=== PATIENT | male | born 1950 | race Caucasian/White ===

== ENCOUNTER 2024-08-05 05:50 | Emergency (ER) | payer MEDICARE, OTHER, SELFPAY ==
[2024-08-05 05:52] VITALS: BP 126/64
[2024-08-05 07:32] LABS: % Basophils 0.8 % (0-2); % Eosinophils 1.5 % (0-6); % Immature Granulocytes 0.2 % (0-0.5); % Lymphocytes 30.1 % (20.5-51.1); % Neutrophils 60.4 % (42.2-75.2); Absolute Basophils 0.1 10^3/uL (0-0.2); Absolute Eosinophils 0.2 10^3/uL (0-0.7); Absolute Lymphocytes 3.1 10^3/uL (1.2-3.4); Absolute Monocytes 0.7 10^3/uL (0.1-0.6); Absolute Neutrophils 6.1 10^3/uL (1.4-6.5); Hematocrit 44.3 % (39.0-52.0); Hemoglobin 14.6 g/dL (13.0-18.0); Mean Corpuscular Hgb 28.7 pg (27.0-31.0); Mean Corpuscular Volume 87.2 fL (80.0-94.0); Mean Platelet Volume 11.2 fL (7.4-10.4); Nucleated Red Blood Cells % 0 % (-); Platelet Count 166 10^3/uL (130-400); Red Blood Cell Count 5.08 10^6/uL (4.70-6.10); Red Cell Dist. Width 13.2 % (11.5-14.5); White Blood Cell Count 10.2 10^3/uL (4.8-10.8)
[2024-08-05 07:44] VITALS: BP 145/76
[2024-08-05 07:46] VITALS: BP 145/76
[2024-08-05 07:47] LABS: ALT (SGPT) 29 U/L (0-50); AST (SGOT) 21 U/L (17-59); Albumin 4.4 g/dl (3.5-5.0); Alkaline Phosphatase 86 U/L (38-126); Blood Urea Nitrogen 29 mg/dl (9-20); Calcium 9.2 mg/dl (8.4-10.2); Carbon Dioxide 29 mmol/L (22-30); Chloride 103 mmol/L (98-107); Glucose 158 mg/dl (70-99); Potassium 4.2 mmol/L (3.5-5.1); Sodium 141 mmol/L (135-145); Total Bilirubin 0.4 mg/dl (0.2-1.3); Total Protein 6.6 g/dl (6.3-8.2); eGFR 49.16
[2024-08-05 07:52] LABS: NT-proBNP 353 pg/ml
--- NOTE | 2024-08-05 08:22 | ED.GENMED ---
History of Present Illness
General
Chief Complaint: Swelling
Source: patient and spouse
Time Seen by Provider: 08/05/24 07:17
History of Present Illness
History of Present Illness:
74-year-old male with past medical history of hypertension, hyperlipidemia, insulin-dependent diabetes, chronic kidney disease status post renal transplant presenting to the emergency department for a multitude of symptoms including bilateral lower
extremity edema that waxes and wanes, blisters to the right foot, worsening neuropathy, difficulty ambulating due to the pain, difficult to control blood sugars, diarrhea few days ago and also notes last night had some left-sided chest/axillary
discomfort. Patient without any fevers, chills, rigors, nausea, vomiting, abdominal pain. notes that he has had some drainage from the blisters to the right foot which she has never had before and patient is unsure as to how the blisters
ultimately developed. Patient states that the neuropathy presently is not any worse now than his normal. No changes to medications. Of note, patient did recently have CTA of the head and neck due to monitoring of a cerebral aneurysm and due to
previous history of stroke about a year and a half ago.
Past History
Past History
ED Past Medical History: CVA, HTN, Hypercholesterolemia, IDDM, Renal failure (Dialysis and saturday, Right arm fistula), Psychiatric ( anxiety, depression) and Other (Diabetic neuropathy, meningitis,UTI, macular degeneration, diabetic
nephropathy, Narcolepsy, )
ED Past Surgical History: Appendectomy and Other (Right AV fistula. Renal transplant October 2022)
Social History
Tobacco: Former smoker
Alcohol: None
Drug: None
Personal:
Living: with family
Employment: Employed
Family History
Family History: Diabetes
Review of Systems
Review of Systems
All Other Systems: ROS reviewed and negative except as documented in HPI and ROS
Phy Exam
Physical Exam
Physical Exam:
GENERAL: Alert , in no apparent distress
HEAD: NCAT
EYE: clear conjunctiva
NECK: Supple
ENT: o/p clr, mmm.
CARDIAC: Regular rate and rhythm .
LUNGS: Clear breath sounds bilaterally, no acute respiratory distress, no wheezes/rales/rhonchi
NEUROLOGICAL: Alert and oriented x 3
SKIN: Warm and dry, right lower extremity: Large blister spanning the first metatarsal through the midfoot and down towards the calcaneus with some skin sloughing and clear fluid draining. There is also clear fluid-filled blister at the distal 2nd
through 3rd metatarsal going towards the digits. There is no skin breakdown interdigitally. No surrounding erythema
MUSCULOSKELETAL: Trace nonpitting ankle edema left slightly greater than right. Patient has palpable pedal and tibial pulses bilaterally which were confirmed via Doppler. Sensation blunted bilaterally to light touch however patient reports that
this is baseline. Patient still has good range of motion of the digits, foot and ankle.
PSYCH: Normal and appropriate interaction.
Scores
Heart Failure Risk
Heart Failure Risk Score: Not Applicable
Heart Score for Chest Pain Patients
STEMI patient?: Not applicable
Withdrawal Assessment of Alcohol
Withdrawal Assessment Completed?: Not applicable
Course
Orders/Labs/Results
Orders:
Orders
08/05/24 06:08
ECG [Electrocardiogram (*1)] Urgent
Reason for Study: Shortness of Breath
EKG- Treatment ONCE
08/05/24 07:05
BNP [NT-proBNP] Urgent
Complete Blood Count/With Diff Urgent
Comprehensive Metabolic Panel Urgent
Troponin I Urgent
Comment: ADD ON
08/05/24 07:31
US Periph Venous LOWER Ext Jamel Urgent
Comment:
Reason For Exam: edema
08/05/24 07:37
Add On- LAB Urgent
Tests Added?: troponin
Abnormal Lab Results
08/05/24
07:05
MPV 11.2 H fL
(7.4-10.4)
Absolute Monos (auto) 0.7 H 10^3/uL
(0.1-0.6)
BUN 29 H mg/dl
(9-20)
Creatinine 1.5 H mg/dL
(0.7-1.3)
Glucose 158 H mg/dl
(70-99)
08/05/24 07:05
08/05/24 07:05
Vital Signs
Initial and Last Documented VS:
Initial Vital Signs
Temp Pulse Resp BP Pulse Ox
97.9 F 54 20 126/64 97
08/05/24 05:52 08/05/24 05:52 08/05/24 05:52 08/05/24 05:52 08/05/24 05:52
Last Documented Vital Signs
Temp Pulse Resp BP Pulse Ox
97.9 F 55 14 145/76 96
08/05/24 05:52 08/05/24 09:00 08/05/24 09:00 08/05/24 07:46 08/05/24 09:47
MDM/Problems Addressed
Differential Diagnosis Includes:
Worsening of diabetic neuropathy, cellulitis, peripheral vascular/peripheral arterial disease, worsening renal dysfunction, less concern for acute CHF
MDM/Problems Addressed:
74-year-old male presenting to the emergency department for evaluation of a multitude of concerns stemming around worsening neuropathy and blister formation to the right lower extremity. Secondary concerns of blood sugars that have been both high
and low, couple of days ago had some diarrhea and last night had some chest discomfort. My suspicion for any emergent pathologies is quite low due to the amount of concerns patient presented to the ER with today however given his I do feel patient
will likely need further evaluation as an outpatient. While here in the ER we will check labs to ensure stable renal function as well as an ultrasound to rule out DVT. Patient's EKG done in triage is with evidence for ischemia and will also check
a troponin given the reported chest pain last night. Due to his history of diabetes with a blister formation we will likely start patient on an antibiotic for section prevention. He will likely need to follow-up with podiatry as well as wound care
center for further evaluation and he notes he has been seen at [facility] wound care center in the past
Chronic conditions affecting care: DM and Kidney disease
*Radiology
Radiology exam reviewed: radiology read reviewed
*Pulse Oximetry
Patient hypoxic: no
*EKG
Heart Rate: 51
Rate: bradycardiac
Rhythm: sinus arrhythmia
Novinger: normal axis
Ischemia: no ischemia
*Critical Care Note
Total Time (30-74mins, 75-104mins- exclusive of procedures): Not Applicable
Data Reviewed
Review of Other/Old Records Reveals: Labs and Records
Patient Management
Escalation/DeEscalation of care consider admission/obs:
Patient's workup unremarkable for any acute pathology. Prescription for Bactrim was sent to pharmacy to cover for any potential infection. Information for podiatry was provided. Patient already known to wound care center and encouraged to
follow-up with them as well. He will follow-up with primary care provider. Aware of return precautions to the ER
ED Attending Note
-
Portions of this chart may have been created with voice recognition software.� Occasional wrong word or��sound alike� substitutions may have occurred due to the inherent limitations of voice recognition software.
Discharge Plan
Departure
Patient Disposition: Home (Routine Discharge)
Date of Disposition: 08/05/24
Time of Disposition: 09:09
Patient with high blood pressure during this ER visit?: Yes
Discharge Problem:
Blister of foot, right, Blister of foot, left, CKD (chronic kidney disease)
Instructions: Diabetes and infections
Prescriptions:
New
sulfamethoxazole-trimethoprim [Bactrim DS] 800-160 mg tablet
1 tab PO BID 10 Days Qty: 20 0RF
No Action
aspirin 81 MG tablet,chewable
81 mg PO DAILY 0RF
fenofibrate nanocrystallized 145 MG tablet
145 mg PO DAILY
pravastatin 20 MG tablet
20 mg PO DAILY
gabapentin 300 MG capsule
300 mg PO HS
insulin lispro [Humalog KwikPen Insulin] 100 UNIT/ML insulin pen
10 units SC AC
Medical Marijuana
2 - 3 puff inhalation HSPRN PRN (Reason: sleep)
clonazepam 1 MG tablet
1 mg PO BID
Patient Comments:
09/26/2021: last filled 09/07/21, 90 tabs for 30 days from [facility]
valganciclovir 450 mg Tablet
450 mg PO DAILY
carvedilol 6.25 mg Tablet
6.25 mg PO BID
sulfamethoxazole-trimethoprim [Bactrim] 400-80 mg Tablet
1 tab PO DAILY
tolterodine 1 mg Tablet
1 mg PO DAILY
prednisone 5 mg Tablet
5 mg PO DAILY
pantoprazole [Protonix] 40 mg Tablet,Delayed Release (Dr/Ec)
40 mg PO DAILY
ropinirole 0.5 mg Tablet
0.5 mg PO HS
furosemide 20 mg Tablet
20 mg PO DAILY
albuterol 90 mcg/actuation Aerosol
90 mcg INHALATION PRN PRN (Reason: wheezing)
Rx Instructions:
2 puffs into the lungs every 4 hours as needed for wheezing
tacrolimus [Prograf] 1 mg Capsule
2 mg PO Q12H
mycophenolate sodium 180 mg Tablet,Delayed Release (Dr/Ec)
180 mg PO Q12
Rx Instructions:
4 tablets every 12 hours
insulin glargine [Lantus Solostar U-100 Insulin] 100 unit/mL (3 mL) Insulin Pen
25 unit SC HS
vibegron 75 mg Tablet
75 mg PO DAILY
Vitamin D3
50,000 units PO DAILY
hydralazine 25 mg Tablet
25 mg PO TID Qty: 30 0RF
midodrine 5 mg tablet
5 mg PO TID PRN (Reason: for SBP < 100 or dizziness) Qty: 60 0RF
Referrals:
Mary Kwon DPM [Active] - (Podiatry)
UNKNOWN - PT DOES,NOT KNOW [Family Provider] -
Interventions
Interventions:
*Risk Screen - Suicide Last Done: 08/05/24 05:52
*General Assessment Last Done: 08/05/24 07:45
*Neglect/Abuse Screening Last Done: 08/05/24 05:52
*ED COVID-19 Vaccine History Last Done: 08/05/24 07:45
*Nursing Disposition Last Done: 08/05/24 09:51
ED- Cardiac Assessment Last Done: 08/05/24 09:46
ED- Pulmonary Assessment Last Done: 08/05/24 09:47
ED-Skin Assessment Last Done: 08/05/24 09:47
Discharge Date and Time
Discharge Date/Time: 08/05/24 09:52
Print Language: MALIAN
[2024-08-05 08:30] LABS: Troponin I < 0.012 ng/ml
== END 2024-08-05 09:52 | disposition home or self-care (01) ==
LOC: EMR 05:50
PROVIDERS: EMERGENCY PHYSICIAN Emergency Medicine
DX: S90.821A Blister (nonthermal), right foot, initial encounter (principal); S90.822A Blister (nonthermal), left foot, initial encounter; I12.0 Hypertensive chronic kidney disease with stage 5 chronic kidney disease or end stage renal disease; E11.22 Type 2 diabetes mellitus with diabetic chronic kidney disease; X58.XXXA Exposure to other specified factors, initial encounter; N18.6 End stage renal disease; E78.00 Pure hypercholesterolemia, unspecified; F41.9 Anxiety disorder, unspecified; G47.419 Narcolepsy without cataplexy; E11.40 Type 2 diabetes mellitus with diabetic neuropathy, unspecified; Z83.3 Family history of diabetes mellitus; Z86.73 Personal history of transient ischemic attack (TIA), and cerebral infarction without residual deficits; Z87.440 Personal history of urinary (tract) infections; Z87.891 Personal history of nicotine dependence; Z90.49 Acquired absence of other specified parts of digestive tract; Z94.0 Kidney transplant status; Z99.2 Dependence on renal dialysis
CPT/HCPCS: 99284; 80053; 83880; 84484; 85025; 93005; 93970

== ENCOUNTER → 2024-08-07 08:18 | Outpatient (REF) | payer MEDICARE, OTHER, SELFPAY | LOC: WOUND 08:18 | PROVIDERS: ATTENDING PHYSICIAN Surgery; FAMILY PHYSICIAN Internal Medicine | DX: L97.521 Non-pressure chronic ulcer of other part of left foot limited to breakdown of skin (principal); Z94.0 Kidney transplant status; Z79.620 Long term (current) use of immunosuppressive biologic | CPT/HCPCS: 99213 ==

== ENCOUNTER 2024-08-14 13:52 | Inpatient (IN) | payer MEDICARE, OTHER, SELFPAY ==
[2024-08-14] VITALS (8 sets, daily range): BP systolic 129–160; BP diastolic 59–75; BMI 31.7; BMI 30.8
[2024-08-14 11:01] LABS: % Basophils 0.4 % (0-2); % Eosinophils 1.5 % (0-6); % Immature Granulocytes 0.4 % (0-0.5); % Monocytes 9.5 % (1.7-9.3); % Neutrophils 69.2 % (42.2-75.2); Absolute Eosinophils 0.2 10^3/uL (0-0.7); Absolute Lymphocytes 2.1 10^3/uL (1.2-3.4); Absolute Neutrophils 7.6 10^3/uL (1.4-6.5); Hematocrit 40.6 % (39.0-52.0); Hemoglobin 13.6 g/dL (13.0-18.0); Mean Corp Hgb Conc. 33.5 g/dL (33.0-37.0); Mean Corpuscular Hgb 29.1 pg (27.0-31.0); Mean Corpuscular Volume 86.8 fL (80.0-94.0); Mean Platelet Volume 10.5 fL (7.4-10.4); Nucleated Red Blood Cells % 0 % (-); Platelet Count 166 10^3/uL (130-400); Red Blood Cell Count 4.68 10^6/uL (4.70-6.10); Red Cell Dist. Width 13.2 % (11.5-14.5)
[2024-08-14 11:14] LABS: ALT (SGPT) 26 U/L (0-50); AST (SGOT) 21 U/L (17-59); Albumin 4.6 g/dl (3.5-5.0); Alkaline Phosphatase 107 U/L (38-126); Blood Urea Nitrogen 37 mg/dl (9-20); Calcium 9.3 mg/dl (8.4-10.2); Carbon Dioxide 27 mmol/L (22-30); Chloride 103 mmol/L (98-107); Estimated Creatinine Clearance 52 ml/min; Glucose 104 mg/dl (70-99); Potassium 4.9 mmol/L (3.5-5.1); Sodium 139 mmol/L (135-145); Total Bilirubin 0.2 mg/dl (0.2-1.3)
--- NOTE | 2024-08-14 11:25 | ED.GENMED ---
History of Present Illness
General
Chief Complaint: Skin Problem
Source: patient
Exam Limitations: none
Time Seen by Provider: 08/14/24 10:24
Nursing documentation reviewed up to this point in time: agreed with
History of Present Illness
History of Present Illness:
74-year-old male history of renal transplant, hypertension, hyperlipidemia, insulin-dependent diabetes presents from wound care center for concerns for diabetic foot infection. Patient was seen here in 1�15 with waxing and waning swelling to the
right leg which was associated with some blisters on his right talus. he was sent home with bactrim and followed up with wound care
they noticed the blisters are now popped and he has worsening appaernace of the wound and some weeping, pain, redness, and mild redness up the leg concerning for progressing infection
pt has some neuropathy
no fever/chills, injuries, weakness
Past History
Past History
ED Past Medical History: CVA, HTN, Hypercholesterolemia, IDDM, Renal failure (Dialysis and saturday, Right arm fistula), Psychiatric ( anxiety, depression) and Other (Diabetic neuropathy, meningitis,UTI, macular degeneration, diabetic
nephropathy, Narcolepsy, )
ED Past Surgical History: Appendectomy and Other (Right AV fistula. Renal transplant October 2022)
Social History
Tobacco: Former smoker
Alcohol: None
Drug: None
Personal:
Living: with family
Employment: Employed
Family History
Family History: Diabetes
Review of Systems
Review of Systems
Allergies reviewed?: Yes
All Other Systems: Not applicable
Phy Exam
Physical Exam
Physical Exam:
GENERAL: Alert , in no apparent distress
EYE: pupils equal and reactive
NECK: Supple
ENT: o/p clr, mmm.
CARDIAC: Regular rate and rhythm . palpable DP pulse; warm foot
LUNGS: Clear breath sounds bilaterally, no acute respiratory distress, no wheezes/rales/rhonchi
ABDOMEN: Soft, without focal tenderness, no r/g, no cvat, normal bowel sounds
NEUROLOGICAL: Alert and oriented, no focal neuro deficits,
sensation slightly diminished feet b/l
strength intact
SKIN: Warm
R side toes have unroofed blisters, erythematous skin with some streaking erythema and
MUSCULOSKELETAL: No edema, well perfused. neg sid's sign
PSYCH: Normal and appropriate interaction.
Course
Orders/Labs/Results
Orders:
Orders
08/14/24 Breakfast
2000 calorie (17 carb) Diabetic
At Your Request: Full Participation
Does patient need a safe tray?: No
08/14/24 10:49
C-Reactive Protein Urgent
Comment: ADD ON
CMP [Comprehensive Metabolic Panel] Urgent
Complete Blood Count/With Diff Urgent
Erythrocyte Sed Rate Urgent
Comment: ADD ON
08/14/24 11:18
Add On- LAB Urgent
Tests Added?: crp, esr
08/14/24 11:19
CR Foot - Right Min 3 Views Urgent
Comment:
Reason For Exam: foot infection diabetic
08/14/24 11:49
Lactic Acid Urgent
Blood Culture Urgent
OWEN Source: Blood/Venous
Specimen Description:
08/14/24 11:54
Piperacillin/Tazo 3.375 Gram [Zosyn] 3.375 gram in 50 ml IV NOW
08/14/24 12:31
HYDROmorphone [Dilaudid] 0.5 mg IV NOW STA
08/14/24 12:41
Vancomycin [Vancocin] 1,500 mg 0.9% Sodium Chloride 500 ml [Nss] 500 ml IV NOW
08/14/24 13:23
Admit/Transfer Patient As Directed
Co-Sign Provider:
Level of Care: Inpatient admission
Assign to:: Medical/Surgical
Physician / Group: veldanda
Diagnosis: DM foot infection
Reason for Hospitalization: DM foot infectin
Expected length of stay greater than two midnights?: Yes
ELOS- Estimated Length of Stay in days: 3
I certify the patient meets the requirements for IP care: Yes
PRN Pain Medication Management As Directed
May give lesser potent ordered pain med per pt: Yes
preference::
Protocol:: Medication orders for pain may be administered in a
manner that supports deferring to patient preference
when the pt is:
- Requesting an ordered lesser potent pain medication.
Least to most potent pain medications are defined
as: acetaminophen < NSAID < tramadol < opioids
(morphine, oxycodone, hydromorphone).
- Requesting a lesser dose of the same medication IF
ORDERED.
- Requesting a less intrusive route of administration
if both routes are prescribed by the provider (PO <
IV).
08/14/24 13:24
Code Status As Directed
Resuscitation Status: Full Code
08/14/24 13:32
PODIATRY CONSULT Routine
Consulting Provider: Jermaine Samano
Was physician already notified: Yes
08/14/24 17:49
WOUND/OSTOMY CONSULT Routine
Reason for Consult: right foot wounds
Acetaminophen [Tylenol/Feverall] 650 mg RECTAL Q4HPRN PRN
Acetaminophen [Tylenol] 650 mg PO Q4HPRN PRN
Clonazepam [Klonopin] 1 mg PO BIDPRN PRN
Dextrose 50%-Water [Dextrose 50% Syringe] 12.5 grams IV [id number] PRN
Glucagon [GlucaGen] 1 mg IM PRN PRN
Insulin Aspart Corrective Low [Novolog Flexpen-Low Resistance] See Protocol SC AC
Tacrolimus [Prograf] 2 mg PO Q12H
insulin lispro [Humalog KwikPen Insulin] 5 units SC AC
Activity As Directed
Activity Level: Out of Bed-Early Mobility
Bedside Glucose Monitoring As Directed
Frequency: AC&HS
Additional Instructions:: Change to q6h if pt on TPN, tube feeding or not eating
Intake/ Output As Directed
Frequency: Per unit guidelines
Vital Signs As Directed
Frequency: Per unit guidelines
DX Deep Vein Thrombosis Video Routine
08/14/24 20:00
Carvedilol [Coreg] 6.25 mg PO BID
Heparin 5,000 units SC Q12
Mycophenolic Acid Dr [Myfortic Delayed Rel.] 720 mg PO BID
omega-3 acid ethyl esters [Lovaza] 2 cap PO BID
08/14/24 22:00
insulin glargine [Lantus Solostar U-100 Insulin] 10 unit SC HS
08/15/24 06:00
Basic Metabolic Panel IN AM
Complete Blood Count/No Diff IN AM
Glycohemoglobin (HgbA1c) IN AM
08/15/24 08:00
Aspirin Low Dose EC [Aspir Low (Enteric Coated)] 81 mg PO DAILY
Atorvastatin [Lipitor] 40 mg PO DAILY
Prednisone [Deltasone] 5 mg PO DAILY
magnesium oxide 400 mg PO DAILY
vibegron 75 mg PO DAILY
08/16/24 06:00
Basic Metabolic Panel IN AM
Complete Blood Count/No Diff IN AM
08/17/24 06:00
Basic Metabolic Panel IN AM
Complete Blood Count/No Diff IN AM
08/18/24 06:00
Complete Blood Count/No Diff IN AM
Abnormal Lab Results
08/14/24
10:49
WBC 11.0 H 10^3/uL
(4.8-10.8)
RBC 4.68 L 10^6/uL
(4.70-6.10)
MPV 10.5 H fL
(7.4-10.4)
Absolute Neuts (auto) 7.6 H 10^3/uL
(1.4-6.5)
Absolute Monos (auto) 1.0 H 10^3/uL
(0.1-0.6)
Lymphocytes % 19.0 L %
(20.5-51.1)
Monocytes % 9.5 H %
(1.7-9.3)
BUN 37 H mg/dl
(9-20)
Creatinine 1.6 H mg/dL
(0.7-1.3)
Glucose 104 H mg/dl
(70-99)
C-Reactive Protein 17.80 H mg/L
(0.0-10.00)
08/14/24 10:49
08/14/24 10:49
Vital Signs
Initial and Last Documented VS:
Initial Vital Signs
Temp Pulse Resp BP Pulse Ox
37.0 C 60 20 146/65 97
08/14/24 09:30 08/14/24 09:30 08/14/24 09:30 08/14/24 09:30 08/14/24 09:30
Last Documented Vital Signs
Temp Pulse Resp BP Pulse Ox
37.0 C 60 20 159/75 94
08/14/24 09:30 08/14/24 09:30 08/14/24 09:30 08/14/24 14:00 08/14/24 13:28
MDM/Problems Addressed
Differential Diagnosis Includes:
diabetic food ulcer, cellulitis, osteomyeltiiss
MDM/Problems Addressed:
74 y/o M with h/o renal TXP 2022
IDDM, diabetic neuropathy
came here 08/05 for foot blisters and some leg swelling; had neg dvt US and was started on bactrim
went to dr. lopez who saw him last week adn then again today and sent him in for worsening diabetic foot infection: blisters popped, underlying erythema, some weeping;
no fever
cr is 1.6 which is relatively unchanged; good pulse; xray shows no obvious osteo. vanc/zosyn
*Critical Care Note
Total Time (30-74mins, 75-104mins- exclusive of procedures): Not Applicable
ED Attending Note
-
Portions of this chart may have been created with voice recognition software.� Occasional wrong word or��sound alike� substitutions may have occurred due to the inherent limitations of voice recognition software.
Discharge Plan
Departure
Patient Disposition: Admit
Date of Disposition: 08/14/24
Time of Disposition: 12:28
Admit to: Med/Surg
Presentation/result/management discussed w/ accepting MD/DO: Hospitalist
Patient with high blood pressure during this ER visit?: No
Condition: Fair
Covid-19: Not Applicable
Discharge Problem:
Diabetic foot infection
Interventions
Interventions:
*Risk Screen - Suicide Last Done: 08/14/24 09:30
*General Assessment Last Done: 08/14/24 09:30
*Neglect/Abuse Screening Last Done: 08/14/24 09:30
ED- Fall Risk Assessment Last Done: 08/14/24 10:40
*ED COVID-19 Vaccine History Last Done: 08/14/24 10:36
*Nursing Disposition Last Done: 08/14/24 17:40
ED-Skin Assessment Last Done: 08/14/24 10:36
Discharge Date and Time
Discharge Date/Time: 08/14/24 17:41
[2024-08-14] MEDS: ZOSYN 50 IV (12:09)
[2024-08-14 12:11] LABS: Lactic Acid 1.2 mmol/L (0.7-2.0)
[2024-08-14 12:20] LABS: Erythrocyte Sed Rate 15 mm/hour (0-20)
[2024-08-14] MEDS: DILAUDID 0.5 MG IV ×2 (12:33→22:51)
[2024-08-14] MEDS: VANCOCIN 530 MG IV (12:49)
--- NOTE | 2024-08-14 13:03 | HPS.HSE ---
Family Physician
-
Family Physician: Ben Suarez
Chief Complaint
-
Left foot diabetic infection
History of Present Illness
74-year-old male history of renal transplant, hypertension, hyperlipidemia, insulin-dependent diabetes presents from wound care center for concerns for diabetic foot infection. Patient stated, he was started a week and a half ago with a small
blister on his left great toe. patient was seen here in 08/05 wit swelling to the right leg which was associated with some blisters on his right talus. Patient was sent home on Bactrim. He was evaluated by wound care a week ago. He was doing his
wound care as instructed by wound care physician. Today he was evaluated at the wound care again and asked him to come to the ER. the blisters spreaded to the rest of his toes and the blisters popped. noticed worsening swelling, bleeding. Patient
denied any fever, chills, chest pain, short of breath. Patient denied any headache, dizzy, syncope. Patient denied any abdominal pain, nausea, vomiting or diarrhea. Patient denied dysuria hematuria.
Patient received Vanco, Zosyn, Dilaudid in ER. Admitting for further management. Blood culture sent from
Medical History
Past Medical History
Past Medical History: Reports Other
Additional Past Medical History:
Peripheral artery disease
End-stage renal disease
Type 2 diabetes
Urinary retention
Hypertension
Obstructive sleep apnea
ADHD
Rectal dysfunction
Anxiety
Diabetic neuropathy
Retinopathy
Orthostatic hypotension
UTI
Past Surgical History: Reports Other
Additional Past Surgical History:
Appendectomy
Laser treatment of both eyes
Right upper extremity speech slow reaction
Right upper extremity fistulogram
Right upper extremity fistula revision
Social History
Tobacco: Non-smoker
Alcohol: None
Drug: None
Personal:
Living: With Family
Family History
Family History: Not pertinent
Allergies / Home Medications
Allergies reflects when Allergies were last updated in [employer].
Home Medications with original date entered in [employer]
Allergy/Medication List:
Allergies
Allergy/AdvReac Type Severity Reaction Status Date / Time
No Known Allergies Allergy Verified 08/14/24 09:32
Home Medications
gabapentin 300 mg capsule 300 mg PO BID Pain 12/14/21
insulin lispro 100 unit/mL subcutaneous pen (Humalog KwikPen (U-100) Insulin) 10 units SC AC Diabetes 12/14/21
clonazepam 1 mg tablet 1 mg PO BIDPRN PRN anxiety 09/25/22
carvedilol 6.25 mg tablet 6.25 mg PO BID Heart Disease/Condition 07/23/23
furosemide 20 mg tablet 20 mg PO DAILY Fluid Retention/Swelling 07/23/23
insulin glargine 100 unit/mL (3 mL) subcutaneous pen (Lantus Solostar U-100 Insulin) 45 unit SC HS diabetes 07/23/23
pantoprazole 40 mg tablet,delayed release (Protonix) 40 mg PO DAILY Gastrointestinal Issue 07/23/23
prednisone 5 mg tablet 5 mg PO DAILY Anti-Inflammatory 07/23/23
tacrolimus 1 mg capsule, immediate-release (Prograf) 2 mg PO Q12H renal transplant 07/23/23
valganciclovir 450 mg tablet 450 mg PO DAILY infection prophylaxis 07/23/23
vibegron 75 mg tablet 75 mg PO DAILY Urinary Issue 07/23/23
sulfamethoxazole 800 mg-trimethoprim 160 mg tablet (Bactrim DS) 1 tab PO BID 10 days #20 tabs 08/05/24
aspirin 81 mg tablet,delayed release 81 mg PO DAILY 08/14/24
atorvastatin 40 mg tablet (Lipitor) 40 mg PO DAILY 08/14/24
fenofibrate nanocrystallized 145 mg tablet 145 mg PO DAILY 08/14/24
hydralazine 25 mg tablet 25 mg PO TID 08/14/24
midodrine 5 mg tablet 5 mg PO TIDPRN PRN lower bp 08/14/24
mycophenolate sodium 180 mg tablet,delayed release 180 mg PO BID 08/14/24
omega-3 acid ethyl esters 1 gram capsule (Lovaza) 2 cap PO BID 08/14/24
tolterodine 1 mg tablet 1 mg PO DAILY 08/14/24
Review of Systems
-
Constitutional: Reports No Symptoms
EENT: Reports No Symptoms
Respiratory: Reports No Symptoms
Cardiac: Reports No Symptoms
Abdomen/GI: Reports No Symptoms
: Reports No Symptoms
Musculoskeletal: Reports No Symptoms
Skin: Reports Other (Right foot/toes wounds )
Neurological: Reports No Symptoms
Endocrine: Reports No Symptoms
Hematologic/Lymphatic: Reports No Symptoms
Psych: Reports No Symptoms
Physical Exam
Vital Signs
Vital Signs
Temp Pulse Resp BP Pulse Ox
98.6 F 60 20 129/72 96
08/14/24 09:30 08/14/24 09:30 08/14/24 09:30 08/14/24 12:09 08/14/24 12:30
Physical Exam
General: Well Developed, Well Nourished and No Apparent Distress
HEENT: NormoCephalic, Moist mucous membranes and Atraumatic
Respiratory: Clear
Cardiac: S1/S2 and Regular Rhythm; No Murmur or Rub
GI: Soft, Non Tender, Non Distended and Normal Bowel Sounds; No Organomegaly
Rectal: Deferred by Provider
Musculoskeletal: No Clubbing, No Cyanosis and Other (Right toes wounds, bleeding, swelling. )
Skin: No Rash
Neuro: AO x 3 and Nonfocal/grossly intact
Psych: Calm
Laboratory Results
-
08/14/24 10:49
08/14/24 10:49
Laboratory Results
Lactic Acid 1.2 mmol/L (0.7-2.0) 08/14/24 11:49
Total Bilirubin 0.2 mg/dl (0.2-1.3) 08/14/24 10:49
AST 21 U/L (17-59) 08/14/24 10:49
ALT 26 U/L (0-50) 08/14/24 10:49
Alkaline Phosphatase 107 U/L (38-126) 08/14/24 10:49
Data Reviewed
-
Diagnostic Radiology: Report Reviewed by me
Lab Data: Labs Reviewed by me
Impression/Plan
-
# Diabetic right foot infections
-X-ray negative for osteo
-Vanco and Zosyn continue
-Blood culture sent from
-Wound care consulted
-WBC of 11.0, CRP 17.80
# CKD stage IIIb
#Renal Transplant Status
�- s/p renal transplant in 10/2022.
-Creatinine 1.6
-Continue to monitor
-Mycophenolate, prednisone, Prograf continued
#Orthostatic Hypotension
-Patient using compression stockings
-Oral midodrine 5 mg 3 times daily as needed for symptomatic care.
#Hypertension, uncontrolled
-Blood pressure stable
-Coreg continued with hold parameters
# Hyperlipidemia
-Atorvastatin continued
#DM-II
�-Lantus 10 units at bedtime
-Lispro 5 with meals
-Sliding scale
-CHO diet
#Anxiety / Insomnia
�-Clonazepam continued
#DVT Prophylaxis:� SCDs
#Code Status:� Full
--- NOTE | 2024-08-14 13:05 | PHANOTE ---
Addendum entered by Arabella Squires 08/14/24 14:40:
patient gave me debby celphone number [phone] and son norm [phone]
Addendum entered by Arabella Squires 08/14/24 13:14:
patient does not ecw records, last message in [facility] was patient transferred to [facility]. called [phone] to have [facility] fax of med list
Original Note:
med rec note- unable to confirm meds with patient he keeps saying i think so to most of the medication he note filled in the past 1 or more. the number on file for family is not correct and does not work. patient also claims he has medical marijuana
card but he daughter buys the items for herself
--- NOTE | 2024-08-14 13:34 | W.PN.UPDATE ---
Update Note
Progress Note Update
This is an addendum to the H&P written by Faina Gomez on 08/14/2024. Patient seen and examined independently with [facility].
74-year-old male past medical history of CAD, hypertension, hyperlipidemia, diabetes, diabetic neuropathy, CKD s/p renal transplant, CVA, anxiety/depression, presenting for bleeding blisters of the right foot toes.
He came to the emergency room on 08/05 was prescribed Bactrim and followed up with wound care who referred him to the emergency room given worsening blisters.
He has bleeding blisters of the right toes as well as right heel.
Labs unremarkable. Renal function at baseline.
X-ray of the foot shows prominent soft tissue edema without evidence of osteomyelitis.
Vancomycin and Zosyn. Wound care consulted. Podiatry consulted for potential debridement.
--- NOTE | 2024-08-14 15:06 | CON.ID ---
Consultation
-
Date/Time Consultation Requested: August 14, 2024 1445
Date/Time Consultation Performed: August 14, 2024 1510
Requesting Provider: Faina MENDEZ
Performing Provider: Dr. Sandy Fraire
Reason for Consultation: Foot wound
Chief Complaint / Past History
Chief Complaint
Worsening foot wound
History of Present Illness
73-year-old man with history of diabetes and diabetic nephropathy ultimately resulting in end-stage renal disease s/p renal transplant in October 2022, who [facility] today due to worsening foot wounds. Patient presented to ED on
08/05 with about 1 to weeks of BLE edema with blisters right great toe, lateral foot and arch, left foot plantar blister. DVT ruled out. He was discharged on Bactrim DS 1 tab bid and referred to [facility]. Seen at [facility] 08/07 blisters noted R>L
feet. PCP deemed peripheral edema and blisters thought to be due to IV belatacept (started 07/05/2023) which was discontinued about a month ago. He had follow-up today at [facility], noted to have skin sloughing and sent to ED. He has neuropathy but
feels burning sensation over wounds. He reports the skin started peeling off after he took a shower. Pt denies fevers or chills. Denies new medicine.
Past History
Additional Past Medical History:
Diabetes with neuropathy and nephropathy
ESRD; previously on HD
Living related donor renal transplant 10/31/2022 at [place]
CKD3
HTN
Dyslipidemia
CAD
CVA
YASH on CPAP
Anxiety/depression
Macular degeneration
Narcolepsy
ADHD
Appendectomy
Right AV fistula
TURP
Knee arthroscopic surgery
Allergy History:
No Known Allergies Allergy (Verified 08/14/24 09:32)
Medications Reviewed: Yes
Current Antibiotics:
Vancomycin
Zosyn
Social History
Tobacco: Former Smoker
Alcohol: None
Drug: None
Personal:
Living: With Family
Employment: Retired ([employer])
Family History
Family History: Not Pertinent
Review of Systems
Review of Systems
General: Negative Fever, Chills or Change in Appetite
HEENT: Negative Sinus Problems, Headache or Pharyngitis
Cardiovascular: Edema; Negative Chest Pain or Dyspnea
Respiratory: Negative Dyspnea or Cough
Gasteroenterology: Negative Nausea, Vomiting or Diarrhea
Genital / Urological: Negative Dysuria or Flank Pain
Endocrine: Negative Weakness
Neurological: Negative Dizziness
All systems: All other systems were reviewed and were negative
Vital Signs
Temp Pulse Resp BP Pulse Ox
98.6 F 60 20 159/75 94
08/14/24 09:30 08/14/24 09:30 08/14/24 09:30 08/14/24 14:00 08/14/24 13:28
Physical Exam
Physical Exam
Constitutional: No Acute Distress, Comfortable and Obese
Eyes: No Conjunctival Hemorrhage and Sclera Anicteric
Cardiovascular: Regular Rate and S1/S2
Pulmonary: Clear
Gastrointestinal: Soft, Non Tender, Non Distended and Normal Bowel Sounds
Genito-Urinary: Other (RLQ transplant kidney non-tender)
Extremities: Edema (BLE 2 to 3+) and Pulses (palpable pedal pulses B/L)
Wound: Other (Right foot: sloughing skin first, 2nd, 3rd, 4th toes with underlying bright red tissue, some necrosis 2nd toe, along entire lateral foot is blister open at both ends, large blister on plantar foot, mild erythema dorsum of foot; Left
foot plantar large flat blister)
Neurological: AO x 3
Lab / Diagnostic Study Results
08/14/24 10:49
08/14/24 10:49
Abs Immat Gran (auto) 0.0 10^3/uL (0-0.05) 08/14/24 10:49
Absolute Neuts (auto) 7.6 10^3/uL (1.4-6.5) H 08/14/24 10:49
Absolute Lymphs (auto) 2.1 10^3/uL (1.2-3.4) 08/14/24 10:49
Absolute Monos (auto) 1.0 10^3/uL (0.1-0.6) H 08/14/24 10:49
Absolute Basos (auto) 0.0 10^3/uL (0-0.2) 08/14/24 10:49
Immature Gran % 0.4 % (0-0.5) 08/14/24 10:49
Neutrophils % 69.2 % (42.2-75.2) 08/14/24 10:49
Lymphocytes % 19.0 % (20.5-51.1) L 08/14/24 10:49
Monocytes % 9.5 % (1.7-9.3) H 08/14/24 10:49
Eosinophils % 1.5 % (0-6) 08/14/24 10:49
Basophils % 0.4 % (0-2) 08/14/24 10:49
ESR 15 mm/hour (0-20) 08/14/24 10:49
Lactic Acid 1.2 mmol/L (0.7-2.0) 08/14/24 11:49
C-Reactive Protein 17.80 mg/L (0.0-10.00) H 08/14/24 10:49
Microbiology Results
Micro:
08/14/24 11:49 Blood Culture - Pending
Blood/Venous
08/14/24 R Foot XRAY: Prominent soft tissue edema within the foot and great toe. No erosions or evidence for osteomyelitis, noting that radiographs are relatively insensitive for detection of this pathology.
Assessment / Plan
# Significant ruptured blisters right foot with large area of exposed wound tissue
- Chemoprophylaxis with IV cefazolin 2gIV q8 to prevent bacterial infection of wounds
- DC Vanco and Zosyn
- Will likely need debridement of sloughing skin
- Wound care.
# Renal transplant on tacrolimus, mycophenolate, prednisone
- IV belatacept started 06/2023 and discontinued last month due to possible source of peripheral edema/blisters.
# Conditions prior to admission
Diabetes with neuropathy and nephropathy
ESRD; previously on HD
Living related donor renal transplant 10/31/2022 at [place]
CKD3
HTN
Dyslipidemia
CAD
CVA
YASH on CPAP
Anxiety/depression
Macular degeneration
Narcolepsy
ADHD
Appendectomy
Right AV fistula
TURP
Knee arthroscopic surgery
[2024-08-14 17:44] LABS: Glucose - Point of Care 159 mg/dl (70-99)
--- NOTE | 2024-08-14 17:57 | W.PN.UPDATE ---
Update Note
Progress Note Update
Patient seen at bedside, no concern for abscess
-ID Consult, continue ABx
-Weight bearing left side for transfers right side non weight bearing
-recommend bilateral MRIs, will sign off if negative for abscess
-Wound care consult
[2024-08-14] MEDS: NOVOLOG FLEXPEN 5 UNITS SC (18:13)
[2024-08-14] MEDS: NOVOLOG FLEXPEN-LOW RESISTANCE 1 UNITS SC (18:13)
[2024-08-14] MEDS: MYFORTIC DELAYED REL. 720 MG PO (19:55)
[2024-08-14] MEDS: HEPARIN 5000 UNITS SC (19:55)
[2024-08-14] MEDS: PROGRAF 2 MG PO (19:55)
[2024-08-14] MEDS: COREG 6.25 MG PO (20:08)
[2024-08-14] MEDS: ANCEF 10 IV (21:08)
[2024-08-14] MEDS: KLONOPIN 1 MG PO (21:10)
[2024-08-14] MEDS: LANTUS 0.1 UNITS SC (21:10)
[2024-08-14 21:19] LABS: Glucose - Point of Care 213 mg/dl (70-99)
[2024-08-15] MEDS: ANCEF 10 IV ×3 (05:19→21:45)
[2024-08-15 07:00] VITALS: BP 142/67
--- NOTE | 2024-08-15 08:02 | W.PN.HOSP.TC ---
Today's Communication/Plan
-
see bold
Assessment / Plan
Assessment / Plan
Gen: NAD, AAOx3.
Eyes: EOMI, PERRLA, no scleral icterus.
Neck: supple.
CV: RRR, +S1/S2, no m/r/g.
Resp: CTAB, no rales, wheezes, or rhonchi.
Abd: +BS, soft, NT, ND
Skin: C/D/I dressing RLE, No rashes.
Neuro: CN 2-12 intact, non-focal.
Psych: Normal mood and affect.
MRI R foot w/wo: Moderate diffuse edema throughout the dorsal midfoot suggesting cellulitis. No loculated fluid collections. No MR evidence for osteomyelitis. Scattered mild degenerative changes.
RLE U/S: No evidence of DVT of the right lower extremity. Mild right calf edema.
Diabetic right foot infection/cellulitis:
-Immunosuppressed
-MRI without OM
-cont Ancef as per ID
-follow BCx
-Wound care c/s
Other problems:
CKD3b: s/p renal transplant in 10/2022, cont Mycophenolate, prednisone, Prograf
Orthostatic Hypotension: compression stockings, Midodrine PRN
Essential Hypertension: cont Coreg
Hyperlipidemia: cont statin
DM2: cont Lantus/premeal Novolog, SSI/accuchecks, check a1c
Anxiety, Insomnia: cont clonazepam
Obesity due to excess calories
FULL/SCDs
Anticipated Discharge: 24 - 48 hours
Subjective/Interval History
-
Date of Service: August 15, 2024
No new complaints.
Objective Data
-
Labs:
Laboratory Results
08/15/24
07:45
WBC Pending
Hgb Pending
Hct Pending
Plt Count Pending
Sodium Pending
Potassium Pending
Chloride Pending
Carbon Dioxide Pending
BUN Pending
Creatinine Pending
Glucose Pending
Calcium Pending
Vital Signs:
Vital Signs
Temp Pulse Resp BP Pulse Ox
97.3 F 68 18 160/74 95
08/14/24 23:52 08/14/24 23:52 08/14/24 23:52 08/14/24 23:52 08/14/24 23:52
I&O
08/14/24 08/15/24 08/16/24
06:59 06:59 06:59
Intake Total 960 / 960
Output Total 300 / 300
Balance 660 / 660
[2024-08-15 08:12] LABS: Hemoglobin 13.3 g/dL (13.0-18.0); Mean Corp Hgb Conc. 32.4 g/dL (33.0-37.0); Mean Corpuscular Hgb 28.5 pg (27.0-31.0); Mean Corpuscular Volume 87.8 fL (80.0-94.0); Mean Platelet Volume 10.9 fL (7.4-10.4); Platelet Count 170 10^3/uL (130-400); Red Blood Cell Count 4.67 10^6/uL (4.70-6.10); Red Cell Dist. Width 13.2 % (11.5-14.5); White Blood Cell Count 9.6 10^3/uL (4.8-10.8)
[2024-08-15 08:47] LABS: Blood Urea Nitrogen 25 mg/dl (9-20); Calcium 8.7 mg/dl (8.4-10.2); Carbon Dioxide 24 mmol/L (22-30); Chloride 104 mmol/L (98-107); Estimated Creatinine Clearance 59 ml/min; Glucose 223 mg/dl (70-99); Potassium 5.1 mmol/L (3.5-5.1); Sodium 138 mmol/L (135-145)
[2024-08-15 08:48] LABS: Glucose - Point of Care 217 mg/dl (70-99)
[2024-08-15] MEDS: MYFORTIC DELAYED REL. 720 MG PO ×2 (09:02→20:35)
[2024-08-15] MEDS: ASPIR LOW (ENTERIC COATED) 81 MG PO (09:03)
[2024-08-15] MEDS: MAG-TAB SR 84 MG PO (09:03)
[2024-08-15] MEDS: DELTASONE 5 MG PO (09:03)
[2024-08-15] MEDS: LIPITOR 40 MG PO (09:03)
[2024-08-15] MEDS: COREG 6.25 MG PO ×2 (09:03→20:43)
[2024-08-15] MEDS: NOVOLOG FLEXPEN-LOW RESISTANCE 2 UNITS SC ×3 (09:11→18:45)
[2024-08-15] MEDS: NOVOLOG FLEXPEN 5 UNITS SC ×2 (09:11→13:38)
[2024-08-15] MEDS: PROGRAF 2 MG PO ×2 (09:25→20:35)
[2024-08-15] MEDS: TYLENOL 650 MG PO ×2 (09:25→17:25)
[2024-08-15] MEDS: DILAUDID 0.5 MG IV ×3 (09:26→21:45)
[2024-08-15] MEDS: HEPARIN 5000 UNITS SC ×2 (11:32→20:35)
--- NOTE | 2024-08-15 11:54 | CM ---
Addendum entered by Sharda Mattson RN 08/15/24 12:00:
CM reviewed podiatry's note. Podiatry is recommending nonweightbearing on
right lower extremity and left foot weightbearing for transfers only.
Cm requested PT evaluation to assist with discharge planning efforts .
Original Note:
CM reviewed medical records. Patient lives independently with . Patient does not have a history of SNF. Patient had VN in the past but unclear the agency. Patient is active with his transplant care team and PCP> Patient has medication coverage.
PLAN: home vs. Home with VN.
[2024-08-15 12:58] LABS: Glucose - Point of Care 238 mg/dl (70-99)
[2024-08-15 13:22] LABS: Glycohemoglobin (HgbA1c) 7.4 % (4.0-5.6)
--- NOTE | 2024-08-15 14:02 | W.PN.ID1 ---
Date of Service
Date of Service: August 15, 2024
Today's Communication
Continue cefazolin.
Assessment / Plan
# Significant ruptured blisters right foot with large area of exposed wound tissue
- MRI of right foot: no osteo, no abscess
-Arterial duplex/CAM pending
- Continue IV cefazolin 2gIV q8h for now
- Continue Wound care.
# Renal transplant on tacrolimus, mycophenolate, prednisone
- IV belatacept started 06/2023 and discontinued last month due to possible source of peripheral edema/blisters.
# Conditions prior to admission
Diabetes with neuropathy and nephropathy
ESRD; previously on HD
Living related donor renal transplant 10/31/2022 at [place]
CKD3
HTN
Dyslipidemia
CAD
CVA
YASH on CPAP
Anxiety/depression
Macular degeneration
Narcolepsy
ADHD
Appendectomy
Right AV fistula
TURP
Knee arthroscopic surgery
Chief Complaint
-: Other (wounds)
Subjective / Review of Systems
complain of wound pain
Vital Signs / Physical Exam
Vital Signs
Vital Signs
Temp Pulse Resp BP Pulse Ox
97.7 F 70 18 142/67 95
08/15/24 07:00 08/15/24 07:00 08/15/24 07:00 08/15/24 07:00 08/15/24 07:00
Physical Exam
Constitutional: No Acute Distress
Cardiovascular: Regular Rate and S1/S2
Pulmonary: Clear
Gastrointestinal: Soft, Non Tender and Non Distended
Extremities: Edema (Decreased BLE )
Wound: Other
Neurological: AO x 3
Objective Data
Lab Data
Lab Results
08/15/24 07:45
08/15/24 07:45
ESR 15 mm/hour (0-20) 08/14/24 10:49
Estimated Creat Clear 59 ml/min 08/15/24 07:45
Lactic Acid 1.2 mmol/L (0.7-2.0) 08/14/24 11:49
Total Bilirubin 0.2 mg/dl (0.2-1.3) 08/14/24 10:49
AST 21 U/L (17-59) 08/14/24 10:49
ALT 26 U/L (0-50) 08/14/24 10:49
Alkaline Phosphatase 107 U/L (38-126) 08/14/24 10:49
C-Reactive Protein 17.80 mg/L (0.0-10.00) H 08/14/24 10:49
Most recent labs reviewed.
Micro Results:
08/14/24 11:49 Blood Culture - Preliminary
Blood/Venous No Growth in 24 hours- Final report to follow
08/14/24 R Foot XRAY: Prominent soft tissue edema within the foot and great toe. No erosions or evidence for osteomyelitis, noting that radiographs are relatively insensitive for detection of this pathology.
[2024-08-15 15:00] VITALS: BP 134/63
[2024-08-15 17:31] LABS: Glucose - Point of Care 247 mg/dl (70-99)
--- NOTE | 2024-08-15 17:33 | PTCARENOTE ---
Patient bilateral feet dressings remain c/d/i. WOCN consult ordered placed for Saturday. Pt pain being controlled with PRN IV Dilaudid and Tylenol per order. RN educated patient on weight bearing status, insulin and diabetic diet, medications and plan
of care.
[2024-08-15] MEDS: NOVOLOG FLEXPEN SC (18:43)
[2024-08-15 18:56] LABS: Glucose - Point of Care 231 mg/dl (70-99)
[2024-08-15 21:34] LABS: Glucose - Point of Care 280 mg/dl (70-99)
[2024-08-15] MEDS: LANTUS 0.1 UNITS SC (21:44)
[2024-08-15 23:36] VITALS: BP 157/80
[2024-08-16] MEDS: ANCEF 10 IV ×3 (05:45→21:29)
[2024-08-16 07:00] VITALS: BP 173/71
--- NOTE | 2024-08-16 07:02 | W.PN.HOSP.TC ---
Today's Communication/Plan
-
see bold
Assessment / Plan
Assessment / Plan
Gen: NAD, AAOx3.
Eyes: EOMI, PERRLA, no scleral icterus.
Neck: supple.
CV: remains RRR, +S1/S2, no m/r/g.
Resp: remains CTAB, no rales, wheezes, or rhonchi.
Abd: +BS, soft, NT, ND
Skin: C/D/I dressing RLE, No rashes.
Neuro: CN 2-12 intact, non-focal.
Psych: Normal mood and affect.
MRI R foot w/wo: Moderate diffuse edema throughout the dorsal midfoot suggesting cellulitis. No loculated fluid collections. No MR evidence for osteomyelitis. Scattered mild degenerative changes.
RLE U/S: No evidence of DVT of the right lower extremity. Mild right calf edema.
Diabetic right foot infection/cellulitis:
-Immunosuppressed as below
-MRI without OM
-cont Ancef as per ID
-BCx NGTD
-RLE arterial U/S, CAM pending
-Wound care c/s
Other problems:
CKD3b: s/p renal transplant in 10/2022, cont Mycophenolate, prednisone, Prograf
Orthostatic Hypotension: compression stockings, Midodrine PRN
Essential Hypertension: cont Coreg
Hyperlipidemia: cont statin
DM2: a1c 7.4%, cont Lantus/premeal Novolog, SSI/accuchecks
Anxiety, Insomnia: cont clonazepam
Obesity due to excess calories
FULL/Heparin
Anticipated Discharge: 24 - 48 hours
Subjective/Interval History
-
Date of Service: August 16, 2024
No new complaints.
Objective Data
-
Labs:
Laboratory Results
08/16/24
06:00
WBC Pending
Hgb Pending
Hct Pending
Plt Count Pending
Sodium Pending
Potassium Pending
Chloride Pending
Carbon Dioxide Pending
BUN Pending
Creatinine Pending
Glucose Pending
Calcium Pending
Vital Signs:
Vital Signs
Temp Pulse Resp BP Pulse Ox
97.6 F 64 16 157/80 99
08/15/24 23:36 08/15/24 23:36 08/15/24 23:36 08/15/24 23:36 08/15/24 23:36
I&O
08/15/24 08/16/24 08/17/24
06:59 06:59 06:59
Intake Total 960 / 960 880 / 880
Output Total 300 / 300
Balance 660 / 660 880 / 880
[2024-08-16 07:18] LABS: Hematocrit 41.1 % (39.0-52.0); Hemoglobin 13.7 g/dL (13.0-18.0); Mean Corp Hgb Conc. 33.3 g/dL (33.0-37.0); Mean Corpuscular Hgb 29.1 pg (27.0-31.0); Mean Corpuscular Volume 87.3 fL (80.0-94.0); Mean Platelet Volume 10.7 fL (7.4-10.4); Platelet Count 156 10^3/uL (130-400); Red Blood Cell Count 4.71 10^6/uL (4.70-6.10); Red Cell Dist. Width 12.9 % (11.5-14.5); White Blood Cell Count 7.9 10^3/uL (4.8-10.8)
[2024-08-16 07:54] LABS: Blood Urea Nitrogen 23 mg/dl (9-20); Calcium 9.1 mg/dl (8.4-10.2); Carbon Dioxide 26 mmol/L (22-30); Chloride 102 mmol/L (98-107); Estimated Creatinine Clearance 64 ml/min; Glucose 218 mg/dl (70-99); Potassium 5.1 mmol/L (3.5-5.1); Sodium 138 mmol/L (135-145); eGFR 58.37
[2024-08-16 08:14] LABS: Glucose - Point of Care 196 mg/dl (70-99)
[2024-08-16] MEDS: DELTASONE 5 MG PO (08:48)
[2024-08-16] MEDS: COREG 6.25 MG PO ×2 (08:48→20:38)
[2024-08-16] MEDS: ASPIR LOW (ENTERIC COATED) 81 MG PO (08:48)
[2024-08-16] MEDS: PROGRAF 2 MG PO ×2 (08:48→20:40)
[2024-08-16] MEDS: LIPITOR 40 MG PO (08:48)
[2024-08-16] MEDS: MYFORTIC DELAYED REL. 720 MG PO ×2 (08:48→20:39)
[2024-08-16] MEDS: MAG-TAB SR 84 MG PO (08:48)
[2024-08-16] MEDS: HEPARIN 5000 UNITS SC ×2 (08:49→20:39)
[2024-08-16] MEDS: NOVOLOG FLEXPEN-LOW RESISTANCE 1 UNITS SC (08:50)
[2024-08-16] MEDS: NOVOLOG FLEXPEN 5 UNITS SC ×3 (08:50→18:16)
[2024-08-16] MEDS: TYLENOL 650 MG PO ×2 (08:58→14:49)
[2024-08-16] MEDS: DILAUDID 0.5 MG IV ×3 (08:58→20:41)
--- NOTE | 2024-08-16 09:53 | PTOTSP ---
Reviewed chart and s/w RN who reports pt is noncompliant with being NWB RLE. Observed pt ambulating around his room without an assistive device. S/w Dr. Arriaga and informed him of same. No skilled PT needs as pt is noncompliant with NWB and is able to
ambulate unassisted. Will sign off.
[2024-08-16 11:40] LABS: Glucose - Point of Care 258 mg/dl (70-99)
[2024-08-16] MEDS: NOVOLOG FLEXPEN-LOW RESISTANCE 3 UNITS SC ×2 (12:48→18:16)
--- NOTE | 2024-08-16 13:08 | W.PN.ID1 ---
Date of Service
Date of Service: August 16, 2024
Today's Communication
Continue cefazolin.
Assessment / Plan
# Significant ruptured blisters right foot with large areas of exposed wound tissue
- MRI of right foot: no osteo, no abscess
-Arterial duplex/CAM pending
- Continue IV cefazolin 2gIV q8h for now
- Wound care cosnulted.
# Renal transplant on tacrolimus, mycophenolate, prednisone
- IV belatacept started 06/2023 and discontinued last month due to possible source of peripheral edema/blisters.
# Conditions prior to admission
Diabetes with neuropathy and nephropathy
ESRD; previously on HD
Living related donor renal transplant 10/31/2022 at [place]
CKD3
HTN
Dyslipidemia
CAD
CVA
YASH on CPAP
Anxiety/depression
Macular degeneration
Narcolepsy
ADHD
Appendectomy
Right AV fistula
TURP
Knee arthroscopic surgery
Chief Complaint
-: Other (wounds)
Subjective / Review of Systems
No acute issues.
Vital Signs / Physical Exam
Vital Signs
Vital Signs
Temp Pulse Resp BP Pulse Ox
97.5 F 60 18 173/71 99
08/16/24 07:00 08/16/24 07:00 08/16/24 07:00 08/16/24 07:00 08/16/24 07:00
Physical Exam
Constitutional: No Acute Distress and Comfortable
Cardiovascular: Regular Rate and S1/S2
Pulmonary: Clear
Gastrointestinal: Soft, Non Tender and Non Distended
Extremities: Edema (Decreased BLE )
Wound: Other (foot dressing dry)
Neurological: AO x 3
Objective Data
Lab Data
Lab Results
08/16/24 07:05
08/16/24 07:05
ESR 15 mm/hour (0-20) 08/14/24 10:49
Estimated Creat Clear 64 ml/min 08/16/24 07:05
Lactic Acid 1.2 mmol/L (0.7-2.0) 08/14/24 11:49
Total Bilirubin 0.2 mg/dl (0.2-1.3) 08/14/24 10:49
AST 21 U/L (17-59) 08/14/24 10:49
ALT 26 U/L (0-50) 08/14/24 10:49
Alkaline Phosphatase 107 U/L (38-126) 08/14/24 10:49
C-Reactive Protein 17.80 mg/L (0.0-10.00) H 08/14/24 10:49
Most recent labs reviewed.
Micro Results:
08/14/24 11:49 Blood Culture - Preliminary
Blood/Venous No Growth in 48 hours- Final report to follow
08/14/24 R Foot XRAY: Prominent soft tissue edema within the foot and great toe. No erosions or evidence for osteomyelitis, noting that radiographs are relatively insensitive for detection of this pathology.
[2024-08-16 15:00] VITALS: BP 167/83
[2024-08-16 18:05] LABS: Glucose - Point of Care 272 mg/dl (70-99)
[2024-08-16 20:38] VITALS: BP 178/82
[2024-08-16 21:28] LABS: Glucose - Point of Care 236 mg/dl (70-99)
[2024-08-16] MEDS: LANTUS 0.1 UNITS SC (21:29)
[2024-08-16 23:45] VITALS: BP 208/81
[2024-08-17] VITALS (7 sets, daily range): BP systolic 140–215; BP diastolic 67–90; PULSE 61–69
[2024-08-17] MEDS: DILAUDID 0.5 MG IV ×3 (02:00→20:13)
--- NOTE | 2024-08-17 02:30 | PTCARENOTE ---
pt has elevated BP - DIRECTOR STARS Karli Brantley aware. given 1x dose of iv hydrazine w/ some effect. will continue to monitor.
[2024-08-17] MEDS: APRESOLINE 10 MG IV (02:43)
[2024-08-17] MEDS: ANCEF 10 IV ×3 (05:26→22:54)
[2024-08-17] MEDS: PROGRAF 2 MG PO ×2 (07:49→20:01)
[2024-08-17] MEDS: MAG-TAB SR 84 MG PO (07:50)
[2024-08-17] MEDS: MYFORTIC DELAYED REL. 720 MG PO ×2 (07:50→20:01)
[2024-08-17] MEDS: ASPIR LOW (ENTERIC COATED) 81 MG PO (07:51)
[2024-08-17] MEDS: LIPITOR 40 MG PO (07:51)
[2024-08-17] MEDS: DELTASONE 5 MG PO (07:51)
[2024-08-17] MEDS: HEPARIN 5000 UNITS SC ×2 (07:51→20:01)
[2024-08-17] MEDS: COREG 6.25 MG PO ×2 (07:51→20:01)
[2024-08-17 08:16] LABS: Hematocrit 42.2 % (39.0-52.0); Hemoglobin 14.1 g/dL (13.0-18.0); Mean Corp Hgb Conc. 33.4 g/dL (33.0-37.0); Mean Corpuscular Volume 86.7 fL (80.0-94.0); Mean Platelet Volume 10.9 fL (7.4-10.4); Platelet Count 175 10^3/uL (130-400); Red Blood Cell Count 4.87 10^6/uL (4.70-6.10); White Blood Cell Count 9.7 10^3/uL (4.8-10.8)
[2024-08-17 08:52] LABS: Blood Urea Nitrogen 25 mg/dl (9-20); Calcium 9.3 mg/dl (8.4-10.2); Carbon Dioxide 24 mmol/L (22-30); Chloride 99 mmol/L (98-107); Estimated Creatinine Clearance 75 ml/min; Glucose 229 mg/dl (70-99); Potassium 4.5 mmol/L (3.5-5.1); Sodium 134 mmol/L (135-145); eGFR > 60.00
[2024-08-17 09:08] LABS: Glucose - Point of Care 228 mg/dl (70-99)
[2024-08-17] MEDS: NOVOLOG FLEXPEN-LOW RESISTANCE 2 UNITS SC ×3 (09:09→17:50)
[2024-08-17] MEDS: NOVOLOG FLEXPEN 5 UNITS SC ×2 (09:10→12:52)
--- NOTE | 2024-08-17 11:04 | W.PN.ID1 ---
Date of Service
Date of Service: August 17, 2024
Today's Communication
- At time of discharge, transition to cephalexin 500mg po q6H through 08/28/24.
Assessment / Plan
# Significant ruptured blisters right foot with large areas of exposed wound tissue
- MRI of right foot: no osteo, no abscess
-Arterial duplex/CAM result pending
- Wound Consult to evaluate today.
- Continue IV cefazolin 2gIV q8h (d3)
- At time of discharge, transition to cephalexin 500mg po q6H through 08/28/24.
# Renal transplant on tacrolimus, mycophenolate, prednisone
- IV belatacept started 06/2023 and discontinued last month due to possible source of peripheral edema/blisters.
# Conditions prior to admission
Diabetes with neuropathy and nephropathy
ESRD; previously on HD
Living related donor renal transplant 10/31/2022 at [place]
CKD3
HTN
Dyslipidemia
CAD
CVA
YASH on CPAP
Anxiety/depression
Macular degeneration
Narcolepsy
ADHD
Appendectomy
Right AV fistula
TURP
Knee arthroscopic surgery
Chief Complaint
-: Other (wounds)
Subjective / Review of Systems
No new complaints.
Vital Signs / Physical Exam
Vital Signs
Vital Signs
Temp Pulse Resp BP Pulse Ox
97.7 F 62 18 171/67 95
08/17/24 07:45 08/17/24 07:45 08/17/24 07:45 08/17/24 07:45 08/17/24 07:45
Physical Exam
Constitutional: No Acute Distress
Cardiovascular: Regular Rate and S1/S2
Pulmonary: Clear
Gastrointestinal: Soft, Non Tender and Non Distended
Extremities: Negative Edema
Wound: Other (Right foot edema resolved, dorsal erythema resolved, toe wounds sock drier, less red, lateral foot wound stable, plantar blister stable)
Objective Data
Lab Data
Lab Results
08/17/24 07:55
08/17/24 07:55
ESR 15 mm/hour (0-20) 08/14/24 10:49
Estimated Creat Clear 75 ml/min 08/17/24 07:55
Lactic Acid 1.2 mmol/L (0.7-2.0) 08/14/24 11:49
Total Bilirubin 0.2 mg/dl (0.2-1.3) 08/14/24 10:49
AST 21 U/L (17-59) 08/14/24 10:49
ALT 26 U/L (0-50) 08/14/24 10:49
Alkaline Phosphatase 107 U/L (38-126) 08/14/24 10:49
C-Reactive Protein 17.80 mg/L (0.0-10.00) H 08/14/24 10:49
Most recent labs reviewed.
Micro Results:
08/14/24 11:49 Blood Culture - Preliminary
Blood/Venous No Growth in 48 hours- Final report to follow
08/14/24 R Foot XRAY: Prominent soft tissue edema within the foot and great toe. No erosions or evidence for osteomyelitis, noting that radiographs are relatively insensitive for detection of this pathology.
Care Review
Plan reviewed with: Nurse (Harsha)
[2024-08-17 12:32] LABS: Glucose - Point of Care 212 mg/dl (70-99)
--- NOTE | 2024-08-17 14:36 | WOUNDNOTE ---
R MEDIAL FOOT/HEEL
--- NOTE | 2024-08-17 14:37 | WOUNDNOTE ---
WON RN note: Patient admitted with diabetic foot infections.
See H&P for complete history. Lives at home with .
PMH:CVA,HTN,IDDM,RF artfviky-C-[id number]-Sat, Renal transplant 2022, neuropathy, narcolepsy, anxiety, macular degeneration. Foot blisters, went to [facility]- sent to ER.
Wound Location and type/assessment: Patient admitted with: Edema redness and large blistering of both feet R>L, toes on R foot blisters sloughing off. Serosanguineous filled blisters with few open areas on sides and toes, extends all around foot. L
plantar medial foot extending to heel with same type of blistering but now flat and dry. Per reports, less redness and edema compared to admission. Reviewed Dr. Samano's note, NWB on R foot, no abscess or Osteomyelitis on MRI. Spoke to Dr. Fraire,
discussed benefit of topical antibiotic ointment for R foot open areas followed by non adherent dry dressing. + palpable pedal pulses both feet, skin warm and dry. Patient had CAM this morning, results pending. Patient reports he got new sneakers
recently. Suspect he had edema in feet while wearing new sneakers, causing blistering. (possible reaction to drug belatacept per Dr. Fraire, now discontinued), Minimal pain reported while doing wound care. Sacrum intact, turns self.
Appetite: Good.
Pressure redistribution devices in place: On [employer] bed, Pillows under calves, leg elevation.
Plan: L foot applied silicone foam. R foot will order mupirocin to start tomorrow. Today applied Xeroform to all open areas, alginate, Abd pad Shamir and secured loosely with eder wrap only to keep dressing on. Patient states he is maintaining non
weight bearing to R foot. Slipper sock provided for L foot. Encouraged patient to elevate legs when sitting in recliner chair. While in bed legs elevated with pillows.
Will confirm orders with hospitalist and updated nurse Mili. Updated care plan and will follow as needed.
Note to case management of equipment requested for discharge: VN for wound care.
Recommend follow up at wound care center upon discharge.
--- NOTE | 2024-08-17 15:35 | CM ---
CM reviewed chart
Pt with WOC recs on dc and plan for PO abx for ID note
PT/OT has signed off as pt not maintaining NWB throughout room
Bedside meeting with pt- he is requesting WOC be set up through [facility]
Referral made [facility]
PCP Ben Suarez- last visit a few weeks mervin
Discharge Disposition- home with VN (VN pending)
--- NOTE | 2024-08-17 16:15 | W.PN.HOSP.TC ---
Today's Communication/Plan
-
Echo, tele
compression therapy
add URSULA for supine high BP, may need midodrine
Vascular eval
continue IV Abx
Assessment / Plan
Assessment / Plan
MRI R foot w/wo: Moderate diffuse edema throughout the dorsal midfoot suggesting cellulitis. No loculated fluid collections. No MR evidence for osteomyelitis. Scattered mild degenerative changes.
RLE U/S: No evidence of DVT of the right lower extremity. Mild right calf edema.
Assessment:
Diabetic right foot infection/cellulitis associated with ruptured blisters right foot with large areas of exposed wound tissue
- Immunosuppressed as below
- MRI without OM
- cont Ancef as per ID; at dc, transition to cephalexin 500mg po q6H through 08/28/24
- BCx NGTD
- CAM/TBI: CAM moderately decreased measuring 0.65. TBI 0.65. No evidence for inflow disease. 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 Monophasic continuous pedal waveforms.
- Vascular consult
- Wound care following
CKD3b: s/p renal transplant in 10/2022, cont Mycophenolate, prednisone, Prograf
Orthostatic Hypotension: compression stockings, Midodrine PRN if still low
Essential Hypertension: cont Coreg, add lose dose lisinopril for sedentary high BP
Hyperlipidemia: cont statin
DM2: a1c 7.4%, cont Lantus/premeal NovoLog, SSI/accu-checks
Anxiety, Insomnia: cont clonazepam
Obesity due to excess calories
FULL/Heparin
Anticipated Discharge: > 48 hours
Subjective/Interval History
-
Date of Service: August 17, 2024
RN reports + orthostatics with dizziness
patient denies any complaints in bed
Objective Data
-
Labs:
Laboratory Results
08/17/24
07:55
WBC 9.7
Hgb 14.1
Hct 42.2
Plt Count 175
Sodium 134 L
Potassium 4.5
Chloride 99
Carbon Dioxide 24
BUN 25 H
Creatinine 1.1
Glucose 229 H
Calcium 9.3
Vital Signs:
Vital Signs
Temp Pulse Resp BP Pulse Ox
97.7 F 62 18 171/67 95
08/17/24 07:45 08/17/24 07:45 08/17/24 07:45 08/17/24 07:45 08/17/24 07:45
I&O
08/16/24 08/17/24 08/18/24
06:59 06:59 06:59
Intake Total 880 / 880 960 / 960
Output Total 275 / 275
Balance 880 / 880 685 / 685
Physical Exam
-
General: No Apparent Distress
HEENT: Normocephalic and Atraumatic
Respiratory: Negative Wheezes
Cardiac: Regular Rhythm and S1/S2
GI: Soft and Nontender
Skin: Other (improving R foot/toes cellulitis)
Neuro: AO x 3
Hematologic / Lymphatic: No Lymphadenopathy
Psych: Calm
Data Reviewed
-
Total Time Spent with Patient (in minutes): 45
Labs: Labs Reviewed by me
[2024-08-17] MEDS: ZESTRIL 5 MG PO (17:13)
[2024-08-17 17:28] LABS: Glucose - Point of Care 208 mg/dl (70-99)
[2024-08-17] MEDS: NOVOLOG FLEXPEN 10 UNITS SC (17:52)
[2024-08-17] MEDS: LANTUS 0.15 UNITS SC (22:54)
[2024-08-17] MEDS: NSS 1000 IV (22:55)
[2024-08-17 23:02] LABS: Glucose - Point of Care 190 mg/dl (70-99)
[2024-08-18] VITALS (12 sets, daily range): BP systolic 113–201; BP diastolic 58–88; PULSE 63–66
[2024-08-18] MEDS: ANCEF 10 IV ×3 (05:40→21:32)
[2024-08-18 05:55] LABS: Glucose - Point of Care 205 mg/dl (70-99)
[2024-08-18] MEDS: NOVOLOG FLEXPEN SC ×2 (07:56→11:05)
[2024-08-18] MEDS: MAG-TAB SR 84 MG PO (07:56)
[2024-08-18] MEDS: DELTASONE 5 MG PO (07:57)
[2024-08-18] MEDS: PROGRAF 2 MG PO ×2 (07:57→19:20)
[2024-08-18] MEDS: COREG 6.25 MG PO ×2 (07:57→19:19)
[2024-08-18] MEDS: ZESTRIL 5 MG PO (07:57)
[2024-08-18] MEDS: HEPARIN 5000 UNITS SC ×2 (07:58→19:19)
[2024-08-18] MEDS: ASPIR LOW (ENTERIC COATED) 81 MG PO (07:58)
[2024-08-18] MEDS: LIPITOR 40 MG PO (07:58)
[2024-08-18] MEDS: BACTROBAN 2% OINTMENT 1 APPLIC TOPICAL (07:58)
[2024-08-18] MEDS: MYFORTIC DELAYED REL. 720 MG PO ×2 (07:59→21:31)
[2024-08-18] MEDS: NOVOLOG FLEXPEN-LOW RESISTANCE 2 UNITS SC (08:07)
[2024-08-18] MEDS: NOVOLOG FLEXPEN-LOW RESISTANCE SC ×2 (08:08→15:47)
--- NOTE | 2024-08-18 08:09 | CON.VAS ---
Addendum entered and electronically signed by Gagandeep Davenport III, MD 08/18/24 10:38:
This patient was seen and examined with ANDREA Donnelly. I agree with the history and physical exam as well as the assessment and plan. I have the following additions:
74-year-old male
Kidney transplant
Diabetes
Severe blistering right foot wound and associated infection as seen in the images below.
Nonpalpable pedal pulses in the right foot
Abnormal noninvasive lower extremity arterial studies that I personally reviewed
Recommending right lower extremity arteriogram with possible endovascular intervention. The technical aspects of this procedure were discussed with him in detail. The benefits and rationale for this approach were discussed with him in detail.
Operative risks were discussed with him in detail including but not limited to bleeding, arterial access site injury, infection, contrast nephropathy/transplant kidney failure, distal embolization and the inability to successfully complete
endovascular intervention which may require additional procedures. He expressed a clear understanding of our conversation and agrees to proceed with surgery as detailed above.
Signed:
Gagandeep Davenport III, MD
[facility]
[phone] (uovh)
Original Note:
Consultation
Consultation Request
Performing Provider: Isasc
Reason for Consultation: PAD evaluation
Medical History
-
Chief Complaint: Nonhealing right foot wound
History of Present Illness:
74-year-old male with past medical history end-stage renal disease previously on HD now status post single kidney transplant 2 years ago, DM type II, hypertension, sleep apnea, urinary retention and ADHD admitted on 08/14/2024 with nonhealing right
foot wound. Patient was sent over to the ER from the wound care center. Patient had presented on 08/05/2023 with right lower extremity swelling and associated blisters to the right foot and was sent home on Bactrim. The wound care center felt his
foot had worsened on follow-up which led to his ER visit and admission. Patient started on IV antibiotics in the ER. Patient is being followed by infectious disease and podiatry.
DVT study negative.
Arterial ultrasound studies:
Right leg: CAM moderately decreased measuring 0.65. TBI 0.65. No evidence for inflow disease. 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 Monophasic continuous pedal waveforms.
Left leg: CAM within normal limits measuring 1.10. TBI 1.08. Multiphasic flow throughout the leg with no focal or flow-limiting stenosis appreciated.
Vascular consult for PAD evaluation/nonhealing right foot wounds.
Patient seen at bedside this a.m. with Dr. Davenport. Patient states he feels his foot is looking a little bit better. Images attached below. Patient denies injury or trauma. Patient states the wound began as a blister on his great toe about a week
or so ago. Patient has no pain to the sites.
Right foot
Past Medical History
Past Medical History: Renal Failure (Kidney transplant 2 years ago off HD at this time) and Other (Peripheral artery disease, Type 2 diabetes, Urinary retention, Hypertension, Obstructive sleep apnea, ADHD, Erectile dysfunction, Anxiety, Diabetic
neuropathy, Retinopathy, orthostatic hypotension, UTI)
Past Surgical History: Appendectomy and Other (Single kidney transplant 2 years ago, right upper extremity forearm AV fistula)
Social History
Tobacco: Non-Smoker
Alcohol: None
Personal:
Living: With Family
Family History
Family History: Reviewed & Not Pertinent
Allergies / Home Medications
Allergy/AdvReac Type Severity Reaction Status Date / Time
No Known Allergies Allergy Verified 08/14/24 09:32
�Medication �Instructions �Recorded �Confirmed �Type
insulin lispro 100 unit/mL 10 units SC AC Diabetes 12/14/21 08/14/24 History
subcutaneous pen (Humalog KwikPen
(U-100) Insulin)
clonazepam 1 mg tablet 1 mg PO BIDPRN PRN anxiety 09/25/22 08/14/24 History
carvedilol 6.25 mg tablet 6.25 mg PO BID Heart 07/23/23 08/14/24 History
Disease/Condition
insulin glargine 100 unit/mL (3 25 unit SC HS diabetes 07/23/23 08/14/24 History
mL) subcutaneous pen (Lantus
Solostar U-100 Insulin)
prednisone 5 mg tablet 5 mg PO DAILY Anti-Inflammatory 07/23/23 08/14/24 History
tacrolimus 1 mg capsule, 2 mg PO Q12H renal transplant 07/23/23 08/14/24 History
immediate-release (Prograf)
vibegron 75 mg tablet 75 mg PO DAILY Urinary Issue 07/23/23 08/14/24 History
aspirin 81 mg tablet,delayed 81 mg PO DAILY Blood Clot 08/14/24 08/14/24 History
release Prevention/Tx
atorvastatin 40 mg tablet (Lipitor) 40 mg PO DAILY High Cholesterol 08/14/24 08/14/24 History
magnesium oxide 400 mg PO DAILY Supplement 08/14/24 08/14/24 History
mycophenolate sodium 180 mg 720 mg PO BID IMMUNOSUPPRESSANT 08/14/24 08/14/24 History
tablet,delayed release
omega-3 acid ethyl esters 1 gram 2 cap PO BID Supplement 08/14/24 08/14/24 History
capsule (Lovaza)
sulfamethoxazole 800 1 tab PO BID for 10 days/INFECTION 08/14/24 08/14/24 History
mg-trimethoprim 160 mg tablet
(Bactrim DS)
Review of Systems
-
History Source: Patient
All other systems: Negative unless noted
Constitutional: Reports No Symptoms
EENT: Reports No Symptoms
Respiratory: Reports No Symptoms
Cardiac: Reports No Symptoms
Vascular: Denies Leg Pain / Claudication
Abdomen/GI: Reports No Symptoms
: Reports No Symptoms
Musculoskeletal: Reports Edema
Skin: Reports Other (Right foot wounds)
Neurological: Reports No Symptoms
Physical Exam
Vital Signs
Temp Pulse Resp BP Pulse Ox
97.8 F 96 16 134/88 97
08/18/24 07:55 08/18/24 07:55 08/18/24 07:55 08/18/24 07:55 08/18/24 07:55
Physical Exam
General: No Apparent Distress
HEENT: Normocephalic and Atraumatic
Respiratory: Non Labored Respirations
Cardiac: Negative JVD
GI: Soft and Non Tender
Musculoskeletal: No Clubbing and Edema (+2 bilateral lower extremities)
Skin: Other (See images above)
Neuro: Awake, Alert and Oriented
Psych: Calm
Assessment / Plan
-
74-year-old male with nonhealing right foot wounds
Diminished right CAM and TBI
Plan for
-Right lower extremity arteriogram today, n.p.o.
-Hydration, patient has history of kidney transplant
-Nephrology to see
-Continue local wound care
Data Reviewed
-
Ultrasound: Discussed with Patient
Labs: Labs Reviewed by me
[2024-08-18 08:23] LABS: Hematocrit 42.6 % (39.0-52.0); Hemoglobin 14.2 g/dL (13.0-18.0); Mean Corp Hgb Conc. 33.3 g/dL (33.0-37.0); Mean Corpuscular Hgb 28.5 pg (27.0-31.0); Mean Corpuscular Volume 85.4 fL (80.0-94.0); Platelet Count 179 10^3/uL (130-400); Red Blood Cell Count 4.99 10^6/uL (4.70-6.10); Red Cell Dist. Width 13.1 % (11.5-14.5); White Blood Cell Count 9.7 10^3/uL (4.8-10.8)
[2024-08-18 08:45] LABS: Blood Urea Nitrogen 23 mg/dl (9-20); Calcium 8.8 mg/dl (8.4-10.2); Carbon Dioxide 23 mmol/L (22-30); Chloride 103 mmol/L (98-107); Estimated Creatinine Clearance 83 ml/min; Glucose 194 mg/dl (70-99); Potassium 4.9 mmol/L (3.5-5.1); Sodium 137 mmol/L (135-145); eGFR > 60.00
--- NOTE | 2024-08-18 09:10 | VNURNOTE ---
Home Health Liaison met with patient at bedside to discuss [facility] nurse/therapy, visits, schedule and homebound status. Patient is agreeable and understands that visits at home will be 2-3 x per week to assess and teach medical management and wound
care. Patient is willing to learn wound care. [facility] brochure provided with contact information. Patient is aware that [facility] will contact them for start of care in 1-2 days after discharge from . [facility] referral completed in [facility].
--- NOTE | 2024-08-18 09:14 | PN.CDI ---
CDI
- -
CDI:
Physician Documentation Request
Admit Date: 08/14/24 13:52
Dear Doctor Yosef,
Please review the following and provide your response in the progress notes.
Clinical Indicators:
- Patient admit for diabetic right foot cellulitis
- 08/17 PN 'CKD3b: s/p renal transplant in 10/2022'
Laboratory Tests
08/14/24 08/15/24 08/16/24
10:49 07:45 07:05
Creatinine 1.6 H 1.4 H 1.3
eGFR 45.50 53.40 58.37
08/17/24 08/18/24
07:55 07:40
Creatinine 1.1 1.0
eGFR > 60.00 > 60.00
Please clarify which of the following accurately represents the patient's renal status:
SHERRY
SHERRY on CKD 2
Other (please specify)
Criteria for SHERRY*
1 Increase in serum creatinine by > or = to 0.3 mg/dL (> or = to 26.5 micromol/L) within 48 hours, OR
2 Increase in serum creatinine to > or = to 1.5 times baseline, which is known or presumed to have occurred within 7 days, OR
3 Urine volume < 0.5 nL/kg/hour for six hours
Stages of Chronic Kidney Disease*
Level Description GFR
G1 Normal or High >90
G2 Mildly decreased 60-89
G3a Mildly to moderately decreased 45-59
G3b Moderately to severely decreased 30-44
G4 Severely decreased 15-29
G5 Kidney failure <15
Use of terms such as suspected, likely, concern for, or probable (associated with a specific diagnosis that is being evaluated, monitored, or treated as if it exists) are acceptable and can be coded in the inpatient setting, when documented at the
time of discharge.
Thank you,
Kaleigh Oneill RN
CDI Specialist
Please use your independent medical judgment in providing your response.
*Source: Kidney Disease: Improving Global Outcomes (KDIGO) 2012
--- NOTE | 2024-08-18 09:36 | W.PN.HOSP.TC ---
Today's Communication/Plan
-
continue IV Abx
continue IVF for contrast prophylaxis; Nephrology consulted
monitor BPs
Vascular consulted for Angiogram
Assessment / Plan
Assessment / Plan
MRI R foot w/wo: Moderate diffuse edema throughout the dorsal midfoot suggesting cellulitis. No loculated fluid collections. No MR evidence for osteomyelitis. Scattered mild degenerative changes.
RLE U/S: No evidence of DVT of the right lower extremity. Mild right calf edema.
Assessment:
Diabetic right foot infection/cellulitis associated with ruptured blisters right foot with large areas of exposed wound tissue
- Immunosuppressed as below
- MRI without OM
- cont Ancef as per ID; at dc, transition to cephalexin 500mg po q6H through 08/28/24
- BCx NGTD
- CAM/TBI: CAM moderately decreased measuring 0.65. TBI 0.65. No evidence for inflow disease. 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 Monophasic continuous pedal waveforms.
- Vascular consulted; for Angiogram today
- Wound care following
SHERRY on CKD 2: s/p renal transplant in 10/2022, cont Mycophenolate, prednisone, Prograf. IVF for contrast prophylaxis. Nephrology consulted
Orthostatic Hypotension: compression stockings, Midodrine PRN if still low
Essential Hypertension: cont Coreg, add lose dose lisinopril for sedentary high BP
Hyperlipidemia: cont statin
DM2: a1c 7.4%, cont Lantus/premeal NovoLog, SSI/accu-checks
Anxiety, Insomnia: cont clonazepam
Obesity due to excess calories
FULL/Heparin
Anticipated Discharge: > 48 hours
Subjective/Interval History
-
Date of Service: August 18, 2024
no new complaints
agreeable to A-Gram today
Objective Data
-
Labs:
Laboratory Results
08/18/24
07:40
WBC 9.7
Hgb 14.2
Hct 42.6
Plt Count 179
Sodium 137
Potassium 4.9
Chloride 103
Carbon Dioxide 23
BUN 23 H
Creatinine 1.0
Glucose 194 H
Calcium 8.8
Vital Signs:
Vital Signs
Temp Pulse Resp BP Pulse Ox
97.8 F 96 16 134/88 97
08/18/24 07:55 08/18/24 07:55 08/18/24 07:55 08/18/24 07:55 08/18/24 07:55
I&O
08/17/24 08/18/24 08/19/24
06:59 06:59 06:59
Intake Total 960 / 960 1840 / 1840
Output Total 275 / 275
Balance 685 / 685 1840 / 1840
Physical Exam
-
General: No Apparent Distress
HEENT: Normocephalic and Atraumatic
Respiratory: Negative Wheezes
Cardiac: Regular Rhythm and S1/S2
GI: Soft
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
Neuro: AO x 3
Psych: Calm
Data Reviewed
-
Total Time Spent with Patient (in minutes): 44
Ultrasound: Report Reviewed by me
Labs: Labs Reviewed by me
--- NOTE | 2024-08-18 10:38 | W.SUR.PREOP ---
Pre-Operative Surgical Note
-
I have examined this patient prior to the performance of the scheduled procedure.
The patient's condition is unchanged from the time of the current History and
Physical and the patient is able to undergo the scheduled procedure.
[2024-08-18] MEDS: NSS 1000 IV (11:03)
--- NOTE | 2024-08-18 11:15 | W.CON.NEPH ---
Consultation
-
Date/Time Consultation Requested: 08/18/24 0755
Date/Time Consultation Performed: 08/18/24 0915
Requesting Provider: Yosef Milligan
Performing Provider: Leola Salgado
Reason for Consultation: HTN, h/o K Txp
Medical History
-
Chief Complaint: Foot wounds
History of Present Illness:
74-year-old male history of ESRD from diabetic nephropathy s/p renal transplant (donor daughter) in 10/2022 at [place] on [place], MMF, prednisone and monthly Belatacept for ACR in biopsy in 04/2023 last dose in Dec, labile BPs with significant
orthostatic hypotension with autonomic dysfucntion related to diabetes, hyperlipidemia, insulin-dependent diabetes presents from wound care center for concerns for diabetic foot infection on 08/14. 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
saw in ER On 08/05 and was given Bactrim, no DVT noted with edema. SInce no improvement seen he was asked to come to ER by wound care. He reports no fever or chills. Has mild pain in legs. Patient denied chest pain, short of breath or dizzy,
syncope. Patient denied any abdominal pain, nausea, vomiting or diarrhea. Patient denied dysuria hematuria.
His cr baseline was at 1.3-1.5, since admit cr improved to 1 from 1.6. He also has significantly elevated BPs hence nephrology consulted, Lisinopril was started by primary. He is plan to have angiogram for LEs wounds today. He started on IVF since
08/17.
Past Medical History
1. ESRD due to diabetes. s/p LRTxp 10/2022 at [facility]
2. Diabetes mellitus, type 2 with complications
3. Orthostasis.
4. Right AV fistula.
5. Autonomic insufficiency
6. ADHD.
7. Sleep apnea.
8. Hyperlipidemia.
9. BPH.
10. Elevated PSA.
11. Secondary hyperparathyroidism.
Past Surgical History: Other (Appendectomy Laser treatment of both eyes Right upper extremity speech slow reaction Right upper extremity fistulogram Right upper extremity fistula revision, kidney transplant, TURP)
Social History
Tobacco: Non-Smoker
Alcohol: None
Living: With Family
Family History
Family History: Not Pertinent
Allergies / Home Medications
Allergy/AdvReac Type Severity Reaction Status Date / Time
No Known Allergies Allergy Verified 08/14/24 09:32
�Medication �Instructions �Recorded �Confirmed �Type
insulin lispro 100 unit/mL 10 units SC AC Diabetes 12/14/21 08/14/24 History
subcutaneous pen (Humalog KwikPen
(U-100) Insulin)
clonazepam 1 mg tablet 1 mg PO BIDPRN PRN anxiety 09/25/22 08/14/24 History
carvedilol 6.25 mg tablet 6.25 mg PO BID Heart 07/23/23 08/14/24 History
Disease/Condition
insulin glargine 100 unit/mL (3 25 unit SC HS diabetes 07/23/23 08/14/24 History
mL) subcutaneous pen (Lantus
Solostar U-100 Insulin)
prednisone 5 mg tablet 5 mg PO DAILY Anti-Inflammatory 07/23/23 08/14/24 History
tacrolimus 1 mg capsule, 2 mg PO Q12H renal transplant 07/23/23 08/14/24 History
immediate-release (Prograf)
vibegron 75 mg tablet 75 mg PO DAILY Urinary Issue 07/23/23 08/14/24 History
aspirin 81 mg tablet,delayed 81 mg PO DAILY Blood Clot 08/14/24 08/14/24 History
release Prevention/Tx
atorvastatin 40 mg tablet (Lipitor) 40 mg PO DAILY High Cholesterol 08/14/24 08/14/24 History
magnesium oxide 400 mg PO DAILY Supplement 08/14/24 08/14/24 History
mycophenolate sodium 180 mg 720 mg PO BID IMMUNOSUPPRESSANT 08/14/24 08/14/24 History
tablet,delayed release
omega-3 acid ethyl esters 1 gram 2 cap PO BID Supplement 08/14/24 08/14/24 History
capsule (Lovaza)
sulfamethoxazole 800 1 tab PO BID for 10 days/INFECTION 08/14/24 08/14/24 History
mg-trimethoprim 160 mg tablet
(Bactrim DS)
Review of Systems
-
all complete 12 point ROS have been inquired and found negative other than stated in HPI
Physical Exam
Vital Signs
Vital Signs
Temp Pulse Resp BP Pulse Ox
97.8 F 96 16 134/88 97
08/18/24 07:55 08/18/24 07:55 08/18/24 07:55 08/18/24 07:55 08/18/24 07:55
Lab Results
WBC 9.7 10^3/uL (4.8-10.8) 08/18/24 07:40
RBC 4.99 10^6/uL (4.70-6.10) 08/18/24 07:40
Hgb 14.2 g/dL (13.0-18.0) 08/18/24 07:40
Hct 42.6 % (39.0-52.0) 08/18/24 07:40
Plt Count 179 10^3/uL (130-400) 08/18/24 07:40
Sodium 137 mmol/L (135-145) 08/18/24 07:40
Potassium 4.9 mmol/L (3.5-5.1) 08/18/24 07:40
Chloride 103 mmol/L (98-107) 08/18/24 07:40
Carbon Dioxide 23 mmol/L (22-30) 08/18/24 07:40
BUN 23 mg/dl (9-20) H 08/18/24 07:40
Creatinine 1.0 mg/dL (0.7-1.3) 08/18/24 07:40
eGFR > 60.00 08/18/24 07:40
Glucose 194 mg/dl (70-99) H 08/18/24 07:40
Calcium 8.8 mg/dl (8.4-10.2) 08/18/24 07:40
Albumin 4.6 g/dl (3.5-5.0) 08/14/24 10:49
Physical Exam
General: Awake, Alert, Oriented, AOx3, No Distress and Nontoxic
HEENT: EOMI, Anicteric and Facial Symmetry
Respiratory: Clear, Normal Excursion and Nonlabored Respirations
Cardiac: S1/S2 and Regular Rate/Rhythm
Breast: Deferred by me
Abdomen: Soft, Nontender and Nondistended
Musculoskeletal: No Cyanosis, No Edema and Other (right ankle and foot in dressing)
Skin: No Rash
Neuro: Nonfocal/Grossly Intact
Psych: Mood/afflect pleasant, Insight/judgement good and Appropriate
Data Reviewed
-
Radiology: Report Reviewed by me and Discussed with Patient
Labs: Labs Reviewed by me, Discussed with Physician and Discussed with Patient
Assessment/Plan
-
Assessment:L
Diabetic right foot infection/cellulitis
ESRD-D nephropathy s/p LR KTP(daughter) 10/2022 at [facility]
CKD3 baseline 1.3-1.5
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
h/o syncope from severe orthostatic hypotension
-HTN
-CAD
-DM2-with microvascular complications
Anxiety, Insomnia
BPH
Plan:
stable renal function since admit infact cr is better than baseline now
known labile BPs with significant orthostatic hypotension
cotn IS-Tac, MMF, prednisone-check tac level
permissive HTN upto 160s is likely ok
reviewed [facility] records on his phone, was on NIfedipine 60mg daily -likely resume
cotn BB coreg , stop ACEI
cont TEDS
may need to use midodrine if needed
cont hydration pre and post contrast-for angiogram today
d/w pt and nursing
d/w primary
--- NOTE | 2024-08-18 11:28 | CM ---
Patient seen bedside.
IMM completed.
Plan: home with [facility] when stable.
--- NOTE | 2024-08-18 11:33 | W.PN.ID1 ---
Date of Service
Date of Service: August 18, 2024
Today's Communication
Continue cefazolin
Assessment / Plan
# Significant ruptured blisters right foot with large areas of exposed wound tissue
# PAD
- MRI of right foot: no osteo, no abscess
-Arterial duplex/CAM: Right SFA stenosis
- For CT angiogram today per Vascular
- Continue IV cefazolin 2gIV q8h (d4)
- Appreciate Wound Care recs.
# Renal transplant on tacrolimus, mycophenolate, prednisone
- IV belatacept started 06/2023 and discontinued last month due to possible source of peripheral edema/blisters.
# Conditions prior to admission
Diabetes with neuropathy and nephropathy
ESRD; previously on HD
Living related donor renal transplant 10/31/2022 at [facility]
CKD3
HTN
Dyslipidemia
CAD
CVA
YASH on CPAP
Anxiety/depression
Macular degeneration
Narcolepsy
ADHD
Appendectomy
Right AV fistula
TURP
Knee arthroscopic surgery
Chief Complaint
-: Other (wounds)
Subjective / Review of Systems
No new complaints.
Vital Signs / Physical Exam
Vital Signs
Vital Signs
Temp Pulse Resp BP Pulse Ox
97.5 F 61 16 201/79 95
08/18/24 11:29 08/18/24 11:29 08/18/24 11:29 08/18/24 11:29 08/18/24 11:29
Physical Exam
Constitutional: No Acute Distress and Comfortable
Pulmonary: Clear
Extremities: Edema (B foot resolved)
Wound: Other (Right lateral foot wound with medina slough, medial foot distal wound unhealthy light brown slough, toes with wounds/dusky)
Objective Data
Lab Data
Lab Results
08/18/24 07:40
08/18/24 07:40
ESR 15 mm/hour (0-20) 08/14/24 10:49
Estimated Creat Clear 83 ml/min 08/18/24 07:40
Lactic Acid 1.2 mmol/L (0.7-2.0) 08/14/24 11:49
Total Bilirubin 0.2 mg/dl (0.2-1.3) 08/14/24 10:49
AST 21 U/L (17-59) 08/14/24 10:49
ALT 26 U/L (0-50) 08/14/24 10:49
Alkaline Phosphatase 107 U/L (38-126) 08/14/24 10:49
C-Reactive Protein 17.80 mg/L (0.0-10.00) H 08/14/24 10:49
Most recent labs reviewed.
Micro Results:
08/14/24 11:49 Blood Culture - Preliminary
Blood/Venous No Growth in 72 hours- Final report to follow
08/14/24 R Foot XRAY: Prominent soft tissue edema within the foot and great toe. No erosions or evidence for osteomyelitis, noting that radiographs are relatively insensitive for detection of this pathology.
Care Review
Plan reviewed with: Physician (Dr. Villasenor)
--- NOTE | 2024-08-18 12:48 | PTCARENOTE ---
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 Patient arrived around 1215. A set of vital signs were obtained. His BP was 190/71, pulse-63, sp02- 96, RR 16 and blood sugar 234. Groins were prepped and
shaved for procedure. Patient was consented by DR Davenport and interviewed by Dr. Butler. Patient was then transferred to vascular lab for procedure at 1249.
[2024-08-18 12:57] LABS: Glucose - Point of Care 232 mg/dl (70-99)
--- NOTE | 2024-08-18 13:50 | W.IMMPOSTOP ---
Surgical Immed Post Op Note
-
Primary Surgeon: Issac
Assisting Surgeon: Shandra
Pre-op Diagnosis: Chronic limb threatening ischemia
Post-op Diagnosis: Chronic limb threatening ischemia
Procedure Performed: RLE angiogram
Anesthesia Type: Sedation/local
Specimen / Cultures: None
Estimated Blood Loss: 5 cc
Complications: None
Operative Findings: RLE angiogram with balloon angioplastyof R SFA
[2024-08-18 14:25] LABS: Glucose - Point of Care 251 mg/dl (70-99)
[2024-08-18] MEDS: NOVOLOG vial 4 UNITS SC (14:40)
[2024-08-18] MEDS: TYLENOL 650 MG PO (14:45)
[2024-08-18] MEDS: PLAVIX 300 MG PO (14:48)
[2024-08-18 17:09] LABS: Glucose - Point of Care 178 mg/dl (70-99)
--- NOTE | 2024-08-18 17:13 | OR.RPT ---
Operative Report
Operative Report
Date of Operation: 08/18/2024
Pre Op Diagnosis:
1. Limb threatening ischemia manifested by diffuse right blistering foot infection and toe wounds
2. Diabetes with arterial occlusive disease
3. Kidney transplant
Post Op Diagnosis:
1. Limb threatening ischemia manifested by diffuse right blistering foot infection and toe wounds
2. Diabetes with arterial occlusive disease
3. Kidney transplant
Procedure:
1.) Drug-coated balloon angioplasty to right above-knee popliteal artery (6 mm x 40 mm Lutonix DCB)
2.) Diagnostic aortobiiliac arteriogram
3.) Diagnostic right lower extremity arteriogram
4.) Ultrasound-guided percutaneous access to the left common femoral artery
Surgeon: Gagandeep Davenport III, MD
Internal Combustion Engine Assembler: Colin Devi MD PGY1
Anesthesia: Sedation with local
Fluoroscopy:
15.5 min
164 mGy
53.25 Gy.cm2
Complications: None
Estimated Blood Loss: Less than 10 cc
History and Indications for Procedure: 74-year-old male with diabetes and prior kidney transplant who presents with severe right foot infection and toe wounds. Preoperative lower extremity arterial studies were abnormal. He was taken to the
operating room for arteriogram and possible endovascular intervention.
Procedure in Detail: Evan Mendez was correctly identified and placed supine on the operating table. After adequate induction of anesthesia the bilateral groins were prepped and draped in the usual sterile fashion. A timeout was performed with the
nursing and anesthesia staff confirming the patient's identity as well as the nature and laterality of the procedure.
The left common femoral artery was identified under ultrasound guidance. The artery was patent. The superior and inferior aspects of the femoral head were identified with radiographic guidance and marked at the skin level. The proposed puncture site
was infiltrated with local anesthesia. Under ultrasound guidance we accessed the left common femoral artery with a micropuncture needle and upsized to a 5 Fr sheath over a Night Node Softwareson wire. The wire and a ShepherSaiguo hook flush catheter were advanced into
the distal abdominal aorta and a diagnostic aorto-biiliac arteriogram was performed with 1/4 strength contrast:
AORTO-ILIAC ARTERIOGRAM:
Aorta: Patent with no stenosis identified
Right common iliac artery: Patent with no stenosis identified
Right external iliac artery: Patent with no stenosis identified. Kidney transplant identified in the right iliac fossa. Patent right transplant renal artery.
Left common iliac artery: Patent with no stenosis identified
Left external iliac artery: Patent with no stenosis identified
Under roadmap guidance using a Glidewire and the DepoMed hook catheter we selected the right common iliac artery and then the external iliac artery. A catheter was tracked up and over the aortic bifurcation and placed in the distal external iliac
artery. A diagnostic right lower extremity arteriogram was then performed with 1/4 strength contrast which demonstrated the following:
RIGHT LOWER EXTREMITY:
Common femoral artery: Patent with no stenosis identified
Profunda femoral artery: Patent with no stenosis identified
Superficial femoral artery: Patent. Areas of mild scattered stenosis. No high-grade flow-limiting stenoses identified.
Popliteal artery: Focal high-grade stenosis and occlusion involving the above-knee popliteal artery. Distal reconstitution behind the knee. Patent below the knee with no stenosis identified
Anterior tibial artery: Patent with no significant stenosis identified
Tibioperoneal trunk: Patent with no significant stenosis identified
Peroneal artery: Patent with no significant stenosis identified
Posterior tibial artery: Patent with no significant stenosis identified
ENDOVASCULAR INTERVENTION: Systemic heparin was administered. Exchanged out for a 6 Fr 45 cm sheath over a Storq wire. Selected the superficial femoral artery under roadmap guidance with Quickcross catheter and glidewire. The above-knee popliteal
artery stenosis/occlusion was crossed with this approach. The wire and catheter were advanced into the more distal popliteal artery and subtraction angio confirmed proper position in the true lumen. Exchanged out for a Storq wire. A 6 mm x 40 mm
drug-coated angioplasty balloon was placed across the stenosis under roadmap guidance. The balloon was inflated to nominal pressure, held in place for 3 minutes and then deflated and removed over the wire. Subsequent arteriogram demonstrated an
excellent technical result. There was brisk flow through the superficial femoral artery and popliteal artery with no significant residual stenosis identified. No dissection was identified. Brisk three-vessel tibial artery runoff was identified
distally. The anterior tibial artery continued across the ankle to form the dorsalis pedis artery. The posterior tibial artery continued across the ankle informed plantar branches.
Satisfied with this result we concluded the procedure. The sheath tip was pulled back into the left external iliac artery. Protamine was administered. The sheath was pulled and direct manual pressure was held over the puncture site. Hemostasis
was achieved. A sterile dressing was applied.
The patient tolerated the procedure well and was taken to the recovery area in stable condition. At the conclusion of the case the patient had palpable DP and PT pulses in the right foot.
Attestation: I was present and responsible for the entire procedure.
Signed:
Gagandeep Davenport III, MD
[facility]
[phone] (gcvl)
[2024-08-18] MEDS: PROCARDIA XL (EXTENDED RELEASE) 60 MG PO (17:19)
[2024-08-18] MEDS: NOVOLOG FLEXPEN-LOW RESISTANCE 1 UNITS SC (18:10)
[2024-08-18] MEDS: NOVOLOG FLEXPEN 10 UNITS SC (18:10)
[2024-08-18] MEDS: DILAUDID 0.5 MG IV (18:14)
[2024-08-18] MEDS: LANTUS 0.15 UNITS SC (21:32)
[2024-08-18 21:38] LABS: Glucose - Point of Care 154 mg/dl (70-99)
[2024-08-19] MEDS: DILAUDID 0.5 MG IV ×2 (02:19→08:48)
[2024-08-19 03:00] VITALS: BP 124/55
[2024-08-19] MEDS: ANCEF 10 IV (05:10)
[2024-08-19] MEDS: NSS 1000 IV (05:10)
[2024-08-19] MEDS: PROCARDIA XL (EXTENDED RELEASE) 60 MG PO (07:45)
[2024-08-19] MEDS: PROGRAF 2 MG PO ×2 (07:45→21:42)
[2024-08-19] MEDS: ASPIR LOW (ENTERIC COATED) 81 MG PO (07:45)
[2024-08-19] MEDS: COREG 6.25 MG PO ×2 (07:45→21:43)
[2024-08-19] MEDS: MAG-TAB SR 84 MG PO (07:45)
[2024-08-19] MEDS: LIPITOR 40 MG PO (07:45)
[2024-08-19] MEDS: PLAVIX 75 MG PO (07:45)
[2024-08-19] MEDS: DELTASONE 5 MG PO (07:45)
[2024-08-19 08:19] VITALS: BP 125/59
[2024-08-19 08:33] LABS: Hematocrit 40.9 % (39.0-52.0); Hemoglobin 13.8 g/dL (13.0-18.0); Mean Corp Hgb Conc. 33.7 g/dL (33.0-37.0); Mean Corpuscular Hgb 29.2 pg (27.0-31.0); Mean Corpuscular Volume 86.5 fL (80.0-94.0); Platelet Count 175 10^3/uL (130-400); Red Blood Cell Count 4.73 10^6/uL (4.70-6.10); Red Cell Dist. Width 12.9 % (11.5-14.5); White Blood Cell Count 12.4 10^3/uL (4.8-10.8)
[2024-08-19] MEDS: MYFORTIC DELAYED REL. 720 MG PO ×2 (08:49→21:42)
[2024-08-19] MEDS: NOVOLOG FLEXPEN 10 UNITS SC ×3 (08:50→18:01)
[2024-08-19] MEDS: NOVOLOG FLEXPEN-LOW RESISTANCE 1 UNITS SC (08:50)
[2024-08-19] MEDS: HEPARIN 5000 UNITS SC ×2 (08:51→21:41)
[2024-08-19] MEDS: BACTROBAN 2% OINTMENT 1 APPLIC TOPICAL (08:51)
[2024-08-19 08:54] LABS: Glucose - Point of Care 189 mg/dl (70-99)
[2024-08-19 09:10] LABS: Blood Urea Nitrogen 24 mg/dl (9-20); Calcium 9.1 mg/dl (8.4-10.2); Carbon Dioxide 23 mmol/L (22-30); Chloride 103 mmol/L (98-107); Estimated Creatinine Clearance 64 ml/min; Glucose 196 mg/dl (70-99); Potassium 4.6 mmol/L (3.5-5.1); Sodium 137 mmol/L (135-145); eGFR 58.37
--- NOTE | 2024-08-19 10:01 | W.PN.VS ---
Today's Communication / Plan
-
Discussed with Dr. Strong
Assessment/Plan
-
POD 1 Drug-coated balloon angioplasty to right above-knee popliteal artery (6 mm x 40 mm Lutonix DCB)
Plan:
-Okay for discharge from vascular standpoint, we will add follow-up to chart
Subjective Data
-
Date of Service: August 19, 2024
Patient seen at bedside this a.m. Patient offers no complaints at this time. No events overnight.
Objective Data
-
Vital Signs
Temp Pulse Resp BP Pulse Ox
98.1 F 70 18 125/59 96
08/19/24 08:19 08/19/24 08:19 08/19/24 08:19 08/19/24 08:19 08/19/24 08:19
Intake and Output
08/18/24 08/19/24 08/20/24
06:59 06:59 06:59
Intake Total 1840 / 1840 1920 / 1920
Output Total 1350 / 1350
Balance 1840 / 1840 570 / 570
Intake:
Oral fluids 1200 / 1200 960 / 960
IV fluids (Total) 640 / 640 960 / 960
Output:
Urine, Voided 1350 / 1350
Lab Results
08/19/24 08:08
08/19/24 08:08
Calcium 9.1 mg/dl (8.4-10.2) 08/19/24 08:08
Total Bilirubin 0.2 mg/dl (0.2-1.3) 08/14/24 10:49
AST 21 U/L (17-59) 08/14/24 10:49
ALT 26 U/L (0-50) 08/14/24 10:49
Alkaline Phosphatase 107 U/L (38-126) 08/14/24 10:49
Total Protein 7.0 g/dl (6.3-8.2) 08/14/24 10:49
Albumin 4.6 g/dl (3.5-5.0) 08/14/24 10:49
Physical Exam
-
AAOx3
No tachypnea on room air
no tachycardia
Abdomen soft, nontender
Left groin site clean, dry, intact, soft, flat
Bilateral feet warm
--- NOTE | 2024-08-19 10:08 | W.PN.NEPH.PH ---
Today's Communication / Plan
-
follow BMP
Assessment/Plan
-
Assessment:L
Diabetic right foot infection/cellulitis
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
CKD3 baseline 1.3-1.5
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
h/o syncope from severe orthostatic hypotension
-HTN
-CAD
-DM2-with microvascular complications
Anxiety, Insomnia
BPH
Plan:
await tac level
follow BMP
permissive HTN given orthostatic hypotension
-
-
Date of Service: August 19, 2024
CC / HPI / ROS
-
Chief Complaint:
renal transplant
History of Present Illness:
CKD/Cr stable 1.3
BP good this am
s/p PTCA right popliteal artery
Review of Systems:
no CP/SOB
Labs
-
Labs:
WBC 12.4 10^3/uL (4.8-10.8) H 08/19/24 08:08
RBC 4.73 10^6/uL (4.70-6.10) 08/19/24 08:08
Hgb 13.8 g/dL (13.0-18.0) 08/19/24 08:08
Hct 40.9 % (39.0-52.0) 08/19/24 08:08
Plt Count 175 10^3/uL (130-400) 08/19/24 08:08
Sodium 137 mmol/L (135-145) 08/19/24 08:08
Potassium 4.6 mmol/L (3.5-5.1) 08/19/24 08:08
Chloride 103 mmol/L (98-107) 08/19/24 08:08
Carbon Dioxide 23 mmol/L (22-30) 08/19/24 08:08
BUN 24 mg/dl (9-20) H 08/19/24 08:08
Creatinine 1.3 mg/dL (0.7-1.3) 08/19/24 08:08
eGFR 58.37 08/19/24 08:08
Glucose 196 mg/dl (70-99) H 08/19/24 08:08
Calcium 9.1 mg/dl (8.4-10.2) 08/19/24 08:08
Albumin 4.6 g/dl (3.5-5.0) 08/14/24 10:49
Physical Exam
-
Vital Signs:
Vital Signs
Temp Pulse Resp BP Pulse Ox
98.1 F 70 18 125/59 96
08/19/24 08:19 08/19/24 08:19 08/19/24 08:19 08/19/24 08:19 08/19/24 08:19
Cardiovascular:: Regular rate and rhythm
Respiratory:: Bilateral: CTA
Lung Excursion:: Normal
Abdomen:: Nontender and Soft
Bowel Sounds:: Normal
Extremity Edema:: +1: Bilateral:
--- NOTE | 2024-08-19 11:43 | CM ---
S/p angioplasty yesterday.
Plan: home with [facility] when medically stable.
[2024-08-19 12:48] LABS: Glucose - Point of Care 286 mg/dl (70-99)
[2024-08-19] MEDS: NOVOLOG FLEXPEN-LOW RESISTANCE 3 UNITS SC (12:51)
--- NOTE | 2024-08-19 13:28 | W.PN.ID1 ---
Date of Service
Date of Service: August 19, 2024
Today's Communication
Transition IV cefazolin 2gIV q8h (d5) to Augmentin 875mg po bid through 08/28/24.
Assessment / Plan
# Significant ruptured blisters right foot with large areas of exposed wound tissue
# PAD
- MRI of right foot: no osteo, no abscess
-Arterial duplex/CAM: Right SFA stenosis
- 08/18 s/p RLE endovascular intervention
- Transition IV cefazolin 2gIV q8h (d5) to Augmentin 875mg po bid through 08/28/24.
- [facility]
# Renal transplant on tacrolimus, mycophenolate, prednisone
- IV belatacept started 06/2023 and discontinued last month due to possible source of peripheral edema/blisters.
# Conditions prior to admission
Diabetes with neuropathy and nephropathy
ESRD; previously on HD
Living related donor renal transplant 10/31/2022 at [place]
CKD3
HTN
Dyslipidemia
CAD
CVA
YASH on CPAP
Anxiety/depression
Macular degeneration
Narcolepsy
ADHD
Appendectomy
Right AV fistula
TURP
Knee arthroscopic surgery
Chief Complaint
-: Other (wounds)
Subjective / Review of Systems
no new complaints.
Vital Signs / Physical Exam
Vital Signs
Vital Signs
Temp Pulse Resp BP Pulse Ox
98.1 F 70 18 125/59 96
08/19/24 08:19 08/19/24 08:19 08/19/24 08:19 08/19/24 08:19 08/19/24 08:19
Physical Exam
Constitutional: No Acute Distress and Comfortable
Cardiovascular: Regular Rate and S1/S2
Pulmonary: Clear
Gastrointestinal: Soft, Non Tender and Non Distended
Extremities: Negative Edema
Wound: Other (Right foot wounds stable)
Objective Data
Lab Data
Lab Results
08/19/24 08:08
08/19/24 08:08
ESR 15 mm/hour (0-20) 08/14/24 10:49
Estimated Creat Clear 64 ml/min 08/19/24 08:08
Lactic Acid 1.2 mmol/L (0.7-2.0) 08/14/24 11:49
Total Bilirubin 0.2 mg/dl (0.2-1.3) 08/14/24 10:49
AST 21 U/L (17-59) 08/14/24 10:49
ALT 26 U/L (0-50) 08/14/24 10:49
Alkaline Phosphatase 107 U/L (38-126) 08/14/24 10:49
C-Reactive Protein 17.80 mg/L (0.0-10.00) H 08/14/24 10:49
Most recent labs reviewed.
Micro Results:
08/14/24 11:49 Blood Culture - Final
Blood/Venous No Growth - Final Report
08/14/24 R Foot XRAY: Prominent soft tissue edema within the foot and great toe. No erosions or evidence for osteomyelitis, noting that radiographs are relatively insensitive for detection of this pathology.
[2024-08-19] MEDS: AUGMENTIN 875 MG/125 MG 1 TABLET PO ×2 (14:24→21:42)
--- NOTE | 2024-08-19 14:49 | W.PN.HOSP.TC ---
Today's Communication/Plan
-
cut back Nifedipine to 30mg daily
Abx per ID
wound care
DC planning
Assessment / Plan
Assessment / Plan
MRI R foot w/wo: Moderate diffuse edema throughout the dorsal midfoot suggesting cellulitis. No loculated fluid collections. No MR evidence for osteomyelitis. Scattered mild degenerative changes.
RLE U/S: No evidence of DVT of the right lower extremity. Mild right calf edema.
Assessment:
Diabetic right foot infection/cellulitis associated with ruptured blisters right foot with large areas of exposed wound tissue
- Immunosuppressed as below
- MRI without OM
- cont Ancef as per ID; at dc, transition to Augmentin 875mg po bid through 08/28/24
- BCx NGTD
- CAM/TBI: CAM moderately decreased measuring 0.65. TBI 0.65. No evidence for inflow disease. 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 Monophasic continuous pedal waveforms.
- Vascular following; s/p Drug-coated balloon angioplasty to right above-knee popliteal artery (6 mm x 40 mm Lutonix DCB) 08/18
- continue ASA/Plavix
- Wound care following
SHERRY on CKD 2: s/p renal transplant in 10/2022, cont Mycophenolate, prednisone, Prograf. follow [place] level. Nephrology following
Orthostatic Hypotension: compression stockings, Midodrine PRN if still low
Essential Hypertension: cont Coreg, low dose Nifedipine
Hyperlipidemia: cont statin
DM2: a1c 7.4%, cont Lantus/premeal NovoLog, SSI/accu-checks
Anxiety, Insomnia: cont clonazepam
Obesity due to excess calories
FULL/Heparin
Anticipated Discharge: Within 24 hours
Subjective/Interval History
-
Date of Service: August 19, 2024
no complaints
Objective Data
-
Labs:
Laboratory Results
08/19/24
08:08
WBC 12.4 H
Hgb 13.8
Hct 40.9
Plt Count 175
Sodium 137
Potassium 4.6
Chloride 103
Carbon Dioxide 23
BUN 24 H
Creatinine 1.3
Glucose 196 H
Calcium 9.1
Vital Signs:
Vital Signs
Temp Pulse Resp BP Pulse Ox
98.1 F 70 18 125/59 96
08/19/24 08:19 08/19/24 08:19 08/19/24 08:19 08/19/24 08:19 08/19/24 08:19
I&O
08/18/24 08/19/24 08/20/24
06:59 06:59 06:59
Intake Total 1840 / 1840 1920 / 1920
Output Total 1350 / 1350
Balance 18390 570 / 570
Physical Exam
-
General: No Apparent Distress
HEENT: Normocephalic and Atraumatic
Respiratory: Clear to Auscultation; Negative Wheezes
Cardiac: Regular Rhythm and S1/S2
GI: Soft and Nontender
Genito-urinary: No Costovertebral Tender
Neuro: AO x 3
Psych: Calm
Data Reviewed
-
Total Time Spent with Patient (in minutes): 41
Labs: Labs Reviewed by me
[2024-08-19 15:00] VITALS: BP 160/113; BP 163/81; BP 171/73; PULSE 68; PULSE 69; PULSE 72
[2024-08-19 17:21] LABS: Glucose - Point of Care 207 mg/dl (70-99)
[2024-08-19] MEDS: NOVOLOG FLEXPEN-LOW RESISTANCE 2 UNITS SC (18:01)
[2024-08-19 19:35] VITALS: BP 171/72
[2024-08-19 21:46] LABS: Glucose - Point of Care 134 mg/dl (70-99)
[2024-08-19] MEDS: ROXICODONE 5 MG PO (22:01)
[2024-08-19] MEDS: LANTUS 0.15 UNITS SC (22:01)
[2024-08-19 23:05] VITALS: BP 175/74
--- NOTE | 2024-08-20 00:11 | PTCARENOTE ---
Pt assessed as per flow sheet. Pedal pulses weak but palpable. Dsgs CDI. C/O pain /10 and medicated as ordered with (+) results. No s/s of distress assessed. Will continue to monitor.
[2024-08-20 03:10] VITALS: BP 171/73
[2024-08-20 07:30] VITALS: BP 173/78
[2024-08-20 07:52] LABS: Hematocrit 42.3 % (39.0-52.0); Hemoglobin 14.3 g/dL (13.0-18.0); Mean Corp Hgb Conc. 33.8 g/dL (33.0-37.0); Mean Corpuscular Hgb 29.2 pg (27.0-31.0); Mean Corpuscular Volume 86.5 fL (80.0-94.0); Mean Platelet Volume 10.7 fL (7.4-10.4); Platelet Count 183 10^3/uL (130-400); Red Blood Cell Count 4.89 10^6/uL (4.70-6.10); White Blood Cell Count 10.5 10^3/uL (4.8-10.8)
--- NOTE | 2024-08-20 07:57 | PN.DE.MGMTRT ---
Insulin Management
- -
08/20/2024 Diabetes Management Consult
Patient admitted 08/14 c/o R leg weeping wounds, pain and redness. To OR for drug coated balloon angioplasty to R above knee popliteal artery. PMH renal transplant, CVA, HTN, HCL, diabetes, renal failure - dialysis t, TH, Sat, anxiety, depression,
UTI, meningitis, macular degeneration. Prior to admission was taking lantus 25 units @ HS with Humalog 10 units AC. A1C on admission 7.4%. Cr 1.3, eGFR 58.37 08/19.
Patient is awake alert and oriented resting in bed, able to discuss diabetes care. States he has been trying to get an appointment with Dr. Soria for diabetes care.
08/19 glucose range 134 to 286. Will continue AC novolog 10 units with corrective insulin and increase HS lantus to 17 units.
Will follow for further needed adjustments.
Diabetes History
- -
Type of Diabetes: 2 requiring insulin
Pre-Admission Diabetes Regimen
08/19/24
08:08
Creatinine 1.3
Lab Results
Hemoglobin A1c 7.4 % (4.0-5.6) H 08/15/24 07:45
Insulin Pump Settings
IP Diabetes Regimen
08/19/24 08/19/24 08/19/24
08:08 08:43 12:35
Glucose 196 H
POC Glucose 189 H 286 H
08/19/24 08/19/24
17:09 21:35
Glucose
POC Glucose 207 H 134 H
Meal type: Lunch
Amount consumed: 100%
Patient Education
[2024-08-20] MEDS: COREG 6.25 MG PO ×2 (08:17→21:28)
[2024-08-20] MEDS: PROCARDIA XL (EXTENDED RELEASE) 30 MG PO (08:18)
[2024-08-20] MEDS: MYFORTIC DELAYED REL. 720 MG PO ×2 (08:18→21:28)
[2024-08-20] MEDS: PLAVIX 75 MG PO (08:18)
[2024-08-20] MEDS: AUGMENTIN 875 MG/125 MG 1 TABLET PO (08:18)
[2024-08-20] MEDS: LIPITOR 40 MG PO (08:18)
[2024-08-20] MEDS: ASPIR LOW (ENTERIC COATED) 81 MG PO (08:18)
[2024-08-20] MEDS: DELTASONE 5 MG PO (08:18)
[2024-08-20] MEDS: MAG-TAB SR 84 MG PO (08:18)
[2024-08-20] MEDS: HEPARIN SC ×3 (08:19→21:25)
[2024-08-20] MEDS: PROGRAF 2 MG PO ×2 (08:19→21:28)
[2024-08-20] MEDS: BACTROBAN 2% OINTMENT 1 APPLIC TOPICAL (08:19)
[2024-08-20 08:20] LABS: Blood Urea Nitrogen 23 mg/dl (9-20); Calcium 9.2 mg/dl (8.4-10.2); Carbon Dioxide 25 mmol/L (22-30); Chloride 103 mmol/L (98-107); Estimated Creatinine Clearance 69 ml/min; Glucose 178 mg/dl (70-99); Potassium 4.7 mmol/L (3.5-5.1); Sodium 140 mmol/L (135-145); eGFR > 60.00
[2024-08-20 08:42] LABS: Glucose - Point of Care 182 mg/dl (70-99)
[2024-08-20] MEDS: NOVOLOG FLEXPEN-LOW RESISTANCE 1 UNITS SC ×3 (09:28→18:05)
[2024-08-20] MEDS: NOVOLOG FLEXPEN 10 UNITS SC ×3 (09:29→18:05)
[2024-08-20 11:43] VITALS: BP 146/59
--- NOTE | 2024-08-20 12:28 | W.PN.ID1 ---
Date of Service
Date of Service: August 20, 2024
Today's Communication
See below
Assessment / Plan
# Multiple ruptured blisters right foot with large areas of exposed wound tissue
# PAD
- MRI of right foot: no osteo, no abscess
-Arterial duplex/CAM: Right SFA stenosis
- 08/18 s/p RLE endovascular intervention
- s/p IV cefazolin 2gIV q8h (5d)
- Currently on Augmentin 875mg po bid.
- Wound tissues deteriorated, unhealthy looking especially 2nd toe, 1st met head and 5th metatarsal wounds
- Reached out to Podiatry regarding opinion on I+D.
- Replace Augmentin with Zosyn for now pending podiatry eval.
# Renal transplant on tacrolimus, mycophenolate, prednisone
- IV belatacept started 06/2023 and discontinued last month due to possible source of peripheral edema/blisters.
# Conditions prior to admission
Diabetes with neuropathy and nephropathy
ESRD; previously on HD
Living related donor renal transplant 10/31/2022 at [place]
CKD3
HTN
Dyslipidemia
CAD
CVA
YASH on CPAP
Anxiety/depression
Macular degeneration
Narcolepsy
ADHD
Appendectomy
Right AV fistula
TURP
Knee arthroscopic surgery
Chief Complaint
-: Other (wounds)
Subjective / Review of Systems
Less wound pain.
Vital Signs / Physical Exam
Vital Signs
Vital Signs
Temp Pulse Resp BP Pulse Ox
98.0 F 67 16 146/59 96
08/20/24 11:43 08/20/24 11:43 08/20/24 11:43 08/20/24 11:43 08/20/24 11:43
Physical Exam
Constitutional: No Acute Distress and Comfortable
Cardiovascular: Regular Rate and S1/S2
Pulmonary: Clear
Gastrointestinal: Soft, Non Tender and Non Distended
Wound: Other (See photos below)
Neurological: AO x 3
Physical Exam:
Objective Data
Lab Data
Lab Results
08/20/24 07:33
08/20/24 07:33
ESR 15 mm/hour (0-20) 08/14/24 10:49
Estimated Creat Clear 69 ml/min 08/20/24 07:33
Lactic Acid 1.2 mmol/L (0.7-2.0) 08/14/24 11:49
Total Bilirubin 0.2 mg/dl (0.2-1.3) 08/14/24 10:49
AST 21 U/L (17-59) 08/14/24 10:49
ALT 26 U/L (0-50) 08/14/24 10:49
Alkaline Phosphatase 107 U/L (38-126) 08/14/24 10:49
C-Reactive Protein 17.80 mg/L (0.0-10.00) H 08/14/24 10:49
Most recent labs reviewed.
Micro Results:
08/14/24 11:49 Blood Culture - Final
Blood/Venous No Growth - Final Report
08/14/24 R Foot XRAY: Prominent soft tissue edema within the foot and great toe. No erosions or evidence for osteomyelitis, noting that radiographs are relatively insensitive for detection of this pathology.
Care Review
Plan reviewed with: Physician (Dr. Ghada Navas)
[2024-08-20 12:56] LABS: Glucose - Point of Care 161 mg/dl (70-99)
--- NOTE | 2024-08-20 13:09 | CM ---
Patient seen bedside.
Per patient ellis is for home with [facility].
IMM completed.
Plan: home with [facility].
[2024-08-20] MEDS: ZOSYN 50 IV ×2 (13:47→21:28)
--- NOTE | 2024-08-20 14:03 | W.PN.NEPH.PH ---
Today's Communication / Plan
-
follow BMP
Assessment/Plan
-
Assessment:L
Diabetic right foot infection/cellulitis
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
CKD3 baseline 1.3-1.5
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
h/o syncope from severe orthostatic hypotension
-HTN
-CAD
-DM2-with microvascular complications
Anxiety, Insomnia
BPH
Plan:
tac level 5.8
follow BMP
permissive HTN given orthostatic hypotension
back on low dose nifedipine
-
-
Date of Service: August 20, 2024
CC / HPI / ROS
-
Chief Complaint:
renal transplant
History of Present Illness:
CKD/Cr stable 1.2
BP stable
s/p PTCA right popliteal artery
Review of Systems:
no CP/SOB
Labs
-
Labs:
WBC 10.5 10^3/uL (4.8-10.8) 08/20/24 07:33
RBC 4.89 10^6/uL (4.70-6.10) 08/20/24 07:33
Hgb 14.3 g/dL (13.0-18.0) 08/20/24 07:33
Hct 42.3 % (39.0-52.0) 08/20/24 07:33
Plt Count 183 10^3/uL (130-400) 08/20/24 07:33
Sodium 140 mmol/L (135-145) 08/20/24 07:33
Potassium 4.7 mmol/L (3.5-5.1) 08/20/24 07:33
Chloride 103 mmol/L (98-107) 08/20/24 07:33
Carbon Dioxide 25 mmol/L (22-30) 08/20/24 07:33
BUN 23 mg/dl (9-20) H 08/20/24 07:33
Creatinine 1.2 mg/dL (0.7-1.3) 08/20/24 07:33
eGFR > 60.00 08/20/24 07:33
Glucose 178 mg/dl (70-99) H 08/20/24 07:33
Calcium 9.2 mg/dl (8.4-10.2) 08/20/24 07:33
Albumin 4.6 g/dl (3.5-5.0) 08/14/24 10:49
Physical Exam
-
Vital Signs:
Vital Signs
Temp Pulse Resp BP Pulse Ox
98.0 F 67 16 146/59 96
08/20/24 11:43 08/20/24 11:43 08/20/24 11:43 08/20/24 11:43 08/20/24 11:43
Cardiovascular:: Regular rate and rhythm
Respiratory:: Bilateral: Coarse
Lung Excursion:: Normal
Abdomen:: Nontender and Soft
Bowel Sounds:: Normal
Extremity Edema:: None: Bilateral:
--- NOTE | 2024-08-20 14:30 | W.PN.HOSP.TC ---
Today's Communication/Plan
-
Zosyn pending Podiatry eval for consideration of I&D
Assessment / Plan
Assessment / Plan
MRI R foot w/wo: Moderate diffuse edema throughout the dorsal midfoot suggesting cellulitis. No loculated fluid collections. No MR evidence for osteomyelitis. Scattered mild degenerative changes.
RLE U/S: No evidence of DVT of the right lower extremity. Mild right calf edema.
Assessment:
Diabetic right foot infection/cellulitis associated with ruptured blisters right foot with large areas of exposed wound tissue
- Immunosuppressed as below
- MRI without OM
- BCx NGTD
- CAM/TBI: CAM moderately decreased measuring 0.65. TBI 0.65. No evidence for inflow disease. 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 Monophasic continuous pedal waveforms.
- Vascular following; s/p Drug-coated balloon angioplasty to right above-knee popliteal artery (6 mm x 40 mm Lutonix DCB) 08/18
- continue ASA/Plavix
- continue Zosyn
- Wound care following
- Podiatry re-evaluation for I & D
SHERRY on CKD 2: s/p renal transplant in 10/2022, cont Mycophenolate, prednisone, Prograf. follow [place] level is 5.8. Nephrology following
Orthostatic Hypotension: compression stockings, Midodrine PRN if still low
Essential Hypertension: cont Coreg, low dose Nifedipine
Hyperlipidemia: cont statin
DM2: a1c 7.4%, cont Lantus/premeal NovoLog, SSI/accu-checks. DIRECTOR OF ARCHITECTURE following.
Anxiety, Insomnia: cont clonazepam
Obesity due to excess calories
FULL/Heparin
Anticipated Discharge: > 48 hours
Subjective/Interval History
-
Date of Service: August 20, 2024
reports improving wound pain
no other complaints
Objective Data
-
Labs:
Laboratory Results
08/20/24
07:33
WBC 10.5
Hgb 14.3
Hct 42.3
Plt Count 183
Sodium 140
Potassium 4.7
Chloride 103
Carbon Dioxide 25
BUN 23 H
Creatinine 1.2
Glucose 178 H
Calcium 9.2
Vital Signs:
Vital Signs
Temp Pulse Resp BP Pulse Ox
98.0 F 67 16 146/59 96
08/20/24 11:43 08/20/24 11:43 08/20/24 11:43 08/20/24 11:43 08/20/24 11:43
I&O
08/19/24 08/20/24 08/21/24
06:59 06:59 06:59
Intake Total 1920 / 1920
Output Total 1350 / 1350
Balance 570 / 570
Physical Exam
-
General: No Apparent Distress
HEENT: Normocephalic and Atraumatic
Respiratory: Negative Wheezes
Cardiac: Regular Rhythm
GI: Soft
Genito-urinary: No Costovertebral Tender
Skin: Other (RLE wounds)
Neuro: AO x 3
Psych: Calm
Data Reviewed
-
Total Time Spent with Patient (in minutes): 41
Labs: Labs Reviewed by me
[2024-08-20 15:59] VITALS: BP 141/62
[2024-08-20] MEDS: DILAUDID 0.5 MG IV (17:29)
[2024-08-20 17:36] LABS: Glucose - Point of Care 171 mg/dl (70-99)
[2024-08-20 20:54] VITALS: BP 127/63; BP 152/77; BP 165/78; PULSE 57; PULSE 60; PULSE 62
[2024-08-20] MEDS: LANTUS 0.15 UNITS SC (22:34)
[2024-08-20 22:41] LABS: Glucose - Point of Care 165 mg/dl (70-99)
--- NOTE | 2024-08-20 23:03 | W.PN.SURGUPD ---
Surgical Update
Surgical Update
74 yo M with significant and rapid worsening of right forefoot early gangrene, necrosis, and SSTI. Now s/p RLE angio with vascular surgery
-Patient seen and evaluated at bedside
-Recommend betadine DSD to forefoot and blistered area
-Right forefoot with accelerated skin breakdown and skin sloughing
-Tentatively plan for right foot debridement vs TMA tomorrow 08/21. Will re-evaluate
[2024-08-20 23:13] VITALS: BP 189/80
[2024-08-21] VITALS (11 sets, daily range): BP systolic 95–177; BP diastolic 54–76; PULSE 64–72
[2024-08-21] MEDS: DILAUDID 0.5 MG IV (00:59)
[2024-08-21] MEDS: ZOSYN 50 IV ×4 (03:05→19:35)
--- NOTE | 2024-08-21 07:20 | PN.DE.MGMTRT ---
Insulin Management
- -
08/21/2024 Diabetes Management follow up
Patient admitted 08/14 c/o R leg weeping wounds, pain and redness. To OR for drug coated balloon angioplasty to R above knee popliteal artery. PMH renal transplant, CVA, HTN, HCL, diabetes, renal failure - dialysis t, TH, Sat, anxiety, depression,
UTI, meningitis, macular degeneration.
Prior to admission was taking Lantus 25 units @ HS with Humalog 10 units AC. States he has been trying to get an appointment with Dr. Soria for diabetes care. A1C on admission 7.4%. Cr 1.3, eGFR 58.37 08/19.
Patient is awake alert and oriented, sitting up in bed, offers no complaints, able to discuss diabetes care.
He is currently NPO for OR later today. Received reduced dose of Lantus 15 units @ HS
08/20 glucose stable without elevations, premeal range of 161 to 182, FBG 176(v).
Will continue HS Lantus to 17 units and AC NovoLog 10 units with corrective insulin.
Will follow for further needed adjustments.
Diabetes History
- -
Type of Diabetes: 2 requiring insulin
Pre-Admission Diabetes Regimen
08/20/24
07:33
Creatinine 1.2
Lab Results
Hemoglobin A1c 7.4 % (4.0-5.6) H 08/15/24 07:45
Insulin Pump Settings
IP Diabetes Regimen
08/20/24 08/20/24 08/20/24
07:33 08:31 12:45
Glucose 178 H
POC Glucose 182 H 161 H
08/20/24 08/20/24
17:24 22:29
Glucose
POC Glucose 171 H 165 H
Meal type: Breakfast
Amount consumed: 100%
Patient Education
[2024-08-21] MEDS: MYFORTIC DELAYED REL. 720 MG PO ×2 (08:21→19:35)
[2024-08-21] MEDS: PROGRAF 2 MG PO ×2 (08:21→19:34)
[2024-08-21] MEDS: PROCARDIA XL (EXTENDED RELEASE) 30 MG PO (08:22)
[2024-08-21] MEDS: PLAVIX 75 MG PO (08:22)
[2024-08-21] MEDS: ASPIR LOW (ENTERIC COATED) 81 MG PO (08:23)
[2024-08-21] MEDS: LIPITOR 40 MG PO (08:23)
[2024-08-21] MEDS: COREG 6.25 MG PO (08:24)
[2024-08-21] MEDS: DELTASONE 5 MG PO (08:24)
[2024-08-21] MEDS: MAG-TAB SR 84 MG PO (08:24)
[2024-08-21] MEDS: HEPARIN 5000 UNITS SC ×2 (08:24→22:24)
[2024-08-21] MEDS: NOVOLOG FLEXPEN SC ×2 (08:25→12:59)
[2024-08-21] MEDS: BACTROBAN 2% OINTMENT 1 APPLIC TOPICAL (08:25)
[2024-08-21 08:38] LABS: Hematocrit 41.3 % (39.0-52.0); Hemoglobin 13.9 g/dL (13.0-18.0); Mean Corp Hgb Conc. 33.7 g/dL (33.0-37.0); Mean Corpuscular Hgb 29.2 pg (27.0-31.0); Mean Corpuscular Volume 86.8 fL (80.0-94.0); Mean Platelet Volume 10.8 fL (7.4-10.4); Platelet Count 166 10^3/uL (130-400); Red Blood Cell Count 4.76 10^6/uL (4.70-6.10); Red Cell Dist. Width 13.2 % (11.5-14.5); White Blood Cell Count 10.3 10^3/uL (4.8-10.8)
[2024-08-21] MEDS: KLONOPIN 1 MG PO (08:50)
[2024-08-21 09:04] LABS: Blood Urea Nitrogen 22 mg/dl (9-20); Calcium 9.3 mg/dl (8.4-10.2); Carbon Dioxide 27 mmol/L (22-30); Chloride 98 mmol/L (98-107); Estimated Creatinine Clearance 64 ml/min; Glucose 176 mg/dl (70-99); Potassium 4.7 mmol/L (3.5-5.1); Sodium 136 mmol/L (135-145); eGFR 58.37
[2024-08-21] MEDS: NOVOLOG FLEXPEN-LOW RESISTANCE 1 UNITS SC ×2 (09:11→13:00)
--- NOTE | 2024-08-21 10:02 | W.PN.HOSP.TC ---
Today's Communication/Plan
-
Podiatry following for OR for possible I&D vs TMA today
continue Zosyn day 2
Assessment / Plan
Assessment / Plan
MRI R foot w/wo: Moderate diffuse edema throughout the dorsal midfoot suggesting cellulitis. No loculated fluid collections. No MR evidence for osteomyelitis. Scattered mild degenerative changes.
RLE U/S: No evidence of DVT of the right lower extremity. Mild right calf edema.
Assessment:
Diabetic right foot infection/cellulitis associated with ruptured blisters right foot with large areas of exposed wound tissue
- Immunosuppressed as below
- MRI without OM
- BCx NGTD
- CAM/TBI: CAM moderately decreased measuring 0.65. TBI 0.65. No evidence for inflow disease. 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 Monophasic continuous pedal waveforms.
- Vascular following; s/p Drug-coated balloon angioplasty to right above-knee popliteal artery (6 mm x 40 mm Lutonix DCB) 08/18
- continue ASA/Plavix
- continue Zosyn, day 2
- Wound care following
- Podiatry following for OR for possible I&D vs TMA today
SHERRY on CKD 2: s/p renal transplant in 10/2022, cont Mycophenolate, prednisone, Prograf. follow Tac level is 5.8. Nephrology following
Orthostatic Hypotension: compression stockings, Midodrine PRN if still low
Essential Hypertension: cont Coreg, low dose Nifedipine
Hyperlipidemia: cont statin
DM2: a1c 7.4%, cont Lantus/premeal NovoLog, SSI/accu-checks. 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
Anxiety, Insomnia: cont clonazepam
Obesity due to excess calories
FULL/Heparin
Anticipated Discharge: > 48 hours
Subjective/Interval History
-
Date of Service: August 21, 2024
denies any new complaints at present
for OR today
Objective Data
-
Labs:
Laboratory Results
08/21/24
08:14
WBC 10.3
Hgb 13.9
Hct 41.3
Plt Count 166
Sodium 136
Potassium 4.7
Chloride 98
Carbon Dioxide 27
BUN 22 H
Creatinine 1.3
Glucose 176 H
Calcium 9.3
Vital Signs:
Vital Signs
Temp Pulse Resp BP Pulse Ox
98.1 F 55 18 177/76 97
08/21/24 07:34 08/21/24 08:22 08/21/24 07:34 08/21/24 08:24 08/21/24 07:34
I&O
08/20/24 08/21/24 08/22/24
06:59 06:59 06:59
Intake Total 100 / 100
Balance 100 / 100
Physical Exam
-
General: No Apparent Distress
HEENT: Normocephalic and Atraumatic
Respiratory: Negative Wheezes
Cardiac: Regular Rhythm and S1/S2
GI: Soft and Nontender
Genito-urinary: No Costovertebral Tender
Skin: Other (RLE wounds)
Neuro: AO x 3
Psych: Calm
Data Reviewed
-
Total Time Spent with Patient (in minutes): 42
Labs: Labs Reviewed by me
--- NOTE | 2024-08-21 10:54 | W.PN.ID1 ---
Date of Service
Date of Service: August 21, 2024
Today's Communication
Continue Zosyn.
Assessment / Plan
# Right foot wound infection
# Multiple ruptured blisters right foot with large areas of exposed wound tissue
# PAD
- MRI of right foot: no osteo, no abscess
-Arterial duplex/CAM: Right SFA stenosis
- 08/18 s/p RLE endovascular intervention
- Wound tissues deteriorated, unhealthy looking especially 2nd toe, 1st met head and 5th metatarsal wounds
- Appreciate Podiatry. To OR for I+D. Please obtain deep tissue cx.
- Continue Zosyn
# Renal transplant on tacrolimus, mycophenolate, prednisone
- IV belatacept started 06/2023 and discontinued last month due to possible source of peripheral edema/blisters.
# Conditions prior to admission
Diabetes with neuropathy and nephropathy
ESRD; previously on HD
Living related donor renal transplant 10/31/2022 at [place]
CKD3
HTN
Dyslipidemia
CAD
CVA
YASH on CPAP
Anxiety/depression
Macular degeneration
Narcolepsy
ADHD
Appendectomy
Right AV fistula
TURP
Knee arthroscopic surgery
Chief Complaint
-: Other (wounds)
Subjective / Review of Systems
Surgery today
Vital Signs / Physical Exam
Vital Signs
Vital Signs
Temp Pulse Resp BP Pulse Ox
98.1 F 55 18 177/76 97
08/21/24 07:34 08/21/24 08:22 08/21/24 07:34 08/21/24 08:24 08/21/24 07:34
Physical Exam
Constitutional: No Acute Distress
Eyes: No Conjunctival Hemorrhage
Cardiovascular: Regular Rate and S1/S2
Gastrointestinal: Soft, Non Tender and Non Distended
Extremities: Negative Edema
Wound: Other (right foot dressing dry. See yesterday's photos in progress note. )
Neurological: AO x 3
Objective Data
Lab Data
Lab Results
08/21/24 08:14
08/21/24 08:14
ESR 15 mm/hour (0-20) 08/14/24 10:49
Estimated Creat Clear 64 ml/min 08/21/24 08:14
Lactic Acid 1.2 mmol/L (0.7-2.0) 08/14/24 11:49
Total Bilirubin 0.2 mg/dl (0.2-1.3) 08/14/24 10:49
AST 21 U/L (17-59) 08/14/24 10:49
ALT 26 U/L (0-50) 08/14/24 10:49
Alkaline Phosphatase 107 U/L (38-126) 08/14/24 10:49
C-Reactive Protein 17.80 mg/L (0.0-10.00) H 08/14/24 10:49
Most recent labs reviewed.
Micro Results:
08/14/24 11:49 Blood Culture - Final
Blood/Venous No Growth - Final Report
08/14/24 R Foot XRAY: Prominent soft tissue edema within the foot and great toe. No erosions or evidence for osteomyelitis, noting that radiographs are relatively insensitive for detection of this pathology.
--- NOTE | 2024-08-21 10:58 | CM ---
Patient for OR today.
Continue IV anbx.
Plan: home with [facility] when stable.
[2024-08-21 12:26] LABS: Glucose - Point of Care 178 mg/dl (70-99)
--- NOTE | 2024-08-21 15:24 | PTCARENOTE ---
Report given and pt sent to OR.
--- NOTE | 2024-08-21 15:32 | W.PN.NEPH.PH ---
Today's Communication / Plan
-
follow labs
Assessment/Plan
-
Assessment:L
Diabetic right foot infection/cellulitis
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
CKD3 baseline 1.3-1.5
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
h/o syncope from severe orthostatic hypotension
-HTN
-CAD
-DM2-with microvascular complications
Anxiety, Insomnia
BPH
Plan:
tac level 5.8
stable renal function
permissive HTN given orthostatic hypotension
back on low dose nifedipine and coreg
for I&D vs TMA today
will s/o, call with ?s
f/u Dr Villasenor in Aug
-
-
Date of Service: August 21, 2024
CC / HPI / ROS
-
Chief Complaint:
renal transplant
History of Present Illness:
CKD/Cr stable 1.3
BP stable
s/p PTCA right popliteal artery
Review of Systems:
no CP/SOB
Labs
-
Labs:
WBC 10.3 10^3/uL (4.8-10.8) 08/21/24 08:14
RBC 4.76 10^6/uL (4.70-6.10) 08/21/24 08:14
Hgb 13.9 g/dL (13.0-18.0) 08/21/24 08:14
Hct 41.3 % (39.0-52.0) 08/21/24 08:14
Plt Count 166 10^3/uL (130-400) 08/21/24 08:14
Sodium 136 mmol/L (135-145) 08/21/24 08:14
Potassium 4.7 mmol/L (3.5-5.1) 08/21/24 08:14
Chloride 98 mmol/L (98-107) 08/21/24 08:14
Carbon Dioxide 27 mmol/L (22-30) 08/21/24 08:14
BUN 22 mg/dl (9-20) H 08/21/24 08:14
Creatinine 1.3 mg/dL (0.7-1.3) 08/21/24 08:14
eGFR 58.37 08/21/24 08:14
Glucose 176 mg/dl (70-99) H 08/21/24 08:14
Calcium 9.3 mg/dl (8.4-10.2) 08/21/24 08:14
Albumin 4.6 g/dl (3.5-5.0) 08/14/24 10:49
Physical Exam
-
Vital Signs:
Vital Signs
Temp Pulse Resp BP Pulse Ox
98.1 F 55 18 177/76 97
08/21/24 07:34 08/21/24 08:22 08/21/24 07:34 08/21/24 08:24 08/21/24 07:34
Cardiovascular:: Regular rate and rhythm
Respiratory:: Bilateral: CTA
Lung Excursion:: Normal
Abdomen:: Nontender and Soft
Extremity Edema:: None: Bilateral:
[place] Catheter: No
[2024-08-21 15:58] LABS: Glucose - Point of Care 171 mg/dl (70-99)
[2024-08-21 17:32] LABS: Glucose - Point of Care 213 mg/dl (70-99)
--- NOTE | 2024-08-21 17:40 | W.PN.UPDATE ---
Update Note
Progress Note Update
s/p right TMA left debridment
-NWB RLE, LLE transfers only
-Dressings changed in 1 week
-ABx x 2 weeks per ID recs
-resume diet
-Follow up 2 weeks
[2024-08-21] MEDS: NOVOLOG FLEXPEN 10 UNITS SC (18:31)
[2024-08-21] MEDS: NOVOLOG FLEXPEN-LOW RESISTANCE 2 UNITS SC (18:31)
--- NOTE | 2024-08-21 18:36 | PTCARENOTE ---
Received pt from PACU in bed. VSS. AOx3. Denies pain. Received dinner at this time. Will continue to monitor.
[2024-08-21] MEDS: HEPARIN SC (19:35)
[2024-08-21 21:29] LABS: Glucose - Point of Care 231 mg/dl (70-99)
[2024-08-21] MEDS: COREG PO (21:30)
[2024-08-21] MEDS: LANTUS 0.17 UNITS SC (22:24)
[2024-08-22] MEDS: ZOSYN 50 IV ×4 (02:56→21:28)
[2024-08-22 03:06] VITALS: BP 138/61
[2024-08-22] MEDS: ROXICODONE 5 MG PO (03:09)
[2024-08-22 04:30] LABS: Hematocrit 36.3 % (39.0-52.0); Hemoglobin 12.3 g/dL (13.0-18.0); Mean Corp Hgb Conc. 33.9 g/dL (33.0-37.0); Mean Corpuscular Hgb 29.4 pg (27.0-31.0); Mean Corpuscular Volume 86.6 fL (80.0-94.0); Mean Platelet Volume 10.8 fL (7.4-10.4); Platelet Count 187 10^3/uL (130-400); Red Blood Cell Count 4.19 10^6/uL (4.70-6.10); Red Cell Dist. Width 13.2 % (11.5-14.5); White Blood Cell Count 15.4 10^3/uL (4.8-10.8)
[2024-08-22 04:56] LABS: Blood Urea Nitrogen 29 mg/dl (9-20); Calcium 8.8 mg/dl (8.4-10.2); Carbon Dioxide 23 mmol/L (22-30); Chloride 104 mmol/L (98-107); Estimated Creatinine Clearance 59 ml/min; Glucose 166 mg/dl (70-99); Potassium 4.6 mmol/L (3.5-5.1); Sodium 138 mmol/L (135-145)
[2024-08-22] MEDS: DILAUDID 0.5 MG IV ×3 (05:21→21:30)
--- NOTE | 2024-08-22 05:55 | PTCARENOTE ---
Pt assisted to sitting on side of bed. became lightheaded and dizzy. BP obtained and pt position back into bed.
[2024-08-22 07:44] VITALS: BP 131/64
--- NOTE | 2024-08-22 08:21 | W.PN.ORTHO ---
Today's Communication / Plan
-
Ice with elevation bilateral feet
Deep cultures from surgery pending
Antibiotics per ID (Zosyn)
Nonweightbearing right leg, left leg weightbearing for transfers only
Aspirin/Plavix for DVT prophylaxis
Pain control throughout the weekend
Follow up 2 weeks in office
Assessment
.
Distal Motor Intact: Yes
Dressing:
Clean, dry and intact.
Plan
.
Surgery / Date: R foot TMA and L foot debridement 08/21 [facility]
DVT Prophylaxis: Aspirin
Activity:
Out of bed.
PT/OT
Discharge Plan: Home w/ VN
Subjective
.
.:
Patient resting comfortably.
Vital Signs and Labs
.
Vital Signs and Labs:
Lab Results
08/22/24 04:19
08/22/24 04:19
Temp Pulse Resp BP Pulse Ox
98.1 F 66 18 131/64 98
08/22/24 07:44 08/22/24 07:44 08/22/24 07:44 08/22/24 07:44 08/22/24 07:44
[2024-08-22 08:55] LABS: Glucose - Point of Care 172 mg/dl (70-99)
[2024-08-22] MEDS: NOVOLOG FLEXPEN-LOW RESISTANCE 1 UNITS SC ×2 (09:46→13:04)
[2024-08-22] MEDS: NOVOLOG FLEXPEN 10 UNITS SC ×3 (09:46→17:57)
[2024-08-22] MEDS: ASPIR LOW (ENTERIC COATED) 81 MG PO (09:48)
[2024-08-22] MEDS: MYFORTIC DELAYED REL. 720 MG PO ×2 (09:48→21:28)
[2024-08-22] MEDS: COREG 6.25 MG PO ×2 (09:48→21:30)
[2024-08-22] MEDS: PROCARDIA XL (EXTENDED RELEASE) 30 MG PO (09:49)
[2024-08-22] MEDS: PROGRAF 2 MG PO ×2 (09:49→21:28)
[2024-08-22] MEDS: PLAVIX 75 MG PO (09:49)
[2024-08-22] MEDS: DELTASONE 5 MG PO (09:49)
[2024-08-22] MEDS: LIPITOR 40 MG PO (09:49)
[2024-08-22] MEDS: MAG-TAB SR 84 MG PO (09:49)
[2024-08-22] MEDS: HEPARIN 5000 UNITS SC ×2 (09:50→21:30)
[2024-08-22 11:40] VITALS: BP 124/60
[2024-08-22] MEDS: BACTROBAN 2% OINTMENT TOPICAL (12:26)
[2024-08-22 12:54] LABS: Glucose - Point of Care 180 mg/dl (70-99)
--- NOTE | 2024-08-22 13:36 | W.PN.HOSP.TC ---
Today's Communication/Plan
-
pain control
PT/OT
IV Abx per ID
Assessment / Plan
Assessment / Plan
MRI R foot w/wo: Moderate diffuse edema throughout the dorsal midfoot suggesting cellulitis. No loculated fluid collections. No MR evidence for osteomyelitis. Scattered mild degenerative changes.
RLE U/S: No evidence of DVT of the right lower extremity. Mild right calf edema.
Assessment:
Diabetic right foot infection/cellulitis associated with ruptured blisters right foot with large areas of exposed wound tissue
- Immunosuppressed as below
- MRI without OM
- BCx NGTD
- CAM/TBI: CAM moderately decreased measuring 0.65. TBI 0.65. No evidence for inflow disease. 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 Monophasic continuous pedal waveforms.
- Vascular following; s/p Drug-coated balloon angioplasty to right above-knee popliteal artery (6 mm x 40 mm Lutonix DCB) 08/18
- continue ASA/Plavix
- continue Zosyn, day 3
- s/p R foot TMA 08/21/24. Per podiatry reported, tissue was , non infected. Therefore no deep cultures obtained.
- PT/OT: Nonweightbearing right leg, left leg weightbearing for transfers only
- Wound care following
SHERRY on CKD 2: s/p renal transplant in 10/2022, cont Mycophenolate, prednisone, Prograf. follow Tac level is 5.8. Nephrology following. Cr 1.4 today, encouraged patient to keep up with oral hydration.
Orthostatic Hypotension: compression stockings, Midodrine PRN if still low
Essential Hypertension: cont Coreg, low dose Nifedipine
Hyperlipidemia: cont statin
DM2: a1c 7.4%, cont Lantus/premeal NovoLog, SSI/accu-checks. 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
Anxiety, Insomnia: cont clonazepam
Obesity due to excess calories
FULL/Heparin
Anticipated Discharge: > 48 hours
Subjective/Interval History
-
Date of Service: August 22, 2024
s/p TMA yesterday
pain decently controlled
Objective Data
-
Labs:
Laboratory Results
08/22/24
04:19
WBC 15.4 H
Hgb 12.3 L
Hct 36.3 L
Plt Count 187
Sodium 138
Potassium 4.6
Chloride 104
Carbon Dioxide 23
BUN 29 H
Creatinine 1.4 H
Glucose 166 H
Calcium 8.8
Vital Signs:
Vital Signs
Temp Pulse Resp BP Pulse Ox
98.6 F 64 14 124/60 95
08/22/24 11:40 08/22/24 11:40 08/22/24 11:40 08/22/24 11:40 08/22/24 11:40
I&O
08/21/24 08/22/24 08/23/24
06:59 06:59 06:59
Intake Total 100 / 100 710 / 710
Balance 100 / 100 710 / 710
Physical Exam
-
General: No Apparent Distress
HEENT: Normocephalic and Atraumatic
Respiratory: Negative Wheezes
Cardiac: Regular Rhythm and S1/S2
GI: Soft and Nontender
Genito-urinary: No Costovertebral Tender
Musculoskeletal: No Edema and Other (s/p R TMA with surgical dressings in place)
Neuro: AO x 3
Hematologic / Lymphatic: No Lymphadenopathy
Psych: Calm
Data Reviewed
-
Total Time Spent with Patient (in minutes): 44
Labs: Labs Reviewed by me
[2024-08-22 14:30] VITALS: BP 101/46; BP 102/47
[2024-08-22 15:34] VITALS: BP 149/64
[2024-08-22 17:51] LABS: Glucose - Point of Care 217 mg/dl (70-99)
[2024-08-22] MEDS: NOVOLOG FLEXPEN-LOW RESISTANCE 2 UNITS SC (17:57)
[2024-08-22 21:18] LABS: Glucose - Point of Care 231 mg/dl (70-99)
[2024-08-22] MEDS: LANTUS 0.17 UNITS SC (21:40)
[2024-08-22] MEDS: MIRALAX 17 GRAMS PO (22:31)
[2024-08-22] MEDS: COLACE 100 MG PO (22:32)
[2024-08-22 23:00] VITALS: BP 172/72
[2024-08-23] MEDS: ZOSYN 50 IV ×4 (02:56→19:19)
[2024-08-23 07:15] LABS: Hematocrit 35.8 % (39.0-52.0); Hemoglobin 11.9 g/dL (13.0-18.0); Mean Corp Hgb Conc. 33.2 g/dL (33.0-37.0); Mean Corpuscular Volume 87.3 fL (80.0-94.0); Mean Platelet Volume 10.8 fL (7.4-10.4); Platelet Count 184 10^3/uL (130-400); Red Cell Dist. Width 13.2 % (11.5-14.5); White Blood Cell Count 14.5 10^3/uL (4.8-10.8)
[2024-08-23 07:35] LABS: Blood Urea Nitrogen 28 mg/dl (9-20); Calcium 8.9 mg/dl (8.4-10.2); Carbon Dioxide 24 mmol/L (22-30); Chloride 100 mmol/L (98-107); Estimated Creatinine Clearance 55 ml/min; Glucose 217 mg/dl (70-99); Potassium 4.4 mmol/L (3.5-5.1); Sodium 135 mmol/L (135-145); eGFR 49.16
[2024-08-23 07:44] VITALS: BP 177/71
[2024-08-23 08:48] LABS: Glucose - Point of Care 242 mg/dl (70-99)
[2024-08-23] MEDS: DELTASONE 5 MG PO (09:38)
[2024-08-23] MEDS: MAG-TAB SR 84 MG PO (09:38)
[2024-08-23] MEDS: LIPITOR 40 MG PO (09:38)
[2024-08-23] MEDS: PROCARDIA XL (EXTENDED RELEASE) 30 MG PO (09:38)
[2024-08-23] MEDS: PROGRAF 2 MG PO ×2 (09:38→19:21)
[2024-08-23] MEDS: PLAVIX 75 MG PO (09:38)
[2024-08-23] MEDS: MYFORTIC DELAYED REL. 720 MG PO ×2 (09:38→19:18)
[2024-08-23] MEDS: COREG 6.25 MG PO ×2 (09:38→19:18)
[2024-08-23] MEDS: ASPIR LOW (ENTERIC COATED) 81 MG PO (09:38)
[2024-08-23] MEDS: HEPARIN 5000 UNITS SC ×2 (09:39→19:18)
[2024-08-23] MEDS: NSS 1000 IV (09:41)
[2024-08-23] MEDS: NOVOLOG FLEXPEN 10 UNITS SC ×3 (09:42→17:28)
[2024-08-23] MEDS: NOVOLOG FLEXPEN-LOW RESISTANCE 2 UNITS SC ×2 (09:43→17:29)
[2024-08-23] MEDS: KLONOPIN 1 MG PO (10:56)
[2024-08-23 11:12] VITALS: BP 141/65; PULSE 72; O2SAT 98
[2024-08-23 12:47] LABS: Glucose - Point of Care 271 mg/dl (70-99)
[2024-08-23] MEDS: NOVOLOG FLEXPEN-LOW RESISTANCE 3 UNITS SC (12:52)
--- NOTE | 2024-08-23 14:21 | W.PN.HOSP.TC ---
Today's Communication/Plan
-
IVF
continue Zosyn follow ID recs
PMR consult
Assessment / Plan
Assessment / Plan
MRI R foot w/wo: Moderate diffuse edema throughout the dorsal midfoot suggesting cellulitis. No loculated fluid collections. No MR evidence for osteomyelitis. Scattered mild degenerative changes.
RLE U/S: No evidence of DVT of the right lower extremity. Mild right calf edema.
Assessment:
Diabetic right foot infection/cellulitis associated with ruptured blisters right foot with large areas of exposed wound tissue
- Immunosuppressed as below
- MRI without OM
- BCx NGTD
- CAM/TBI: CAM moderately decreased measuring 0.65. TBI 0.65. No evidence for inflow disease. 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 Monophasic continuous pedal waveforms.
- Vascular following; s/p Drug-coated balloon angioplasty to right above-knee popliteal artery (6 mm x 40 mm Lutonix DCB) 08/18
- continue ASA/Plavix
- continue Zosyn, day 4
- s/p R foot TMA 08/21/24. Per podiatry reported, tissue was , non infected. Therefore no deep cultures obtained.
- PT/OT: Nonweightbearing right leg, left leg weightbearing for transfers only. acute vs SNF. Physiatry consulted.
- Wound care following
SHERRY on CKD 2: s/p renal transplant in 10/2022, cont Mycophenolate, prednisone, Prograf. follow Tac level is 5.8. Nephrology following. Cr 1.5 today, IVF started.
Orthostatic Hypotension: compression stockings, Midodrine PRN if still low
Essential Hypertension: cont Coreg, low dose Nifedipine
Hyperlipidemia: cont statin
DM2: a1c 7.4%, cont Lantus/premeal NovoLog, SSI/accu-checks. 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
Anxiety, Insomnia: cont clonazepam
Obesity due to excess calories
FULL/Heparin
Anticipated Discharge: > 48 hours
Subjective/Interval History
-
Date of Service: August 23, 2024
no new complaints
Objective Data
-
Labs:
Laboratory Results
08/23/24
06:53
WBC 14.5 H
Hgb 11.9 L
Hct 35.8 L
Plt Count 184
Sodium 135
Potassium 4.4
Chloride 100
Carbon Dioxide 24
BUN 28 H
Creatinine 1.5 H
Glucose 217 H
Calcium 8.9
Vital Signs:
Vital Signs
Temp Pulse Resp BP Pulse Ox
98.5 F 62 16 177/71 96
08/23/24 07:44 08/23/24 07:44 08/23/24 07:44 08/23/24 07:44 08/23/24 07:44
I&O
08/22/24 08/23/24 08/24/24
06:59 06:59 06:59
Intake Total 710 / 710 330 / 330
Output Total 600 / 600
Balance 710 / 710 -270 / -270
Physical Exam
-
General: No Apparent Distress
HEENT: Normocephalic and Atraumatic
Respiratory: Negative Wheezes
Cardiac: Regular Rhythm and S1/S2
GI: Soft
Genito-urinary: No Costovertebral Tender
Musculoskeletal: Other (s/p R TMA with surgical dressings in place)
Neuro: AO x 3
Hematologic / Lymphatic: No Lymphadenopathy
Psych: Calm
Data Reviewed
-
Total Time Spent with Patient (in minutes): 41
Labs: Labs Reviewed by me
[2024-08-23 15:56] VITALS: BP 119/89
[2024-08-23 17:35] LABS: Glucose - Point of Care 238 mg/dl (70-99)
[2024-08-23 21:45] LABS: Glucose - Point of Care 245 mg/dl (70-99)
[2024-08-23] MEDS: LANTUS 0.17 UNITS SC (21:46)
[2024-08-23 22:55] VITALS: BP 162/62
[2024-08-24] MEDS: DILAUDID 0.5 MG IV ×2 (01:33→19:32)
[2024-08-24] MEDS: NSS 1000 IV (01:33)
[2024-08-24] MEDS: ZOSYN 50 IV ×2 (01:33→09:02)
[2024-08-24 07:45] LABS: Glucose - Point of Care 184 mg/dl (70-99)
[2024-08-24 07:54] VITALS: BP 157/69
--- NOTE | 2024-08-24 08:38 | PN.DE.MGMTRT ---
Insulin Management
- -
08/24/2024: Diabetes Management follow up
Patient admitted 08/14 c/o R leg weeping wounds, pain and redness. To OR for drug coated balloon angioplasty to R above knee popliteal artery. PMH renal transplant, CVA, HTN, HCL, diabetes, renal failure - dialysis t, TH, Sat, anxiety, depression,
UTI, meningitis, macular degeneration.
Prior to admission was taking Lantus 25 units @ HS with Humalog 10 units AC. States he has been trying to get an appointment with Dr. Soria for diabetes care. A1C on admission 7.4%. Cr 1.3, eGFR 58.37 08/19.
Patient is awake alert and oriented, sitting up in bed, offers no complaints, able to discuss diabetes care.
POD#3 s/p R foot TMA and L foot debridement.
2/2 Premeal glucose elevated, range of 238 to 271 requiring 2-3 additional corrective insulin with meals. FBG 187 this AM
Will increase HS Lantus to 20 units and AC NovoLog to 13 units. Cont low corrective insulin.
Will follow for further needed adjustments.
Diabetes History
- -
Type of Diabetes: 2 requiring insulin
Pre-Admission Diabetes Regimen
Lab Results
Hemoglobin A1c 7.4 % (4.0-5.6) H 08/15/24 07:45
Insulin Pump Settings
IP Diabetes Regimen
08/23/24 08/23/24 08/23/24
08:38 12:36 17:24
POC Glucose 242 H 271 H 238 H
08/23/24 08/24/24
21:33 07:34
POC Glucose 245 H 184 H
Meal type: Lunch
Meal type: Breakfast
Amount consumed: 100%
Amount consumed: 95%
Patient Education
[2024-08-24] MEDS: NOVOLOG FLEXPEN-LOW RESISTANCE 1 UNITS SC (08:58)
[2024-08-24] MEDS: NOVOLOG FLEXPEN 10 UNITS SC (08:58)
[2024-08-24] MEDS: HEPARIN 5000 UNITS SC ×2 (09:02→19:31)
[2024-08-24] MEDS: COREG 6.25 MG PO ×2 (09:02→19:30)
[2024-08-24] MEDS: PROCARDIA XL (EXTENDED RELEASE) 30 MG PO (09:02)
[2024-08-24] MEDS: LIPITOR 40 MG PO (09:02)
[2024-08-24] MEDS: MYFORTIC DELAYED REL. 720 MG PO ×2 (09:03→19:31)
[2024-08-24] MEDS: MAG-TAB SR 84 MG PO (09:03)
[2024-08-24] MEDS: PLAVIX 75 MG PO (09:03)
[2024-08-24] MEDS: DELTASONE 5 MG PO (09:03)
[2024-08-24] MEDS: PROGRAF 2 MG PO ×2 (09:03→19:31)
[2024-08-24] MEDS: ASPIR LOW (ENTERIC COATED) 81 MG PO (09:03)
[2024-08-24] MEDS: ROXICODONE 5 MG PO ×2 (09:04→13:00)
--- NOTE | 2024-08-24 09:06 | W.PN.ID1 ---
Date of Service
Date of Service: August 24, 2024
Today's Communication
Transition Zosyn to cephalexin 500mg po qid through 09/04/24
Assessment / Plan
# Right foot dry gangrene
# Multiple ruptured blisters right foot with large areas of exposed wound tissue
# PAD
- MRI of right foot: no osteo, no abscess
-Arterial duplex/CAM: Right SFA stenosis
- 08/18 s/p RLE endovascular intervention
- 08/21 s/p R TMA, I+D plantar wound to muscle belly.
Per Podiatry, clean margin.
- Transition Zosyn to cephalexin 500mg po qid through 09/04/24
# Renal transplant on tacrolimus, mycophenolate, prednisone
- IV belatacept started 06/2023 and discontinued last month due to possible source of peripheral edema/blisters.
# Conditions prior to admission
Diabetes with neuropathy and nephropathy
ESRD; previously on HD
Living related donor renal transplant 10/31/2022 at [place]
CKD3
HTN
Dyslipidemia
CAD
CVA
YASH on CPAP
Anxiety/depression
Macular degeneration
Narcolepsy
ADHD
Appendectomy
Right AV fistula
TURP
Knee arthroscopic surgery
Chief Complaint
-: Other (wounds)
Subjective / Review of Systems
No complaints
Vital Signs / Physical Exam
Vital Signs
Vital Signs
Temp Pulse Resp BP Pulse Ox
97.6 F 61 18 157/69 96
08/24/24 07:54 08/24/24 07:54 08/24/24 07:54 08/24/24 07:54 08/24/24 07:54
Physical Exam
Constitutional: No Acute Distress and Comfortable
Cardiovascular: Regular Rate and S1/S2
Pulmonary: Clear
Gastrointestinal: Soft, Non Tender and Non Distended
Wound: Other (Right foot dressing dry)
Neurological: AO x 3
Objective Data
Lab Data
ESR 15 mm/hour (0-20) 08/14/24 10:49
Estimated Creat Clear 55 ml/min 08/23/24 06:53
Lactic Acid 1.2 mmol/L (0.7-2.0) 08/14/24 11:49
Total Bilirubin 0.2 mg/dl (0.2-1.3) 08/14/24 10:49
AST 21 U/L (17-59) 08/14/24 10:49
ALT 26 U/L (0-50) 08/14/24 10:49
Alkaline Phosphatase 107 U/L (38-126) 08/14/24 10:49
C-Reactive Protein 17.80 mg/L (0.0-10.00) H 08/14/24 10:49
Most recent labs reviewed.
Micro Results:
08/14/24 11:49 Blood Culture - Final
Blood/Venous No Growth - Final Report
08/14/24 R Foot XRAY: Prominent soft tissue edema within the foot and great toe. No erosions or evidence for osteomyelitis, noting that radiographs are relatively insensitive for detection of this pathology.
[2024-08-24 09:16] LABS: Hematocrit 29.4 % (39.0-52.0); Hemoglobin 9.8 g/dL (13.0-18.0); Mean Corp Hgb Conc. 33.3 g/dL (33.0-37.0); Mean Corpuscular Hgb 29.2 pg (27.0-31.0); Mean Corpuscular Volume 87.5 fL (80.0-94.0); Mean Platelet Volume 11.7 fL (7.4-10.4); Platelet Count 169 10^3/uL (130-400); Red Blood Cell Count 3.36 10^6/uL (4.70-6.10); Red Cell Dist. Width 13.2 % (11.5-14.5); White Blood Cell Count 10.8 10^3/uL (4.8-10.8)
[2024-08-24 10:19] LABS: Blood Urea Nitrogen 19 mg/dl (9-20); Calcium 8.6 mg/dl (8.4-10.2); Carbon Dioxide 22 mmol/L (22-30); Chloride 103 mmol/L (98-107); Estimated Creatinine Clearance 64 ml/min; Glucose 197 mg/dl (70-99); Sodium 135 mmol/L (135-145); eGFR 58.37
[2024-08-24 11:17] LABS: Glucose - Point of Care 239 mg/dl (70-99)
--- NOTE | 2024-08-24 12:36 | W.PN.HOSP.TC ---
Today's Communication/Plan
-
cap IVF
PO Keflex from Zosyn
DC planning to SNF vs AR
Assessment / Plan
Assessment / Plan
MRI R foot w/wo: Moderate diffuse edema throughout the dorsal midfoot suggesting cellulitis. No loculated fluid collections. No MR evidence for osteomyelitis. Scattered mild degenerative changes.
RLE U/S: No evidence of DVT of the right lower extremity. Mild right calf edema.
Assessment:
Diabetic right foot infection/cellulitis associated with ruptured blisters right foot with large areas of exposed wound tissue
- Immunosuppressed as below
- MRI without OM
- BCx NGTD
- CAM/TBI: CAM moderately decreased measuring 0.65. TBI 0.65. No evidence for inflow disease. 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 Monophasic continuous pedal waveforms.
- Vascular following; s/p Drug-coated balloon angioplasty to right above-knee popliteal artery (6 mm x 40 mm Lutonix DCB) 08/18
- continue ASA/Plavix
- Abx: cephalexin 500mg po qid through 09/04/24
- s/p R foot TMA 08/21/24. Per podiatry reported, tissue was , non infected. Therefore no deep cultures obtained.
- PT/OT: Nonweightbearing right leg, left leg weightbearing for transfers only. acute vs SNF. Physiatry consulted.
- Wound care following
SHERRY on CKD 2: s/p renal transplant in 10/2022, cont Mycophenolate, prednisone, Prograf. follow Tac level is 5.8. Nephrology following. Cr 1.3 today. cap IVF.
Orthostatic Hypotension: compression stockings, Midodrine PRN if still low
Essential Hypertension: cont Coreg, low dose Nifedipine
Hyperlipidemia: cont statin
DM2: a1c 7.4%, cont Lantus/premeal NovoLog, SSI/accu-checks. 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
Anxiety, Insomnia: cont clonazepam
Obesity due to excess calories
FULL/Heparin
Anticipated Discharge: 24 - 48 hours
Subjective/Interval History
-
Date of Service: August 24, 2024
no new complaints
Objective Data
-
Labs:
Laboratory Results
08/24/24
08:29
WBC 10.8
Hgb 9.8 L
Hct 29.4 L
Plt Count 169
Sodium 135
Potassium 4.0
Chloride 103
Carbon Dioxide 22
BUN 19
Creatinine 1.3
Glucose 197 H
Calcium 8.6
Vital Signs:
Vital Signs
Temp Pulse Resp BP Pulse Ox
97.6 F 61 18 157/69 96
08/24/24 07:54 08/24/24 07:54 08/24/24 07:54 08/24/24 07:54 08/24/24 07:54
I&O
08/23/24 08/24/24 08/25/24
06:59 06:59 06:59
Intake Total 330 / 330 1280 / 1280 420 / 420
Output Total 600 / 600 350 / 350 400 / 400
Balance -270 / -270 930 / 930 20 / 20
Physical Exam
-
General: No Apparent Distress
HEENT: Normocephalic and Atraumatic
Respiratory: Negative Wheezes
Cardiac: Regular Rhythm and S1/S2
GI: Soft
Genito-urinary: No Costovertebral Tender
Musculoskeletal: Other (s/p R TMA with surgical dressings in place)
Neuro: AO x 3
Hematologic / Lymphatic: No Lymphadenopathy
Psych: Calm
Data Reviewed
-
Total Time Spent with Patient (in minutes): 42
Labs: Labs Reviewed by me
[2024-08-24] MEDS: NOVOLOG FLEXPEN-LOW RESISTANCE 2 UNITS SC (12:49)
[2024-08-24] MEDS: NOVOLOG FLEXPEN 13 UNITS SC ×2 (12:50→17:57)
[2024-08-24] MEDS: KEFLEX 500 MG PO ×3 (12:51→21:44)
[2024-08-24] MEDS: KEFLEX PO (13:03)
--- NOTE | 2024-08-24 14:17 | CM ---
Patient seen bedside.
Discussed d/c plan.
PT to see again today.
Patient interested in acute rehab and skilled if thats not possible.
PMR (P).
referrals placed for acute and skilled.
Plan:acute vs skilled rehab once bed available.
[2024-08-24 15:27] VITALS: BP 132/54
[2024-08-24 16:40] VITALS: BP 132/54; PULSE 66
[2024-08-24 16:52] LABS: Glucose - Point of Care 111 mg/dl (70-99)
[2024-08-24] MEDS: NOVOLOG FLEXPEN-LOW RESISTANCE SC (17:57)
[2024-08-24 21:39] LABS: Glucose - Point of Care 157 mg/dl (70-99)
[2024-08-24] MEDS: LANTUS 0.2 UNITS SC (21:44)
[2024-08-24 23:00] VITALS: BP 169/80
[2024-08-25] MEDS: ROXICODONE 5 MG PO ×5 (03:21→19:42)
[2024-08-25] MEDS: TYLENOL 650 MG PO (03:21)
[2024-08-25 06:37] LABS: Hematocrit 31.2 % (39.0-52.0); Hemoglobin 10.3 g/dL (13.0-18.0); Mean Corpuscular Hgb 28.8 pg (27.0-31.0); Mean Corpuscular Volume 87.2 fL (80.0-94.0); Mean Platelet Volume 11.1 fL (7.4-10.4); Platelet Count 159 10^3/uL (130-400); Red Blood Cell Count 3.58 10^6/uL (4.70-6.10); Red Cell Dist. Width 13.2 % (11.5-14.5); White Blood Cell Count 10.5 10^3/uL (4.8-10.8)
[2024-08-25 06:57] LABS: Blood Urea Nitrogen 17 mg/dl (9-20); Calcium 8.6 mg/dl (8.4-10.2); Carbon Dioxide 23 mmol/L (22-30); Chloride 105 mmol/L (98-107); Estimated Creatinine Clearance 75 ml/min; Glucose 155 mg/dl (70-99); Potassium 4.3 mmol/L (3.5-5.1); Sodium 139 mmol/L (135-145); eGFR > 60.00
--- NOTE | 2024-08-25 07:28 | PN.DE.MGMTRT ---
Insulin Management
- -
08/25/2024: Diabetes Management follow up
Patient admitted 08/14 c/o R leg weeping wounds, pain and redness. To OR for drug coated balloon angioplasty to R above knee popliteal artery. PMH renal transplant, CVA, HTN, HCL, diabetes, renal failure - dialysis t, TH, Sat, anxiety, depression,
UTI, meningitis, macular degeneration.
Prior to admission was taking Lantus 25 units @ HS with Humalog 10 units AC. States he has been trying to get an appointment with Dr. Soria for diabetes care. A1C on admission 7.4%. Cr 1.3, eGFR 58.37 08/19.
Patient is awake alert and oriented, sitting up in bed, offers no complaints, able to discuss diabetes care.
POD#4 s/p R foot TMA and L foot debridement.
2/ AC novolog increased to 13 units novolog AC and hs lantus to 20 units. Premeal glucose elevated, range of 111 to 239 requiring 2 additional corrective insulin with lunch. FBG 155 this AM
Will continue HS Lantus 20 units and AC NovoLog to 13 units with low corrective insulin.
Will follow for further needed adjustments.
Diabetes History
- -
Type of Diabetes: 2 requiring insulin
Pre-Admission Diabetes Regimen
08/24/24 08/25/24
08:29 06:17
Creatinine 1.3 1.1
Lab Results
Hemoglobin A1c 7.4 % (4.0-5.6) H 08/15/24 07:45
Insulin Pump Settings
IP Diabetes Regimen
08/24/24 08/24/24 08/24/24
07:34 08:29 11:05
Glucose 197 H
POC Glucose 184 H 239 H
08/24/24 08/24/24 08/25/24
16:41 21:27 06:17
Glucose 155 H
POC Glucose 111 H 157 H
Meal type: Breakfast
Amount consumed: 100%
Patient Education
[2024-08-25] MEDS: MYFORTIC DELAYED REL. 720 MG PO ×2 (07:49→19:05)
[2024-08-25] MEDS: PROCARDIA XL (EXTENDED RELEASE) 30 MG PO (07:49)
[2024-08-25] MEDS: LIPITOR 40 MG PO (07:49)
[2024-08-25] MEDS: COREG 6.25 MG PO ×2 (07:49→19:04)
[2024-08-25] MEDS: DELTASONE 5 MG PO (07:49)
[2024-08-25 07:50] VITALS: BP 158/88
[2024-08-25] MEDS: ASPIR LOW (ENTERIC COATED) 81 MG PO (07:50)
[2024-08-25] MEDS: MAG-TAB SR 84 MG PO (07:50)
[2024-08-25] MEDS: PROGRAF 2 MG PO ×2 (07:50→19:04)
[2024-08-25] MEDS: KEFLEX 500 MG PO ×3 (07:50→17:05)
[2024-08-25] MEDS: PLAVIX 75 MG PO (07:50)
[2024-08-25 08:09] LABS: Glucose - Point of Care 175 mg/dl (70-99)
--- NOTE | 2024-08-25 08:45 | CON.MD ---
Documented by User: Taylor Laboy PA-C 08/25/24 21:13
Consultation - Medical
-
Referring Provider:�
Chief Complaint:�Ambulatory Dysfunction, s/p TMA
�
History of Present Illness:�Patient is a 74-year-old male with PMH of (CVA, CAD, YASH on CPAP, Narcolepsy, ADHD, anxiety, depression, renal transplant, hypertension, hyperlipidemia, insulin-dependent diabetes with neuropathy and nephropathy ) who
presented from wound care center for concerns for diabetic foot infection. Patient was seen here in 08/05 with waxing and waning swelling to the right leg which was associated with some blisters on his right talus. He was sent home with Bactrim and
followed up with wound care. He presented to the hospital with right foot dry gangrene associated with multiple ruptured blisters of the right foot with large areas of exposed with tissue. MRI of the right foot no osteomyelitis, no abscess.
Arterial duplex/CAM�right SFA stenosis. 08/18 status post right lower extremity endovascular intervention. 08/21�status post right foot transmetatarsal amputation I&D plantar wound to muscle belly. Currently on no weightbearing to the right lower
extremity and heel weightbearing on the left for transfers only. Currently on Zosyn to be transitioned to cephalexin 500mg po qid through 09/04/24 per ID
Past Medical History:�CVA, hypertension, hyper lipidemia, insulin-dependent diabetes, renal failure (dialysis and Saturday, right arm fistula) anxiety, depression, diabetic neuropathy, UTI, macular degeneration, diabetic nephropathy, narcolepsy
Procedure History:�Appendectomy, right AV fistula, renal transplant October 2022, TURP, Knee arthroscopic surgery
Family History:�cancer
�
Social History:��
Functional Level Premorbidly:�Independent with all activities�
Functional Level Currently:�ambulates 70 feet x 2 with min assist, [id number] assist, bed mobility�supervision, eating�independent, grooming�set up, lower extremity self-care�supervision,
�
Tobacco:�Denies�
Alcohol:�drinks a glass of wine 3 times a week�
Drug use:�Denies�
�
Lives with: With family
24-hour assistance available:�
Number of floors:�One-story home
# steps to enter:�2
# steps to second floor: None
Potential First floor set up:�Yes
Driving:�No
Occupation:�Retired
Allergies:�
Allergy/AdvReac Type Severity Reaction Status Date / Time
No Known Allergies Allergy Verified 08/14/24 09:32
�
Review of Systems:�
Constitutional: (x) Normal _
Eye: (x) Normal _
Ear/Nose/Throat: (x) Normal _
Respiratory: (x) Normal _
Cardiovascular: (x) abNormal _orthostatic
Gastrointestinal: (x) Normal _
Genitourinary: (x) abNormal _ sherry on ckd
Musculoskeletal: (x) Normal _right surgery
Integumentary: (x) Normal _
Neurologic: (x) Normal _
Psychiatric: (x) Normal _
Endocrine: (x) abNormal _DM
Hematologic/Lymphatic: (x) Normal _
Allergic/Immunologic: (x) Normal _
�
Medications:�
Active Current Visit Medication List
Category Date Time Status
Acetaminophen Tylenol Med 08/14/24 17:49 Active
650 mg PO Q4HPRN PRN
Aspirin Low Dose EC [Aspir Low (Enteric Coated)] Med 08/15/24 08:00 Active
81 mg PO DAILY
Atorvastatin [Lipitor] Med 08/15/24 08:00 Active
40 mg PO DAILY
Carvedilol [Coreg] Med 08/14/24 20:00 Active
6.25 mg PO BID
Cephalexin Monohydrate [Keflex] Med 08/24/24 12:00 Active
500 mg PO QID
Clonazepam [Klonopin] Med 08/14/24 17:49 Active
1 mg PO BIDPRN PRN
Clopidogrel Bisulfate [Plavix] Med 08/19/24 08:00 Active
75 mg PO DAILY
Dextrose 50%-Water [Dextrose 50% Syringe] Med 08/14/24 17:49 Active
12.5 grams IV [id number] PRN
Docusate Sodium [Colace] Med 08/22/24 21:55 Active
100 mg PO BIDPRN PRN
Flush (0.9% Sodium Chloride) [Flush (Nss)] Med 08/14/24 17:00 Active
See Dose Instructions IV PER PROTOCOL
Glucagon [GlucaGen] Med 08/14/24 17:49 Active
1 mg IM PRN PRN
HYDROmorphone [Dilaudid] Med 08/14/24 17:49 Active
0.5 mg IV Q4HPRN PRN
Heparin Med 08/14/24 20:00 Active
5,000 units SC Q12
Insulin Aspart Corrective Low [Novolog Flexpen-Low Med 08/19/24 07:30 Active
Resistance]
See Protocol SC AC
Insulin Aspart Pen [Novolog Flexpen] Med 08/24/24 08:51 Active
13 units SC AC
Insulin Glargine Lantus [Lantus] 20 units Med 08/24/24 08:51 Active
Subcutaneous Insulin Syringe [Syringe-Insulin] 0 unit
SC HS
Magnesium l-Lactate [Mag-Tab Sr] Med 08/15/24 08:00 Active
84 mg PO DAILY
Mycophenolic Acid Dr [Myfortic Delayed Rel.] Med 08/14/24 20:00 Active
720 mg PO BID
NIFEdipine EXTENDED RELEASE [Procardia Xl (Extended Med 08/20/24 08:00 Active
Release)]
30 mg PO DAILY
Oxycodone [Roxicodone] Med 08/18/24 14:23 Active
5 mg PO Q4HPRN PRN
Polyethylene Glycol Powder [Miralax] Med 08/22/24 21:59 Active
17 grams PO DAILYPRN PRN
Prednisone [Deltasone] Med 08/15/24 08:00 Active
5 mg PO DAILY
Tacrolimus [Prograf] Med 08/14/24 20:00 Active
2 mg PO Q12
vibegron Med 08/15/24 08:00 Pending
See Dose Instructions PO DAILY
Vitals:�
Temp Pulse Resp BP Pulse Ox
98.1 F 66 17 132/54 96
08/24/24 15:27 08/24/24 15:27 08/24/24 15:27 08/24/24 15:27 08/24/24 07:54
Height 6 ft
Actual Weight 102.965 kg
Body Mass Index (BMI) 30.8
�
Physical Exam:�
General Appearance/Observation: Well-developed, well-nourished individual in no apparent distress.�
Pain/Comfort Assessment: right foot
Mood/Affect: Appropriate�
�
Integumentary/Operative Site:�Right foot and left foot wrapped in ursula
�� Pressure Ulcer Evaluation:
��
�� Other Type of Wound: absent�
��
�
Eyes: Conjunctiva/Lids: normal���� Pupils: pupils equal round and reactive to light and Accommodation�
Ears/Nose/Throat: oral mucosa moist,� throat clear.������������ Lips/Teeth/Gums: normal�
Neck: No muscle spasm or tenderness�
Cardiovascular: Heart: regular, no murmur�
Pulses: dorsalis pedis unable to assess through ursula wrap
Respiratory: Respiratory Effort/Chest Expansion: normal������� Auscultation: Clear to auscultation bilaterally�
Gastrointestinal: abdomen not tender, no distension, normal abdominal bowel sounds
Genitourinary: No [place]�
Extremities:�Edema: feet�Cyanosis: None�Trophic�changes: n/a
�
Neurology Exam:
Orientation: Alert, Oriented to self, Time, Place�
Memory: Intact for immediate medical concerns
Comprehension: Intact
Two step command: Intact
Naming: Intact
Cranial Nerves:
�� CNII:�Pupillary light reflex: Intact����Visual Field: Intact
�� CN III, IV, : Extraocular muscles: Intact�
�� CN V:�Facial Sensation�at�Forehead: Intact,�Maxilla: Intact,�Mandible: Intact
�� CN VII:�Facial movement: Symmetric
�� CN VIII:�Hearing: Normal
�� CN IX/X:�Speech & swallow: Normal,�Position of Uvula: Midline
Sensory:
�� Light touch: Intact in bilateral upper and lower extremities
��
�
Reflexes:
�� Biceps: 2+ bilaterally
�� Brachioradialis: 2+ bilaterally
�� Triceps: 2+ bilaterally
�� Patellar: 2+ bilaterally
�� Achilles: NT
�� Babinski: NT
�� Clonus: NT
�� Carir: Negative bilaterally�
Cerebellar: Dysmetria/Ataxia: None�
Musculoskeletal:
Motor: (Manual muscle scale 0-5)�
Muscle SA EF WE EE FF FA HF KE DF EHL PF
Right� 5 5 5 5 5 5 4 4 4 - 3
Left 5 5 5 5 5 5 4 4 4 3 4
�
Tone: Normal in all extremities�
Range of Motion: Passively within normal limits in all extremities�
�
Lab Results
Labs
WBC 10.5 10^3/uL (4.8-10.8) 08/25/24 06:17
RBC 3.58 10^6/uL (4.70-6.10) L 08/25/24 06:17
Hgb 10.3 g/dL (13.0-18.0) L 08/25/24 06:17
Hct 31.2 % (39.0-52.0) L 08/25/24 06:17
MCV 87.2 fL (80.0-94.0) 08/25/24 06:17
MCH 28.8 pg (27.0-31.0) 08/25/24 06:17
MCHC 33.0 g/dL (33.0-37.0) 08/25/24 06:17
RDW 13.2 % (11.5-14.5) 08/25/24 06:17
Plt Count 159 10^3/uL (130-400) 08/25/24 06:17
MPV 11.1 fL (7.4-10.4) H 08/25/24 06:17
Abs Immat Gran (auto) 0.0 10^3/uL (0-0.05) 08/14/24 10:49
Absolute Neuts (auto) 7.6 10^3/uL (1.4-6.5) H 08/14/24 10:49
Absolute Lymphs (auto) 2.1 10^3/uL (1.2-3.4) 08/14/24 10:49
Absolute Monos (auto) 1.0 10^3/uL (0.1-0.6) H 08/14/24 10:49
Absolute Eos (auto) 0.2 10^3/uL (0-0.7) 08/14/24 10:49
Absolute Basos (auto) 0.0 10^3/uL (0-0.2) 08/14/24 10:49
Immature Gran % 0.4 % (0-0.5) 08/14/24 10:49
Neutrophils % 69.2 % (42.2-75.2) 08/14/24 10:49
Lymphocytes % 19.0 % (20.5-51.1) L 08/14/24 10:49
Monocytes % 9.5 % (1.7-9.3) H 08/14/24 10:49
Eosinophils % 1.5 % (0-6) 08/14/24 10:49
Basophils % 0.4 % (0-2) 08/14/24 10:49
Nucleated RBC % 0 % (-) 08/14/24 10:49
ESR 15 mm/hour (0-20) 08/14/24 10:49
Sodium 139 mmol/L (135-145) 08/25/24 06:17
Potassium 4.3 mmol/L (3.5-5.1) 08/25/24 06:17
Chloride 105 mmol/L (98-107) 08/25/24 06:17
Carbon Dioxide 23 mmol/L (22-30) 08/25/24 06:17
BUN 17 mg/dl (9-20) 08/25/24 06:17
Creatinine 1.1 mg/dL (0.7-1.3) 08/25/24 06:17
Estimated Creat Clear 75 ml/min 08/25/24 06:17
eGFR > 60.00 08/25/24 06:17
Glucose 155 mg/dl (70-99) H 08/25/24 06:17
Hemoglobin A1c 7.4 % (4.0-5.6) H 08/15/24 07:45
Lactic Acid 1.2 mmol/L (0.7-2.0) 08/14/24 11:49
Calcium 8.6 mg/dl (8.4-10.2) 08/25/24 06:17
Total Bilirubin 0.2 mg/dl (0.2-1.3) 08/14/24 10:49
AST 21 U/L (17-59) 08/14/24 10:49
ALT 26 U/L (0-50) 08/14/24 10:49
Alkaline Phosphatase 107 U/L (38-126) 08/14/24 10:49
C-Reactive Protein 17.80 mg/L (0.0-10.00) H 08/14/24 10:49
Total Protein 7.0 g/dl (6.3-8.2) 08/14/24 10:49
Albumin 4.6 g/dl (3.5-5.0) 08/14/24 10:49
Tacrolimus Cancelled 08/19/24 08:08
Tacrolimus (LC/MS/MS) 08/19/24 08:08
POC Glucose 175 mg/dl (70-99) H 08/25/24 07:57
�
�
Diagnostic Results: as per HPI
MRI R foot w/wo: Moderate diffuse edema throughout the dorsal midfoot suggesting cellulitis. No loculated fluid collections. No MR evidence for osteomyelitis. Scattered mild degenerative changes.
RLE U/S: No evidence of DVT of the right lower extremity. Mild right calf edema.
08/14/24 R Foot XRAY: Prominent soft tissue edema within the foot and great toe. No erosions or evidence for osteomyelitis, noting that radiographs are relatively insensitive for detection of this pathology.
Assessment
Plan
PT/OT to increase independence with ADLs, improve balance, coordination, endurance, strength, mobility, community reintegration, decreased burden of care on others and family education.
Right foot transmetatarsal amputation, left I&D plantar wound to muscle belly: Zosyn to be transition to Keflex p.o.
Right foot dry gangrene:
HTN: Coreg, low dose Nifedipine
Orthostatic hypotension: compression stockings, Midodrine PRN if still low
HLD: Statin
Coronary artery disease : Aspirin, statin, beta-norman
DM II: Accu-Cheks, insulin sliding scale, metformin, aspart, lantus.
Hypothyroidism: levothyroxine
SHERRY on CKD 2:s/p renal transplant in 10/2022. IV belatacept started 06/2023 and discontinued last month due to possible source of peripheral edema/blisters.Cont Mycophenolate, prednisone, Prograf. follow Tac level is 5.8. Nephrology following.
YASH:on CPAP
Anemia: Likely multifactorial. Continue to monitor.
Psych: Anxiety, insomnia. Clonazepam
Skin: monitor for pressure sores/rashes/lesions.
Pain: acetaminophen or oxycodone as needed.
Bowel: Colace and Senna, PRN bisacodyl.
Bladder: Time void, PVRs, PRN straight cath.
GI Prophylaxis: recommend Pantoprazole
DVT Prophylaxis: Mechanical and Lovenox
Pulmonary: Incentive spirometry
Obesity: Continue to job counselor patient about diet adjustments to control obesity. Body habitus and increased force to move body and extremities causes further difficulty with functional tasks.
Safety: Continue to reinforce assistance with all transfers.
Code Status: Full code
Dispo (date/plan/equipment needs): Home with family care. Social history reviewed.
Functional and Medical Goals: Modified Independent with ADL�s, ambulation, transfers
Discharge Destination: SNF
Summary of recommendations:
Safety: Continue to reinforce assistance with all transfers.
Thank you for allowing me to care for your patient. Please contact me with any questions or concerns.
�

Documented by User: Daniel Peck MD 08/25/24 23:37
Consultation - Medical
-
Referring Provider:�Dr. Cas Navas
Chief Complaint:�Ambulatory Dysfunction, s/p TMA
�
History of Present Illness:�Patient is a 74-year-old male with PMH of (CVA, CAD, YASH on CPAP, Narcolepsy, ADHD, anxiety, depression, renal transplant, hypertension, hyperlipidemia, insulin-dependent diabetes with neuropathy and nephropathy ) who
presented from wound care center for concerns for diabetic foot infection. Patient was seen here in 08/05 with waxing and waning swelling to the right leg which was associated with some blisters on his right talus. He was sent home with Bactrim and
followed up with wound care. He presented to the hospital with right foot dry gangrene associated with multiple ruptured blisters of the right foot with large areas of exposed with tissue. MRI of the right foot no osteomyelitis, no abscess.
Arterial duplex/CAM�right SFA stenosis. 08/18 status post right lower extremity endovascular intervention. 08/21�status post right foot transmetatarsal amputation I&D plantar wound to muscle belly. Currently on no weightbearing to the right lower
extremity and heel weightbearing on the left for transfers only. Currently on Zosyn to be transitioned to cephalexin 500mg po qid through 09/04/24 per ID
Past Medical History:�CVA, hypertension, hyper lipidemia, insulin-dependent diabetes, renal failure (dialysis and Saturday, right arm fistula) anxiety, depression, diabetic neuropathy, UTI, macular degeneration, diabetic nephropathy, narcolepsy
Procedure History:�Appendectomy, right AV fistula, renal transplant October 2022, TURP, Knee arthroscopic surgery
Family History:�cancer
�
Social History:��
Functional Level Premorbidly:�Independent with all activities�
Functional Level Currently:�ambulates 70 feet x 2 with min assist, [id number] assist, bed mobility�supervision, eating�independent, grooming�set up, lower extremity self-care�supervision,
�
Tobacco:�Denies�
Alcohol:�drinks a glass of wine 3 times a week�
Drug use:�Denies�
�
Lives with: With family
24-hour assistance available:�
Number of floors:�One-story home
# steps to enter:�2
# steps to second floor: None
Potential First floor set up:�Yes
Driving:�No
Occupation:�Retired
Allergies:�
Allergy/AdvReac Type Severity Reaction Status Date / Time
No Known Allergies Allergy Verified 08/14/24 09:32
�
Review of Systems:�
Constitutional: (x) abNormal _fatigue
Eye: (x) Normal _
Ear/Nose/Throat: (x) Normal _
Respiratory: (x) Normal _
Cardiovascular: (x) abNormal _orthostatic
Gastrointestinal: (x) Normal _
Genitourinary: (x) abNormal _ sherry on ckd
Musculoskeletal: (x) Normal _right surgery
Integumentary: (x) Normal _
Neurologic: (x) Normal _
Psychiatric: (x) Normal _
Endocrine: (x) abNormal _DM
Hematologic/Lymphatic: (x) Normal _
Allergic/Immunologic: (x) Normal _
�
Medications:�
Active Current Visit Medication List
Category Date Time Status
Acetaminophen Tylenol Med 08/14/24 17:49 Active
650 mg PO Q4HPRN PRN
Aspirin Low Dose EC [Aspir Low (Enteric Coated)] Med 08/15/24 08:00 Active
81 mg PO DAILY
Atorvastatin [Lipitor] Med 08/15/24 08:00 Active
40 mg PO DAILY
Carvedilol [Coreg] Med 08/14/24 20:00 Active
6.25 mg PO BID
Cephalexin Monohydrate [Keflex] Med 08/24/24 12:00 Active
500 mg PO QID
Clonazepam [Klonopin] Med 08/14/24 17:49 Active
1 mg PO BIDPRN PRN
Clopidogrel Bisulfate [Plavix] Med 08/19/24 08:00 Active
75 mg PO DAILY
Dextrose 50%-Water [Dextrose 50% Syringe] Med 08/14/24 17:49 Active
12.5 grams IV [id number] PRN
Docusate Sodium [Colace] Med 08/22/24 21:55 Active
100 mg PO BIDPRN PRN
Flush (0.9% Sodium Chloride) [Flush (Nss)] Med 08/14/24 17:00 Active
See Dose Instructions IV PER PROTOCOL
Glucagon [GlucaGen] Med 08/14/24 17:49 Active
1 mg IM PRN PRN
HYDROmorphone [Dilaudid] Med 08/14/24 17:49 Active
0.5 mg IV Q4HPRN PRN
Heparin Med 08/14/24 20:00 Active
5,000 units SC Q12
Insulin Aspart Corrective Low [Novolog Flexpen-Low Med 08/19/24 07:30 Active
Resistance]
See Protocol SC AC
Insulin Aspart Pen [Novolog Flexpen] Med 08/24/24 08:51 Active
13 units SC AC
Insulin Glargine Lantus [Lantus] 20 units Med 08/24/24 08:51 Active
Subcutaneous Insulin Syringe [Syringe-Insulin] 0 unit
SC HS
Magnesium l-Lactate [Mag-Tab Sr] Med 08/15/24 08:00 Active
84 mg PO DAILY
Mycophenolic Acid Dr [Myfortic Delayed Rel.] Med 08/14/24 20:00 Active
720 mg PO BID
NIFEdipine EXTENDED RELEASE [Procardia Xl (Extended Med 08/20/24 08:00 Active
Release)]
30 mg PO DAILY
Oxycodone [Roxicodone] Med 08/18/24 14:23 Active
5 mg PO Q4HPRN PRN
Polyethylene Glycol Powder [Miralax] Med 08/22/24 21:59 Active
17 grams PO DAILYPRN PRN
Prednisone [Deltasone] Med 08/15/24 08:00 Active
5 mg PO DAILY
Tacrolimus [Prograf] Med 08/14/24 20:00 Active
2 mg PO Q12
vibegron Med 08/15/24 08:00 Pending
See Dose Instructions PO DAILY
Vitals:�
Temp Pulse Resp BP Pulse Ox
98.1 F 66 17 132/54 96
08/24/24 15:27 08/24/24 15:27 08/24/24 15:27 08/24/24 15:27 08/24/24 07:54
Height 6 ft
Actual Weight 102.965 kg
Body Mass Index (BMI) 30.8
�
Physical Exam:�
General Appearance/Observation: Well-developed, well-nourished male in no apparent distress.�
Pain/Comfort Assessment: right foot
Mood/Affect: Appropriate�
�
Integumentary/Operative Site:�Right transmetatarsal surgical incision with URSULA wrap��
�
Eyes: Conjunctiva/Lids: normal���� Pupils: pupils equal round and reactive to light and Accommodation�
Ears/Nose/Throat: oral mucosa moist,� throat clear.������������ Lips/Teeth/Gums: normal�
Cardiovascular: Heart: regular, no murmur�
Pulses: dorsalis pedis unable to assess through ursula wrap
Respiratory: Respiratory Effort/Chest Expansion: normal������� Auscultation: Clear to auscultation bilaterally�
Gastrointestinal: abdomen not tender, no distension, normal abdominal bowel sounds
Genitourinary: No [place]�
Extremities:�Edema: feet�Cyanosis: None�Trophic�changes: n/a
�
Neurology Exam:
Orientation: Alert, Oriented to self, Time, Place�
Memory: Intact for immediate medical concerns
Comprehension: Intact
Two step command: Intact
Cranial Nerves:
�� CNII:�Pupillary light reflex: Intact����Visual Field: Intact
�� CN III, IV, : Extraocular muscles: Intact�
�� CN V:�Facial Sensation�at�Forehead: Intact,�Maxilla: Intact,�Mandible: Intact
�� CN VII:�Facial movement: Symmetric
�� CN VIII:�Hearing: Normal
�� CN IX/X:�Speech & swallow: Normal,�Position of Uvula: Midline
Sensory:
�� Light touch: decreased in stocking/glove distribution bilaterally.
��
�
Reflexes:
�� Biceps: 2+ bilaterally
�� Brachioradialis: 2+ bilaterally
�� Triceps: 2+ bilaterally
�� Patellar: 2+ bilaterally
�� Achilles: 0
�� Babinski: NT on left
�� Clonus: NT
�� Carri: Negative bilaterally�
Cerebellar: Dysmetria/Ataxia: None�
Musculoskeletal: Motor: (Manual muscle scale 0-5)�
Muscle SA EF WE EE FF FA HF KE DF EHL PF
Right� 5 5 5 4 5 3 4 4 4 - 3
Left 5 5 5 4 5 3 4 4 4 3 4
�- Has significant muscle atrophy in bilateral hands consistent with severe neuropathy.
Tone: Normal in all extremities�
Range of Motion: Passively within normal limits in all extremities�
�
Lab Results
Labs
WBC 10.5 10^3/uL (4.8-10.8) 08/25/24 06:17
RBC 3.58 10^6/uL (4.70-6.10) L 08/25/24 06:17
Hgb 10.3 g/dL (13.0-18.0) L 08/25/24 06:17
Hct 31.2 % (39.0-52.0) L 08/25/24 06:17
MCV 87.2 fL (80.0-94.0) 08/25/24 06:17
MCH 28.8 pg (27.0-31.0) 08/25/24 06:17
MCHC 33.0 g/dL (33.0-37.0) 08/25/24 06:17
RDW 13.2 % (11.5-14.5) 08/25/24 06:17
Plt Count 159 10^3/uL (130-400) 08/25/24 06:17
MPV 11.1 fL (7.4-10.4) H 08/25/24 06:17
Abs Immat Gran (auto) 0.0 10^3/uL (0-0.05) 08/14/24 10:49
Absolute Neuts (auto) 7.6 10^3/uL (1.4-6.5) H 08/14/24 10:49
Absolute Lymphs (auto) 2.1 10^3/uL (1.2-3.4) 08/14/24 10:49
Absolute Monos (auto) 1.0 10^3/uL (0.1-0.6) H 08/14/24 10:49
Absolute Eos (auto) 0.2 10^3/uL (0-0.7) 08/14/24 10:49
Absolute Basos (auto) 0.0 10^3/uL (0-0.2) 08/14/24 10:49
Immature Gran % 0.4 % (0-0.5) 08/14/24 10:49
Neutrophils % 69.2 % (42.2-75.2) 08/14/24 10:49
Lymphocytes % 19.0 % (20.5-51.1) L 08/14/24 10:49
Monocytes % 9.5 % (1.7-9.3) H 08/14/24 10:49
Eosinophils % 1.5 % (0-6) 08/14/24 10:49
Basophils % 0.4 % (0-2) 08/14/24 10:49
Nucleated RBC % 0 % (-) 08/14/24 10:49
ESR 15 mm/hour (0-20) 08/14/24 10:49
Sodium 139 mmol/L (135-145) 08/25/24 06:17
Potassium 4.3 mmol/L (3.5-5.1) 08/25/24 06:17
Chloride 105 mmol/L (98-107) 08/25/24 06:17
Carbon Dioxide 23 mmol/L (22-30) 08/25/24 06:17
BUN 17 mg/dl (9-20) 08/25/24 06:17
Creatinine 1.1 mg/dL (0.7-1.3) 08/25/24 06:17
Estimated Creat Clear 75 ml/min 08/25/24 06:17
eGFR > 60.00 08/25/24 06:17
Glucose 155 mg/dl (70-99) H 08/25/24 06:17
Hemoglobin A1c 7.4 % (4.0-5.6) H 08/15/24 07:45
Lactic Acid 1.2 mmol/L (0.7-2.0) 08/14/24 11:49
Calcium 8.6 mg/dl (8.4-10.2) 08/25/24 06:17
Total Bilirubin 0.2 mg/dl (0.2-1.3) 08/14/24 10:49
AST 21 U/L (17-59) 08/14/24 10:49
ALT 26 U/L (0-50) 08/14/24 10:49
Alkaline Phosphatase 107 U/L (38-126) 08/14/24 10:49
C-Reactive Protein 17.80 mg/L (0.0-10.00) H 08/14/24 10:49
Total Protein 7.0 g/dl (6.3-8.2) 08/14/24 10:49
Albumin 4.6 g/dl (3.5-5.0) 08/14/24 10:49
Tacrolimus Cancelled 08/19/24 08:08
Tacrolimus (LC/MS/MS) 08/19/24 08:08
POC Glucose 175 mg/dl (70-99) H 08/25/24 07:57
�
�
Diagnostic Results: as per HPI
MRI R foot w/wo: Moderate diffuse edema throughout the dorsal midfoot suggesting cellulitis. No loculated fluid collections. No MR evidence for osteomyelitis. Scattered mild degenerative changes.
RLE U/S: No evidence of DVT of the right lower extremity. Mild right calf edema.
08/14/24 R Foot XRAY: Prominent soft tissue edema within the foot and great toe. No erosions or evidence for osteomyelitis, noting that radiographs are relatively insensitive for detection of this pathology.
Assessment
74-year-old M with PMH of (CVA, hypertension, hyper lipidemia, insulin-dependent diabetes, renal failure (dialysis and Saturday, right arm fistula) anxiety, depression, diabetic neuropathy, UTI, macular degeneration, diabetic nephropathy,
narcolepsy) with 08/21/24 Right transmetatarsal amputation as a result of a diabetic foot infection with no weightbearing to the right lower extremity and heel weightbearing on the left for transfers only resulting
in ADL and ambulatory dysfunction.
Plan
PT/OT to increase independence with ADLs, improve balance, coordination, endurance, strength, mobility, community reintegration, decreased burden of care on others and family education.
Right foot transmetatarsal amputation, left I&D plantar wound to muscle belly: Zosyn to be transition to Keflex p.o. Non weight bearing.
- Provided extensive education about amputtion, neuropathy, skin care, high risk of further amputations. All questions answered. Can see [facility] amputation specialist as outpatient for toe-filler.
Left foot: weight bearing through heel only for transfers.
HTN: Coreg, low dose Nifedipine
Orthostatic hypotension: compression stockings if sized appropriately, Midodrine PRN if still low. monitor for supine HTN.
HLD: Statin
Coronary artery disease: Aspirin, statin, beta-norman
DM II: Accu-Cheks, insulin sliding scale, metformin, aspart, lantus.
Hypothyroidism: levothyroxine
SHERRY on CKD 2:s/p renal transplant in 10/2022. IV belatacept started 06/2023 and discontinued last month due to possible source of peripheral edema/blisters.Cont Mycophenolate, prednisone, Prograf. follow Tac level is 5.8. Nephrology following.
YASH:CPAP
Anemia: Likely multifactorial. Continue to monitor.
Psych: Anxiety, insomnia. Clonazepam
Skin: monitor for pressure sores/rashes/lesions.
Pain: acetaminophen or oxycodone as needed.
Bowel: Colace and Senna, PRN bisacodyl.
Bladder: Time void, PVRs, PRN straight cath.
GI Prophylaxis: recommend Pantoprazole
DVT Prophylaxis: Mechanical and Lovenox
Pulmonary: Incentive spirometry
Obesity: Continue to job counselor patient about diet adjustments to control obesity. Body habitus and increased force to move body and extremities causes further difficulty with functional tasks.
Safety: Continue to reinforce assistance with all transfers.
Code Status: Full code
Dispo (date/plan/equipment needs): Home with family care. Social history reviewed.
Functional and Medical Goals: Modified Independent with ADL�s, ambulation, transfers
Discharge Destination: SNF
Attending Statement:
I saw and examined the patient today.� Reviewed care plan with patient, therapy, nursing, and physician undertaker assistant.� I agree with the above subjective and physical exam, and plan as documented by JIM Laboy with adjustments made as necessary. A
total of 60 minutes were spent with the patient preparing for the evaluation, obtaining history, performing examination and evaluation, counseling, data review, case management, care coordination, service order dispatcher chief, and EMR documentation.
Summary of recommendations:
Right foot transmetatarsal amputation, left I&D plantar wound to muscle belly: Zosyn to be transition to Keflex p.o. Non weight bearing.
- Provided extensive education about amputtion, neuropathy, skin care, high risk of further amputations. All questions answered. Can see [facility] amputation specialist as outpatient for toe-filler.
Left foot: weight bearing through heel only for transfers.
Orthostatic hypotension: compression stockings if sized appropriately, Midodrine PRN if still low. monitor for supine HTN.
Thank you for allowing me to care for your patient. Please contact me with any questions or concerns.
�
[2024-08-25] MEDS: HEPARIN 5000 UNITS SC ×2 (10:06→19:05)
[2024-08-25] MEDS: NOVOLOG FLEXPEN 13 UNITS SC ×3 (10:07→18:05)
[2024-08-25] MEDS: NOVOLOG FLEXPEN-LOW RESISTANCE 1 UNITS SC ×2 (10:07→18:05)
--- NOTE | 2024-08-25 10:55 | CM ---
Addendum entered by Sarah Hayes 08/25/24 11:45:
PT recommending skilled rehab, referral sent.
Original Note:
Spoke with patient bedside.
Agreeable to additional referrals for skilled rehab and may want to go home.
PT working with patient now.
Possible home with [facility], will need equipment on d/c and possible WC van.
Per PT will need WC with removable side arm and removable leg rests, and a drop arm commode.
[facility] liaison updated.
Plan: skilled vs home with [facility]
[2024-08-25 11:14] LABS: Glucose - Point of Care 181 mg/dl (70-99)
[2024-08-25 12:30] VITALS: BP 135/60
[2024-08-25] MEDS: NOVOLOG FLEXPEN-LOW RESISTANCE SC (12:58)
--- NOTE | 2024-08-25 13:06 | W.PN.HOSP.TC ---
Today's Communication/Plan
-
dc today if SNF bed available
Assessment / Plan
Assessment / Plan
MRI R foot w/wo: Moderate diffuse edema throughout the dorsal midfoot suggesting cellulitis. No loculated fluid collections. No MR evidence for osteomyelitis. Scattered mild degenerative changes.
RLE U/S: No evidence of DVT of the right lower extremity. Mild right calf edema.
Assessment:
Diabetic right foot infection/cellulitis associated with ruptured blisters right foot with large areas of exposed wound tissue
- Immunosuppressed as below
- MRI without OM
- BCx NGTD
- CAM/TBI: CAM moderately decreased measuring 0.65. TBI 0.65. No evidence for inflow disease. 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 Monophasic continuous pedal waveforms.
- Vascular following; s/p Drug-coated balloon angioplasty to right above-knee popliteal artery (6 mm x 40 mm Lutonix DCB) 08/18
- continue ASA/Plavix
- Abx: cephalexin 500mg po qid through 09/04/24
- s/p R foot TMA 08/21/24. Per podiatry reported, tissue was , non infected. Therefore no deep cultures obtained.
- PT/OT: Nonweightbearing right leg, left leg weightbearing for transfers only. acute vs SNF. Physiatry consulted.
- Wound care following
SHERRY on CKD 2: s/p renal transplant in 10/2022, cont Mycophenolate, prednisone, Prograf. follow Tac level is 5.8. Nephrology following. Cr 1.3 today. cap IVF.
Orthostatic Hypotension: compression stockings, Midodrine PRN if still low
Essential Hypertension: cont Coreg, low dose Nifedipine
Hyperlipidemia: cont statin
DM2: a1c 7.4%, cont Lantus/premeal NovoLog, SSI/accu-checks. 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
Anxiety, Insomnia: cont clonazepam
Obesity due to excess calories
FULL/Heparin
More than 30 minutes spent in discharge including
Final examination of the patient
Summarizing hospital stay
Instructions for continuing care to all relevant caregivers
Preparation of discharge records, prescriptions, and referral forms
Total time spent (in minutes): 41
Anticipated Discharge: Today
Subjective/Interval History
-
Date of Service: August 25, 2024
no new complaints
awaiting SNF (denied from [facility])
Objective Data
-
Labs:
Laboratory Results
08/25/24
06:17
WBC 10.5
Hgb 10.3 L
Hct 31.2 L
Plt Count 159
Sodium 139
Potassium 4.3
Chloride 105
Carbon Dioxide 23
BUN 17
Creatinine 1.1
Glucose 155 H
Calcium 8.6
Vital Signs:
Vital Signs
Temp Pulse Resp BP Pulse Ox
98.4 F 56 18 158/88 96
08/25/24 07:50 08/25/24 07:50 08/25/24 07:50 08/25/24 07:50 08/25/24 07:50
I&O
08/24/24 08/25/24 08/26/24
06:59 06:59 06:59
Intake Total 1280 / 1280 820 / 820
Output Total 350 / 350 850 / 850
Balance 930 / 930 -30 / -30
Physical Exam
-
General: No Apparent Distress
HEENT: Normocephalic and Atraumatic
Respiratory: Negative Wheezes
Cardiac: Regular Rhythm and S1/S2
GI: Soft
Genito-urinary: No Costovertebral Tender
Musculoskeletal: Other (s/p R TMA with surgical dressings in place)
Neuro: AO x 3
Hematologic / Lymphatic: No Lymphadenopathy
Psych: Calm
Data Reviewed
-
Total Time Spent with Patient (in minutes): 41
Labs: Labs Reviewed by me
[2024-08-25 13:10] LABS: Glucose - Point of Care 110 mg/dl (70-99)
--- NOTE | 2024-08-25 14:29 | CM ---
Addendum entered by Janeth Luna 08/25/24 14:42:
1800 transport
Original Note:
CM reviewed pt with Dr Navas- ready for dc
PMR completed and pt denied at [facility]
Add'l SNF referrals sent as also no beds at [facility] and [facility]
Bedside meeting with pt- [facility]
Pt selected [facility]
IMM verbally completed with pt
Medical necessity completed and BLS arranged
CM offered call to family- he declined as he already alerted them
Discharge Disposition- [facility] via BLS
Phone- [phone] Fax- [phone]
--- NOTE | 2024-08-25 14:42 | W.DS.TRANS ---
DC Summary - [employer]
-
Discharge Instructions:
Discharge Diagnosis/Procedures R foot wounds s/p TMA 08/21, s/p Drug-coated
balloon angioplasty to right above-knee
popliteal artery on 08/18. hypertension requiring
med titrations
Diet As tolerated,Diabetic, Carb Controlled
Activity No strenuous activity
Bathing Restrictions OK to Shower
Others Tests Ultrasound appointment: 09/18 @ 11am
Instructions:
Stand-Alone Forms: DC Instr - Vascular OR
Changes to Home Medications: No
Discharge Medications:
DC Medications w/original date entered in [employer]
carvedilol 6.25 mg tablet 6.25 mg PO BID Heart Disease/Condition 07/23/23
prednisone 5 mg tablet 5 mg PO DAILY Anti-Inflammatory 07/23/23
tacrolimus 1 mg capsule, immediate-release (Prograf) 2 mg PO Q12H renal transplant 07/23/23
vibegron 75 mg tablet 75 mg PO DAILY Urinary Issue 07/23/23
aspirin 81 mg tablet,delayed release 81 mg PO DAILY Blood Clot Prevention/Tx 08/14/24
atorvastatin 40 mg tablet (Lipitor) 40 mg PO DAILY High Cholesterol 08/14/24
magnesium oxide 400 mg PO DAILY Supplement 08/14/24
mycophenolate sodium 180 mg tablet,delayed release 720 mg PO BID IMMUNOSUPPRESSANT 08/14/24
omega-3 acid ethyl esters 1 gram capsule (Lovaza) 2 cap PO BID Supplement 08/14/24
clopidogrel 75 mg tablet 75 mg PO DAILY #90 tabs 08/18/24
acetaminophen 325 mg tablet 650 mg (2 x 325 mg) PO Q4HPRN PRN mild pain or temp > 100.4 F #100 tabs 08/25/24
cephalexin 500 mg capsule 500 mg PO QID #40 caps 08/25/24
clonazepam 1 mg tablet 1 mg PO BIDPRN PRN anxiety #4 tabs 08/25/24
insulin glargine 100 unit/mL (3 mL) subcutaneous pen (Lantus Solostar U-100 Insulin) 20 unit (0.2 mL) SC HS diabetes #0 mL 08/25/24
insulin lispro 100 unit/mL subcutaneous pen (Humalog KwikPen (U-100) Insulin) 13 unit (0.13 mL) SC AC Diabetes #0 mL 08/25/24
nifedipine 30 mg tablet,extended release 30 mg PO DAILY #30 tabs 08/25/24
oxycodone 5 mg tablet 5 mg PO Q4HPRN PRN moderate pain #10 tabs 08/25/24
Home Medication Changes
Pending Results: No
Total time spent discharging patient (in min): 41
[2024-08-25 15:30] VITALS: BP 151/65
[2024-08-25] MEDS: FLUAD (65 yr+) 2024-2025 FORMULA 0.5 ML IM (16:51)
[2024-08-25 17:40] LABS: Glucose - Point of Care 182 mg/dl (70-99)
[2024-08-25 19:04] VITALS: BP 132/56
--- NOTE | 2024-08-25 20:01 | PTCARENOTE ---
pt d/c to rehab. belongs sent along. 2000meds administered. report given to facility by karissa gary
== END 2024-08-25 20:01 | DRG 240 ==
LOC: 1 ACUTE 13:52
PROVIDERS: Physician Assistant; Registered Nurse; Specialist; ADMITTING PHYSICIAN Hospitalist; ATTENDING PHYSICIAN Internal Medicine; CONSULT PHYSICIAN Internal Medicine; CONSULT PHYSICIAN Internal Medicine Infectious Disease; CONSULT PHYSICIAN Physical Medicine & Rehabilitation; CONSULT PHYSICIAN Student in an Organized Health Care Education/Training Program; CONSULT PHYSICIAN Surgery Vascular Surgery; EMERGENCY PHYSICIAN Emergency Medicine; FAMILY PHYSICIAN Internal Medicine
PROC: B4101ZZ Fluoroscopy of Abdominal Aorta using Low Osmolar Contrast (ICD-10-PCS; 2024-08-18)
PROC: 047M3Z1 Dilation of Right Popliteal Artery using Drug-Coated Balloon, Percutaneous Approach (ICD-10-PCS; 2024-08-18)
PROC: B41C1ZZ Fluoroscopy of Pelvic Arteries using Low Osmolar Contrast (ICD-10-PCS; 2024-08-18)
PROC: B41F1ZZ Fluoroscopy of Right Lower Extremity Arteries using Low Osmolar Contrast (ICD-10-PCS; 2024-08-18)
PROC: 0KBV0ZZ Excision of Right Foot Muscle, Open Approach (ICD-10-PCS; 2024-08-21)
PROC: 0Y6M0ZC Detachment at Right Foot, Partial 3rd Ray, Open Approach (ICD-10-PCS; 2024-08-21)
PROC: 0Y6M0ZD Detachment at Right Foot, Partial 4th Ray, Open Approach (ICD-10-PCS; 2024-08-21)
PROC: 0Y6M0ZF Detachment at Right Foot, Partial 5th Ray, Open Approach (ICD-10-PCS; 2024-08-21)
PROC: 0KBW0ZZ Excision of Left Foot Muscle, Open Approach (ICD-10-PCS; 2024-08-21)
PROC: 0Y6M0Z9 Detachment at Right Foot, Partial 1st Ray, Open Approach (ICD-10-PCS; 2024-08-21)
PROC: 0Y6M0ZB Detachment at Right Foot, Partial 2nd Ray, Open Approach (ICD-10-PCS; 2024-08-21)
PROC: 3E02340 Introduction of Influenza Vaccine into Muscle, Percutaneous Approach (ICD-10-PCS; 2024-08-25)
DX: E11.52 Type 2 diabetes mellitus with diabetic peripheral angiopathy with gangrene (principal); D84.821 Immunodeficiency due to drugs; L03.115 Cellulitis of right lower limb; N25.81 Secondary hyperparathyroidism of renal origin; I70.261 Atherosclerosis of native arteries of extremities with gangrene, right leg; L97.425 Non-pressure chronic ulcer of left heel and midfoot with muscle involvement without evidence of necrosis; T86.12 Kidney transplant failure; L97.513 Non-pressure chronic ulcer of other part of right foot with necrosis of muscle; E11.621 Type 2 diabetes mellitus with foot ulcer; I70.244 Atherosclerosis of native arteries of left leg with ulceration of heel and midfoot; Y83.0 Surgical operation with transplant of whole organ as the cause of abnormal reaction of the patient, or of later complication, without mention of misadventure at the time of the procedure; Y92.239 Unspecified place in hospital as the place of occurrence of the external cause; E78.00 Pure hypercholesterolemia, unspecified; E11.22 Type 2 diabetes mellitus with diabetic chronic kidney disease; E11.40 Type 2 diabetes mellitus with diabetic neuropathy, unspecified; F32.A Depression, unspecified; F41.9 Anxiety disorder, unspecified; G47.419 Narcolepsy without cataplexy; H35.30 Unspecified macular degeneration; I12.9 Hypertensive chronic kidney disease with stage 1 through stage 4 chronic kidney disease, or unspecified chronic kidney disease; N18.2 Chronic kidney disease, stage 2 (mild); G47.33 Obstructive sleep apnea (adult) (pediatric); G47.00 Insomnia, unspecified; I95.1 Orthostatic hypotension; I25.10 Atherosclerotic heart disease of native coronary artery without angina pectoris; F90.9 Attention-deficit hyperactivity disorder, unspecified type; E66.09 Other obesity due to excess calories; E11.319 Type 2 diabetes mellitus with unspecified diabetic retinopathy without macular edema; N52.9 Male erectile dysfunction, unspecified; N40.1 Benign prostatic hyperplasia with lower urinary tract symptoms; R33.9 Retention of urine, unspecified; E03.9 Hypothyroidism, unspecified; D64.9 Anemia, unspecified; R26.2 Difficulty in walking, not elsewhere classified; Z23 Encounter for immunization; Z79.52 Long term (current) use of systemic steroids; Z79.82 Long term (current) use of aspirin; Z87.440 Personal history of urinary (tract) infections; Z87.891 Personal history of nicotine dependence; Z79.4 Long term (current) use of insulin; Z86.73 Personal history of transient ischemic attack (TIA), and cerebral infarction without residual deficits; Z68.30 Body mass index [BMI] 30.0-30.9, adult; Z90.79 Acquired absence of other genital organ(s); Z90.49 Acquired absence of other specified parts of digestive tract; Z79.624 Long term (current) use of inhibitors of nucleotide synthesis; Z79.890 Hormone replacement therapy
CPT/HCPCS: 88305; 37224; 73630; 73720; 75625; 75716; 80048; 80053; 80197; 82962; 83036; 83605; 85025; 85027; 85652; 86140; 87040; 90662; 93306; 93922; 93925; 93971; 96365; 96366; 96367; 96375; 97162; 97166; 97530; 97542; 99213; 99285; A9575; C1769; C1894; C2623; G0008; Q9967

== ENCOUNTER 2024-09-26 03:30 | Inpatient (IN) | payer MEDICARE, OTHER, SELFPAY ==
[2024-09-25 21:19] VITALS: BP 140/57
[2024-09-25] MEDS: TYLENOL 1000 MG PO (21:23)
[2024-09-25 21:36] LABS: % Basophils 0.4 % (0-2); % Eosinophils 1.1 % (0-6); % Immature Granulocytes 0.7 % (0-0.5); % Lymphocytes 6.1 % (20.5-51.1); % Monocytes 6.9 % (1.7-9.3); % Neutrophils 84.8 % (42.2-75.2); Absolute Basophils 0.1 10^3/uL (0-0.2); Absolute Eosinophils 0.2 10^3/uL (0-0.7); Absolute Immature Granulocytes 0.1 10^3/uL (0-0.05); Absolute Lymphocytes 1.1 10^3/uL (1.2-3.4); Absolute Monocytes 1.2 10^3/uL (0.1-0.6); Absolute Neutrophils 14.7 10^3/uL (1.4-6.5); Hematocrit 23.4 % (39.0-52.0); Hemoglobin 7.4 g/dL (13.0-18.0); Mean Corp Hgb Conc. 31.6 g/dL (33.0-37.0); Mean Corpuscular Hgb 29.6 pg (27.0-31.0); Mean Corpuscular Volume 93.6 fL (80.0-94.0); Mean Platelet Volume 10.9 fL (7.4-10.4); Nucleated Red Blood Cells % 0.4 % (-); Platelet Count 260 10^3/uL (130-400); White Blood Cell Count 17.3 10^3/uL (4.8-10.8)
[2024-09-25 21:48] LABS: Lactic Acid 1.5 mmol/L (0.7-2.0)
--- NOTE | 2024-09-25 21:52 | ED.GENMED ---
History of Present Illness
<Fausto Sahni PA-C - Last Filed: 09/26/24 01:35>
General
Chief Complaint: Weakness
Source: patient
Exam Limitations: none
Time Seen by Provider: 09/25/24 21:27
History of Present Illness
History of Present Illness:
74-year-old male insulin-dependent diabetic presents from home via EMS with confusion and weakness. Over 1 month ago he had a transmetatarsal amputation of his right foot. Postoperatively he developed a diabetic foot infection was admitted to the [facility]. He is not currently on an antibiotic. He was just seen by the photographic spotter today and had his dressing changed. He notes he is short of breath. His son who is in the room states that he has been confused today. No chest pain. No
vomiting. No other complaints
Past History
<Fausto Sahni PA-C - Last Filed: 09/26/24 01:35>
Past History
ED Past Medical History: CVA, HTN, Hypercholesterolemia, IDDM, Renal failure (Dialysis and saturday, Right arm fistula), Psychiatric ( anxiety, depression) and Other (Diabetic neuropathy, meningitis,UTI, macular degeneration, diabetic
nephropathy, Narcolepsy, )
ED Past Surgical History: Appendectomy and Other (Right AV fistula. Renal transplant October 2022)
Social History
Tobacco: Former smoker
Alcohol: None
Drug: None
Personal:
Living: with family
Employment: Employed
Family History
Family History: Diabetes
Phy Exam
<Fausto Sahni PA-C - Last Filed: 09/26/24 01:35>
Physical Exam
Physical Exam:
General: Well-developed male no acute respiratory distress
HEENT: Normocephalic atraumatic
Heart: Regular rate and rhythm
Lungs: Clear no wheeze
Abdomen is soft nontender nondistended
Extremities: No cyanosis
Skin: Right foot examined. There is a well-appearing surgical incision without surrounding erythema or fluctuance
Course
<Fausto Sahni PA-C - Last Filed: 09/26/24 01:35>
Orders/Labs/Results
Orders:
Orders
09/25/24 21:16
Electrocardiogram (*1) Urgent
Reason for Study: Tachycardia
EKG- Treatment ONCE
09/25/24 21:18
Acetaminophen [Tylenol] 1,000 mg PO NOW STA
09/25/24 21:24
COVID-19 Antigen Urgent
Source: Nasal Swab
Complete Blood Count/With Diff Urgent
Comprehensive Metabolic Panel Urgent
Lactic Acid Urgent
Influenza A+B Rapid Molecular Urgent
OWEN Source: Nasal Swab
Specimen Description:
09/25/24 21:43
CR Chest - 2 Views Urgent
Comment:
Reason For Exam: fever, hypoxia
09/25/24 21:44
Urinalysis Reflex To Culture Urgent
Date Specimen was Collected: 09/26/24
Time Specimen was Collected: 01:02
09/25/24 21:55
Blood Culture Q30M
OWEN Source: Blood/Venous
Specimen Description:
Blood Culture Q30M
OWEN Source: Blood/Venous
Specimen Description:
09/26/24 01:03
Urine Microscopic Reflex Cult Urgent
Urine Culture Urgent
OWEN Source: U
Specimen Description:
Date Specimen was Collected: 09/26/24
Time Specimen was Collected: 01:02
09/26/24 01:19
Piperacillin/Tazo 3.375 Gram [Zosyn] 3.375 gram in 50 ml IV NOW
09/26/24 01:20
Famotidine [Pepcid] 20 mg IV NOW STA
09/26/24 01:26
Pantoprazole [Protonix IV] 80 mg IV NOW STA
09/26/24 02:09
Vancomycin [Vancocin] 2,000 mg 0.9% Sodium Chloride 500 ml [Nss] 500 ml IV NOW
Abnormal Lab Results
09/25/24 09/26/24
21:24 01:03
WBC 17.3 H 10^3/uL
(4.8-10.8)
RBC 2.50 L 10^6/uL
(4.70-6.10)
Hgb 7.4 L g/dL
(13.0-18.0)
Hct 23.4 L %
(39.0-52.0)
MCHC 31.6 L g/dL
(33.0-37.0)
RDW 17.0 H %
(11.5-14.5)
MPV 10.9 H fL
(7.4-10.4)
Abs Immat Gran (auto) 0.1 H 10^3/uL
(0-0.05)
Absolute Neuts (auto) 14.7 H 10^3/uL
(1.4-6.5)
Absolute Lymphs (auto) 1.1 L 10^3/uL
(1.2-3.4)
Absolute Monos (auto) 1.2 H 10^3/uL
(0.1-0.6)
Immature Gran % 0.7 H %
(0-0.5)
Neutrophils % 84.8 H %
(42.2-75.2)
Lymphocytes % 6.1 L %
(20.5-51.1)
BUN 24 H mg/dl
(9-20)
Creatinine 1.4 H mg/dL
(0.7-1.3)
Glucose 100 H mg/dl
(70-99)
AST 16 L U/L
(17-59)
Total Protein 6.0 L g/dl
(6.3-8.2)
Ur Occult Blood Reflex 2+ A
(Negative)
Leukocyte Esterase Rfl 3+ A
(Negative)
Urine RBC 3-6 A /HPF
(0-2)
Urine WBC (Reflex) 60-70 A /HPF
(0-5)
Urine Bacteria (Reflex) Many A
(Negative)
Urine Glucose 1+ A
(Negative)
Urine Albumin (Reflex) 2+ A
(Neg - Trace)
09/25/24 21:24
09/25/24 21:24
Vital Signs
Initial and Last Documented VS:
Initial Vital Signs
Temp Pulse Resp Pulse Ox
39.2 C H 82 12 95
09/25/24 21:17 09/25/24 21:17 09/25/24 21:17 09/25/24 21:17
Last Documented Vital Signs
Temp Pulse Resp BP Pulse Ox
39.2 C H 82 25 102/85 99
09/25/24 21:17 09/26/24 02:15 09/26/24 02:15 09/26/24 02:00 09/26/24 02:15
<Trent Arellano MD - Last Filed: 09/26/24 02:35>
Orders/Labs/Results
Orders:
Orders
09/25/24 21:16
Electrocardiogram (*1) Urgent
Reason for Study: Tachycardia
EKG- Treatment ONCE
09/25/24 21:18
Acetaminophen [Tylenol] 1,000 mg PO NOW STA
09/25/24 21:24
COVID-19 Antigen Urgent
Source: Nasal Swab
Complete Blood Count/With Diff Urgent
Comprehensive Metabolic Panel Urgent
Lactic Acid Urgent
Influenza A+B Rapid Molecular Urgent
OWEN Source: Nasal Swab
Specimen Description:
09/25/24 21:43
CR Chest - 2 Views Urgent
Comment:
Reason For Exam: fever, hypoxia
09/25/24 21:44
Urinalysis Reflex To Culture Urgent
Date Specimen was Collected: 09/26/24
Time Specimen was Collected: 01:02
09/25/24 21:55
Blood Culture Q30M
OWEN Source: Blood/Venous
Specimen Description:
Blood Culture Q30M
OWEN Source: Blood/Venous
Specimen Description:
09/26/24 01:03
Urine Microscopic Reflex Cult Urgent
Urine Culture Urgent
OWEN Source: U
Specimen Description:
Date Specimen was Collected: 09/26/24
Time Specimen was Collected: 01:02
09/26/24 01:19
Piperacillin/Tazo 3.375 Gram [Zosyn] 3.375 gram in 50 ml IV NOW
09/26/24 01:20
Famotidine [Pepcid] 20 mg IV NOW STA
09/26/24 01:26
Pantoprazole [Protonix IV] 80 mg IV NOW STA
09/26/24 02:09
Vancomycin [Vancocin] 2,000 mg 0.9% Sodium Chloride 500 ml [Nss] 500 ml IV NOW
Abnormal Lab Results
09/25/24 09/26/24
21:24 01:03
WBC 17.3 H 10^3/uL
(4.8-10.8)
RBC 2.50 L 10^6/uL
(4.70-6.10)
Hgb 7.4 L g/dL
(13.0-18.0)
Hct 23.4 L %
(39.0-52.0)
MCHC 31.6 L g/dL
(33.0-37.0)
RDW 17.0 H %
(11.5-14.5)
MPV 10.9 H fL
(7.4-10.4)
Abs Immat Gran (auto) 0.1 H 10^3/uL
(0-0.05)
Absolute Neuts (auto) 14.7 H 10^3/uL
(1.4-6.5)
Absolute Lymphs (auto) 1.1 L 10^3/uL
(1.2-3.4)
Absolute Monos (auto) 1.2 H 10^3/uL
(0.1-0.6)
Immature Gran % 0.7 H %
(0-0.5)
Neutrophils % 84.8 H %
(42.2-75.2)
Lymphocytes % 6.1 L %
(20.5-51.1)
BUN 24 H mg/dl
(9-20)
Creatinine 1.4 H mg/dL
(0.7-1.3)
Glucose 100 H mg/dl
(70-99)
AST 16 L U/L
(17-59)
Total Protein 6.0 L g/dl
(6.3-8.2)
Ur Occult Blood Reflex 2+ A
(Negative)
Leukocyte Esterase Rfl 3+ A
(Negative)
Urine RBC 3-6 A /HPF
(0-2)
Urine WBC (Reflex) 60-70 A /HPF
(0-5)
Urine Bacteria (Reflex) Many A
(Negative)
Urine Glucose 1+ A
(Negative)
Urine Albumin (Reflex) 2+ A
(Neg - Trace)
09/25/24 21:24
09/25/24 21:24
Vital Signs
Initial and Last Documented VS:
Initial Vital Signs
Temp Pulse Resp Pulse Ox
39.2 C H 82 12 95
09/25/24 21:17 09/25/24 21:17 09/25/24 21:17 09/25/24 21:17
Last Documented Vital Signs
Temp Pulse Resp BP Pulse Ox
39.2 C H 82 25 102/85 99
09/25/24 21:17 09/26/24 02:15 09/26/24 02:15 09/26/24 02:00 09/26/24 02:15
<Fausto Sahni PA-C - Last Filed: 09/26/24 01:35>
MDM/Problems Addressed
Differential Diagnosis Includes:
Patient here with weakness and confusion. Temperature at triage 102.6. Concern for underlying infectious source. Recent right foot diabetic infection however clinically no obvious sign of infection in the foot. Chest x-ray COVID flu blood
cultures lactic acid ordered. Fluids and Tylenol ordered.
<Fausto Sahni PA-C - Last Filed: 09/26/24 01:35>
*Critical Care Note
Total Time (30-74mins, 75-104mins- exclusive of procedures): Not Applicable
<Fausto Sahni PA-C - Last Filed: 09/26/24 01:35>
Update Note
Update Note:
COVID and flu negative. Chest x-ray without acute finding. White blood cell count is 17.3. Hemoglobin is 7.4. Rectal exam was performed. Stool is black in color heme positive. Protonix ordered. Concern for bacteremia. Urinalysis suggestive
of UTI. Vancomycin Zosyn ordered. Fluids ordered. Consent signed for blood transfusion if needed. Poke with emergency room attending admitted to hospitalist
ED Attending Note
<Fausto Sahni PA-C - Last Filed: 09/26/24 01:35>
-
Portions of this chart may have been created with voice recognition software.� Occasional wrong word or��sound alike� substitutions may have occurred due to the inherent limitations of voice recognition software.
<Trent Arellano MD - Last Filed: 09/26/24 02:35>
ED Attending Note
Patient seen and examined by attending physician: Yes
ED Attending Note:
I have seen and evaluated the patient with a [id number] encounter. I have spoken to the advance practicer provider and involved in the medical history, the physical exam, medical decision making.
Evaluation and management service: agree unless noted differently below.
Results interpretation: agree unless noted differently below.
Focused HPI: 74-year-old male with history as noted significant for renal transplant, recent right foot amputation with subsequent infection; presents today for evaluation of fatigue and fevers/chills, lethargy. He says he has also had some dark
loose stools for about a week. No vomiting. Denies any cough or shortness of breath, chest pain. Denies abdominal pain. He has had some increased urinary frequency.
Physical exam: Awake alert. Afebrile but otherwise normal vitals. No cardiac rubs gallops or murmurs appreciated. Lungs sound clear. Abdomen soft nontender. Right midfoot amputation with clean appearing incision no erythema, warmth, drainage or
other signs of infection.
Medical Decision Makin-year-old male presents with fever, chills, lethargy also reporting dark loose stools for the past week. Regarding fever: His lab work showed leukocytosis and urinalysis was positive for infection. Chest x-ray shows no
pneumonia, viral swabs negative. Covered with antibiotics. Regarding dark stools�heme positive on PA exam. He has acute on chronic anemia with a hemoglobin of 7.4. Treat with IV PPI. Admit for trending of hemoglobin, monitoring of bleeding,
continued antibiotics.
Discharge Plan
Departure
Patient Disposition: Admit
Date of Disposition: 09/26/24
Time of Disposition: 01:35
Presentation/result/management discussed w/ accepting MD/DO: Hospitalist
Discharge Problem:
Sepsis, Acute UTI, Acute GI bleeding
Prescriptions:
No Action
carvedilol 6.25 mg Tablet
6.25 mg PO BID
prednisone 5 mg Tablet
5 mg PO DAILY
tacrolimus [Prograf] 1 mg Capsule
2 mg PO Q12H
vibegron 75 mg Tablet
75 mg PO DAILY
mycophenolate sodium 180 mg tablet,delayed release (DR/EC)
720 mg PO BID
atorvastatin [Lipitor] 40 mg Tablet
40 mg PO DAILY
aspirin 81 mg Tablet,Delayed Release (Dr/Ec)
81 mg PO DAILY
omega-3 acid ethyl esters [Lovaza] 1 gram Capsule
2 cap PO BID
magnesium oxide 400 mg magnesium Tablet
400 mg PO DAILY
clopidogrel 75 mg Tablet
75 mg PO DAILY Qty: 90 0RF
acetaminophen 325 mg Tablet
650 mg PO Q4HPRN PRN (Reason: mild pain or temp > 100.4 F) Qty: 100 0RF
nifedipine 30 mg Tablet Extended Release
30 mg PO DAILY Qty: 30 0RF
cephalexin 500 mg Capsule
500 mg PO QID Qty: 40 0RF
clonazepam 1 MG tablet
1 mg PO BIDPRN PRN (Reason: anxiety) Qty: 4 0RF
insulin lispro [Humalog KwikPen Insulin] 100 UNIT/ML insulin pen
13 unit SC AC Qty: 0 0RF
insulin glargine [Lantus Solostar U-100 Insulin] 100 unit/mL (3 mL) Insulin Pen
20 unit SC HS Qty: 0 0RF
Referrals:
Ben Suarez DO [Family Provider] -
Interventions
Interventions:
*Risk Screen - Suicide Last Done: 09/25/24 21:17
*General Assessment Last Done: 09/25/24 21:17
*Neglect/Abuse Screening Last Done: 09/25/24 21:17
ED- Cardiac Assessment Last Done: 09/25/24 22:09
ED- Neurological Assessment Last Done: 09/25/24 22:09
ED- Pulmonary Assessment Last Done: 09/25/24 22:09
Discharge Date and Time
Print Language: KOREAN
[2024-09-25 21:55] LABS: ALT (SGPT) 16 U/L (0-50); AST (SGOT) 16 U/L (17-59); Albumin 4.1 g/dl (3.5-5.0); Alkaline Phosphatase 80 U/L (38-126); Blood Urea Nitrogen 24 mg/dl (9-20); Calcium 8.9 mg/dl (8.4-10.2); Carbon Dioxide 25 mmol/L (22-30); Chloride 101 mmol/L (98-107); Glucose 100 mg/dl (70-99); Potassium 4.7 mmol/L (3.5-5.1); Sodium 135 mmol/L (135-145); Total Bilirubin 0.6 mg/dl (0.2-1.3)
[2024-09-25 21:59] LABS: COVID-19 Antigen Negative (Negative)
[2024-09-25 22:13] VITALS: BP 130/55
[2024-09-25 23:00] VITALS: BP 102/48
[2024-09-26] VITALS (34 sets, daily range): BP systolic 90–158; BP diastolic 42–85; BMI 30.3; BMI 31.0
[2024-09-26 01:15] LABS: Urine Albumin 2+ (Neg - Trace); Urine Bilirubin Negative (Negative); Urine Character Clear (Clear); Urine Color Yellow; Urine Glucose 1+ (Negative); Urine Ketone Negative (Negative); Urine Leukocyte 3+ (Negative); Urine Nitrite Negative (Negative); Urine Occult Blood 2+ (Negative); Urine Specific Gravity 1.015 (<1.030); Urine Urobilinogen Negative (Neg - 1+)
[2024-09-26 01:24] LABS: Urine Squamous Cell None seen /LPF (Few); Urine White Cell 60-70 /HPF (0-5)
[2024-09-26 01:25] LABS: Urine Bacteria Many (Negative)
[2024-09-26] MEDS: PROTONIX IV 80 MG IV (01:37)
[2024-09-26] MEDS: ZOSYN 50 IV ×4 (01:43→22:56)
[2024-09-26] MEDS: VANCOCIN 540 MG IV (02:34)
--- NOTE | 2024-09-26 03:23 | HPS.HSE ---
Family Physician
-
Family Physician: Ben Suarez
Chief Complaint
-
Confusion / Weakness
History of Present Illness
Patient is a 74y M with PMH significant for hypertension, DM-II, renal transplant and recent R transmet amputation who presents to ED complaining of confusion, weakness and fatigue. History obtained primarily form review of prior records and
discussion with ED staff. Patient presented c/o several days of generalized weakness and fatigue. He denies any pain. He denies any urinary complaints or GI complaints. Patient had a long and complicated hospitalization from 08/14/24 - 08/25/24
during which he underwent revascularization to the RLE, R transmetatarsal amputation and b/l foot wound debridements. He was discharged on oral abx to continue through 09/04 which he has since completed. He has been followed by Podiatry and was
seen there this AM. His wounds have been healing well.
Family noted that the patient seemed to be confused / disoriented today.
At the time of my examination in the ED, patient is having rigors / chills. He answers questions with one word - occasionally nonsensical - answers.
Medical History
Past Medical History
Past Medical History: Reports Other
Additional Past Medical History:
ESRD s/p Renal Transplant
DM-II with Neuropathy and Nephropathy
ASCVD (CAD, PAD)
Hypertension
Orthostatic Hypotension
Autonomic Insufficiency
Narcolepsy
Depression
YASH
Past Surgical History: Reports Other
Additional Past Surgical History:
R Popliteal Artery Angioplasty (08/18/24)
Right Transmetatarsal Amputation (08/21/24)
Bilateral Foot Wound Debridement (08/21/24)
Renal Transplant
RUE AVF
Appendectomy
Social History
Tobacco: Former Smoker (Quit smoking 15 years ago. Approx 40 pack years total use.)
Alcohol: None
Drug: None
Family History
Family History: Other (Father: Brain Tumor Mother: PUD Sister: Cancer (unknown type))
Allergies / Home Medications
Allergies reflects when Allergies were last updated in [facility].
Home Medications with original date entered in [facility]
Allergy/Medication List:
Allergies
Allergy/AdvReac Type Severity Reaction Status Date / Time
No Known Allergies Allergy Verified 09/25/24 21:15
Home Medications
carvedilol 6.25 mg tablet 6.25 mg PO BID Heart Disease/Condition 07/23/23
prednisone 5 mg tablet 5 mg PO DAILY Anti-Inflammatory 07/23/23
tacrolimus 1 mg capsule, immediate-release (Prograf) 2 mg PO Q12H renal transplant 07/23/23
vibegron 75 mg tablet 75 mg PO DAILY Urinary Issue 07/23/23
aspirin 81 mg tablet,delayed release 81 mg PO DAILY Blood Clot Prevention/Tx 08/14/24
atorvastatin 40 mg tablet (Lipitor) 40 mg PO DAILY High Cholesterol 08/14/24
magnesium oxide 400 mg PO DAILY Supplement 08/14/24
mycophenolate sodium 180 mg tablet,delayed release 720 mg PO BID IMMUNOSUPPRESSANT 08/14/24
omega-3 acid ethyl esters 1 gram capsule (Lovaza) 2 cap PO BID Supplement 08/14/24
clopidogrel 75 mg tablet 75 mg PO DAILY #90 tabs 08/18/24
acetaminophen 325 mg tablet 650 mg (2 x 325 mg) PO Q4HPRN PRN mild pain or temp > 100.4 F #100 tabs 08/25/24
cephalexin 500 mg capsule 500 mg PO QID #40 caps 08/25/24
clonazepam 1 mg tablet 1 mg PO BIDPRN PRN anxiety #4 tabs 08/25/24
insulin glargine 100 unit/mL (3 mL) subcutaneous pen (Lantus Solostar U-100 Insulin) 20 unit (0.2 mL) SC HS diabetes #0 mL 08/25/24
insulin lispro 100 unit/mL subcutaneous pen (Humalog KwikPen (U-100) Insulin) 13 unit (0.13 mL) SC AC Diabetes #0 mL 08/25/24
nifedipine 30 mg tablet,extended release 30 mg PO DAILY #30 tabs 08/25/24
Review of Systems
-
Unable to obtain full review of systems at this time due to: Acuity
History Source: Patient (limited ROS )
Constitutional: Reports Fever, Fatigue and Chills
Respiratory: Reports Trouble Breathing; Denies Cough
Cardiac: Denies Chest Pain
Abdomen/GI: Reports Abdominal Pain
: Denies Dysuria or Flank Pain
Physical Exam
Vital Signs
Vital Signs
Temp Pulse Resp BP Pulse Ox
102.6 F H 92 22 139/71 95
09/25/24 21:17 09/26/24 03:01 09/26/24 02:45 09/26/24 03:01 09/26/24 02:30
Physical Exam
General: Other (Acutely ill-appearing 74y M with active rigors / chills.)
HEENT: Other (Dry MM. Thick neck.)
Respiratory: Clear; No Wheezes, Rales or Rhonchi
Cardiac: S1/S2, Tachycardia and Murmur (II/ TEREZA)
GI: Other (Obese, diffusely tender without rebound / guarding. Pos BS.)
Musculoskeletal: No Clubbing, No Cyanosis, No Edema and Other (R transmet incision well-appearing. L foot debridement bed healing well.)
Neuro: Other (Lethargic / confused.)
Laboratory Results
-
09/25/24 21:24
09/25/24 21:24
Laboratory Results
Lactic Acid 1.5 mmol/L (0.7-2.0) 09/25/24 21:24
Total Bilirubin 0.6 mg/dl (0.2-1.3) 09/25/24 21:24
AST 16 U/L (17-59) L 09/25/24 21:24
ALT 16 U/L (0-50) 09/25/24 21:24
Alkaline Phosphatase 80 U/L (38-126) 09/25/24 21:24
Impression/Plan
-
A/P: Patient is a 74y M with PMH significant for hypertension, DM-II and renal transplant who presents to ED complaining of weakness, fatigue and noted confusion per family.
UTI
Sepsis secondary to the above
- Admit for further evaluation and treatment.
- Patient presents with fever, tachycardia, tachypnea and leukocytosis. UA consistent with infection and further evaluation in progress.
- Continue IV abx with Zosyn pending additional data / culture results.
- Check CT A/P now to rule out obstruction, pyelo, etc - especially with solitary / transplanted kidney.
- Follow up blood cultures, follow fever curve and monitor for any new / focal complaints or symptoms.
- Bolus IVF now and continue support. +/- pressors if needed to maintain perfusion.
SHERRY on CKD II
s/p Renal Transplant
- SCr = 1.4 compared to recent baseline of 1.1.
- IVF support as noted above.
- Follow for return to baseline renal function.
- Continue current transplant regimen for now (Tacro, prednisone, Cellcept).
- Tacrolimus level 08/19 was 5.8.
- Nephrology evaluation for additional recommendations.
Heme Positive Stools
Acute Blood Loss Anemia
- Hgb today is 7.4 which is decreased compared to prior / baseline.
- Heme positive, black stool appreciated in the ED.
- IV PPI BID.
- Follow H&H and transfuse if needed.
- GI evaluation for additional recommendations/ possible endoscopic evaluation.
- Check iron studies, etc and replace as needed.
b/l LE Wounds
ASCVD / PAD
- Stable. Recent admission with amputation / wound debridement.
- Wounds / surgical sites are well appearing without evidence of active infection, erythema, discharge, etc.
- Wound Care eval for continued local care.
- Continue current CV med regimen s/p recent RLE balloon angioplasty.
Benign Hypertension
- BP borderline due to sepsis / acute illness.
- Hold nifedipine for now. Holding parameters for Coreg.
DM-II
- Stable. Decrease basal insulin dose for now.
- Follow glucose and cover with SSI as needed.
Anxiety
- Stable. Continue clonazepam PRN.
DVT Prophylaxis: SCDs
Code Status: Full
[2024-09-26] MEDS: NSS 1000 IV ×3 (04:39→20:27)
[2024-09-26] MEDS: OFIRMEV 100 IV ×2 (04:40→21:59)
[2024-09-26 06:12] LABS: Hematocrit 21.1 % (39.0-52.0); Hemoglobin 6.5 g/dL (13.0-18.0); Mean Corp Hgb Conc. 30.8 g/dL (33.0-37.0); Mean Corpuscular Hgb 29.1 pg (27.0-31.0); Mean Corpuscular Volume 94.6 fL (80.0-94.0); Mean Platelet Volume 11.2 fL (7.4-10.4); Platelet Count 226 10^3/uL (130-400); Red Blood Cell Count 2.23 10^6/uL (4.70-6.10); Red Cell Dist. Width 16.9 % (11.5-14.5); White Blood Cell Count 17.7 10^3/uL (4.8-10.8)
--- NOTE | 2024-09-26 06:25 | W.PN.UPDATE ---
Update Note
Progress Note Update
Hgb 6.5. Consent in chart, Type and screen will transfuse 1 u PRBC's.
99.1, 101/42, 71, 21, 98% Patient stable without new complaints.
Heme test Positive in ER, Consult GI in place, PPI
[2024-09-26 06:32] LABS: Blood Urea Nitrogen 26 mg/dl (9-20); Calcium 8.2 mg/dl (8.4-10.2); Carbon Dioxide 21 mmol/L (22-30); Chloride 105 mmol/L (98-107); Estimated Creatinine Clearance 48 ml/min; Glucose 187 mg/dl (70-99); Magnesium 1.5 mg/dl (1.6-2.3); Phosphorus 3.5 mg/dl (2.5-4.5); Potassium 4.8 mmol/L (3.5-5.1); Sodium 135 mmol/L (135-145)
[2024-09-26 06:49] LABS: Total Iron Binding Capacity 288 ug/dl (261-462)
--- NOTE | 2024-09-26 06:49 | CON.GI ---
Addendum entered and electronically signed by Silvano Foss MD 09/26/24 10:02:
I saw and examined the patient.
The HEARTH FEEDER or PA's note was reviewed and I agree with the note.
Comment:
Pt is a 74 y/o man admitted with urosepsis also had a drop in hgb and dark stool as outpatient/ER. Pt is confused. No current bleeding
abd: soft, nontender
not oriented
impression
urosepsis
GIB likely upper ?chronic
plan:
treat urosepsis
transfuse and follow hgb
IV PPI bid
likely egd on saturday
Vijaya FERNANDEZ did speak with family who are agreeable
Original Note:
Consultation
-
Date/Time Consultation Requested: 09/26/24339
Date/Time Consultation Performed: 09/26/24614
Requesting Provider: Dr Boone
Performing Provider: Dr Foss / Vijaya Davis PA-C
Reason for Consultation: anemia, heme positive stools
Medical History
Chief Complaint / HPI
Chief Complaint: weakness, confusion
History of Present Illness:
This is a 74 year old male with a past medical history of IDDM, HTN, ESRD (s/p kidney transplant 10/2022), CAD, PAD, anxiety, depression, colon polyps, recently admitted at 08/14 to 08/26/24 and underwent right foot amputation, presented to the ER
with complaints of confusion, weakness and shortness of breath. Family noted the change in mental status with confusion. It is also reported that he had dark stools for the past week or so. No BRBPR. Patient did not have any abdominal pain,
diarrhea, nausea or vomiting. He is a former smoker and denies alcohol use. He takes aspirin 81mg but no other anticoagulation or NSAID use. Plavix is listed in his medication list, but I confirmed with family members (son, ) that he is not
currently taking Plavix. Upon arrival in the ER patient had fever of 102.9, with labs showing anemia with Hgb of 7.4, which dropped to 6.5. Transfusion with 1 unit of PRBCs ordered. Serum iron low (<20 ug/dL). Normal TIBC and ferritin. WBC count
elevated at 17.3. Urinalysis suggestive of UTI, with likely urosepsis. IV antibiotics were started. Blood and urine cultures pending. Patient had colonoscopy in [address] Newman, which showed 2 small adenomatous polyps. Family does not think he
has ever had an endoscopy.
Past Medical History
Past Medical History: Other (DDM, HTN, ESRD (s/p kidney transplant 10/2022), CAD, PAD, anxiety, depression, colon polyps)
Past Surgical History: Other (R Popliteal Artery Angioplasty (08/18/24) Right Transmetatarsal Amputation (08/21/24) Bilateral Foot Wound Debridement (08/21/24) Renal Transplant RUE AVF Appendectomy)
Social History
Tobacco: Former Smoker
Alcohol: None
Drug: None
Personal:
Living: With Family
Family History
Family History: Other (no family history of any GI malignancies)
Allergies / Home Medications
Allergy/AdvReac Type Severity Reaction Status Date / Time
No Known Allergies Allergy Verified 09/25/24 21:15
�Medication �Instructions �Recorded
carvedilol 6.25 mg tablet 6.25 mg PO BID Heart 07/23/23
Disease/Condition
prednisone 5 mg tablet 5 mg PO DAILY Anti-Inflammatory 07/23/23
tacrolimus 1 mg capsule, 2 mg PO Q12H renal transplant 07/23/23
immediate-release (Prograf)
vibegron 75 mg tablet 75 mg PO DAILY Urinary Issue 07/23/23
aspirin 81 mg tablet,delayed 81 mg PO DAILY Blood Clot 08/14/24
release Prevention/Tx
atorvastatin 40 mg tablet (Lipitor) 40 mg PO DAILY High Cholesterol 08/14/24
magnesium oxide 400 mg PO DAILY Supplement 08/14/24
mycophenolate sodium 180 mg 720 mg PO BID IMMUNOSUPPRESSANT 08/14/24
tablet,delayed release
omega-3 acid ethyl esters 1 gram 2 cap PO BID Supplement 08/14/24
capsule (Lovaza)
clopidogrel 75 mg tablet 75 mg PO DAILY #90 tabs 08/18/24
acetaminophen 325 mg tablet 650 mg (2 x 325 mg) PO Q4HPRN PRN 08/25/24
mild pain or temp > 100.4 F #100
tabs
cephalexin 500 mg capsule 500 mg PO QID #40 caps 08/25/24
clonazepam 1 mg tablet 1 mg PO BIDPRN PRN anxiety #4 tabs 08/25/24
insulin glargine 100 unit/mL (3 20 unit (0.2 mL) SC HS diabetes 08/25/24
mL) subcutaneous pen (Lantus #0 mL
Solostar U-100 Insulin)
insulin lispro 100 unit/mL 13 unit (0.13 mL) SC AC Diabetes 08/25/24
subcutaneous pen (Humalog KwikPen #0 mL
(U-100) Insulin)
nifedipine 30 mg tablet,extended 30 mg PO DAILY #30 tabs 08/25/24
release
Review of Systems
-
Unable to obtain full review of systems at this time due to: Acuity
History Source: Patient and Family
Vital Signs
Temp Pulse Resp BP Pulse Ox
99.1 F 71 21 101/42 98
09/26/24 06:29 09/26/24 06:03 09/26/24 06:03 09/26/24 06:03 09/26/24 06:03
Physical Exam
Exam
General: Well Developed, Well Nourished and No Apparent Distress
Respiratory: Clear
Cardiac: Regular Rhythm
GI: Soft, Non Tender, Normal Bowel Sounds and Other (obese)
Rectal: Other (black, heme positive stool per ER)
Skin: Warm and Dry
Neuro: Other (sleepy)
Psych: Confused
Results
WBC 17.7 10^3/uL (4.8-10.8) H 09/26/24 05:36
Hgb 6.5 g/dL (13.0-18.0) L* 03 05:36
Hct 21.1 % (39.0-52.0) L 09/26/24 05:36
MCV 94.6 fL (80.0-94.0) H 09/26/24 05:36
Plt Count 226 10^3/uL (130-400) 09/26/24 05:36
Absolute Neuts (auto) 14.7 10^3/uL (1.4-6.5) H 09/25/24 21:24
Sodium 135 mmol/L (135-145) 09/26/24 05:35
Potassium 4.8 mmol/L (3.5-5.1) 09/26/24 05:35
Chloride 105 mmol/L (98-107) 09/26/24 05:35
Carbon Dioxide 21 mmol/L (22-30) L 09/26/24 05:35
BUN 26 mg/dl (9-20) H 09/26/24 05:35
Creatinine 1.7 mg/dL (0.7-1.3) H 09/26/24 05:35
Calcium 8.2 mg/dl (8.4-10.2) L 09/26/24 05:35
Total Bilirubin 0.6 mg/dl (0.2-1.3) 09/25/24 21:24
AST 16 U/L (17-59) L 09/25/24 21:24
ALT 16 U/L (0-50) 09/25/24 21:24
Alkaline Phosphatase 80 U/L (38-126) 09/25/24 21:24
Diagnostic Image Results:
CT Abdomen/Pelvis 09/26/24: report pending
Prior GI Procedures:
EGD: ? pt's family is uncertain if he ever had EGD
Colonoscopy:
2021, Dr. Newman:
3 mm polyp in the proximal transverse colon, 2 mm polyp in the distal transverse colon,
(tubular adenomas), repeat 5 years
2018, Dr. Newman:
9 mm polyp in the mid ascending colon, removed with a hot snare. Injected. Clips were placed. Otherwise normal.
(tubulovillous adenoma)
Assessment / Plan
-
74 year old male with history of IDDM, HTN, ESRD (s/p kidney transplant 10/2022), CAD, PAD, anxiety, depression, colon polyps, recently admitted at 08/14 to 08/26/24 and underwent right foot amputation, admitted with urosepsis and change in mental
status, with iron deficiency anemia with hemoglobin dropping to 6.5 with 1 unit PRBCs ordered to transfuse. He did not dark stools for the week prior to presenting to the ER. On aspirin 81mg, no other NSAID use or anticoagulation.
IMPRESSION / PLAN:
Acute blood loss anemia, with melena and heme positive stools
- Hgb 6.5, will be transfused 1 unit PRBCs
- trend Hgb, transfuse if falls below 7
- to tentatively plan for endoscopy on Saturday, pending course - to determine timing further with Dr. Foss
Urosepsis
- blood and urine cx pending
- continue IV antibiotics; ensure patient stable for endoscopic procedure
Colon Polyps (tubulovillous and tubular adenomas)
- up to date with colonoscopy; due 2026 for surveillance
Other medical issues managed as per hospitalist.
-
-
Thank you for consultation and allowing me to participate in the patient's care. Please call the stationary boiler fireman GI physician during the after hours with any questions or concerns.
[2024-09-26 06:52] LABS: Iron < 20 ug/dl (49-181)
[2024-09-26 09:09] LABS: Glucose - Point of Care 203 mg/dl (70-99)
[2024-09-26] MEDS: ASPIR LOW (ENTERIC COATED) 81 MG PO (09:16)
[2024-09-26] MEDS: DELTASONE 5 MG PO (09:16)
[2024-09-26] MEDS: LIPITOR 40 MG PO (09:16)
[2024-09-26] MEDS: COREG 6.25 MG PO ×2 (09:17→20:26)
[2024-09-26] MEDS: PROGRAF 2 MG PO ×2 (09:18→20:26)
[2024-09-26] MEDS: NOVOLOG FLEXPEN-LOW RESISTANCE 2 UNITS SC (09:22)
[2024-09-26 09:56] LABS: Glycohemoglobin (HgbA1c) 6.6 % (4.0-5.6)
[2024-09-26] MEDS: PROTONIX IV 40 MG IV ×2 (10:02→20:26)
[2024-09-26] MEDS: NSS (PRESERVATIVE FREE) 10 ML IV ×2 (10:02→20:27)
--- NOTE | 2024-09-26 10:05 | W.CON.NEPH ---
Consultation
-
Date/Time Consultation Requested: 09/26/24 034
Date/Time Consultation Performed: 09/26/24 0915
Requesting Provider: Bayron Tinoco
Performing Provider: Leola Salgado
Reason for Consultation: SHERRY, h/o KTP
Medical History
-
Chief Complaint: confusion, weakness
History of Present Illness:
74-year-old male history of ESRD from diabetic nephropathy s/p renal transplant (donor daughter) in 10/2022 at [place] on Tac, MMF, prednisone and monthly Belatacept for ACR in biopsy in 04/2023 last dose in Dec, labile BPs with significant
orthostatic hypotension with autonomic dysfucntion related to diabetes, hyperlipidemia, insulin-dependent diabetes, recent R transmet amputation presents to ED on 09/25 complaining of confusion, weakness and fatigue. History is limited as pt is
poor historian. He noted to have high fevers and chills. Noted to have UTI and sepsis. started on empiric abx. His cr on admit was at 1.4 but now upto 1.7. Hb low at 6.5 recieving PRBC during visit with heme +ve stool. He started on IVF too,. He
notes several days of generalized weakness and fatigue. He denies any pain. Recent complicated hospitalization from 08/14/24 - 08/25/24 during which he underwent revascularization to the RLE, R transmetatarsal amputation and b/l foot wound
debridements.
Family noted that the patient seemed to be confused / disoriented hence brought him to ER.
Patient denied chest pain, short of breath or dizzy. Patient denied any abdominal pain, nausea, vomiting or diarrhea. No dysuria.
His cr baseline was at 1.3-1.5. Due for f/u with Dr Villasenor.
Past Medical History
1. ESRD due to diabetes. s/p LRTxp 10/2022 at [place]
2. Diabetes mellitus, type 2 with complications
3. Orthostasis.
4. Right AV fistula.
5. Autonomic insufficiency
6. ADHD.
7. Sleep apnea.
8. Hyperlipidemia.
9. BPH.
10. Elevated PSA.
11. Secondary hyperparathyroidism.
Past Surgical History: Other (Appendectomy Laser treatment of both eyes Right upper extremity speech slow reaction Right upper extremity fistulogram Right upper extremity fistula revision, kidney transplant, TURP)
Social History
Tobacco: Non-Smoker
Alcohol: None
Personal:
Living: With Family
Family History
Family History: Not Pertinent
Allergies / Home Medications
Allergy/AdvReac Type Severity Reaction Status Date / Time
No Known Allergies Allergy Verified 09/25/24 21:15
�Medication �Instructions �Recorded �Confirmed �Type
carvedilol 6.25 mg tablet 6.25 mg PO BID Heart 07/23/23 09/26/24 History
Disease/Condition
prednisone 5 mg tablet 5 mg PO DAILY Anti-Inflammatory 07/23/23 08/14/24 History
tacrolimus 1 mg capsule, 2 mg PO Q12H renal transplant 07/23/23 09/26/24 History
immediate-release (Prograf)
vibegron 75 mg tablet 75 mg PO DAILY Urinary Issue 07/23/23 08/14/24 History
aspirin 81 mg tablet,delayed 81 mg PO DAILY Blood Clot 08/14/24 09/26/24 History
release Prevention/Tx
atorvastatin 40 mg tablet (Lipitor) 40 mg PO DAILY High Cholesterol 08/14/24 09/26/24 History
magnesium oxide 400 mg PO DAILY Supplement 08/14/24 09/26/24 History
mycophenolate sodium 180 mg 720 mg PO BID IMMUNOSUPPRESSANT 08/14/24 08/14/24 History
tablet,delayed release
omega-3 acid ethyl esters 1 gram 2 cap PO BID Supplement 08/14/24 08/14/24 History
capsule (Lovaza)
clopidogrel 75 mg tablet 75 mg PO DAILY #90 tabs 08/18/24 Rx
acetaminophen 325 mg tablet 650 mg (2 x 325 mg) PO Q4HPRN PRN 08/25/24 Rx
mild pain or temp > 100.4 F #100
tabs
cephalexin 500 mg capsule 500 mg PO QID #40 caps 08/25/24 Rx
clonazepam 1 mg tablet 1 mg PO BIDPRN PRN anxiety #4 tabs 08/25/24 08/14/24 Rx
insulin glargine 100 unit/mL (3 20 unit (0.2 mL) SC HS diabetes 08/25/24 09/26/24 Rx
mL) subcutaneous pen (Lantus #0 mL
Solostar U-100 Insulin)
insulin lispro 100 unit/mL 13 unit (0.13 mL) SC AC Diabetes 08/25/24 09/26/24 Rx
subcutaneous pen (Humalog KwikPen #0 mL
(U-100) Insulin)
nifedipine 30 mg tablet,extended 30 mg PO DAILY #30 tabs 08/25/24 09/26/24 Rx
release
Review of Systems
-
difficult to obtain, pt poor historian
Physical Exam
Vital Signs
Vital Signs
Temp Pulse Resp BP Pulse Ox
98.4 F 83 26 90/76 94
09/26/24 09:10 09/26/24 09:51 09/26/24 09:51 09/26/24 09:51 09/26/24 09:51
Lab Results
WBC 17.7 10^3/uL (4.8-10.8) H 09/26/24 05:36
RBC 2.23 10^6/uL (4.70-6.10) L 09/26/24 05:36
Hgb 6.5 g/dL (13.0-18.0) L* 09/26/24 05:36
Hct 21.1 % (39.0-52.0) L 09/26/24 05:36
Plt Count 226 10^3/uL (130-400) 09/26/24 05:36
Sodium 135 mmol/L (135-145) 09/26/24 05:35
Potassium 4.8 mmol/L (3.5-5.1) 09/26/24 05:35
Chloride 105 mmol/L (98-107) 09/26/24 05:35
Carbon Dioxide 21 mmol/L (22-30) L 09/26/24 05:35
BUN 26 mg/dl (9-20) H 09/26/24 05:35
Creatinine 1.7 mg/dL (0.7-1.3) H 09/26/24 05:35
eGFR 42.30 09/26/24 05:35
Glucose 187 mg/dl (70-99) H 09/26/24 05:35
Calcium 8.2 mg/dl (8.4-10.2) L 09/26/24 05:35
Phosphorus 3.5 mg/dl (2.5-4.5) 09/26/24 05:35
Albumin 4.1 g/dl (3.5-5.0) 09/25/24 21:[address] abd:
IMPRESSION:
Atrophic [place] kidneys with right lower quadrant transplant kidney. There is no evidence of renal calculus.
There is mild circumferential urinary bladder wall thickening which can be seen with seen with cystitis. Recommend correlation with urinalysis.
Mild colonic stool burden without evidence of bowel obstruction.
Physical Exam
General: Awake, Alert and No Distress
HEENT: EOMI, Anicteric, Facial Symmetry and No JVD
Respiratory: Clear, Normal Excursion and Nonlabored Respirations
Cardiac: S1/S2 and Regular Rate/Rhythm
Breast: Deferred by me
Abdomen: Soft, Nontender, Nondistended and Other (no graft tenderness)
Musculoskeletal: No Cyanosis, No Edema and Other (right TMA healing)
Skin: No Rash
Neuro: Nonfocal/Grossly Intact
Psych: Appropriate
Data Reviewed
-
Radiology: Report Reviewed by me and Discussed with Patient
Labs: Labs Reviewed by me and Discussed with Patient
Assessment/Plan
-
Assessment:
UTI
Sepsis secondary to the above
SHERRY on CKD III-baseline cr 1.3-1.5
ESRD-D nephropathy s/p LR KTP(daughter) 10/2022 at [place]
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
Heme Positive Stools
Acute Blood Loss Anemia
b/l LE Wounds
ASCVD / PAD
Benign Hypertension
Anxiety
h/o syncope from severe orthostatic hypotension
-DM2-with microvascular complications
Anxiety, Insomnia
BPH
Plan:
A/w possible urosepsis
SHERRY-suspect from above, follow cx
check bladder scan and low threshold for frausto, no hydro on CT , no graft tenderness
check tac level
cont aggressive IVF
transfusion for anemia-GI consulted
hold anti HTN meds
cont IS-tac, pred-consider stress dose
if sepsis worsens could hold MMF
follow labs and UOP
avoid nephrotoxins
d/w pt and nursing
[2024-09-26] MEDS: MYFORTIC DELAYED REL. 720 MG PO ×2 (10:48→20:27)
[2024-09-26 11:05] LABS: Glucose - Point of Care 252 mg/dl (70-99)
[2024-09-26] MEDS: TYLENOL 650 MG PO ×2 (11:23→16:05)
--- NOTE | 2024-09-26 13:21 | EDRN ---
Dr. Rodriguez notified for pts fever rising despite tylenol. Pt pulled out PIV, removed telemetry wires and is now disoriented. No new orders at this time. Ice applied to pt.
[2024-09-26 14:08] LABS: Glucose - Point of Care 301 mg/dl (70-99)
[2024-09-26] MEDS: NOVOLOG FLEXPEN-LOW RESISTANCE 4 UNITS SC ×2 (14:37→18:34)
--- NOTE | 2024-09-26 15:01 | PHANOTE ---
med rec tech: patient is not alert and spouse does not know what he takes. she says she will bring a list tomorrow.
[2024-09-26 15:52] LABS: Hematocrit 22.2 % (39.0-52.0); Hemoglobin 6.9 g/dL (13.0-18.0)
[2024-09-26] MEDS: ZOSYN IV (16:05)
[2024-09-26 18:27] LABS: Glucose - Point of Care 304 mg/dl (70-99)
--- NOTE | 2024-09-26 19:00 | EDRN ---
Report received, introduced myself to patient who is sleeping and receiving blood at this time, will continue to monitor
--- NOTE | 2024-09-26 20:37 | EDRN ---
In giving patient his 2000 meds, he had an episode of vomiting, bright green in color, after taking his Myfortic, tiger texted hospitalist covering IMU to inform them of the episode to see if we can give patient something for nausea, they are
checking chart to order medications appropriately for this, other oleary, patient resting comfortably.
[2024-09-26] MEDS: ZOFRAN 4 MG IV (20:56)
--- NOTE | 2024-09-26 22:00 | PTCARENOTE ---
Received patient from ED. Pt. drowsy but arousable and oriented. Denies pain/discomfort at this time. Heart rhythm sinus. Blood pressure normotensive. Currently on 2L nasal cannula. Lungs sound diminished. PO diet is active, poor appetite. [place]
catheter in place, draining without issue. Skin as documented. Vital signs stable at this time.
[2024-09-26 23:14] LABS: Glucose - Point of Care 274 mg/dl (70-99)
[2024-09-26] MEDS: LANTUS 0.12 UNITS SC (23:23)
[2024-09-27] VITALS (28 sets, daily range): BP systolic 108–171; BP diastolic 54–69; PULSE 62; O2SAT 93; BMI 31.0
--- NOTE | 2024-09-27 00:10 | PTCARENOTE ---
Patient febrile. Offirmev ordered and administered. Fever improving. Son at bedside. Vital signs stable at this time.
[2024-09-27] MEDS: ZOSYN 50 IV (03:09)
--- NOTE | 2024-09-27 03:15 | PTCARENOTE ---
Pt. assessment remains unchanged. AM labs drawn. Vital signs stable at this time.
[2024-09-27 03:30] LABS: Hematocrit 21.6 % (39.0-52.0); Mean Corp Hgb Conc. 32.4 g/dL (33.0-37.0); Mean Corpuscular Hgb 29.5 pg (27.0-31.0); Mean Corpuscular Volume 91.1 fL (80.0-94.0); Mean Platelet Volume 11.2 fL (7.4-10.4); Platelet Count 202 10^3/uL (130-400); Red Blood Cell Count 2.37 10^6/uL (4.70-6.10); Red Cell Dist. Width 16.7 % (11.5-14.5); White Blood Cell Count 21.9 10^3/uL (4.8-10.8)
[2024-09-27 03:40] LABS: Blood Urea Nitrogen 34 mg/dl (9-20); Calcium 7.2 mg/dl (8.4-10.2); Carbon Dioxide 16 mmol/L (22-30); Chloride 104 mmol/L (98-107); Estimated Creatinine Clearance 45 ml/min; Glucose 259 mg/dl (70-99); Potassium 4.8 mmol/L (3.5-5.1); Sodium 133 mmol/L (135-145)
--- NOTE | 2024-09-27 04:59 | W.PN.GI.CBS2 ---
Today's Communication / Plan
-
EGD tomorrow
Assessment / Plan
-
74 year old male with history of IDDM, HTN, ESRD (s/p kidney transplant 10/2022), CAD, PAD, anxiety, depression, colon polyps, recently admitted at 08/14 to 08/26/24 and underwent right foot amputation, admitted with urosepsis and change in mental
status, with iron deficiency anemia with hemoglobin dropping to 6.5 with 1 unit PRBCs ordered to transfuse. He did not dark stools for the week prior to presenting to the ER. On aspirin 81mg, no other NSAID use or anticoagulation.
IMPRESSION / PLAN:
Urosepsis
UGIB
plan;
nephrology following
continue to monitor hgb
IV PPI bid
ok for clears today. NPO after midnight
EGD tentatively tomorrow
Subjective
Subjective
Date of Service: September 27, 2024
Pt much more alert this am. Conversing. Remembers dark stool but no abdominal pain or vomiting
Objective
Data Reviewed
Laboratory Data:
Laboratory Results
09/27/24 03:00
09/27/24 03:00
Laboratory Results
Phosphorus 3.5 mg/dl (2.5-4.5) 09/26/24 05:35
Magnesium 1.5 mg/dl (1.6-2.3) L 09/26/24 05:35
Total Bilirubin 0.6 mg/dl (0.2-1.3) 09/25/24 21:24
AST 16 U/L (17-59) L 09/25/24 21:24
ALT 16 U/L (0-50) 09/25/24 21:24
Alkaline Phosphatase 80 U/L (38-126) 09/25/24 21:24
Vital Signs and I&O:
Vital Signs
Temp Pulse Resp BP Pulse Ox
99.8 F 57 17 135/59 100
09/27/24 03:37 09/27/24 04:30 09/27/24 04:30 09/27/24 04:00 09/27/24 04:30
I&O
09/25/24 09/26/24 09/27/24
06:59 06:59 07:59
Intake Total 1590 / 1590
Output Total 350 / 350 1135 / 1135
Balance -350 / -350 455 / 455
Physical Exam
Physical Exam
HEENT: Anicteric
GI: Soft, Non Distended and Non Tender
[2024-09-27] MEDS: NSS 1000 IV (05:44)
[2024-09-27] MEDS: ASPIR LOW (ENTERIC COATED) PO (08:02)
[2024-09-27 08:16] LABS: Glucose - Point of Care 298 mg/dl (70-99)
[2024-09-27] MEDS: NOVOLOG FLEXPEN-LOW RESISTANCE 3 UNITS SC ×3 (08:16→18:10)
[2024-09-27] MEDS: TYLENOL 650 MG PO (08:59)
[2024-09-27] MEDS: DELTASONE 5 MG PO (08:59)
[2024-09-27] MEDS: LIPITOR 40 MG PO (08:59)
[2024-09-27] MEDS: PROTONIX IV 40 MG IV ×2 (09:00→20:05)
[2024-09-27] MEDS: PROGRAF 2 MG PO ×2 (09:00→20:04)
[2024-09-27] MEDS: NSS (PRESERVATIVE FREE) 10 ML IV ×2 (09:00→20:05)
[2024-09-27] MEDS: COREG 6.25 MG PO ×2 (09:01→20:04)
[2024-09-27] MEDS: MYFORTIC DELAYED REL. 720 MG PO ×2 (09:01→20:04)
[2024-09-27] MEDS: STERILE WATER FOR INJECTION 20 ML IV ×2 (10:01→21:59)
[2024-09-27] MEDS: ROCEPHIN 2000 MG IV ×2 (10:02→21:59)
--- NOTE | 2024-09-27 11:00 | PTCARENOTE ---
Rec'd care of patient at 0700. Patient alert and oriented. NSR on tele. +1 edema in b/l LE. Palpable pulses. Right av fistula +thrill/bruit. Lung sounds diminished throughout. Weaned to RA. +BS. Placed on bedpan for large, formed brown BM. Issac in
place for acute retention. IVFs infusing through left wrist INT. VSS. Tylenol administered at 0900 for core temp 101.1.
--- NOTE | 2024-09-27 11:12 | PTCARENOTE ---
PT/OT at bedside. Patient recently wheelchair dependent d/t right toe amputations. Non-weightbearing to RLE and heel only on LLE (wound on bottom of foot).
--- NOTE | 2024-09-27 11:34 | PTCARENOTE ---
Patient oob in chair at 1130. VSS.
--- NOTE | 2024-09-27 11:42 | W.PN.NEPH.PH ---
Today's Communication / Plan
-
change iVF to bicarb
replace mg prn
Assessment/Plan
-
Assessment:
Sepsis
enterococcal bacteremia and UTI
SHERRY on CKD III-baseline cr 1.3-1.5
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
Heme Positive Stools
Acute Blood Loss Anemia
b/l LE Wounds
ASCVD / PAD
Benign Hypertension
Anxiety
h/o syncope from severe orthostatic hypotension
-DM2-with microvascular complications
Anxiety, Insomnia
BPH
Plan:
A/w enterococcal urosepsis
SHERRY-suspect from above, cr slightly up but non oliguric
maintain frausto for retention 500cc, no hydro on CT , no graft tenderness
pending tac level
worsening met acidosis-IVF changed to bicarb
prn transfusion for anemia-GI plan EGD tomorrow
BP improved, if persistently high may resume anti HTN meds in am
cont IS-tac, pred and MMF
reaplce mg
dose meds renally
follow labs
avoid nephrotoxins
d/w pt and nursing
-
-
Date of Service: September 27, 2024
CC / HPI / ROS
-
Chief Complaint:
SHERRY with CKD h/o KTP
History of Present Illness:
cr up at 1.8, BP stable
bicarb down at 16
non oliguric with frausto
ongoing fever, chills improving
hb low at 7, WBC up at 21.9
Review of Systems:
mild chills
no n/v
having BM no diarrhea
mild abd discomfort may be
no cp or sob
Labs
-
Labs:
WBC 21.9 10^3/uL (4.8-10.8) H 09/27/24 03:00
RBC 2.37 10^6/uL (4.70-6.10) L 09/27/24 03:00
Hgb 7.0 g/dL (13.0-18.0) L 09/27/24 03:00
Hct 21.6 % (39.0-52.0) L 09/27/24 03:00
Plt Count 202 10^3/uL (130-400) 09/27/24 03:00
Sodium 133 mmol/L (135-145) L 09/27/24 03:00
Potassium 4.8 mmol/L (3.5-5.1) 09/27/24 03:00
Chloride 104 mmol/L (98-107) 09/27/24 03:00
Carbon Dioxide 16 mmol/L (22-30) L 09/27/24 03:00
BUN 34 mg/dl (9-20) H 09/27/24 03:00
Creatinine 1.8 mg/dL (0.7-1.3) H 09/27/24 03:00
eGFR 39.50 09/27/24 03:00
Glucose 259 mg/dl (70-99) H 09/27/24 03:00
Calcium 7.2 mg/dl (8.4-10.2) L 09/27/24 03:00
Phosphorus 3.5 mg/dl (2.5-4.5) 09/26/24 05:35
Albumin 4.1 g/dl (3.5-5.0) 09/25/24 21:24
Physical Exam
-
Vital Signs:
Vital Signs
Temp Pulse Resp BP Pulse Ox
100.7 F H 63 26 145/59 93
09/27/24 11:10 09/27/24 11:06 09/27/24 11:06 09/27/24 11:06 09/27/24 11:06
Cardiovascular:: Regular rate and rhythm
Respiratory:: Bilateral: CTA (anteriorly)
Lung Excursion:: Normal
Abdomen:: Nontender and Soft
Extremity Edema:: None: Bilateral:
Frausto Catheter: Yes
--- NOTE | 2024-09-27 11:50 | PTCARENOTE ---
Patient downgraded to medsur. 1 unit PRBCs ordered. Spoke with Hospitalist. Bicarb gtt to be initiated post transfusion. Repeat labs @ 1800.
--- NOTE | 2024-09-27 11:50 | CON.ID ---
Consultation
-
Date/Time Consultation Requested: September 27, 2024 1783
Date/Time Consultation Performed: September 27, 2024 1150
Requesting Provider: Dr. Sang Rodriguez
Performing Provider: Dr. Sandy Fraire
Reason for Consultation: Bacteremia of unclear source
Chief Complaint / Past History
History of Present Illness
74-year-old man with history of diabetes and diabetic nephropathy ultimately resulting in end-stage renal disease s/p renal transplant in October 2022, recent hospitalization August 14 to August 25 with extensive bilateral foot blistering wounds
right greater than left, right foot dry gangrene status post balloon angioplasty to right above-knee popliteal artery August 18 followed by right foot TMA August 21, who presented to the ER September 25 due to change in mental status and weakness. Per
family at bedside, he was having black stools at home. He then got progressively weak over several days followed by confusion. In ED temperature was 102.6, white count 17.3. Hemoglobin dropped to 6.5. Patient noted to be rigoring. UA positive
leukocyte esterase and pyuria. He was started on ceftriaxone. Admission blood cultures are now positive for Enterococcus. Patient is scheduled for EGD/colonoscopy tomorrow. Patient denies dysuria. No pain over transplant kidney. Mental status
has improved today. No nausea vomiting or diarrhea. No cough. The foot wounds are now healed.
Past History
Additional Past Medical History:
Diabetes with neuropathy and nephropathy
ESRD; previously on HD
Living related donor renal transplant 10/31/2022 at [place]
CKD3
HTN
Dyslipidemia
CAD
CVA
PAD s/p RLE endovascular intervention (08/18/24)
YASH on CPAP
Anxiety/depression
Macular degeneration
Narcolepsy
ADHD
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
Appendectomy
Right AV fistula
TURP
Knee arthroscopic surgery
Allergy History:
No Known Allergies Allergy (Verified 09/25/24 21:15)
Medications Reviewed: Yes
Current Antibiotics:
Ceftriaxone
Social History
Tobacco: Former Smoker
Alcohol: None
Drug: None
Personal:
Living: With Family
Employment: Retired ([place])
Family History
Family History: Not Pertinent
Review of Systems
Review of Systems
General: Fever, Chills and Change in Appetite
HEENT: Negative Sinus Problems, Headache or Pharyngitis
Cardiovascular: Negative Chest Pain, Dyspnea or Edema
Respiratory: Negative Dyspnea or Cough
Gasteroenterology: Negative Nausea, Vomiting or Diarrhea
Genital / Urological: Negative Dysuria or Flank Pain
Endocrine: Weakness
Musculoskeletal: Negative Joint Pain
Neurological: Negative Dizziness
All systems: All other systems were reviewed and were negative
Vital Signs
Temp Pulse Resp BP Pulse Ox
100.7 F H 63 26 145/59 93
09/27/24 11:10 09/27/24 11:06 09/27/24 11:06 09/27/24 11:06 09/27/24 11:06
Selected Entries
09/26/24
13:15
Temp max 104.8 F H
Physical Exam
Physical Exam
Constitutional: No Acute Distress and Comfortable
Head: Other (No frontal or max or sinus tenderness)
Eyes: No Conjunctival Hemorrhage and Sclera Anicteric
Cardiovascular: Regular Rate and S1/S2
Pulmonary: Clear
Gastrointestinal: Soft, Non Tender, Non Distended and Normal Bowel Sounds
Genito-Urinary: Other (non tender over transplant kidney); Negative Suprapubic Tenderness
Extremities: Negative Edema
Skin: Rash (Very dry flaking skin bilateral foot)
Wound: Other (Right TMA site closed, no erythema)
Neurological: AO x 3
Lab / Diagnostic Study Results
09/27/24 03:00
Abs Immat Gran (auto) 0.1 10^3/uL (0-0.05) H 09/25/24 21:24
Absolute Neuts (auto) 14.7 10^3/uL (1.4-6.5) H 09/25/24 21:24
Absolute Lymphs (auto) 1.1 10^3/uL (1.2-3.4) L 09/25/24 21:24
Absolute Monos (auto) 1.2 10^3/uL (0.1-0.6) H 09/25/24 21:24
Absolute Basos (auto) 0.1 10^3/uL (0-0.2) 09/25/24 21:24
Immature Gran % 0.7 % (0-0.5) H 09/25/24 21:24
Neutrophils % 84.8 % (42.2-75.2) H 09/25/24 21:24
Lymphocytes % 6.1 % (20.5-51.1) L 09/25/24 21:24
Monocytes % 6.9 % (1.7-9.3) 09/25/24 21:24
Eosinophils % 1.1 % (0-6) 09/25/24 21:24
Basophils % 0.4 % (0-2) 09/25/24 21:24
Lactic Acid 1.5 mmol/L (0.7-2.0) 09/25/24 21:24
Ur Squamous Epith Cells None seen /LPF (Few) 09/26/24 01:03
Microbiology Results
Micro:
09/25/24 21:55 Blood Culture - Preliminary
Blood/Venous Positive culture in progress
Gram Stain - Preliminary
09/26/24 01:03 Urine Culture - Preliminary
Urine Enterococcus species
09/25/24 21:55 Blood Culture - Preliminary
Blood/Venous Enterococcus species
Gram Stain - Preliminary
09/25/24 21:24 Influenza Types A & B (MELVIN) - Final
Nasal Swab Negative for Influenza A & B, NAAT
Negative results must be combined with clinical observations
and patient history.
Nucleic Acid Amplification test (NAAT)performed on the
[employer] ID NOW platform.
09/26/24 CT a/p: Atrophic [place] kidneys with right lower quadrant transplant kidney. There is no evidence of renal calculus. There is mild circumferential urinary bladder wall thickening which can be seen with seen with cystitis. Recommend
correlation with urinalysis. Mild colonic stool burden without evidence of bowel obstruction.
09/25/24 CXR: No acute cardiopulmonary process.
Assessment / Plan
# Enterococcus bacteremia
Suspect GIB source vs urine source
# Severe sepsis.
Fever up to 104.8, leucocytosis trending up
# GIB with blood loss anemia
# Immunocompromised host: renal transplant on mycophenolate, tacrolimus
# Toxic metabolic encephalopathy resolved
- For EGD/colonoscopy tomorrow
- Repeat blood cx's in am
- Start Ampicillin 6g IV q6h + ceftriaxone 2gIV q12.
- Vancomycin IV pending final identification of Enterococcus.
- Trend temps/wbc.
# Conditions ROVING HAULER
Diabetes with neuropathy and nephropathy
ESRD; previously on HD
Living related donor renal transplant 10/31/2022 at [place] [facility]
CKD3
HTN
Dyslipidemia
CAD
CVA
PAD s/p RLE endovascular intervention (08/18/24)
YASH on CPAP
Anxiety/depression
Macular degeneration
Narcolepsy
ADHD
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
Appendectomy
Right AV fistula
TURP
Knee arthroscopic surgery
Care Review
Plan reviewed with: Physician (Dr. Sang Rodriguez)
[2024-09-27] MEDS: AMPICILLIN 108 MG IV ×2 (12:30→18:10)
--- NOTE | 2024-09-27 12:32 | PHA.VAN.IN ---
Assessment
- Assessment
Renal Function: Appears elevated from baseline (SCr 1.8)
Concomitant Antimicrobials: Ampicillin, Ceftriaxone
AUC Dosing Plan
- Dosing Variables
Dosing Weight (kg): 100.9
Dosing CrCl (ml/min): 45
Vd coefficient (L/kg): 0.6
- Empiric Dosing
Initial / Loading Dose: Vanco 2000mg Loading - pending administration 09/27/24
Maintenance Regimen: Vanco 1250mg Q24H Starting 09/28/24 0600
Estimated AUC (mcg*h/mL): 510
Estimated Peak (mcg*h/mL): 32.6
Estimated Trough (mcg/ml): 12.8
Estimated Half Life (H): 16.6
- Monitoring
No levels ordered at this time: Consider in the next few days
Pharmacokinetics Vancomycin I
- -
Patient Age: 74
Patient Sex: Male
Vancomycin Day #: 1
Indication: Bacteremia
Requesting Provider: Juno
Pertinent Antimicrobial Allergies:
No Known Drug Allergies
Height / Weight:
Height 5 ft 11 in
Actual Weight 100.9 kg
Pertinent Past Medical History: Kidney Transplant, CKD Stage II, T2DM
- Vital Signs / Lab Results
Temp Pulse Resp BP Pulse Ox
100.7 F H 62 19 125/69 96
09/27/24 11:10 09/27/24 12:00 09/27/24 12:00 09/27/24 12:00 09/27/24 12:00
Lab Results - Hematology
09/25/24 09/26/24 09/27/24
21:24 05:36 03:00
WBC 17.3 H 17.7 H 21.9 H
Lab Results - Chemistry
09/25/24 09/26/24 09/27/24
21:24 05:35 03:00
BUN 24 H 26 H 34 H
Creatinine 1.4 H 1.7 H 1.8 H
Estimated Creat Clear 48 45
Albumin 4.1
09/25/24
21:24
Lactic Acid 1.5
Lab Results - Urine
09/26/24
01:03
Urine Nitrite (Reflex) Negative
Leukocyte Esterase Rfl 3+ A
Urine WBC (Reflex) 60-70 A
Ur Squamous Epith Cells None seen
Urine Bacteria (Reflex) Many A
Microbiology Results
09/25/24 21:55 Blood Culture - Preliminary
Blood/Venous Positive culture in progress
Gram Stain - Preliminary
09/26/24 01:03 Urine Culture - Preliminary
Urine Enterococcus species
09/25/24 21:55 Blood Culture - Preliminary
Blood/Venous Enterococcus species
Gram Stain - Preliminary
09/25/24 21:24 Influenza Types A & B (MELVIN) - Final
Nasal Swab Negative for Influenza A & B, NAAT
Negative results must be combined with clinical observations
and patient history.
Nucleic Acid Amplification test (NAAT)performed on the
[employer] NOW platform.
[2024-09-27 12:35] LABS: Magnesium 1.7 mg/dl (1.6-2.3)
[2024-09-27 12:50] LABS: Glucose - Point of Care 276 mg/dl (70-99)
--- NOTE | 2024-09-27 13:03 | PTCARENOTE ---
1 unit PRBCs transfusing.
[2024-09-27] MEDS: LAC HYDRIN, AM LACTIN LOTION 1 APPLIC TOPICAL ×2 (13:38→20:05)
[2024-09-27] MEDS: VANCOCIN 540 MG IV (13:39)
--- NOTE | 2024-09-27 13:39 | W.PN.HOSP.TC ---
Today's Communication/Plan
-
see note
Assessment / Plan
Assessment / Plan
Sepsis secondary to the above
Enterococcal UTI and bacteremia
Immunocompromised state
-Blood culture 2 sets growing gram-positive cocci in pairs further identification pending
-Urine culture also growing enterococci
-CT abdomen pelvis did not show any obstruction/pyelonephritis/abscess
-Zosyn changed to Rocephin and ampicillin this point further susceptibility pending and may require vancomycin
-ID consulted and input noted.
Acute blood loss anemia
R/o GI bleed
-s/p 2 u prbc yesterday
-maintain on PPI
-on CL diet
-hbg 7 today, 1 more PRBC ordered
-GI planning for EGD tomorrow
SHERRY on CKD II
s/p Renal Transplant
Metabolic acidosis
-baseline cr of 1.1. increased to 1.8 today
-Tacrolimus level 08/19 was 5.8, repeat is pending.
-Maintained on tacrolimus/prednisone/mycophenolate
-Nephrology following.
B/l LE Wounds
ASCVD / PAD
-Stable. Recent admission with amputation / wound debridement.
-Wounds / surgical sites are well appearing without evidence of active infection, erythema, discharge, etc.
-Wound Care eval for continued local care.
-Continue current CV med regimen s/p recent RLE balloon angioplasty.
Benign Hypertension
-BP improved
-Hold nifedipine for now. Holding parameters for Coreg.
DM-II - Uncontrolled
- Stable. Decrease basal insulin dose for now.
- Follow glucose and cover with SSI as needed.
Anxiety
- Stable. Continue clonazepam PRN.
Hyponatremia
-monitor
DVT Prophylaxis: SCDs
Code Status: Full
Total time spent : 53 mins
Anticipated Discharge: > 48 hours
Subjective/Interval History
-
Date of Service: September 27, 2024
Continues to be febrile
blood pressure stable
no melena/blood in the stool
Objective Data
-
Labs:
Laboratory Results
09/26/24 09/27/24 09/27/24
22:15 03:00 18:00
WBC 21.9 H Pending
Hgb Cancelled 7.0 L Pending
Hct Cancelled 21.6 L Pending
Plt Count 202 Pending
Sodium 133 L
Potassium 4.8
Chloride 104
Carbon Dioxide 16 L
BUN 34 H
Creatinine 1.8 H
Glucose 259 H
Calcium 7.2 L
Vital Signs:
Vital Signs
Temp Pulse Resp BP Pulse Ox
99.7 F 58 17 141/60 97
09/27/24 13:15 09/27/24 13:15 09/27/24 13:15 09/27/24 13:15 09/27/24 13:15
I&O
09/26/24 09/27/24 09/28/24
05:59 06:59 06:59
Intake Total 1818 / 1818
Output Total 415 / 415
Balance 1403 / 1403
Review of Systems
-
Respiratory: Reports No Symptoms
Cardiac: Reports No Symptoms
Abdomen/GI: Reports No Symptoms
Physical Exam
-
General: Negative Cachectic
HEENT: Oxygen
Respiratory: Clear to Auscultation
Cardiac: Regular Rhythm and S1/S2; Negative Murmur
GI: Soft, Nontender and Nondistended
Neuro: Awake, Alert, AO x 3 and No Motor Deficits
Psych: Calm
[2024-09-27] MEDS: SODIUM BICARBONATE 1075 MEQ IV (15:22)
--- NOTE | 2024-09-27 15:45 | TRANSFER ---
Patient transported to with belongings.
[2024-09-27 17:14] LABS: Glucose - Point of Care 252 mg/dl (70-99)
[2024-09-27 19:04] LABS: Hematocrit 27.9 % (39.0-52.0); Hemoglobin 9.3 g/dL (13.0-18.0); Mean Corp Hgb Conc. 33.3 g/dL (33.0-37.0); Mean Corpuscular Hgb 29.6 pg (27.0-31.0); Mean Corpuscular Volume 88.9 fL (80.0-94.0); Platelet Count 185 10^3/uL (130-400); Red Blood Cell Count 3.14 10^6/uL (4.70-6.10); Red Cell Dist. Width 16.6 % (11.5-14.5); White Blood Cell Count 20.4 10^3/uL (4.8-10.8)
[2024-09-27 21:44] LABS: Glucose - Point of Care 264 mg/dl (70-99)
[2024-09-27] MEDS: LANTUS 0.12 UNITS SC (21:58)
[2024-09-27] MEDS: KLONOPIN 1 MG PO (22:11)
[2024-09-28] MEDS: AMPICILLIN 108 MG IV ×5 (00:01→23:30)
[2024-09-28] MEDS: SODIUM BICARBONATE 1075 MEQ IV ×2 (01:18→14:37)
[2024-09-28] MEDS: DILAUDID 0.25 MG IV (01:46)
[2024-09-28 05:09] VITALS: BMI 32.8
[2024-09-28] MEDS: VANCOCIN 275 MG IV (06:08)
[2024-09-28 07:25] VITALS: BP 168/59
[2024-09-28 07:43] LABS: Glucose - Point of Care 195 mg/dl (70-99)
[2024-09-28] MEDS: NOVOLOG FLEXPEN-LOW RESISTANCE SC (07:56)
[2024-09-28] MEDS: DELTASONE 5 MG PO (07:57)
[2024-09-28] MEDS: PROGRAF 2 MG PO ×2 (07:57→20:26)
[2024-09-28] MEDS: COREG 6.25 MG PO ×2 (07:57→20:23)
[2024-09-28] MEDS: MYFORTIC DELAYED REL. 720 MG PO ×2 (07:57→20:26)
[2024-09-28] MEDS: LIPITOR 40 MG PO (07:57)
[2024-09-28] MEDS: NSS (PRESERVATIVE FREE) 10 ML IV (07:58)
[2024-09-28] MEDS: PROTONIX IV 40 MG IV (08:01)
--- NOTE | 2024-09-28 08:04 | W.PN.HOSP.TC ---
Today's Communication/Plan
-
Possible bowel obstruction on AXR -- CT ordered (with oral contrast only) and consulted general surgery -- patient did report nausea earlier in the day
Concern for fluid overload in the setting of SHERRY on chronic kidney disease -- proBNP significantly elevated -- IV Lasix ordered given CXR findings in the setting of hypoxia and SOB
Continue antibiotics
Assessment / Plan
Assessment / Plan
Physical Exam
General: Negative Cachectic
HEENT: Oxygen
Respiratory: Faint wheezes bilaterally
Cardiac: Regular Rhythm and S1/S2
GI: Soft, Nontender and Nondistended. Positive bowel sounds.
Neuro: Awake, Alert, AO x 3 and No Motor Deficits
Psych: Calm
Assessment/Plan
Sepsis secondary to the above
Enterococcal UTI and bacteremia
Immunocompromised state with history of renal transplant
-Blood culture 2 sets growing Enterococcus faecalis
-Urine culture also growing enterococci
-Initial CT abdomen pelvis did not show any obstruction/pyelonephritis/abscess
-Zosyn changed to Rocephin and ampicillin this point further susceptibility pending and may require vancomycin
-ID consulted and input noted.
Shortness of Breath 09/27/24 to 09/28/24
Acute Hypoxic Respiratory Insufficiency
Mild Pulmonary Edema
New Small Right Pleural Effusion
-CXR from 09/28/24 showed cardiomegaly with mild pulmonary edema and a new small right pleural effusion, but echo done from same day
and results showed normal LVEF, normal right ventricle, normal pericardium (but CXR was done after echo)
-proBNP 8240 -- could be from kidney disease vs. CHF
-Lasix IV 20 mg for now given renal function
-Okay to stop IVF as per nephrology as per my communication with nephrology via [facility], on 09/28/24
-Given elevated proBNP and new cardiomegaly on CXR, will consider cardiology consult
Possible Bowel Obstruction on Abdominal X-Ray on 09/28/24
-Patient reported nausea earlier in the day on 09/28/24
-CT imaging of the abdomen/pelvis ordered
-Keep NPO for now
-Consulted general surgery
Acute blood loss anemia
R/o GI bleed
-s/p total of 3 u prbc's this hospitalization
-maintain on PPI
-Now NPO given concern for bowel obstruction
-GI EGD on 09/28/24, communication via [facility]: clean based gastric ulcer. needs ppi po bid for 8 weeks. GI office will call him for f/u as he needs a
repeat in 8 weeks -- PPI changed to PO BID
SHERRY on CKD II
s/p Renal Transplant
Metabolic acidosis
-baseline cr of 1.1. then increased to 1.8
-Tacrolimus level 08/19 was 5.8, repeat is pending.
-Maintained on tacrolimus/prednisone/mycophenolate
-Nephrology following.
B/l LE Wounds
ASCVD / PAD
-Stable. Recent admission with amputation / wound debridement.
-Wounds / surgical sites are well appearing without evidence of active infection, erythema, discharge, etc.
-Wound Care eval for continued local care.
-Continue current CV med regimen s/p recent RLE balloon angioplasty.
Benign Hypertension
-BP improved
-Hold nifedipine for now. Holding parameters for Coreg.
DM-II - Uncontrolled
- Stable. Decrease basal insulin dose for now.
- Follow glucose and cover with SSI as needed.
Anxiety
- Stable. Continue clonazepam PRN.
Hyponatremia
-monitor
DVT Prophylaxis: SCDs only.
Code Status: Full Code
Anticipated Discharge: > 48 hours
Subjective/Interval History
-
Date of Service: September 28, 2024
Patient was seen and examined. He reported some shortness of breath overnight, and needed 2 L of NC oxygen overnight due to being 88% on room air.
Objective Data
-
Labs:
Laboratory Results
09/28/24
06:58
Sodium Pending
Potassium Pending
Chloride Pending
Carbon Dioxide Pending
BUN Pending
Creatinine Pending
Glucose Pending
Calcium Pending
Vital Signs:
Vital Signs
Temp Pulse Resp BP Pulse Ox
98.2 F 64 16 168/59 95
09/27/24 23:18 09/28/24 07:57 09/27/24 23:18 09/28/24 07:57 09/28/24 00:30
I&O
09/27/24 09/28/24 09/29/24
06:59 06:59 06:59
Intake Total 3418 / 3418
Output Total 1000 / 1000
Balance 2418 / 2418
[2024-09-28] MEDS: LAC HYDRIN, AM LACTIN LOTION 1 APPLIC TOPICAL ×2 (08:07→23:02)
--- NOTE | 2024-09-28 08:42 | VNURNOTE ---
Chart reviewed. Patient is current with [facility] nursing, PT. Will continue to follow hospital course and DC plans.
[2024-09-28 08:57] LABS: Blood Urea Nitrogen 35 mg/dl (9-20); Calcium 7.6 mg/dl (8.4-10.2); Carbon Dioxide 20 mmol/L (22-30); Chloride 104 mmol/L (98-107); Estimated Creatinine Clearance 46 ml/min; Glucose 188 mg/dl (70-99); Potassium 4.4 mmol/L (3.5-5.1); Sodium 134 mmol/L (135-145)
[2024-09-28 09:39] VITALS: BP 116/57
[2024-09-28 09:45] VITALS: BP 135/58
--- NOTE | 2024-09-28 09:49 | W.PN.UPDATE ---
Update Note
Progress Note Update
smooth clean based gastric ulcer
PPI bid
avoid nsaids
repeat egd in 8 weeks
we will arrange as an outpatient
will sign off call with questions
--- NOTE | 2024-09-28 09:54 | PHA.VAN.FU ---
Vancomycin Assessment / Plan
- Assessment
Renal Function: Stable
WBC's are: Stable
Concomitant Antimicrobials: ampicillin, ceftriaxone
- Dosing Plan
Adjust Regimen to: dosing by level due to SHERRY on CKD
- Monitoring Plan
Random Level: 09/29 0600
- Follow Up
Pharmacy will continue to follow.
Vancomycin Follow UP
- -
Patient Age: 74
Patient Sex: Male
Vancomycin Day #: 2
Indication: Bacteremia
Requesting Provider: Juno
Pertinent Antimicrobial Allergies:
NKDA
Height / Weight:
Height 5 ft 11 in
Actual Weight 106.503 kg
Pertinent Past Medical History: Kidney Transplant, CKD Stage II, T2DM, BMI ~33
- Vital Signs / Lab Results
Temp Pulse Resp BP Pulse Ox
99.4 F 65 24 135/58 93
09/28/24 09:39 09/28/24 09:45 09/28/24 09:45 09/28/24 09:45 09/28/24 09:51
Lab Results - Hematology
09/25/24 09/26/24 09/27/24
21:24 05:36 03:00
WBC 17.3 H 17.7 H 21.9 H
09/27/24
18:31
WBC 20.4 H
Lab Results - Chemistry
09/25/24 09/26/24 09/27/24
21:24 05:35 03:00
BUN 24 H 26 H 34 H
Creatinine 1.4 H 1.7 H 1.8 H
Estimated Creat Clear 48 45
Albumin 4.1
09/28/24
06:58
BUN 35 H
Creatinine 1.8 H
Estimated Creat Clear 46
Albumin
09/25/24
21:24
Lactic Acid 1.5
Lab Results - Urine
09/26/24
01:03
Urine Nitrite (Reflex) Negative
Leukocyte Esterase Rfl 3+ A
Ur Squamous Epith Cells None seen
Microbiology Results
09/25/24 21:55 Blood Culture - Preliminary
Blood/Venous Positive culture in progress
Gram Stain - Preliminary
09/26/24 01:03 Urine Culture - Preliminary
Urine Enterococcus species
09/25/24 21:55 Blood Culture - Preliminary
Blood/Venous Enterococcus species
Gram Stain - Preliminary
[2024-09-28] MEDS: STERILE WATER FOR INJECTION 20 ML IV ×2 (10:26→23:01)
[2024-09-28] MEDS: ROCEPHIN 2000 MG IV ×2 (10:26→23:01)
--- NOTE | 2024-09-28 11:05 | W.PN.NEPH.PH ---
Today's Communication / Plan
-
follow BMP
Assessment/Plan
-
Assessment:
Sepsis
enterococcal bacteremia and UTI
SHERRY on CKD III-baseline cr 1.3-1.5
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
Heme Positive Stools
Acute Blood Loss Anemia
b/l LE Wounds
ASCVD / PAD
Benign Hypertension
Anxiety
h/o syncope from severe orthostatic hypotension
-DM2-with microvascular complications
Anxiety, Insomnia
BPH
Plan:
await enterococcus speciation
PPI per GI
follow BMP
continue IVF today
maintain frausto today for retention
flomax
await FK level
-
-
Date of Service: September 28, 2024
CC / HPI / ROS
-
Chief Complaint:
SHERRY with CKD h/o KTP
History of Present Illness:
SHERRY/Cr stable at 1.8
BP stable
on liquid diet
non oliguric with frausto
WBC slightly better
abx for enterococcus sepsis
Review of Systems:
no n/v
no cp or sob
Labs
-
Labs:
WBC 20.4 10^3/uL (4.8-10.8) H 09/27/24 18:31
RBC 3.14 10^6/uL (4.70-6.10) L 09/27/24 18:31
Hgb 9.3 g/dL (13.0-18.0) L D 09/27/24 18:31
Hct 27.9 % (39.0-52.0) L 09/27/24 18:31
Plt Count 185 10^3/uL (130-400) 09/27/24 18:31
Sodium 134 mmol/L (135-145) L 09/28/24 06:58
Potassium 4.4 mmol/L (3.5-5.1) 09/28/24 06:58
Chloride 104 mmol/L (98-107) 09/28/24 06:58
Carbon Dioxide 20 mmol/L (22-30) L 09/28/24 06:58
BUN 35 mg/dl (9-20) H 09/28/24 06:58
Creatinine 1.8 mg/dL (0.7-1.3) H 09/28/24 06:58
eGFR 39.50 09/28/24 06:58
Glucose 188 mg/dl (70-99) H 09/28/24 06:58
Calcium 7.6 mg/dl (8.4-10.2) L 09/28/24 06:58
Phosphorus 3.5 mg/dl (2.5-4.5) 09/26/24 05:35
Albumin 4.1 g/dl (3.5-5.0) 09/25/24 21:24
Physical Exam
-
Vital Signs:
Vital Signs
Temp Pulse Resp BP Pulse Ox
99.4 F 65 24 135/58 93
09/28/24 09:39 09/28/24 09:45 09/28/24 09:45 09/28/24 09:45 09/28/24 09:51
Cardiovascular:: Regular rate and rhythm
Respiratory:: Bilateral: Coarse
Lung Excursion:: Normal
Abdomen:: Nontender and Soft
Bowel Sounds:: Normal
Extremity Edema:: None: Bilateral:
[2024-09-28 11:35] LABS: Glucose - Point of Care 215 mg/dl (70-99)
--- NOTE | 2024-09-28 12:09 | CM ---
Reviewed the chart notes and spoke with the patient at the bedside. The patient reports living with spouse in a one story home with two steps to enter. The patient has a rolling walker, wheelchair, bsc, and a cane. The patient has been using the
wheelchair due to nwb lle. The patient is currently with [facility]. The patient has been to [facility] in the past. Per PT notes, family wants patient to discharge to home with resumption of [facility] services. CM continues to be available to
patient/family and is monitoring medical plan for needs at discharge.
Plan: Discharge to home when medically stable with resumption of [facility] services.
[2024-09-28] MEDS: FLOMAX 0.4 MG PO (12:54)
[2024-09-28] MEDS: NOVOLOG FLEXPEN-LOW RESISTANCE 2 UNITS SC ×2 (12:54→17:09)
[2024-09-28] MEDS: ZOFRAN 4 MG IV (14:26)
--- NOTE | 2024-09-28 14:37 | W.PN.ID1 ---
Addendum entered and electronically signed by Sandy Fraire MD 09/28/24 15:12:
Ordered TTE for E. faecalis bacteremia.
Original Note:
Date of Service
Date of Service: September 28, 2024
Today's Communication
DC Vancomycin.
Continue Amp/ceftriaxone.
Assessment / Plan
# Enterococcus faecalis bacteremia
# Enterococcus complicated UTI
# Severe sepsis.
Fever trending down.
Leukocytosis
# Upper GIB with blood loss anemia
09/28 EGD: gastric nonbleeding ulcer
# Immunocompromised host: renal transplant on mycophenolate, tacrolimus
# Toxic metabolic encephalopathy resolved
- Follow Repeat blood cx's
- Continue Ampicillin 6g IV q6h + ceftriaxone 2gIV q12; d2
-DC Vancomycin
- Trend temps/wbc.
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
Diabetes with neuropathy and nephropathy
ESRD; previously on HD
Living related donor renal transplant 10/31/2022 at [place]
CKD3
HTN
Dyslipidemia
CAD
CVA
PAD s/p RLE endovascular intervention (08/18/24)
YASH on CPAP
Anxiety/depression
Macular degeneration
Narcolepsy
ADHD
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
Appendectomy
Right AV fistula
TURP
Knee arthroscopic surgery
Chief Complaint
-: UTI and Bacteremia
Subjective / Review of Systems
Feeling better.
Vital Signs / Physical Exam
Vital Signs
Vital Signs
Temp Pulse Resp BP Pulse Ox
99.4 F 65 24 135/58 93
09/28/24 09:39 09/28/24 09:45 09/28/24 09:45 09/28/24 09:45 09/28/24 09:51
Physical Exam
Constitutional: No Acute Distress and Comfortable
Cardiovascular: Regular Rate and S1/S2
Pulmonary: Clear
Gastrointestinal: Soft, Non Tender and Non Distended
Genito-Urinary: Other (transplant kidney nontender); Negative Suprapubic Tenderness
Extremities: Negative Edema
Neurological: AO x 3
Objective Data
Lab Data
Lab Results
09/27/24 18:31
09/28/24 06:58
Estimated Creat Clear 46 ml/min 09/28/24 06:58
Lactic Acid 1.5 mmol/L (0.7-2.0) 09/25/24 21:24
Total Bilirubin 0.6 mg/dl (0.2-1.3) 09/25/24 21:24
AST 16 U/L (17-59) L 09/25/24 21:24
ALT 16 U/L (0-50) 09/25/24 21:24
Alkaline Phosphatase 80 U/L (38-126) 09/25/24 21:24
Most recent labs reviewed.
Micro Results:
09/28/24 12:37 Blood Culture - Pending
Blood/Venous
09/25/24 21:55 Blood Culture - Preliminary
Blood/Venous Enterococcus faecalis
Gram Stain - Preliminary
09/25/24 21:55 Blood Culture - Preliminary
Blood/Venous Enterococcus faecalis
Gram Stain - Preliminary
09/26/24 01:03 Urine Culture - Preliminary
Urine Enterococcus species
09/28/24 06:58 Blood Culture - Pending
Blood/Venous
09/25/24 21:24 Influenza Types A & B (MELVIN) - Final
Nasal Swab Negative for Influenza A & B, NAAT
Negative results must be combined with clinical observations
and patient history.
Nucleic Acid Amplification test (NAAT)performed on the
[employer] platform.
09/26/24 CT a/p: Atrophic [place] kidneys with right lower quadrant transplant kidney. There is no evidence of renal calculus. There is mild circumferential urinary bladder wall thickening which can be seen with seen with cystitis. Recommend
correlation with urinalysis. Mild colonic stool burden without evidence of bowel obstruction.
09/25/24 CXR: No acute cardiopulmonary process.
Care Review
Plan reviewed with: Physician (Dr. Main)
--- NOTE | 2024-09-28 14:54 | WOUNDNOTE ---
LEFT PLANTAR FOOT
--- NOTE | 2024-09-28 14:55 | WOUNDNOTE ---
RIGHT FOOT MET AMP SITE
--- NOTE | 2024-09-28 14:55 | WOUNDNOTE ---
RIGHT MEDIAL FOOT
[2024-09-28 15:00] VITALS: BP 171/66
--- NOTE | 2024-09-28 15:00 | PTCARENOTE ---
Patient c/o of nausea and has mild abd distention. Patient with 2 large loose BMs. Patient c/o of SOB with audible wheeze, requiring 3 L o2, pulse ox 91%. Bp 170/68. Pt also more drowsy but awake to verbal stimuli. MD made aware. IV Zofran, labs,
CXR and ABD Xray ordered.
--- NOTE | 2024-09-28 15:09 | WOUNDNOTE ---
[facility] RN note: Patient admitted with confusion and weakness
See H&P for complete history.
PMH: HTN, DM 2, renal transplant recent R transmet amputation. Follows with Dr. Robins and current with [facility]
Wound Location and type/assessment: Patient admitted with healing right transmet site. Scar is clean, approximated, not drainage. Left plantar foot with scabbed wound that patient states he likes to keep covered. Patient demonstrated good ability
to turn in bed. Sacrum and heel intact.
Appetite: Reports fair
Pressure redistribution devices in place: [employer] Max Air, heels off-loaded with pillows or air cushion under calves.
Plan: Betadine applied to right transmet site and covered with ABD and jaxon. Left plantar wound covered with silicone border foam. Patient states he plans to continue following with podiatry after discharge. RN, Jason given updated.
Will confirm orders with hospitalist and update nurse.
Note to case management of equipment requested for discharge:
Recommend follow up at wound care center upon discharge.
[2024-09-28 16:38] LABS: NT-proBNP 8240 pg/ml
[2024-09-28 17:02] LABS: Glucose - Point of Care 232 mg/dl (70-99)
[2024-09-28] MEDS: LASIX 20 MG IV ×2 (17:52→18:54)
[2024-09-28] MEDS: OMNIPAQUE 50 ML PO (17:56)
[2024-09-28] MEDS: DUONEB 3 ML INH (19:09)
[2024-09-28] MEDS: PROTONIX 40 MG PO (20:26)
[2024-09-28 22:09] LABS: Troponin I 0.028 ng/ml
[2024-09-28 22:33] LABS: Glucose - Point of Care 247 mg/dl (70-99)
[2024-09-28] MEDS: LANTUS 0.12 UNITS SC (23:00)
[2024-09-28 23:26] VITALS: BP 166/69
[2024-09-28] MEDS: FLUSH (NSS) 3 FLUSH IV (23:30)
[2024-09-28 23:34] LABS: Hematocrit 25.3 % (39.0-52.0); Hemoglobin 8.5 g/dL (13.0-18.0)
[2024-09-29] VITALS (8 sets, daily range): BP systolic 154–186; BP diastolic 54–70; PULSE 58; O2SAT 94; BMI 32.0
[2024-09-29 05:32] LABS: % Basophils 0.2 % (0-2); % Eosinophils 0.1 % (0-6); % Immature Granulocytes 0.8 % (0-0.5); % Lymphocytes 5.8 % (20.5-51.1); % Monocytes 8.3 % (1.7-9.3); % Neutrophils 84.8 % (42.2-75.2); Absolute Immature Granulocytes 0.1 10^3/uL (0-0.05); Absolute Lymphocytes 0.8 10^3/uL (1.2-3.4); Absolute Monocytes 1.1 10^3/uL (0.1-0.6); Absolute Neutrophils 11.6 10^3/uL (1.4-6.5); Hematocrit 25.9 % (39.0-52.0); Hemoglobin 8.4 g/dL (13.0-18.0); Mean Corp Hgb Conc. 32.4 g/dL (33.0-37.0); Mean Corpuscular Hgb 28.5 pg (27.0-31.0); Mean Corpuscular Volume 87.8 fL (80.0-94.0); Mean Platelet Volume 11.7 fL (7.4-10.4); Nucleated Red Blood Cells % 0.1 % (-); Platelet Count 190 10^3/uL (130-400); Red Blood Cell Count 2.95 10^6/uL (4.70-6.10); Red Cell Dist. Width 15.9 % (11.5-14.5); White Blood Cell Count 13.7 10^3/uL (4.8-10.8)
[2024-09-29] MEDS: AMPICILLIN 108 MG IV ×4 (05:48→23:51)
[2024-09-29] MEDS: FLUSH (NSS) 2 FLUSH IV ×2 (05:48→22:10)
[2024-09-29 05:56] LABS: Blood Urea Nitrogen 36 mg/dl (9-20); Calcium 7.9 mg/dl (8.4-10.2); Carbon Dioxide 20 mmol/L (22-30); Chloride 103 mmol/L (98-107); Estimated Creatinine Clearance 52 ml/min; Glucose 199 mg/dl (70-99); Potassium 3.9 mmol/L (3.5-5.1); Sodium 135 mmol/L (135-145)
[2024-09-29 06:10] LABS: Troponin I 0.036 ng/ml
[2024-09-29 08:09] LABS: Glucose - Point of Care 214 mg/dl (70-99)
--- NOTE | 2024-09-29 08:16 | W.PN.HOSP.TC ---
Today's Communication/Plan
-
Continue IV Lasix, antibiotics
Amlodipine added today (only for today), resume Nifedipine from tomorrow
PRN Hydralazine is in place for high blood pressure
Assessment / Plan
Assessment / Plan
Physical Exam
General: Negative Cachectic
HEENT: Oxygen
Respiratory: Faint wheezes bilaterally
Cardiac: Regular Rhythm and S1/S2
GI: Soft, Nontender and Nondistended. Positive bowel sounds.
Neuro: Awake, Alert, AO x 3 and No Motor Deficits
Psych: Calm
Assessment/Plan
Sepsis secondary to the above
Enterococcal UTI and bacteremia
Immunocompromised state with history of renal transplant
-Blood culture 2 sets growing Enterococcus faecalis
-Urine culture also growing enterococci
-Initial CT abdomen pelvis did not show any obstruction/pyelonephritis/abscess
-Zosyn changed to Rocephin and ampicillin this point further susceptibility pending and may require vancomycin
-TTE shows no clear vegetation
-ID consulted and input noted.
Shortness of Breath 09/27/24 to 09/28/24
Acute Hypoxic Respiratory Insufficiency
SEVERE ACUTE INTERSTITIAL and ALVEOLAR CARDIOGENIC PULMONARY EDEMA on CT Chest
Small bilateral pleural effusions with adjacent compressive bibasilar subsegmental atelectasis.
-CXR from 09/28/24 showed cardiomegaly with mild pulmonary edema and a new small right pleural effusion, but echo done from same day
and results showed normal LVEF, normal right ventricle, normal pericardium (but CXR was done after echo)
-proBNP 8240 -- could be from kidney disease vs. CHF
-Lasix IV 20 mg - 2 doses given on 09/28/24 with improvement in symptoms
-Continue Lasix IV 20 mg BID for now
-Resume antihypertensives (Nifedipine) as high blood pressure can possibly contribute to the pulmonary edema
-Okay to stop IVF as per nephrology as per my communication with nephrology via [employer], on 09/28/24
-Given elevated proBNP and new cardiomegaly on CXR, and suspected new-onset HFpEF, cardiology consulted
Possible Bowel Obstruction on Abdominal X-Ray on 09/28/24 -- RULED OUT
-Patient reported nausea earlier in the day on 09/28/24
-CT imaging of the abdomen/pelvis ordered showing no bowel obstruction
-Okay to resume diet
-No need for general surgery consultation at this time
Mild gaseous distention of the stomach with 2 mildly gas-distended loops of small bowel in the left hemiabdomen
-Discussed with surgery, patient's large gastric bubble -- may have some delayed gastric emptying due to his ulcer
-Can consider UGI if patient has symptoms of indigestion/nausea/vomiting
Acute blood loss anemia
R/o GI bleed
-s/p total of 3 u prbc's this hospitalization
-maintain on PPI
-Now NPO given concern for bowel obstruction
-GI EGD on 09/28/24, communication via [employer]: clean based gastric ulcer. needs ppi po bid for 8 weeks. GI office will call him for f/u as he needs a
repeat in 8 weeks -- PPI changed to PO BID
SHERRY on CKD II
s/p Renal Transplant
Metabolic acidosis
-baseline cr of 1.1. then increased to 1.8 -- improved with IV diuresis as above
-Tacrolimus level 08/19 was 5.8, repeat is pending.
-Maintained on tacrolimus/prednisone/mycophenolate
-Nephrology following.
B/l LE Wounds
ASCVD / PAD
-Stable. Recent admission with amputation / wound debridement.
-Wounds / surgical sites are well appearing without evidence of active infection, erythema, discharge, etc.
-Wound Care eval for continued local care.
-Continue current CV med regimen s/p recent RLE balloon angioplasty.
Small volume of abdominal and pelvic ascites
Benign Hypertension
-Amlodipine 1x dose added on 09/29/24 -- resume home Nifedipine 30 mg daily (with parameters)
-Holding parameters for Coreg.
-prn Hydralazine
Mild hepatomegaly on CT Imaging
Mild duodenal wall thickening (possibly peptic ulcer disease) on CT Imaging
Mild wall thickening in the ascending and transverse colon suggesting a mild colitis on CT Imaging
DM-II - Uncontrolled
- Stable. Decrease basal insulin dose for now.
- Follow glucose and cover with SSI as needed.
Anxiety
- Stable. Continue clonazepam PRN.
Hyponatremia
-monitor
DVT Prophylaxis: SCDs only.
Code Status: Full Code
Anticipated Discharge: > 48 hours
Subjective/Interval History
-
Date of Service: September 29, 2024
Patient was seen and examined. His shortness of breath has improved, patient's nurse said he is looking better today.
Objective Data
-
Labs:
Laboratory Results
09/28/24 09/29/24 09/29/24
23:20 05:04 05:05
WBC 13.7 H
Hgb 8.5 L 8.4 L
Hct 25.3 L 25.9 L
Plt Count 190
Sodium 135
Potassium 3.9
Chloride 103
Carbon Dioxide 20 L
BUN 36 H
Creatinine 1.6 H
Glucose 199 H
Calcium 7.9 L
Vital Signs:
Vital Signs
Temp Pulse Resp BP Pulse Ox
98.7 F 68 19 154/66 98
09/29/24 03:31 09/29/24 03:31 09/29/24 03:31 09/29/24 03:31 09/29/24 03:31
I&O
09/28/24 09/29/24 09/30/24
06:59 06:59 06:59
Intake Total 3418 / 3418 308 / 308
Output Total 1000 / 1000 2120 / 2120
Balance 2418 / 2418 -1812 / -1812
[2024-09-29] MEDS: NOVOLOG FLEXPEN-LOW RESISTANCE 2 UNITS SC ×3 (08:52→17:31)
[2024-09-29] MEDS: PROTONIX 40 MG PO ×2 (08:52→20:33)
[2024-09-29] MEDS: LIPITOR 40 MG PO (08:52)
[2024-09-29] MEDS: FLOMAX 0.4 MG PO (08:53)
[2024-09-29] MEDS: DELTASONE 5 MG PO (08:53)
[2024-09-29] MEDS: STERILE WATER FOR INJECTION 20 ML IV ×2 (08:53→22:09)
[2024-09-29] MEDS: LAC HYDRIN, AM LACTIN LOTION 1 APPLIC TOPICAL ×2 (08:53→20:34)
[2024-09-29] MEDS: MYFORTIC DELAYED REL. 720 MG PO ×2 (08:53→20:31)
[2024-09-29] MEDS: PROGRAF 2 MG PO ×2 (08:53→20:32)
[2024-09-29] MEDS: COREG 6.25 MG PO ×2 (08:53→20:32)
[2024-09-29] MEDS: ROCEPHIN 2000 MG IV ×2 (08:53→22:09)
[2024-09-29] MEDS: LASIX 20 MG IV ×2 (10:10→15:40)
[2024-09-29] MEDS: NORVASC 2.5 MG PO (10:10)
[2024-09-29 10:27] LABS: Troponin I 0.031 ng/ml
--- NOTE | 2024-09-29 12:11 | CM ---
Reviewed the chart notes and spoke with the patient at the bedside. PT recommending SNF. Discussed are SNFs. Patient interested in [facility] in [place]. Explained that acute rehab may not be appropriate, but CM did send
referrals via [employer] [facility]. CM continues to be available to patient/family and is monitoring medical plan for needs at discharge.
Plan: Discharge to Acute vs SNF when medically stable. No precert required.
--- NOTE | 2024-09-29 12:17 | W.PN.NEPH.PH ---
Today's Communication / Plan
-
lasix
Assessment/Plan
-
Assessment:
Sepsis
enterococcal bacteremia and UTI
SHERRY on CKD III-baseline cr 1.3-1.5
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
Heme Positive Stools
Acute Blood Loss Anemia
b/l LE Wounds
ASCVD / PAD
Benign Hypertension
Anxiety
h/o syncope from severe orthostatic hypotension
-DM2-with microvascular complications
Anxiety, Insomnia
BPH
Plan:
lasix 20mg IV
PPI per GI
follow BMP
maintain frausto today for retention
flomax
-
-
Date of Service: September 29, 2024
CC / HPI / ROS
-
Chief Complaint:
SHERRY with CKD h/o KTP
History of Present Illness:
SHERRY/Cr stable at 1.6
BP stable
non oliguric with frausto
abx for enterococcus sepsis
FK 5.2
Review of Systems:
no n/v
no CP
mild SOB
Labs
-
Labs:
WBC 13.7 10^3/uL (4.8-10.8) H 09/29/24 05:04
RBC 2.95 10^6/uL (4.70-6.10) L 09/29/24 05:04
Hgb 8.4 g/dL (13.0-18.0) L 09/29/24 05:04
Hct 25.9 % (39.0-52.0) L 09/29/24 05:04
Plt Count 190 10^3/uL (130-400) 09/29/24 05:04
Sodium 135 mmol/L (135-145) 09/29/24 05:05
Potassium 3.9 mmol/L (3.5-5.1) 09/29/24 05:05
Chloride 103 mmol/L (98-107) 09/29/24 05:05
Carbon Dioxide 20 mmol/L (22-30) L 09/29/24 05:05
BUN 36 mg/dl (9-20) H 09/29/24 05:05
Creatinine 1.6 mg/dL (0.7-1.3) H 09/29/24 05:05
eGFR 45.50 09/29/24 05:05
Glucose 199 mg/dl (70-99) H 09/29/24 05:05
Calcium 7.9 mg/dl (8.4-10.2) L 09/29/24 05:05
Phosphorus 3.5 mg/dl (2.5-4.5) 09/26/24 05:35
Ulr-[id number] Pept 8240 pg/ml 09/28/24 15:50
Albumin 4.1 g/dl (3.5-5.0) 09/25/24 21:24
Physical Exam
-
Vital Signs:
Vital Signs
Temp Pulse Resp BP Pulse Ox
99.2 F 58 16 176/64 94
09/29/24 07:18 09/29/24 11:30 09/29/24 11:30 09/29/24 11:30 09/29/24 11:30
Cardiovascular:: Regular rate and rhythm
Respiratory:: Bilateral: Coarse
Lung Excursion:: Normal
Abdomen:: Nontender and Soft
Bowel Sounds:: Normal
Extremity Edema:: +1: Bilateral:
[2024-09-29] MEDS: APRESOLINE 5 MG IV (12:28)
[2024-09-29 12:34] LABS: Glucose - Point of Care 215 mg/dl (70-99)
--- NOTE | 2024-09-29 14:02 | W.PN.ID1 ---
Date of Service
Date of Service: September 29, 2024
Today's Communication
Continue amp/ceftriaxone.
Assessment / Plan
# Enterococcus faecalis bacteremia
# Enterococcus complicated UTI
# Severe sepsis.
Fever resolved.
Leukocytosis trending down
# Upper GIB with blood loss anemia
09/28 EGD: gastric nonbleeding ulcer
# Immunocompromised host: renal transplant on mycophenolate, tacrolimus
# Toxic metabolic encephalopathy resolved
- Repeat blood cx's neg to date
-TTE no gross vege
- Continue Ampicillin 6g IV q6h + ceftriaxone 2gIV q12; d3 for now
When stable for dc, will transition to po abx.
- Trend wbc.
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
Diabetes with neuropathy and nephropathy
ESRD; previously on HD
Living related donor renal transplant 10/31/2022 at [place]
CKD3
HTN
Dyslipidemia
CAD
CVA
PAD s/p RLE endovascular intervention (08/18/24)
YASH on CPAP
Anxiety/depression
Macular degeneration
Narcolepsy
ADHD
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
Appendectomy
Right AV fistula
TURP
Knee arthroscopic surgery
Chief Complaint
-: UTI and Bacteremia
Subjective / Review of Systems
Doing OK
Vital Signs / Physical Exam
Vital Signs
Vital Signs
Temp Pulse Resp BP Pulse Ox
99.2 F 59 16 183/68 94
09/29/24 07:18 09/29/24 12:28 09/29/24 11:30 09/29/24 12:28 09/29/24 11:30
Physical Exam
Constitutional: No Acute Distress and Comfortable
Cardiovascular: Regular Rate and S1/S2
Pulmonary: Rales (bases)
Gastrointestinal: Soft, Non Tender, Non Distended and Normal Bowel Sounds
Neurological: AO x 3
Objective Data
Lab Data
Lab Results
09/29/24 05:04
09/29/24 05:05
Estimated Creat Clear 52 ml/min 09/29/24 05:05
Lactic Acid 1.5 mmol/L (0.7-2.0) 09/25/24 21:24
Total Bilirubin 0.6 mg/dl (0.2-1.3) 09/25/24 21:24
AST 16 U/L (17-59) L 09/25/24 21:24
ALT 16 U/L (0-50) 09/25/24 21:24
Alkaline Phosphatase 80 U/L (38-126) 09/25/24 21:24
Most recent labs reviewed.
Micro Results:
09/26/24 01:03 Urine Culture - Final
Urine Enterococcus faecalis
09/28/24 12:37 Blood Culture - Preliminary
Blood/Venous No Growth in 24 hours- Final report to follow
09/28/24 06:58 Blood Culture - Preliminary
Blood/Venous No Growth in 24 hours- Final report to follow
09/25/24 21:55 Blood Culture - Preliminary
Blood/Venous Enterococcus faecalis
Gram Stain - Preliminary
09/25/24 21:55 Blood Culture - Preliminary
Blood/Venous Enterococcus faecalis
Gram Stain - Preliminary
09/25/24 21:24 Influenza Types A & B (MELVIN) - Final
Nasal Swab Negative for Influenza A & B, NAAT
Negative results must be combined with clinical observations
and patient history.
Nucleic Acid Amplification test (NAAT)performed on the
[employer] platform.
09/26/24 CT a/p: Atrophic habematolel kidneys with right lower quadrant transplant kidney. There is no evidence of renal calculus. There is mild circumferential urinary bladder wall thickening which can be seen with seen with cystitis. Recommend
correlation with urinalysis. Mild colonic stool burden without evidence of bowel obstruction.
09/25/24 CXR: No acute cardiopulmonary process.
--- NOTE | 2024-09-29 14:56 | PN.CDI ---
CDI
- -
CDI:
Physician Documentation Request
Admit Date: 09/26/24 03:30
Dear Doctor Jose David,
Patient admitted for sepsis.
09/28 Nephrology PN: 'SHERRY on CKD III-baseline cr 1.3-1.5'
09/29 Hospitalist PN: 'SHERRY on CKD II s/p Renal Transplant'
Laboratory Tests
08/24/24 08/25/24 09/25/24
08:29 06:17 21:24
Creatinine 1.3 1.1 1.4 H
eGFR 58.37 > 60.00 53.40
Clarify which of the following accurately represents the patient's renal status:
SHERRY on CKD 3
SHERRY on CKD 2
Other
Stages of Chronic Kidney Disease*
Level Description GFR
G1 Normal or High >90
G2 Mildly decreased 60-89
G3a Mildly to moderately decreased 45-59
G3b Moderately to severely decreased 30-44
G4 Severely decreased 15-29
G5 Kidney failure <15
Use of terms such as suspected, likely, concern for, or probable (associated with a specific diagnosis that is being evaluated, monitored, or treated as if it exists) are acceptable and can be coded in the inpatient setting, when documented at the
time of discharge.
Thank you,
Vi Lyles RN, BSN
CDI Specialist
Available via [employer]
Please use your independent medical judgment in providing your response.
*Source: Kidney Disease: Improving Global Outcomes (KDIGO) 2012
--- NOTE | 2024-09-29 15:03 | CON.CAR ---
Addendum entered and electronically signed by Daniel Flores MD 09/29/24 16:05:
Complex 74-year-old man, longstanding diabetes with nephropathy and other diabetic complications resulting in end-stage renal disease followed by renal transplantation in October 2022. Admitted September 26 with weakness and toxic metabolic encephalopathy
associated with melena, hemoglobin 6.5 and enterococcal bacteremia. He still feels confused, major complaint is dyspnea. Troponin is 0.031, proBNP yesterday is 8240, has evidence of heart failure on CT scan of the abdomen pelvis with small
bilateral effusions. He has received IV furosemide x 2. Is received 3 units of packed cells. He had been evaluated in our office in 2022 prior to renal transplantation. Complex background history of longstanding diabetes, PAD with right SFA CLINICAL BIOSTATISTICIAN
August 18 and right foot transmetatarsal amputation.
PMH: Longstanding diabetes, end-stage renal disease, peripheral arterial disease with dry gangrene of the right foot, CKD 3, hypertension, hyperlipidemia, sleep apnea, anxiety/depression, macular degeneration, nonobstructive CAD by catheterization
in February 2022
PSH: Renal transplant, right transmetatarsal amputation, percutaneous right lower extremity revascularization, AV fistula, TURP, arthroscopic knee surgery
Current meds: Atorvastatin 40 mg, carvedilol 6.25 mg twice daily, mycophenolate, prednisone 5 mg a day, Lantus, tacrolimus 2 g every 12 hours, ceftriaxone, ampicillin, pantoprazole, Flomax, furosemide 20 IV twice daily, nifedipine ER 30 mg a day
183/68, pulse 59, resp rate 16, afebrile, sats 94%, intake and output -1.8 L, weight is 104.1 kg, down 2.4 kg, somewhat tachypneic, few crackles in bases, neck veins not markedly elevated, no obvious murmurs, trace to 1+ edema
White count is 13.7, hemoglobin is 8.4, had been 6.5 on admission, creatinine is 1.6 BUN is 36 potassium is 3.9
Echo: Sinus rhythm, EF 65-70%, mild LVH, mild MR, mild TR, pulmonary artery pressure 50-55 mmHg, no vegetation seen
ECG: Sinus rhythm, pulse 62, septal TN, LVHImpression:
Impression:
Enterococcal bacteremia
Toxic metabolic encephalopathy, improving
Acute heart failure with preserved EF, proBNP 8240
Living related renal transplant 2022
Longstanding diabetes type II
PAD, SFA CLINICAL BIOSTATISTICIAN July 2024 with transmetatarsal amputation right foot
Blood loss anemia, status post 3 units packed red cells
SHERRY, peak creatinine 1.8
Gastric ulcer
Plan:
He presents with acute HFpEF in the setting of bacteremia and blood loss anemia presumably related to gastric ulcer and requiring 3 units of packed cells.
He is still dyspneic with volume overload, but reportedly more comfortable than on admission.
Continue to treat with IV furosemide.
Not anxious to start SGLT2 antagonist at this time related to drug interactions. Defer to renal as to whether or not SGLT2 inhibitor is warranted this should be considered. Also would hold URSULA/ARB/ARNI/spironolactone.
Troponin was detectable, we can consider an outpatient sestamibi study or PET/CT, but suspect current troponin is nonischemic myocardial injury related to sepsis.
Discussed with ID, transesophageal echo for bacteremia not required at present.
He presents with acute HFpEF likely related to blood transfusion, sepsis, fluid resuscitation.
Currently he is under treatment for enterococcal bacteremia.
GI blood loss presumably related to gastric ulcer, plus DAPT following recent CLINICAL BIOSTATISTICIAN of right SFA.
We will continue to follow.
Original Note:
Consultation
Consultation Request
Date/Time Consultation Requested: 09/28/24 at 1900
Date/Time Consultation Performed: 09/29/24 at 1423
Requesting Provider: Dr. Main
Performing Provider: Dr. RIGOBERTO Flores
Reason for Consultation: Acute HF, bacteremia
Medical History
-
History of Present Illness:
Patient came to ER on 09/25/2024 with confusion and weakness following recent admission for right TMA and was admitted with heme positive anemia and concern for sepsis, cardiology is now consulted for possible acute HF. Patient had just been
admitted from 08/14/2024 until 08/25/2024 with diabetic foot wounds and had a right TMA. He was discharged to home and family brought him back in with increasing confusion. He was found to have Enterococcus bacteremia and ID is following. TTE
without obvious vegetation. Patient has chronically immunocompromised state due to previous renal transplant and chronic tacrolimus and mycophenolate therapy. He was additionally found to be anemic with Hgb 7.4. Patient was seen by GI and had
upper endoscopy that showed gastric ulcer on 09/28/2024. Patient was then noted to have increasing SOB and on CT abd/pelvis to look for possible SBO had evidence of pulmonary edema and cardiology is now consulted. Echo as noted above. There is no
known history of CHF and patient was not taking a diuretic prior to admission.
PMH:
Chronically immunocompromised following renal transplant and chronic tacrolimus and mycophenolate therapy
CKD 3B
Status post living relative (daughter) renal transplant at [place] 10/2022
DM 2
Past Medical History
Past Medical History: Other (in HPI)
Past Surgical History: Appendectomy and Other (fistula formation/revision)
Social History
Tobacco: Former Smoker
Alcohol: None
Drug: Other (medical marijuana)
Personal:
Living: With Family
Family History
Family History: Cancer
Allergies / Home Medications
Allergy/AdvReac Type Severity Reaction Status Date / Time
No Known Allergies Allergy Verified 09/25/24 21:15
�Medication �Instructions �Recorded �Confirmed �Type
carvedilol 6.25 mg tablet 6.25 mg PO BID Heart 07/23/23 09/26/24 History
Disease/Condition
prednisone 5 mg tablet 5 mg PO DAILY Anti-Inflammatory 07/23/23 08/14/24 History
tacrolimus 1 mg capsule, 2 mg PO Q12H renal transplant 07/23/23 09/26/24 History
immediate-release (Prograf)
vibegron 75 mg tablet 75 mg PO DAILY Urinary Issue 07/23/23 08/14/24 History
aspirin 81 mg tablet,delayed 81 mg PO DAILY Blood Clot 08/14/24 09/26/24 History
release Prevention/Tx
atorvastatin 40 mg tablet (Lipitor) 40 mg PO DAILY High Cholesterol 08/14/24 09/26/24 History
magnesium oxide 400 mg PO DAILY Supplement 08/14/24 09/26/24 History
mycophenolate sodium 180 mg 720 mg PO BID IMMUNOSUPPRESSANT 08/14/24 08/14/24 History
tablet,delayed release
omega-3 acid ethyl esters 1 gram 2 cap PO BID Supplement 08/14/24 08/14/24 History
capsule (Lovaza)
clopidogrel 75 mg tablet 75 mg PO DAILY #90 tabs 08/18/24 Rx
acetaminophen 325 mg tablet 650 mg (2 x 325 mg) PO Q4HPRN PRN 08/25/24 Rx
mild pain or temp > 100.4 F #100
tabs
cephalexin 500 mg capsule 500 mg PO QID #40 caps 08/25/24 Rx
clonazepam 1 mg tablet 1 mg PO BIDPRN PRN anxiety #4 tabs 08/25/24 08/14/24 Rx
insulin glargine 100 unit/mL (3 20 unit (0.2 mL) SC HS diabetes 08/25/24 09/26/24 Rx
mL) subcutaneous pen (Lantus #0 mL
Solostar U-100 Insulin)
insulin lispro 100 unit/mL 13 unit (0.13 mL) SC AC Diabetes 08/25/24 09/26/24 Rx
subcutaneous pen (Humalog KwikPen #0 mL
(U-100) Insulin)
nifedipine 30 mg tablet,extended 30 mg PO DAILY #30 tabs 08/25/24 09/26/24 Rx
release
Review of Systems
-
History Source: Patient and Family (Dr. Flores talked to son, Daniel, by phone)
All other systems: Negative unless noted
Physical Exam
Vital Signs
Temp Pulse Resp BP Pulse Ox
99.2 F 58 16 160/63 94
09/29/24 07:18 09/29/24 14:19 09/29/24 11:30 09/29/24 14:19 09/29/24 11:30
GEN: NAD. AAO to person, place and situation
HEENT: EOMI, MMM
LUNGS: 3 L NC. B/L rales and with slight expiratory wheeze
CV: SR. Reg, S1/S2, no murmur
ABD: soft, BS+, NT, ND
EXT: s/p right TMA with healing wound and no edema or drainage. LLE with quarter-sized plantar wound. No edema B/L
NEURO: Gross non-focal
SKIN: No rash
Lab Results
09/29/24 05:04
09/29/24 05:05
Troponin I 0.031 ng/ml 09/29/24 09:47
Vdl-X-Upgjceiywzs Pept 8240 pg/ml 09/28/24 15:50
Impression / Plan
-
PCP: Dr. Suarez
Card: Dr. Ambriz
Impression:
Admitted with confusion and weakness 09/25/2024
Recent admission for diabetic foot wound and right transmetatarsal amputation 08/14/2024 until 08/25/24
Sepsis
Enterococcal UTI and bacteremia
Chronically immunocompromised following renal transplant and chronic tacrolimus and mycophenolate therapy
Acute HFpEF
Acute blood loss/heme positive anemia
SHERRY on CKD 3B
Status post living relative (daughter) renal transplant at [place] 10/2022
DM 2
Echo 09/28/2024: EF 65 to 70%, mild concentric LVH, mild MR, mild TR with PAP 50 to 55 mmHg, no clear evidence of vegetation identified and consider JC if clinically indicated
Plan:
-Patient came to ER on 09/25/2024 with confusion and weakness following recent admission for right TMA and was admitted with heme positive anemia and concern for sepsis, cardiology is now consulted for possible acute HF. Patient had just been
admitted from 08/14/2024 until 08/25/2024 with diabetic foot wounds and had a right TMA. He was discharged to home and family brought him back in with increasing confusion. He was found to have Enterococcus bacteremia and ID is following. TTE
without obvious vegetation. Patient has chronically immunocompromised state due to previous renal transplant and chronic tacrolimus and mycophenolate therapy. He was additionally found to be anemic with Hgb 7.4. Patient was seen by GI and had
upper endoscopy that showed gastric ulcer on 09/28/2024. Patient was then noted to have increasing SOB and on CT abd/pelvis to look for possible SBO had evidence of pulmonary edema and cardiology is now consulted. Echo as noted above. There is no
known history of CHF and patient was not taking a diuretic prior to admission.
-ECG reviewed by me is SR without acute ST changes
-Patient with newly diagnosed acute HFpEF following 7 L IVF's this admission. IVF now on hold. Nephrology is following for SHERRY on CKD 3B in a patient with a history of previous renal transplant.
-Weight is down 5 pounds overnight with Lasix 20 mg IV BID. Patient was not taking a diuretic prior to admission
-Echo as noted above shows preserved EF without significant valve disease
-Outpatient dose of Coreg 6.25 mg BID has been continued
-Patient is not chronically on URSULA/ARB/ARNI/aldosterone antagonist due to SHERRY on CKD 3B with previous renal transplant
-Initial hypotension has improved and could consider initiation of a regimen of nitrates and hydralazine
-Will hold off on adding SGLT2 due to interaction between Farxiga and tacrolimus
-Troponin as high as 0.036 yesterday, but no CP or ECG changes. No WMA on echo. Will manage as nonischemic myocardial injury troponin elevation
-Patient with Enterococcus bacteremia. TTE without evidence of vegetation. Patient could be considered for JC and this was discussed with his family by phone, but no indication from ED at this point that he will need that procedure so we will
hold off
[2024-09-29 17:31] LABS: Glucose - Point of Care 239 mg/dl (70-99)
[2024-09-29 22:01] LABS: Glucose - Point of Care 262 mg/dl (70-99)
[2024-09-29] MEDS: LANTUS 0.12 UNITS SC (22:08)
[2024-09-29] MEDS: KLONOPIN 1 MG PO (22:34)
[2024-09-30] MEDS: APRESOLINE 5 MG IV (02:23)
[2024-09-30] MEDS: FLUSH (NSS) 2 FLUSH IV (02:25)
[2024-09-30 03:05] VITALS: BP 170/65
[2024-09-30 05:02] VITALS: BMI 31.8
[2024-09-30] MEDS: AMPICILLIN 108 MG IV ×3 (05:42→17:01)
[2024-09-30 06:09] LABS: % Basophils 0.2 % (0-2); % Eosinophils 1.8 % (0-6); % Immature Granulocytes 1.1 % (0-0.5); % Lymphocytes 9.2 % (20.5-51.1); % Monocytes 10.1 % (1.7-9.3); % Neutrophils 77.6 % (42.2-75.2); Absolute Eosinophils 0.2 10^3/uL (0-0.7); Absolute Immature Granulocytes 0.1 10^3/uL (0-0.05); Absolute Lymphocytes 0.9 10^3/uL (1.2-3.4); Absolute Neutrophils 7.6 10^3/uL (1.4-6.5); Hematocrit 27.1 % (39.0-52.0); Hemoglobin 8.7 g/dL (13.0-18.0); Mean Corp Hgb Conc. 32.1 g/dL (33.0-37.0); Mean Corpuscular Volume 87.1 fL (80.0-94.0); Nucleated Red Blood Cells % 0.2 % (-); Platelet Count 206 10^3/uL (130-400); Red Blood Cell Count 3.11 10^6/uL (4.70-6.10); Red Cell Dist. Width 15.7 % (11.5-14.5); White Blood Cell Count 9.7 10^3/uL (4.8-10.8)
[2024-09-30 06:29] LABS: Blood Urea Nitrogen 36 mg/dl (9-20); Calcium 8.4 mg/dl (8.4-10.2); Carbon Dioxide 24 mmol/L (22-30); Chloride 102 mmol/L (98-107); Estimated Creatinine Clearance 58 ml/min; Glucose 227 mg/dl (70-99); Potassium 3.7 mmol/L (3.5-5.1); Sodium 136 mmol/L (135-145)
[2024-09-30 08:17] VITALS: BP 166/64
[2024-09-30 08:30] LABS: Glucose - Point of Care 233 mg/dl (70-99)
[2024-09-30] MEDS: PROTONIX 40 MG PO ×2 (08:33→20:46)
[2024-09-30] MEDS: PROCARDIA XL (EXTENDED RELEASE) 30 MG PO (08:34)
[2024-09-30] MEDS: COREG 6.25 MG PO ×2 (08:34→20:46)
[2024-09-30] MEDS: FLOMAX 0.4 MG PO (08:34)
[2024-09-30] MEDS: MYFORTIC DELAYED REL. 720 MG PO ×2 (08:34→20:47)
[2024-09-30] MEDS: DELTASONE 5 MG PO (08:34)
[2024-09-30] MEDS: LASIX 20 MG IV (08:34)
[2024-09-30] MEDS: LIPITOR 40 MG PO (08:34)
[2024-09-30] MEDS: PROGRAF 2 MG PO ×2 (08:34→20:47)
[2024-09-30] MEDS: NOVOLOG FLEXPEN-LOW RESISTANCE 2 UNITS SC (08:35)
[2024-09-30] MEDS: LAC HYDRIN, AM LACTIN LOTION 1 APPLIC TOPICAL ×2 (08:35→20:48)
[2024-09-30] MEDS: TYLENOL 650 MG PO (09:01)
[2024-09-30] MEDS: ROCEPHIN 2000 MG IV ×2 (09:01→21:33)
[2024-09-30] MEDS: STERILE WATER FOR INJECTION 20 ML IV ×2 (09:02→21:32)
--- NOTE | 2024-09-30 11:06 | W.PN.HOSP.TC ---
Addendum entered and electronically signed by Virgilio Main MD 09/30/24 11:53:
Chest X-Ray from today showed as per radiologist: cardiomegaly with mild pulmonary edema and small bilateral pleural effusions, similar to prior.
Original Note:
Today's Communication/Plan
-
Continue IV Diuresis, antibiotics, prn Duonebs, CXR in the morning
Increase Insulin regimen as below
Assessment / Plan
Assessment / Plan
Physical Exam
General: Negative Cachectic
HEENT: Oxygen
Respiratory: Faint wheezes bilaterally
Cardiac: Regular Rhythm and S1/S2
GI: Soft, Nontender and Nondistended. Positive bowel sounds.
Neuro: Awake, Alert, AO x 3 and No Motor Deficits
Psych: Calm
Assessment/Plan
Sepsis secondary to the above
Enterococcal UTI and bacteremia
Immunocompromised state with history of renal transplant
-Blood culture 2 sets growing Enterococcus faecalis
-Urine culture also growing enterococci faecalis
-Initial CT abdomen pelvis did not show any obstruction/pyelonephritis/abscess
-Zosyn changed to Rocephin and Ampicillin this point further susceptibility pending and may require vancomycin
-TTE showed no clear vegetation
-ID consulted and input noted.
Shortness of Breath 09/27/24 to 09/28/24
Acute Hypoxic Respiratory Insufficiency
SEVERE ACUTE INTERSTITIAL and ALVEOLAR CARDIOGENIC PULMONARY EDEMA on CT Chest
Small bilateral pleural effusions with adjacent compressive bibasilar subsegmental atelectasis.
-CXR from 09/28/24 showed cardiomegaly with mild pulmonary edema and a new small right pleural effusion, but echo done from same day
and results showed normal LVEF, normal right ventricle, normal pericardium (but CXR was done after echo)
-proBNP 8240 -- could be from kidney disease vs. CHF
-Lasix IV 20 mg - 2 doses given on 09/28/24 with improvement in symptoms
-Continue Lasix IV 20 mg daily for now
-Resume antihypertensives (Nifedipine) as high blood pressure can possibly contribute to the pulmonary edema
-Okay to stop IVF as per nephrology as per my communication with nephrology via [place] [facility], on 09/28/24
-Given elevated proBNP and new cardiomegaly on CXR, and suspected new-onset HFpEF, cardiology consulted
-Speech consultation
-Recheck CXR in the morning
Possible Bowel Obstruction on Abdominal X-Ray on 09/28/24 -- RULED OUT
-Patient reported nausea earlier in the day on 09/28/24
-CT imaging of the abdomen/pelvis ordered showed no bowel obstruction
-Continue diet
-No need for general surgery consultation at this time
Mild gaseous distention of the stomach with 2 mildly gas-distended loops of small bowel in the left hemiabdomen
-Discussed with surgery, patient's large gastric bubble -- may have some delayed gastric emptying due to his ulcer
-Can consider UGI if patient has symptoms of indigestion/nausea/vomiting
Acute blood loss anemia
R/o GI bleed
-s/p total of 3 u prbc's this hospitalization
-maintain on PPI
-GI EGD on 09/28/24, communication via [place] [facility]: clean based gastric ulcer. needs ppi po bid for 8 weeks. GI office will call him for f/u as he needs a
repeat in 8 weeks -- PPI changed to PO BID
SHERRY on CKD III
s/p Renal Transplant
Metabolic acidosis
-baseline cr of 1.1. then increased to 1.8 -- improved with IV diuresis as above
-Tacrolimus level 08/19 was 5.8, repeat is pending.
-Maintained on tacrolimus/prednisone/mycophenolate
-Nephrology following.
B/l LE Wounds
ASCVD / PAD
-Stable. Recent admission with amputation / wound debridement.
-Wounds / surgical sites are well appearing without evidence of active infection, erythema, discharge, etc.
-Wound Care eval for continued local care.
-Continue current CV med regimen s/p recent RLE balloon angioplasty.
Small volume of abdominal and pelvic ascites
Benign Hypertension
-Amlodipine 1x dose added on 09/29/24 -- resume home Nifedipine 30 mg daily (with parameters)
-Holding parameters for Coreg.
-prn Hydralazine
Mild hepatomegaly on CT Imaging
Mild duodenal wall thickening (possibly peptic ulcer disease) on CT Imaging
Mild wall thickening in the ascending and transverse colon suggesting a mild colitis on CT Imaging
DM-II - Uncontrolled
- Stable. Continue basal Insulin but increase for better coverage and also add premeal Insulin.
- Follow glucose and cover with SSI as needed.
Anxiety
- Stable. Continue clonazepam PRN.
Hyponatremia
-monitor
DVT Prophylaxis: SCDs only. GI mentioned ideally not a good idea to resume chemical DVT prophylaxis given that patient had bleeding suspected due to ulcer. Continue compression and ambulation if possible.
Code Status: Full Code
Anticipated Discharge: > 48 hours
Subjective/Interval History
-
Date of Service: September 30, 2024
Still SOB -- speech consult??
Objective Data
-
Labs:
Laboratory Results
09/30/24
05:21
WBC 9.7
Hgb 8.7 L
Hct 27.1 L
Plt Count 206
Sodium 136
Potassium 3.7
Chloride 102
Carbon Dioxide 24
BUN 36 H
Creatinine 1.4 H
Glucose 227 H
Calcium 8.4
Vital Signs:
Vital Signs
Temp Pulse Resp BP Pulse Ox
97.6 F 58 20 166/64 95
09/30/24 08:17 09/30/24 08:17 09/30/24 08:17 09/30/24 08:17 09/30/24 08:17
I&O
09/29/24 09/30/24 10/01/24
06:59 06:59 06:59
Intake Total 308 / 308 520 / 520
Output Total 2119 / 2119 2675 / 2674
Balance -1811 / -1811 -2154 /
[2024-09-30 11:30] VITALS: BP 155/63
--- NOTE | 2024-09-30 11:54 | CM ---
PT rec SNF
Per CM note yesterday-interested in acute Rehab, which was explained that acute rehab may not be appropriate.
Referrals were sent to [facility]
physiatry consult ordered
PLAN: Discharge to Acute vs SNF when medically stable. No precert required.
[2024-09-30] MEDS: DUONEB 3 ML INH (11:56)
[2024-09-30 12:00] LABS: Glucose - Point of Care 263 mg/dl (70-99)
[2024-09-30] MEDS: NOVOLOG FLEXPEN 2 UNITS SC ×2 (12:14→17:02)
[2024-09-30] MEDS: NOVOLOG FLEXPEN-LOW RESISTANCE 3 UNITS SC (12:14)
--- NOTE | 2024-09-30 12:44 | W.PN.NEPH.PH ---
Today's Communication / Plan
-
cont lasix , FR
Assessment/Plan
-
Assessment:
Sepsis
enterococcal bacteremia and UTI
SHERRY on CKD III-baseline cr 1.3-1.5
ESRD-D nephropathy s/p LR KTP(daughter) 10/2022 at [facility]
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
Heme Positive Stools
Acute Blood Loss Anemia
b/l LE Wounds
ASCVD / PAD
Benign Hypertension
Anxiety
h/o syncope from severe orthostatic hypotension
-DM2-with microvascular complications
Anxiety, Insomnia
BPH
Plan:
SHERRY-cr improving to 1.4
wt decreasing, cotn lasix 20mg IV
non oliguric with frausto, CXR similar
cont IS Tac, MMF and Pred, Tac level 5.2 on admit
PPI per GI
maintain frausto today for retention
flomax
-
-
Date of Service: September 30, 2024
CC / HPI / ROS
-
Chief Complaint:
SHERRY with CKD h/o KTP
History of Present Illness:
SHERRY/Cr stable at 1.4
BP stable
non oliguric with frausto
abx for enterococcus sepsis
FK 5.2
Review of Systems:
no n/v
no CP
mild SOB, wt decreasing
Labs
-
Labs:
WBC 9.7 10^3/uL (4.8-10.8) 09/30/24 05:21
RBC 3.11 10^6/uL (4.70-6.10) L 09/30/24 05:21
Hgb 8.7 g/dL (13.0-18.0) L 09/30/24 05:21
Hct 27.1 % (39.0-52.0) L 09/30/24 05:21
Plt Count 206 10^3/uL (130-400) 09/30/24 05:21
Sodium 136 mmol/L (135-145) 09/30/24 05:21
Potassium 3.7 mmol/L (3.5-5.1) 09/30/24 05:21
Chloride 102 mmol/L (98-107) 09/30/24 05:21
Carbon Dioxide 24 mmol/L (22-30) 09/30/24 05:21
BUN 36 mg/dl (9-20) H 09/30/24 05:21
Creatinine 1.4 mg/dL (0.7-1.3) H 09/30/24 05:21
eGFR 53.40 09/30/24 05:21
Glucose 227 mg/dl (70-99) H 09/30/24 05:21
Calcium 8.4 mg/dl (8.4-10.2) 09/30/24 05:21
Phosphorus 3.5 mg/dl (2.5-4.5) 09/26/24 05:35
Dnm-T-Lsotypiekjk Pept 8240 pg/ml 09/28/24 15:50
Albumin 4.1 g/dl (3.5-5.0) 09/25/24 21:24
Physical Exam
-
Vital Signs:
Vital Signs
Temp Pulse Resp BP Pulse Ox
97.5 F 81 20 155/63 96
09/30/24 11:30 09/30/24 12:00 09/30/24 12:00 09/30/24 11:30 09/30/24 12:00
Cardiovascular:: Regular rate and rhythm
Respiratory:: Bilateral: Rales
Lung Excursion:: Normal
Abdomen:: Nontender and Soft
Bowel Sounds:: Normal
Extremity Edema:: +1: Bilateral:
Frausto Catheter: Yes
--- NOTE | 2024-09-30 13:24 | W.PN.CARDCBS ---
Addendum entered and electronically signed by Jarad Ambriz MD 09/30/24 16:52:
I saw and examined the patient.
The Fingerprint Classifier's note was reviewed and I agree with the note.
Comment: Briefly, 74-year-old man past medical history of end-stage renal disease and prior renal transplant on chronic immunosuppression who presents with altered mental status and weakness found to have sepsis secondary to enterococcal bacteremia
with suspected urinary source.
Following fluid resuscitation he developed iatrogenic volume overload and is now receiving IV diuretics.
Echo here with preserved LV function and no high-grade valve disease.
Weight is still up significantly from baseline and suspect he will need further IV diuresis but will defer to nephrology given his transplant kidney.
Not much to add from a cardiology standpoint, we will sign off, please recall as needed
Original Note:
Today's Communication / Plan
-
Ongoing diuresis, dry weight at last d/c 07/2024 was 198 lbs and now weighs 228 lbs
Lasix 20 mg IV daily ordered by Nephrology
Impression / Plan
-
PCP: Dr. Suarez
Card: Dr. Ambriz
Impression:
Admitted with confusion and weakness 09/25/2024
Recent admission for diabetic foot wound and right transmetatarsal amputation 08/14/2024 until 08/25/24
Sepsis
Enterococcal UTI and bacteremia
Chronically immunocompromised following renal transplant and chronic tacrolimus and mycophenolate therapy
Acute HFpEF
Acute blood loss/heme positive anemia
SHERRY on CKD 3B
Status post living relative (daughter) renal transplant at [place] 10/2022
DM 2
Echo 09/28/2024: EF 65 to 70%, mild concentric LVH, mild MR, mild TR with PAP 50 to 55 mmHg, no clear evidence of vegetation identified and consider CJ if clinically indicated
Plan:
-Weight is down 1 lb overnight if bed scale weight is correct. Dry weight at last discharge 07/28/2024 was 198 lbs so still up 30 lbs if current weight is correct
-Nephrology has ordered Lasix 20 mg IV daily. Patient was not taking a diuretic prior to admission
-IVFs have been stopped, but received 7 L this admission plus 3 units PRBCs.
-Echo as noted above shows preserved EF without significant valve disease
-Outpatient dose of Coreg 6.25 mg BID has been continued
-Patient is not chronically on URSULA/ARB/ARNI/aldosterone antagonist due to SHERRY on CKD 3B with previous renal transplant
-Initial hypotension has improved and could consider initiation of a regimen of nitrates and hydralazine
-Will hold off on adding SGLT2 due to interaction between Farxiga and tacrolimus
-Troponin peaked at 0.036, but no CP or ECG changes. No WMA on echo. Will manage as nonischemic myocardial injury troponin elevation
-Patient with Enterococcus bacteremia. TTE without evidence of vegetation. Patient could be considered for JC and this was discussed with his family by phone, but no indication from ID at this point that he will need that procedure so we will
hold off
HPI: Patient came to ER on 09/25/2024 with confusion and weakness following recent admission for right TMA and was admitted with heme positive anemia and concern for sepsis, cardiology is now consulted for possible acute HF. Patient had just been
admitted from 08/14/2024 until 08/25/2024 with diabetic foot wounds and had a right TMA. He was discharged to home and family brought him back in with increasing confusion. He was found to have Enterococcus bacteremia and ID is following. TTE
without obvious vegetation. Patient has chronically immunocompromised state due to previous renal transplant and chronic tacrolimus and mycophenolate therapy. He was additionally found to be anemic with Hgb 7.4. Patient was seen by GI and had
upper endoscopy that showed gastric ulcer on 09/28/2024. Patient was then noted to have increasing SOB and on CT abd/pelvis to look for possible SBO had evidence of pulmonary edema and cardiology is now consulted. Echo as noted above. There is no
known history of CHF and patient was not taking a diuretic prior to admission.
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
Subjective
Date of Service: September 30, 2024
Less PASTOR, but not back to baseline
Objective
Labs:
09/30/24 05:21
09/30/24 05:21
Labs
Hgb 8.7 g/dL (13.0-18.0) L 09/30/24 05:21
Hct 27.1 % (39.0-52.0) L 09/30/24 05:21
Plt Count 206 10^3/uL (130-400) 09/30/24 05:21
Sodium 136 mmol/L (135-145) 09/30/24 05:21
Potassium 3.7 mmol/L (3.5-5.1) 09/30/24 05:21
BUN 36 mg/dl (9-20) H 09/30/24 05:21
Creatinine 1.4 mg/dL (0.7-1.3) H 09/30/24 05:21
Glucose 227 mg/dl (70-99) H 09/30/24 05:21
Troponins
09/28/24 09/28/24 09/29/24
15:50 21:40 05:05
Troponin I 0.030 0.028 0.036 H* D
09/29/24
09:47
Troponin I 0.031
Vital Signs and I&O:
Vital Signs
Temp Pulse Resp BP Pulse Ox
97.5 F 81 20 155/63 96
09/30/24 11:30 09/30/24 12:00 09/30/24 12:00 09/30/24 11:30 09/30/24 12:00
Vital Signs
Temp Pulse Resp BP Pulse Ox
97.5 F 81 20 155/63 96
09/30/24 11:30 09/30/24 12:00 09/30/24 12:00 09/30/24 11:30 09/30/24 12:00
Intake & Output
09/28/24 09/29/24 09/30/2425
06:59 06:59 06:59 06:59
Intake Total 3418 / 3418 308 / 308 520 / 520
Output Total 1000 / 1000 2119 / 21195 / 5
Balance 2418 / 2418 -1812 / -1812 -2154 / -2154
Physical Exam
Physical Exam
GEN: NAD. AAO to person, place and situation
HEENT: EOMI, MMM
LUNGS: 3 L NC. No audible wheeze
CV: SR on tele
ABD: ND
EXT: s/p right TMA without edema or drainage.
NEURO: Gross non-focal
SKIN: No rash
--- NOTE | 2024-09-30 14:01 | W.PN.ID1 ---
Date of Service
Date of Service: September 30, 2024
Today's Communication
Continue Ampicillin 6g IV q6h + ceftriaxone 2gIV q12; (d4)
When stable for dc, will transition to po amoxicillin 1000mg po q8h through 10/10/24
Assessment / Plan
# Uncomplicated Enterococcus faecalis bacteremia
# Enterococcus complicated UTI
# Severe sepsis.
Fever resolved.
Leukocytosis resolved
# Upper GIB with blood loss anemia
09/28 EGD: gastric nonbleeding ulcer
# Immunocompromised host: renal transplant on mycophenolate, tacrolimus
# Toxic metabolic encephalopathy resolved
- Repeat blood cx's neg to date
-TTE no gross vege
- Continue Ampicillin 6g IV q6h + ceftriaxone 2gIV q12; (d4)
When stable for dc, will transition to po amoxicillin 1000mg po q8h through 10/10/24
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
Diabetes with neuropathy and nephropathy
ESRD; previously on HD
Living related donor renal transplant 10/31/2022 at [facility]
CKD3
HTN
Dyslipidemia
CAD
CVA
PAD s/p RLE endovascular intervention (08/18/24)
YASH on CPAP
Anxiety/depression
Macular degeneration
Narcolepsy
ADHD
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
Appendectomy
Right AV fistula
TURP
Knee arthroscopic surgery
Chief Complaint
-: UTI and Bacteremia
Subjective / Review of Systems
No new complaints.
Vital Signs / Physical Exam
Vital Signs
Vital Signs
Temp Pulse Resp BP Pulse Ox
97.5 F 81 20 155/63 96
09/30/24 11:30 09/30/24 12:00 09/30/24 12:00 09/30/24 11:30 09/30/24 12:00
Physical Exam
Constitutional: No Acute Distress and Comfortable
Cardiovascular: Regular Rate and S1/S2
Gastrointestinal: Soft, Non Tender, Non Distended and Normal Bowel Sounds
Genito-Urinary: [place] and Clear Urine
Objective Data
Lab Data
Lab Results
09/30/24 05:21
09/30/24 05:21
Estimated Creat Clear 58 ml/min 09/30/24 05:21
Lactic Acid 1.5 mmol/L (0.7-2.0) 09/25/24 21:24
Total Bilirubin 0.6 mg/dl (0.2-1.3) 09/25/24 21:24
AST 16 U/L (17-59) L 09/25/24 21:24
ALT 16 U/L (0-50) 09/25/24 21:24
Alkaline Phosphatase 80 U/L (38-126) 09/25/24 21:24
Most recent labs reviewed.
Micro Results:
09/29/24 16:07 Salmonella/Shigella Culture - Preliminary
Feces/Stool Culture in Progress
Campylobacter Culture - Preliminary
Culture in Progress
Shiga Toxin Test - Pending
Stool Leukocytes - Final
09/28/24 12:37 Blood Culture - Preliminary
Blood/Venous No Growth in 48 hours- Final report to follow
09/28/24 06:58 Blood Culture - Preliminary
Blood/Venous No Growth in 48 hours- Final report to follow
09/29/24 16:07 C. difficile GDH Antigen & Toxins - Final
Feces/Stool Negative for toxigenic C.difficile
09/26/24 01:03 Urine Culture - Final
Urine Enterococcus faecalis
09/25/24 21:55 Blood Culture - Preliminary
Blood/Venous Enterococcus faecalis
Gram Stain - Preliminary
09/25/24 21:55 Blood Culture - Preliminary
Blood/Venous Enterococcus faecalis
Gram Stain - Preliminary
03/07/25 21:24 Influenza Types A & B (MELVIN) - Final
Nasal Swab Negative for Influenza A & B, NAAT
Negative results must be combined with clinical observations
and patient history.
Nucleic Acid Amplification test (NAAT)performed on the
[employer] platform.
09/26/24 CT a/p: Atrophic [place] kidneys with right lower quadrant transplant kidney. There is no evidence of renal calculus. There is mild circumferential urinary bladder wall thickening which can be seen with seen with cystitis. Recommend
correlation with urinalysis. Mild colonic stool burden without evidence of bowel obstruction.
09/25/24 CXR: No acute cardiopulmonary process.
[2024-09-30 14:34] VITALS: BP 144/62
--- NOTE | 2024-09-30 14:48 | PTOTSP ---
Speech Pathology
Clinical Swallow Evaluation
74M with admission for sepsis 2/2 UTI p/w a WNL oropharyngeal swallow. No overt s/s of aspiration observed this date. Aspiration risk is slightly increased at this time due to current need for supplemental O2 w/ c/o SOB. Pt denies dysphagia symptoms.
Recommend:
1. Regular textures (IDDSI 7), thin liquids
2. Meds as best tolerated; encourage 1 at a time
3. Small bites, slow rate, single sips
4. Aspiration precautions
5. Speech pathology to s/o, please reconsult if overt s/s of aspiration arise.
[2024-09-30 16:55] LABS: Glucose - Point of Care 318 mg/dl (70-99)
[2024-09-30] MEDS: NOVOLOG FLEXPEN-LOW RESISTANCE 4 UNITS SC (17:02)
[2024-09-30 19:25] VITALS: BP 134/54
[2024-09-30 21:20] LABS: Glucose - Point of Care 300 mg/dl (70-99)
[2024-09-30] MEDS: LANTUS 0.14 UNITS SC (21:32)
[2024-09-30] MEDS: NOVOLOG FLEXPEN 3 UNITS SC (21:40)
[2024-09-30] MEDS: ROXICODONE 5 MG PO (22:00)
[2024-09-30 22:48] VITALS: BP 155/64
[2024-10-01] VITALS (9 sets, daily range): BP systolic 124–202; BP diastolic 51–75; PULSE 62; O2SAT 96; BMI 32.3
[2024-10-01] MEDS: AMPICILLIN 108 MG IV ×4 (00:06→17:52)
[2024-10-01] MEDS: TYLENOL 650 MG PO ×4 (00:11→22:59)
[2024-10-01] MEDS: DILAUDID 2 MG PO (05:47)
[2024-10-01 06:38] LABS: % Basophils 0.6 % (0-2); % Eosinophils 2.8 % (0-6); % Immature Granulocytes 1.1 % (0-0.5); % Lymphocytes 15.1 % (20.5-51.1); % Neutrophils 69.4 % (42.2-75.2); Absolute Eosinophils 0.2 10^3/uL (0-0.7); Absolute Immature Granulocytes 0.1 10^3/uL (0-0.05); Absolute Lymphocytes 1.1 10^3/uL (1.2-3.4); Absolute Monocytes 0.8 10^3/uL (0.1-0.6); Absolute Neutrophils 4.9 10^3/uL (1.4-6.5); Hematocrit 23.4 % (39.0-52.0); Hemoglobin 7.7 g/dL (13.0-18.0); Mean Corp Hgb Conc. 32.9 g/dL (33.0-37.0); Mean Corpuscular Hgb 28.5 pg (27.0-31.0); Mean Corpuscular Volume 86.7 fL (80.0-94.0); Mean Platelet Volume 11.7 fL (7.4-10.4); Nucleated Red Blood Cells % 0.3 % (-); Platelet Count 208 10^3/uL (130-400); Red Cell Dist. Width 15.5 % (11.5-14.5); White Blood Cell Count 7.1 10^3/uL (4.8-10.8)
[2024-10-01 06:51] LABS: Blood Urea Nitrogen 27 mg/dl (9-20); Calcium 7.4 mg/dl (8.4-10.2); Carbon Dioxide 22 mmol/L (22-30); Chloride 106 mmol/L (98-107); Estimated Creatinine Clearance 69 ml/min; Glucose 204 mg/dl (70-99); Magnesium 1.4 mg/dl (1.6-2.3); Potassium 3.2 mmol/L (3.5-5.1); Sodium 141 mmol/L (135-145); eGFR > 60.00
[2024-10-01 07:44] LABS: Glucose - Point of Care 231 mg/dl (70-99)
[2024-10-01 08:03] LABS: Albumin 2.7 g/dl (3.5-5.0)
[2024-10-01] MEDS: NOVOLOG FLEXPEN-LOW RESISTANCE 2 UNITS SC ×3 (09:38→17:06)
[2024-10-01] MEDS: NOVOLOG FLEXPEN 2 UNITS SC ×3 (09:38→17:07)
[2024-10-01] MEDS: FLOMAX 0.4 MG PO (09:39)
[2024-10-01] MEDS: PROTONIX 40 MG PO ×2 (09:39→20:40)
[2024-10-01] MEDS: PROCARDIA XL (EXTENDED RELEASE) 30 MG PO (09:39)
[2024-10-01] MEDS: COREG 6.25 MG PO ×2 (09:39→20:42)
[2024-10-01] MEDS: KCL 40 MEQ PO (09:39)
[2024-10-01] MEDS: LIPITOR 40 MG PO (09:39)
[2024-10-01] MEDS: LASIX 20 MG IV (09:40)
[2024-10-01] MEDS: DELTASONE 5 MG PO (09:40)
[2024-10-01] MEDS: PROGRAF 2 MG PO ×2 (09:40→20:40)
[2024-10-01] MEDS: ROCEPHIN 2000 MG IV ×2 (09:40→23:00)
[2024-10-01] MEDS: MYFORTIC DELAYED REL. 720 MG PO ×2 (09:40→20:40)
[2024-10-01] MEDS: LAC HYDRIN, AM LACTIN LOTION 1 APPLIC TOPICAL ×2 (09:41→20:41)
[2024-10-01] MEDS: MAGNESIUM SULFATE 50 IV (09:41)
[2024-10-01] MEDS: STERILE WATER FOR INJECTION 20 ML IV ×2 (09:41→23:00)
[2024-10-01] MEDS: KLONOPIN 0.5 MG PO (09:58)
--- NOTE | 2024-10-01 11:14 | PTCARENOTE ---
frausto removed nephro and hosp approved.
--- NOTE | 2024-10-01 11:20 | W.PN.HOSP.TC ---
Today's Communication/Plan
-
Continue IV Lasix
Assessment / Plan
Assessment / Plan
Physical Exam
General: Negative Cachectic
HEENT: Oxygen
Respiratory: Faint wheezes bilaterally
Cardiac: Regular Rhythm and S1/S2
GI: Soft, Nontender and Nondistended. Positive bowel sounds.
Neuro: Awake, Alert, AO x 3 and No Motor Deficits
Psych: Calm
Assessment/Plan
Sepsis secondary to the above
Enterococcal UTI and bacteremia
Immunocompromised state with history of renal transplant
-Blood culture 2 sets growing Enterococcus faecalis
-Urine culture also growing enterococci faecalis
-Initial CT abdomen pelvis did not show any obstruction/pyelonephritis/abscess
-Zosyn changed to Rocephin and Ampicillin this point further susceptibility pending and may require vancomycin
-TTE showed no clear vegetation
-ID consulted and input noted.
-When stable for discharge, transition to po amoxicillin 1000mg po q8h through 10/10/24
Shortness of Breath 09/27/24 to 09/28/24
Acute Hypoxic Respiratory Insufficiency
SEVERE ACUTE INTERSTITIAL and ALVEOLAR CARDIOGENIC PULMONARY EDEMA on CT Chest
Small bilateral pleural effusions with adjacent compressive bibasilar subsegmental atelectasis.
-CXR from 09/28/24 showed cardiomegaly with mild pulmonary edema and a new small right pleural effusion, but echo done from same day
and results showed normal LVEF, normal right ventricle, normal pericardium (but CXR was done after echo)
-proBNP 8240 -- could be from kidney disease vs. CHF
-Lasix IV 20 mg - 2 doses given on 09/28/24 with improvement in symptoms
-Continue Lasix IV 20 mg daily for now
-Resume antihypertensives (Nifedipine) as high blood pressure can possibly contribute to the pulmonary edema
-Okay to stop IVF as per nephrology as per my communication with nephrology via [facility], on 09/28/24
-Given elevated proBNP and new cardiomegaly on CXR, and suspected new-onset HFpEF, cardiology consulted
-Speech consultation
Possible Bowel Obstruction on Abdominal X-Ray on 09/28/24 -- RULED OUT
-Patient reported nausea earlier in the day on 09/28/24
-CT imaging of the abdomen/pelvis ordered showed no bowel obstruction
-Continue diet
-No need for general surgery consultation at this time
Mild gaseous distention of the stomach with 2 mildly gas-distended loops of small bowel in the left hemiabdomen
-Discussed with surgery, patient's large gastric bubble -- may have some delayed gastric emptying due to his ulcer
-Can consider UGI if patient has symptoms of indigestion/nausea/vomiting
Acute blood loss anemia
R/o GI bleed
-s/p total of 3 u prbc's this hospitalization
-maintain on PPI
-GI EGD on 09/28/24, communication via [facility]: clean based gastric ulcer. needs ppi po bid for 8 weeks. GI office will call him for f/u as he needs a
repeat in 8 weeks -- PPI changed to PO BID
SHERRY on CKD III
s/p Renal Transplant
Metabolic acidosis
-baseline cr of 1.1. then increased to 1.8 -- improved with IV diuresis as above
-Tacrolimus level 08/19 was 5.8, repeat is pending.
-Maintained on tacrolimus/prednisone/mycophenolate
-Nephrology following.
B/l LE Wounds
ASCVD / PAD
-Stable. Recent admission with amputation / wound debridement.
-Wounds / surgical sites are well appearing without evidence of active infection, erythema, discharge, etc.
-Wound Care eval for continued local care.
-Continue current CV med regimen s/p recent RLE balloon angioplasty.
Small volume of abdominal and pelvic ascites
Benign Hypertension
-Amlodipine 1x dose added on 09/29/24 -- resume home Nifedipine 30 mg daily (with parameters)
-Holding parameters for Coreg.
-prn Hydralazine
Mild hepatomegaly on CT Imaging
Mild duodenal wall thickening (possibly peptic ulcer disease) on CT Imaging
Mild wall thickening in the ascending and transverse colon suggesting a mild colitis on CT Imaging
DM-II - Uncontrolled
- Stable. Continue basal Insulin but increase for better coverage and also add premeal Insulin.
- Follow glucose and cover with SSI as needed.
Anxiety
- Stable. Continue clonazepam PRN.
Hyponatremia
-monitor
DVT Prophylaxis: SCDs only. GI mentioned ideally not a good idea to resume chemical DVT prophylaxis given that patient had bleeding suspected due to ulcer. Continue compression and ambulation if possible.
Code Status: Full Code
Anticipated Discharge: 24 - 48 hours
Subjective/Interval History
-
Date of Service: October 01, 2024
Patient was seen and examined. He said that his shortness of breath has improved today, denied any chest pain.
Objective Data
-
Labs:
Laboratory Results
10/01/24 10/01/24
05:42 11:18
WBC 7.1
Hgb 7.7 L Pending
Hct 23.4 L Pending
Plt Count 208
Sodium 141
Potassium 3.2 L
Chloride 106
Carbon Dioxide 22
BUN 27 H
Creatinine 1.2
Glucose 204 H
Calcium 7.4 L
Vital Signs:
Vital Signs
Temp Pulse Resp BP Pulse Ox
97.9 F 60 18 164/67 94
10/01/24 07:30 10/01/24 09:39 10/01/24 07:30 10/01/24 09:40 10/01/24 07:30
I&O
09/30/24 10/01/24 10/02/24
06:59 06:59 06:59
Intake Total 520 / 520 660 / 660
Output Total 2675 / 2675 2625 / 2625
Balance -2154 / -2154 -1964 /
--- NOTE | 2024-10-01 11:20 | W.PN.ID1 ---
Addendum entered and electronically signed by Sandy Fraire MD 10/01/24 18:15:
Correction:
Continue Ampicillin 2g IV q6h + ceftriaxone 2gIV q12 (d5) while inpatient.
When stable for dc, transition to po amoxicillin 1000mg po q8h through 10/10/24
Original Note:
Date of Service
Date of Service: October 01, 2024
Today's Communication
Continue Ampicillin 6g IV q6h + ceftriaxone 2gIV q12 while inpatient.
When stable for dc, transition to po amoxicillin 1000mg po q8h through 10/10/24
Assessment / Plan
# Immunocompromised host: renal transplant on mycophenolate, tacrolimus
# Uncomplicated Enterococcus faecalis bacteremia
# Enterococcus complicated UTI
# s/p Severe sepsis.
Fever resolved.
Leukocytosis resolved
# Upper GIB with blood loss anemia
09/28 EGD: gastric nonbleeding ulcer
# Acute pulm edema
# Toxic metabolic encephalopathy resolved
- Repeat blood cx's neg to date
-TTE no gross vege
- Continue Ampicillin 6g IV q6h + ceftriaxone 2gIV q12 (d5) while inpatient.
When stable for dc, transition to po amoxicillin 1000mg po q8h through 10/10/24
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
Diabetes with neuropathy and nephropathy
ESRD; previously on HD
Living related donor renal transplant 10/31/2022 at [facility]
CKD3
HTN
Dyslipidemia
CAD
CVA
PAD s/p RLE endovascular intervention (08/18/24)
YASH on CPAP
Anxiety/depression
Macular degeneration
Narcolepsy
ADHD
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
Appendectomy
Right AV fistula
TURP
Knee arthroscopic surgery
Chief Complaint
-: UTI and Bacteremia
Subjective / Review of Systems
Feels well.
Vital Signs / Physical Exam
Vital Signs
Vital Signs
Temp Pulse Resp BP Pulse Ox
97.9 F 60 18 164/67 94
10/01/24 07:30 10/01/24 09:39 10/01/24 07:30 10/01/24 09:40 10/01/24 07:30
Physical Exam
Constitutional: No Acute Distress and Comfortable
Eyes: No Conjunctival Hemorrhage and Sclera Anicteric
Cardiovascular: Regular Rate and S1/S2
Pulmonary: Other (decreased BS at bases)
Gastrointestinal: Soft, Non Tender and Non Distended
Genito-Urinary: Clear Urine and Other (Transplant kidney without pain)
Extremities: Edema (BLE)
Wound: Other (Right foot TMA site dry with scabs.)
Neurological: AO x 3
Psychological: Calm
Objective Data
Lab Data
Lab Results
10/01/24 05:42
Estimated Creat Clear 69 ml/min 10/01/24 05:42
Lactic Acid 1.5 mmol/L (0.7-2.0) 09/25/24 21:24
Total Bilirubin 0.6 mg/dl (0.2-1.3) 09/25/24 21:24
AST 16 U/L (17-59) L 09/25/24 21:24
ALT 16 U/L (0-50) 09/25/24 21:24
Alkaline Phosphatase 80 U/L (38-126) 09/25/24 21:24
Most recent labs reviewed.
Micro Results:
09/29/24 16:07 Salmonella/Shigella Culture - Final
Feces/Stool No Salmonella, Shigella, Aeromonas or Plesiomonas species
isolated.
Campylobacter Culture - Final
No Campylobacter species isolated.
Shiga Toxin Test - Final
No E. coli Shiga Toxin 1 or 2 detected.
Stool Leukocytes - Final
09/28/24 06:58 Blood Culture - Preliminary
Blood/Venous No Growth in 72 hours- Final report to follow
09/28/24 12:37 Blood Culture - Preliminary
Blood/Venous No Growth in 48 hours- Final report to follow
09/29/24 16:07 C. difficile GDH Antigen & Toxins - Final
Feces/Stool Negative for toxigenic C.difficile
09/26/24 01:03 Urine Culture - Final
Urine Enterococcus faecalis
09/25/24 21:55 Blood Culture - Preliminary
Blood/Venous Enterococcus faecalis
Gram Stain - Preliminary
09/25/24 21:55 Blood Culture - Preliminary
Blood/Venous Enterococcus faecalis
Gram Stain - Preliminary
09/25/24 21:24 Influenza Types A & B (MELVIN) - Final
Nasal Swab Negative for Influenza A & B, NAAT
Negative results must be combined with clinical observations
and patient history.
Nucleic Acid Amplification test (NAAT)performed on the
[employer] platform.
09/26/24 CT a/p: Atrophic [place] kidneys with right lower quadrant transplant kidney. There is no evidence of renal calculus. There is mild circumferential urinary bladder wall thickening which can be seen with seen with cystitis. Recommend
correlation with urinalysis. Mild colonic stool burden without evidence of bowel obstruction.
09/25/24 CXR: No acute cardiopulmonary process.
09/28/24 CT a/p: SEVERE ACUTE INTERSTITIAL and ALVEOLAR CARDIOGENIC PULMONARY EDEMA. Right lower quadrant renal transplant in place. Mild duodenal wall thickening (possibly peptic ulcer disease). Mild wall thickening in the ascending and transverse
colon suggesting a mild colitis.
Care Review
Plan reviewed with: Physician (Dr. Main)
[2024-10-01 11:44] LABS: Glucose - Point of Care 220 mg/dl (70-99)
[2024-10-01 12:38] LABS: Hematocrit 29.1 % (39.0-52.0); Hemoglobin 9.3 g/dL (13.0-18.0)
--- NOTE | 2024-10-01 13:41 | CM ---
Reviewed the chart notes. PMR consult pending. CM continues to be available to patient/family and is monitoring medical plan for needs at discharge.
Plan: Discharge to acute vs SNF when medically stable. No precert required.
[2024-10-01 17:07] LABS: Glucose - Point of Care 242 mg/dl (70-99)
--- NOTE | 2024-10-01 17:26 | W.PN.NEPH.PH ---
Today's Communication / Plan
-
cont IV lasix
Assessment/Plan
-
Assessment:
Sepsis
enterococcal bacteremia and UTI
SHERRY on CKD III-baseline cr 1.3-1.5
ESRD-D nephropathy s/p LR KTP(daughter) 10/2022 at [facility]
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
Heme Positive Stools
Acute Blood Loss Anemia
b/l LE Wounds
ASCVD / PAD
Benign Hypertension
Anxiety
h/o syncope from severe orthostatic hypotension
-DM2-with microvascular complications
Anxiety, Insomnia
BPH
Plan:
SHERRY-cr improving to 1.2
replace k
net neg balance but w tis up
cont lasix fo rnow, ok for VT and monitro bladder scan
maintain FR
cont IS Tac, MMF and Pred, Tac level 5.2 on admit
PPI per GI
flomax
d/w pt and nursing
-
-
Date of Service: October 01, 2024
CC / HPI / ROS
-
Chief Complaint:
SHERRY with CKD h/o KTP
History of Present Illness:
SHERRY/Cr better at 1.2, k low 3.2
BP stable
non oliguric with frausto
abx for enterococcus sepsis
FK 5.2
Review of Systems:
no n/v
no CP
no sob on RA
Labs
-
Labs:
WBC 7.1 10^3/uL (4.8-10.8) 10/01/24 05:42
RBC 2.70 10^6/uL (4.70-6.10) L 10/01/24 05:42
Hgb 9.3 g/dL (13.0-18.0) L D 10/01/24 11:18
Hct 29.1 % (39.0-52.0) L 10/01/24 11:18
Plt Count 208 10^3/uL (130-400) 10/01/24 05:42
Sodium 141 mmol/L (135-145) 10/01/24 05:42
Potassium 3.2 mmol/L (3.5-5.1) L 10/01/24 05:42
Chloride 106 mmol/L (98-107) 10/01/24 05:42
Carbon Dioxide 22 mmol/L (22-30) 10/01/24 05:42
BUN 27 mg/dl (9-20) H 10/01/24 05:42
Creatinine 1.2 mg/dL (0.7-1.3) 10/01/24 05:42
eGFR > 60.00 10/01/24 05:42
Glucose 204 mg/dl (70-99) H 10/01/24 05:42
Calcium 7.4 mg/dl (8.4-10.2) L 10/01/24 05:42
Phosphorus 3.5 mg/dl (2.5-4.5) 09/26/24 05:35
Rvx-N-Ovqqzuzsupk Pept 8240 pg/ml 09/28/24 15:50
Albumin 2.7 g/dl (3.5-5.0) L 10/01/24 05:42
Physical Exam
-
Vital Signs:
Vital Signs
Temp Pulse Resp BP Pulse Ox
98.2 F 62 18 133/56 96
10/01/24 15:20 10/01/24 15:20 10/01/24 15:20 10/01/24 15:20 10/01/24 15:20
Cardiovascular:: Regular rate and rhythm
Respiratory:: Bilateral: Rales (improving)
Lung Excursion:: Normal
Abdomen:: Nontender and Soft
Bowel Sounds:: Normal
Extremity Edema:: +1: Left: and +3: Right:
Frausto Catheter: No
--- NOTE | 2024-10-01 17:56 | W.PN.UPDATE ---
Update Note
Progress Note Update
Patient's right lower extremity appears to be more swollen/larger than the left lower extremity -- ordered urgent lower extremity ultrasound to check for any possible DVT.
--- NOTE | 2024-10-01 21:37 | PTCARENOTE ---
Patient transferred up to [address] [facility]. Report given to Nurse Moran. Patient bladder scanned before being transferred for 437. Patient output decreased but is able to urinate. Patient currently on voiding trail and will attempt to urinate. Nurse Moran updated
with plan at nursing station at .
[2024-10-01] MEDS: APRESOLINE 5 MG IV (22:58)
[2024-10-01] MEDS: LANTUS 0.14 UNITS SC (22:59)
[2024-10-01 23:01] LABS: Glucose - Point of Care 236 mg/dl (70-99)
[2024-10-02] VITALS (8 sets, daily range): BP systolic 143–198; BP diastolic 52–77; PULSE 68; BMI 31.3
[2024-10-02] MEDS: AMPICILLIN 108 MG IV ×5 (00:06→23:20)
[2024-10-02] MEDS: DILAUDID 0.25 MG IV (02:25)
[2024-10-02 08:05] LABS: Glucose - Point of Care 214 mg/dl (70-99)
[2024-10-02] MEDS: DELTASONE 5 MG PO (08:54)
[2024-10-02] MEDS: FLOMAX 0.4 MG PO (08:55)
[2024-10-02] MEDS: LIPITOR 40 MG PO (08:55)
[2024-10-02] MEDS: PROCARDIA XL (EXTENDED RELEASE) 30 MG PO (08:55)
[2024-10-02] MEDS: PROTONIX 40 MG PO ×2 (08:56→21:20)
[2024-10-02] MEDS: PROGRAF 2 MG PO ×2 (08:56→21:19)
[2024-10-02] MEDS: COREG 6.25 MG PO ×2 (08:56→21:12)
[2024-10-02] MEDS: MYFORTIC DELAYED REL. 720 MG PO ×2 (08:57→21:17)
[2024-10-02] MEDS: NOVOLOG FLEXPEN 2 UNITS SC (08:59)
[2024-10-02] MEDS: NOVOLOG FLEXPEN-LOW RESISTANCE 2 UNITS SC ×2 (08:59→14:14)
--- NOTE | 2024-10-02 09:02 | PN.CDI ---
CDI
- -
CDI:
Physician Documentation Request
Admit Date: 09/26/24 03:30
Dear Doctor Jose David,
10/01 Potassium level 3.2
10/01 Potassium chloride 40 meq PO administered
Based on the above, could you clarify in the progress notes, the appropriate diagnosis, if significant, that supports the above abnormalities and additional evaluation, monitoring and/or treatment rendered:
Hypokalemia
Abnormal lab value insignificant
Other
Use of terms such as suspected, likely, concern for, or probable (associated with a specific diagnosis that is being evaluated, monitored, or treated as if it exists) are acceptable and can be coded in the inpatient setting, when documented at the
time of discharge.
Thank you,
Vi Lyles RN, BSN
CDI Specialist
Available via [employer] ext
Please use your independent medical judgment in providing your response.
[2024-10-02] MEDS: KLONOPIN 0.5 MG PO ×2 (09:09→21:44)
[2024-10-02 09:22] LABS: Blood Urea Nitrogen 22 mg/dl (9-20); Calcium 8.8 mg/dl (8.4-10.2); Carbon Dioxide 27 mmol/L (22-30); Chloride 103 mmol/L (98-107); Estimated Creatinine Clearance 74 ml/min; Glucose 189 mg/dl (70-99); Magnesium 1.6 mg/dl (1.6-2.3); Sodium 139 mmol/L (135-145); eGFR > 60.00
[2024-10-02] MEDS: LASIX 20 MG IV (10:31)
[2024-10-02 10:39] LABS: % Basophils 0.6 % (0-2); % Lymphocytes 15.6 % (20.5-51.1); % Monocytes 9.4 % (1.7-9.3); % Neutrophils 69.4 % (42.2-75.2); Absolute Basophils 0.1 10^3/uL (0-0.2); Absolute Eosinophils 0.3 10^3/uL (0-0.7); Absolute Immature Granulocytes 0.2 10^3/uL (0-0.05); Absolute Lymphocytes 1.4 10^3/uL (1.2-3.4); Absolute Monocytes 0.8 10^3/uL (0.1-0.6); Absolute Neutrophils 6.2 10^3/uL (1.4-6.5); Hematocrit 28.8 % (39.0-52.0); Hemoglobin 9.3 g/dL (13.0-18.0); Mean Corp Hgb Conc. 32.3 g/dL (33.0-37.0); Mean Corpuscular Hgb 27.9 pg (27.0-31.0); Mean Corpuscular Volume 86.5 fL (80.0-94.0); Mean Platelet Volume 10.6 fL (7.4-10.4); Nucleated Red Blood Cells % 0 % (-); Platelet Count 301 10^3/uL (130-400); Red Blood Cell Count 3.33 10^6/uL (4.70-6.10); Red Cell Dist. Width 15.6 % (11.5-14.5)
[2024-10-02] MEDS: LAC HYDRIN, AM LACTIN LOTION 1 APPLIC TOPICAL ×2 (10:39→21:16)
[2024-10-02] MEDS: STERILE WATER FOR INJECTION 20 ML IV ×2 (10:52→21:21)
[2024-10-02] MEDS: ROCEPHIN 2000 MG IV ×2 (10:52→21:20)
--- NOTE | 2024-10-02 11:21 | CON.MR ---
Documented by User: Olya Mccann MD, Resident 10/02/24 16:47
Medical History
-
History of Present Illness:
History of Present Illness: Patient is a 74y M with PMH significant for hypertension, DM-II, ESRD from diabetic nephropathy s/p renal transplant (donor daughter) in 10/2022 at [place], MMF, prednisone and monthly Belatacept, hyperlipidemia and
recent R transmet amputation who was brought to ED by family due to concern for confusion, weakness and fatigue for several days. Patient had a long and complicated hospitalization from 08/14/24 - 08/25/24 during which he underwent
revascularization to the RLE, R transmetatarsal amputation and b/l foot wound debridements. Patient was admitted with urosepsis also had a drop in hgb and dark stool s/p 3 units PRBC. Underwent EGD, smooth clean based gastric ulcer, on PPI bid x8
weeks. He was found to have Enterococcus bacteremia, ID consulted, on ceftriaxone and ampicillin. Plan for transition to po amoxicillin 1000mg po q8h through 10/10/24 on discharge. Repeat blood cultures negative. Concern for fluid overload in the
setting of SHERRY on chronic kidney disease, proBNP significantly elevated, hypoxic -- diuresis with IV Lasix was started, now transitioned to p.o. Lasix. Echo 09/28/2024: EF 65 to 70%, mild concentric LVH, mild MR, mild TR with PAP 50 to 55 mmHg, no
clear evidence of vegetation. Cardiology consulted for acute HFpEF, suggested holding BONIFACIO /ARB /ARNI /spironolactone. Mild gaseous distention of the stomach with 2 mildly gas-distended loops of small bowel in the left hemiabdomen was found on
imaging, obstruction ruled out, no need for surgery.
DVT Prophylaxis: SCDs only.
Past Medical History: hypertension, DM-II, ESRD from diabetic nephropathy s/p renal transplant (donor daughter) in 10/2022 at [place], MMF, prednisone and monthly Belatacept, hyperlipidemia
Procedure History: R transmetatarsal amputation and bilateral subcutaneous debridement down to the level of muscle with excision of nonviable tissue (nonweightbearing on the right and heel weightbearing on the left for transfers)
Family History: Not pertinent
Social History:
Functional Level Premorbidly: Independent with all activities prior to TMA. Used wheelchair prior to admission.
Functional Level Currently: Moderate assistance with transfer, dependent with lower extremity self-care, supervision with mobility
Tobacco: Denies
Alcohol: Drinks a glass of wine 3 times a week�
Drug use: Denies
Lives with: Spouse
24-hour assistance available:
Number of floors: 1
# steps to enter: 2
Driving: No
Occupation: Retired
Allergies / Home Medications
Allergy/AdvReac Type Severity Reaction Status Date / Time
No Known Allergies Allergy Verified 09/25/24 21:15
�Medication �Instructions �Recorded �Confirmed �Last Taken �Type
carvedilol 6.25 mg tablet 6.25 mg PO BID Heart 07/23/23 09/26/24 Unknown History
Disease/Condition
prednisone 5 mg tablet 5 mg PO DAILY Anti-Inflammatory 07/23/23 08/14/24 Unknown History
tacrolimus 1 mg capsule, 2 mg PO Q12H renal transplant 07/23/23 09/26/24 Unknown History
immediate-release (Prograf)
vibegron 75 mg tablet 75 mg PO DAILY Urinary Issue 07/23/23 08/14/24 Unknown History
aspirin 81 mg tablet,delayed 81 mg PO DAILY Blood Clot 08/14/24 09/26/24 Unknown History
release Prevention/Tx
atorvastatin 40 mg tablet (Lipitor) 40 mg PO DAILY High Cholesterol 08/14/24 09/26/24 Unknown History
magnesium oxide 400 mg PO DAILY Supplement 08/14/24 09/26/24 Unknown History
mycophenolate sodium 180 mg 720 mg PO BID IMMUNOSUPPRESSANT 08/14/24 08/14/24 Unknown History
tablet,delayed release
omega-3 acid ethyl esters 1 gram 2 cap PO BID Supplement 08/14/24 08/14/24 Unknown History
capsule (Lovaza)
clopidogrel 75 mg tablet 75 mg PO DAILY #90 tabs 08/18/24 Unknown Rx
acetaminophen 325 mg tablet 650 mg (2 x 325 mg) PO Q4HPRN PRN 08/25/24 Unknown Rx
mild pain or temp > 100.4 F #100
tabs
cephalexin 500 mg capsule 500 mg PO QID #40 caps 08/25/24 Unknown Rx
clonazepam 1 mg tablet 1 mg PO BIDPRN PRN anxiety #4 tabs 08/25/24 08/14/24 Unknown Rx
insulin glargine 100 unit/mL (3 20 unit (0.2 mL) SC HS diabetes 08/25/24 09/26/24 Unknown Rx
mL) subcutaneous pen (Lantus #0 mL
Solostar U-100 Insulin)
insulin lispro 100 unit/mL 13 unit (0.13 mL) SC AC Diabetes 08/25/24 09/26/24 02/18/22 18:00 Rx
subcutaneous pen (Humalog KwikPen #0 mL
(U-100) Insulin)
nifedipine 30 mg tablet,extended 30 mg PO DAILY #30 tabs 08/25/24 09/26/24 Unknown Rx
release
Physical Exam
Active Medications
Generic Name Dose Route Start Last Admin
Trade Name Freq PRN Reason Stop Dose Admin
Acetaminophen 650 mg 09/26/24 03:40 10/01/24 22:59
Acetaminophen 325 Mg Tablet PO 10/24/24 03:39 650 mg
Q4HPRN PRN Administration
Mild Pain / Temp > 101
Albuterol/Ipratropium 3 ml 09/28/24 18:50 09/30/24 11:56
Ipratropium 0.5/Albuterol 3 Mg (3 Ml Ampul) INH 3 ml
R Q4HPRN PRN Administration
Shortness of breath/wheezing
Protocol
Ammonium Lactate 0 applic 09/27/24 13:00 10/02/24 10:39
Ammonium Lactate 12% (Lotion) 240 Ml Bottle TOPICAL 10/25/24 12:59 1 applic
BID MARY Administration
Atorvastatin Calcium 40 mg 09/26/24 08:00 10/02/24 08:55
Atorvastatin (Lipitor) 40 Mg Tablet PO 10/24/24 07:59 40 mg
DAILY MARY Administration
Carvedilol 6.25 mg 09/26/24 08:00 10/02/24 08:56
Carvedilol 6.25 Mg Tablet PO 10/24/24 07:59 6.25 mg
BID MARY Administration
Ceftriaxone Sodium 2,000 mg 09/27/24 22:00 10/02/24 10:52
Ceftriaxone 2,000 Mg/20 Ml Vial IV 2,000 mg
Q12H MARY Administration
Clonazepam 0.5 mg 09/30/24 11:48 10/02/24 09:09
Clonazepam 0.5 Mg Tablet PO 10/28/24 11:47 0.5 mg
BIDPRN PRN Administration
anxiety
Dextrose 12.5 grams 09/26/24 03:40
Dextrose 50% (0.5 Grams/Ml) 50 Ml Syringe IV 10/24/24 03:39
[id number] PRN
hypoglycemia
Protocol
Furosemide 20 mg 09/30/24 08:00 10/02/24 10:31
Furosemide 20 Mg (10 Mg/Ml) 2 Ml Vial IV 10/28/24 07:59 20 mg
DAILY MARY Administration
Glucagon 1 mg 09/26/24 03:40
Glucagon 1 Mg Vial IM 10/24/24 03:39
PRN PRN
hypoglycemia
Protocol
Hydralazine HCl 5 mg 09/27/24 23:54 10/01/24 22:58
Hydralazine 20 Mg/Ml Vial IV 10/25/24 23:53 5 mg
Q4HPRN PRN Administration
sbp >170
Ampicillin Sodium 2,000 mg/ 108 mls @ 108 mls/hr 09/27/24 18:00 10/02/24 06:12
Sodium Chloride IV 108 mls
Q6H MARY Administration
Insulin Glargine 14 units/ 0.14 mls @ 0 mls/hr 09/30/24 22:00 10/01/24 22:59
Device SC 10/24/24 21:59 0.14 mls
HS MARY Administration
As Directed
Insulin Aspart 0 units 09/26/24 07:30 10/02/24 08:59
Insulin Aspart Low Resistance 300 Units/3 Ml Pen.Injctr SC 10/24/24 07:29 2 units
AC MARY Administration
Protocol
Insulin Aspart 2 units 09/30/24 11:50 10/02/24 08:59
Insulin Aspart (100 Units/Ml) 3 Ml Flexpen SC 10/28/24 11:49 2 units
AC MARY Administration
Mycophenolate Sodium 720 mg 09/26/24 08:00 10/02/24 08:57
Mycophenolic Acid [address] Tablet (Non Form) PO 720 mg
BID MARY Administration
Nifedipine 30 mg 09/30/24 08:00 10/02/24 08:55
Nifedipine 30 Mg Extended Release Tablet PO 10/28/24 07:59 30 mg
DAILY MARY Administration
Pantoprazole Sodium 40 mg 09/28/24 20:00 10/02/24 08:56
Pantoprazole 40 Mg Delayed Release Tablet PO 10/26/24 19:59 40 mg
BID MARY Administration
Prednisone 5 mg 09/26/24 08:00 10/02/24 08:54
Prednisone 5 Mg Tablet PO 10/24/24 07:59 5 mg
DAILY MARY Administration
Sodium Chloride 0 flush 09/26/24 04:00 09/30/24 02:25
Sodium Chloride 0.9% (Flush) Syringe IV 10/24/24 03:59 2 flush
PER PROTOCOL MARY Administration
Sterile Water 20 ml 09/27/24 22:00 10/02/24 10:52
Sterile Water For Injection 20 Ml Vial IV 10/25/24 21:59 20 ml
Q12H MARY Administration
Tacrolimus 2 mg 09/26/24 08:00 10/02/24 08:56
Tacrolimus 1 Mg Capsule PO 10/24/24 07:59 2 mg
Q12H MARY Administration
Tamsulosin HCl 0.4 mg 09/28/24 12:00 10/02/24 08:55
Tamsulosin 0.4 Mg Capsule PO 10/26/24 11:59 0.4 mg
DAILY MARY Administration
Vital Signs
Temp Pulse Resp BP Pulse Ox
97.5 F 63 18 143/52 90
10/02/24 11:12 10/02/24 11:12 10/02/24 11:12 10/02/24 11:12 10/02/24 11:12
Height 5 ft 11 in
Actual Weight 101.69 kg
Body Mass Index (BMI) 31.3
Physical Exam
Physical Exam:
General Appearance/Observation: Well-developed, well-nourished individual in no apparent distress.
Pain/Comfort Assessment: Pain in bilateral lower extremities
Mood/Affect: Appropriate, frustrated
Integumentary/Operative Site:
Pressure Ulcer: absent
Other Type of Wound: Right TMA site intact
Eyes: Conjunctiva/Lids: normal Pupils: pupils equal round and reactive to light and Accommodation
Ears/Nose/Throat: oral mucosa moist, throat clear. Lips/Teeth/Gums: normal
Neck: No muscle spasm or tenderness
Cardiovascular: Heart: regular, no murmur
Pulses: dorsalis pedis 2+ bilaterally
Respiratory: Respiratory Effort/Chest Expansion: normal Auscultation: Clear to auscultation bilaterally
Gastrointestinal: abdomen not tender, distended w/o tenderness/guarding/rebound, normal abdominal bowel sounds
Genitourinary: No [place]
Rectal Exam: Deferred
Extremities: Edema: None Cyanosis: None Trophic changes: None
Neurology Exam:
Orientation: Alert, Oriented to self, Time, Place
Memory: Intact immediately and at 3 minutes
Higher cortical function
Speech: Intact
Repetition: Intact
Comprehension: Intact
Two step command: Intact
Naming: Intact
Cranial Nerves:
CNII: Pupillary light reflex: Intact Visual Field: Intact
CN III, IV, : Extraocular muscles: Intact
CN V: Facial Sensation at Forehead: Intact , Maxilla: Intact, Mandible: Intact
CN VII: Facial movement: Symmetric
CN VIII: Hearing: Normal
CN IX/X: Speech & swallow: Normal, Position of Uvula: Midline
CN XI: Shoulder shrug: Symmetric
CN XII: Tongue protrusion: Midline
Sensory:
Light touch: Tingling and numbness in bilateral lower extremities and hands
Reflexes:
Biceps: 2+ bilaterally
Brachioradialis: 2+ bilaterally
Triceps: 2+ bilaterally
Patellar: 2+ bilaterally
Achilles: 2+ bilaterally
Babinski: Downgoing left
Clonus: None
Carri: Negative bilaterally
Cerebellar: Dysmetria/Ataxia: None
Musculoskeletal:
Motor: (Manual muscle scale 0-5)
Muscle SA EF WE EE FF FA HF KE DF EHL PF
Right 5 5 5 5 5 5 4+ 5
Left 5 5 5 5 5 5 4+ 5 5 5 4+
Tone: Normal in all extremities
Range of Motion: Passively within normal limits in all extremities
Atrophy of dorsal interossei muscles in bilateral hands.
Lab Results
10/02/24 08:12
10/02/24 08:12
WBC 9.0 10^3/uL (4.8-10.8) 10/02/24 08:12
Hgb 9.3 g/dL (13.0-18.0) L 10/02/24 08:12
Hct 28.8 % (39.0-52.0) L 10/02/24 08:12
MCV 86.5 fL (80.0-94.0) 10/02/24 08:12
Plt Count 301 10^3/uL (130-400) D 10/02/24 08:12
Sodium 139 mmol/L (135-145) 10/02/24 08:12
Potassium 4.0 mmol/L (3.5-5.1) 10/02/24 08:12
Chloride 103 mmol/L (98-107) 10/02/24 08:12
Carbon Dioxide 27 mmol/L (22-30) 10/02/24 08:12
BUN 22 mg/dl (9-20) H 10/02/24 08:12
Creatinine 1.1 mg/dL (0.7-1.3) 10/02/24 08:12
eGFR > 60.00 10/02/24 08:12
Glucose 189 mg/dl (70-99) H 10/02/24 08:12
Hemoglobin A1c 6.6 % (4.0-5.6) H 09/26/24 05:36
Calcium 8.8 mg/dl (8.4-10.2) 10/02/24 08:12
Phosphorus 3.5 mg/dl (2.5-4.5) 09/26/24 05:35
Magnesium 1.6 mg/dl (1.6-2.3) 10/02/24 08:12
Total Bilirubin 0.6 mg/dl (0.2-1.3) 09/25/24 21:24
AST 16 U/L (17-59) L 09/25/24 21:24
ALT 16 U/L (0-50) 09/25/24 21:24
Alkaline Phosphatase 80 U/L (38-126) 09/25/24 21:24
Total Protein 6.0 g/dl (6.3-8.2) L 09/25/24 21:24
Albumin 2.7 g/dl (3.5-5.0) L 10/01/24 05:42
Diagnostic Results
As per HPI.
Assessment / Plan
Plan
PM&R PT/OT to increase independence with ADLs, improve balance, coordination, endurance, strength, mobility, community reintegration, decreased burden of care on others and family education.
Peripheral polyneuropathy: Patient with diabetic neuropathy. It is reasonable to consider gabapentin.
Renal Transplant: Continue immunosuppressive and prophylactic therapies. Monitor CBC, BMP, LFTs, magnesium, phosphorus, tacrolimus.
Status post right TMA: Monitor incision, edema control with BONIFACIO wrap, pain control, incision care per podiatry, desensitization, [place] limb pain education, maintain full ROM at hip and knee.
HTN: continue medications, monitor closely
HLD: Statin
HFpEF: continue aspirin, statin, coreg, plavix. EF 65-70%, continue lasix, monitor fluid status
DM II: Accu-Cheks, adjust insulin lantus and aspart as needed.
Urosepsis and bacteremia: Complete course of antibiotics, plan for transition to p.o. amoxicillin 1 g every 8 hours through 10/10/2024.
Bilateral lower extremity edema: Consider TEDS as able. Increased fluid will cause more force requirement to move lower extremities which requires more strength and increases fatigue.
Pressure ulcers: Vitamin C, zinc, multivitamin. Weight shifts in wheelchair and bed. Roho cushion. Pressure-relief boots. Lotrimin to fungal rash over buttocks and inguinal region.
Anemia: Now resolved. Continue to monitor hemoglobin.
Psych: Appropriate mood.
Skin: monitor for pressure sores/rashes/lesions.
Pain: acetaminophen, gabapentin or oxycodone as needed.
Bowel: Colace and Senna, PRN bisacodyl.
Bladder: Time void, PVRs, PRN straight cath.
Gastric ulcer: Pantoprazole twice daily x8 weeks. Repeat EGD scheduled in 8 weeks.
DVT Prophylaxis: SCDs given GI bleeding
Pulmonary: Incentive spirometry
Safety: Continue to reinforce assistance with all transfers.
Code Status: Full code
Dispo (date/plan/equipment needs): half-way facility. Social history reviewed.
Functional and Medical Goals: Modified Independent with ADL�s, ambulation, transfers
Summary
-
Summary of recommendations:
- Discharge Destination: half-way facility
Thank you for allowing me to care for your patient. Please contact me with any questions or concerns.
Comments
-
This note was dictated using a voice recognition system. 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 If you believe there are any discrepancies, please notify our office.

Documented by User: Daniel Peck MD 10/02/24 22:06
Consultation
Consultation Request
Requesting Provider: Dr. Laura Main
Performing Provider: Dr. Peck
Reason for Consultation: rehabilitation evaluation
Medical History
-
History of Present Illness:
History of Present Illness: Patient is a 74-year-old male with PMH significant for hypertension, DM-II, ESRD from diabetic nephropathy s/p renal transplant (donor daughter) in 10/2022 at [place], MMF, prednisone and monthly Belatacept,
hyperlipidemia and recent R transmet amputation who was brought to ED by family due to concern for confusion, weakness and fatigue for several days. Patient had a long and complicated hospitalization from 08/14/24 - 08/25/24 during which he
underwent revascularization to the RLE, R transmetatarsal amputation and b/l foot wound debridements. Patient was admitted with urosepsis also had a drop in hgb and dark stool s/p 3 units PRBC. Underwent EGD, smooth clean based gastric ulcer, on PPI
bid x8 weeks. He was found to have Enterococcus bacteremia, ID consulted, on ceftriaxone and ampicillin. Plan for transition to po amoxicillin 1000mg po q8h through 10/10/24 on discharge. Repeat blood cultures negative. Concern for fluid overload in
the setting of SHERRY on chronic kidney disease, proBNP significantly elevated, hypoxic -- diuresis with IV Lasix was started, now transitioned to p.o. Lasix. Echo 09/28/2024: EF 65 to 70%, mild concentric LVH, mild MR, mild TR with PAP 50 to 55 mmHg,
no clear evidence of vegetation. Cardiology consulted for acute HFpEF, suggested holding BONIFACIO /ARB /ARNI /spironolactone. Mild gaseous distention of the stomach with 2 mildly gas-distended loops of small bowel in the left hemiabdomen was found on
imaging, obstruction ruled out, no need for surgery.
DVT Prophylaxis: SCDs only.
Past Medical History: hypertension, DM-II, ESRD from diabetic nephropathy s/p renal transplant (donor daughter) in 10/2022 at [place], MMF, prednisone and monthly Belatacept, hyperlipidemia
Procedure History: R transmetatarsal amputation and bilateral subcutaneous debridement down to the level of muscle with excision of nonviable tissue (nonweightbearing on the right and heel weightbearing on the left for transfers)
Family History: Not pertinent
Social History:
Functional Level Premorbidly: Independent with all activities prior to TMA. Used wheelchair prior to admission.
Functional Level Currently: Moderate assistance with transfer, dependent with lower extremity self-care, supervision with mobility
Tobacco: Denies
Alcohol: Drinks a glass of wine 3 times a week�
Drug use: Denies
Lives with: Spouse
Number of floors: 1
# steps to enter: 2
Driving: No
Occupation: Retired
Allergies:
Allergy/AdvReac Type Severity Reaction Status Date / Time
No Known Allergies Allergy Verified 09/25/24 21:15
Allergies / Home Medications
Allergy/AdvReac Type Severity Reaction Status Date / Time
No Known Allergies Allergy Verified 09/25/24 21:15
�Medication �Instructions �Recorded �Confirmed �Last Taken �Type
carvedilol 6.25 mg tablet 6.25 mg PO BID Heart 07/23/23 09/26/24 Unknown History
Disease/Condition
prednisone 5 mg tablet 5 mg PO DAILY Anti-Inflammatory 07/23/23 08/14/24 Unknown History
tacrolimus 1 mg capsule, 2 mg PO Q12H renal transplant 07/23/23 09/26/24 Unknown History
immediate-release (Prograf)
vibegron 75 mg tablet 75 mg PO DAILY Urinary Issue 07/23/23 08/14/24 Unknown History
aspirin 81 mg tablet,delayed 81 mg PO DAILY Blood Clot 08/14/24 09/26/24 Unknown History
release Prevention/Tx
atorvastatin 40 mg tablet (Lipitor) 40 mg PO DAILY High Cholesterol 08/14/24 09/26/24 Unknown History
magnesium oxide 400 mg PO DAILY Supplement 08/14/24 09/26/24 Unknown History
mycophenolate sodium 180 mg 720 mg PO BID IMMUNOSUPPRESSANT 08/14/24 08/14/24 Unknown History
tablet,delayed release
omega-3 acid ethyl esters 1 gram 2 cap PO BID Supplement 08/14/24 08/14/24 Unknown History
capsule (Lovaza)
clopidogrel 75 mg tablet 75 mg PO DAILY #90 tabs 08/18/24 Unknown Rx
acetaminophen 325 mg tablet 650 mg (2 x 325 mg) PO Q4HPRN PRN 08/25/24 Unknown Rx
mild pain or temp > 100.4 F #100
tabs
cephalexin 500 mg capsule 500 mg PO QID #40 caps 08/25/24 Unknown Rx
clonazepam 1 mg tablet 1 mg PO BIDPRN PRN anxiety #4 tabs 08/25/24 08/14/24 Unknown Rx
insulin glargine 100 unit/mL (3 20 unit (0.2 mL) SC HS diabetes 08/25/24 09/26/24 Unknown Rx
mL) subcutaneous pen (Lantus #0 mL
Solostar U-100 Insulin)
insulin lispro 100 unit/mL 13 unit (0.13 mL) SC AC Diabetes 08/25/24 09/26/24 02/18/22 18:00 Rx
subcutaneous pen (Humalog KwikPen #0 mL
(U-100) Insulin)
nifedipine 30 mg tablet,extended 30 mg PO DAILY #30 tabs 08/25/24 09/26/24 Unknown Rx
release
Review of Systems:
Constitutional: (x) abNormal _fatigue
Eye: (x) Normal _
Ear/Nose/Throat: (x) Normal _
Respiratory: (x) Normal _
Cardiovascular: (x) Normal _
Gastrointestinal: (x) Normal _
Genitourinary: (x) Normal _
Musculoskeletal: (x) abNormal _Limited weightbearing left heel, nonweightbearing right heel
Integumentary: (x) abNormal _recent surgery left foot and right heel
Neurologic: (x) abNormal _
Psychiatric: (x) Normal _
Endocrine: (x) Normal _
Hematologic/Lymphatic: (x) Normal _
Allergic/Immunologic: (x) Normal _
Review Of Systems
-
All other systems: Unreviewed
Assessment / Plan
Plan
PM&R PT/OT to increase independence with ADLs, improve balance, coordination, endurance, strength, mobility, community reintegration, decreased burden of care on others and family education.
Peripheral polyneuropathy: Patient with diabetic neuropathy. It is reasonable to consider gabapentin.
Renal Transplant: Continue immunosuppressive and prophylactic therapies. Monitor CBC, BMP, LFTs, magnesium, phosphorus, tacrolimus.
Status post right TMA: monitor incision, edema control with BONIFACIO wrap, pain control, incision care per podiatry, desensitization, [place] limb pain education, maintain full ROM at hip and knee.
HTN: continue medications, monitor closely
HLD: Statin
HFpEF: continue aspirin, statin, coreg, plavix. EF 65-70%, continue lasix, monitor fluid status
DM II: Accu-Cheks, adjust insulin lantus and aspart as needed.
Urosepsis and bacteremia: Complete course of antibiotics, plan for transition to p.o. amoxicillin 1 g every 8 hours through 10/10/2024.
Anemia: Hemoglobin 9 from 7 and 8 range. Continue to monitor, no active bleeding noted.
Psych: Appropriate mood.
Skin: monitor for pressure sores/rashes/lesions.
Pain: acetaminophen, gabapentin or oxycodone as needed.
Bowel: Colace and Senna, PRN bisacodyl.
Bladder: Time void, PVRs, PRN straight cath.
Gastric ulcer: Pantoprazole twice daily x8 weeks. Repeat EGD scheduled in 8 weeks.
DVT Prophylaxis: SCDs given GI bleeding
Pulmonary: Incentive spirometry
Safety: Continue to reinforce assistance with all transfers.
Code Status: Full code
Dispo (date/plan/equipment needs): half-way facility. Social history reviewed.
Functional and Medical Goals: Modified Independent with ADL�s, ambulation, transfers
Attending addendum: Patient seen and examined with resident. Agree with above history with changes as noted below.
74-year-old male with recent right transmetatarsal amputation and left foot soft tissue surgical intervention with weakness, confusion and fatigue from urosepsis. Also with anemia with dark stools requiring multiple units of PRBCs. EGD noting a
clean base gastric ulcer with plan for PPI twice a day for 8 weeks. Noted with Enterococcus bacteremia and started on ceftriaxone and ampicillin. Repeat blood cultures negative. Also with fluid overload requiring diuresis. Hospital stay also
significant for acute heart failure with preserved ejection fraction.
Physical Exam:
General Appearance/Observation: Well-developed, well-nourished male in no apparent distress with atrophy in bilateral hands.
Pain/Comfort Assessment: Pain in bilateral lower extremities
Mood/Affect: Appropriate, frustrated
Integumentary/Operative Site: Right TMA site with incision healing, has Bonifacio wrap and Darco shoe. Left foot not visualized.
Eyes: Conjunctiva/Lids: normal Pupils: pupils equal round and reactive to light
Ears/Nose/Throat: oral mucosa moist, throat clear. Lips/Teeth/Gums: normal
Cardiovascular: Heart: regular, no murmur
Pulses: dorsalis pedis 2+ bilaterally
Respiratory: Respiratory Effort/Chest Expansion: normal Auscultation: Clear to auscultation bilaterally
Gastrointestinal: abdomen not tender, distended w/o tenderness/guarding/rebound, normal abdominal bowel sounds
Genitourinary: No [place]
Rectal Exam: Deferred
Extremities: Edema: Mild right lower extremity more than left, no calf tenderness.
Neurology Exam:
Orientation: Alert, Oriented to self, Time, Place
Memory: Intact for recent medical concerns
Comprehension: Intact
Two step command: Intact
Cranial Nerves:
CNII: Pupillary light reflex: Intact
CN VII: Facial movement: Symmetric
CN VIII: Hearing: Normal
CN IX/X: Speech & swallow: Normal, Position of Uvula: Midline
CN XI: Shoulder shrug: Symmetric
CN XII: Tongue protrusion: Midline
Sensory:
Light touch: Decreased in stocking and glove distribution bilaterally
Reflexes:
Biceps: 2+ bilaterally
Brachioradialis: 2+ bilaterally
Triceps: 2+ bilaterally
Patellar: 2+ bilaterally
Achilles: 0 bilaterally
Babinski: Downgoing left
Clonus: None
Carri: Negative bilaterally
Cerebellar: Dysmetria/Ataxia: None
Musculoskeletal: Motor: (Manual muscle scale 0-5)
Muscle SA EF WE EE FF FA HF KE DF EHL PF
Right 5 5 5 5 5 3+ 4+ 5 4 - 4
Left 5 5 5 5 5 3+ 4+ 5 5 5 4+
Tone: Normal in all extremities
Range of Motion: Passively within functional limits in all extremities
Atrophy of dorsal interossei muscles in bilateral hands.
Assessment
74 y/o M PMH (hypertension, DM-II, ESRD from diabetic nephropathy s/p renal transplant (donor daughter) in 10/2022 at [facility] [place], MMF, prednisone and monthly Belatacept, hyperlipidemia) with recent right transmetatarsal amputation and left foot
soft tissue surgical intervention with anemia with dark stools requiring multiple units of PRBCs, clean base gastric ulcer, Enterococcus bacteremia and acute heart failure with preserved ejection fraction with ADL and ambulatory dysfunction.
Plan
PM&R PT/OT to increase independence with ADLs, improve balance, coordination, endurance, strength, mobility, community reintegration, decreased burden of care on others and family education.
Diabetic peripheral polyneuropathy: Patient with diabetic neuropathy. It is reasonable to consider gabapentin. Can start off with gabapentin 100 mg at night and titrate up to 3 times daily. Can continue to titrate up to higher doses as necessary.
Renal Transplant: Continue immunosuppressive and prophylactic therapies. Monitor CBC, BMP, LFTs, magnesium, phosphorus, tacrolimus.
Status post right TMA: Nonweightbearing. Follow-up weightbearing ability with Dr. Samano monitor incision, edema control with BONIFACIO wrap, pain control, incision care per podiatry, desensitization, [place] limb pain education, maintain full ROM at hip
and knee.
Left foot surgical intervention: Left weightbearing through heel only, follow-up with Dr. Samano regarding progression of weightbearing.
HTN: continue medications, monitor closely
HLD: Statin
HFpEF: continue aspirin, statin, coreg, plavix. EF 65-70%, continue lasix, monitor fluid status
Uncontrolled DM II: Accu-Cheks, adjust insulin lantus and aspart as needed.
Urosepsis and bacteremia: Complete course of antibiotics, plan for transition to p.o. amoxicillin 1 g every 8 hours through 10/10/2024.
Anemia: Hemoglobin 9 from 7 and 8 range. Continue to monitor, no active bleeding noted.
Psych: Appropriate mood.
Skin: monitor for pressure sores/rashes/lesions.
Pain: acetaminophen, gabapentin or oxycodone as needed.
Bowel: Colace and Senna, PRN bisacodyl.
Bladder: Time void, PVRs, PRN straight cath.
Gastric ulcer: Pantoprazole twice daily x8 weeks. Repeat EGD scheduled in 8 weeks.
DVT Prophylaxis: SCDs given GI bleeding consider chemoprophylaxis if okay with GI.
Pulmonary: Incentive spirometry
Safety: Continue to reinforce assistance with all transfers.
Code Status: Full code
Dispo (date/plan/equipment needs): half-way facility. Social history reviewed.
Functional and Medical Goals: Modified Independent with ADL�s, ambulation, transfers
Discharge destination: half-way facility. Discussed with case management
A total of 60 minutes were spent with the patient preparing for the evaluation, obtaining history, performing examination and evaluation, counseling, data review, case management, care coordination, service order dispatcher, and EMR documentation.
Summary
-
Summary of recommendations:
- Discharge Destination: half-way facility
Diabetic peripheral polyneuropathy: Patient with diabetic neuropathy. It is reasonable to consider gabapentin. Can start off with gabapentin 100 mg at night and titrate up to 3 times daily. Can continue to titrate up to higher doses as necessary.
Status post right TMA: Nonweightbearing. Follow-up weightbearing ability with Dr. Samano monitor incision, edema control with BONIFACIO wrap, pain control, incision care per podiatry, desensitization, [place] limb pain education, maintain full ROM at hip
and knee.
Left foot surgical intervention: Left weightbearing through heel only, follow-up with Dr. Samano regarding progression of weightbearing.
Urosepsis and bacteremia: plan for transition to p.o. amoxicillin 1 g every 8 hours through 10/10/2024.
Bowel: Colace and Senna, PRN bisacodyl.
Bladder: Time void, PVRs, PRN straight cath.
DVT Prophylaxis: consider chemoprophylaxis if okay with GI.
Thank you for allowing me to care for your patient. Please contact me with any questions or concerns.
--- NOTE | 2024-10-02 11:39 | W.PN.HOSP.TC ---
Today's Communication/Plan
-
Spoke to case management, for discharge awaiting on PM&R needs acute rehab per physical therapy
Assessment / Plan
Assessment / Plan
Physical Exam
General: Negative Cachectic
HEENT: Oxygen
Respiratory: Faint wheezes bilaterally
Cardiac: Regular Rhythm and S1/S2
GI: Soft, Nontender and Nondistended. Positive bowel sounds.
Neuro: Awake, Alert, AO x 3 and No Motor Deficits
Psych: Calm
Assessment/Plan
Sepsis secondary to the above
Enterococcal UTI and bacteremia
Immunocompromised state with history of renal transplant
-Blood culture 2 sets grew Enterococcus faecalis
-Urine culture also growing enterococci faecalis
-Initial CT abdomen pelvis did not show any obstruction/pyelonephritis/abscess
-Zosyn changed to Rocephin and Ampicillin this point further susceptibility pending and may require vancomycin
-TTE showed no clear vegetation
-ID consulted and input noted.
-When stable for discharge, transition to po amoxicillin 1000mg po q8h through 10/10/24
Shortness of Breath 09/27/24 to 09/28/24
Acute Hypoxic Respiratory Insufficiency
SEVERE ACUTE INTERSTITIAL and ALVEOLAR CARDIOGENIC PULMONARY EDEMA on CT Chest
Small bilateral pleural effusions with adjacent compressive bibasilar subsegmental atelectasis.
-CXR from 09/28/24 showed cardiomegaly with mild pulmonary edema and a new small right pleural effusion, but echo done from same day
and results showed normal LVEF, normal right ventricle, normal pericardium (but CXR was done after echo)
-proBNP 8240 -- could be from kidney disease vs. CHF
-Lasix IV 20 mg - 2 doses given on 09/28/24 with improvement in symptoms
-Continue Lasix IV 20 mg daily --> possible transition to PO Lasix per nephrology today
-Resume antihypertensives (Nifedipine) as high blood pressure can possibly contribute to the pulmonary edema
-Okay to stop IVF as per nephrology as per my communication with nephrology via [facility], on 09/28/24
-Given elevated proBNP and new cardiomegaly on CXR, and suspected new-onset HFpEF, cardiology consulted --> patient has been getting IV diuresis
-Speech consultation: regular textures and thin liquids and aspiration precautions
Possible Bowel Obstruction on Abdominal X-Ray on 09/28/24 -- RULED OUT
-Patient reported nausea earlier in the day on 09/28/24
-CT imaging of the abdomen/pelvis ordered showed no bowel obstruction
-Continue diet
-No need for general surgery consultation at this time
Mild gaseous distention of the stomach with 2 mildly gas-distended loops of small bowel in the left hemiabdomen
-Discussed with surgery, patient's large gastric bubble -- may have some delayed gastric emptying due to his ulcer
-Can consider UGI if patient has symptoms of indigestion/nausea/vomiting
Acute blood loss anemia
R/o GI bleed
-s/p total of 3 u prbc's this hospitalization
-maintain on PPI
-GI EGD on 09/28/24, communication via [facility]: clean based gastric ulcer. needs ppi po bid for 8 weeks. GI office will call him for f/u as he needs a
repeat in 8 weeks -- PPI changed to PO BID
SHERRY on CKD III
s/p Renal Transplant
Metabolic acidosis
-baseline cr of 1.1. then increased to 1.8 -- improved with IV diuresis as above -- now back down to 1.1
-Tacrolimus level 08/19 was 5.8, repeat is 5.2 (from 09/27/24)
-Maintained on tacrolimus/prednisone/mycophenolate
-Nephrology following.
Hypokalemia
-Replaced
-Continue to monitor BMP
B/l LE Wounds
ASCVD / PAD
-Stable. Recent admission with amputation / wound debridement.
-Wounds / surgical sites are well appearing without evidence of active infection, erythema, discharge, etc.
-Wound Care eval for continued local care.
-Continue current CV med regimen s/p recent RLE balloon angioplasty.
Moderate diffuse subcutaneous edema in both lower legs.
Small volume of abdominal and pelvic ascites
Benign Hypertension
-Amlodipine 1x dose added on 09/29/24 -- resume home Nifedipine 30 mg daily (with parameters)
-Holding parameters for Coreg.
-prn Hydralazine
Mild hepatomegaly on CT Imaging
Mild duodenal wall thickening (possibly peptic ulcer disease) on CT Imaging
Mild wall thickening in the ascending and transverse colon suggesting a mild colitis on CT Imaging
DM-II - Uncontrolled
- Stable. Increased Insulin basal and premeal doses slightly (slightly increased in order to avoid hypoglycemia)
- Follow glucose and cover with SSI as needed.
Anxiety
- Stable. Continue clonazepam PRN.
Hyponatremia
-monitor
DVT Prophylaxis: SCDs only. GI mentioned ideally not a good idea to resume chemical DVT prophylaxis given that patient had bleeding suspected due to ulcer. Continue compression and ambulation if possible.
Code Status: Full Code
Anticipated Discharge: Today
Subjective/Interval History
-
Date of Service: October 02, 2024
Patient was seen and examined. He was still short of breath, still urinating a lot per him.
Objective Data
-
Labs:
Laboratory Results
10/02/24
08:12
WBC 9.0
Hgb 9.3 L
Hct 28.8 L
Plt Count 301 D
Sodium 139
Potassium 4.0
Chloride 103
Carbon Dioxide 27
BUN 22 H
Creatinine 1.1
Glucose 189 H
Calcium 8.8
Vital Signs:
Vital Signs
Temp Pulse Resp BP Pulse Ox
97.5 F 63 18 143/52 90
10/02/24 11:12 10/02/24 11:12 10/02/24 11:12 10/02/24 11:12 10/02/24 11:12
I&O
10/01/24 10/02/24 10/03/24
06:59 06:59 06:59
Intake Total 660 / 660 480 / 480
Output Total 5 / 5 1974
Balance -1964 / -1965 -1495 / -1495
--- NOTE | 2024-10-02 11:48 | W.PN.NEPH.PH ---
Today's Communication / Plan
-
po lasix
Assessment/Plan
-
Assessment:
Sepsis
enterococcal bacteremia and UTI
SHERRY on CKD III-baseline cr 1.3-1.5
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
Heme Positive Stools
Acute Blood Loss Anemia
b/l LE Wounds
ASCVD / PAD
Benign Hypertension
Anxiety
h/o syncope from severe orthostatic hypotension
-DM2-with microvascular complications
Anxiety, Insomnia
BPH
Plan:
follow BMP
lasix 20mg po daily
follow PVR, may need frausto back
maintain FR
cont IS Tac, MMF and Pred, Tac level 5.2 on admit
PPI per GI
flomax daily
-
-
Date of Service: October 02, 2024
CC / HPI / ROS
-
Chief Complaint:
SHERRY with CKD h/o KTP
History of Present Illness:
SHERRY/Cr better at 1.1
BP stable
Frausto out, but high PVR still
abx for enterococcus sepsis
Review of Systems:
no n/v
no CP
no sob on RA
Labs
-
Labs:
WBC 9.0 10^3/uL (4.8-10.8) 10/02/24 08:12
RBC 3.33 10^6/uL (4.70-6.10) L 10/02/24 08:12
Hgb 9.3 g/dL (13.0-18.0) L 10/02/24 08:12
Hct 28.8 % (39.0-52.0) L 10/02/24 08:12
Plt Count 301 10^3/uL (130-400) D 10/02/24 08:12
Sodium 139 mmol/L (135-145) 10/02/24 08:12
Potassium 4.0 mmol/L (3.5-5.1) 10/02/24 08:12
Chloride 103 mmol/L (98-107) 10/02/24 08:12
Carbon Dioxide 27 mmol/L (22-30) 10/02/24 08:12
BUN 22 mg/dl (9-20) H 10/02/24 08:12
Creatinine 1.1 mg/dL (0.7-1.3) 10/02/24 08:12
eGFR > 60.00 10/02/24 08:12
Glucose 189 mg/dl (70-99) H 10/02/24 08:12
Calcium 8.8 mg/dl (8.4-10.2) 10/02/24 08:12
Phosphorus 3.5 mg/dl (2.5-4.5) 09/26/24 05:35
Rkq-L-Glkcwphpzai Pept 8240 pg/ml 09/28/24 15:50
Albumin 2.7 g/dl (3.5-5.0) L 10/01/24 05:42
Physical Exam
-
Vital Signs:
Vital Signs
Temp Pulse Resp BP Pulse Ox
97.5 F 63 18 143/52 90
10/02/24 11:12 10/02/24 11:12 10/02/24 11:12 10/02/24 11:12 10/02/24 11:12
Cardiovascular:: Regular rate and rhythm
Respiratory:: Bilateral: CTA
Lung Excursion:: Normal
Abdomen:: Nontender and Soft
Bowel Sounds:: Normal
Extremity Edema:: None: Bilateral:
[2024-10-02 11:53] LABS: Glucose - Point of Care 203 mg/dl (70-99)
[2024-10-02] MEDS: PLAVIX 75 MG PO (14:13)
[2024-10-02] MEDS: LOW STRENGTH ASPIRIN 81 MG PO (14:13)
[2024-10-02] MEDS: NOVOLOG FLEXPEN 4 UNITS SC ×2 (14:14→18:12)
[2024-10-02] MEDS: NOVOLOG FLEXPEN SC (14:24)
[2024-10-02] MEDS: NEURONTIN 100 MG PO (14:38)
--- NOTE | 2024-10-02 16:29 | CM ---
operating manager continues to follow with patient progress, patient is NON WB on right and heel WB on left, referral sent to [facility] acute [facility] and PM&R pending, case resolution specialist also discussed [facility] and [facility], referrals sent.
Plan; Rehab placement.
[2024-10-02 17:50] LABS: Glucose - Point of Care 176 mg/dl (70-99)
[2024-10-02] MEDS: NOVOLOG FLEXPEN-LOW RESISTANCE 1 UNITS SC (18:13)
[2024-10-02] MEDS: APRESOLINE 5 MG IV ×2 (21:27→23:14)
[2024-10-02] MEDS: LANTUS 0.16 UNITS SC (21:31)
[2024-10-03] VITALS (9 sets, daily range): BP systolic 108–193; BP diastolic 52–72; BMI 29.6
[2024-10-03 01:27] LABS: Glucose - Point of Care 147 mg/dl (70-99)
[2024-10-03] MEDS: APRESOLINE 5 MG IV ×3 (01:30→21:04)
[2024-10-03] MEDS: AMPICILLIN 108 MG IV ×4 (05:45→23:46)
[2024-10-03 06:08] LABS: % Basophils 0.8 % (0-2); % Eosinophils 2.3 % (0-6); % Immature Granulocytes 3.5 % (0-0.5); % Lymphocytes 15.8 % (20.5-51.1); % Monocytes 9.5 % (1.7-9.3); % Neutrophils 68.1 % (42.2-75.2); Absolute Basophils 0.1 10^3/uL (0-0.2); Absolute Eosinophils 0.2 10^3/uL (0-0.7); Absolute Immature Granulocytes 0.3 10^3/uL (0-0.05); Absolute Lymphocytes 1.5 10^3/uL (1.2-3.4); Absolute Monocytes 0.9 10^3/uL (0.1-0.6); Absolute Neutrophils 6.6 10^3/uL (1.4-6.5); Hematocrit 28.5 % (39.0-52.0); Hemoglobin 9.3 g/dL (13.0-18.0); Mean Corp Hgb Conc. 32.6 g/dL (33.0-37.0); Mean Corpuscular Hgb 28.3 pg (27.0-31.0); Mean Corpuscular Volume 86.6 fL (80.0-94.0); Mean Platelet Volume 10.8 fL (7.4-10.4); Nucleated Red Blood Cells % 0.2 % (-); Platelet Count 326 10^3/uL (130-400); Red Blood Cell Count 3.29 10^6/uL (4.70-6.10); Red Cell Dist. Width 15.5 % (11.5-14.5); White Blood Cell Count 9.6 10^3/uL (4.8-10.8)
[2024-10-03 06:33] LABS: Blood Urea Nitrogen 17 mg/dl (9-20); Calcium 8.7 mg/dl (8.4-10.2); Carbon Dioxide 27 mmol/L (22-30); Chloride 103 mmol/L (98-107); Estimated Creatinine Clearance 74 ml/min; Glucose 127 mg/dl (70-99); Magnesium 1.5 mg/dl (1.6-2.3); Potassium 3.9 mmol/L (3.5-5.1); Sodium 138 mmol/L (135-145); eGFR > 60.00
[2024-10-03 07:27] LABS: Glucose - Point of Care 141 mg/dl (70-99)
[2024-10-03] MEDS: NOVOLOG FLEXPEN-LOW RESISTANCE SC ×2 (07:47→12:13)
[2024-10-03] MEDS: PROCARDIA XL (EXTENDED RELEASE) 30 MG PO (08:27)
[2024-10-03] MEDS: MYFORTIC DELAYED REL. 720 MG PO ×2 (08:27→20:58)
[2024-10-03] MEDS: PROGRAF 2 MG PO ×2 (08:27→20:57)
[2024-10-03] MEDS: DELTASONE 5 MG PO (08:28)
[2024-10-03] MEDS: FLOMAX 0.4 MG PO ×2 (08:28→10:56)
[2024-10-03] MEDS: LOW STRENGTH ASPIRIN 81 MG PO (08:28)
[2024-10-03] MEDS: LIPITOR 40 MG PO (08:28)
[2024-10-03] MEDS: PROTONIX 40 MG PO ×2 (08:28→20:57)
[2024-10-03] MEDS: LASIX 20 MG PO (08:28)
[2024-10-03] MEDS: PLAVIX 75 MG PO (08:28)
[2024-10-03] MEDS: COREG 6.25 MG PO ×2 (08:28→20:49)
[2024-10-03] MEDS: LAC HYDRIN, AM LACTIN LOTION 1 APPLIC TOPICAL ×2 (08:29→20:49)
[2024-10-03] MEDS: NOVOLOG FLEXPEN 4 UNITS SC ×3 (08:30→16:13)
--- NOTE | 2024-10-03 09:50 | W.PN.HOSP.TC ---
Today's Communication/Plan
-
see A/P
Assessment / Plan
Assessment / Plan
Assessment/Plan
# Sepsis POA 2/ Enterococcal bacteremia and UTI
# Immunocompromised state with history of renal transplant
Blood culture 2 sets grew Enterococcus faecalis, negative since 09/28
Urine culture also grew enterococci faecalis
Initial CT abdomen pelvis did not show any obstruction/pyelonephritis/abscess
Zosyn was changed to Rocephin and Ampicillin, with plan to transition to po amoxicillin 1000mg po q8h through 10/10/24 per ID
TTE showed no clear vegetation
# Shortness of Breath with Acute Hypoxic Respiratory Insufficiency, likely new-onset HFpEF
# SEVERE ACUTE INTERSTITIAL and ALVEOLAR CARDIOGENIC PULMONARY EDEMA on CT Chest
# Small bilateral pleural effusions with adjacent compressive bibasilar subsegmental atelectasis.
Echo showed normal LVEF, normal right ventricle, normal pericardium
proBNP 8240
s/p Lasix IV 20 mg x2 doses with improvement in symptoms
IV Lasix 20 mg daily to PO 20 mg daily
# Acute blood loss anemia
R/o GI bleed
s/p total of 3 u prbc's this hospitalization
maintain on PPI
GI EGD on 09/28/24: clean based gastric ulcer. Needs ppi po bid for 8 weeks. GI office will call him for f/u as he needs a repeat in 8 weeks
# SHERRY on CKD III
# Metabolic acidosis, resoled
# h/o Renal Transplant
SCr peaked at 1.8, back to baseline at 1.1 today
Maintained on tacrolimus/prednisone/mycophenolate. Tacrolimus level 08/19 was 5.8, repeat is 5.2 (from 09/27/24)
Nephrology following.
# Hypokalemia, replaced and resolved
# ASCVD / PAD, Stable.
# Moderate diffuse subcutaneous edema in both lower legs.
# Recent admission for Right foot transmetatarsal amputation for Right foot dried forefoot gangrene and bilateral subcutaneous debridement
Wounds / surgical sites are well appearing without evidence of active infection, erythema, discharge, etc.
Wound Care eval for continued local care.
# Benign Hypertension
Cont home Coreg and Nifedipine (with parameters)
prn Hydralazine
# IDDM, Stable.
Aspart 4 units AC, Lantus 16 units HS
Follow glucose and cover with SSI as needed.
# Anxiety, Stable.
Continue clonazepam PRN.
# Hyponatremia
monitor
DVT Prophylaxis: SCDs only.
Code Status: Full Code
Dispo: SNF per PMR eval
Anticipated Discharge: > 48 hours
Subjective/Interval History
-
Date of Service: October 03, 2024
Objective Data
-
Labs:
Laboratory Results
10/03/24
05:19
WBC 9.6
Hgb 9.3 L
Hct 28.5 L
Plt Count 326
Sodium 138
Potassium 3.9
Chloride 103
Carbon Dioxide 27
BUN 17
Creatinine 1.1
Glucose 127 H
Calcium 8.7
Vital Signs:
Vital Signs
Temp Pulse Resp BP Pulse Ox
36.7 C 62 16 108/62 96
10/03/24 07:00 10/03/24 07:00 10/03/24 07:00 10/03/24 07:00 10/03/24 07:00
I&O
10/02/24 10/03/24 10/04/24
06:59 06:59 06:59
Intake Total 480 / 480 960 / 960
Output Total 1974 2800 / 2800
Balance -1495 / -1495 -1840 / -1840
Review of Systems
-
History Source: Patient
All other systems: Reviewed and negative
Physical Exam
-
General: Well Developed, Well Nourished, No Apparent Distress, Comfortable and Conversant
HEENT: Normocephalic and Atraumatic
Respiratory: Clear to Auscultation and Non Labored Respirations; Negative Accessory Resp Muscle Use
Cardiac: Regular Rhythm and S1/S2
GI: Soft, Nontender and Nondistended
Skin: Other (R foot in wound dressing )
Neuro: Awake, Alert and Oriented
Psych: Calm and Intact Judgement/Insight
Data Reviewed
-
Labs: Labs Reviewed by me
--- NOTE | 2024-10-03 10:32 | W.PN.NEPH.PH ---
Today's Communication / Plan
-
continue lasix
Assessment/Plan
-
Assessment:
Sepsis
enterococcal bacteremia and UTI
SHERRY on CKD III-baseline cr 1.3-1.5
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
Heme Positive Stools
Acute Blood Loss Anemia
b/l LE Wounds
ASCVD / PAD
Benign Hypertension
Anxiety
h/o syncope from severe orthostatic hypotension
-DM2-with microvascular complications
Anxiety, Insomnia
BPH
Plan:
follow BMP
lasix 20mg po daily
follow PVR, may need frausto back
maintain FR
cont IS Tac, MMF and Pred, Tac level 5.2 on admit
PPI per GI
flomax daily, increase to 0.8
-
-
Date of Service: October 03, 2024
CC / HPI / ROS
-
Chief Complaint:
SHERRY with CKD h/o KTP
History of Present Illness:
SHERRY/Cr stable at 1.1
BP stable
Frausto out, but high PVR still
abx for enterococcus sepsis
Review of Systems:
no n/v
no CP
no sob on RA
nonoliguric with lasix
Labs
-
Labs:
WBC 9.6 10^3/uL (4.8-10.8) 10/03/24 05:19
RBC 3.29 10^6/uL (4.70-6.10) L 10/03/24 05:19
Hgb 9.3 g/dL (13.0-18.0) L 10/03/24 05:19
Hct 28.5 % (39.0-52.0) L 10/03/24 05:19
Plt Count 326 10^3/uL (130-400) 10/03/24 05:19
Sodium 138 mmol/L (135-145) 10/03/24 05:19
Potassium 3.9 mmol/L (3.5-5.1) 10/03/24 05:19
Chloride 103 mmol/L (98-107) 10/03/24 05:19
Carbon Dioxide 27 mmol/L (22-30) 10/03/24 05:19
BUN 17 mg/dl (9-20) 10/03/24 05:19
Creatinine 1.1 mg/dL (0.7-1.3) 10/03/24 05:19
eGFR > 60.00 10/03/24 05:19
Glucose 127 mg/dl (70-99) H 10/03/24 05:19
Calcium 8.7 mg/dl (8.4-10.2) 10/03/24 05:19
Phosphorus 3.5 mg/dl (2.5-4.5) 09/26/24 05:35
Xza-P-Ryucmupcnuq Pept 8240 pg/ml 09/28/24 15:50
Albumin 2.7 g/dl (3.5-5.0) L 10/01/24 05:42
Physical Exam
-
Vital Signs:
Vital Signs
Temp Pulse Resp BP Pulse Ox
98.1 F 62 16 108/62 96
10/03/24 07:00 10/03/24 07:00 10/03/24 07:00 10/03/24 07:00 10/03/24 07:00
Cardiovascular:: Regular rate and rhythm
Respiratory:: Bilateral: CTA
Lung Excursion:: Normal
Abdomen:: Nontender and Soft
Bowel Sounds:: Normal
Extremity Edema:: None: Bilateral:
[2024-10-03] MEDS: MAGNESIUM SULFATE 100 IV (10:55)
[2024-10-03] MEDS: STERILE WATER FOR INJECTION 20 ML IV ×2 (10:57→21:00)
[2024-10-03] MEDS: ROCEPHIN 2000 MG IV ×2 (10:57→21:00)
[2024-10-03 12:06] LABS: Glucose - Point of Care 149 mg/dl (70-99)
[2024-10-03 15:58] LABS: Glucose - Point of Care 170 mg/dl (70-99)
[2024-10-03] MEDS: NOVOLOG FLEXPEN-LOW RESISTANCE 1 UNITS SC (16:14)
[2024-10-03] MEDS: KLONOPIN 0.5 MG PO (21:04)
[2024-10-03 21:15] LABS: Glucose - Point of Care 265 mg/dl (70-99)
[2024-10-03] MEDS: LANTUS 0.16 UNITS SC (21:25)
[2024-10-04] VITALS (7 sets, daily range): BP systolic 125–198; BP diastolic 54–71; BMI 29.5
[2024-10-04] MEDS: APRESOLINE 5 MG IV (02:53)
[2024-10-04] MEDS: AMPICILLIN 108 MG IV ×4 (05:15→23:12)
[2024-10-04 07:12] LABS: Hematocrit 30.5 % (39.0-52.0); Hemoglobin 9.8 g/dL (13.0-18.0); Mean Corp Hgb Conc. 32.1 g/dL (33.0-37.0); Mean Corpuscular Hgb 27.9 pg (27.0-31.0); Mean Corpuscular Volume 86.9 fL (80.0-94.0); Mean Platelet Volume 10.7 fL (7.4-10.4); Platelet Count 325 10^3/uL (130-400); Red Blood Cell Count 3.51 10^6/uL (4.70-6.10); Red Cell Dist. Width 15.9 % (11.5-14.5); White Blood Cell Count 10.7 10^3/uL (4.8-10.8)
[2024-10-04 07:31] LABS: Glucose - Point of Care 264 mg/dl (70-99)
[2024-10-04 07:48] LABS: Blood Urea Nitrogen 16 mg/dl (9-20); Calcium 8.6 mg/dl (8.4-10.2); Carbon Dioxide 27 mmol/L (22-30); Chloride 101 mmol/L (98-107); Estimated Creatinine Clearance 65 ml/min; Glucose 219 mg/dl (70-99); Sodium 137 mmol/L (135-145); eGFR > 60.00
[2024-10-04] MEDS: NOVOLOG FLEXPEN-LOW RESISTANCE 3 UNITS SC (07:52)
[2024-10-04] MEDS: NOVOLOG FLEXPEN 4 UNITS SC ×3 (07:53→16:02)
[2024-10-04] MEDS: LASIX 20 MG PO (07:56)
[2024-10-04] MEDS: COREG 6.25 MG PO ×2 (07:57→21:40)
[2024-10-04] MEDS: DELTASONE 5 MG PO (07:57)
[2024-10-04] MEDS: PLAVIX 75 MG PO (07:57)
[2024-10-04] MEDS: PROTONIX 40 MG PO ×2 (07:57→21:43)
[2024-10-04] MEDS: LOW STRENGTH ASPIRIN 81 MG PO (07:57)
[2024-10-04] MEDS: PROGRAF 2 MG PO ×2 (07:58→21:43)
[2024-10-04] MEDS: LIPITOR 40 MG PO (07:58)
[2024-10-04] MEDS: LAC HYDRIN, AM LACTIN LOTION 1 APPLIC TOPICAL ×2 (07:59→21:41)
[2024-10-04] MEDS: MYFORTIC DELAYED REL. 720 MG PO ×2 (08:00→21:41)
[2024-10-04] MEDS: PROCARDIA XL (EXTENDED RELEASE) 30 MG PO ×2 (08:01→09:32)
--- NOTE | 2024-10-04 09:01 | W.PN.HOSP.TC ---
Today's Communication/Plan
-
see A/P
Assessment / Plan
Assessment / Plan
Assessment/Plan
# Sepsis POA 2/ Enterococcal bacteremia and UTI
# Immunocompromised state with history of renal transplant
Blood culture 2 sets grew Enterococcus faecalis, negative since 09/28
Urine culture also grew enterococci faecalis
Initial CT abdomen pelvis did not show any obstruction/pyelonephritis/abscess
Zosyn was changed to Rocephin and Ampicillin, with plan to transition to po amoxicillin 1000mg po q8h through 10/10/24 per ID
TTE showed no clear vegetation
# Acute urinary retention
Cont Flomax
Cont straight cath for now, may possibly need [place] if retention continues
# Shortness of Breath with Acute Hypoxic Respiratory Insufficiency, likely new-onset HFpEF
# SEVERE ACUTE INTERSTITIAL and ALVEOLAR CARDIOGENIC PULMONARY EDEMA on CT Chest
# Small bilateral pleural effusions with adjacent compressive bibasilar subsegmental atelectasis.
Echo showed normal LVEF, normal right ventricle, normal pericardium
proBNP 8240
s/p Lasix IV 20 mg x2 doses with improvement in symptoms
IV Lasix 20 mg daily to PO 20 mg daily
# Acute blood loss anemia
R/o GI bleed
s/p total of 3 u prbc's this hospitalization
maintain on PPI
GI EGD on 09/28/24: clean based gastric ulcer. Needs ppi po bid for 8 weeks. GI office will call him for f/u as he needs a repeat in 8 weeks
# SHERRY on CKD III
# Metabolic acidosis, resoled
# h/o Renal Transplant
SCr peaked at 1.8, back to baseline, at 1.1 today
Maintained on tacrolimus/prednisone/mycophenolate. Tacrolimus level 08/19 was 5.8, repeat is 5.2 (from 09/27/24)
Nephrology following.
# Hypokalemia, replaced and resolved
# ASCVD / PAD, Stable.
# Moderate diffuse subcutaneous edema in both lower legs.
# Recent admission for Right foot transmetatarsal amputation for Right foot dried forefoot gangrene and bilateral subcutaneous debridement
Wounds / surgical sites are well appearing without evidence of active infection, erythema, discharge, etc.
Wound Care eval for continued local care.
# Neuropathic (shooting) pain RLE from recent surgery
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
Cont Tylenol, add tramadol 25 mg PRN
# Benign Hypertension
Cont home Coreg and Nifedipine (with parameters)
prn Hydralazine
# IDDM, Stable.
Cont Aspart 4 units AC,
Adjust Lantus back to 20 units HS
Follow glucose and cover with SSI as needed.
# Anxiety, Stable.
Continue clonazepam PRN.
# Hyponatremia
monitor
DVT Prophylaxis: SCDs only.
Code Status: Full Code
Dispo: SNF per PMR eval
DW RN
total time 51 min
Anticipated Discharge: 24 - 48 hours
Subjective/Interval History
-
Date of Service: October 04, 2024
Objective Data
-
Labs:
Laboratory Results
10/04/24
06:29
WBC 10.7
Hgb 9.8 L
Hct 30.5 L
Plt Count 325
Sodium 137
Potassium 4.0
Chloride 101
Carbon Dioxide 27
BUN 16
Creatinine 1.1
Glucose 219 H
Calcium 8.6
Vital Signs:
Vital Signs
Temp Pulse Resp BP Pulse Ox
36.7 C 64 18 181/64 99
10/04/24 07:00 10/04/24 07:56 10/04/24 07:00 10/04/24 07:56 10/04/24 07:00
I&O
03/10/04/24 10/05/24
06:59 06:59 06:59
Intake Total 960 / 960 480 / 480
Output Total 2800 / 2800 1999 / 1999
Balance -1840 / -1840 -1520 / -1520
Review of Systems
-
History Source: Patient
All other systems: Reviewed and negative
Neuro: Reports Other (shooting pain down R leg )
Physical Exam
-
General: Well Developed, Well Nourished, No Apparent Distress, Comfortable and Conversant
HEENT: Normocephalic and Atraumatic
Respiratory: Clear to Auscultation and Non Labored Respirations; Negative Accessory Resp Muscle Use
Cardiac: Regular Rhythm and S1/S2
GI: Soft, Nontender and Nondistended
Skin: Other (R foot in wound dressing )
Neuro: Awake, Alert and Oriented
Psych: Calm and Intact Judgement/Insight
Data Reviewed
-
Labs: Labs Reviewed by me
[2024-10-04] MEDS: NEURONTIN 100 MG PO (09:32)
--- NOTE | 2024-10-04 09:33 | W.PN.NEPH.PH ---
Today's Communication / Plan
-
follow BMP
Assessment/Plan
-
Assessment:
Sepsis
enterococcal bacteremia and UTI
SHERRY on CKD III-baseline cr 1.3-1.5
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
Heme Positive Stools
Acute Blood Loss Anemia
b/l LE Wounds
ASCVD / PAD
Benign Hypertension
Anxiety
h/o syncope from severe orthostatic hypotension
-DM2-with microvascular complications
Anxiety, Insomnia
BPH
Plan:
follow BMP
lasix 20mg po daily
follow PVR, will need to [facility]. Pt requesting urology eval (had TURP previously)
maintain FR
cont IS Tac, MMF and Pred, Tac level 5.2 on admit
PPI per GI
flomax
-
-
Date of Service: October 04, 2024
CC / HPI / ROS
-
Chief Complaint:
SHERRY with CKD h/o KTP
History of Present Illness:
SHERRY/Cr stable at 1.1
BP stable high
[place] out, but high PVR still
abx for enterococcus sepsis
Review of Systems:
no n/v
no CP
no sob on RA
nonoliguric with lasix
Labs
-
Labs:
WBC 10.7 10^3/uL (4.8-10.8) 10/04/24 06:29
RBC 3.51 10^6/uL (4.70-6.10) L 10/04/24 06:29
Hgb 9.8 g/dL (13.0-18.0) L 10/04/24 06:29
Hct 30.5 % (39.0-52.0) L 10/04/24 06:29
Plt Count 325 10^3/uL (130-400) 10/04/24 06:29
Sodium 137 mmol/L (135-145) 10/04/24 06:29
Potassium 4.0 mmol/L (3.5-5.1) 10/04/24 06:29
Chloride 101 mmol/L (98-107) 10/04/24 06:29
Carbon Dioxide 27 mmol/L (22-30) 10/04/24 06:29
BUN 16 mg/dl (9-20) 10/04/24 06:29
Creatinine 1.1 mg/dL (0.7-1.3) 10/04/24 06:29
eGFR > 60.00 10/04/24 06:29
Glucose 219 mg/dl (70-99) H 10/04/24 06:29
Calcium 8.6 mg/dl (8.4-10.2) 10/04/24 06:29
Phosphorus 3.5 mg/dl (2.5-4.5) 09/26/24 05:35
Xoj-W-Dpvflittypr Pept 8240 pg/ml 09/28/24 15:50
Albumin 2.7 g/dl (3.5-5.0) L 10/01/24 05:42
Physical Exam
-
Vital Signs:
Vital Signs
Temp Pulse Resp BP Pulse Ox
98.1 F 64 18 181/64 99
10/04/24 07:00 10/04/24 07:56 10/04/24 07:00 10/04/24 07:56 10/04/24 07:00
Cardiovascular:: Regular rate and rhythm
Respiratory:: Bilateral: Coarse
Lung Excursion:: Normal
Abdomen:: Nontender and Soft
Bowel Sounds:: Normal
Extremity Edema:: +1: Bilateral:
[2024-10-04] MEDS: ULTRAM 25 MG PO ×4 (09:34→22:01)
[2024-10-04] MEDS: ROCEPHIN 2000 MG IV ×2 (09:35→21:45)
[2024-10-04] MEDS: STERILE WATER FOR INJECTION 20 ML IV ×2 (09:35→21:45)
[2024-10-04 11:35] LABS: Glucose - Point of Care 198 mg/dl (70-99)
[2024-10-04] MEDS: NOVOLOG FLEXPEN-LOW RESISTANCE 1 UNITS SC (11:48)
[2024-10-04] MEDS: TYLENOL 650 MG PO ×3 (12:54→22:00)
[2024-10-04] MEDS: FLOMAX 0.8 MG PO (12:55)
[2024-10-04 15:51] LABS: Glucose - Point of Care 314 mg/dl (70-99)
[2024-10-04] MEDS: NOVOLOG FLEXPEN-LOW RESISTANCE 4 UNITS SC (16:03)
[2024-10-04] MEDS: NEURONTIN 200 MG PO ×2 (16:04→21:43)
[2024-10-04 21:38] LABS: Glucose - Point of Care 282 mg/dl (70-99)
[2024-10-04] MEDS: LANTUS 0.2 UNITS SC (21:46)
[2024-10-05] MEDS: AMPICILLIN 108 MG IV ×4 (05:12→23:56)
[2024-10-05 06:00] VITALS: BMI 29.2
[2024-10-05 07:00] VITALS: BP 197/76
[2024-10-05 08:27] LABS: Glucose - Point of Care 264 mg/dl (70-99)
[2024-10-05] MEDS: NOVOLOG FLEXPEN-LOW RESISTANCE 3 UNITS SC (08:53)
[2024-10-05] MEDS: NOVOLOG FLEXPEN 4 UNITS SC ×3 (08:53→17:17)
[2024-10-05] MEDS: PROGRAF 2 MG PO ×2 (08:54→21:30)
[2024-10-05] MEDS: LASIX 20 MG PO (08:55)
[2024-10-05] MEDS: PROTONIX 40 MG PO ×2 (08:55→21:26)
[2024-10-05] MEDS: PROCARDIA XL (EXTENDED RELEASE) 60 MG PO (08:55)
[2024-10-05] MEDS: MYFORTIC DELAYED REL. 720 MG PO ×2 (08:56→21:29)
[2024-10-05] MEDS: NEURONTIN 200 MG PO ×3 (08:56→21:28)
[2024-10-05] MEDS: LIPITOR 40 MG PO (08:56)
[2024-10-05] MEDS: PLAVIX 75 MG PO (08:56)
[2024-10-05] MEDS: LOW STRENGTH ASPIRIN 81 MG PO (08:56)
[2024-10-05] MEDS: FLOMAX 0.8 MG PO (08:57)
[2024-10-05] MEDS: COREG 6.25 MG PO ×2 (08:57→21:31)
[2024-10-05] MEDS: DELTASONE 5 MG PO (08:57)
[2024-10-05] MEDS: LAC HYDRIN, AM LACTIN LOTION 1 APPLIC TOPICAL ×2 (08:57→21:31)
[2024-10-05] MEDS: ROCEPHIN 2000 MG IV ×2 (08:58→21:32)
[2024-10-05] MEDS: STERILE WATER FOR INJECTION 20 ML IV ×2 (08:58→21:32)
--- NOTE | 2024-10-05 10:15 | W.PN.HOSP.TC ---
Today's Communication/Plan
-
see A/P
Assessment / Plan
Assessment / Plan
Assessment/Plan
# Sepsis POA 2/ Enterococcal bacteremia and UTI
# Immunocompromised state with history of renal transplant
Blood culture 2 sets grew Enterococcus faecalis, negative since 09/28
Urine culture also grew enterococci faecalis
Initial CT abdomen pelvis did not show any obstruction/pyelonephritis/abscess
Zosyn was changed to Rocephin and Ampicillin, with plan to transition to po amoxicillin 1000 mg po q8h through 10/10/24 per ID
TTE showed no clear vegetation
# Acute urinary retention
Cont Flomax
Cont straight cath PRN for now
Uro CS per pt request
# Shortness of Breath with Acute Hypoxic Respiratory Insufficiency, likely new-onset HFpEF
# SEVERE ACUTE INTERSTITIAL and ALVEOLAR CARDIOGENIC PULMONARY EDEMA on CT Chest
# Small bilateral pleural effusions with adjacent compressive bibasilar subsegmental atelectasis.
Echo showed normal LVEF, normal right ventricle, normal pericardium
proBNP 8240
s/p Lasix IV 20 mg x2 doses with improvement in symptoms
IV Lasix 20 mg daily to PO 20 mg daily
# Acute blood loss anemia
R/o GI bleed
s/p total of 3 u prbc's this hospitalization
maintain on PPI
GI EGD on 09/28/24: clean based gastric ulcer. Needs ppi po bid for 8 weeks. GI office will call him for f/u as he needs a repeat in 8 weeks
# SHERRY on CKD III
# Metabolic acidosis, resoled
# h/o Renal Transplant
SCr peaked at 1.8, back to baseline at 1.1
Maintained on tacrolimus/prednisone/mycophenolate. Tacrolimus level 08/19 was 5.8, repeat is 5.2 (from 09/27/24)
Nephrology following.
# Hypokalemia, replaced and resolved
# ASCVD / PAD, Stable.
# Moderate diffuse subcutaneous edema in both lower legs.
# Recent admission for Right foot transmetatarsal amputation for Right foot dried forefoot gangrene and bilateral subcutaneous debridement
Wounds / surgical sites are well appearing without evidence of active infection, erythema, discharge, etc.
Wound Care eval for continued local care.
# Neuropathic (shooting) pain RLE from recent surgery
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
Cont Tylenol, added tramadol 25 mg PRN
# Benign Hypertension
# HTN urgency
Cont home Coreg 6.25 BID
Nifedipine increased to 60 mg daily
prn Hydralazine
# IDDM, Stable.
Cont Aspart 4 units AC,
Adjusted Lantus back to 20 units HS
Follow glucose and cover with SSI as needed.
# Anxiety, Stable.
Continue clonazepam PRN.
# Hyponatremia
monitor
DVT Prophylaxis: SCDs only.
Code Status: Full Code
Dispo: SNF per PMR eval
DW RN
Anticipated Discharge: 24 - 48 hours
Subjective/Interval History
-
Date of Service: October 05, 2024
Objective Data
-
Labs:
Laboratory Results
10/05/24
09:40
WBC Pending
Hgb Pending
Hct Pending
Plt Count Pending
Sodium Pending
Potassium Pending
Chloride Pending
Carbon Dioxide Pending
BUN Pending
Creatinine Pending
Glucose Pending
Calcium Pending
Vital Signs:
Vital Signs
Temp Pulse Resp BP Pulse Ox
37.0 C 60 18 197/76 94
10/05/24 07:00 10/05/24 07:00 10/05/24 07:00 10/05/24 07:00 10/05/24 07:00
I&O
10/04/24 10/05/24 10/06/24
06:59 06:59 06:59
Intake Total 480 / 480 480 / 480
Output Total 1999 700 / 700
Balance -1520 / -1520 -220 / -220
Review of Systems
-
History Source: Patient
All other systems: Reviewed and negative
Physical Exam
-
General: Well Developed, Well Nourished, No Apparent Distress, Comfortable and Conversant
HEENT: Normocephalic and Atraumatic
Respiratory: Clear to Auscultation and Non Labored Respirations; Negative Accessory Resp Muscle Use
Cardiac: Regular Rhythm and S1/S2
GI: Soft, Nontender and Nondistended
Skin: Other (R foot in wound dressing )
Neuro: Awake, Alert and Oriented
Psych: Calm and Intact Judgement/Insight
Data Reviewed
-
Labs: Labs Reviewed by me
[2024-10-05 10:23] LABS: Hematocrit 30.7 % (39.0-52.0); Hemoglobin 9.7 g/dL (13.0-18.0); Mean Corp Hgb Conc. 31.6 g/dL (33.0-37.0); Mean Corpuscular Hgb 27.9 pg (27.0-31.0); Mean Corpuscular Volume 88.2 fL (80.0-94.0); Mean Platelet Volume 10.4 fL (7.4-10.4); Platelet Count 307 10^3/uL (130-400); Red Blood Cell Count 3.48 10^6/uL (4.70-6.10); Red Cell Dist. Width 15.7 % (11.5-14.5); White Blood Cell Count 9.8 10^3/uL (4.8-10.8)
[2024-10-05] MEDS: TYLENOL 650 MG PO ×2 (11:12→21:25)
[2024-10-05 11:13] LABS: Blood Urea Nitrogen 16 mg/dl (9-20); Calcium 8.6 mg/dl (8.4-10.2); Carbon Dioxide 27 mmol/L (22-30); Chloride 99 mmol/L (98-107); Estimated Creatinine Clearance 65 ml/min; Glucose 254 mg/dl (70-99); Magnesium 1.7 mg/dl (1.6-2.3); Potassium 4.5 mmol/L (3.5-5.1); Sodium 135 mmol/L (135-145); eGFR > 60.00
[2024-10-05] MEDS: ULTRAM 25 MG PO ×2 (11:13→21:26)
[2024-10-05 11:30] LABS: Glucose - Point of Care 250 mg/dl (70-99)
[2024-10-05 13:01] VITALS: BP 189/75
[2024-10-05] MEDS: APRESOLINE 5 MG IV (13:02)
[2024-10-05] MEDS: NOVOLOG FLEXPEN-LOW RESISTANCE 2 UNITS SC (13:05)
--- NOTE | 2024-10-05 13:35 | W.PN.ID1 ---
Date of Service
Date of Service: October 05, 2024
Today's Communication
Continue antibiotics
Assessment / Plan
# Immunocompromised host: renal transplant on mycophenolate, tacrolimus
# Uncomplicated Enterococcus faecalis bacteremia
# Enterococcus complicated UTI
# s/p Severe sepsis.
Fever resolved.
Leukocytosis resolved
# Upper GIB with blood loss anemia
09/28 EGD: gastric nonbleeding ulcer
# Acute pulm edema
# Toxic metabolic encephalopathy resolved
- Repeat blood cx's neg to date
-TTE no gross vege
--> Continue Ampicillin 6g IV q6h + ceftriaxone 2gIV q12 (d#9) while inpatient.
--> At time of discharge, transition to po amoxicillin 1000mg po q8h, to continue through 10/10/24
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
Diabetes with neuropathy and nephropathy
ESRD; previously on HD
Living related donor renal transplant 10/31/2022 at [place]
CKD3
HTN
Dyslipidemia
CAD
CVA
PAD s/p RLE endovascular intervention (08/18/24)
YASH on CPAP
Anxiety/depression
Macular degeneration
Narcolepsy
ADHD
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
Appendectomy
Right AV fistula
TURP
Knee arthroscopic surgery
Chief Complaint
-: UTI and Bacteremia
Subjective / Review of Systems
Review of Systems: No Fever and No Chills
Vital Signs / Physical Exam
Vital Signs
Vital Signs
Temp Pulse Resp BP Pulse Ox
98.6 F 60 18 189/75 94
10/05/24 07:00 10/05/24 07:00 10/05/24 07:00 10/05/24 13:02 10/05/24 07:00
Physical Exam
Constitutional: No Acute Distress and Comfortable
Eyes: No Conjunctival Hemorrhage and Sclera Anicteric
Cardiovascular: Regular Rate and S1/S2
Pulmonary: Other (decreased BS at bases)
Gastrointestinal: Soft, Non Tender and Non Distended
Genito-Urinary: Clear Urine and Other (Transplant kidney without pain)
Extremities: Edema (BLE)
Wound: Other (Right foot TMA site dressing intact without strikethrough.)
Neurological: AO x 3
Psychological: Calm
Objective Data
Lab Data
Lab Results
10/05/24 09:40
10/05/24 09:40
Estimated Creat Clear 65 ml/min 10/05/24 09:40
Lactic Acid 1.5 mmol/L (0.7-2.0) 09/25/24 21:24
Total Bilirubin 0.6 mg/dl (0.2-1.3) 09/25/24 21:24
AST 16 U/L (17-59) L 09/25/24 21:24
ALT 16 U/L (0-50) 09/25/24 21:24
Alkaline Phosphatase 80 U/L (38-126) 09/25/24 21:24
Most recent labs reviewed.
Micro Results:
09/28/24 12:37 Blood Culture - Final
Blood/Venous No Growth - Final Report
09/28/24 06:58 Blood Culture - Final
Blood/Venous No Growth - Final Report
09/25/24 21:55 Blood Culture - Final
Blood/Venous Enterococcus faecalis
Gram Stain - Final
09/25/24 21:55 Blood Culture - Final
Blood/Venous Enterococcus faecalis
Gram Stain - Final
09/29/24 16:07 Salmonella/Shigella Culture - Final
Feces/Stool No Salmonella, Shigella, Aeromonas or Plesiomonas species
isolated.
Campylobacter Culture - Final
No Campylobacter species isolated.
Shiga Toxin Test - Final
No E. coli Shiga Toxin 1 or 2 detected.
Stool Leukocytes - Final
09/29/24 16:07 C. difficile GDH Antigen & Toxins - Final
Feces/Stool Negative for toxigenic C.difficile
09/26/24 01:03 Urine Culture - Final
Urine Enterococcus faecalis
09/25/24 21:24 Influenza Types A & B (MELVIN) - Final
Nasal Swab Negative for Influenza A & B, NAAT
Negative results must be combined with clinical observations
and patient history.
Nucleic Acid Amplification test (NAAT)performed on the
[employer] platform.
09/26/24 CT a/p: Atrophic [place] kidneys with right lower quadrant transplant kidney. There is no evidence of renal calculus. There is mild circumferential urinary bladder wall thickening which can be seen with seen with cystitis. Recommend
correlation with urinalysis. Mild colonic stool burden without evidence of bowel obstruction.
09/25/24 CXR: No acute cardiopulmonary process.
09/28/24 CT a/p: SEVERE ACUTE INTERSTITIAL and ALVEOLAR CARDIOGENIC PULMONARY EDEMA. Right lower quadrant renal transplant in place. Mild duodenal wall thickening (possibly peptic ulcer disease). Mild wall thickening in the ascending and transverse
colon suggesting a mild colitis.
--- NOTE | 2024-10-05 13:48 | W.PN.NEPH.PH ---
Today's Communication / Plan
-
Start lisinopril with elevated blood pressures not responding to nifedipine increase
Assessment/Plan
-
Assessment:
Sepsis
enterococcal bacteremia and UTI
SHERRY on CKD III-baseline cr 1.3-1.5
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
Heme Positive Stools
Acute Blood Loss Anemia
b/l LE Wounds
ASCVD / PAD
Benign Hypertension
Anxiety
h/o syncope from severe orthostatic hypotension
-DM2-with microvascular complications
Anxiety, Insomnia
BPH
Plan:
Creatinine 1.1 better than previous baseline
follow BMP
lasix 20mg po daily
maintain FR
cont IS Tac, MMF and Pred, Tac level 5.2 on admit
PPI per GI
flomax
Blood pressures remain high will start on URSULA inhibitor
-
-
Date of Service: October 05, 2024
CC / HPI / ROS
-
Chief Complaint:
SHERRY with CKD h/o KTP
History of Present Illness:
SHERRY/Cr stable at 1.1
[place] out, but high PVR still
abx for enterococcus sepsis
Review of Systems:
no n/v
no CP
no sob on RA
nonoliguric with lasix
Labs
-
Labs:
WBC 9.8 10^3/uL (4.8-10.8) 10/05/24 09:40
RBC 3.48 10^6/uL (4.70-6.10) L 10/05/24 09:40
Hgb 9.7 g/dL (13.0-18.0) L 10/05/24 09:40
Hct 30.7 % (39.0-52.0) L 10/05/24 09:40
Plt Count 307 10^3/uL (130-400) 10/05/24 09:40
Sodium 135 mmol/L (135-145) 10/05/24 09:40
Potassium 4.5 mmol/L (3.5-5.1) 10/05/24 09:40
Chloride 99 mmol/L (98-107) 10/05/24 09:40
Carbon Dioxide 27 mmol/L (22-30) 10/05/24 09:40
BUN 16 mg/dl (9-20) 10/05/24 09:40
Creatinine 1.1 mg/dL (0.7-1.3) 10/05/24 09:40
eGFR > 60.00 10/05/24 09:40
Glucose 254 mg/dl (70-99) H 10/05/24 09:40
Calcium 8.6 mg/dl (8.4-10.2) 10/05/24 09:40
Phosphorus 3.5 mg/dl (2.5-4.5) 09/26/24 05:35
Fzy-B-Tarvvummmho Pept 8240 pg/ml 09/28/24 15:50
Albumin 2.7 g/dl (3.5-5.0) L 10/01/24 05:42
Physical Exam
-
Vital Signs:
Vital Signs
Temp Pulse Resp BP Pulse Ox
98.6 F 60 18 189/75 94
10/05/24 07:00 10/05/24 07:00 10/05/24 07:00 10/05/24 13:02 10/05/24 07:00
Cardiovascular:: Regular rate and rhythm
Respiratory:: Bilateral: Coarse
Lung Excursion:: Normal
Abdomen:: Nontender and Soft
Bowel Sounds:: Normal
Extremity Edema:: +1: Bilateral:
[2024-10-05 15:00] VITALS: BP 111/46
[2024-10-05 15:04] VITALS: BP 126/51; PULSE 65; O2SAT 97
[2024-10-05] MEDS: ZESTRIL 10 MG PO (15:25)
[2024-10-05 16:49] LABS: Glucose - Point of Care 144 mg/dl (70-99)
[2024-10-05] MEDS: NOVOLOG FLEXPEN-LOW RESISTANCE SC (17:18)
--- NOTE | 2024-10-05 17:58 | W.PN.URO.CBU ---
Today's Communication / Plan
-
cic if pvr over 400
Assessment / Plan
-
cic oif pvr over 400 cc
Diagnosis
-
Date of Service: October 05, 2024
-
Patient Diagnosis:bph h/o turp 2 now intermitent rettnion pos t diuresis getting better
Post Op Day:
Subjective
-
fees almost voidng baseline now
Objective
-
Vital Signs
Temp Pulse Resp BP Pulse Ox
97.7 F 58 18 111/46 94
10/05/24 15:00 10/05/24 15:00 10/05/24 15:00 10/05/24 15:00 10/05/24 15:00
Intake and Output
10/04/24 10/05/24 10/06/24
06:59 06:59 06:59
Intake Total 480 / 480 780 / 780
Output Total 1999 / 2000 1740 / 1740
Balance -1520 / -1520 -960 / -960
Intake:
Oral fluids 480 / 480 780 / 780
Output:
Urine, Voided 1500 / 1500 1740 / 1740
Straight cath output 500 / 500
Other:
Number of unmeasured liquid
stools
Rectum 2
Laboratory Results
10/05/24 09:40
10/05/24 09:40
Review of Systems
-
: No Symptoms
Physical Exam
-
General - well developed, well nourished, no acute distress
Chest - clear bilaterally
Abdomen - soft, non-tender, positive bowel sounds, no CVAT, no incisional pain or distention
Genitalia - normal
Rectal - normal
Skin - warm & dry with no rash
Neuro - AOx3, no motor deficits
Extremities - no clubbing, no cyanosis, no edema
Incision - clean, dry
Dressing - clean, dry, intact
Care Review
Data Reviewed
Discussed with: Hospitalist and Nursing
[2024-10-05 21:39] LABS: Glucose - Point of Care 244 mg/dl (70-99)
[2024-10-05] MEDS: LANTUS 0.2 UNITS SC (21:39)
[2024-10-05 23:20] VITALS: BP 140/79
[2024-10-06] MEDS: AMPICILLIN 108 MG IV ×3 (05:00→17:12)
[2024-10-06 07:00] VITALS: BP 188/72
[2024-10-06 07:35] LABS: Hematocrit 32.8 % (39.0-52.0); Hemoglobin 10.3 g/dL (13.0-18.0); Mean Corp Hgb Conc. 31.4 g/dL (33.0-37.0); Mean Corpuscular Hgb 27.7 pg (27.0-31.0); Mean Corpuscular Volume 88.2 fL (80.0-94.0); Mean Platelet Volume 10.4 fL (7.4-10.4); Platelet Count 334 10^3/uL (130-400); Red Blood Cell Count 3.72 10^6/uL (4.70-6.10); Red Cell Dist. Width 15.3 % (11.5-14.5); White Blood Cell Count 10.3 10^3/uL (4.8-10.8)
[2024-10-06 07:58] LABS: Blood Urea Nitrogen 18 mg/dl (9-20); Calcium 9.2 mg/dl (8.4-10.2); Carbon Dioxide 28 mmol/L (22-30); Chloride 98 mmol/L (98-107); Estimated Creatinine Clearance 55 ml/min; Glucose 209 mg/dl (70-99); Magnesium 1.8 mg/dl (1.6-2.3); Potassium 4.5 mmol/L (3.5-5.1); Sodium 136 mmol/L (135-145); eGFR 58.37
[2024-10-06 08:06] LABS: Glucose - Point of Care 254 mg/dl (70-99)
[2024-10-06] MEDS: NOVOLOG FLEXPEN 4 UNITS SC (09:01)
[2024-10-06] MEDS: NOVOLOG FLEXPEN-LOW RESISTANCE 3 UNITS SC (09:02)
[2024-10-06] MEDS: MYFORTIC DELAYED REL. 720 MG PO ×2 (09:03→21:12)
[2024-10-06] MEDS: PROCARDIA XL (EXTENDED RELEASE) 60 MG PO (09:04)
[2024-10-06] MEDS: PROGRAF 2 MG PO ×2 (09:04→21:12)
[2024-10-06] MEDS: PLAVIX 75 MG PO (09:05)
[2024-10-06] MEDS: FLOMAX 0.8 MG PO (09:05)
[2024-10-06] MEDS: LASIX 20 MG PO (09:05)
[2024-10-06] MEDS: DELTASONE 5 MG PO (09:06)
[2024-10-06] MEDS: LOW STRENGTH ASPIRIN 81 MG PO (09:06)
[2024-10-06] MEDS: LIPITOR 40 MG PO (09:06)
[2024-10-06] MEDS: COREG 6.25 MG PO ×2 (09:06→21:14)
[2024-10-06] MEDS: NEURONTIN 200 MG PO ×3 (09:06→21:13)
[2024-10-06] MEDS: ROCEPHIN 2000 MG IV ×2 (09:07→21:13)
[2024-10-06] MEDS: PROTONIX 40 MG PO ×2 (09:07→21:13)
[2024-10-06] MEDS: ZESTRIL 10 MG PO (09:08)
[2024-10-06] MEDS: LAC HYDRIN, AM LACTIN LOTION 1 APPLIC TOPICAL ×2 (09:08→21:14)
[2024-10-06] MEDS: STERILE WATER FOR INJECTION 20 ML IV ×2 (09:08→21:14)
--- NOTE | 2024-10-06 09:14 | W.PN.URO.CBU ---
Today's Communication / Plan
-
stop bladder scan unless pt comoplains of distenion bladder pain, etc
Assessment / Plan
-
voiding normally pvr abiut 300 or less no more cic
Diagnosis
-
Date of Service: October 06, 2024
-
Patient Diagnosis:
Post Op Day:
Patient Diagnosis:bph h/o turp 2 now intermitent rettnion pos t diuresis getting better
Post Op Day:
Subjective
-
voiding is baseline
Objective
-
Vital Signs
Temp Pulse Resp BP Pulse Ox
97.9 F 63 18 188/72 95
10/06/24 07:00 10/06/24 07:00 10/06/24 07:00 10/06/24 07:00 10/06/24 07:00
Intake and Output
10/05/24 10/06/24 10/07/24
06:59 06:59 06:59
Intake Total 780 / 780
Output Total 1740 / 1740
Balance -960 / -960
Intake:
Oral fluids 780 / 780
Output:
Urine, Voided 1740 / 1740
Other:
Number of unmeasured liquid
stools
Rectum 2
Laboratory Results
10/06/24 06:48
10/06/24 06:48
Review of Systems
-
: No Symptoms
Physical Exam
-
General - well developed, well nourished, no acute distress
Chest - clear bilaterally
Abdomen - soft, non-tender, positive bowel sounds, no CVAT, no incisional pain or distention
Genitalia - normal
Rectal - normal
Skin - warm & dry with no rash
Neuro - AOx3, no motor deficits
Extremities - no clubbing, no cyanosis, no edema
Incision - clean, dry
Dressing - clean, dry, intact
--- NOTE | 2024-10-06 10:22 | PTCARENOTE ---
10 am voided 150 Bladder scan 488 . Hospitalist notified, do not straight cath - Recheck at 1130 . Order noted.
--- NOTE | 2024-10-06 10:22 | W.PN.HOSP.TC ---
Today's Communication/Plan
-
see A/P
Assessment / Plan
Assessment / Plan
Assessment/Plan
# Sepsis POA 2/ Enterococcal bacteremia and UTI
# Immunocompromised state with history of renal transplant
Blood culture 2 sets grew Enterococcus faecalis, negative since 09/28
Urine culture also grew enterococci faecalis
Initial CT abdomen pelvis did not show any obstruction/pyelonephritis/abscess
Zosyn was changed to Rocephin and Ampicillin, with plan to transition to po amoxicillin 1000 mg po q8h through 10/10/24 per ID
TTE showed no clear vegetation
# Acute urinary retention
Cont Flomax
No need to cont straight cath per Uro
Uro on board per pt request
# Shortness of Breath with Acute Hypoxic Respiratory Insufficiency, likely new-onset HFpEF
# SEVERE ACUTE INTERSTITIAL and ALVEOLAR CARDIOGENIC PULMONARY EDEMA on CT Chest
# Small bilateral pleural effusions with adjacent compressive bibasilar subsegmental atelectasis.
Echo showed normal LVEF, normal right ventricle, normal pericardium
proBNP 8240
s/p Lasix IV 20 mg x2 doses with improvement in symptoms
IV Lasix 20 mg daily to PO 20 mg daily
# Acute blood loss anemia
R/o GI bleed
s/p total of 3 u prbc's this hospitalization
maintain on PPI
GI EGD on 09/28/24: clean based gastric ulcer. Needs ppi po bid for 8 weeks. GI office will call him for f/u as he needs a repeat in 8 weeks
# SHERRY on CKD III
# Metabolic acidosis, resoled
# h/o Renal Transplant
SCr peaked at 1.8, back to baseline at 1.3 today
Maintained on tacrolimus/prednisone/mycophenolate. Tacrolimus level 08/19 was 5.8, repeat is 5.2 (from 09/27/24)
Nephrology following.
# Hypokalemia, replaced and resolved
# ASCVD / PAD, Stable.
# Moderate diffuse subcutaneous edema in both lower legs.
# Recent admission for Right foot transmetatarsal amputation for Right foot dried forefoot gangrene and bilateral subcutaneous debridement
Wounds / surgical sites are well appearing without evidence of active infection, erythema, discharge, etc.
Wound Care eval for continued local care.
# Neuropathic (shooting) pain RLE from recent surgery
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
Cont Tylenol, added tramadol 25 mg PRN
# Benign Hypertension
# HTN urgency
Cont home Coreg 6.25 BID
Nifedipine increased to 60 mg daily
Lisinopril 10 mg added
prn Hydralazine
# IDDM, Stable.
Cont Aspart, adjust to 10 units AC,
Adjusted Lantus back to 20 units HS
Follow glucose and cover with SSI as needed.
# Anxiety, Stable.
Continue clonazepam PRN.
# Hyponatremia
monitor
DVT Prophylaxis: SCDs only.
Code Status: Full Code
Dispo: SNF per PMR eval
DW RN
DW at bedside
Anticipated Discharge: Within 24 hours
Subjective/Interval History
-
Date of Service: October 06, 2024
Objective Data
-
Labs:
Laboratory Results
10/06/24
06:48
WBC 10.3
Hgb 10.3 L
Hct 32.8 L
Plt Count 334
Sodium 136
Potassium 4.5
Chloride 98
Carbon Dioxide 28
BUN 18
Creatinine 1.3
Glucose 209 H
Calcium 9.2
Vital Signs:
Vital Signs
Temp Pulse Resp BP Pulse Ox
36.6 C 63 18 188/72 95
10/06/24 07:00 10/06/24 07:00 10/06/24 07:00 10/06/24 07:00 10/06/24 07:00
I&O
10/05/24 10/06/24 10/07/24
06:59 06:59 06:59
Intake Total 780 / 780
Output Total 1740 / 1740
Balance -960 / -960
Review of Systems
-
History Source: Patient
All other systems: Reviewed and negative
Physical Exam
-
General: Well Developed, Well Nourished, No Apparent Distress, Comfortable and Conversant
HEENT: Normocephalic and Atraumatic
Respiratory: Clear to Auscultation and Non Labored Respirations; Negative Accessory Resp Muscle Use
Cardiac: Regular Rhythm and S1/S2
GI: Soft, Nontender and Nondistended
Skin: Other (R foot in wound dressing )
Neuro: Awake, Alert and Oriented
Psych: Calm and Intact Judgement/Insight
Data Reviewed
-
Labs: Labs Reviewed by me
[2024-10-06 11:27] LABS: Glucose - Point of Care 122 mg/dl (70-99)
[2024-10-06 11:50] VITALS: BP 177/86
[2024-10-06] MEDS: NOVOLOG FLEXPEN 10 UNITS SC ×2 (12:36→17:11)
[2024-10-06] MEDS: NOVOLOG FLEXPEN-LOW RESISTANCE SC ×2 (12:36→17:12)
--- NOTE | 2024-10-06 13:07 | PTCARENOTE ---
Spoke with Dr. Nance, bladder scan discontinued as per . Pt requested wound consult for right foot and left foot wounds. Pt in no distress at present.
--- NOTE | 2024-10-06 14:40 | W.PN.NEPH.PH ---
Today's Communication / Plan
-
Increase lisinopril 10 mg with 5 mg dose again today
Assessment/Plan
-
Assessment:
Sepsis
enterococcal bacteremia and UTI
SHERRY on CKD III-baseline cr 1.3-1.5
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
Heme Positive Stools
Acute Blood Loss Anemia
b/l LE Wounds
ASCVD / PAD
Benign Hypertension
Anxiety
h/o syncope from severe orthostatic hypotension
-DM2-with microvascular complications
Anxiety, Insomnia
BPH
Plan:
Creatinine 1.1 better than previous baseline
follow BMP
lasix 20mg po daily
maintain FR
cont IS Tac, MMF and Pred, Tac level 5.2 on admit
PPI per GI
flomax
Minimal response to lisinopril 5 mg started yesterday.
I will increase to 10 mg with a 5 mg dose now.
I would discontinue hydralazine as needed so we can see the effects of lisinopril appropriately.
Monitor creatinine as it did go up slightly to 1.3 today
-
-
Date of Service: October 06, 2024
CC / HPI / ROS
-
Chief Complaint:
SHERRY with CKD h/o KTP
History of Present Illness:
SHERRY/Cr stable at 1.1
[place] out, but high PVR still
abx for enterococcus sepsis
Review of Systems:
no n/v
no CP
no sob on RA
nonoliguric with lasix
Labs
-
Labs:
WBC 10.3 10^3/uL (4.8-10.8) 10/06/24 06:48
RBC 3.72 10^6/uL (4.70-6.10) L 10/06/24 06:48
Hgb 10.3 g/dL (13.0-18.0) L 10/06/24 06:48
Hct 32.8 % (39.0-52.0) L 10/06/24 06:48
Plt Count 334 10^3/uL (130-400) 10/06/24 06:48
Sodium 136 mmol/L (135-145) 10/06/24 06:48
Potassium 4.5 mmol/L (3.5-5.1) 10/06/24 06:48
Chloride 98 mmol/L (98-107) 10/06/24 06:48
Carbon Dioxide 28 mmol/L (22-30) 10/06/24 06:48
BUN 18 mg/dl (9-20) 10/06/24 06:48
Creatinine 1.3 mg/dL (0.7-1.3) 10/06/24 06:48
eGFR 58.37 10/06/24 06:48
Glucose 209 mg/dl (70-99) H 10/06/24 06:48
Calcium 9.2 mg/dl (8.4-10.2) 10/06/24 06:48
Phosphorus 3.5 mg/dl (2.5-4.5) 09/26/24 05:35
Vly-S-Zjzsgbsbnjt Pept 8240 pg/ml 09/28/24 15:50
Albumin 2.7 g/dl (3.5-5.0) L 10/01/24 05:42
Physical Exam
-
Vital Signs:
Vital Signs
Temp Pulse Resp BP Pulse Ox
97.7 F 61 16 177/86 95
10/06/24 11:50 10/06/24 11:50 10/06/24 11:50 10/06/24 11:50 10/06/24 11:54
Cardiovascular:: Regular rate and rhythm
Respiratory:: Bilateral: Coarse
Lung Excursion:: Normal
Abdomen:: Nontender and Soft
Bowel Sounds:: Normal
Extremity Edema:: +1: Bilateral:
[2024-10-06 15:00] VITALS: BP 109/48
--- NOTE | 2024-10-06 15:02 | WOUNDNOTE ---
ARABELLA RN NOTE: Followed up as requested by Dr. Nance. R TMA site with dry intact scabs along incision line. No S&S of infection, dressing changed. L plantar foot scab fell off with cleaning revealing nearly healed skin, scant drainage, silicone foam
changed. Heels are intact, skin very dry on feet and lower legs. Applied Vaseline to feet and legs, avoiding surgical sites. Patient has Darco shoe at bedside, pillow placed under calves. Patient able to turn self to sides, removed sacral silicone
foam, skin underneath intact. ON [facility] bed. Plan is for SNF per note. Teaching done with patient and at bedside regarding wound care and patient to follow up with surgeon post discharge.
--- NOTE | 2024-10-06 16:04 | W.PN.ID1 ---
Date of Service
Date of Service: October 06, 2024
Today's Communication
Continue antibiotics. See below�
Assessment / Plan
# Immunocompromised host: renal transplant on mycophenolate, tacrolimus
# Uncomplicated Enterococcus faecalis bacteremia
# Enterococcus complicated UTI
# s/p Severe sepsis.
Fever resolved.
Leukocytosis resolved
# Upper GIB with blood loss anemia
09/28 EGD: gastric nonbleeding ulcer
# Acute pulm edema
# Toxic metabolic encephalopathy resolved
- Repeat blood cx's neg to date
- TTE no gross veg
--> Continue Ampicillin 6g IV q6h + ceftriaxone 2gIV q12 (d#10) while inpatient.
--> At time of discharge, transition to po amoxicillin 1000mg po q8h, to continue through 10/10/24
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
Diabetes with neuropathy and nephropathy
ESRD; previously on HD
Living related donor renal transplant 10/31/2022 at [place]
CKD3
HTN
Dyslipidemia
CAD
CVA
PAD s/p RLE endovascular intervention (08/18/24)
YASH on CPAP
Anxiety/depression
Macular degeneration
Narcolepsy
ADHD
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
Appendectomy
Right AV fistula
TURP
Knee arthroscopic surgery
Chief Complaint
-: UTI and Bacteremia
Subjective / Review of Systems
Review of Systems: No Fever and No Chills
Vital Signs / Physical Exam
Vital Signs
Vital Signs
Temp Pulse Resp BP Pulse Ox
97.3 F 64 18 109/48 96
10/06/24 15:00 10/06/24 15:00 10/06/24 15:00 10/06/24 15:00 10/06/24 15:00
Physical Exam
Constitutional: No Acute Distress and Comfortable
Cardiovascular: Regular Rate and S1/S2; Negative S3/S4
Gastrointestinal: Soft, Non Tender and Non Distended
Extremities: Edema (BLE)
Wound: Other (Right foot TMA site dressing intact without strikethrough.)
Neurological: AO x 3
Psychological: Calm
Objective Data
Lab Data
Lab Results
10/06/24 06:48
10/06/24 06:48
Estimated Creat Clear 55 ml/min 10/06/24 06:48
Lactic Acid 1.5 mmol/L (0.7-2.0) 09/25/24 21:24
Total Bilirubin 0.6 mg/dl (0.2-1.3) 09/25/24 21:24
AST 16 U/L (17-59) L 09/25/24 21:24
ALT 16 U/L (0-50) 09/25/24 21:24
Alkaline Phosphatase 80 U/L (38-126) 09/25/24 21:24
Most recent labs reviewed.
Micro Results:
09/28/24 12:37 Blood Culture - Final
Blood/Venous No Growth - Final Report
09/28/24 06:58 Blood Culture - Final
Blood/Venous No Growth - Final Report
09/25/24 21:55 Blood Culture - Final
Blood/Venous Enterococcus faecalis
Gram Stain - Final
09/25/24 21:55 Blood Culture - Final
Blood/Venous Enterococcus faecalis
Gram Stain - Final
09/29/24 16:07 Salmonella/Shigella Culture - Final
Feces/Stool No Salmonella, Shigella, Aeromonas or Plesiomonas species
isolated.
Campylobacter Culture - Final
No Campylobacter species isolated.
Shiga Toxin Test - Final
No E. coli Shiga Toxin 1 or 2 detected.
Stool Leukocytes - Final
09/29/24 16:07 C. difficile GDH Antigen & Toxins - Final
Feces/Stool Negative for toxigenic C.difficile
09/26/24 01:03 Urine Culture - Final
Urine Enterococcus faecalis
09/25/24 21:24 Influenza Types A & B (MELVIN) - Final
Nasal Swab Negative for Influenza A & B, NAAT
Negative results must be combined with clinical observations
and patient history.
Nucleic Acid Amplification test (NAAT)performed on the
[employer] platform.
09/26/24 CT a/p: Atrophic [place] kidneys with right lower quadrant transplant kidney. There is no evidence of renal calculus. There is mild circumferential urinary bladder wall thickening which can be seen with seen with cystitis. Recommend
correlation with urinalysis. Mild colonic stool burden without evidence of bowel obstruction.
09/25/24 CXR: No acute cardiopulmonary process.
09/28/24 CT a/p: SEVERE ACUTE INTERSTITIAL and ALVEOLAR CARDIOGENIC PULMONARY EDEMA. Right lower quadrant renal transplant in place. Mild duodenal wall thickening (possibly peptic ulcer disease). Mild wall thickening in the ascending and transverse
colon suggesting a mild colitis.
[2024-10-06 17:08] LABS: Glucose - Point of Care 73 mg/dl (70-99)
[2024-10-06] MEDS: ULTRAM 25 MG PO (21:05)
[2024-10-06] MEDS: TYLENOL 650 MG PO (21:12)
[2024-10-06 21:18] LABS: Glucose - Point of Care 81 mg/dl (70-99)
[2024-10-06] MEDS: LANTUS 0.2 UNITS SC (21:18)
[2024-10-06 23:18] VITALS: BP 152/62
[2024-10-07] MEDS: AMPICILLIN 108 MG IV ×4 (00:05→17:33)
--- NOTE | 2024-10-07 04:37 | DOWNTIME ---
There was a [employer] Client Delinquency Prevention Social Worker Downtime on 10/07/2024 from 0100 to 10/08/2023 at 0420 . Downtime documentation of patient's care, including medication administrations, has been reconciled in the electronic record per guidelines. Refer to the
patient's paper chart under the miscellaneous tab to see printed paper medication records and downtime forms.
[2024-10-07 06:00] VITALS: BMI 29.9
[2024-10-07 07:00] VITALS: BP 192/73
[2024-10-07 08:09] LABS: Glucose - Point of Care 184 mg/dl (70-99)
[2024-10-07] MEDS: NOVOLOG FLEXPEN 10 UNITS SC ×3 (08:12→17:32)
[2024-10-07] MEDS: NOVOLOG FLEXPEN-LOW RESISTANCE 1 UNITS SC (08:13)
[2024-10-07] MEDS: PROGRAF 2 MG PO ×2 (08:13→20:31)
[2024-10-07] MEDS: MYFORTIC DELAYED REL. 720 MG PO ×2 (08:13→20:31)
[2024-10-07] MEDS: NEURONTIN 200 MG PO ×3 (08:13→22:13)
[2024-10-07] MEDS: PROCARDIA XL (EXTENDED RELEASE) 60 MG PO (08:14)
[2024-10-07] MEDS: LIPITOR 40 MG PO (08:14)
[2024-10-07] MEDS: LASIX 20 MG PO (08:14)
[2024-10-07] MEDS: PROTONIX 40 MG PO ×2 (08:14→20:32)
[2024-10-07] MEDS: PLAVIX 75 MG PO (08:14)
[2024-10-07] MEDS: LOW STRENGTH ASPIRIN 81 MG PO (08:14)
[2024-10-07] MEDS: FLOMAX 0.8 MG PO (08:14)
[2024-10-07] MEDS: COREG 6.25 MG PO ×2 (08:14→20:32)
[2024-10-07] MEDS: DELTASONE 5 MG PO (08:15)
[2024-10-07] MEDS: LAC HYDRIN, AM LACTIN LOTION 1 APPLIC TOPICAL (08:15)
[2024-10-07] MEDS: ZESTRIL 10 MG PO (08:15)
[2024-10-07 08:42] LABS: Blood Urea Nitrogen 17 mg/dl (9-20); Calcium 8.8 mg/dl (8.4-10.2); Carbon Dioxide 23 mmol/L (22-30); Chloride 105 mmol/L (98-107); Estimated Creatinine Clearance 55 ml/min; Glucose 168 mg/dl (70-99); Potassium 4.6 mmol/L (3.5-5.1); Sodium 140 mmol/L (135-145); eGFR 58.37
--- NOTE | 2024-10-07 09:44 | W.PN.HOSP.TC ---
Addendum entered and electronically signed by Lamar Nance MD 10/07/24 10:12:
Pt now c/o watery diarrhea that started yesterday.
Check C diff, Norovirus
Cancel discharge planning.
Original Note:
Today's Communication/Plan
-
see A/P
Assessment / Plan
Assessment / Plan
Assessment/Plan
# Sepsis POA 2/ Enterococcal bacteremia and UTI
# Immunocompromised state with history of renal transplant
Blood culture 2 sets grew Enterococcus faecalis, negative since 09/28
Urine culture also grew enterococci faecalis
Initial CT abdomen pelvis did not show any obstruction/pyelonephritis/abscess
Zosyn was changed to Rocephin and Ampicillin, with plan to transition to po amoxicillin 1000 mg po q8h through 10/10/24 per ID
TTE showed no clear vegetation
# Acute urinary retention
Cont Flomax
No need to cont straight cath per Uro.
Uro on board per pt request
# Shortness of Breath with Acute Hypoxic Respiratory Insufficiency, likely new-onset HFpEF
# SEVERE ACUTE INTERSTITIAL and ALVEOLAR CARDIOGENIC PULMONARY EDEMA on CT Chest
# Small bilateral pleural effusions with adjacent compressive bibasilar subsegmental atelectasis.
Echo showed normal LVEF, normal right ventricle, normal pericardium
proBNP 8240
s/p Lasix IV 20 mg x2 doses with improvement in symptoms
IV Lasix 20 mg daily to PO 20 mg daily
# Acute blood loss anemia
R/o GI bleed
s/p total of 3 u prbc's this hospitalization
maintain on PPI
GI EGD on 09/28/24: clean based gastric ulcer. Needs ppi po bid for 8 weeks. GI office will call him for f/u as he needs a repeat in 8 weeks
# SHERRY on CKD III
# Metabolic acidosis, resoled
# h/o Renal Transplant
SCr peaked at 1.8, back to baseline at 1.3 today
Maintained on tacrolimus/prednisone/mycophenolate. Tacrolimus level 08/19 was 5.8, repeat is 5.2 (from 09/27/24)
Nephrology following.
# Hypokalemia, replaced and resolved
# ASCVD / PAD, Stable.
# Moderate diffuse subcutaneous edema in both lower legs.
# Recent admission for Right foot transmetatarsal amputation for Right foot dried forefoot gangrene and bilateral subcutaneous debridement
Wounds / surgical sites are well appearing without evidence of active infection, erythema, discharge, etc.
Wound Care eval for continued local care.
# Neuropathic (shooting) pain RLE from recent surgery
Added gabapentin, adjusted to 200 mg TID (need med recc- pt states that he takes 300 mg BID HEAT CURER)
Cont Tylenol, added tramadol 25 mg PRN
# Benign Hypertension
# HTN urgency
Cont home Coreg 6.25 BID
Nifedipine increased to 60 mg daily
Lisinopril 10 mg added
prn Hydralazine
# IDDM, Stable.
Cont Aspart, adjust to 10 units AC,
Adjusted Lantus back to 20 units HS
Follow glucose and cover with SSI as needed.
# Anxiety, Stable.
Continue clonazepam PRN.
# Hyponatremia
monitor
DVT Prophylaxis: SCDs only.
Code Status: Full Code
Dispo: SNF per PMR eval
DW RN , CM
DW Renal
Anticipated Discharge: Today
Subjective/Interval History
-
Date of Service: October 07, 2024
Objective Data
-
Labs:
Laboratory Results
10/07/24
07:12
Sodium 140
Potassium 4.6
Chloride 105
Carbon Dioxide 23
BUN 17
Creatinine 1.3
Glucose 168 H
Calcium 8.8
Vital Signs:
Vital Signs
Temp Pulse Resp BP Pulse Ox
37.3 C 79 18 192/73 92
10/07/24 07:00 10/07/24 07:00 10/07/24 07:00 10/07/24 07:00 10/07/24 07:00
I&O
10/06/24 10/07/24 10/08/24
06:59 06:59 06:59
Intake Total 780 / 780 960 / 960 250 / 250
Output Total 1740 / 1740 650 / 650 700 / 700
Balance -960 / -960 310 / 310 -450 / -450
Review of Systems
-
History Source: Patient
All other systems: Reviewed and negative
Physical Exam
-
General: Well Developed, Well Nourished, No Apparent Distress, Comfortable and Conversant
HEENT: Normocephalic and Atraumatic
Respiratory: Clear to Auscultation and Non Labored Respirations; Negative Accessory Resp Muscle Use
Cardiac: Regular Rhythm and S1/S2
GI: Soft, Nontender and Nondistended
Skin: Other (R foot in wound dressing )
Neuro: Awake, Alert and Oriented
Psych: Calm and Intact Judgement/Insight
Data Reviewed
-
Labs: Labs Reviewed by me
[2024-10-07] MEDS: STERILE WATER FOR INJECTION 20 ML IV ×2 (10:08→22:14)
[2024-10-07] MEDS: ROCEPHIN 2000 MG IV ×2 (10:08→22:14)
--- NOTE | 2024-10-07 10:33 | W.PN.NEPH.PH ---
Today's Communication / Plan
-
Increase nifedipine
Assessment/Plan
-
Assessment:
Sepsis
enterococcal bacteremia and UTI
SHERRY on CKD III-baseline cr 1.3-1.5
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
Heme Positive Stools
Acute Blood Loss Anemia
b/l LE Wounds
ASCVD / PAD
Benign Hypertension
Anxiety
h/o syncope from severe orthostatic hypotension
-DM2-with microvascular complications
Anxiety, Insomnia
BPH
Plan:
Follow BMP
cont IS Tac, MMF and Pred, Tac level 5.2 on admit
Follow bladder scans, may require [place] catheter again
Add nifedipine 30 mg at night
Likely antibiotic associated diarrhea
-
-
Date of Service: October 07, 2024
CC / HPI / ROS
-
Chief Complaint:
SHERRY with CKD h/o KTP
History of Present Illness:
SHERRY/Cr stable at 1.3
BP high stable
[place] out, but high PVR still
abx for enterococcus sepsis
Review of Systems:
no n/v
Diarrhea beginning last night
no CP
no sob on RA
nonoliguric with lasix but feels that he is retaining
Labs
-
Labs:
WBC 10.3 10^3/uL (4.8-10.8) 10/06/24 06:48
RBC 3.72 10^6/uL (4.70-6.10) L 10/06/24 06:48
Hgb 10.3 g/dL (13.0-18.0) L 10/06/24 06:48
Hct 32.8 % (39.0-52.0) L 10/06/24 06:48
Plt Count 334 10^3/uL (130-400) 10/06/24 06:48
Sodium 140 mmol/L (135-145) 10/07/24 07:12
Potassium 4.6 mmol/L (3.5-5.1) 10/07/24 07:12
Chloride 105 mmol/L (98-107) 10/07/24 07:12
Carbon Dioxide 23 mmol/L (22-30) 10/07/24 07:12
BUN 17 mg/dl (9-20) 10/07/24 07:12
Creatinine 1.3 mg/dL (0.7-1.3) 10/07/24 07:12
eGFR 58.37 10/07/24 07:12
Glucose 168 mg/dl (70-99) H 10/07/24 07:12
Calcium 8.8 mg/dl (8.4-10.2) 10/07/24 07:12
Phosphorus 3.5 mg/dl (2.5-4.5) 09/26/24 05:35
Uog-A-Ynqteejegeb Pept 8240 pg/ml 09/28/24 15:50
Albumin 2.7 g/dl (3.5-5.0) L 10/01/24 05:42
Physical Exam
-
Vital Signs:
Vital Signs
Temp Pulse Resp BP Pulse Ox
99.2 F 79 18 192/73 92
10/07/24 07:00 10/07/24 07:00 10/07/24 07:00 10/07/24 07:00 10/07/24 07:00
Cardiovascular:: Regular rate and rhythm
Respiratory:: Bilateral: Coarse
Lung Excursion:: Normal
Abdomen:: Nontender and Soft
Bowel Sounds:: Normal
Extremity Edema:: None: Bilateral:
--- NOTE | 2024-10-07 10:41 | CM ---
CM reviewed chart, reviewed with Hospitalist and Nurse. Patient seen bedside, discussed per Chau, patient was denied to weight bearing status. Referrals made to [facility] and [facility], patient agreeable to rehab but feels he is not ready for
discharge today as he has been having diarrhea. CM will continue to follow for all discharge planing needs.
Plan; SNF when medically stable, referrals to [facility] and [facility], no auth required.
[2024-10-07 11:56] LABS: Glucose - Point of Care 131 mg/dl (70-99)
--- NOTE | 2024-10-07 12:33 | PTCARENOTE ---
Patient was able to void 400 in urinal , bladder scan 401. Was able to void 200 more in urinal. Has had 2 episodes of liquid stool so far today- sent specimens as ordered.
--- NOTE | 2024-10-07 12:48 | PTCARENOTE ---
Patient refused straight cath, hospitalist aware. We are only to bladder scan if pt requests and straight cath if he requests .
[2024-10-07] MEDS: NOVOLOG FLEXPEN-LOW RESISTANCE SC ×2 (12:57→17:32)
--- NOTE | 2024-10-07 13:42 | W.PN.URO.CBU ---
Today's Communication / Plan
-
no motre scans of bladder unl;ess pt complains distension etc
Assessment / Plan
-
voiding normally pvr abiut 300 or less no more cic
Diagnosis
-
Date of Service: October 07, 2024
-
Patient Diagnosis:
Post Op Day:
Patient Diagnosis:
Post Op Day:
Patient Diagnosis:bph h/o turp 2 now intermitent rettnion pos t diuresis getting better
Post Op Day:
Objective
-
Vital Signs
Temp Pulse Resp BP Pulse Ox
99.2 F 79 18 192/73 92
10/07/24 07:00 10/07/24 07:00 10/07/24 07:00 10/07/24 07:00 10/07/24 07:00
Intake and Output
10/06/24 10/07/24 10/08/24
06:59 06:59 06:59
Intake Total 780 / 780 960 / 960 967 / 967
Output Total 1740 / 1740 650 / 650 700 / 700
Balance -960 / -960 310 / 310 267 / 267
Intake:
Oral fluids 780 / 780 960 / 960 967 / 967
Output:
Urine, Voided 1740 / 1740 650 / 650 700 / 700
Other:
Number of unmeasured liquid
stools
Rectum 2 2 1
Laboratory Results
10/06/24 06:48
10/07/24 07:12
Review of Systems
-
: Difficulty Voiding
Physical Exam
-
General - well developed, well nourished, no acute distress
Chest - clear bilaterally
Abdomen - soft, non-tender, positive bowel sounds, no CVAT, no incisional pain or distention
Genitalia - normal
Rectal - normal
Skin - warm & dry with no rash
Neuro - AOx3, no motor deficits
Extremities - no clubbing, no cyanosis, no edema
Incision - clean, dry
Dressing - clean, dry, intact
Care Review
Data Reviewed
Discussed with: Nursing
[2024-10-07] MEDS: NSS 1000 IV (14:09)
[2024-10-07 15:00] VITALS: BP 122/51
[2024-10-07 16:51] LABS: Glucose - Point of Care 126 mg/dl (70-99)
--- NOTE | 2024-10-07 17:35 | W.PN.ID1 ---
Date of Service
Date of Service: October 07, 2024
Today's Communication
Continue antibiotics.
Assessment / Plan
# Immunocompromised host: renal transplant on mycophenolate, tacrolimus
# Uncomplicated Enterococcus faecalis bacteremia
# Enterococcus complicated UTI
# s/p Severe sepsis.
Fever resolved.
Leukocytosis resolved
# Upper GIB with blood loss anemia
09/28 EGD: gastric nonbleeding ulcer
# Acute pulm edema
# Toxic metabolic encephalopathy resolved
# Norovirus positive
- Repeat blood cx's neg to date
- TTE no gross veg
--> Continue Ampicillin 6g IV q6h + ceftriaxone 2gIV q12 (d#10) while inpatient.
--> At time of discharge, transition to po amoxicillin 1000mg po q8h, to continue through 10/10/24
- Contact precautions.
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
Diabetes with neuropathy and nephropathy
ESRD; previously on HD
Living related donor renal transplant 10/31/2022 at [place]
CKD3
HTN
Dyslipidemia
CAD
CVA
PAD s/p RLE endovascular intervention (08/18/24)
YASH on CPAP
Anxiety/depression
Macular degeneration
Narcolepsy
ADHD
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
Appendectomy
Right AV fistula
TURP
Knee arthroscopic surgery
Chief Complaint
-: UTI and Bacteremia
Subjective / Review of Systems
Review of Systems: No Fever, No Chills, No Cough and No Sputum Production
Vital Signs / Physical Exam
Vital Signs
Vital Signs
Temp Pulse Resp BP Pulse Ox
98.3 F 56 18 122/51 96
10/07/24 15:00 10/07/24 15:00 10/07/24 15:00 10/07/24 15:00 10/07/24 15:00
Physical Exam
Constitutional: No Acute Distress and Comfortable
Eyes: No Conjunctival Hemorrhage and Sclera Anicteric
Cardiovascular: Regular Rate and S1/S2; Negative S3/S4
Pulmonary: Non Labored
Gastrointestinal: Soft, Non Tender and Non Distended
Genito-Urinary: Clear Urine
Extremities: Edema (BLE)
Wound: Other (Right foot TMA site dressing intact without strikethrough.)
Neurological: AO x 3
Psychological: Calm
Objective Data
Lab Data
Lab Results
10/06/24 06:48
10/07/24 07:12
Estimated Creat Clear 55 ml/min 10/07/24 07:12
Lactic Acid 1.5 mmol/L (0.7-2.0) 09/25/24 21:24
Total Bilirubin 0.6 mg/dl (0.2-1.3) 09/25/24 21:24
AST 16 U/L (17-59) L 09/25/24 21:24
ALT 16 U/L (0-50) 09/25/24 21:24
Alkaline Phosphatase 80 U/L (38-126) 09/25/24 21:24
Most recent labs reviewed.
Micro Results:
10/07/24 11:27 C. difficile GDH Antigen & Toxins - Final
Feces/Stool Negative for toxigenic C.difficile
- Final
Positive for Norovirus GII
09/28/24 12:37 Blood Culture - Final
Blood/Venous No Growth - Final Report
09/28/24 06:58 Blood Culture - Final
Blood/Venous No Growth - Final Report
09/25/24 21:55 Blood Culture - Final
Blood/Venous Enterococcus faecalis
Gram Stain - Final
09/25/24 21:55 Blood Culture - Final
Blood/Venous Enterococcus faecalis
Gram Stain - Final
09/29/24 16:07 Salmonella/Shigella Culture - Final
Feces/Stool No Salmonella, Shigella, Aeromonas or Plesiomonas species
isolated.
Campylobacter Culture - Final
No Campylobacter species isolated.
Shiga Toxin Test - Final
No E. coli Shiga Toxin 1 or 2 detected.
Stool Leukocytes - Final
09/29/24 16:07 C. difficile GDH Antigen & Toxins - Final
Feces/Stool Negative for toxigenic C.difficile
09/26/24 01:03 Urine Culture - Final
Urine Enterococcus faecalis
09/25/24 21:24 Influenza Types A & B (MELVIN) - Final
Nasal Swab Negative for Influenza A & B, NAAT
Negative results must be combined with clinical observations
and patient history.
Nucleic Acid Amplification test (NAAT)performed on the
[employer] platform.
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 There is no evidence of renal calculus. There is mild circumferential urinary bladder wall thickening which can be seen with seen with cystitis. Recommend
correlation with urinalysis. Mild colonic stool burden without evidence of bowel obstruction.
09/25/24 CXR: No acute cardiopulmonary process.
09/28/24 CT a/p: SEVERE ACUTE INTERSTITIAL and ALVEOLAR CARDIOGENIC PULMONARY EDEMA. Right lower quadrant renal transplant in place. Mild duodenal wall thickening (possibly peptic ulcer disease). Mild wall thickening in the ascending and transverse
colon suggesting a mild colitis.
[2024-10-07 20:30] VITALS: BP 137/60
[2024-10-07] MEDS: LAC HYDRIN, AM LACTIN LOTION TOPICAL ×2 (20:32→20:40)
[2024-10-07 21:33] LABS: Glucose - Point of Care 160 mg/dl (70-99)
[2024-10-07 22:11] VITALS: BP 135/59
[2024-10-07] MEDS: ULTRAM 25 MG PO (22:12)
[2024-10-07] MEDS: PROCARDIA XL (EXTENDED RELEASE) 30 MG PO (22:13)
[2024-10-07] MEDS: LANTUS 0.2 UNITS SC (22:13)
[2024-10-07] MEDS: TYLENOL 650 MG PO (22:13)
[2024-10-07 23:00] VITALS: BP 97/55
[2024-10-08] MEDS: AMPICILLIN 108 MG IV ×4 (00:09→17:14)
[2024-10-08 06:00] VITALS: BMI 29.9
[2024-10-08 07:00] VITALS: BP 165/73
[2024-10-08 07:19] LABS: Glucose - Point of Care 192 mg/dl (70-99)
--- NOTE | 2024-10-08 08:16 | W.PN.HOSP.TC ---
Today's Communication/Plan
-
see A/P
Assessment / Plan
Assessment / Plan
Assessment/Plan
# Sepsis POA 2/ Enterococcal bacteremia and UTI
# Immunocompromised state with history of renal transplant
Blood culture 2 sets grew Enterococcus faecalis, negative since 09/28
Urine culture also grew enterococci faecalis
Initial CT abdomen pelvis did not show any obstruction/pyelonephritis/abscess
Zosyn was changed to Rocephin and Ampicillin, with plan to transition to po amoxicillin 1000 mg po q8h through 10/10/24 per ID upon discharge
TTE showed no clear vegetation
# Acute urinary retention
Cont Flomax
No need to cont straight cath per Uro.
Uro on board per pt request
# Shortness of Breath with Acute Hypoxic Respiratory Insufficiency, likely new-onset HFpEF
# SEVERE ACUTE INTERSTITIAL and ALVEOLAR CARDIOGENIC PULMONARY EDEMA on CT Chest
# Small bilateral pleural effusions with adjacent compressive bibasilar subsegmental atelectasis.
Echo showed normal LVEF, normal right ventricle, normal pericardium
s/p Lasix IV with improvement in symptoms. Cont PO Lasix 20 mg daily with holding parameter
# Acute blood loss anemia
s/p total of 3 u prbc's this hospitalization
maintain on PPI
GI EGD on 09/28/24: clean based gastric ulcer. Needs ppi po bid for 8 weeks. GI office will call him for f/u as he needs a repeat in 8 weeks
# SHERRY on CKD III
# Metabolic acidosis, resoled
# h/o Renal Transplant
SCr peaked at 1.8, back to baseline at 1.3
Maintained on tacrolimus/prednisone/mycophenolate. Tacrolimus level 08/19 was 5.8, repeat is 5.2 (from 09/27/24)
Nephrology following.
# Watery diarrhea started 10/07, 2 Norovirus
Gentle IVF
Monitor symptoms
contact precaution
# Hypokalemia, replaced and resolved
# ASCVD / PAD, Stable.
# Moderate diffuse subcutaneous edema in both lower legs.
# Recent admission for Right foot transmetatarsal amputation for Right foot dried forefoot gangrene and bilateral subcutaneous debridement
Wounds / surgical sites are well appearing without evidence of active infection, erythema, discharge, etc.
Wound Care eval for continued local care.
# Neuropathic (shooting) pain RLE from recent surgery
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
Cont Tylenol, added tramadol 25 mg PRN
# Benign Hypertension
# HTN urgency
Cont home Coreg 6.25 BID
Nifedipine increased to 60 mg daily and 30 mg HS
Lisinopril 10 mg added
Cont BP meds with holing parameters
prn Hydralazine
# IDDM, Stable.
Cont Aspart, adjusted down to 5 units AC,
Cont Lantus at 20 units HS (home dose)
Follow glucose and cover with SSI as needed.
# Anxiety, Stable.
Continue clonazepam PRN.
# Hyponatremia
monitor
DVT Prophylaxis: SCDs only.
Code Status: Full Code
Dispo: SNF per PMR eval
DW RN
Anticipated Discharge: Within 24 hours
Subjective/Interval History
-
Date of Service: October 08, 2024
Objective Data
-
Labs:
Laboratory Results
10/08/24
07:22
Sodium Pending
Potassium Pending
Chloride Pending
Carbon Dioxide Pending
BUN Pending
Creatinine Pending
Glucose Pending
Calcium Pending
Vital Signs:
Vital Signs
Temp Pulse Resp BP Pulse Ox
36.3 C 71 18 97/55 95
10/07/24 23:00 10/07/24 23:00 10/07/24 23:00 10/07/24 23:00 10/07/24 23:00
I&O
10/07/24 10/08/24 10/09/24
06:59 06:59 06:59
Intake Total 960 / 960 2042
Output Total 650 / 650 1100 / 1100
Balance 310 / 310 943 / 943
Review of Systems
-
History Source: Patient
All other systems: Reviewed and negative
Physical Exam
-
General: Well Developed, Well Nourished, No Apparent Distress, Comfortable and Conversant
HEENT: Normocephalic and Atraumatic
Respiratory: Clear to Auscultation and Non Labored Respirations; Negative Accessory Resp Muscle Use
Cardiac: Regular Rhythm and S1/S2
GI: Soft, Nontender and Nondistended
Skin: Other (R foot in wound dressing )
Neuro: Awake, Alert and Oriented
Psych: Calm and Intact Judgement/Insight
Data Reviewed
-
Labs: Labs Reviewed by me
--- NOTE | 2024-10-08 08:20 | W.PN.URO.CBU ---
Today's Communication / Plan
-
no gu changes
Assessment / Plan
-
voiding normally pvr abiut 300 or less no more cic
Diagnosis
-
Date of Service: October 08, 2024
-
Patient Diagnosis:
Post Op Day:
Patient Diagnosis:
Post Op Day:
Patient Diagnosis:
Post Op Day:
Patient Diagnosis:bph h/o turp 2 now intermitent rettnion pos t diuresis getting better
Post Op Day:
Subjective
-
voiding at baseline
Objective
-
Vital Signs
Temp Pulse Resp BP Pulse Ox
97.3 F 71 18 97/55 95
10/07/24 23:00 10/07/24 23:00 10/07/24 23:00 10/07/24 23:00 10/07/24 23:00
Intake and Output
10/07/24 10/08/24 10/09/24
06:59 06:59 06:59
Intake Total 960 / 960 2043 / 2043
Output Total 650 / 650 1100 / 1100
Balance 310 / 310 943 / 943
Intake:
Oral fluids 960 / 960 1327 / 1327
IV fluids (Total) 500 / 500
IV piggybacks 216 / 216
Output:
Urine, Voided 650 / 650 1100 / 1100
Other:
Number of approximated MODERATE 2
amounts of urine
Number of unmeasured liquid
stools
Rectum 2 2
Laboratory Results
10/06/24 06:48
Review of Systems
-
: No Symptoms
Physical Exam
-
General - well developed, well nourished, no acute distress
Chest - clear bilaterally
Abdomen - soft, non-tender, positive bowel sounds, no CVAT, no incisional pain or distention
Genitalia - normal
Rectal - normal
Skin - warm & dry with no rash
Neuro - AOx3, no motor deficits
Extremities - no clubbing, no cyanosis, no edema
Incision - clean, dry
Dressing - clean, dry, intact
[2024-10-08 08:21] LABS: Blood Urea Nitrogen 15 mg/dl (9-20); Calcium 8.3 mg/dl (8.4-10.2); Carbon Dioxide 23 mmol/L (22-30); Chloride 105 mmol/L (98-107); Estimated Creatinine Clearance 65 ml/min; Glucose 191 mg/dl (70-99); Potassium 4.3 mmol/L (3.5-5.1); Sodium 137 mmol/L (135-145); eGFR > 60.00
[2024-10-08] MEDS: LAC HYDRIN, AM LACTIN LOTION 1 APPLIC TOPICAL (08:35)
[2024-10-08] MEDS: NOVOLOG FLEXPEN-LOW RESISTANCE 1 UNITS SC ×3 (08:36→17:46)
[2024-10-08] MEDS: NEURONTIN 200 MG PO ×3 (08:37→22:33)
[2024-10-08] MEDS: PROTONIX 40 MG PO ×2 (08:37→20:11)
[2024-10-08] MEDS: LIPITOR 40 MG PO (08:37)
[2024-10-08] MEDS: LOW STRENGTH ASPIRIN 81 MG PO (08:37)
[2024-10-08] MEDS: DELTASONE 5 MG PO (08:37)
[2024-10-08] MEDS: ZESTRIL 10 MG PO (08:37)
[2024-10-08] MEDS: PLAVIX 75 MG PO (08:37)
[2024-10-08] MEDS: COREG 6.25 MG PO ×2 (08:38→20:11)
[2024-10-08] MEDS: MYFORTIC DELAYED REL. 720 MG PO ×2 (08:38→20:11)
[2024-10-08] MEDS: LASIX 20 MG PO (08:38)
[2024-10-08] MEDS: PROGRAF 2 MG PO ×2 (08:38→20:10)
[2024-10-08] MEDS: FLOMAX 0.8 MG PO (08:38)
[2024-10-08] MEDS: PROCARDIA XL (EXTENDED RELEASE) 60 MG PO (08:38)
[2024-10-08] MEDS: NOVOLOG FLEXPEN SC (09:10)
[2024-10-08] MEDS: NOVOLOG FLEXPEN 5 UNITS SC ×3 (09:34→17:46)
[2024-10-08] MEDS: ROCEPHIN 2000 MG IV ×2 (09:35→22:34)
[2024-10-08] MEDS: STERILE WATER FOR INJECTION 20 ML IV ×2 (09:35→22:34)
[2024-10-08] MEDS: NSS 1000 IV (09:36)
[2024-10-08 10:26] VITALS: BP 171/70; PULSE 60; O2SAT 98
[2024-10-08 11:38] LABS: Glucose - Point of Care 186 mg/dl (70-99)
--- NOTE | 2024-10-08 12:19 | W.PN.NEPH.PH ---
Today's Communication / Plan
-
Follow BP
Assessment/Plan
-
Assessment:
Sepsis
enterococcal bacteremia and UTI
SHERRY on CKD III-baseline cr 1.3-1.5
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
Heme Positive Stools
Acute Blood Loss Anemia
b/l LE Wounds
ASCVD / PAD
Benign Hypertension
Anxiety
h/o syncope from severe orthostatic hypotension
-DM2-with microvascular complications
Anxiety, Insomnia
BPH
Plan:
Follow BMP
cont IS Tac, MMF and Pred, Tac level 5.2 on admit
Continue nifedipine 30 mg at night, follow evening blood pressures
-
-
Date of Service: October 08, 2024
CC / HPI / ROS
-
Chief Complaint:
SHERRY with CKD h/o KTP
History of Present Illness:
SHERRY/Cr stable at 1.1
BP slightly better though was low last night
[place] out
abx for enterococcus sepsis
Review of Systems:
no n/v
Diarrhea better
no CP
no sob on RA
nonoliguric with lasix
Labs
-
Labs:
WBC 10.3 10^3/uL (4.8-10.8) 10/06/24 06:48
RBC 3.72 10^6/uL (4.70-6.10) L 10/06/24 06:48
Hgb 10.3 g/dL (13.0-18.0) L 10/06/24 06:48
Hct 32.8 % (39.0-52.0) L 10/06/24 06:48
Plt Count 334 10^3/uL (130-400) 10/06/24 06:48
Sodium 137 mmol/L (135-145) 10/08/24 07:22
Potassium 4.3 mmol/L (3.5-5.1) 10/08/24 07:22
Chloride 105 mmol/L (98-107) 10/08/24 07:22
Carbon Dioxide 23 mmol/L (22-30) 10/08/24 07:22
BUN 15 mg/dl (9-20) 10/08/24 07:22
Creatinine 1.1 mg/dL (0.7-1.3) 10/08/24 07:22
eGFR > 60.00 10/08/24 07:22
Glucose 191 mg/dl (70-99) H 10/08/24 07:22
Calcium 8.3 mg/dl (8.4-10.2) L 10/08/24 07:22
Phosphorus 3.5 mg/dl (2.5-4.5) 09/26/24 05:35
Jwp-I-Rqgusrqqumn Pept 8240 pg/ml 09/28/24 15:50
Albumin 2.7 g/dl (3.5-5.0) L 10/01/24 05:42
Physical Exam
-
Vital Signs:
Vital Signs
Temp Pulse Resp BP Pulse Ox
97.9 F 65 20 165/73 96
10/08/24 07:00 10/08/24 08:38 10/08/24 07:00 10/08/24 08:38 10/08/24 07:00
Cardiovascular:: Regular rate and rhythm
Respiratory:: Bilateral: Coarse
Lung Excursion:: Normal
Abdomen:: Nontender and Soft
Bowel Sounds:: Normal
Extremity Edema:: None: Bilateral:
[2024-10-08 16:08] VITALS: BP 160/86
[2024-10-08 17:06] LABS: Glucose - Point of Care 168 mg/dl (70-99)
[2024-10-08] MEDS: LAC HYDRIN, AM LACTIN LOTION TOPICAL (20:09)
[2024-10-08 20:10] VITALS: BP 158/65
[2024-10-08 22:13] LABS: Glucose - Point of Care 182 mg/dl (70-99)
[2024-10-08 22:31] VITALS: BP 167/75
[2024-10-08] MEDS: ULTRAM 25 MG PO (22:32)
[2024-10-08] MEDS: PROCARDIA XL (EXTENDED RELEASE) 30 MG PO (22:33)
[2024-10-08] MEDS: TYLENOL 650 MG PO (22:33)
[2024-10-08] MEDS: LANTUS 0.2 UNITS SC (22:34)
[2024-10-08 23:09] VITALS: BP 163/75
[2024-10-09] MEDS: AMPICILLIN 108 MG IV ×5 (00:35→23:57)
[2024-10-09 06:00] VITALS: BMI 29.9
[2024-10-09 07:30] VITALS: BP 166/72
[2024-10-09 08:23] LABS: Glucose - Point of Care 219 mg/dl (70-99)
[2024-10-09 08:27] LABS: Blood Urea Nitrogen 14 mg/dl (9-20); Calcium 8.6 mg/dl (8.4-10.2); Carbon Dioxide 25 mmol/L (22-30); Chloride 103 mmol/L (98-107); Estimated Creatinine Clearance 71 ml/min; Glucose 209 mg/dl (70-99); Potassium 4.8 mmol/L (3.5-5.1); Sodium 136 mmol/L (135-145); eGFR > 60.00
[2024-10-09] MEDS: PROGRAF 2 MG PO ×2 (08:53→21:20)
--- NOTE | 2024-10-09 08:53 | W.PN.HOSP.TC ---
Today's Communication/Plan
-
dispo planning to SNF
Assessment / Plan
Assessment / Plan
Assessment/Plan
# Sepsis POA 2/ Enterococcal bacteremia and UTI
# Immunocompromised state with history of renal transplant
Blood culture 2 sets grew Enterococcus faecalis, negative since 09/28
Urine culture also grew enterococci faecalis
Initial CT abdomen pelvis did not show any obstruction/pyelonephritis/abscess
Zosyn was changed to Rocephin and Ampicillin, with plan to transition to po amoxicillin 1000 mg po q8h through 10/10/24 per ID upon discharge
TTE showed no clear vegetation
# Acute urinary retention
Cont Flomax
No need to cont straight cath per Uro.
Uro on board per pt request
# Shortness of Breath with Acute Hypoxic Respiratory Insufficiency, likely new-onset HFpEF
# SEVERE ACUTE INTERSTITIAL and ALVEOLAR CARDIOGENIC PULMONARY EDEMA on CT Chest
# Small bilateral pleural effusions with adjacent compressive bibasilar subsegmental atelectasis.
Echo showed normal LVEF, normal right ventricle, normal pericardium
s/p Lasix IV with improvement in symptoms. Cont PO Lasix 20 mg daily with holding parameter
# Acute blood loss anemia
s/p total of 3 u prbc's this hospitalization
maintain on PPI
GI EGD on 09/28/24: clean based gastric ulcer. Needs ppi po bid for 8 weeks. GI office will call him for f/u as he needs a repeat in 8 weeks
# SHERRY on CKD III
# Metabolic acidosis, resoled
# h/o Renal Transplant
SCr peaked at 1.8, back to baseline at 1.3
Maintained on tacrolimus/prednisone/mycophenolate. Tacrolimus level 08/19 was 5.8, repeat is 5.2 (from 09/27/24)
Nephrology following.
# Watery diarrhea started 10/07, 2/ Norovirus, resolved
DC further gentle IVF
symptoms improved
contact precaution
# Hypokalemia, replaced and resolved
# ASCVD / PAD, Stable.
# Moderate diffuse subcutaneous edema in both lower legs.
# Recent admission for Right foot transmetatarsal amputation for Right foot dried forefoot gangrene and bilateral subcutaneous debridement
Wounds / surgical sites are well appearing without evidence of active infection, erythema, discharge, etc.
Wound Care eval for continued local care.
# Neuropathic (shooting) pain RLE from recent surgery
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
Cont Tylenol, added tramadol 25 mg PRN
# Benign Hypertension
# HTN urgency
Cont home Coreg 6.25 BID
Nifedipine increased to 60 mg daily and added 30 mg HS
Lisinopril 10 mg added
Cont BP meds with holing parameters
prn Hydralazine
# IDDM, Stable.
Cont Aspart, adjusted down to 5 units AC,
Cont Lantus at 20 units HS (home dose)
Follow glucose and cover with SSI as needed.
# Anxiety, Stable.
Continue clonazepam PRN.
# Hyponatremia
monitor
DVT Prophylaxis: SCDs only.
Code Status: Full Code
Dispo: SNF per PMR eval
DW RN
Anticipated Discharge: Within 24 hours
Subjective/Interval History
-
Date of Service: October 09, 2024
Objective Data
-
Labs:
Laboratory Results
10/09/24
07:28
Sodium 136
Potassium 4.8
Chloride 103
Carbon Dioxide 25
BUN 14
Creatinine 1.0
Glucose 209 H
Calcium 8.6
Vital Signs:
Vital Signs
Temp Pulse Resp BP Pulse Ox
36.5 C 61 20 166/72 97
10/09/24 07:30 10/09/24 07:30 10/09/24 07:30 10/09/24 07:30 10/09/24 07:30
I&O
10/08/24 10/09/24 10/10/24
06:59 06:59 06:59
Intake Total 2042 1196 / 1196
Output Total 1100 / 1100 3125 / 3125
Balance 943 / 943 -1929 / -192
Review of Systems
-
History Source: Patient
All other systems: Reviewed and negative
Physical Exam
-
General: Well Developed, Well Nourished, No Apparent Distress, Comfortable and Conversant
HEENT: Normocephalic and Atraumatic
Respiratory: Clear to Auscultation and Non Labored Respirations; Negative Accessory Resp Muscle Use
Cardiac: Regular Rhythm and S1/S2
GI: Soft, Nontender and Nondistended
Skin: Other (R foot in wound dressing )
Neuro: Awake, Alert and Oriented
Psych: Calm and Intact Judgement/Insight
Data Reviewed
-
Labs: Labs Reviewed by me
[2024-10-09] MEDS: PROCARDIA XL (EXTENDED RELEASE) 60 MG PO (08:58)
[2024-10-09] MEDS: PROTONIX 40 MG PO ×2 (09:06→21:21)
[2024-10-09] MEDS: LOW STRENGTH ASPIRIN 81 MG PO (09:06)
[2024-10-09] MEDS: LIPITOR 40 MG PO (09:06)
[2024-10-09] MEDS: MYFORTIC DELAYED REL. 720 MG PO ×2 (09:06→21:20)
[2024-10-09] MEDS: ZESTRIL 10 MG PO (09:07)
[2024-10-09] MEDS: COREG 6.25 MG PO ×2 (09:07→21:19)
[2024-10-09] MEDS: LASIX 20 MG PO (09:07)
[2024-10-09] MEDS: PLAVIX 75 MG PO (09:08)
[2024-10-09] MEDS: NEURONTIN 200 MG PO ×3 (09:08→21:21)
[2024-10-09] MEDS: FLOMAX 0.8 MG PO (09:08)
[2024-10-09] MEDS: NOVOLOG FLEXPEN-LOW RESISTANCE 2 UNITS SC ×2 (09:09→12:28)
[2024-10-09] MEDS: DELTASONE 5 MG PO (09:09)
[2024-10-09] MEDS: NOVOLOG FLEXPEN 5 UNITS SC ×3 (09:10→17:57)
[2024-10-09] MEDS: LAC HYDRIN, AM LACTIN LOTION 1 APPLIC TOPICAL ×2 (09:11→21:19)
[2024-10-09] MEDS: ROCEPHIN 2000 MG IV ×2 (09:12→21:22)
[2024-10-09] MEDS: STERILE WATER FOR INJECTION 20 ML IV ×2 (09:12→21:21)
[2024-10-09] MEDS: NSS IV (09:26)
[2024-10-09 11:39] LABS: Glucose - Point of Care 211 mg/dl (70-99)
--- NOTE | 2024-10-09 11:55 | CM ---
CM reviewed chart, patient seen bedside. Patient asking if he is able to bear weight, he would prefer to return home rather than rehab. TT to Hospitalist with update. CM spoke with Gertrudis Palma, showing patients insurance is not Medicare primary,
showing as [place] [employer]- active 10/13/22-term date 10/13/26- patient reports he does not have this insurance policy and does have Medicare primary. Patient concerned with discharging home with Norovirus. CM provided IMM, verbally
reviewed, patient understands right to appeal. CM will continue to follow for all discharge planning needs.
Plan; potential home with services versus SNF
--- NOTE | 2024-10-09 13:36 | W.PN.NEPH.PH ---
Today's Communication / Plan
-
Okay for discharge from renal standpoint
Assessment/Plan
-
Assessment:
Sepsis
enterococcal bacteremia and UTI
SHERRY on CKD III-baseline cr 1.3-1.5
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
Heme Positive Stools
Acute Blood Loss Anemia
b/l LE Wounds
ASCVD / PAD
Benign Hypertension
Anxiety
h/o syncope from severe orthostatic hypotension
-DM2-with microvascular complications
Anxiety, Insomnia
BPH
Plan:
Follow BMP
cont IS Tac, MMF and Pred, Tac level 5.2 on admit
Continue nifedipine 30 mg at night, follow evening blood pressures
Blood pressures are reasonable for discharge from renal standpoint and can follow-up with his outpatient nephrology
-
-
Date of Service: October 09, 2024
CC / HPI / ROS
-
Chief Complaint:
SHERRY with CKD h/o KTP
History of Present Illness:
SHERRY/Cr stable at 1.1
BP slightly better though was low last night
[place] out
abx for enterococcus sepsis
Review of Systems:
no n/v
Diarrhea better
no CP
no sob on RA
nonoliguric with lasix
Labs
-
Labs:
WBC 10.3 10^3/uL (4.8-10.8) 10/06/24 06:48
RBC 3.72 10^6/uL (4.70-6.10) L 10/06/24 06:48
Hgb 10.3 g/dL (13.0-18.0) L 10/06/24 06:48
Hct 32.8 % (39.0-52.0) L 10/06/24 06:48
Plt Count 334 10^3/uL (130-400) 10/06/24 06:48
Sodium 136 mmol/L (135-145) 10/09/24 07:28
Potassium 4.8 mmol/L (3.5-5.1) 10/09/24 07:28
Chloride 103 mmol/L (98-107) 10/09/24 07:28
Carbon Dioxide 25 mmol/L (22-30) 10/09/24 07:28
BUN 14 mg/dl (9-20) 10/09/24 07:28
Creatinine 1.0 mg/dL (0.7-1.3) 10/09/24 07:28
eGFR > 60.00 10/09/24 07:28
Glucose 209 mg/dl (70-99) H 10/09/24 07:28
Calcium 8.6 mg/dl (8.4-10.2) 10/09/24 07:28
Phosphorus 3.5 mg/dl (2.5-4.5) 09/26/24 05:35
Wov-I-Fhcumctuavc Pept 8240 pg/ml 09/28/24 15:50
Albumin 2.7 g/dl (3.5-5.0) L 10/01/24 05:42
Physical Exam
-
Vital Signs:
Vital Signs
Temp Pulse Resp BP Pulse Ox
97.7 F 61 20 166/72 97
10/09/24 07:30 10/09/24 07:30 10/09/24 07:30 10/09/24 07:30 10/09/24 07:30
Cardiovascular:: Regular rate and rhythm
Respiratory:: Bilateral: Coarse
Lung Excursion:: Normal
Abdomen:: Nontender and Soft
Bowel Sounds:: Normal
Extremity Edema:: None: Bilateral:
[2024-10-09 15:50] VITALS: BP 158/69
[2024-10-09 16:59] LABS: Glucose - Point of Care 117 mg/dl (70-99)
--- NOTE | 2024-10-09 17:38 | W.PN.ID1 ---
Date of Service
Date of Service: October 09, 2024
Today's Communication
Continue antibiotics.
Assessment / Plan
# Immunocompromised host: renal transplant on mycophenolate, tacrolimus
# Uncomplicated Enterococcus faecalis bacteremia
# Enterococcus complicated UTI
# s/p Severe sepsis.
Fever resolved.
Leukocytosis resolved
# Upper GIB with blood loss anemia
09/28 EGD: gastric nonbleeding ulcer
# Acute pulm edema
# Toxic metabolic encephalopathy resolved
# Norovirus positive
- no current symptomatology
- Repeat blood cx's neg to date
- TTE no gross veg
--> Continue Ampicillin 2g IV q6h + ceftriaxone 2gIV q12 (d#13) through tomorrow then discontinue.
--> Contact precautions for Norovirus
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
Diabetes with neuropathy and nephropathy
ESRD; previously on HD
Living related donor renal transplant 10/31/2022 at [facility]
CKD3
HTN
Dyslipidemia
CAD
CVA
PAD s/p RLE endovascular intervention (08/18/24)
YASH on CPAP
Anxiety/depression
Macular degeneration
Narcolepsy
ADHD
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
Appendectomy
Right AV fistula
TURP
Knee arthroscopic surgery
Chief Complaint
-: UTI and Bacteremia
Subjective / Review of Systems
Review of Systems: No Fever and No Chills
Vital Signs / Physical Exam
Vital Signs
Vital Signs
Temp Pulse Resp BP Pulse Ox
97.4 F 62 16 158/69 97
10/09/24 15:50 10/09/24 15:50 10/09/24 15:50 10/09/24 15:50 10/09/24 15:50
Physical Exam
Constitutional: No Acute Distress and Comfortable
Eyes: No Conjunctival Hemorrhage and Sclera Anicteric
Cardiovascular: Regular Rate and S1/S2; Negative S3/S4
Pulmonary: Non Labored
Gastrointestinal: Soft, Non Tender and Non Distended
Genito-Urinary: Clear Urine
Extremities: Edema (BLE)
Wound: Other (Right foot TMA site clean, dry and intact. No periwound erythema. No open drainage.)
Neurological: AO x 3
Psychological: Calm
Objective Data
Lab Data
Lab Results
10/06/24 06:48
10/09/24 07:28
Estimated Creat Clear 71 ml/min 10/09/24 07:28
Lactic Acid 1.5 mmol/L (0.7-2.0) 09/25/24 21:24
Total Bilirubin 0.6 mg/dl (0.2-1.3) 09/25/24 21:24
AST 16 U/L (17-59) L 09/25/24 21:24
ALT 16 U/L (0-50) 09/25/24 21:24
Alkaline Phosphatase 80 U/L (38-126) 09/25/24 21:24
Most recent labs reviewed.
Micro Results:
10/07/24 11:27 C. difficile GDH Antigen & Toxins - Final
Feces/Stool Negative for toxigenic C.difficile
- Final
Positive for Norovirus GII
09/28/24 12:37 Blood Culture - Final
Blood/Venous No Growth - Final Report
09/28/24 06:58 Blood Culture - Final
Blood/Venous No Growth - Final Report
09/25/24 21:55 Blood Culture - Final
Blood/Venous Enterococcus faecalis
Gram Stain - Final
09/25/24 21:55 Blood Culture - Final
Blood/Venous Enterococcus faecalis
Gram Stain - Final
09/29/24 16:07 Salmonella/Shigella Culture - Final
Feces/Stool No Salmonella, Shigella, Aeromonas or Plesiomonas species
isolated.
Campylobacter Culture - Final
No Campylobacter species isolated.
Shiga Toxin Test - Final
No E. coli Shiga Toxin 1 or 2 detected.
Stool Leukocytes - Final
09/29/24 16:07 C. difficile GDH Antigen & Toxins - Final
Feces/Stool Negative for toxigenic C.difficile
09/26/24 01:03 Urine Culture - Final
Urine Enterococcus faecalis
09/25/24 21:24 Influenza Types A & B (MELVIN) - Final
Nasal Swab Negative for Influenza A & B, NAAT
Negative results must be combined with clinical observations
and patient history.
Nucleic Acid Amplification test (NAAT)performed on the
[employer] platform.
09/26/24 CT a/p: Atrophic [place] kidneys with right lower quadrant transplant kidney. There is no evidence of renal calculus. There is mild circumferential urinary bladder wall thickening which can be seen with seen with cystitis. Recommend
correlation with urinalysis. Mild colonic stool burden without evidence of bowel obstruction.
09/25/24 CXR: No acute cardiopulmonary process.
09/28/24 CT a/p: SEVERE ACUTE INTERSTITIAL and ALVEOLAR CARDIOGENIC PULMONARY EDEMA. Right lower quadrant renal transplant in place. Mild duodenal wall thickening (possibly peptic ulcer disease). Mild wall thickening in the ascending and transverse
colon suggesting a mild colitis.
[2024-10-09] MEDS: NOVOLOG FLEXPEN-LOW RESISTANCE SC (17:57)
[2024-10-09 21:16] VITALS: BP 142/58
[2024-10-09] MEDS: PROCARDIA XL (EXTENDED RELEASE) 30 MG PO (21:21)
[2024-10-09] MEDS: ULTRAM 25 MG PO (21:22)
[2024-10-09 22:35] LABS: Glucose - Point of Care 260 mg/dl (70-99)
[2024-10-09] MEDS: LANTUS 0.2 UNITS SC (22:54)
[2024-10-09 23:06] VITALS: BP 143/56
[2024-10-10] MEDS: AMPICILLIN 108 MG IV ×3 (05:59→17:06)
[2024-10-10 06:00] VITALS: BMI 29.9
[2024-10-10 06:29] LABS: Blood Urea Nitrogen 16 mg/dl (9-20); Calcium 8.9 mg/dl (8.4-10.2); Carbon Dioxide 26 mmol/L (22-30); Chloride 102 mmol/L (98-107); Estimated Creatinine Clearance 71 ml/min; Glucose 249 mg/dl (70-99); Potassium 4.9 mmol/L (3.5-5.1); Sodium 137 mmol/L (135-145); eGFR > 60.00
--- NOTE | 2024-10-10 06:45 | PTCARENOTE ---
Patient expressed concerns about discharge. Patient concerned about norovirus as well as being evaluated by someone from the surgical team who operated on his R foot. RN passed in report to notify attending that patient would like to request a
consult. Patient is concerned about weight-bearing status and what he'll be allowed to do at rehab.
[2024-10-10 07:22] VITALS: BP 137/61
--- NOTE | 2024-10-10 07:35 | W.PN.HOSP.TC ---
Addendum entered and electronically signed by Virgilio Main MD 10/10/24 13:30:
Per podiatrists Dr. Jermaine Samano and Dr. Andrade Valencia, patient can do weight bearing as tolerated to the RLE, and continue LLE weightbearing for transfers only.
Original Note:
Today's Communication/Plan
-
Disposition pending -- home vs. SNF -- podiatry helping to decide whether patient can bear weight on his right foot and can be discharged home vs. SNF
Continue IV antibiotics through today (today is last day)
Assessment / Plan
Assessment / Plan
Physical Exam
General: Not in acute distress
HEENT: Normocephalic and Atraumatic
Respiratory: Clear to Auscultation Bilaterally
Cardiac: Regular Rhythm and S1/S2
GI: Soft, Nontender and Nondistended
Skin: Other (R foot in wound dressing )
Neuro: Awake, Alert and Oriented
Psych: Calm and Intact Judgement/Insight
Assessment/Plan
# Sepsis POA 2/2 Enterococcal bacteremia and UTI
# Immunocompromised state with history of renal transplant
Blood culture 2 sets grew Enterococcus faecalis, negative since 09/28
Urine culture also grew enterococci faecalis
Initial CT abdomen pelvis did not show any obstruction/pyelonephritis/abscess
Zosyn was changed to Rocephin and Ampicillin -- continue through today, and then stop
TTE showed no clear vegetation
# Acute urinary retention
Cont Flomax
No need to cont straight cath per Uro.
Uro on board per pt request
# Shortness of Breath with Acute Hypoxic Respiratory Insufficiency, likely new-onset HFpEF
# SEVERE ACUTE INTERSTITIAL and ALVEOLAR CARDIOGENIC PULMONARY EDEMA on CT Chest
# Small bilateral pleural effusions with adjacent compressive bibasilar subsegmental atelectasis.
Echo showed normal LVEF, normal right ventricle, normal pericardium
s/p Lasix IV with improvement in symptoms. Cont PO Lasix 20 mg daily with holding parameter
# Acute blood loss anemia
s/p total of 3 u prbc's this hospitalization
maintain on PPI
GI EGD on 09/28/24: clean based gastric ulcer. Needs ppi po bid for 8 weeks. GI office will call him for f/u as he needs a repeat in 8 weeks
# SHERRY on CKD III
# Metabolic acidosis, resoled
# h/o Renal Transplant
SCr peaked at 1.8, back to baseline at 1.3
Maintained on tacrolimus/prednisone/mycophenolate. Tacrolimus level 08/19 was 5.8, repeat is 5.2 (from 09/27/24)
Nephrology following.
# Watery diarrhea started 10/07, 08/23 Norovirus, resolved
Was previously given IV fluids which were stopped
symptoms improved
contact precautions
# Hypokalemia, replaced and resolved
# ASCVD / PAD, Stable.
# Moderate diffuse subcutaneous edema in both lower legs.
# Recent admission for Right foot transmetatarsal amputation for Right foot dried forefoot gangrene and bilateral subcutaneous debridement
Patient was told to be nonweightbearing right leg and left leg weightbearing for transfers only as of early August 2023
Patient stated that he prefers to go home if allowed to bear weight on his right foot -- discussing case (not consult) with agricultural labor camp manager Dr. Andrade Valencia
Wounds / surgical sites are well appearing without evidence of active infection, erythema, discharge, etc.
Wound Care eval for continued local care.
# Neuropathic (shooting) pain RLE from recent surgery
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
Cont Tylenol, added tramadol 25 mg PRN
# Benign Hypertension
# HTN urgency
Cont home Coreg 6.25 BID
Nifedipine increased to 60 mg daily and added 30 mg HS
Lisinopril 10 mg added
Cont BP meds with holing parameters
prn Hydralazine
# IDDM, Stable.
Cont Aspart, adjusted down to 5 units AC
Cont Lantus at 20 units HS (home dose)
Follow glucose and cover with SSI as needed.
# Anxiety, Stable.
Continue clonazepam PRN.
# Hyponatremia
monitor
DVT Prophylaxis: SCDs only.
Code Status: Full Code
Dispo: Home vs. SNF
DW RN
Anticipated Discharge: 24 - 48 hours
Subjective/Interval History
-
Date of Service: October 10, 2024
Patient was seen and examined. He reported his diarrhea is less, and he denied any new symptoms or complaints.
Objective Data
-
Labs:
Laboratory Results
10/10/24
05:30
Sodium 137
Potassium 4.9
Chloride 102
Carbon Dioxide 26
BUN 16
Creatinine 1.0
Glucose 249 H
Calcium 8.9
Vital Signs:
Vital Signs
Temp Pulse Resp BP Pulse Ox
98.1 F 65 18 143/56 98
10/09/24 23:06 10/09/24 23:06 10/09/24 23:06 10/09/24 23:06 10/09/24 23:06
I&O
10/09/24 10/10/24 10/11/24
06:59 06:59 06:59
Intake Total 1196 / 1196 1640 / 1640
Output Total 3125 / 3125 1825 / 1825
Balance -1929 / -1929 -185 / -185
[2024-10-10 08:15] LABS: Glucose - Point of Care 213 mg/dl (70-99)
[2024-10-10] MEDS: NEURONTIN 200 MG PO ×3 (09:03→21:25)
[2024-10-10] MEDS: PROTONIX 40 MG PO ×2 (09:03→21:23)
[2024-10-10] MEDS: LIPITOR 40 MG PO (09:03)
[2024-10-10] MEDS: LOW STRENGTH ASPIRIN 81 MG PO (09:04)
[2024-10-10] MEDS: PLAVIX 75 MG PO (09:04)
[2024-10-10] MEDS: ZESTRIL 10 MG PO (09:04)
[2024-10-10] MEDS: FLOMAX 0.8 MG PO (09:05)
[2024-10-10] MEDS: DELTASONE 5 MG PO (09:05)
[2024-10-10] MEDS: MYFORTIC DELAYED REL. 720 MG PO ×2 (09:06→21:24)
[2024-10-10] MEDS: PROGRAF 2 MG PO ×2 (09:06→21:24)
[2024-10-10] MEDS: PROCARDIA XL (EXTENDED RELEASE) 60 MG PO (09:06)
[2024-10-10] MEDS: COREG 6.25 MG PO ×2 (09:06→21:38)
[2024-10-10] MEDS: NOVOLOG FLEXPEN 5 UNITS SC ×3 (09:07→17:07)
[2024-10-10] MEDS: NOVOLOG FLEXPEN-LOW RESISTANCE 2 UNITS SC ×2 (09:07→12:33)
[2024-10-10] MEDS: LASIX 20 MG PO (09:07)
[2024-10-10] MEDS: LAC HYDRIN, AM LACTIN LOTION 1 APPLIC TOPICAL ×2 (09:08→21:23)
[2024-10-10] MEDS: STERILE WATER FOR INJECTION 20 ML IV ×2 (09:09→21:24)
[2024-10-10] MEDS: ROCEPHIN 2000 MG IV ×2 (09:09→21:24)
[2024-10-10 11:46] LABS: Glucose - Point of Care 204 mg/dl (70-99)
--- NOTE | 2024-10-10 12:16 | W.PN.NEPH.PH ---
Today's Communication / Plan
-
BMP in the morning no change
Assessment/Plan
-
Assessment:
Sepsis
enterococcal bacteremia and UTI
SHERRY on CKD III-baseline cr 1.3-1.5
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
Heme Positive Stools
Acute Blood Loss Anemia
b/l LE Wounds
ASCVD / PAD
Benign Hypertension
Anxiety
h/o syncope from severe orthostatic hypotension
-DM2-with microvascular complications
Anxiety, Insomnia
BPH
Plan:
Follow BMP
cont IS Tac, MMF and Pred, Tac level 5.2 on admit
Blood pressure is better
Blood pressures are reasonable for discharge from renal standpoint and can follow-up with his outpatient nephrology
-
-
Date of Service: October 10, 2024
CC / HPI / ROS
-
Chief Complaint:
SHERRY with CKD h/o KTP
History of Present Illness:
SHERRY/Cr stable at 1.1
BP slightly better though was low last night
[place] out
abx for enterococcus sepsis
Review of Systems:
no n/v
Diarrhea better
no CP
no sob on RA
nonoliguric with lasix
Labs
-
Labs:
WBC 10.3 10^3/uL (4.8-10.8) 10/06/24 06:48
RBC 3.72 10^6/uL (4.70-6.10) L 10/06/24 06:48
Hgb 10.3 g/dL (13.0-18.0) L 10/06/24 06:48
Hct 32.8 % (39.0-52.0) L 10/06/24 06:48
Plt Count 334 10^3/uL (130-400) 10/06/24 06:48
Sodium 137 mmol/L (135-145) 10/10/24 05:30
Potassium 4.9 mmol/L (3.5-5.1) 10/10/24 05:30
Chloride 102 mmol/L (98-107) 10/10/24 05:30
Carbon Dioxide 26 mmol/L (22-30) 10/10/24 05:30
BUN 16 mg/dl (9-20) 10/10/24 05:30
Creatinine 1.0 mg/dL (0.7-1.3) 10/10/24 05:30
eGFR > 60.00 10/10/24 05:30
Glucose 249 mg/dl (70-99) H 10/10/24 05:30
Calcium 8.9 mg/dl (8.4-10.2) 10/10/24 05:30
Phosphorus 3.5 mg/dl (2.5-4.5) 09/26/24 05:35
Dzo-E-Sbqgjvsvchw Pept 8240 pg/ml 09/28/24 15:50
Albumin 2.7 g/dl (3.5-5.0) L 10/01/24 05:42
Physical Exam
-
Vital Signs:
Vital Signs
Temp Pulse Resp BP Pulse Ox
97.5 F 63 15 137/61 96
10/10/24 07:22 10/10/24 07:22 10/10/24 07:22 10/10/24 07:22 10/10/24 07:22
Cardiovascular:: Regular rate and rhythm
Respiratory:: Bilateral: Coarse
Lung Excursion:: Normal
Abdomen:: Nontender and Soft
Bowel Sounds:: Normal
Extremity Edema:: None: Bilateral:
[2024-10-10 15:07] VITALS: BP 140/90
[2024-10-10 16:44] LABS: Glucose - Point of Care 117 mg/dl (70-99)
[2024-10-10] MEDS: NOVOLOG FLEXPEN-LOW RESISTANCE SC (17:07)
[2024-10-10 20:51] LABS: Glucose - Point of Care 208 mg/dl (70-99)
[2024-10-10] MEDS: LANTUS 0.2 UNITS SC (21:33)
[2024-10-10] MEDS: PROCARDIA XL (EXTENDED RELEASE) 30 MG PO (21:40)
[2024-10-10 22:44] VITALS: BP 154/65
[2024-10-11 07:18] LABS: Blood Urea Nitrogen 18 mg/dl (9-20); Calcium 8.9 mg/dl (8.4-10.2); Carbon Dioxide 28 mmol/L (22-30); Chloride 100 mmol/L (98-107); Estimated Creatinine Clearance 65 ml/min; Glucose 266 mg/dl (70-99); Potassium 4.6 mmol/L (3.5-5.1); Sodium 137 mmol/L (135-145); eGFR > 60.00
[2024-10-11 07:38] VITALS: BP 174/73
[2024-10-11 07:56] LABS: Glucose - Point of Care 239 mg/dl (70-99)
--- NOTE | 2024-10-11 08:15 | W.PN.HOSP.TC ---
Today's Communication/Plan
-
Discharge today
Assessment / Plan
Assessment / Plan
Physical Exam
General: Not in acute distress
HEENT: Normocephalic and Atraumatic
Respiratory: Clear to Auscultation Bilaterally
Cardiac: Regular Rhythm and S1/S2
GI: Soft, Nontender and Nondistended
Skin: Other (Right foot in wound dressing )
Neuro: Awake, Alert and Oriented
Psych: Calm and Intact Judgement/Insight
Assessment/Plan
# Severe Sepsis POA 2/ Enterococcal bacteremia and UTI
# Immunocompromised state with history of renal transplant
# Immunocompromised: renal transplant on mycophenolate, tacrolimus
# Uncomplicated Enterococcus faecalis bacteremia
# Enterococcus complicated UTI
Blood culture 2 sets grew Enterococcus faecalis, negative since 09/28
Urine culture also grew enterococci faecalis
Initial CT abdomen pelvis did not show any obstruction/pyelonephritis/abscess
Zosyn was changed to Rocephin and Ampicillin -- completed course of antibiotics yesterday
TTE showed no clear vegetation
# Acute urinary retention
Cont Flomax
No need to cont straight cath per Uro.
Uro was previously consulted per pt request
# Shortness of Breath with Acute Hypoxic Respiratory Insufficiency, likely new-onset HFpEF
# SEVERE ACUTE INTERSTITIAL and ALVEOLAR CARDIOGENIC PULMONARY EDEMA on CT Chest
# Small bilateral pleural effusions with adjacent compressive bibasilar subsegmental atelectasis.
Echo showed normal LVEF, normal right ventricle, normal pericardium
Continue Coreg 6.25 mg PO BID
s/p Lasix IV with improvement in symptoms. Cont PO Lasix 20 mg daily with holding parameter
# Acute blood loss anemia
# Non-bleeding gastric ulcer with no stigmata of bleeding - clean based gastric ulcer
# Gastritis
s/p total of 3 u prbc's this hospitalization
maintain on PPI
GI EGD on 09/28/24: clean based gastric ulcer. Continue ppi po bid for 8 weeks (from 09/28/24). GI office will call him for f/u as he needs a repeat in 8 weeks.
Avoid NSAIDs
Repeat EGD in 8 weeks from 09/28/24
Follow-up biopsy results with gastroenterology
# SHERRY on CKD III
# Metabolic acidosis, resoled
# h/o Renal Transplant
SCr peaked at 1.8, back to baseline at ~1.3
Maintained on tacrolimus/prednisone/mycophenolate. Tacrolimus level 08/19 was 5.8, repeat is 5.2 (from 09/27/24)
Nephrology following.
# Watery diarrhea started 10/07, 08/23 Norovirus, resolved
Was previously given IV fluids which were stopped
symptoms improved
Norovirus contact precautions
# Hypokalemia, replaced and resolved
# Peripheral Artery Disease status post RLE endovascular intervention (08/18/24)
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
# Moderate diffuse subcutaneous edema in both lower legs.
# Recent admission for Right foot transmetatarsal amputation for Right foot dried forefoot gangrene and bilateral subcutaneous debridement
Patient was told to be nonweightbearing right leg and left leg weightbearing for transfers only as of early August 2023
Patient stated that he prefers to go home if allowed to bear weight on his right foot -- I communicated on 10/10/[address] Jermaine Samano and Dr. Andrade Valencia, and according to them, patient can do weight bearing as tolerated to the
RLE, and continue LLE weightbearing for transfers only
Wounds / surgical sites are well appearing without evidence of active infection, erythema, discharge, etc.
Wound Care eval for continued local care.
# Neuropathic (shooting) pain RLE from recent surgery
Continue home Gabapentin on discharge
Cont Tylenol, added tramadol 25 mg PRN
# Benign Hypertension
# HTN urgency
Cont home Coreg 6.25 BID
Nifedipine increased to 60 mg daily and added 30 mg HS
Lisinopril 10 mg added
Cont BP meds with holing parameters
prn Hydralazine
# Diabetes Mellitus
Cont Aspart, adjusted down to 5 units AC
Cont Lantus at 20 units HS (home dose)
Continue accuchecks at home and follow-up with PCP
# Anxiety, Stable.
Continue clonazepam PRN.
# Hyponatremia
monitor
#CAD
#CVA
#YASH on CPAP
#Anxiety/depression
#Macular degeneration
#Narcolepsy
#ADHD
#Appendectomy
#Right AV fistula
#TURP
#Knee arthroscopic surgery
DVT Prophylaxis: SCDs only.
Code Status: Full Code
Dispo: Home with VN
More than 30 minutes spent in discharge including
Final examination of the patient
Summarizing hospital stay
Instructions for continuing care to all relevant caregivers
Preparation of discharge records, prescriptions, and referral forms
Total time spent (in minutes): 45
Anticipated Discharge: Today
Subjective/Interval History
-
Date of Service: October 11, 2024
Patient was seen and examined. He denied any chest pain, SOB, abdominal pain or any other complaints.
Objective Data
-
Labs:
Laboratory Results
10/11/24
06:21
Sodium 137
Potassium 4.6
Chloride 100
Carbon Dioxide 28
BUN 18
Creatinine 1.1
Glucose 266 H
Calcium 8.9
Vital Signs:
Vital Signs
Temp Pulse Resp BP Pulse Ox
97.5 F 62 15 174/73 96
10/11/24 07:38 10/11/24 07:38 10/11/24 07:38 10/11/24 07:38 10/11/24 07:38
I&O
10/10/24 10/11/24 10/12/24
06:59 06:59 06:59
Intake Total 1640 / 1640 240 / 240
Output Total 5 / 1822199 / 2199
Balance -185 / -185 -1959 / -1959
[2024-10-11] MEDS: FLOMAX 0.8 MG PO (08:17)
[2024-10-11] MEDS: DELTASONE 5 MG PO (08:18)
[2024-10-11] MEDS: PROGRAF 2 MG PO (08:18)
[2024-10-11] MEDS: LASIX 20 MG PO (08:18)
[2024-10-11] MEDS: COREG 6.25 MG PO (08:18)
[2024-10-11] MEDS: ZESTRIL 10 MG PO (08:19)
[2024-10-11] MEDS: MYFORTIC DELAYED REL. 720 MG PO (08:19)
[2024-10-11] MEDS: LOW STRENGTH ASPIRIN 81 MG PO (08:19)
[2024-10-11] MEDS: PLAVIX 75 MG PO (08:19)
[2024-10-11] MEDS: NEURONTIN 200 MG PO (08:20)
[2024-10-11] MEDS: LIPITOR 40 MG PO (08:20)
[2024-10-11] MEDS: PROCARDIA XL (EXTENDED RELEASE) 60 MG PO (08:20)
[2024-10-11] MEDS: PROTONIX 40 MG PO (08:20)
[2024-10-11] MEDS: NOVOLOG FLEXPEN 5 UNITS SC ×2 (08:21→12:02)
[2024-10-11] MEDS: NOVOLOG FLEXPEN-LOW RESISTANCE 2 UNITS SC (08:21)
[2024-10-11] MEDS: LAC HYDRIN, AM LACTIN LOTION 1 APPLIC TOPICAL (08:22)
[2024-10-11] MEDS: STERILE WATER FOR INJECTION IV (11:00)
[2024-10-11 11:37] LABS: Glucose - Point of Care 160 mg/dl (70-99)
[2024-10-11] MEDS: NOVOLOG FLEXPEN-LOW RESISTANCE 1 UNITS SC (12:01)
[2024-10-11 13:09] VITALS: BP 101/49
--- NOTE | 2024-10-11 14:41 | CM ---
Addendum entered by Federica Fischer 10/11/24 14:50:
VN notified of discharge date; updated clinicals sent via [employer]
Original Note:
Met with patient; discharge plan discussed; IMM benefit explained; form signed @ [id number]; Reported that son will transport him home
Plan: Discharge to home with resumption of home health services with [facility]
--- NOTE | 2024-10-11 14:55 | W.DCSUMMARY ---
Discharge Summary
Discharge Data
Date of Admission: 09/26/24
Date of Discharge: 10/11/24
Total time spent discharging patient (in min): 45
-
Pending Results: Yes
Additional Pending Results:
Discuss stomach biopsy pathology results with supervisor nutritional yeast
Hospital Course
74 y/o male with past medical history significant for renal transplant on immunosuppressive medications, immunocompromised state, hypertension, type 2 diabetes mellitus, renal transplant, peripheral artery disease and recent right transmetatarsal
amputation, presented complaining of confusion, weakness and fatigue. Patient was diagnosed with sepsis and urinary tract infection. He was started on intravenous antibiotics. Patient was found to have Enterococcus bacteremia and Infectious Disease
was consulted.
Patient also had heme positive stools and started on intravenous PPI medication and gastroenterology was consulted. Patient's hemoglobin did drop to less than 7 during the hospitalization, and he needed a total of 3 units of packed red blood cells
during the hospitalization. Patient had an upper endoscopy which showed non-bleeding gastric ulcer with no stigmata of bleeding, as well as gastritis.
Nephrology was consulted given patient's acute kidney injury in the setting of his history of kidney transplant. Patient was given bicarbonate intravenous fluids given his metabolic acidosis. Patient later was found to have pulmonary edema and
hypoxia from fluid overload (suspected from intravenous fluids and blood transfusions) therefore intravenous fluids were stopped and patient was started on Lasix. Echocardiogram was performed (please see below for results).
Patient's blood pressures were high therefore blood pressure medication regimen needed to be intensified.
Per patient's request, urology was consulted given urinary retention which improved. Patient developed diarrhea and found to have Norovirus, and was started on intravenous fluids. His diarrhea improved.
Case was discussed with his podiatry surgeon Dr. Jermaine Samano who mentioned that patient can do weight bearing as tolerated to the right lower extremity, and continue left lower extremity weightbearing for transfers only. Patient was doing well
and stable for discharge.
Discharge Plan
-
Patient Disposition: Home with Home Care
Discharge Diagnosis/Procedures: # Severe Sepsis Secondary to Enterococcal bacteremia and UTI
# Immunocompromised state with history of renal transplant
# Immunocompromised: renal transplant on mycophenolate, tacrolimus
# Uncomplicated Enterococcus faecalis bacteremia
# Enterococcus complicated UTI
# New-onset heart failure (HFpEF)
# Pulmonary Edema
# Small bilateral pleural effusions with adjacent compressive bibasilar subsegmental atelectasis.
# Blood loss anemia due to gastric ulcer
# Gastritis
# Watery diarrhea due to Norovirus
# Immunocompromised state with history of renal transplant
# Peripheral Artery Disease status post RLE endovascular intervention (08/18/24)
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
# Moderate diffuse subcutaneous edema in both lower legs.
# Recent admission for Right foot transmetatarsal amputation for Right foot dried forefoot gangrene and bilateral subcutaneous debridement
# Mild circumferential urinary bladder wall thickening on hospital imaging
# Acute Urinary Retention
# Moderate diffuse subcutaneous edema in both lower legs on hospital imaging
# SHERRY on CKD III
# Metabolic acidosis, resoled
# History of Renal Transplant
# Benign Hypertension
# Hypertensive urgency
# Diabetes Mellitus
# Anxiety
# Hyponatremia
# CAD
# CVA
# YASH on CPAP
# Anxiety/depression
# Macular degeneration
# Narcolepsy
# ADHD
# Appendectomy
# Right AV fistula
# TURP
# Knee arthroscopic surgery
CT Abdomen and Pelvis without IV Contrast (as per radiologist's report):
'1. SEVERE ACUTE INTERSTITIAL and ALVEOLAR CARDIOGENIC PULMONARY EDEMA.
2. Small bilateral pleural effusions with adjacent compressive bibasilar subsegmental atelectasis.
3. Right lower quadrant renal transplant in place.
4. Chronic bilateral renal disease.
5. Small volume of abdominal and pelvic ascites.
6. Mild hepatomegaly.
7. Mild duodenal wall thickening (possibly peptic ulcer disease).
8. Mild wall thickening in the ascending and transverse colon suggesting a mild colitis.
9. Davenport catheter in the urinary bladder.'
Echocardiogram Results (as per manager heart failure's report):
'Normal left ventricular size and systolic function. No regional wall motion
abnormalities are seen. LV ejection fraction is 65-70% by Proctor's method of
discs. Mild concentric left ventricular hypertrophy.
Mild mitral regurgitation.
Mild tricuspid regurgitation. Estimated pulmonary artery pressure of 50-55
mmHg.
The IVC is dilated and does not collapse.
No clear evidence of vegetation identified, consider JC if clinically
indicated.'
Condition: Fair
Diet: As tolerated, Low Fat, Low Cholesterol, Low Sodium, Diabetic, Carb Controlled and Restrict fluids to 64 oz
Activity: Other activity
Additional Activity: Weight bearing as tolerated to the RLE, and continue LLE weightbearing for transfers only (confirmed with basket hand braider Dr. Samano)
Driving Restrictions: As prior to admission
Wound Care: Wound Care Instructions
Right foot met amp site- Apply Betadine, cover with ABD and wrap with kerlix. Change Q 48 hours
Left Plantar foot wound- Keep covered with silicone border foam. Change Q 48 hours and PRN
Follow up with your Body Line Finisher.
Specialty Instructions: Weigh Daily- Call MD for wt gain/loss 3 lbs overnight/5 lbs in 1 week
Activity Restrictions/Additional Instructions:
Follow up with GI office for repeat EGD in about 6 weeks.
Call gastroenterology office to discuss your biopsy results.
Follow Norovirus contact precautions.
AVOID NSAID MEDICATIONS (E.G. IBUPROFEN, MOTRIN, ALEVE, etc.).
Referrals:
Silvano Foss MD [Active] - in four to six weeks (Hospital Follow-Up)
Ben Suarez, [Family Provider] - in less than 1 week
Frankie Boone MD [Active] - in one to two weeks (mild circumferential urinary bladder wall thickening on hospital CT imaging)
Gagandeep Davenport III, MD [Active] - in three to four weeks (Peripheral Artery Disease follow-up)
Jarad Ambriz MD [Active] - in three to four weeks (Hospital Follow-up)
Jermaine Samano DPM [Active] - in one to two weeks (Needs follow-up, had surgery with Dr. Samano recently)
Leola Villasenor MD [Active] - in two to three weeks (Hospital Follow-Up)
Additional Discharge Medication Instructions: Continue Protonix 40 mg twice daily for about 6 more weeks (until November 23, 2024) and follow-up with Dr. Silvano Foss's (supervisor nutritional yeast's office) to see whether you need to continue it.
To better control you blood pressure, we have:
increased day time nifedipine from 30 to 60 mg daily, added night time nifedipine 30 mg,
added lisinopril 10 mg daily
You have been started with Furosemide 20 mg daily for heart failure
Clonazepam has been reduced to 0.5 mg PO BID PRN (from 1 mg PO BID prn)
Tamsulosin is a new medication to help you urinate.
Premeal Insulin Lispro has been decreased to 5 units premeal to avoid hypoglycemia.
Prescriptions:
New
clonazepam 0.5 mg Tablet
0.5 mg PO BIDPRN PRN (Reason: anxiety) Qty: 3 0RF
tamsulosin 0.4 mg Capsule
0.8 mg PO DAILY Qty: 60 0RF
furosemide 20 mg Tablet
20 mg PO DAILY Qty: 30 0RF
nifedipine 60 mg Tablet Extended Release
60 mg PO DAILY Qty: 30 0RF
pantoprazole 40 mg Tablet,Delayed Release (Dr/Ec)
40 mg PO BID 56 Days Qty: 112 0RF
lisinopril 10 mg Tablet
10 mg PO DAILY Qty: 30 0RF
nifedipine 30 mg Tablet Extended Release
30 mg PO HS Qty: 30 1RF
Continued
carvedilol 6.25 mg Tablet
6.25 mg PO BID
prednisone 5 mg Tablet
5 mg PO DAILY
tacrolimus [Prograf] 1 mg Capsule
2 mg PO Q12H
vibegron 75 mg Tablet
75 mg PO DAILY
mycophenolate sodium 180 mg tablet,delayed release (DR/EC)
720 mg PO BID
atorvastatin [Lipitor] 40 mg Tablet
40 mg PO DAILY
aspirin 81 mg Tablet,Delayed Release (Dr/Ec)
81 mg PO DAILY
omega-3 acid ethyl esters [Lovaza] 1 gram Capsule
2 cap PO BID
magnesium oxide 400 mg magnesium Tablet
400 mg PO DAILY
clopidogrel 75 mg Tablet
75 mg PO DAILY Qty: 90 0RF
acetaminophen 325 mg Tablet
650 mg PO Q4HPRN PRN (Reason: mild pain or temp > 100.4 F) Qty: 100 0RF
insulin glargine [Lantus Solostar U-100 Insulin] 100 unit/mL (3 mL) Insulin Pen
20 unit SC HS Qty: 0 0RF
gabapentin 300 mg Capsule
300 mg PO BIDPRN PRN (Reason: foot pain)
Changed
insulin lispro [Humalog KwikPen Insulin] 100 UNIT/ML insulin pen
5 unit SC AC Qty: 0 0RF
Discontinued
nifedipine 30 mg Tablet Extended Release
30 mg PO DAILY Qty: 30 0RF
cephalexin 500 mg Capsule
500 mg PO QID Qty: 40 0RF
clonazepam 1 MG tablet
1 mg PO BIDPRN PRN (Reason: anxiety) Qty: 4 0RF
Discharge Orders:
Discharge Patient (As Directed); Ordered 10/11/24
Ordered By: Virgilio Main
Discharge Date and Time
Discharge Date/Time: 10/11/24 15:40
Print Language: PASHTO
[2024-10-11 14:57] VITALS: BP 104/47
== END 2024-10-11 15:40 | disposition home health service (06) | DRG 871 ==
LOC: 4 WEST ACU 03:30
PROVIDERS: Emergency Medicine; Hospitalist; Internal Medicine; Physician Assistant; ADMITTING PHYSICIAN Hospitalist; ATTENDING PHYSICIAN Hospitalist; CONSULT PHYSICIAN Internal Medicine; CONSULT PHYSICIAN Internal Medicine Infectious Disease; CONSULT PHYSICIAN Physical Medicine & Rehabilitation; CONSULT PHYSICIAN Specialist; EMERGENCY PHYSICIAN Emergency Medicine; FAMILY PHYSICIAN Internal Medicine; OTHER PHYSICIAN Internal Medicine Cardiovascular Disease
PROC: 30233N1 Transfusion of Nonautologous Red Blood Cells into Peripheral Vein, Percutaneous Approach (ICD-10-PCS; 2024-09-26)
PROC: 0DB68ZX Excision of Stomach, Via Natural or Artificial Opening Endoscopic, Diagnostic (ICD-10-PCS; 2024-09-28)
DX: A41.81 Sepsis due to Enterococcus (principal); G92.8 Other toxic encephalopathy; I50.31 Acute diastolic (congestive) heart failure; K25.4 Chronic or unspecified gastric ulcer with hemorrhage; N39.0 Urinary tract infection, site not specified; D84.821 Immunodeficiency due to drugs; N17.9 Acute kidney failure, unspecified; E87.20 Acidosis, unspecified; D62 Acute posthemorrhagic anemia; E87.1 Hypo-osmolality and hyponatremia; A08.11 Acute gastroenteropathy due to Norwalk agent; I5A Non-ischemic myocardial injury (non-traumatic); N25.81 Secondary hyperparathyroidism of renal origin; T86.19 Other complication of kidney transplant; E11.22 Type 2 diabetes mellitus with diabetic chronic kidney disease; E11.42 Type 2 diabetes mellitus with diabetic polyneuropathy; E11.51 Type 2 diabetes mellitus with diabetic peripheral angiopathy without gangrene; E11.65 Type 2 diabetes mellitus with hyperglycemia; E78.00 Pure hypercholesterolemia, unspecified; F32.A Depression, unspecified; F41.9 Anxiety disorder, unspecified; G47.33 Obstructive sleep apnea (adult) (pediatric); G47.419 Narcolepsy without cataplexy; I25.10 Atherosclerotic heart disease of native coronary artery without angina pectoris; I95.1 Orthostatic hypotension; I11.0 Hypertensive heart disease with heart failure; N18.32 Chronic kidney disease, stage 3b; F90.9 Attention-deficit hyperactivity disorder, unspecified type; R09.02 Hypoxemia; R06.89 Other abnormalities of breathing; E87.6 Hypokalemia; R33.8 Other retention of urine; N40.1 Benign prostatic hyperplasia with lower urinary tract symptoms; I16.0 Hypertensive urgency; B36.9 Superficial mycosis, unspecified; G47.00 Insomnia, unspecified; R65.20 Severe sepsis without septic shock; Z86.61 Personal history of infections of the central nervous system; Z89.431 Acquired absence of right foot; Z87.891 Personal history of nicotine dependence; Z79.899 Other long term (current) drug therapy; Z79.82 Long term (current) use of aspirin; Z79.4 Long term (current) use of insulin; Z79.02 Long term (current) use of antithrombotics/antiplatelets; Z11.52 Encounter for screening for COVID-19; Z79.52 Long term (current) use of systemic steroids; Z79.621 Long term (current) use of calcineurin inhibitor; Z79.624 Long term (current) use of inhibitors of nucleotide synthesis; Z95.820 Peripheral vascular angioplasty status with implants and grafts; Z86.73 Personal history of transient ischemic attack (TIA), and cerebral infarction without residual deficits; Y83.0 Surgical operation with transplant of whole organ as the cause of abnormal reaction of the patient, or of later complication, without mention of misadventure at the time of the procedure
CPT/HCPCS: 88305; 93308; 36430; 51702; 51798; 71046; 74019; 74176; 80048; 80053; 80197; 81003; 81015; 82040; 82728; 82962; 83036; 83540; 83550; 83605; 83735; 83880; 84100; 84484; 85014; 85018; 85025; 85027; 86850; 86900; 86901; 86920; 87040; 87045; 87046; 87077; 87086; 87186; 87205; 87324; 87427; 87449; 87502; 87798; 87811; 88342; 89055; 92610; 93005; 93321; 93325; 93970; 94640; 96361; 96365; 96366; 96367; 96375; 97110; 97163; 97167; 97530; 97535; 97542; 99285; J7030; P9016

== ENCOUNTER 2024-10-15 16:29 | Inpatient (IN) | payer MEDICARE, OTHER, SELFPAY ==
[2024-10-15] VITALS (22 sets, daily range): BP systolic 78–126; BP diastolic 41–92; BMI 28.0
--- NOTE | 2024-10-15 13:31 | ED.GENMED ---
History of Present Illness
General
Chief Complaint: Blood Pressure Problem
Source: patient
Exam Limitations: none
Time Seen by Provider: 10/15/24 13:21
History of Present Illness
History of Present Illness:
See MDM
Past History
Past History
ED Past Medical History: CVA, HTN, Hypercholesterolemia, IDDM, Renal failure (Dialysis and saturday, Right arm fistula), Psychiatric ( anxiety, depression) and Other (Diabetic neuropathy, meningitis,UTI, macular degeneration, diabetic
nephropathy, Narcolepsy, )
ED Past Surgical History: Appendectomy and Other (Right AV fistula. Renal transplant October 2022)
Social History
Tobacco: Former smoker
Alcohol: None
Drug: None
Personal:
Living: with family
Employment: Employed
Family History
Family History: Diabetes
Phy Exam
Physical Exam
Physical Exam:
See MDM
Course
Orders/Labs/Results
Orders:
Orders
10/15/24 13:25
Electrocardiogram (*1) Urgent
Reason for Study: Chest Pain
Cardiac Monitoring- Treatment ONCE
EKG- Treatment ONCE
10/15/24 13:30
Urinalysis Reflex To Culture Urgent
0.9% Sodium Chloride 500 ml [Nss] 500 ml IV BOLUS
10/15/24 13:34
Complete Blood Count/With Diff Urgent
Comprehensive Metabolic Panel Urgent
10/15/24 14:19
0.9% Sodium Chloride 500 ml [Nss] 500 ml IV BOLUS
Abnormal Lab Results
10/15/24
13:34
RBC 4.10 L 10^6/uL
(4.70-6.10)
Hgb 11.3 L g/dL
(13.0-18.0)
Hct 35.8 L %
(39.0-52.0)
MCHC 31.6 L g/dL
(33.0-37.0)
RDW 15.3 H %
(11.5-14.5)
MPV 11.1 H fL
(7.4-10.4)
Absolute Monos (auto) 0.7 H 10^3/uL
(0.1-0.6)
Potassium 5.4 H mmol/L
(3.5-5.1)
BUN 36 H mg/dl
(9-20)
Creatinine 1.8 H mg/dL
(0.7-1.3)
Glucose 170 H mg/dl
(70-99)
AST 15 L U/L
(17-59)
Alkaline Phosphatase 131 H U/L
(38-126)
10/15/24 13:34
10/15/24 13:34
Vital Signs
Initial and Last Documented VS:
Initial Vital Signs
Temp Pulse Resp BP Pulse Ox
97.6 F 65 16 78/41 98
10/15/24 13:20 10/15/24 13:20 10/15/24 13:20 10/15/24 13:20 10/15/24 13:20
Last Documented Vital Signs
Temp Pulse Resp BP Pulse Ox
97.6 F 46 12 78/41 94
10/15/24 13:20 10/15/24 13:30 10/15/24 13:30 10/15/24 13:22 10/15/24 13:30
MDM/Problems Addressed
Differential Diagnosis Includes:
HPI and MDM Narrative:
74-year-old male presenting for evaluation of generalized fatigue. The visiting nurse was dressing his right foot wound. She noticed that he was weak and fatigued. On arrival, patient was hypotensive and bradycardic. Patient had a recent
complicated stay in the hospital where he had an upper GI bleed requiring blood transfusion, developed pulmonary edema after fluid resuscitation for SHERRY and developed norovirus. Patient was also septic at that time. Prior records indicate that he
had an increase in his nifedipine. It is possible that this is related to polypharmacy. However, given his recent medical stay, will obtain basic blood work and urinalysis. Will start IV fluids
Physical exam
General: Weak and fatigued. Intermittently falling asleep
HEENT: protecting airway
Neck: appears supple
CV: No evidence of cyanosis.. Bradycardic
Resp: No accessory muscle use
Abd: Non-distended
Extremities: Right foot is bandaged but no surrounding cellulitic changes no
Neuro: alert
Psych: Flat affect
Skin: Intact
Problems Addressed including Acute and Chronic Conditions affecting care:
1. Hypotension and bradycardia
Acuity: acute
Prognosis: unstable
Details: Potentially related to polypharmacy. Will obtain basic blood work and urinalysis.
Updates
After small IV fluid bolus, blood pressure has improved slightly but he still hypotensive. Will repeat bolus. Hemoglobin stable. Mild SHERRY noted. Will admit with concerns for polypharmacy and SHERRY
Differential Diagnosis (but not limited to): Recurrence of GI bleeding, polypharmacy, UTI
Testing considered: Lactic acid blood culture
Drug therapy (if applicable): OTC meds, please see d/c instruction regarding Rx drugs
Amount and/or Complexity of Data Reviewed
Clinical info obtained from: Patient
External data reviewed: Recent stay where he was septic and had a GI bleed
Labs I independently reviewed (but not limited to): Creatinine elevation, mild hyperglycemia, mild hyperkalemia
Radiology: N/A
Pulse Ox: not hypoxic
EKG independently reviewed: Sinus bradycardia, normal axis, no STEMI
Telephone Cleaner: Sinus bradycardia
Critical Care: N/A
Risk of Complication:
Social Determinants of health: Good social support
Discussed with other providers: Hospitalist
Escalation of Care includes Admit/Obs: Given his persistent bradycardia and hypotension, will admit
Occasional wrong word or 'sound a like' substitutions may have occurred due to the inherent limitations of voice recognition software. Read the chart carefully and recognize, using context, where substitutions have occurred.
*Critical Care Note
Total Time (30-74mins, 75-104mins- exclusive of procedures): Not Applicable
ED Attending Note
-
Portions of this chart may have been created with voice recognition software.� Occasional wrong word or��sound alike� substitutions may have occurred due to the inherent limitations of voice recognition software.
Discharge Plan
Departure
Patient Disposition: Admit
Date of Disposition: 10/15/24
Time of Disposition: 14:29
Admit to: IMU
Presentation/result/management discussed w/ accepting MD/DO: Hospitalist
Discharge Problem:
Hypotension, SHERRY (acute kidney injury), Acute hyperkalemia
Prescriptions:
No Action
carvedilol 6.25 mg Tablet
6.25 mg PO BID
prednisone 5 mg Tablet
5 mg PO DAILY
tacrolimus [Prograf] 1 mg Capsule
2 mg PO Q12H
vibegron 75 mg Tablet
75 mg PO DAILY
mycophenolate sodium 180 mg tablet,delayed release (DR/EC)
720 mg PO BID
atorvastatin [Lipitor] 40 mg Tablet
40 mg PO DAILY
aspirin 81 mg Tablet,Delayed Release (Dr/Ec)
81 mg PO DAILY
omega-3 acid ethyl esters [Lovaza] 1 gram Capsule
2 cap PO BID
magnesium oxide 400 mg magnesium Tablet
400 mg PO DAILY
clopidogrel 75 mg Tablet
75 mg PO DAILY Qty: 90 0RF
acetaminophen 325 mg Tablet
650 mg PO Q4HPRN PRN (Reason: mild pain or temp > 100.4 F) Qty: 100 0RF
insulin glargine [Lantus Solostar U-100 Insulin] 100 unit/mL (3 mL) Insulin Pen
20 unit SC HS Qty: 0 0RF
gabapentin 300 mg Capsule
300 mg PO BIDPRN PRN (Reason: foot pain)
clonazepam 0.5 mg Tablet
0.5 mg PO BIDPRN PRN (Reason: anxiety) Qty: 3 0RF
tamsulosin 0.4 mg Capsule
0.8 mg PO DAILY Qty: 60 0RF
furosemide 20 mg Tablet
20 mg PO DAILY Qty: 30 0RF
nifedipine 60 mg Tablet Extended Release
60 mg PO DAILY Qty: 30 0RF
pantoprazole 40 mg Tablet,Delayed Release (Dr/Ec)
40 mg PO BID 56 Days Qty: 112 0RF
lisinopril 10 mg Tablet
10 mg PO DAILY Qty: 30 0RF
nifedipine 30 mg Tablet Extended Release
30 mg PO HS Qty: 30 1RF
insulin lispro [Humalog KwikPen Insulin] 100 UNIT/ML insulin pen
5 unit SC AC Qty: 0 0RF
Referrals:
UNKNOWN - PT NOT,INTERVIEWE [Family Provider] -
Interventions
Interventions:
*Risk Screen - Suicide Last Done: 10/15/24 13:20
*Neglect/Abuse Screening Last Done: 10/15/24 13:20
*ED- Fall Risk Assessment Last Done: 10/15/24 13:20
*ED COVID-19 Vaccine History Last Done: 10/15/24 13:20
ED- Cardiac Assessment Last Done: 10/15/24 14:09
ED- Neurological Assessment Last Done: 10/15/24 14:09
ED- Pulmonary Assessment Last Done: 10/15/24 14:09
Discharge Date and Time
Print Language: TUVALUAN
[2024-10-15] MEDS: NSS 500 IV ×2 (13:38→14:24)
[2024-10-15 13:51] LABS: % Basophils 0.8 % (0-2); % Eosinophils 2.3 % (0-6); % Immature Granulocytes 0.3 % (0-0.5); % Lymphocytes 20.7 % (20.5-51.1); % Monocytes 7.1 % (1.7-9.3); % Neutrophils 68.8 % (42.2-75.2); Absolute Basophils 0.1 10^3/uL (0-0.2); Absolute Eosinophils 0.2 10^3/uL (0-0.7); Absolute Lymphocytes 1.9 10^3/uL (1.2-3.4); Absolute Monocytes 0.7 10^3/uL (0.1-0.6); Absolute Neutrophils 6.3 10^3/uL (1.4-6.5); Hematocrit 35.8 % (39.0-52.0); Hemoglobin 11.3 g/dL (13.0-18.0); Mean Corp Hgb Conc. 31.6 g/dL (33.0-37.0); Mean Corpuscular Hgb 27.6 pg (27.0-31.0); Mean Corpuscular Volume 87.3 fL (80.0-94.0); Mean Platelet Volume 11.1 fL (7.4-10.4); Nucleated Red Blood Cells % 0 % (-); Platelet Count 203 10^3/uL (130-400); Red Cell Dist. Width 15.3 % (11.5-14.5); White Blood Cell Count 9.2 10^3/uL (4.8-10.8)
[2024-10-15 14:01] LABS: ALT (SGPT) 19 U/L (0-50); AST (SGOT) 15 U/L (17-59); Albumin 4.1 g/dl (3.5-5.0); Alkaline Phosphatase 131 U/L (38-126); Blood Urea Nitrogen 36 mg/dl (9-20); Calcium 9.6 mg/dl (8.4-10.2); Carbon Dioxide 27 mmol/L (22-30); Chloride 107 mmol/L (98-107); Glucose 170 mg/dl (70-99); Potassium 5.4 mmol/L (3.5-5.1); Sodium 142 mmol/L (135-145); Total Bilirubin 0.5 mg/dl (0.2-1.3); Total Protein 6.4 g/dl (6.3-8.2)
--- NOTE | 2024-10-15 15:11 | HPS.HSE ---
Family Physician
-
Family Physician: Ben Suarez
Chief Complaint
-
Dizziness starting yesterday
History of Present Illness
74-year-old male complaining of generalized fatigue since yesterday. He states he has dizziness that worsens when he stands up. He had a visiting nurse today at his home who was dressing his right foot wound while there she took his vitals and
noticed he was hypotensive and bradycardic. He he was also complaining of weakness and fatigue. Upon arrival to the ER his blood pressure was 78/41 with heart rate 46 bpm . He denies fever, chills, cough, urinary symptoms, chest pain,
palpitations, shortness of breath, abdominal pain, nausea, vomiting, diarrhea, rash. He had a recent hospitalization stay from 09/26 - 10/11/2024 for an Upper GI bleed requiring blood transfusion causing pulmonary edema which was treated. He was also
treated for sepsis secondary to UTI. He had Enterococcus bacteremia in the setting of immunocompromise state due to prior renal transplant. He developed also SHERRY and norovirus while inpatient. His blood pressure medication nifedipine was
increased during his stay. Current hypotension could likely be related to increased nifedipine. Other PMH includes renal transplant on immunosuppressive medication/CKD 3, right AV fistula HTN, DM2, PAD, right transmetatarsal amputation, norovirus
while inpatient September 2024, new onset heart failure, PAD status post right lower extremity endovascular intervention 08/10/2024, right foot gangrene status post TMA 08/21/2024, chronic edema bilateral lower legs, right foot transmetatarsal
amputation�dry gangrene, urinary retention, TURP anxiety, hyponatremia, CVA, YASH on CPAP, anxiety/depression, macular degeneration, narcolepsy, ADHD, appendectomy
Medical History
Past Medical History
Past Medical History: Reports Other
Additional Past Medical History:
Diastolic heart failure new Dx September 2024
09/2024 admit sepsis POA 2/2 Enterococcal bacteremia and UTI
Blood culture 2 sets grew Enterococcus faecalis, negative since 3/10 treated with Zosyn> Rocephin and ampicillin
UTI grew enterococci faecalis
Urinary retention
GI bleed requiring 3 units due to gastritis September 2024
CKD 3B
ESRD s/p Renal Transplant
DM-II with Neuropathy and Nephropathy
ASCVD (CAD, PAD)
Hypertension
Orthostatic Hypotension
Autonomic Insufficiency
Narcolepsy
Depression
YASH
Past Surgical History: Reports Other
Additional Past Surgical History:
R Popliteal Artery Angioplasty (08/18/24)
Right Transmetatarsal Amputation (08/21/24)
Bilateral Foot Wound Debridement (08/21/24)
Renal Transplant
RUE AVF
Appendectomy
TTE without vegetation September 2024
Social History
Tobacco: Former Smoker (Quit smoking 15 years ago. Approx 40 pack years total use.)
Alcohol: None
Drug: None
Employment: Disabled
Family History
Family History: Other (Father: Brain Tumor Mother: PUD Sister: Cancer (unknown type))
Allergies / Home Medications
Allergies reflects when Allergies were last updated in [facility].
Home Medications with original date entered in [facility]
Allergy/Medication List:
Allergies
Allergy/AdvReac Type Severity Reaction Status Date / Time
No Known Allergies Allergy Verified 09/25/24 21:15
Home Medications
carvedilol 6.25 mg tablet 6.25 mg PO BID Heart Disease/Condition 07/23/23
prednisone 5 mg tablet 5 mg PO DAILY Anti-Inflammatory 07/23/23
aspirin 81 mg tablet,delayed release 81 mg PO DAILY Blood Clot Prevention/Tx 08/14/24
atorvastatin 40 mg tablet (Lipitor) 40 mg PO DAILY High Cholesterol 08/14/24
magnesium oxide 400 mg PO DAILY Supplement 08/14/24
mycophenolate sodium 180 mg tablet,delayed release 720 mg PO BID IMMUNOSUPPRESSANT 08/14/24
omega-3 acid ethyl esters 1 gram capsule (Lovaza) 2 cap PO BID Supplement 08/14/24
clopidogrel 75 mg tablet 75 mg PO DAILY #90 tabs 08/18/24
insulin glargine 100 unit/mL (3 mL) subcutaneous pen (Lantus Solostar U-100 Insulin) 20 unit (0.2 mL) SC HS diabetes #0 mL 08/25/24
gabapentin 300 mg capsule 300 mg PO HS foot pain 10/04/24
furosemide 20 mg tablet 20 mg PO DAILY #30 tabs 10/07/24
lisinopril 10 mg tablet 10 mg PO DAILY #30 tabs 10/07/24
nifedipine 60 mg tablet,extended release 60 mg PO DAILY #30 tabs 10/07/24
pantoprazole 40 mg tablet,delayed release 40 mg PO BID 8 weeks #112 tabs 10/07/24
tamsulosin 0.4 mg capsule 0.8 mg (2 x 0.4 mg) PO DAILY #60 caps 10/07/24
insulin lispro 100 unit/mL subcutaneous pen (Humalog KwikPen (U-100) Insulin) 5 unit (0.05 mL) SC AC Diabetes #0 mL 10/11/24
nifedipine 30 mg tablet,extended release 30 mg PO HS #30 tabs 10/11/24
clonazepam 1 mg tablet 1 mg PO BIDPRN PRN anxiety 10/15/24
tacrolimus 1 mg capsule, immediate-release 2 mg PO Q12H 10/15/24
Review of Systems
-
History Source: Patient
A 12 point ROS was completed and negative except as noted: Yes
Constitutional: Denies Fever or Chills
EENT: Denies Sore Throat or Runny Nose
Respiratory: Denies Cough or Trouble Breathing
Cardiac: Denies Chest Pain, Diaphoresis, Palpitations or Syncope
Abdomen/GI: Denies Abdominal Pain, Nausea, Vomiting, Diarrhea, Constipated, Bloody Stools or Black Stools
: Denies Dysuria, Frequency, Flank Pain, Incontinence, Difficulty Voiding, Urgency, Bleeding or Dark Urine
Musculoskeletal: Reports Other (Offloading front of foot boot present to right lower extremity); Denies Joint Pain or Edema
Skin: Denies Itching or Rash
Neurological: Reports Dizzy; Denies Headache or Weakness
Endocrine: Reports No Symptoms
Hematologic/Lymphatic: Reports No Symptoms
Psych: Reports Calm
Physical Exam
Vital Signs
Vital Signs
Temp Pulse Resp BP Pulse Ox
97.6 F 46 12 78/41 94
10/15/24 13:20 10/15/24 13:30 10/15/24 13:30 10/15/24 13:22 10/15/24 13:30
Physical Exam
General: Comfortable and Conversant; No Pain, Fever or Chills
HEENT: NormoCephalic, Anicteric, PERRLA, [place] Conjunctivae, No Ptosis and Other (Dry oral mucosa)
Respiratory: Clear; No Wheezes, Rales or Rhonchi
Cardiac: S1/S2 and Bradycardia (Sinus 45 bpm); No Murmur, Rub or Gallop
Breast: Deferred by me
GI: Soft, Non Tender, Non Distended and Normal Bowel Sounds
Rectal: Deferred by Provider
Genito-urinary: Deferred by me
Musculoskeletal: No Clubbing, No Cyanosis, No Edema and Other (Offloading front of foot boot present to right lower extremity)
Skin: Warm, Dry and IV/Catheter Site (Right upper extremity AV fistula present); No Rash
Neuro: AO x 3, No Motor Deficits, Cranial Nerves Intact and No Sensory Deficits; No Slurred Speech, Facial Droop, Tremors or Sedated
Laboratory Results
-
10/15/24 13:34
10/15/24 13:34
Laboratory Results
Total Bilirubin 0.5 mg/dl (0.2-1.3) 10/15/24 13:34
AST 15 U/L (17-59) L 10/15/24 13:34
ALT 19 U/L (0-50) 10/15/24 13:34
Alkaline Phosphatase 131 U/L (38-126) H 10/15/24 13:34
Data Reviewed
-
Lab Data: Labs Reviewed by me
Impression/Plan
-
Impression/plan:
Admit to IMU
#Symptomatic hypotension likely secondary to recent nifedipine medication increase
BP 78/41 > 87/51-status post 1 L IV NSS in ER
Hold Coreg 6.25 BID
Hold nifedipine increased to 60 mg daily and added 30 mg HS September 2024
Hold lisinopril 10 mg added September 2024 admit
-Bedrest per attending
#Symptomatic bradycardia
HR 46 bpm
-Hold Coreg 6.25 BID
-
# Recurrent SHERRY on CKD III
# History of RENAL TRANSPLANT on immunosuppressants
# Right arm AV fistula
Creatinine 1.8 was 1.1 on 10/11/2024 discharge baseline is 1.3
- cont Tacrolimus/Prednisone/Mycophenolate. Tacrolimus level 08/19 was 5.8, repeat is 5.2 (from 09/27/24)
-Consult Nephro
-Hold lisinopril 10 mg added recent admission to BP regimen September 2024 admit
#Hyperkalemia�mild in setting of CKD 3/renal transplant
K5.4
# 09/2024 admit sepsis POA 2/ Enterococcal bacteremia and UTI
Blood culture 2 sets grew Enterococcus faecalis, negative since 09/28 treated with Zosyn> Rocephin and ampicillin
Urine culture also grew enterococci faecalis
TTE without vegetation September 2024
# Recent urinary retention
-Patient currently voiding without difficulty
-Hold Flomax 0.8 mg due to current hypotension
-Monitor urine output
#Chronic heart failure preserved EF-new Dx September 2024
Recent pulm edema post blood transfusion for GI bleed and IV fluids-was diuresed with Lasix
I/O, daily weights
-Hold Lasix 20 mg daily
#Blood loss anemia s/p 3 units PRBC September 2024 admit
Hgb stable 11.3
-Continue PPI
-Was DC'd on 10/11/2024 with plan follow-up GI 8 weeks
EGD: Showed nonbleeding gastric ulcer with no stigmata of bleeding as well as gastritis
# Recent norovirus 10/07/2024 resolved while inpatient
-No current diarrhea
# ASCVD / PAD, Stable.
# Moderate diffuse subcutaneous edema in both lower legs.
# Recent admission for Right foot transmetatarsal amputation for Right foot- dried forefoot gangrene and bilateral subcutaneous debridement
Patient was told to be nonweightbearing right leg and left leg weightbearing for transfers only as of early August 2023
-Patient follows with podiatry Dr. Andrade Valencia
# Neuropathic pain RLE from recent surgery
-Continue gabapentin 300 mg twice daily as needed patient takes only 300 mg at bedtime
-Cont Tylenol
# IDDM, Stable.
-Cont Aspart, recent adjusted down to 5 units AC
-Cont Lantus at 20 units HS (home dose)
-Accu-Cheks with hypoglycemia coverage
# Anxiety, Stable.
-Continue clonazepam 1 mg twice daily PRN.
# Hyponatremia-resolved
NA 142
Other PMH:
CVA hx
YASH on CPAP
macular degeneration
narcolepsy
ADHD
DVT Prophylaxis: SCDs only.
Code Status: Full Code
--- NOTE | 2024-10-15 16:52 | W.CON.NEPH ---
Consultation
-
Date/Time Consultation Requested: October 15, 2024 5 at 1600 hrs.
Date/Time Consultation Performed: October 15, 2024 at 1700 hrs.
Requesting Provider: Dr. Rust
Performing Provider: Dr. Watt
Reason for Consultation: Acute kidney injury
Medical History
-
Chief Complaint: Acute kidney
History of Present Illness:
74-year-old male history of ESRD from diabetic nephropathy s/p renal transplant (donor daughter) in 10/2022 at [facility] [place], MMF, prednisone and monthly Belatacept for ACR in biopsy in 04/2023 last dose in Dec, labile BPs with significant
orthostatic hypotension with autonomic dysfucntion related to diabetes, hyperlipidemia, insulin-dependent diabetes, recent R transmet amputation presents to ED on 09/25 complaining of confusion, weakness and fatigue. Patient was discharged on
October 11 was admitted for diarrhea and norovirus. He had heme positive stools as well was transfused and upper endoscopy showed gastric ulcer. Simultaneously he was treated for sepsis and a urine infection Enterococcus.
His cr baseline was at 1.3-1.5. Although discharged a few days ago with a creatinine of 1.1. He follows with with Dr Villasenor.
He presents today with hypotension systolic blood pressure 70s. And a creatinine of 1.8.
Renal consult for acute kidney injury and transplant management
Past Medical History
1. ESRD due to diabetes. s/p LRTxp 10/2022 at [facility]
2. Diabetes mellitus, type 2 with complications
3. Orthostasis.
4. Right AV fistula.
5. Autonomic insufficiency
6. ADHD.
7. Sleep apnea.
8. Hyperlipidemia.
9. BPH.
10. Elevated PSA.
11. Secondary hyperparathyroidism.
Past Surgical History: Other (Appendectomy Laser treatment of both eyes Right upper extremity speech slow reaction Right upper extremity fistulogram Right upper extremity fistula revision, kidney transplant, TURP)
Social History
Tobacco: Non-Smoker
Alcohol: None
Personal:
Living: With Family
Family History
Family History: Not Pertinent
Allergies / Home Medications
Allergy/AdvReac Type Severity Reaction Status Date / Time
No Known Allergies Allergy Verified 09/25/24 21:15
�Medication �Instructions �Recorded �Confirmed �Type
carvedilol 6.25 mg tablet 6.25 mg PO BID Heart 07/23/23 10/15/24 History
Disease/Condition
prednisone 5 mg tablet 5 mg PO DAILY Anti-Inflammatory 07/23/23 10/15/24 History
aspirin 81 mg tablet,delayed 81 mg PO DAILY Blood Clot 08/14/24 10/15/24 History
release Prevention/Tx
atorvastatin 40 mg tablet (Lipitor) 40 mg PO DAILY High Cholesterol 08/14/24 10/15/24 History
magnesium oxide 400 mg PO DAILY Supplement 08/14/24 10/15/24 History
mycophenolate sodium 180 mg 720 mg PO BID IMMUNOSUPPRESSANT 08/14/24 10/15/24 History
tablet,delayed release
omega-3 acid ethyl esters 1 gram 2 cap PO BID Supplement 08/14/24 10/15/24 History
capsule (Lovaza)
clopidogrel 75 mg tablet 75 mg PO DAILY #90 tabs 08/18/24 10/15/24 Rx
insulin glargine 100 unit/mL (3 20 unit (0.2 mL) SC HS diabetes 08/25/24 10/15/24 Rx
mL) subcutaneous pen (Lantus #0 mL
Solostar U-100 Insulin)
gabapentin 300 mg capsule 300 mg PO HS foot pain 10/04/24 10/15/24 History
furosemide 20 mg tablet 20 mg PO DAILY #30 tabs 10/07/24 10/15/24 Rx
lisinopril 10 mg tablet 10 mg PO DAILY #30 tabs 10/07/24 10/15/24 Rx
nifedipine 60 mg tablet,extended 60 mg PO DAILY #30 tabs 10/07/24 10/15/24 Rx
release
pantoprazole 40 mg tablet,delayed 40 mg PO BID 8 weeks #112 tabs 10/07/24 10/15/24 Rx
release
tamsulosin 0.4 mg capsule 0.8 mg (2 x 0.4 mg) PO DAILY #60 10/07/24 10/15/24 Rx
caps
insulin lispro 100 unit/mL 5 unit (0.05 mL) SC AC Diabetes #0 10/11/24 10/15/24 Rx
subcutaneous pen (Humalog KwikPen mL
(U-100) Insulin)
nifedipine 30 mg tablet,extended 30 mg PO HS #30 tabs 10/11/24 10/15/24 Rx
release
clonazepam 1 mg tablet 1 mg PO BIDPRN PRN anxiety 10/15/24 10/15/24 History
tacrolimus 1 mg capsule, 2 mg PO Q12H 10/15/24 10/15/24 History
immediate-release
Review of Systems
-
No chest pain or shortness of breath somewhat lethargic
All other systems: Negative unless noted
Physical Exam
Vital Signs
Vital Signs
Temp Pulse Resp BP Pulse Ox
97.6 F 51 13 94/51 98
10/15/24 13:20 10/15/24 16:30 10/15/24 16:30 10/15/24 16:30 10/15/24 16:30
Lab Results
WBC 9.2 10^3/uL (4.8-10.8) 10/15/24 13:34
RBC 4.10 10^6/uL (4.70-6.10) L 10/15/24 13:34
Hgb 11.3 g/dL (13.0-18.0) L 10/15/24 13:34
Hct 35.8 % (39.0-52.0) L 10/15/24 13:34
Plt Count 203 10^3/uL (130-400) 10/15/24 13:34
Sodium 142 mmol/L (135-145) 10/15/24 13:34
Potassium 5.4 mmol/L (3.5-5.1) H 10/15/24 13:34
Chloride 107 mmol/L (98-107) 10/15/24 13:34
Carbon Dioxide 27 mmol/L (22-30) 10/15/24 13:34
BUN 36 mg/dl (9-20) H 10/15/24 13:34
Creatinine 1.8 mg/dL (0.7-1.3) H 10/15/24 13:34
eGFR 39.50 10/15/24 13:34
Glucose 170 mg/dl (70-99) H 10/15/24 13:34
Calcium 9.6 mg/dl (8.4-10.2) 10/15/24 13:34
Albumin 4.1 g/dl (3.5-5.0) 10/15/24 13:34
Physical Exam
General: Awake, Alert and No Distress
HEENT: EOMI, Anicteric, Facial Symmetry and No JVD
Respiratory: Clear, Normal Excursion and Nonlabored Respirations
Cardiac: S1/S2 and Regular Rate/Rhythm
Breast: Deferred by me
Abdomen: Soft, Nontender, Nondistended and Other (no graft tenderness)
Musculoskeletal: No Cyanosis, No Edema and Other (right TMA healing)
Skin: No Rash
Neuro: Nonfocal/Grossly Intact
Psych: Appropriate
Data Reviewed
-
Labs: Labs Reviewed by me, Discussed with Physician and Discussed with Patient
Assessment/Plan
-
74-year-old male history of ESRD from diabetic nephropathy s/p renal transplant (donor daughter) in 10/2022 at [facility] [place], MMF, prednisone and monthly Belatacept for ACR in biopsy in 04/2023 last dose in Dec, labile BPs with significant
orthostatic hypotension with autonomic dysfucntion related to diabetes, hyperlipidemia, insulin-dependent diabetes, recent R transmet amputation presents to ED on 09/25 complaining of confusion, weakness and fatigue. Patient was discharged on
October 11 was admitted for diarrhea and norovirus. He had heme positive stools as well was transfused and upper endoscopy showed gastric ulcer. Simultaneously he was treated for sepsis and a urine infection Enterococcus.
His cr baseline was at 1.3-1.5. Although discharged a few days ago with a creatinine of 1.1. He follows with with Dr Villasenor.
He presents today with hypotension systolic blood pressure 70s. And a creatinine of 1.8.
Renal consult for acute kidney injury and transplant management
Assessment:
Acute kidney injury creatinine of 1.9.
Hypotension
History of enterococcal bacteremia and UTI
SHERRY on CKD III-baseline cr 1.3-1.5
ESRD-D nephropathy s/p LR KTP(daughter) 10/2022 at [facility]
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
Heme Positive Stools previous admissions in September 2024
b/l LE Wounds
ASCVD / PAD
Benign Hypertension
Anxiety
h/o syncope from severe orthostatic hypotension
-DM2-with microvascular complications
Anxiety, Insomnia
BPH
Plan:
Creatinine 1.9 on admission. At 1.1 on discharge in October 11.
Secondary to hemodynamics and hypotension. Agree with holding antihypertensive medications as well as a beta-norman for bradycardia.
Continue immunosuppressive therapy tacrolimus/prednisone/mycophenolate. Most recent tacrolimus level 5.8 as of September 27, 2024
Will continue IV fluids status post 1 L.
I will run normal saline at 100 cc/h.
A.m. lab
--- NOTE | 2024-10-15 17:48 | W.PN.UPDATE ---
Update Note
Progress Note Update
This note serves as an addendum to the H&P by ANDREA Davey, on 10/15/24.
History of Presenting Illness
74 y/o male with past medical history significant for renal transplant on immunosuppressive medications, immunocompromised state, hypertension, type 2 diabetes mellitus, renal transplant, peripheral artery disease and recent right transmetatarsal
amputation, presented with fatigue. He had a visiting nurse today at his home who was dressing his right foot wound and when she took his vitals she noticed that he was hypotensive and bradycardic. Patient was also complaining of weakness and
fatigue. Upon arrival to the ER his blood pressure was 78/41 with heart rate 46 bpm. He denied fever, chills, cough, urinary symptoms, chest pain, palpitations, shortness of breath, abdominal pain, nausea, vomiting, diarrhea, rash. He had a recent
hospitalization stay from 09/26 - 10/11/2024 for an Upper GI bleed requiring blood transfusion causing pulmonary edema which was treated. He was also treated for sepsis secondary to UTI. He had Enterococcus bacteremia in the setting of immunocompromise
state due to prior renal transplant. He developed also SHERRY and norovirus while inpatient at that time. His blood pressure medication nifedipine was increased during his stay. He is on Coreg at home. When I saw him later in the IMU his heart rate had
improved to about 60 bpm and blood pressure had improved to systolic 111 mmHg.
Vital Signs
Hypotensive with SBP in the 70s, and HR in the 40s on admission
Later improved significantly as above
Physical Exam
General: Not in acute distress
HEENT: Normocephalic, Moist Mucosal Membranes
Respiratory: Clear to Auscultation Bilaterally
Cardiac: S1/S2 and Bradycardia -- later improved
GI: Soft, Non Tender, Non Distended and Normal Bowel Sounds
Musculoskeletal: No Cyanosis. No Edema and Other (Offloading front of foot boot present to right lower extremity)
Skin: Warm, Dry.
Neuro: AAO x 3, No Motor Deficits, Cranial Nerves Intact and No Sensory Deficits;
Assessment/Plan
#Symptomatic hypotension likely secondary to recent nifedipine medication increase
BP 78/41 > 87/51-status post 1 L IV NSS in ER
Hold Coreg 6.25 BID
Hold nifedipine
Hold lisinopril
Bedrest
Monitor in IMU for now
#Symptomatic bradycardia
-Hold home Coreg 6.25 BID
-Monitor in IMU
-Given CHF history and sudden-onset symptomatic bradycardia outpatient, consult cardiology
# Immunocompromised state with history of renal transplant
# Immunocompromised: renal transplant on mycophenolate, tacrolimus
# Recent Severe Sepsis POA 2/ Enterococcal bacteremia and UTI
# Recent Uncomplicated Enterococcus faecalis bacteremia
# Recent Enterococcus complicated UTI
-Completed course of antibiotics from a recent hospitalization
# Recent acute urinary retention
Holding Flomax due to symptomatic hypotension
Bladder scans protocol
# Recent Shortness of Breath with Acute Hypoxic Respiratory Insufficiency, likely new-onset HFpEF
# Recent SEVERE ACUTE INTERSTITIAL and ALVEOLAR CARDIOGENIC PULMONARY EDEMA on CT Chest
# Recent Small bilateral pleural effusions with adjacent compressive bibasilar subsegmental atelectasis.
-From a recent hospitalization
-Hold home Lasix for now
# Acute blood loss anemia
# Non-bleeding gastric ulcer with no stigmata of bleeding - clean based gastric ulcer
# Gastritis
From recent hospitalization
s/p total of 3 u prbc's on recent hospitalization
maintain on PPI
GI EGD on 09/28/24: clean based gastric ulcer. Continue ppi po bid for 8 weeks (from 09/28/24). GI office will call him for f/u as he needs a repeat in 8 weeks.
Avoid NSAIDs
Repeat EGD in 8 weeks from 09/28/24
Follow-up biopsy results with gastroenterology
# SHERRY on CKD III
# History of Renal Transplant
SCr peaked at 1.8, back to baseline at ~1.3
Maintained on tacrolimus/prednisone/mycophenolate. Tacrolimus level 08/19 was 5.8, repeat is 5.2 (from 09/27/24)
Nephrology consulted, appreciate their evaluation and recommendations
#Mild Hyperkalemia
# Watery diarrhea started 10/07, 2/ Norovirus, resolved
Was previously given IV fluids which were stopped
symptoms improved
# Hypokalemia, replaced and resolved
# Peripheral Artery Disease status post RLE endovascular intervention (08/18/24)
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
# Moderate diffuse subcutaneous edema in both lower legs.
# Recent admission for Right foot transmetatarsal amputation for Right foot dried forefoot gangrene and bilateral subcutaneous debridement
Patient was told to be nonweightbearing right leg and left leg weightbearing for transfers only as of early August [address] Jermaine Samano and Dr. Andrade Valencia, patient can do weight bearing as tolerated to the RLE, and continue LLE weightbearing for transfers only
Wounds / surgical sites are well appearing without evidence of active infection, erythema, discharge, etc.
Wound Care eval for continued local care.
# Neuropathic (shooting) pain RLE from recent surgery
Continue home Gabapentin on discharge
Cont Tylenol, added tramadol 25 mg PRN
# Benign Hypertension
# History lucinda HTN urgency
Hold home Coreg 6.25 BID, Nifedipine and Lisinopril 10 mg as above
# Diabetes Mellitus
Continue Insulin
Continue accuchecks at home and follow-up with PCP
# Anxiety, Stable.
Continue clonazepam PRN.
# Hyponatremia
monitor
#CAD
#CVA
#YASH on CPAP
#Anxiety/depression
#Macular degeneration
#Narcolepsy
#ADHD
#Appendectomy
#Right AV fistula
#TURP
#Knee arthroscopic surgery
DVT Prophylaxis: SCDs. Heparin subq
Code Status: Full Code
Symptomatic bradycardia and hypotension qualifies as a high risk encounter.
[2024-10-15] MEDS: NSS 1000 IV (18:17)
[2024-10-15] MEDS: NOVOLOG FLEXPEN SC (18:38)
--- NOTE | 2024-10-15 18:38 | PTCARENOTE ---
Pt received from ED via stretcher. Admission completed. IVF initiated per orders. Assessment as documented. Call feng within reach. Bed alarm in place for safety.
[2024-10-15 18:47] LABS: Glucose - Point of Care 78 mg/dl (70-99)
[2024-10-15 21:16] LABS: Glucose - Point of Care 151 mg/dl (70-99)
[2024-10-15] MEDS: MYFORTIC DELAYED REL. 720 MG PO (21:19)
[2024-10-15] MEDS: NEURONTIN 300 MG PO (21:20)
[2024-10-15] MEDS: HEPARIN 5000 UNITS SC (21:20)
[2024-10-15] MEDS: PROGRAF 2 MG PO (21:20)
[2024-10-15] MEDS: PROTONIX 40 MG PO (21:20)
[2024-10-15] MEDS: LANTUS 0.2 UNITS SC (21:26)
[2024-10-15 21:37] LABS: Glucose - Point of Care 168 mg/dl (70-99)
[2024-10-15 21:40] LABS: Troponin I 0.015 ng/ml
[2024-10-16] VITALS (12 sets, daily range): BP systolic 113–179; BP diastolic 55–92; BMI 28.5
--- NOTE | 2024-10-16 01:08 | PTCARENOTE ---
Caring for pt overnight. aaox3, pleasant. NSR on monitor. Remains RA. VSS. IVF running. Meds brought in by family and pharmacy at bedside reviewing them. Denies pain or SOB. NO other issues at this time. Will monitor.
[2024-10-16 04:04] LABS: % Basophils 0.7 % (0-2); % Eosinophils 2.4 % (0-6); % Immature Granulocytes 0.2 % (0-0.5); % Lymphocytes 22.3 % (20.5-51.1); % Monocytes 6.9 % (1.7-9.3); % Neutrophils 67.5 % (42.2-75.2); Absolute Basophils 0.1 10^3/uL (0-0.2); Absolute Eosinophils 0.2 10^3/uL (0-0.7); Absolute Monocytes 0.6 10^3/uL (0.1-0.6); Hematocrit 33.6 % (39.0-52.0); Hemoglobin 10.4 g/dL (13.0-18.0); Mean Corpuscular Hgb 27.4 pg (27.0-31.0); Mean Corpuscular Volume 88.7 fL (80.0-94.0); Mean Platelet Volume 10.7 fL (7.4-10.4); Nucleated Red Blood Cells % 0 % (-); Platelet Count 177 10^3/uL (130-400); Red Blood Cell Count 3.79 10^6/uL (4.70-6.10); Red Cell Dist. Width 15.1 % (11.5-14.5); White Blood Cell Count 8.9 10^3/uL (4.8-10.8)
[2024-10-16 04:26] LABS: Troponin I < 0.012 ng/ml
[2024-10-16] MEDS: NSS 1000 IV (04:36)
[2024-10-16 06:02] LABS: Urine Albumin 2+ (Neg - Trace); Urine Bilirubin Negative (Negative); Urine Character Clear (Clear); Urine Color Yellow; Urine Glucose 3+ (Negative); Urine Ketone Negative (Negative); Urine Leukocyte Negative (Negative); Urine Nitrite Negative (Negative); Urine Occult Blood Negative (Negative); Urine Urobilinogen Negative (Neg - 1+)
[2024-10-16 06:17] LABS: ALT (SGPT) 16 U/L (0-50); AST (SGOT) 14 U/L (17-59); Albumin 3.4 g/dl (3.5-5.0); Alkaline Phosphatase 120 U/L (38-126); Blood Urea Nitrogen 35 mg/dl (9-20); Carbon Dioxide 25 mmol/L (22-30); Chloride 110 mmol/L (98-107); Estimated Creatinine Clearance 46 ml/min; Glucose 265 mg/dl (70-99); Potassium 5.5 mmol/L (3.5-5.1); Sodium 142 mmol/L (135-145); Total Bilirubin 0.4 mg/dl (0.2-1.3); Total Protein 5.6 g/dl (6.3-8.2)
[2024-10-16 06:32] LABS: Urine Red Blood Cell 0-2 /HPF (0-2); Urine Squamous Cell 0-2 /LPF (Few)
[2024-10-16 06:33] LABS: Urine Bacteria Few (Negative)
--- NOTE | 2024-10-16 07:32 | W.PN.HOSP.TC ---
Today's Communication/Plan
-
See plan
Transfer to telemetry
Assessment / Plan
Assessment / Plan
Physical Exam
General: Not in acute distress
HEENT: Normocephalic, Moist Mucosal Membranes
Respiratory: Clear to Auscultation Bilaterally
Cardiac: S1/S2 and Bradycardia -- later improved
GI: Soft, Non Tender, Non Distended and Normal Bowel Sounds
Musculoskeletal: No Cyanosis. No Edema and Other (Offloading front of foot boot present to right lower extremity)
Skin: Warm, Dry.
Neuro: AAO x 3, No Motor Deficits, Cranial Nerves Intact and No Sensory Deficits;
Assessment/Plan
#Symptomatic hypotension
BP 78/41 > 87/51-status post 1 L IV NSS in ER
Resume Coreg (but at half the original dose) as per nephrology
Hold nifedipine
Hold lisinopril
#Symptomatic bradycardia - RESOLVED
-Resolved with holding Coreg 6.25 BID --> but nephrology advised to resume Coreg at half dose so resumed it (also okay per cardio to do half of original dose)
-No need for cardiology consult, they mentioned patient does not have heart block and HR is now normal so no cardiology consultation needed
# Immunocompromised state with history of renal transplant
# Immunocompromised: renal transplant on mycophenolate, tacrolimus
# Recent Severe Sepsis POA 2/2 Enterococcal bacteremia and UTI
# Recent Uncomplicated Enterococcus faecalis bacteremia
# Recent Enterococcus complicated UTI
-Completed course of antibiotics from a recent hospitalization
# Recent acute urinary retention
Holding Flomax due to symptomatic hypotension
Bladder scans protocol
# Recent Shortness of Breath with Acute Hypoxic Respiratory Insufficiency, likely new-onset HFpEF
# Recent SEVERE ACUTE INTERSTITIAL and ALVEOLAR CARDIOGENIC PULMONARY EDEMA on CT Chest
# Recent Small bilateral pleural effusions with adjacent compressive bibasilar subsegmental atelectasis.
-From a recent hospitalization
-Hold home Lasix for now
# Acute blood loss anemia
# Non-bleeding gastric ulcer with no stigmata of bleeding - clean based gastric ulcer
# Gastritis
From recent hospitalization
s/p total of 3 u prbc's on recent hospitalization
maintain on PPI
GI EGD on 09/28/24: clean based gastric ulcer. Continue ppi po bid for 8 weeks (from 09/28/24). GI office will call him for f/u as he needs a repeat in 8 weeks.
Avoid NSAIDs
Repeat EGD in 8 weeks from 09/28/24
Follow-up biopsy results with gastroenterology
# SHERRY on CKD III
# History of Renal Transplant
SCr peaked at 1.8, back to baseline at ~1.3
Maintained on tacrolimus/prednisone/mycophenolate. Tacrolimus level 08/19 was 5.8, repeat is 5.2 (from 09/27/24)
Nephrology consulted, appreciate their evaluation and recommendations
#Mild Hyperkalemia
# Watery diarrhea started 10/07, 2/ Norovirus, resolved
Was previously given IV fluids which were stopped
symptoms improved
# Hypokalemia, replaced and resolved
# Peripheral Artery Disease status post RLE endovascular intervention (08/18/24)
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
# Moderate diffuse subcutaneous edema in both lower legs.
# Recent admission for Right foot transmetatarsal amputation for Right foot dried forefoot gangrene and bilateral subcutaneous debridement
Patient was told to be nonweightbearing right leg and left leg weightbearing for transfers only as of early August [address] Jermaine Samano and Dr. Andrade Valencia, patient can do weight bearing as tolerated to the RLE, and continue LLE weightbearing for transfers only
Wounds / surgical sites are well appearing without evidence of active infection, erythema, discharge, etc.
Wound Care eval for continued local care.
# Neuropathic (shooting) pain RLE from recent surgery
Continue home Gabapentin on discharge
Cont Tylenol, added tramadol 25 mg PRN
# Benign Hypertension
# History lucinda HTN urgency
Continue Coreg (but at half of home dose) as per nephro
Hold Nifedipine and Lisinopril 10 mg as above
# Diabetes Mellitus
Continue Insulin
Continue accuchecks at home and follow-up with PCP
# Anxiety, Stable.
Continue clonazepam PRN.
# Hyponatremia
monitor
#CAD
#CVA
#YASH on CPAP
#Anxiety/depression
#Macular degeneration
#Narcolepsy
#ADHD
#Appendectomy
#Right AV fistula
#TURP
#Knee arthroscopic surgery
DVT Prophylaxis: SCDs. Heparin subq
Code Status: Full Code
Anticipated Discharge: 24 - 48 hours
Subjective/Interval History
-
Date of Service: October 16, 2024
Patient was seen and examined. He denied any chest pain or shortness of breath.
Objective Data
-
Labs:
Laboratory Results
10/16/24 10/16/24
03:51 05:47
WBC 8.9
Hgb 10.4 L
Hct 33.6 L
Plt Count 177
Sodium Cancelled 142
Potassium Cancelled 5.5 H
Chloride Cancelled 110 H
Carbon Dioxide Cancelled 25
BUN Cancelled 35 H
Creatinine Cancelled 1.6 H
Glucose Cancelled 265 H
Calcium Cancelled 9.0
Total Bilirubin Cancelled 0.4
AST Cancelled 14 L
ALT Cancelled 16
Alkaline Phosphatase Cancelled 120
Vital Signs:
Vital Signs
Temp Pulse Resp BP Pulse Ox
98.8 F 61 14 157/79 99
10/16/24 05:44 10/16/24 06:00 10/16/24 06:00 10/16/24 06:00 10/16/24 06:00
I&O
10/15/24 10/16/24 10/17/24
06:59 06:59 06:59
Output Total 900 / 900
Balance -900 / -900
[2024-10-16 08:33] LABS: Glucose - Point of Care 308 mg/dl (70-99)
[2024-10-16] MEDS: HEPARIN 5000 UNITS SC ×2 (09:03→20:13)
[2024-10-16] MEDS: ASPIR LOW (ENTERIC COATED) 81 MG PO (09:04)
[2024-10-16] MEDS: DELTASONE 5 MG PO (09:04)
[2024-10-16] MEDS: LIPITOR 40 MG PO (09:04)
[2024-10-16] MEDS: PROTONIX 40 MG PO ×2 (09:04→20:13)
[2024-10-16] MEDS: PLAVIX 75 MG PO (09:04)
[2024-10-16] MEDS: MAG-TAB SR 84 MG PO (09:04)
[2024-10-16] MEDS: MYFORTIC DELAYED REL. 720 MG PO ×2 (09:04→20:14)
[2024-10-16] MEDS: PROGRAF 2 MG PO ×2 (09:05→20:13)
[2024-10-16] MEDS: NOVOLOG FLEXPEN 5 UNITS SC ×3 (09:05→17:54)
--- NOTE | 2024-10-16 10:05 | W.PN.NEPH.PH ---
Today's Communication / Plan
-
Follow BMP
Holding Lasix and URSULA inhibitor
Add back carvedilol
Can hold further IV fluids after current bag complete
Assessment/Plan
-
74-year-old male history of ESRD from diabetic nephropathy s/p renal transplant (donor daughter) in 10/2022 at [place] on [place], MMF, prednisone and monthly Belatacept for ACR in biopsy in 04/2023 last dose in Dec, labile BPs with significant
orthostatic hypotension with autonomic dysfucntion related to diabetes, hyperlipidemia, insulin-dependent diabetes, recent R transmet amputation presents to ED on 09/25 complaining of confusion, weakness and fatigue. Patient was discharged on
October 11 was admitted for diarrhea and norovirus. He had heme positive stools as well was transfused and upper endoscopy showed gastric ulcer. Simultaneously he was treated for sepsis and a urine infection Enterococcus.
His cr baseline was at 1.3-1.5. Although discharged a few days ago with a creatinine of 1.1. He follows with with Dr Villasenor.
He presents today with hypotension systolic blood pressure 70s. And a creatinine of 1.8.
Renal consult for acute kidney injury and transplant management
Assessment:
Acute kidney injury creatinine of 1.9.
Hypotension
History of enterococcal bacteremia and UTI
SHERRY on CKD III-baseline cr 1.3-1.5
ESRD-D nephropathy s/p LR KTP(daughter) 10/2022 at [place]
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
Heme Positive Stools previous admissions in September 2024
b/l LE Wounds
ASCVD / PAD
Benign Hypertension
Anxiety
h/o syncope from severe orthostatic hypotension
-DM2-with microvascular complications
Anxiety, Insomnia
BPH
Plan:
Creatinine 1.9 on admission. At 1.1 on discharge in October 11., now down to 1.6 and nonoliguric at 900cc
Secondary to hemodynamics and hypotension. Agree with holding antihypertensive medications as well as a beta-norman for bradycardia.
Continue immunosuppressive therapy tacrolimus/prednisone/mycophenolate. Most recent tacrolimus level 5.8 as of September 27, 2024
Blood pressure now elevated, will add back carvedilol, still holding URSULA inhibitor and lasix
Follow BMP
-
-
Date of Service: October 16, 2024
CC / HPI / ROS
-
Chief Complaint:
Acute kidney injury
History of Present Illness:
Liver transplant on chronic immunosuppression therapy with tacrolimus prednisone and mycophenolate
Hemodynamically more stable
Creatinine down to 1.6
Review of Systems:
Nonoliguric
No fever
Labs
-
Labs:
WBC 8.9 10^3/uL (4.8-10.8) 10/16/24 03:51
RBC 3.79 10^6/uL (4.70-6.10) L 10/16/24 03:51
Hgb 10.4 g/dL (13.0-18.0) L 10/16/24 03:51
Hct 33.6 % (39.0-52.0) L 10/16/24 03:51
Plt Count 177 10^3/uL (130-400) 10/16/24 03:51
Sodium 142 mmol/L (135-145) 10/16/24 05:47
Potassium 5.5 mmol/L (3.5-5.1) H 10/16/24 05:47
Chloride 110 mmol/L (98-107) H 10/16/24 05:47
Carbon Dioxide 25 mmol/L (22-30) 10/16/24 05:47
BUN 35 mg/dl (9-20) H 10/16/24 05:47
Creatinine 1.6 mg/dL (0.7-1.3) H 10/16/24 05:47
eGFR 45.50 10/16/24 05:47
Glucose 265 mg/dl (70-99) H 10/16/24 05:47
Calcium 9.0 mg/dl (8.4-10.2) 10/16/24 05:47
Albumin 3.4 g/dl (3.5-5.0) L 10/16/24 05:47
Physical Exam
-
Vital Signs:
Vital Signs
Temp Pulse Resp BP Pulse Ox
98.8 F 72 19 161/66 96
10/16/24 05:44 10/16/24 08:11 10/16/24 08:11 10/16/24 08:11 10/16/24 08:11
Cardiovascular:: Regular rate and rhythm
Respiratory:: Bilateral: Coarse
Lung Excursion:: Normal
Abdomen:: Nontender and Soft
Bowel Sounds:: Normal
Extremity Edema:: None: Bilateral:
[2024-10-16] MEDS: APRESOLINE 5 MG IV ×2 (10:56→18:28)
[2024-10-16] MEDS: COREG 3.125 MG PO ×2 (10:56→20:13)
--- NOTE | 2024-10-16 11:41 | PTCARENOTE ---
Pt hypertensive, medications administered as ordered, see MICHELLE. Dr. Main and Dr. Vidal aware.
[2024-10-16 13:19] LABS: Glucose - Point of Care 290 mg/dl (70-99)
[2024-10-16] MEDS: NOVOLOG FLEXPEN-MODERATE RESISTANCE 5 UNITS SC ×2 (13:32→17:55)
[2024-10-16] MEDS: NSS IV (15:06)
--- NOTE | 2024-10-16 15:41 | PTCARENOTE ---
Pt downgraded to tele. Report to receiving RN. Belongings collected from room. Transferred to [facility] via stretcher.
[2024-10-16 17:18] LABS: Glucose - Point of Care 257 mg/dl (70-99)
[2024-10-16] MEDS: DILAUDID 0.5 MG IV (18:21)
[2024-10-16 21:38] LABS: Glucose - Point of Care 298 mg/dl (70-99)
[2024-10-16] MEDS: LANTUS 0.2 UNITS SC (21:55)
[2024-10-16] MEDS: NEURONTIN 300 MG PO (21:55)
[2024-10-16] MEDS: ROXICODONE 10 MG PO (22:14)
[2024-10-17] VITALS (7 sets, daily range): BP systolic 127–185; BP diastolic 52–79; BMI 27.6
[2024-10-17 00:23] LABS: Potassium 6.1 mmol/L (3.5-5.1)
[2024-10-17 00:53] LABS: Glucose - Point of Care 352 mg/dl (70-99)
--- NOTE | 2024-10-17 01:00 | W.PN.UPDATE ---
Update Note
Progress Note Update
~ 1 am - Critical lab received: K+ 6.1, ordered Insulin Human regular 10 units and Lokelma 10 grams. Repeat accuchecks 15 minutes, then Q1H x 2, then Q2H x 2. Repeat AM labs @ 5:30 am.
[2024-10-17] MEDS: LOKELMA 10 GRAM PO ×3 (01:16→19:10)
[2024-10-17] MEDS: NOVOLIN R 0.05 UNITS IV (01:20)
[2024-10-17 01:41] LABS: Glucose - Point of Care 320 mg/dl (70-99)
[2024-10-17 02:41] LABS: Glucose - Point of Care 331 mg/dl (70-99)
[2024-10-17 03:40] LABS: Glucose - Point of Care 327 mg/dl (70-99)
[2024-10-17] MEDS: ROXICODONE 10 MG PO ×4 (04:29→19:15)
[2024-10-17 05:40] LABS: Glucose - Point of Care 324 mg/dl (70-99)
[2024-10-17 06:29] LABS: % Basophils 0.7 % (0-2); % Eosinophils 1.7 % (0-6); % Immature Granulocytes 0.3 % (0-0.5); % Lymphocytes 23.8 % (20.5-51.1); % Monocytes 6.4 % (1.7-9.3); % Neutrophils 67.1 % (42.2-75.2); Absolute Basophils 0.1 10^3/uL (0-0.2); Absolute Eosinophils 0.2 10^3/uL (0-0.7); Absolute Lymphocytes 2.1 10^3/uL (1.2-3.4); Absolute Monocytes 0.6 10^3/uL (0.1-0.6); Absolute Neutrophils 5.9 10^3/uL (1.4-6.5); Hematocrit 34.9 % (39.0-52.0); Hemoglobin 10.9 g/dL (13.0-18.0); Mean Corp Hgb Conc. 31.2 g/dL (33.0-37.0); Mean Corpuscular Hgb 27.5 pg (27.0-31.0); Mean Corpuscular Volume 88.1 fL (80.0-94.0); Mean Platelet Volume 11.1 fL (7.4-10.4); Nucleated Red Blood Cells % 0 % (-); Platelet Count 195 10^3/uL (130-400); Red Blood Cell Count 3.96 10^6/uL (4.70-6.10); White Blood Cell Count 8.8 10^3/uL (4.8-10.8)
--- NOTE | 2024-10-17 07:03 | W.PN.HOSP.TC ---
Today's Communication/Plan
-
Significant hyperkalemia (>6 mmol/L potassium) -- unknown etiology -- Lokelma for a few more doses, extra Insulin given -- may need Lokelma when being discharged
Epigastric Discomfort and RUQ abdominal pain -- ordered RUQ ultrasound, EKG and troponins given CAD history
Physical Therapy
Assessment / Plan
Assessment / Plan
Physical Exam
General: Not in acute distress
HEENT: Normocephalic, Moist Mucosal Membranes
Respiratory: Clear to Auscultation Bilaterally
Cardiac: S1/S2 and Bradycardia -- later improved
GI: Soft, Non Tender, Non Distended and Normal Bowel Sounds
Musculoskeletal: No Cyanosis. No Edema and Other (Offloading front of foot boot present to right lower extremity)
Skin: Warm, Dry.
Neuro: AAO x 3, No Motor Deficits, Cranial Nerves Intact and No Sensory Deficits;
Assessment/Plan
#Symptomatic hypotension
BP 78/41 > 87/51-status post 1 L IV NSS in ER
Resumed Coreg on 10/16/24 (but at half the original home dose) as per nephrology -- nephrology discussed with cardiology who said okay to do
Add back nifedipine 30 mg daily for hypertension
Hold lisinopril
#Symptomatic bradycardia - RESOLVED
-Resolved with holding Coreg 6.25 BID --> but nephrology advised to resume Coreg at half dose so resumed it (also okay per cardio to do half of original dose)
-No need for cardiology consult, they mentioned patient does not have heart block and HR is now normal so no cardiology consultation needed
-Hyperkalemia cause of bradycardia?
#Significant Hyperkalemia
-Potassium 6.1 late night on 10/16/24
-Lokelma and 5 units regular Insulin ordered overnight
-Continue Lokelma (few more doses ordered)
-Unknown etiology per nephrology as patient is now hypertensive and has remained off URSULA-I
#Epigastric discomfort on 10/17/24 AM
#Right upper quadrant abdominal discomfort on 10/17/24 AM
-Patient has history of CAD (as below)
-Ordered EKG and troponins --> unremarkable so far
-Check RUQ ultrasound --> ordered
-ALP is elevated on and off, but AST, ALT and total bilirubin are unremarkable
# Immunocompromised state with history of renal transplant
# Immunocompromised: renal transplant on mycophenolate, tacrolimus
# Recent Severe Sepsis POA 2/2 Enterococcal bacteremia and UTI
# Recent Uncomplicated Enterococcus faecalis bacteremia
# Recent Enterococcus complicated UTI
-Completed course of antibiotics from a recent hospitalization
# Recent acute urinary retention
Holding Flomax due to symptomatic hypotension
Bladder scans protocol
# Recent Shortness of Breath with Acute Hypoxic Respiratory Insufficiency, likely new-onset HFpEF
# Recent SEVERE ACUTE INTERSTITIAL and ALVEOLAR CARDIOGENIC PULMONARY EDEMA on CT Chest
# Recent Small bilateral pleural effusions with adjacent compressive bibasilar subsegmental atelectasis.
-From a recent hospitalization
-Hold home Lasix for now
# Acute blood loss anemia
# Non-bleeding gastric ulcer with no stigmata of bleeding - clean based gastric ulcer
# Gastritis
From recent hospitalization
s/p total of 3 u prbc's on recent hospitalization
maintain on PPI
GI EGD on 09/28/24: clean based gastric ulcer. Continue ppi po bid for 8 weeks (from 09/28/24). GI office will call him for f/u as he needs a repeat in 8 weeks.
Avoid NSAIDs
Repeat EGD in 8 weeks from 09/28/24
Follow-up biopsy results with gastroenterology
# SHERRY on CKD III
# History of Renal Transplant
SCr peaked at 1.8, back to baseline at ~1.3
Maintained on tacrolimus/prednisone/mycophenolate. Tacrolimus level 08/19 was 5.8, repeat is 5.2 (from 09/27/24)
Nephrology consulted, appreciate their evaluation and recommendations
# Recent (recent hospitalization) Watery diarrhea started 10/07/24, 2/2 Norovirus, resolved
No reports of diarrhea this hospitalization
Was previously given IV fluids which were stopped
symptoms improved
# Recent (recent hospitalization) Hypokalemia, replaced and resolved
-Now potassium is high instead of low
# Peripheral Artery Disease status post RLE endovascular intervention (08/18/24)
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
# Moderate diffuse subcutaneous edema in both lower legs.
# Recent admission for Right foot transmetatarsal amputation for Right foot dried forefoot gangrene and bilateral subcutaneous debridement
Patient was told to be nonweightbearing right leg and left leg weightbearing for transfers only as of early August [address] Jermaine Samano and Dr. Andrade Valencia, patient can do weight bearing as tolerated to the RLE, and continue LLE weightbearing for transfers only
Wounds / surgical sites are well appearing without evidence of active infection, erythema, discharge, etc.
Wound Care eval for continued local care.
# Neuropathic (shooting) pain RLE from recent surgery
Continue home Gabapentin
Cont Tylenol
# Benign Hypertension
# History lucinda HTN urgency
Continue Coreg (but at half of home dose) as per nephro (as above)
Resume Nifedipine today
Continue to hold Lisinopril 10 mg as above
# Diabetes Mellitus
Now with significant hyperglycemia in the 300s
Increased Insulin regimen (more than home dose)
Add Diabetic Diet modification to diet order
Continue accuchecks at home and follow-up with PCP
# Anxiety, Stable.
Continue clonazepam PRN.
# Hyponatremia
monitor
#CAD
#CVA
#YASH on CPAP
#Anxiety/depression
#Macular degeneration
#Narcolepsy
#ADHD
#Appendectomy
#Right AV fistula
#TURP
#Knee arthroscopic surgery
DVT Prophylaxis: SCDs. Heparin subq
Code Status: Full Code
Anticipated Discharge: 24 - 48 hours
Subjective/Interval History
-
Date of Service: October 17, 2024
Patient was seen and examined. This morning, he reported epigastric discomfort and also right upper quadrant abdominal discomfort. He reports he is having bowel movements okay.
Objective Data
-
Labs:
Laboratory Results
10/16/24 10/17/24
23:48 05:43
WBC 8.8
Hgb 10.9 L
Hct 34.9 L
Plt Count 195
Sodium Pending
Potassium 6.1 H* Pending
Chloride Pending
Carbon Dioxide Pending
BUN Pending
Creatinine Pending
Glucose Pending
Calcium Pending
Total Bilirubin Pending
AST Pending
ALT Pending
Alkaline Phosphatase Pending
Vital Signs:
Vital Signs
Temp Pulse Resp BP Pulse Ox
98.0 F 72 20 158/68 93
10/17/24 03:11 10/17/24 03:11 10/17/24 03:11 10/17/24 06:11 10/17/24 03:11
I&O
10/16/24 10/17/24 10/18/24
06:59 06:59 06:59
Intake Total 540 / 540
Output Total 900 / 900 1400 / 1400
Balance -900 / -900 -860 / -860
[2024-10-17 07:08] LABS: ALT (SGPT) 18 U/L (0-50); AST (SGOT) 14 U/L (17-59); Albumin 3.9 g/dl (3.5-5.0); Alkaline Phosphatase 175 U/L (38-126); Blood Urea Nitrogen 25 mg/dl (9-20); Calcium 9.4 mg/dl (8.4-10.2); Carbon Dioxide 26 mmol/L (22-30); Chloride 105 mmol/L (98-107); Estimated Creatinine Clearance 61 ml/min; Glucose 327 mg/dl (70-99); Potassium 5.4 mmol/L (3.5-5.1); Sodium 140 mmol/L (135-145); Total Bilirubin 0.4 mg/dl (0.2-1.3); Total Protein 6.2 g/dl (6.3-8.2); eGFR > 60.00
[2024-10-17 07:28] LABS: Glucose - Point of Care 318 mg/dl (70-99)
[2024-10-17] MEDS: NOVOLOG FLEXPEN-MODERATE RESISTANCE 7 UNITS SC (08:56)
[2024-10-17] MEDS: NOVOLOG FLEXPEN 5 UNITS SC ×2 (08:56→12:24)
[2024-10-17] MEDS: MAG-TAB SR 84 MG PO (08:56)
[2024-10-17] MEDS: COREG 3.125 MG PO ×2 (08:57→20:15)
[2024-10-17] MEDS: PLAVIX 75 MG PO (08:57)
[2024-10-17] MEDS: MYFORTIC DELAYED REL. 720 MG PO ×2 (08:57→20:16)
[2024-10-17] MEDS: LIPITOR 40 MG PO (08:57)
[2024-10-17] MEDS: ASPIR LOW (ENTERIC COATED) 81 MG PO (08:57)
[2024-10-17] MEDS: HEPARIN 5000 UNITS SC ×2 (08:59→20:15)
[2024-10-17] MEDS: PROTONIX 40 MG PO ×2 (08:59→20:15)
[2024-10-17] MEDS: DELTASONE 5 MG PO (09:03)
[2024-10-17] MEDS: PROGRAF 2 MG PO ×2 (09:04→20:18)
[2024-10-17] MEDS: APRESOLINE 5 MG IV (09:04)
[2024-10-17 09:56] LABS: Troponin I < 0.012 ng/ml
--- NOTE | 2024-10-17 11:33 | W.PN.NEPH.PH ---
Today's Communication / Plan
-
Creatinine at baseline
Lasix remains held
Will add back nifedipine 30 mg daily for hypertension
Patient tolerating low-dose carvedilol in regards to bradycardia on presentation
Assessment/Plan
-
74-year-old male history of ESRD from diabetic nephropathy s/p renal transplant (donor daughter) in 10/2022 at [place] on [place], MMF, prednisone and monthly Belatacept for ACR in biopsy in 04/2023 last dose in Dec, labile BPs with significant
orthostatic hypotension with autonomic dysfucntion related to diabetes, hyperlipidemia, insulin-dependent diabetes, recent R transmet amputation presents to ED on 09/25 complaining of confusion, weakness and fatigue. Patient was discharged on
October 11 was admitted for diarrhea and norovirus. He had heme positive stools as well was transfused and upper endoscopy showed gastric ulcer. Simultaneously he was treated for sepsis and a urine infection Enterococcus.
His cr baseline was at 1.3-1.5. Although discharged a few days ago with a creatinine of 1.1. He follows with with Dr Villasenor.
He presents today with hypotension systolic blood pressure 70s. And a creatinine of 1.8.
Renal consult for acute kidney injury and transplant management
Assessment:
Acute kidney injury creatinine of 1.9.
Hypotension
History of enterococcal bacteremia and UTI
SHERRY on CKD III-baseline cr 1.3-1.5
ESRD-D nephropathy s/p LR KTP(daughter) 10/2022 at [place]
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
Heme Positive Stools previous admissions in September 2024
b/l LE Wounds
ASCVD / PAD
Benign Hypertension
Anxiety
h/o syncope from severe orthostatic hypotension
-DM2-with microvascular complications
Anxiety, Insomnia
BPH
Plan:
Creatinine 1.2 , now at baseline remains nonoliguric
Hyperkalemia correcting with Lokelma
Secondary to hemodynamics and hypotension. , holding URSULA with hyperkalemia
Continue immunosuppressive therapy tacrolimus/prednisone/mycophenolate. Most recent tacrolimus level 5.8 as of September 27, 2024
Lokelma was provided as well as insulin and D50 for hyperkalemia, I am not sure of the etiology of his hyperkalemia as he is now hypertensive and has remained off ursula
Still holding leg
Add back nifedipine 30 mg daily for hypertension
Follow BMP
-
-
Date of Service: October 17, 2024
CC / HPI / ROS
-
Chief Complaint:
Acute kidney injury
History of Present Illness:
Liver transplant on chronic immunosuppression therapy with tacrolimus prednisone and mycophenolate
Hemodynamically more stable, blood pressure now elevated
Creatinine down to 1.2
Hyperkalemia
Review of Systems:
Nonoliguric
No fever
Labs
-
Labs:
WBC 8.8 10^3/uL (4.8-10.8) 10/17/24 05:43
RBC 3.96 10^6/uL (4.70-6.10) L 10/17/24 05:43
Hgb 10.9 g/dL (13.0-18.0) L 10/17/24 05:43
Hct 34.9 % (39.0-52.0) L 10/17/24 05:43
Plt Count 195 10^3/uL (130-400) 10/17/24 05:43
Sodium 140 mmol/L (135-145) 10/17/24 05:43
Potassium 5.4 mmol/L (3.5-5.1) H 10/17/24 05:43
Chloride 105 mmol/L (98-107) 10/17/24 05:43
Carbon Dioxide 26 mmol/L (22-30) 10/17/24 05:43
BUN 25 mg/dl (9-20) H 10/17/24 05:43
Creatinine 1.2 mg/dL (0.7-1.3) 10/17/24 05:43
eGFR > 60.00 10/17/24 05:43
Glucose 327 mg/dl (70-99) H 10/17/24 05:43
Calcium 9.4 mg/dl (8.4-10.2) 10/17/24 05:43
Albumin 3.9 g/dl (3.5-5.0) 10/17/24 05:43
Physical Exam
-
Vital Signs:
Vital Signs
Temp Pulse Resp BP Pulse Ox
97.3 F 71 20 178/79 98
10/17/24 07:00 10/17/24 07:00 10/17/24 07:00 10/17/24 07:00 10/17/24 07:00
Cardiovascular:: Regular rate and rhythm
Respiratory:: Bilateral: Coarse
Lung Excursion:: Normal
Abdomen:: Nontender and Soft
Bowel Sounds:: Normal
Extremity Edema:: None: Bilateral:
[place] Catheter: No
[2024-10-17 12:05] LABS: Glucose - Point of Care 260 mg/dl (70-99)
[2024-10-17] MEDS: NOVOLOG FLEXPEN-MODERATE RESISTANCE 5 UNITS SC (12:24)
--- NOTE | 2024-10-17 13:23 | CM ---
manager service desk reviewed patient's chart and met with patient and patient states he lives with his spouse in a one story home with 2 steps to enter, patient has a cane walker and w/c for ambulation, per patient he has visiting nurse serves for [facility],
referral sent to [facility] in [facility].
PCP: Dr Suarez
Pharmacy: [facility] in [place].
Plan; Home with [facility] when stable.
[2024-10-17 16:50] LABS: Glucose - Point of Care 196 mg/dl (70-99)
[2024-10-17 17:15] LABS: Troponin I < 0.012 ng/ml
[2024-10-17] MEDS: NOVOLOG FLEXPEN-MODERATE RESISTANCE 1 UNITS SC (18:00)
[2024-10-17] MEDS: NOVOLOG FLEXPEN 7 UNITS SC (18:01)
[2024-10-17 20:35] LABS: Blood Urea Nitrogen 23 mg/dl (9-20); Calcium 9.4 mg/dl (8.4-10.2); Carbon Dioxide 23 mmol/L (22-30); Chloride 105 mmol/L (98-107); Estimated Creatinine Clearance 67 ml/min; Glucose 256 mg/dl (70-99); Potassium 5.5 mmol/L (3.5-5.1); Sodium 139 mmol/L (135-145); eGFR > 60.00
[2024-10-17 20:38] LABS: Troponin I < 0.012 ng/ml
[2024-10-17 23:59] LABS: Glucose - Point of Care 261 mg/dl (70-99)
[2024-10-18] VITALS (7 sets, daily range): BP systolic 124–201; BP diastolic 69–90; BMI 27.7
[2024-10-18] MEDS: NEURONTIN 300 MG PO ×2 (00:02→20:36)
[2024-10-18] MEDS: ROXICODONE 10 MG PO ×3 (00:02→22:27)
[2024-10-18] MEDS: APRESOLINE 5 MG IV ×2 (02:21→22:29)
[2024-10-18 02:28] LABS: % Basophils 0.8 % (0-2); % Eosinophils 1.9 % (0-6); % Immature Granulocytes 0.2 % (0-0.5); % Lymphocytes 19.1 % (20.5-51.1); % Monocytes 5.6 % (1.7-9.3); % Neutrophils 72.4 % (42.2-75.2); Absolute Basophils 0.1 10^3/uL (0-0.2); Absolute Eosinophils 0.2 10^3/uL (0-0.7); Absolute Lymphocytes 1.6 10^3/uL (1.2-3.4); Absolute Monocytes 0.5 10^3/uL (0.1-0.6); Absolute Neutrophils 6.2 10^3/uL (1.4-6.5); Hematocrit 35.6 % (39.0-52.0); Hemoglobin 11.3 g/dL (13.0-18.0); Mean Corp Hgb Conc. 31.7 g/dL (33.0-37.0); Mean Corpuscular Hgb 27.4 pg (27.0-31.0); Mean Corpuscular Volume 86.2 fL (80.0-94.0); Mean Platelet Volume 10.8 fL (7.4-10.4); Nucleated Red Blood Cells % 0 % (-); Platelet Count 190 10^3/uL (130-400); Red Blood Cell Count 4.13 10^6/uL (4.70-6.10); Red Cell Dist. Width 14.9 % (11.5-14.5); White Blood Cell Count 8.6 10^3/uL (4.8-10.8)
[2024-10-18 02:57] LABS: ALT (SGPT) 18 U/L (0-50); AST (SGOT) 17 U/L (17-59); Albumin 4.3 g/dl (3.5-5.0); Alkaline Phosphatase 144 U/L (38-126); Blood Urea Nitrogen 24 mg/dl (9-20); Calcium 9.4 mg/dl (8.4-10.2); Carbon Dioxide 25 mmol/L (22-30); Chloride 103 mmol/L (98-107); Estimated Creatinine Clearance 73 ml/min; Glucose 263 mg/dl (70-99); Potassium 6.1 mmol/L (3.5-5.1); Sodium 137 mmol/L (135-145); Total Bilirubin 0.5 mg/dl (0.2-1.3); Total Protein 6.4 g/dl (6.3-8.2); eGFR > 60.00
[2024-10-18 03:04] LABS: Troponin I 0.013 ng/ml
--- NOTE | 2024-10-18 03:50 | W.PN.UPDATE ---
Update Note
Progress Note Update
~3 am - Critical lab received: K+ 6.1, ordered Insulin Human regular 5 units and gave Lokelma 10 grams early. Repeat accuchecks 15 minutes, then Q1H x 2, then Q2H x 2. Repeat AM labs ordered.
[2024-10-18 03:51] LABS: Glucose - Point of Care 238 mg/dl (70-99)
[2024-10-18] MEDS: NOVOLIN R 0.05 UNITS IV (03:53)
[2024-10-18] MEDS: DEXTROSE 50% SYRINGE 12.5 GRAMS IV (03:57)
[2024-10-18 05:10] LABS: Glucose - Point of Care 276 mg/dl (70-99)
[2024-10-18] MEDS: LOKELMA 10 GRAM PO ×2 (05:10→10:54)
[2024-10-18 06:09] LABS: Glucose - Point of Care 277 mg/dl (70-99)
[2024-10-18] MEDS: NOVOLOG FLEXPEN-MODERATE RESISTANCE 5 UNITS SC (07:19)
[2024-10-18 07:44] LABS: Hematocrit 34.5 % (39.0-52.0); Mean Corp Hgb Conc. 31.9 g/dL (33.0-37.0); Mean Corpuscular Hgb 27.7 pg (27.0-31.0); Mean Corpuscular Volume 86.9 fL (80.0-94.0); Mean Platelet Volume 11.2 fL (7.4-10.4); Platelet Count 177 10^3/uL (130-400); Red Blood Cell Count 3.97 10^6/uL (4.70-6.10); Red Cell Dist. Width 14.7 % (11.5-14.5); White Blood Cell Count 8.5 10^3/uL (4.8-10.8)
[2024-10-18 07:56] LABS: Blood Urea Nitrogen 22 mg/dl (9-20); Calcium 9.4 mg/dl (8.4-10.2); Carbon Dioxide 30 mmol/L (22-30); Chloride 101 mmol/L (98-107); Estimated Creatinine Clearance 67 ml/min; Glucose 261 mg/dl (70-99); Potassium 5.1 mmol/L (3.5-5.1); Sodium 138 mmol/L (135-145); eGFR > 60.00
[2024-10-18 08:20] LABS: Glucose - Point of Care 272 mg/dl (70-99)
[2024-10-18] MEDS: MYFORTIC DELAYED REL. 720 MG PO ×2 (08:59→20:32)
[2024-10-18] MEDS: PROGRAF 2 MG PO ×2 (09:02→20:32)
[2024-10-18] MEDS: ASPIR LOW (ENTERIC COATED) 81 MG PO (09:04)
[2024-10-18] MEDS: LIPITOR 40 MG PO (09:04)
[2024-10-18] MEDS: MAG-TAB SR 84 MG PO (09:04)
[2024-10-18] MEDS: PLAVIX 75 MG PO (09:04)
[2024-10-18] MEDS: COREG 3.125 MG PO ×2 (09:05→20:32)
[2024-10-18] MEDS: DELTASONE 5 MG PO (09:05)
[2024-10-18] MEDS: PROTONIX PO (09:06)
[2024-10-18] MEDS: HEPARIN 5000 UNITS SC ×2 (09:06→20:30)
[2024-10-18] MEDS: NOVOLOG FLEXPEN 7 UNITS SC (09:07)
--- NOTE | 2024-10-18 09:48 | W.PN.HOSP.TC ---
Today's Communication/Plan
-
.
Assessment / Plan
Assessment / Plan
Physical Exam
General: Not in acute distress
HEENT: Normocephalic, Moist Mucosal Membranes
Respiratory: Clear to Auscultation Bilaterally
Cardiac: S1/S2
GI: Soft, Non Tender, Non Distended and Normal Bowel Sounds
Musculoskeletal: No Cyanosis. No Edema , fistula right arm
Skin: Warm, Dry.
Neuro: AAO x 3, No gross focal deficit
Psych: calm
Assessment/Plan
#Symptomatic hypotension, resolved
Primary HTN, now uncontrolled,
Resumed Coreg on 10/16/24 (but at half the original home dose) as per nephrology -- nephrology discussed with cardiology who said okay to do
Order nifedipine 30 mg daily for hypertension
Hold lisinopril
#Symptomatic bradycardia - RESOLVED, due to BB
-Resolved with holding Coreg 6.25 BID --> but nephrology advised to resume Coreg at half dose so resumed it (also okay per cardio to do half of original dose)
-No need for cardiology consult, they mentioned patient does not have heart block and HR is now normal so no cardiology consultation needed
#Significant Hyperkalemia
improving
to control hyperglycemia
c/w daily Lokelma for now
Would not resume URSULA
# Diabetes Mellitus
Uncontrolled
Significant hyperglycemia in the 300s
Increased Insulin regimen, give extra dose Lantus, increase pre-meal and will follow
#Epigastric discomfort on 10/17/24 AM
#Right upper quadrant abdominal discomfort on 10/17/24 AM
-Patient has history of CAD (as below)
-Ordered EKG and troponins --> unremarkable so far
-Check RUQ ultrasound --> ordered
-ALP is elevated on and off, but AST, ALT and total bilirubin are unremarkable
# Immunocompromised state with history of renal transplant
# Immunocompromised: renal transplant on mycophenolate, tacrolimus
# Recent Severe Sepsis POA 2/2 Enterococcal bacteremia and UTI
# Recent Uncomplicated Enterococcus faecalis bacteremia
# Recent Enterococcus complicated UTI
-Completed course of antibiotics from a recent hospitalization
# Recent acute urinary retention
Holding Flomax due to symptomatic hypotension, resume Flomax now
Bladder scans protocol
# Recent Shortness of Breath with Acute Hypoxic Respiratory Insufficiency, likely new-onset HFpEF
# Recent SEVERE ACUTE INTERSTITIAL and ALVEOLAR CARDIOGENIC PULMONARY EDEMA on CT Chest
# Recent Small bilateral pleural effusions with adjacent compressive bibasilar subsegmental atelectasis.
-From a recent hospitalization
-Hold home Lasix for now
# Acute blood loss anemia
# Non-bleeding gastric ulcer with no stigmata of bleeding - clean based gastric ulcer
# Gastritis
No abd pain
Abd US no acute findings
From recent hospitalization
s/p total of 3 u prbc's on recent hospitalization
GI EGD on 09/28/24: clean based gastric ulcer. Continue ppi po bid for 8 weeks (from 09/28/24). GI office will call him for f/u as he needs a repeat in 8 weeks.
Avoid NSAIDs
Repeat EGD in 8 weeks from 09/28/24
Follow-up biopsy results with gastroenterology
# SHERRY on CKD III
# History of Renal Transplant
SCr peaked at 1.8, back to baseline at ~1.3
Maintained on tacrolimus/prednisone/mycophenolate. Tacrolimus level 08/19 was 5.8, repeat is 5.2 (from 09/27/24)
Nephrology consulted, appreciate their evaluation and recommendations
# Recent (recent hospitalization) Watery diarrhea started 10/07/24, 2/2 Norovirus, resolved
No reports of diarrhea this hospitalization
Was previously given IV fluids which were stopped
symptoms improved
# Recent (recent hospitalization) Hypokalemia, replaced and resolved
# Peripheral Artery Disease status post RLE endovascular intervention (08/18/24)
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
# Moderate diffuse subcutaneous edema in both lower legs.
# Recent admission for Right foot transmetatarsal amputation for Right foot dried forefoot gangrene and bilateral subcutaneous debridement
Patient was told to be nonweightbearing right leg and left leg weightbearing for transfers only as of early August [address] Jermaine Samano and Dr. Andrade Valencia, patient can do weight bearing as tolerated to the RLE, and continue LLE weightbearing for transfers only
Wounds / surgical sites are well appearing without evidence of active infection, erythema, discharge, etc.
Wound Care eval for continued local care.
# Neuropathic (shooting) pain RLE from recent surgery
Continue home Gabapentin
Cont Tylenol
# Anxiety, Stable.
Continue clonazepam PRN.
# Hyponatremia
monitor
#CAD
#CVA
#YASH on CPAP
#Anxiety/depression
#Macular degeneration
#Narcolepsy
#ADHD
#Appendectomy
#Right AV fistula
#TURP
#Knee arthroscopic surgery
DVT Prophylaxis: SCDs. Heparin subq
Code Status: Full Code
Total time spent to see the patient, examine the patient, review data and lab results, discuss treatment plan with patient and nursing staff around 59-minute
Anticipated Discharge: 24 - 48 hours
Subjective/Interval History
-
Date of Service: October 18, 2024
No chest pain
No sob
No abdominal pain
Objective Data
-
Labs:
Laboratory Results
10/18/24 10/18/24 10/18/24
02:13 02:13 06:57
WBC 8.6 8.5
Hgb 11.3 L 11.0 L
Hct 35.6 L 34.5 L
Plt Count 190 177
Sodium 137 138
Potassium 6.1 H* Cancelled 5.1
Chloride 103 101
Carbon Dioxide 25 30
BUN 24 H 22 H
Creatinine 1.0 1.1
Glucose 263 H 261 H
Calcium 9.4 9.4
Total Bilirubin 0.5
AST 17
ALT 18
Alkaline Phosphatase 144 H
Vital Signs:
Vital Signs
Temp Pulse Resp BP Pulse Ox
98.0 F 73 16 163/72 98
10/18/24 07:00 10/18/24 07:00 10/18/24 07:00 10/18/24 07:00 10/18/24 07:00
I&O
10/17/24 10/18/24 10/19/24
06:59 06:59 06:59
Intake Total 540 / 540 1440 / 1440
Output Total 1400 / 1400 250 / 250
Balance -860 / -860 1190 / 1190
[2024-10-18 10:03] LABS: Glucose - Point of Care 241 mg/dl (70-99)
--- NOTE | 2024-10-18 10:36 | W.PN.NEPH.PH ---
Today's Communication / Plan
-
Will escalate nifedipine from 30 to 60 mg
Follow BMP
Holding lisinopril due to persistent hyperkalemia
Assessment/Plan
-
74-year-old male history of ESRD from diabetic nephropathy s/p renal transplant (donor daughter) in 10/2022 at [place] on [place], MMF, prednisone and monthly Belatacept for ACR in biopsy in 04/2023 last dose in Dec, labile BPs with significant
orthostatic hypotension with autonomic dysfucntion related to diabetes, hyperlipidemia, insulin-dependent diabetes, recent R transmet amputation presents to ED on 09/25 complaining of confusion, weakness and fatigue. Patient was discharged on
October 11 was admitted for diarrhea and norovirus. He had heme positive stools as well was transfused and upper endoscopy showed gastric ulcer. Simultaneously he was treated for sepsis and a urine infection Enterococcus.
His cr baseline was at 1.3-1.5. Although discharged a few days ago with a creatinine of 1.1. He follows with with Dr Villasenor.
He presents today with hypotension systolic blood pressure 70s. And a creatinine of 1.8.
Renal consult for acute kidney injury and transplant management
Assessment:
Acute kidney injury creatinine of 1.9.
Hypotension
History of enterococcal bacteremia and UTI
SHERRY on CKD III-baseline cr 1.3-1.5
ESRD-D nephropathy s/p LR KTP(daughter) 10/2022 at [place]
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
Heme Positive Stools previous admissions in September 2024
b/l LE Wounds
ASCVD / PAD
Benign Hypertension
Anxiety
h/o syncope from severe orthostatic hypotension
-DM2-with microvascular complications
Anxiety, Insomnia
BPH
Plan:
Creatinine 1.1 , now at baseline remains nonoliguric
Hyperkalemia correcting with Lokelma
SHERRY Secondary to hemodynamics and hypotension. , holding URSULA with hyperkalemia
Continue immunosuppressive therapy tacrolimus/prednisone/mycophenolate. Most recent tacrolimus level 5.8 as of September 27, 2024
Lokelma was provided as well as insulin and D50 for hyperkalemia, I am not sure of the etiology of his hyperkalemia as he is now hypertensive and has remained off ursula
Added back nifedipine 30 mg daily for hypertension but will now increase to 60mg daily
Follow BMP
-
-
Date of Service: October 18, 2024
CC / HPI / ROS
-
Chief Complaint:
Acute kidney injury
History of Present Illness:
Liver transplant on chronic immunosuppression therapy with tacrolimus prednisone and mycophenolate
Hemodynamically more stable, blood pressure now elevated
Creatinine down to 1.1
Hyperkalemia stable at 5.1
Review of Systems:
Nonoliguric
No fever
Labs
-
Labs:
WBC 8.5 10^3/uL (4.8-10.8) 10/18/24 06:57
RBC 3.97 10^6/uL (4.70-6.10) L 10/18/24 06:57
Hgb 11.0 g/dL (13.0-18.0) L 10/18/24 06:57
Hct 34.5 % (39.0-52.0) L 10/18/24 06:57
Plt Count 177 10^3/uL (130-400) 10/18/24 06:57
Sodium 138 mmol/L (135-145) 10/18/24 06:57
Potassium 5.1 mmol/L (3.5-5.1) 10/18/24 06:57
Chloride 101 mmol/L (98-107) 10/18/24 06:57
Carbon Dioxide 30 mmol/L (22-30) 10/18/24 06:57
BUN 22 mg/dl (9-20) H 10/18/24 06:57
Creatinine 1.1 mg/dL (0.7-1.3) 10/18/24 06:57
eGFR > 60.00 10/18/24 06:57
Glucose 261 mg/dl (70-99) H 10/18/24 06:57
Calcium 9.4 mg/dl (8.4-10.2) 10/18/24 06:57
Albumin 4.3 g/dl (3.5-5.0) 10/18/24 02:13
Physical Exam
-
Vital Signs:
Vital Signs
Temp Pulse Resp BP Pulse Ox
98.0 F 73 16 163/72 98
10/18/24 07:00 10/18/24 07:00 10/18/24 07:00 10/18/24 07:00 10/18/24 07:00
Cardiovascular:: Regular rate and rhythm
Respiratory:: Bilateral: Coarse
Lung Excursion:: Normal
Abdomen:: Nontender and Soft
Bowel Sounds:: Normal
Extremity Edema:: None: Bilateral:
Davenport Catheter: No
[2024-10-18] MEDS: LANTUS 0.15 UNITS SC (10:53)
[2024-10-18 12:21] LABS: Glucose - Point of Care 212 mg/dl (70-99)
[2024-10-18] MEDS: NOVOLOG FLEXPEN 10 UNITS SC ×2 (12:38→17:53)
[2024-10-18] MEDS: NOVOLOG FLEXPEN-MODERATE RESISTANCE 3 UNITS SC (12:39)
[2024-10-18 16:31] LABS: Glucose - Point of Care 155 mg/dl (70-99)
[2024-10-18] MEDS: NOVOLOG FLEXPEN-MODERATE RESISTANCE 1 UNITS SC (17:54)
[2024-10-18 21:45] LABS: Glucose - Point of Care 251 mg/dl (70-99)
[2024-10-18] MEDS: LANTUS 0.23 UNITS SC ×2 (22:28)
[2024-10-19 03:48] VITALS: BP 157/79
[2024-10-19 06:00] VITALS: BMI 27.5
[2024-10-19 07:00] VITALS: BP 176/87
[2024-10-19 07:12] LABS: Glucose - Point of Care 211 mg/dl (70-99)
[2024-10-19] MEDS: PROGRAF 2 MG PO (08:06)
[2024-10-19] MEDS: ASPIR LOW (ENTERIC COATED) 81 MG PO (08:06)
[2024-10-19] MEDS: PROCARDIA XL (EXTENDED RELEASE) 60 MG PO (08:06)
[2024-10-19] MEDS: PROTONIX 40 MG PO (08:06)
[2024-10-19] MEDS: MYFORTIC DELAYED REL. 720 MG PO (08:06)
[2024-10-19] MEDS: DELTASONE 5 MG PO (08:07)
[2024-10-19] MEDS: MAG-TAB SR 84 MG PO (08:07)
[2024-10-19] MEDS: LIPITOR 40 MG PO (08:07)
[2024-10-19] MEDS: HEPARIN 5000 UNITS SC (08:07)
[2024-10-19] MEDS: PLAVIX 75 MG PO (08:07)
[2024-10-19] MEDS: COREG 3.125 MG PO (08:07)
[2024-10-19 08:57] LABS: Blood Urea Nitrogen 24 mg/dl (9-20); Calcium 9.6 mg/dl (8.4-10.2); Carbon Dioxide 26 mmol/L (22-30); Chloride 101 mmol/L (98-107); Estimated Creatinine Clearance 61 ml/min; Glucose 200 mg/dl (70-99); Potassium 4.9 mmol/L (3.5-5.1); Sodium 138 mmol/L (135-145); eGFR > 60.00
[2024-10-19] MEDS: NOVOLOG FLEXPEN 10 UNITS SC ×2 (09:12→12:50)
[2024-10-19] MEDS: LANTUS 0.17 UNITS SC (09:12)
[2024-10-19] MEDS: NOVOLOG FLEXPEN-MODERATE RESISTANCE 3 UNITS SC (09:12)
--- NOTE | 2024-10-19 09:23 | W.PN.HOSP.TC ---
Today's Communication/Plan
-
discharge
Assessment / Plan
Assessment / Plan
Physical Exam
General: Not in acute distress
HEENT: Normocephalic, Moist Mucosal Membranes
Respiratory: Clear to Auscultation Bilaterally
Cardiac: S1/S2
GI: Soft, Non Tender, Non Distended and Normal Bowel Sounds
Musculoskeletal: No Cyanosis. No Edema , fistula right arm
Skin: Warm, Dry.
Neuro: AAO x 3, No gross focal deficit
Psych: calm
Assessment/Plan
#Symptomatic hypotension, resolved
Primary HTN, now uncontrolled,
Resumed Coreg on 10/16/24 (but at half the original home dose) as per nephrology --
Order nifedipine 30 mg daily for hypertension then increased with good response
Hold lisinopril
#Symptomatic bradycardia - RESOLVED, due to BB
-Resolved with holding Coreg 6.25 BID --> but nephrology advised to resume Coreg at half dose so resumed it (also okay per cardio to do half of original dose)
-No need for cardiology consult, they mentioned patient does not have heart block and HR is now normal so no cardiology consultation needed
#Significant Hyperkalemia
resolved with stopping lisinopril and controlling hyperglycemia.
s/p Lokelma.
# Diabetes Mellitus
better controlled
Increased Insulin regimen, give extra dose Lantus, increased pre-meal and will follow
#Epigastric discomfort on 10/17/24 AM
#Right upper quadrant abdominal discomfort on 10/17/24 AM
-Patient has history of CAD (as below)
-Ordered EKG and troponins --> unremarkable so far
-Check RUQ ultrasound --> ordered
-ALP is elevated on and off, but AST, ALT and total bilirubin are unremarkable
# Immunocompromised state with history of renal transplant
# Immunocompromised: renal transplant on mycophenolate, tacrolimus
# Recent Severe Sepsis POA 2/2 Enterococcal bacteremia and UTI
# Recent Uncomplicated Enterococcus faecalis bacteremia
# Recent Enterococcus complicated UTI
-Completed course of antibiotics from a recent hospitalization
# Recent acute urinary retention
Holding Flomax due to symptomatic hypotension, resume Flomax now
Bladder scans protocol
# Recent Shortness of Breath with Acute Hypoxic Respiratory Insufficiency, likely new-onset HFpEF
# Recent SEVERE ACUTE INTERSTITIAL and ALVEOLAR CARDIOGENIC PULMONARY EDEMA on CT Chest
# Recent Small bilateral pleural effusions with adjacent compressive bibasilar subsegmental atelectasis.
-From a recent hospitalization
-Hold home Lasix for now
# Acute blood loss anemia
# Non-bleeding gastric ulcer with no stigmata of bleeding - clean based gastric ulcer
# Gastritis
No abd pain
Abd US no acute findings
From recent hospitalization
s/p total of 3 u prbc's on recent hospitalization
GI EGD on 09/28/24: clean based gastric ulcer. Continue ppi po bid for 8 weeks (from 09/28/24). GI office will call him for f/u as he needs a repeat in 8 weeks.
Avoid NSAIDs
Repeat EGD in 8 weeks from 09/28/24
Follow-up biopsy results with gastroenterology
# SHERRY on CKD III
# History of Renal Transplant
SCr peaked at 1.8, back to baseline at ~1.3
Maintained on tacrolimus/prednisone/mycophenolate. Tacrolimus level 08/19 was 5.8, repeat is 5.2 (from 09/27/24)
Nephrology consulted, appreciate their evaluation and recommendations
# Recent (recent hospitalization) Watery diarrhea started 10/07/24, 2/2 Norovirus, resolved
No reports of diarrhea this hospitalization
Was previously given IV fluids which were stopped
symptoms improved
# Recent (recent hospitalization) Hypokalemia, replaced and resolved
# Peripheral Artery Disease status post RLE endovascular intervention (08/18/24)
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
# Moderate diffuse subcutaneous edema in both lower legs.
# Recent admission for Right foot transmetatarsal amputation for Right foot dried forefoot gangrene and bilateral subcutaneous debridement
Patient was told to be nonweightbearing right leg and left leg weightbearing for transfers only as of early August [address] Jermaine Samano and Dr. Andrade Valencia, patient can do weight bearing as tolerated to the RLE, and continue LLE weightbearing for transfers only
Wounds / surgical sites are well appearing without evidence of active infection, erythema, discharge, etc.
Wound Care eval for continued local care.
# Neuropathic (shooting) pain RLE from recent surgery
Continue home Gabapentin
Cont Tylenol
# Anxiety, Stable.
Continue clonazepam PRN.
# Hyponatremia
monitor
#CAD
#CVA
#YASH on CPAP
#Anxiety/depression
#Macular degeneration
#Narcolepsy
#ADHD
#Appendectomy
#Right AV fistula
#TURP
#Knee arthroscopic surgery
DVT Prophylaxis: SCDs. Heparin subq
Code Status: Full Code
Total discharge time spent to see the patient, examine the patient, review data and lab results, discuss discharge plan with patient and nursing staff around 67 minutes
Anticipated Discharge: Today
Subjective/Interval History
-
Date of Service: October 19, 2024
No pain issues
No chest pain
No abd pain
Objective Data
-
Labs:
Laboratory Results
10/19/24
07:25
Sodium 138
Potassium 4.9
Chloride 101
Carbon Dioxide 26
BUN 24 H
Creatinine 1.2
Glucose 200 H
Calcium 9.6
Vital Signs:
Vital Signs
Temp Pulse Resp BP Pulse Ox
97.5 F 78 18 176/87 96
10/19/24 07:00 10/19/24 07:00 10/19/24 07:00 10/19/24 07:00 10/19/24 07:00
I&O
10/18/24 10/19/24 10/20/24
06:59 06:59 06:59
Intake Total 1440 / 1440 1330 / 1330
Output Total 250 / 250
Balance 1190 / 1190 1330 / 1330
[2024-10-19] MEDS: LOKELMA 10 GRAM PO (10:09)
--- NOTE | 2024-10-19 10:23 | CM ---
CM reviewed chart, patient seen bedside, for discharge today. Patient confirms he is current with [facility], will continue services upon discharge. IMM reviewed, signed, placed in chart, patient provided with copy. Patient reports his son will be
providing transportation home. CM will continue to follow for all discharge planning needs.
Plan; home with [facility]
[2024-10-19 11:00] VITALS: BP 149/70
[2024-10-19 11:36] LABS: Glucose - Point of Care 183 mg/dl (70-99)
--- NOTE | 2024-10-19 11:40 | W.DCSUMMARY ---
Discharge Summary
Discharge Data
Date of Admission: 10/15/24
Date of Discharge: 10/19/24
-
Pending Results: No
Hospital Course
74 years old male presented with generalized fatigue and weakness over few days duration. He was found to have hypotension and bradycardia with heart rate around 46. Patient had history of renal transplant and was receiving immunosuppressant
therapy. Creatinine on admission was 1.8. He was also noted to have hyperkalemia. Patient was admitted to the hospital. Networker evaluated the patient. Lisinopril was discontinued and his blood pressure medications were held. Blood
pressure improved and his blood pressure medications were adjusted. He was given Lokelma for hyperkalemia. He was noted to have hyperglycemia, insulin dose was adjusted also. Patient complained of epigastric pain. Ultrasound showed
cholelithiasis without signs of cholecystitis. Patient was able to tolerate diet with resolution of discomfort. He did not have nausea. Patient remained hemodynamically stable and was discharged home with home care services in a stable condition.
Discharge Plan
-
Patient Disposition: Home with Home Care
Discharge Diagnosis/Procedures: Symptomatic hypotension and bradycardia. Resolved. Adjusted blood pressure medications
High potassium/hyperkalemia, resolved
Diet: Diabetic, Carb Controlled
Referrals:
Ben Suarez DO [Family Provider] - in one to two weeks
Francois Watt DO [Active] - in four to six weeks
Prescriptions:
New
carvedilol 3.125 mg Tablet
3.125 mg PO BID Qty: 60 0RF
nifedipine 60 mg Tablet Extended Release
60 mg PO DAILY Qty: 30 0RF
Continued
prednisone 5 mg Tablet
5 mg PO DAILY
mycophenolate sodium 180 mg tablet,delayed release (DR/EC)
720 mg PO BID
atorvastatin [Lipitor] 40 mg Tablet
40 mg PO DAILY
aspirin 81 mg Tablet,Delayed Release (Dr/Ec)
81 mg PO DAILY
omega-3 acid ethyl esters [Lovaza] 1 gram Capsule
2 cap PO BID
magnesium oxide 400 mg magnesium Tablet
400 mg PO DAILY
clopidogrel 75 mg Tablet
75 mg PO DAILY Qty: 90 0RF
gabapentin 300 mg Capsule
300 mg PO HS
tamsulosin 0.4 mg Capsule
0.8 mg PO DAILY Qty: 60 0RF
pantoprazole 40 mg Tablet,Delayed Release (Dr/Ec)
40 mg PO BID 56 Days Qty: 112 0RF
insulin lispro [Humalog KwikPen Insulin] 100 UNIT/ML insulin pen
5 unit SC AC Qty: 0 0RF
tacrolimus 1 mg Capsule
2 mg PO Q12H
clonazepam 1 mg tablet
1 mg PO BIDPRN PRN (Reason: anxiety)
midodrine 5 mg Tablet
5 mg PO TIDPRN PRN (Reason: low SBP)
Changed
insulin glargine [Lantus Solostar U-100 Insulin] 100 unit/mL (3 mL) Insulin Pen
30 unit SC HS Qty: 0 0RF
Discontinued
carvedilol 6.25 mg Tablet
6.25 mg PO BID
furosemide 20 mg Tablet
20 mg PO DAILY Qty: 30 0RF
nifedipine 60 mg Tablet Extended Release
60 mg PO DAILY Qty: 30 0RF
lisinopril 10 mg Tablet
10 mg PO DAILY Qty: 30 0RF
nifedipine 30 mg Tablet Extended Release
30 mg PO HS Qty: 30 1RF
ibuprofen 600 mg Tablet
600 mg PO TIDPRN PRN (Reason: mild pain)
Discharge Orders:
Discharge Patient (As Directed); Ordered 10/19/24
Ordered By: Elham Manuel
Discharge Date and Time
Print Language: MAORI
[2024-10-19] MEDS: KLONOPIN 1 MG PO (11:50)
[2024-10-19] MEDS: NOVOLOG FLEXPEN-MODERATE RESISTANCE 1 UNITS SC (12:51)
[2024-10-19 15:00] VITALS: BP 105/50
--- NOTE | 2024-10-19 15:31 | W.PN.NEPH.PH ---
Today's Communication / Plan
-
ok for d/c
Assessment/Plan
-
74-year-old male history of ESRD from diabetic nephropathy s/p renal transplant (donor daughter) in 10/2022 at [place], MMF, prednisone and monthly Belatacept for ACR in biopsy in 04/2023 last dose in Dec, labile BPs with significant
orthostatic hypotension with autonomic dysfucntion related to diabetes, hyperlipidemia, insulin-dependent diabetes, recent R transmet amputation presents to ED on 09/25 complaining of confusion, weakness and fatigue. Patient was discharged on
October 11 was admitted for diarrhea and norovirus. He had heme positive stools as well was transfused and upper endoscopy showed gastric ulcer. Simultaneously he was treated for sepsis and a urine infection Enterococcus.
His cr baseline was at 1.3-1.5. Although discharged a few days ago with a creatinine of 1.1. He follows with with Dr Villasenor.
He presents today with hypotension systolic blood pressure 70s. And a creatinine of 1.8.
Renal consult for acute kidney injury and transplant management
Assessment:
Acute kidney injury creatinine of 1.9.
Hypotension
History of enterococcal bacteremia and UTI
SHERRY on CKD III-baseline cr 1.3-1.5
ESRD-D nephropathy s/p LR KTP(daughter) 10/2022 at [place]
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
Heme Positive Stools previous admissions in September 2024
b/l LE Wounds
ASCVD / PAD
Benign Hypertension
Anxiety
h/o syncope from severe orthostatic hypotension
-DM2-with microvascular complications
Anxiety, Insomnia
BPH
Plan:
Creatinine stable at 1.2 , now at baseline remains nonoliguric
Hyperkalemia stable with daily Lokelma
cont to hodl ACEI
Continue immunosuppressive therapy tacrolimus/prednisone/mycophenolate. Most recent tacrolimus level 5.8 as of September 27, 2024
BP stable on Procardia and BB
allow permissive HTN with sig h/o orthostatic hypotension -probably ~150 is acceptable
f/u nephro after d/c
-
-
Date of Service: October 19, 2024
CC / HPI / ROS
-
Chief Complaint:
Acute kidney injury
History of Present Illness:
Liver transplant on chronic immunosuppression therapy with tacrolimus prednisone and mycophenolate
Hemodynamically more stable
Creatinine down to 1.2
Hyperkalemia stable at 4.9
Review of Systems:
Nonoliguric
No fever
feels well
no cp or sob
Labs
-
Labs:
WBC 8.5 10^3/uL (4.8-10.8) 10/18/24 06:57
RBC 3.97 10^6/uL (4.70-6.10) L 10/18/24 06:57
Hgb 11.0 g/dL (13.0-18.0) L 10/18/24 06:57
Hct 34.5 % (39.0-52.0) L 10/18/24 06:57
Plt Count 177 10^3/uL (130-400) 10/18/24 06:57
Sodium 138 mmol/L (135-145) 10/19/24 07:25
Potassium 4.9 mmol/L (3.5-5.1) 10/19/24 07:25
Chloride 101 mmol/L (98-107) 10/19/24 07:25
Carbon Dioxide 26 mmol/L (22-30) 10/19/24 07:25
BUN 24 mg/dl (9-20) H 10/19/24 07:25
Creatinine 1.2 mg/dL (0.7-1.3) 10/19/24 07:25
eGFR > 60.00 10/19/24 07:25
Glucose 200 mg/dl (70-99) H 10/19/24 07:25
Calcium 9.6 mg/dl (8.4-10.2) 10/19/24 07:25
Albumin 4.3 g/dl (3.5-5.0) 10/18/24 02:13
Physical Exam
-
Vital Signs:
Vital Signs
Temp Pulse Resp BP Pulse Ox
97.7 F 76 18 149/70 95
10/19/24 11:00 10/19/24 11:00 10/19/24 11:00 10/19/24 11:00 10/19/24 11:00
Cardiovascular:: Regular rate and rhythm
Respiratory:: Bilateral: CTA
Lung Excursion:: Normal
Abdomen:: Nontender and Soft
Bowel Sounds:: Normal
Extremity Edema:: None: Bilateral:
Davenport Catheter: No
== END 2024-10-19 17:00 | disposition home health service (06) | DRG 699 ==
LOC: 4 WEST ACU 16:29
PROVIDERS: Clinical Nurse Specialist Family Health; Nurse Practitioner Family; ADMITTING PHYSICIAN Hospitalist; ATTENDING PHYSICIAN Internal Medicine; CONSULT PHYSICIAN Internal Medicine Nephrology; EMERGENCY PHYSICIAN Student in an Organized Health Care Education/Training Program; FAMILY PHYSICIAN Internal Medicine
DX: T86.19 Other complication of kidney transplant (principal); D84.821 Immunodeficiency due to drugs; N25.81 Secondary hyperparathyroidism of renal origin; N17.9 Acute kidney failure, unspecified; I50.30 Unspecified diastolic (congestive) heart failure; I13.0 Hypertensive heart and chronic kidney disease with heart failure and stage 1 through stage 4 chronic kidney disease, or unspecified chronic kidney disease; I95.2 Hypotension due to drugs; T46.1X5A Adverse effect of calcium-channel blockers, initial encounter; R00.1 Bradycardia, unspecified; E87.5 Hyperkalemia; N18.30 Chronic kidney disease, stage 3 unspecified; Y83.0 Surgical operation with transplant of whole organ as the cause of abnormal reaction of the patient, or of later complication, without mention of misadventure at the time of the procedure; N40.0 Benign prostatic hyperplasia without lower urinary tract symptoms; G47.33 Obstructive sleep apnea (adult) (pediatric); I25.10 Atherosclerotic heart disease of native coronary artery without angina pectoris; G47.419 Narcolepsy without cataplexy; F90.9 Attention-deficit hyperactivity disorder, unspecified type; E11.22 Type 2 diabetes mellitus with diabetic chronic kidney disease; F41.9 Anxiety disorder, unspecified; E11.65 Type 2 diabetes mellitus with hyperglycemia; E78.00 Pure hypercholesterolemia, unspecified; Z79.624 Long term (current) use of inhibitors of nucleotide synthesis; Z79.621 Long term (current) use of calcineurin inhibitor; Z87.891 Personal history of nicotine dependence; Z86.73 Personal history of transient ischemic attack (TIA), and cerebral infarction without residual deficits; Z79.82 Long term (current) use of aspirin; Z79.4 Long term (current) use of insulin; Z79.52 Long term (current) use of systemic steroids; Z79.02 Long term (current) use of antithrombotics/antiplatelets; Z79.60 Long term (current) use of unspecified immunomodulators and immunosuppressants; Z79.899 Other long term (current) drug therapy
CPT/HCPCS: 76700; 80048; 80053; 81003; 81015; 82962; 84132; 84484; 85025; 85027; 93005; 97163; 97167; 99285

== ENCOUNTER → 2024-11-09 13:34 | Outpatient (REF) | payer MEDICARE, OTHER, SELFPAY | LOC: RAD 13:34 | PROVIDERS: ATTENDING PHYSICIAN Surgery Vascular Surgery | DX: I73.9 Peripheral vascular disease, unspecified (principal) | CPT/HCPCS: 93922; 93925 ==

== ENCOUNTER → 2024-12-23 10:10 | Outpatient (REF) | payer MEDICARE, OTHER, SELFPAY ==
[2024-12-23 11:08] LABS: Hemoglobin 14.5 g/dL (13.0-18.0); Mean Corp Hgb Conc. 31.5 g/dL (33.0-37.0); Mean Corpuscular Hgb 26.9 pg (27.0-31.0); Mean Corpuscular Volume 85.2 fL (80.0-94.0); Mean Platelet Volume 12.3 fL (7.4-10.4); Platelet Count 240 10^3/uL (130-400); Red Cell Dist. Width 15.3 % (11.5-14.5); White Blood Cell Count 9.2 10^3/uL (4.8-10.8)
[2024-12-23 11:59] LABS: Albumin 5.2 g/dl (3.5-5.0); Blood Urea Nitrogen 36 mg/dl (9-20); Calcium 9.5 mg/dl (8.4-10.2); Carbon Dioxide 21 mmol/L (22-30); Chloride 107 mmol/L (98-107); Glucose 150 mg/dl (70-99); Magnesium 1.7 mg/dl (1.6-2.3); Phosphorus 3.6 mg/dl (2.5-4.5); Potassium 5.2 mmol/L (3.5-5.1); Sodium 141 mmol/L (135-145)
[2024-12-23 12:11] LABS: PSA, Total - Screen 6.84 ng/ml (0.0-4.0)
[2024-12-25 13:01] LABS: Tacrolimus (Prograft - FK506) 17.6 ng/mL
== END ==
LOC: REG 10:10
PROVIDERS: ATTENDING PHYSICIAN Internal Medicine; FAMILY PHYSICIAN Internal Medicine
DX: Z94.0 Kidney transplant status (principal); Z12.5 Encounter for screening for malignant neoplasm of prostate
CPT/HCPCS: 36415; 80069; 80197; 83735; 83970; 85027; G0103

== ENCOUNTER 2024-12-28 22:04 | Inpatient (IN) | payer MEDICARE, OTHER, SELFPAY ==
[2024-12-28] VITALS (13 sets, daily range): BP systolic 67–146; BP diastolic 42–80; BMI 27.1; BMI 26.1
[2024-12-28 13:01] LABS: Glucose - Point of Care 160 mg/dl (70-99)
[2024-12-28] MEDS: NSS 1000 IV (13:42)
[2024-12-28 13:58] LABS: % Basophils 0.1 % (0-2); % Eosinophils 0.1 % (0-6); % Immature Granulocytes 0.4 % (0-0.5); % Lymphocytes 5.7 % (20.5-51.1); % Monocytes 4.6 % (1.7-9.3); % Neutrophils 89.1 % (42.2-75.2); Absolute Immature Granulocytes 0.1 10^3/uL (0-0.05); Absolute Monocytes 0.8 10^3/uL (0.1-0.6); Absolute Neutrophils 15.5 10^3/uL (1.4-6.5); Hematocrit 42.8 % (39.0-52.0); Hemoglobin 13.7 g/dL (13.0-18.0); Mean Corpuscular Hgb 26.4 pg (27.0-31.0); Mean Corpuscular Volume 82.6 fL (80.0-94.0); Nucleated Red Blood Cells % 0 % (-); Platelet Count 220 10^3/uL (130-400); Red Blood Cell Count 5.18 10^6/uL (4.70-6.10); Red Cell Dist. Width 15.3 % (11.5-14.5); White Blood Cell Count 17.3 10^3/uL (4.8-10.8)
[2024-12-28 14:15] LABS: ALT (SGPT) 22 U/L (0-50); AST (SGOT) 17 U/L (17-59); Albumin 4.8 g/dl (3.5-5.0); Alkaline Phosphatase 123 U/L (38-126); Blood Urea Nitrogen 53 mg/dl (9-20); Calcium 9.5 mg/dl (8.4-10.2); Carbon Dioxide 25 mmol/L (22-30); Chloride 103 mmol/L (98-107); Estimated Creatinine Clearance 31 ml/min; Glucose 161 mg/dl (70-99); Potassium 3.7 mmol/L (3.5-5.1); Sodium 142 mmol/L (135-145); Total Bilirubin 0.4 mg/dl (0.2-1.3); eGFR 27.97
[2024-12-28 16:23] LABS: Lactic Acid 1.9 mmol/L (0.7-2.0)
[2024-12-28 16:58] LABS: Urine Albumin 3+ (Neg - Trace); Urine Bilirubin Negative (Negative); Urine Character Slightly Cloudy (Clear); Urine Color Yellow; Urine Glucose 1+ (Negative); Urine Ketone Negative (Negative); Urine Leukocyte 1+ (Negative); Urine Nitrite Negative (Negative); Urine Occult Blood Negative (Negative); Urine Urobilinogen Negative (Neg - 1+)
--- NOTE | 2024-12-28 17:23 | ED.GENMED ---
History of Present Illness
General
Chief Complaint: Fainting/Passed Out
Time Seen by Provider: 12/28/24 12:54
History of Present Illness
History of Present Illness:
Note:
CHIEF COMPLAINT(S)
Vomiting, diarrhea, and fainting.
HISTORY OF PRESENT ILLNESS
The patient is a 74-year-old male presenting with vomiting and diarrhea that started late last night. Initially, there was significant flatulence followed by diarrhea. The patient also reported passing blood in the stool. This morning, the patient
experienced fainting episodes, coinciding with vomiting or diarrhea. The patient currently exhibits abdominal pain, described as severe last night, but no significant tenderness upon examination. No recent antibiotic use was stated. Their recent
history includes eating and drinking without issues before symptom onset.
PHYSICAL EXAM
- General: The patient appears fatigued but not in acute distress.
- Abdominal: Soft and non-tender.
- Respiratory: Lungs clear on auscultation.
- Cardiovascular: Heart with regular rhythm.
- Neurological: No neck or spinal pain reported.
- Cranial: Mild swelling and bruising across the nasal bridge without significant deformity or septal hematoma.
- Musculoskeletal: Digital amputation of all toes, sites clean and dry with no evidence of infection.
- Nursing notes reviewed and vital signs reviewed.
PLAN
- Initiate intravenous fluids administration.
- Obtain blood samples for laboratory work, including a complete blood count.
- Conduct computed tomography scan of the patients head to rule out intracranial bleeding due to fainting and facial trauma.
- Consider collecting stool samples for testing, especially given the patients immunocompromised status post-kidney transplant. If stool culture is positive, initiate appropriate antibiotic therapy.
- Continuously reassess patient�s status, focusing on hydration and resolution of gastrointestinal symptoms.
DIFFERENTIAL DIAGNOSIS
The Differential Diagnosis includes, in no particular order and is not limited to:
1. Gastroenteritis
2. Food poisoning
3. Viral infection
4. Bacterial gastroenteritis
5. Dehydration-induced syncope
6. Hypotension-induced syncope
7. Hemorrhagic gastroenteritis
8. Electrolyte imbalance
9. Diverticulitis
10. Clostridium difficile infection
EKG
My independent EKG interpretation is:
- Rhythm: Normal sinus rhythm
- Heart rate: 68 bpm
- ST changes: Lateral ST change compatible with likely Left Ventricular Hypertrophy (LVH)
- T-wave: Mildly peaked T-waves in the precordial leads
- Comparison: No ischemic changes noted; comparable to the EKG of September 2024 except for T-wave changes
CARE-UPDATE
12/28/24 - 15:34
Leukocytosis noted, potentially due to infection or stress response related to GI fluid loss and syncope. Significant SHERRY with creatinine at 2.4, elevated from recent baseline of 1.6 five days ago, and normally in low one range. Awaiting CT
abdomen/pelvis to assess for hydronephrosis or colitis. Continuing IV fluids due to immunocompromised status post-renal transplant two years prior. Blood cultures and lactic acid will be ordered. Admission to hospital planned. Currently no
antibiotics indicated, but will reassess if patients condition changes.
Disposition:
DIAGNOSIS
- Gastroenteritis (ICD-10: A09)
- Syncope
- SHERRY
- Hx of renal transplant
SUMMARY OF ENCOUNTER
The patient, a 74-year-old male with a history of renal transplant from two years ago, presented to the emergency department with symptoms of vomiting and diarrhea that began last night. Additionally, the patient experienced fainting spells thought
to be due to hypovolemia. Notable findings include severe inflammation of the small bowel, indicative of gastroenteritis. The patients acute kidney injury (SHERRY) is likely influenced by hypovolemia secondary to diarrhea and vomiting.
DISPOSITION
Admit
CONSIDERATION FOR ADMISSION
The patient will be admitted for intravenous (IV) fluid administration to address dehydration and for further management and observation particularly due to the patients immunocompromised status post-transplant.
ASSESSMENT
The presentation suggests gastroenteritis, likely causing the patients symptoms, including vomiting, diarrhea, and subsequent syncope due to hypovolemia. The patients SHERRY is also a concern given the history of kidney transplant.
PLAN
- Admit the patient for continuous IV fluid therapy.
- Order stool specimen tests to identify any pathogens given the recent hospitalization and symptoms.
- Engage nephrology (kidney team) to monitor kidney function and response to hydration therapy.
INDEPENDENT INTERPRETATION OF TESTS
- CT scan shows severe inflammation of the small bowel, consistent with gastroenteritis.
- CBC indicates leukocytosis, suggesting an infection or a stress response from fluid loss.
- Renal function tests shows a significant rise in creatinine levels, indicative of acute kidney injury.
MEDICAL DECISION MAKING
Number and Complexity of Problems Addressed: The patient presented with symptoms pointing to potential gastroenteritis, SHERRY, and complications due to prior renal transplantation, requiring in-depth assessment and careful management.
Data: Tests conducted included imaging and blood work, which revealed inflammation, leukocytosis, and SHERRY. These were analyzed to confirm gastroenteritis and plan fluid resuscitation.
Risk: Due to the patients immunocompromised status and kidney transplant history, hospitalization was deemed necessary. The potential for escalated care, nephrology consultation, and IV fluid management underscored the need for admission.
Past History
Past History
ED Past Medical History: CVA, HTN, Hypercholesterolemia, IDDM, Renal failure (Dialysis and saturday, Right arm fistula), Psychiatric ( anxiety, depression) and Other (Diabetic neuropathy, meningitis,UTI, macular degeneration, diabetic
nephropathy, Narcolepsy, )
ED Past Surgical History: Appendectomy and Other (Right AV fistula. Renal transplant October 2022)
Social History
Tobacco: Former smoker
Alcohol: None
Drug: None
Personal:
Living: with family
Employment: Employed
Family History
Family History: Diabetes
Phy Exam
Physical Exam
Physical Exam:
.
Course
Orders/Labs/Results
Orders:
Orders
12/28/24 12:59
Electrocardiogram (*1) Urgent
Reason for Study: Syncope
EKG- Treatment ONCE
12/28/24 13:07
0.9% Sodium Chloride 1000 ml [Nss] 1,000 ml IV BOLUS
12/28/24 13:08
CT Head W/o Iv Contrast Urgent
Comment:
Reason For Exam: syncope/head injury
12/28/24 13:43
Complete Blood Count/With Diff Urgent
Comprehensive Metabolic Panel Urgent
12/28/24 15:34
CT Abd/pel Without Iv Or Oral Urgent
Comment:
Reason For Exam: N/V/D, SHERRY, renal transplant
12/28/24 16:02
Lactic Acid Urgent
Blood Culture Q30M
OWEN Source: Blood/Venous
Specimen Description:
12/28/24 16:03
Blood Culture Q30M
OWEN Source: Blood/Venous
Specimen Description:
12/28/24 16:37
Urinalysis Reflex To Culture Urgent
Date Specimen was Collected: 12/28/24
Time Specimen was Collected: 16:36
Urine Microscopic Reflex Cult Urgent
Urine Culture Urgent
OWEN Source: U
Specimen Description:
Date Specimen was Collected: 12/28/24
Time Specimen was Collected: 16:36
12/28/24 17:17
Tacrolimus [Prograf] 2 mg PO NOW STA
12/28/24 17:24
C DIFF [C difficile Antigen & Toxins] Urgent
OWEN Source: Feces/Stool
Specimen Description:
Stool Culture Urgent
OWEN Source: Feces/Stool
Specimen Description:
Abnormal Lab Results
12/28/24 12/28/24 12/28/24
13:00 13:43 16:37
WBC 17.3 H 10^3/uL
(4.8-10.8)
MCH 26.4 L pg
(27.0-31.0)
MCHC 32.0 L g/dL
(33.0-37.0)
RDW 15.3 H %
(11.5-14.5)
MPV 11.0 H fL
(7.4-10.4)
Abs Immat Gran (auto) 0.1 H 10^3/uL
(0-0.05)
Absolute Neuts (auto) 15.5 H 10^3/uL
(1.4-6.5)
Absolute Lymphs (auto) 1.0 L 10^3/uL
(1.2-3.4)
Absolute Monos (auto) 0.8 H 10^3/uL
(0.1-0.6)
Neutrophils % 89.1 H %
(42.2-75.2)
Lymphocytes % 5.7 L %
(20.5-51.1)
BUN 53 H mg/dl
(9-20)
Creatinine 2.4 H mg/dL
(0.7-1.3)
Glucose 161 H mg/dl
(70-99)
Leukocyte Esterase Rfl 1+ A
(Negative)
Urine Bacteria (Reflex) Few A
(Negative)
Urine Glucose 1+ A
(Negative)
Urine Albumin (Reflex) 3+ A
(Neg - Trace)
POC Glucose 160 H mg/dl
(70-99)
12/28/24 13:43
12/28/24 13:43
Vital Signs
Initial and Last Documented VS:
Initial Vital Signs
Temp Pulse Resp BP Pulse Ox
97.6 F 69 16 103/55 97
12/28/24 12:46 12/28/24 12:46 12/28/24 12:46 12/28/24 12:46 12/28/24 12:46
Last Documented Vital Signs
Temp Pulse Resp BP Pulse Ox
97.6 F 69 18 103/55 96
12/28/24 12:46 12/28/24 12:57 12/28/24 12:57 12/28/24 12:46 12/28/24 12:57
*Critical Care Note
Total Time (30-74mins, 75-104mins- exclusive of procedures): Not Applicable
ED Attending Note
-
Portions of this chart may have been created with voice recognition software.� Occasional wrong word or��sound alike� substitutions may have occurred due to the inherent limitations of voice recognition software.
Discharge Plan
Departure
Patient Disposition: Admit
Date of Disposition: 12/28/24
Time of Disposition: 17:23
Admit to: Med/Surg
Presentation/result/management discussed w/ accepting MD/DO: Hospitalist
Discharge Problem:
Acute kidney injury, Syncope, Enteritis
Prescriptions:
No Action
prednisone 5 mg Tablet
5 mg PO DAILY
mycophenolate sodium 180 mg tablet,delayed release (DR/EC)
720 mg PO BID
atorvastatin [Lipitor] 40 mg Tablet
40 mg PO DAILY
aspirin 81 mg Tablet,Delayed Release (Dr/Ec)
81 mg PO DAILY
omega-3 acid ethyl esters [Lovaza] 1 gram Capsule
2 cap PO BID
magnesium oxide 400 mg magnesium Tablet
400 mg PO BID
Patient Comments:
12/28 REGIONAL EDUCATION MANAGER: PER PATIENT, HE TAKES IT BID, RX FOR DAILY
gabapentin 300 mg Capsule
300 mg PO HS
tamsulosin 0.4 mg Capsule
0.8 mg PO DAILY Qty: 60 0RF
tacrolimus 1 mg Capsule
2 mg PO Q12H
clonazepam 1 mg tablet
1 mg PO BIDPRN PRN (Reason: anxiety)
midodrine 5 mg Tablet
5 mg PO TIDPRN PRN (Reason: low SBP)
Patient Comments:
12/28 REGIONAL EDUCATION MANAGER - Patient unsure if he's taking medication; per medication dispense history, patient last had it filled 12/24
insulin glargine [Lantus Solostar U-100 Insulin] 100 unit/mL (3 mL) Insulin Pen
30 unit SC HS Qty: 0 0RF
clopidogrel 75 mg tablet
75 mg PO DAILY
insulin lispro [Humalog KwikPen Insulin] 100 UNIT/ML insulin pen
10 unit SC AC
hydralazine 10 mg Tablet
10 mg PO TID
Patient Comments:
12/28 REGIONAL EDUCATION MANAGER: Per patient, conflicting dose from PCP vs. specialist (25 mg TID vs. 10 mg TID) - however, patient is taking 10 mg TID
metoprolol succinate 25 mg tablet extended release 24 hr
25 mg PO DAILY
Gemtesa 75 mg tablet
75 mg PO DAILY
Referrals:
Ben Suarez DO [Family Provider, Internal Medicine]
Interventions
Interventions:
*Risk Screen - Suicide Last Done: 12/28/24 12:46
*General Assessment Last Done: 12/28/24 12:46
*Neglect/Abuse Screening Last Done: 12/28/24 12:46
*ED COVID-19 Vaccine History Last Done: 12/28/24 12:46
ED- Cardiac Assessment Last Done: 12/28/24 16:27
ED- Neurological Assessment Last Done: 12/28/24 16:27
Discharge Date and Time
Print Language: NIGERIAN
[2024-12-28] MEDS: PROGRAF 2 MG PO (17:44)
[2024-12-28 18:05] LABS: Urine Bacteria Few (Negative); Urine Calcium Oxalate Crystals Present; Urine Hyaline Cast >15 /LPF (0-2); Urine Red Blood Cell 0-2 /HPF (0-2)
--- NOTE | 2024-12-28 19:00 | EDRN ---
Report received, introduced myself to patient who needed to use restroom, placed non-slip socks on patient he ambulated into restroom without a difficulty, he asked about dinner, provided him with a turkey lunch box, patient aware waiting on
admission orders.
--- NOTE | 2024-12-28 20:16 | HPS.HSE ---
Family Physician
-
Family Physician: Ben Suarez
Chief Complaint
-
N/V/ D , felt passing out
History of Present Illness
HPI
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
- pw vomiting and diarrhea that started late last night preceeded by significant flatulence followed by diarrhea.
- reported passing blood in the stool
- felt fainting episodes, coinciding with vomiting or diarrhea.
- abdominal pain, described as severe last night, but no significant tenderness upon examination.
- No recent antibiotic use was stated.
- recent HX eating and drinking without issues before symptom onset.
Medical History
Past Medical History
Past Medical History: Reports Other
Additional Past Medical History:
Diastolic heart failure new Dx September 2024
09/2024 admit sepsis POA 2/2 Enterococcal bacteremia and UTI
Blood culture 2 sets grew Enterococcus faecalis, negative since 09/28 treated with Zosyn> Rocephin and ampicillin
UTI grew enterococci faecalis
Urinary retention
GI bleed requiring 3 units due to gastritis September 2024
CKD 3B
ESRD s/p Renal Transplant
DM-II with Neuropathy and Nephropathy
ASCVD (CAD, PAD)
Hypertension
Orthostatic Hypotension
Autonomic Insufficiency
Narcolepsy
Depression
YASH
Past Surgical History: Reports Other
Additional Past Surgical History:
R Popliteal Artery Angioplasty (08/18/24)
Right Transmetatarsal Amputation (08/21/24)
Bilateral Foot Wound Debridement (08/21/24)
Renal Transplant
RUE AVF
Appendectomy
TTE without vegetation September 2024
Social History
Tobacco: Former Smoker (Quit smoking 15 years ago. Approx 40 pack years total use.)
Alcohol: None
Drug: None
Employment: Disabled
Family History
Family History: Other (Father: Brain Tumor Mother: PUD Sister: Cancer (unknown type))
Allergies / Home Medications
Allergies reflects when Allergies were last updated in [employer].
Home Medications with original date entered in [facility]
Allergy/Medication List:
Allergies
Allergy/AdvReac Type Severity Reaction Status Date / Time
No Known Allergies Allergy Verified 09/25/24 21:15
Home Medications
carvedilol 6.25 mg tablet 6.25 mg PO BID Heart Disease/Condition 07/23/23
prednisone 5 mg tablet 5 mg PO DAILY Anti-Inflammatory 07/23/23
aspirin 81 mg tablet,delayed release 81 mg PO DAILY Blood Clot Prevention/Tx 08/14/24
atorvastatin 40 mg tablet (Lipitor) 40 mg PO DAILY High Cholesterol 08/14/24
magnesium oxide 400 mg PO DAILY Supplement 08/14/24
mycophenolate sodium 180 mg tablet,delayed release 720 mg PO BID IMMUNOSUPPRESSANT 08/14/24
omega-3 acid ethyl esters 1 gram capsule (Lovaza) 2 cap PO BID Supplement 08/14/24
clopidogrel 75 mg tablet 75 mg PO DAILY #90 tabs 08/18/24
insulin glargine 100 unit/mL (3 mL) subcutaneous pen (Lantus Solostar U-100 Insulin) 20 unit (0.2 mL) SC HS diabetes #0 mL 08/25/24
gabapentin 300 mg capsule 300 mg PO HS foot pain 10/04/24
furosemide 20 mg tablet 20 mg PO DAILY #30 tabs 10/07/24
lisinopril 10 mg tablet 10 mg PO DAILY #30 tabs 10/07/24
nifedipine 60 mg tablet,extended release 60 mg PO DAILY #30 tabs 10/07/24
pantoprazole 40 mg tablet,delayed release 40 mg PO BID 8 weeks #112 tabs 10/07/24
tamsulosin 0.4 mg capsule 0.8 mg (2 x 0.4 mg) PO DAILY #60 caps 10/07/24
insulin lispro 100 unit/mL subcutaneous pen (Humalog KwikPen (U-100) Insulin) 5 unit (0.05 mL) SC AC Diabetes #0 mL 10/11/24
nifedipine 30 mg tablet,extended release 30 mg PO HS #30 tabs 10/11/24
clonazepam 1 mg tablet 1 mg PO BIDPRN PRN anxiety 10/15/24
tacrolimus 1 mg capsule, immediate-release 2 mg PO Q12H 10/15/24
Review of Systems
-
Constitutional: Reports No Symptoms
EENT: Reports No Symptoms
Respiratory: Reports No Symptoms
Cardiac: Reports No Symptoms
Abdomen/GI: Reports See HPI, Abdominal Pain, Nausea, Vomiting and Diarrhea
: Reports No Symptoms
Musculoskeletal: Reports No Symptoms
Skin: Reports No Symptoms
Neurological: Reports No Symptoms
Endocrine: Reports No Symptoms
Hematologic/Lymphatic: Reports No Symptoms
Psych: Reports No Symptoms
Physical Exam
Vital Signs
Vital Signs
Temp Pulse Resp BP Pulse Ox
97.6 F 69 18 103/55 96
12/28/24 12:46 12/28/24 12:57 12/28/24 12:57 12/28/24 12:46 12/28/24 12:57
Physical Exam
General: Comfortable and Conversant; No Pain, Fever or Chills
HEENT: NormoCephalic, Anicteric, PERRLA, Elrama Conjunctivae, No Ptosis and Other (Dry oral mucosa)
Respiratory: Clear; No Wheezes, Rales or Rhonchi
Cardiac: S1/S2 and Bradycardia (Sinus 45 bpm); No Murmur, Rub or Gallop
Breast: Deferred by me
GI: Soft, Non Tender, Non Distended and Normal Bowel Sounds
Rectal: Deferred by Provider
Genito-urinary: Deferred by me
Musculoskeletal: No Clubbing, No Cyanosis, No Edema and Other (Offloading front of foot boot present to right lower extremity)
Skin: Warm, Dry and IV/Catheter Site (Right upper extremity AV fistula present); No Rash
Neuro: AO x 3, No Motor Deficits, Cranial Nerves Intact and No Sensory Deficits; No Slurred Speech, Facial Droop, Tremors or Sedated
Laboratory Results
-
12/28/24 13:43
12/28/24 13:43
Laboratory Results
Lactic Acid 1.9 mmol/L (0.7-2.0) 12/28/24 16:02
Total Bilirubin 0.4 mg/dl (0.2-1.3) 12/28/24 13:43
AST 17 U/L (17-59) 12/28/24 13:43
ALT 22 U/L (0-50) 12/28/24 13:43
Alkaline Phosphatase 123 U/L (38-126) 12/28/24 13:43
Data Reviewed
-
CT Scan: Report Reviewed by me
Lab Data: Labs Reviewed by me
Old Records: Reviewed
Impression/Plan
-
Vital Signs
Temp Pulse Resp BP Pulse Ox
97.6 F 68 13 140/71 98
12/28/24 12:46 12/28/24 20:17 12/28/24 20:17 12/28/24 20:17 12/28/24 20:17
Laboratory Tests
12/23/24 12/28/24 12/28/24
10:41 13:43 16:02
WBC 17.3 H
BUN 53 H
Creatinine 1.6 H 2.4 H
eGFR 45.50 27.97
Lactic Acid 1.9
10/18/24 12/23/24 12/28/24
06:57 10:41 13:43
Hgb 11.[address] Head W/o Iv Contrast
There are mild changes of cortical atrophy with no acute findings
CT Abd/pel Without Iv Or Oral
1. SEVERE DIFFUSE DISTENTION of SMALL BOWEL LOOPS which is most likely secondary to an ACUTE ENTERITIS. An adynamic ileus or distal small bowel obstruction are considered less likely.
2. Right lower quadrant renal transplant in place.
3. Severe chronic bilateral renal disease.
4. Mild splenomegaly.
5. 1.2 cm left adrenal adenoma.
6. Mildly enlarged prostate gland.
7. Moderate distention of the urinary bladder.
ASSESSMENT & PLANT
Immunosuppressed host
Acute gastroenteritis associated adynamic ileus or distal small bowel obstruction
Hgb 13.7
HX nonbleeding gastric ulcer with no stigmata of bleeding as well as gastritis
HX Blood loss anemia s/p 3 units PRBC September 2024 admit
HX Norovirus 10/07/2024 resolved while inpatient
- stool for HoB stool
- stool for C Diff and Cx
- Noro Virus
- Hold DAPL for now
- PPI BID
- NPO except Meds for adynamic ileus or distal small bowel obstruction
- GI consult
SHERRY due to dehydration from N/V/D GI Loss
- Underlying CKD3b
- Has Right arm AV fistula
- HX TPK on immunosuppressants
- associated syncope due to contracted vol and autonomic insufficiency
- check Tacrolimus level
- cont Tacrolimus/Prednisone/Mycophenolate.
- Renal consult
Hypotensive on arrival
Normotensive s/p NS 1 L at ER
HX Chronic hypotension on PRN Midodrine
- Hold Metoprolol XL for now
- c/w PRN Midodrine
- fall precaution
HX urinary retention
-Patient currently voiding without difficulty
-c/w Flomax 0.8 mg due to current hypotension
-Monitor urine output
HX Chronic HFpEF new Dx September 2024
- daily I/O and Wts
- Hold Lasix 20 mg daily
HX ASCVD ( PAD and CVA)
- PAD, Stable.
- Moderate diffuse subcutaneous edema in both lower legs.
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
- Patient was told to be nonweightbearing right leg and left leg weightbearing for transfers only as of early August 2023
-Patient follows with podiatry Dr. Andrade Valencia
Neuropathic pain RLE from recent surgery
- on WAREHOUSER gabapentin 300 mg twice daily as needed patient takes only 300 mg at bedtime
- on Tylenol
IDDM
- Hold Aspart
- decreed Lantus to [address] of 20 units HS (home dose)
- add ISS low
Anxiety, Stable.
- c/w clonazepam 1 mg twice daily PRN.
Other PMH:
YASH on CPAP
macular degeneration
narcolepsy
ADHD
DVT Px: contraindicated due to PVD and ruling out GIB
Full Code:
IMU
[2024-12-28] MEDS: NEURONTIN 300 MG PO (23:12)
[2024-12-28] MEDS: LANTUS 0.1 UNITS SC (23:13)
[2024-12-28] MEDS: KLONOPIN 1 MG PO (23:13)
[2024-12-28] MEDS: ZOSYN 50 IV (23:14)
[2024-12-28 23:22] LABS: Glucose - Point of Care 165 mg/dl (70-99)
--- NOTE | 2024-12-28 23:58 | PTCARENOTE ---
Received patient from ED nurse. Patient aao x3, able to make needs known, denies pain. NSR on the monitor. Patient states he is not nauseous at the moment. RN reviewed use of call feng and need to call with any needs to not to get oob independently
d/to recent synope and dizziness. Understanding verbailzed. Patient states he feels dizzy at times when standing, but that it happens at home as well and is r/to his blood pressure. Assessed for orthostatic BPs: layin/69, 71 sittin/57, 72
standin/42, 74. Patient confirms dizziness during assessment. Confirmed PRN midodrine ordered, however order states to avoid dosing after evening meal or within 4 hours of bedtime. Patient has not had bm or vomiting since arriving to IMU,
emesis bag at bedside if needed. Will monitor bp throughout shift. Call feng within reach. Will continue to monitor patient closely.
[2024-12-29] VITALS (14 sets, daily range): BP systolic 84–182; BP diastolic 55–113; BMI 26.1
[2024-12-29] MEDS: PROGRAF PO (00:10)
[2024-12-29] MEDS: MYFORTIC DELAYED REL. 720 MG PO ×3 (02:12→20:36)
[2024-12-29] MEDS: NOVOLOG FLEXPEN-LOW RESISTANCE SC (03:40)
[2024-12-29] MEDS: ZOSYN 50 IV ×4 (03:46→21:19)
[2024-12-29 05:06] LABS: Hematocrit 41.9 % (39.0-52.0); Hemoglobin 13.5 g/dL (13.0-18.0); Mean Corp Hgb Conc. 32.2 g/dL (33.0-37.0); Mean Corpuscular Hgb 26.4 pg (27.0-31.0); Mean Corpuscular Volume 81.8 fL (80.0-94.0); Mean Platelet Volume 11.2 fL (7.4-10.4); Platelet Count 199 10^3/uL (130-400); Red Blood Cell Count 5.12 10^6/uL (4.70-6.10); Red Cell Dist. Width 15.1 % (11.5-14.5); White Blood Cell Count 14.2 10^3/uL (4.8-10.8)
[2024-12-29 05:20] LABS: Blood Urea Nitrogen 60 mg/dl (9-20); Calcium 9.2 mg/dl (8.4-10.2); Carbon Dioxide 23 mmol/L (22-30); Chloride 104 mmol/L (98-107); Estimated Creatinine Clearance 27 ml/min; Glucose 157 mg/dl (70-99); Sodium 139 mmol/L (135-145); eGFR 24.28
[2024-12-29] MEDS: NOVOLOG FLEXPEN-LOW RESISTANCE 1 UNITS SC ×3 (05:45→16:17)
[2024-12-29 05:55] LABS: Glucose - Point of Care 170 mg/dl (70-99)
--- NOTE | 2024-12-29 06:52 | CON.GI ---
Addendum entered and electronically signed by Wenceslao Parrish MD 12/29/24 12:04:
Patient seen and examined, agree with nurse practitioner note. Patient is a 74-year-old male with past medical history as noted including renal transplant and previous gastric ulcer who presents with acute onset of nausea, vomiting and diarrhea.
He has never had symptoms like this before, and had acute symptoms with voluminous vomiting and diarrhea. There was a question about blood though also had syncope and a cut on his nose. He has been feeling much better now with no further vomiting
or diarrhea. He has some abdominal wall tenderness on exam though otherwise is benign. His studies did come back positive for norovirus.
1. Nausea/vomiting/diarrhea: Consistent with norovirus, with symptoms improving, able to tolerate antirejection medications now. At this point would continue supportive care, IV fluids, antiemetics and fluid resuscitation per nephrology. There
was a question about blood, though was likely more from trauma rather than hematemesis. Hemoglobin remained stable and no signs of bleeding now.
Will sign off for now, please call back with any further questions or signs of significant GI bleeding.
Original Note:
Consultation
-
Date/Time Consultation Requested: 12/28/24 2320
Date/Time Consultation Performed: 12/29/24 0700
Requesting Provider: Vish Hill MD
Performing Provider: ANDREA Gonzales, Yoan Parrish MD
Reason for Consultation: ileus
Medical History
Chief Complaint / HPI
Chief Complaint: nausea, vomiting, diarrhea,
History of Present Illness:
This is a 74 year old male with a past medical history of IDDM, HTN, ESRD (s/p kidney transplant 10/2022), CAD, PAD, anxiety, depression, colon polyps, admitted at in July and underwent right foot amputation with admission in September UTI with
sepsis, heme + stool with EGD noted non bleeding gastric ulcer, diarrhea with norovirus and adjustment of medication. Pt then returned later than month with hypotension, bradycardia, hyperkalemia. Pt was due follow up ad recommended repeat EGD in
November but missed appt due to readmission. Pt now presents with passing out with complaints of vomiting and diarrhea. Pt admits to seeing blood but thought it was related to cut on nose with fall. CT on admission with severe distention of SB
loose with acute enteritis, ileus or distal SBO less likely.
In review with patient he admits to sudden onset of symptoms with mid abdominal pain. nausea, vomiting(large volume non bloody), and diarrhea on Saturday. He also stated rectal bleeding in ER. He denies any recent travel, abx, sick contacts,
tainted foods, or change in medication. He denies any issues with odynophagia, dysphagia, or gerd. He denies any issue with chronic diarrhea and admit to regular bowel habits. On admission noted with WBC 17,300, hbg 13.7, creat 2.4 with slight
rise to 2.7 after admission, glucose 161 normal LFT's with stool studies pending. Pt noted with orthostasis after admission. Hx EGD 09/28/24- non bleeding gastric ulcer no bx with plavix use, gastritis, repeat 8 weeks, colon TA polyps. Last
colonoscopy [address] Newman with TA polyps.
Past Medical History
Past Medical History: CHF (diastolic HF new 09/2024), Renal Failure (CKD), Psychiatric (depression) and Other (NIDDM, HTN, ESRD (s/p kidney transplant 10/2022), CAD, PAD, anxiety, depression, colon polyps, 09/2024-sepsis with enerococcal bacteremia and
UTI, GI bleed- non bleeding gastric ulcer , orthostatic hypotension, automonic insufficiency, narcolepsy, YASH)
Past Surgical History: Other (R Popliteal Artery Angioplasty (08/18/24) Right Transmetatarsal Amputation (08/21/24) Bilateral Foot Wound Debridement (08/21/24) Renal Transplant RUE AVF,Appendectomy)
Social History
Tobacco: Former Smoker
Alcohol: None
Drug: None
Personal:
Living: With Family
Employment: Retired
Family History
Family History: Other (no family history of any GI malignancies)
Allergies / Home Medications
Allergy/AdvReac Type Severity Reaction Status Date / Time
No Known Allergies Allergy Verified 09/25/24 21:15
�Medication �Instructions �Recorded
prednisone 5 mg tablet 5 mg PO DAILY Anti-Inflammatory 07/23/23
aspirin 81 mg tablet,delayed 81 mg PO DAILY Blood Clot 08/14/24
release Prevention/Tx
atorvastatin 40 mg tablet (Lipitor) 40 mg PO DAILY High Cholesterol 08/14/24
magnesium oxide 400 mg PO BID Supplement 08/14/24
mycophenolate sodium 180 mg 720 mg PO BID IMMUNOSUPPRESSANT 08/14/24
tablet,delayed release
omega-3 acid ethyl esters 1 gram 2 cap PO BID Supplement 08/14/24
capsule (Lovaza)
gabapentin 300 mg capsule 300 mg PO HS foot pain 10/04/24
tamsulosin 0.4 mg capsule 0.8 mg (2 x 0.4 mg) PO DAILY #60 10/07/24
caps
clonazepam 1 mg tablet 1 mg PO BIDPRN PRN anxiety 10/15/24
midodrine 5 mg tablet 5 mg PO TIDPRN PRN low SBP 10/15/24
tacrolimus 1 mg capsule, 2 mg PO Q12H KIDNEY TRANSPLANT 10/15/24
immediate-release
insulin glargine 100 unit/mL (3 30 unit (0.3 mL) SC HS diabetes 10/19/24
mL) subcutaneous pen (Lantus #0 mL
Solostar U-100 Insulin)
clopidogrel 75 mg tablet 75 mg PO DAILY Heart 12/28/24
Disease/Condition
hydralazine 10 mg tablet 10 mg PO TID Blood Pressure 12/28/24
insulin lispro 100 unit/mL 10 unit SC AC Diabetes 12/28/24
subcutaneous pen (Humalog KwikPen
(U-100) Insulin)
metoprolol succinate 25 mg 25 mg PO DAILY Blood Pressure 12/28/24
tablet,extended release 24 hr
vibegron 75 mg tablet (Gemtesa) 75 mg PO DAILY OVERACTIVE BLADDER 12/28/24
Review of Systems
-
History Source: Patient
Constitutional: Reports Weight Loss (few lbs with illness )
EENT: Reports Other (cut on nose with fall)
Respiratory: Reports No Symptoms
Cardiac: Reports Syncope
Abdomen/GI: Reports Abdominal Pain, Nausea, Vomiting and Diarrhea
: Reports No Symptoms
Musculoskeletal: Reports Other (muscle weakness )
Skin: Reports No Symptoms
Neurological: Reports Weakness
Endocrine: Reports No Symptoms
Hematologic/Lymphatic: Reports Bleeding (from cut on nose )
Vital Signs
Temp Pulse Resp BP Pulse Ox
97.8 F 65 16 127/58 94
12/29/24 03:20 12/29/24 06:30 12/29/24 06:30 12/29/24 06:00 12/29/24 06:30
Physical Exam
Exam
General: Well Developed, Well Nourished and No Apparent Distress
HEENT: Normocephalic, Anicteric and Other (right side nose )
Respiratory: Clear
Cardiac: Regular Rhythm
GI: Soft
Musculoskeletal: No Clubbing and No Cyanosis
Skin: Warm and Dry
Neuro: Awake, Alert and AO x 3
Psych: Calm
Results
WBC 14.2 10^3/uL (4.8-10.8) H 12/29/24 04:45
Hgb 13.5 g/dL (13.0-18.0) 12/29/24 04:45
Hct 41.9 % (39.0-52.0) 12/29/24 04:45
MCV 81.8 fL (80.0-94.0) 12/29/24 04:45
Plt Count 199 10^3/uL (130-400) 12/29/24 04:45
Absolute Neuts (auto) 15.5 10^3/uL (1.4-6.5) H 12/28/24 13:43
Sodium 139 mmol/L (135-145) 12/29/24 04:45
Potassium 4.0 mmol/L (3.5-5.1) 12/29/24 04:45
Chloride 104 mmol/L (98-107) 12/29/24 04:45
Carbon Dioxide 23 mmol/L (22-30) 12/29/24 04:45
BUN 60 mg/dl (9-20) H 12/29/24 04:45
Creatinine 2.7 mg/dL (0.7-1.3) H 12/29/24 04:45
Calcium 9.2 mg/dl (8.4-10.2) 12/29/24 04:45
Total Bilirubin 0.4 mg/dl (0.2-1.3) 12/28/24 13:43
AST 17 U/L (17-59) 12/28/24 13:43
ALT 22 U/L (0-50) 12/28/24 13:43
Alkaline Phosphatase 123 U/L (38-126) 12/28/24 13:43
Diagnostic Image Results:
12/28/24 CT Abdomen and Pelvis without IV Contrast
1. SEVERE DIFFUSE DISTENTION of SMALL BOWEL LOOPS which is most likely secondary to an ACUTE ENTERITIS. An adynamic ileus or distal small bowel obstruction are considered less likely.
2. Right lower quadrant renal transplant in place.
3. Severe chronic bilateral renal disease.
4. Mild splenomegaly.
5. 1.2 cm left adrenal adenoma.
6. Mildly enlarged prostate gland.
7. Moderate distention of the urinary bladder.
Prior GI Procedures:
EGD: 09/28/24 Ahmad - Normal esophagus.
- Non-bleeding gastric ulcer with no stigmata of
bleeding. Not biopsied due to recent plavix.
- Gastritis. Biopsied.
- Small amount of food residue in fundus
repeat EGD 8 weeks
Colonoscopy: 02/05/22 Newman to IC valve good prep - One 3 mm polyp in the proximal transverse colon,
removed with a cold biopsy forceps. Resected and
retrieved.
- One 2 mm polyp in the distal transverse colon,
removed with a cold biopsy forceps. Resected and
retrieved.
- The examination was otherwise normal.
Assessment / Plan
-
This is a 74 year old male with a past medical history of IDDM, HTN, ESRD (s/p kidney transplant 10/2022), CAD, PAD, anxiety, depression, colon polyps, admitted at in July and underwent right foot amputation with admission in September UTI with
sepsis, heme + stool with EGD noted non bleeding gastric ulcer, diarrhea with norovirus and adjustment of medication. Pt then returned later than month with hypotension, bradycardia, hyperkalemia. Pt was due follow up ad recommended repeat EGD in
November but missed appt due to readmission. Pt now presents with passing out with complaints of vomiting and diarrhea. Pt admits to seeing blood but thought it was related to cut on nose with fall. CT on admission with severe distention of SB
loose with acute enteritis, ileus or distal SBO less likely. In review with patient he admits to sudden onset of symptoms with mid abdominal pain. nausea, vomiting(large volume non bloody), and diarrhea on Saturday. He also stated rectal bleeding
in ER. He denies any recent travel, abx, sick contacts, tainted foods, or change in medication. He denies any issue with chronic diarrhea and admit to regular bowel habits. On admission noted with WBC 17,300, hbg 13.7, creat 2.4 with slight rise
to 2.7 after admission, glucose 161 normal LFT's with stool studies pending. Pt noted with orthostasis after admission. Hx EGD 09/28/24- non bleeding gastric ulcer no bx with plavix use, gastritis, repeat 8 weeks, colon TA polyps. Last
colonoscopy [address] Newman with TA polyps.
-sudden onset of nausea/vomiting and diarrhea with concern for gastroenteritis with severe distention of SB loops on imaging
-? vomiting blood but may have been from fall and nausea laceration
-syncope with fall with nasal injury
-orthostasis after admission
-leukocytosis
-rise in creat with hx renal transplant with chronic immunosuppression
-hx urinary retention with bladder distention on CT
-hx gastric ulcer 09/2024
-prior norovirus 09/2024
other med problems:
IDDM
HTN
ESRD (s/p kidney transplant 10/2022)
CAD
PAD with transmet amp
neuropathy
anxiety/depression
colon polyps
YASH
narcolepsy
ADHD
PLAN:
etiology of sudden onset of nausea/vomiting and diarrhea related to infectious process, obstructive process vs other
check stool studies including norovirus will add Giardia/crypto
monitor for hematemesis/blood in stools -- per patient blood may have been from nasal laceration
trend hbg and stool record
pt states feeling much better
cont abx
reviewed with nursing for urinary retention issues
ok for sips clears and advance slowly monitoring for recurrent vomiting
remains on chronic immunosuppression
for renal eval with rise in creat after admission
OP follow up as did not follow up in November for repeat EGD with hx gastric ulcer-- if signs of active bleeding consider repeat EGD inpatient
-
-
Thank you for consultation and allowing me to participate in the patient's care. Please call the [facility] GI physician during the after hours with any questions or concerns.
--- NOTE | 2024-12-29 07:57 | W.PN.HOSP.TC ---
Today's Communication/Plan
-
IVF , monitor renal function.
Assessment / Plan
Assessment / Plan
Impression:
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
urinary retention, YASH sen at ER with vomiting and diarrhea that started late last night. Initially, there was significant flatulence followed by diarrhea. The patient also reported passing blood in the stool.
Positive for norovirus
Urine culture positive for Enterococcus.
Assessment/plan:
Acute gastroenteritis secondary Norovirus,
Appreciate GI input.
Continue IV fluid.
Conservative measures.
Patient already improving.
Enterococcus UTI
Pending final idendification.
Start Augmentin
Acute renal failure on CKD3b secondary to dehydration, prerenal azotemia.
- Underlying CKD3b
- Has Right arm AV fistula
- HX TPK on immunosuppressants
- associated syncope due to contracted vol and autonomic insufficiency
- check Tacrolimus level
- cont Tacrolimus/Prednisone/Mycophenolate.
-Nephrology consult
Hypotensive on arrival
Resolved
HX urinary retention
-Patient currently voiding without difficulty
-c/w Flomax 0.8 mg due to current hypotension
- bladder Scan/straight cath
Chronic HFpEF new Dx September 2024
- daily I/O and Wts
- Hold Lasix 20 mg daily
HX ASCVD ( PAD and CVA)
- PAD, Stable.
- Moderate diffuse subcutaneous edema in both lower legs.
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
- Patient was told to be nonweightbearing right leg and left leg weightbearing for transfers only as of early August 2023
-Patient follows with podiatry Dr. Andrade Sheltzer
Neuropathic pain RLE from recent surgery
- on [employer] gabapentin 300 mg twice daily as needed patient takes only 300 mg at bedtime
- on Tylenol
IDDM
- Hold Aspart
- decreed Lantus to [address] of 20 units HS (home dose)
- add ISS low
Anxiety, Stable.
- c/w clonazepam 1 mg twice daily PRN.
CODE STATUS: Full code
DVT prophylaxis:SCDs
Diet:CLD
Disposition: IVF , monitor renal function.
Total time spent on today's encounter was 65 minutes which included time spent in counseling the patient/family regarding diagnosis and treatment plan as listed above, goals of care, and symptom management. Case was discussed with nursing staff,
specialists, and care coordinators/case management. All labs and imaging personally reviewed by me. Remainder the time spent in detailed review of previous records, lab data, imaging, and other medical provider documentation.
Anticipated Discharge: > 48 hours
Subjective/Interval History
-
Date of Service: December 29, 2024
Patient seen and examined at bedside, worsening creatinine but overall feeling better denies any chest pain or shortness of breath, positive for Norovirus.
Objective Data
-
Labs:
Laboratory Results
12/29/24
04:45
WBC 14.2 H
Hgb 13.5
Hct 41.9
Plt Count 199
Sodium 139
Potassium 4.0
Chloride 104
Carbon Dioxide 23
BUN 60 H
Creatinine 2.7 H
Glucose 157 H
Calcium 9.2
Vital Signs:
Vital Signs
Temp Pulse Resp BP Pulse Ox
97.8 F 65 16 127/58 94
12/29/24 03:20 12/29/24 06:30 12/29/24 06:30 12/29/24 06:00 12/29/24 06:30
Physical Exam
-
General: Well Developed, Well Nourished, No Apparent Distress and Comfortable
HEENT: Normocephalic, Atraumatic, Moist Mucous Membranes, No Ptosis, PERRLA and Nose Appears Normal
Respiratory: Clear to Auscultation and Non Labored Respirations
Cardiac: Regular Rhythm and S1/S2
Breast: Deferred by me
GI: Soft, Nontender, Nondistended and Normal Bowel Sounds
Genito-urinary: No Costovertebral Tender
Musculoskeletal: No Clubbing, No Cyanosis and No Edema
Skin: Warm
Neuro: Awake, Alert, Oriented, AO x 3 and No Motor Deficits
Psych: Calm
Data Reviewed
-
Diagnostic Radiology: Image personally visualized and interpreted and Report Reviewed by me
CT Scan: Image personally visualized and interpreted and Report Reviewed by me
Ultrasound: Image personally visualized and interpreted and Report Reviewed by me
MRI: Image personally visualized and interpreted and Report Reviewed by me
Medical Tests (Nuc Med, Echo etc): Image personally visualized and interpreted and Report Reviewed by me
Labs: Labs Reviewed by me
Old Records: Reviewed
[2024-12-29] MEDS: FLOMAX 0.8 MG PO (08:26)
[2024-12-29] MEDS: LIPITOR 40 MG PO (08:26)
[2024-12-29] MEDS: NSS (PRESERVATIVE FREE) 10 ML IV (08:27)
[2024-12-29] MEDS: PROTONIX IV 40 MG IV (08:27)
[2024-12-29 08:47] LABS: Glycohemoglobin (HgbA1c) 7.7 % (4.0-5.6)
--- NOTE | 2024-12-29 08:48 | VNURNOTE ---
Chart reviewed. Patient is current with [facility] nursing. Will continue to follow hospital course and DC plans.
[2024-12-29] MEDS: DELTASONE 5 MG PO (09:01)
[2024-12-29] MEDS: PROGRAF 2 MG PO ×2 (09:02→21:30)
--- NOTE | 2024-12-29 11:23 | W.CON.NEPH ---
Consultation
-
Date/Time Consultation Requested: 12/29/2024 7:30 AM
Date/Time Consultation Performed: 12/29/2024 1130 AM
Requesting Provider: Dr. Peñaloza
Performing Provider: Dr. Vidal
Reason for Consultation: Acute kidney injury/ Kidney Transplant
Medical History
-
Chief Complaint: SHERRY/Renal Transplant
History of Present Illness:
74-year-old male history of ESRD from diabetic nephropathy s/p renal transplant (donor daughter) in 10/2022 at [facility], MMF, prednisone and monthly Belatacept for ACR in biopsy in 04/2023 labile BPs with significant orthostatic hypotension
with autonomic dysfunction related to diabetes, hyperlipidemia, insulin-dependent diabetes, recent R transmet amputation presents to ED
His cr baseline was at 1.3-1.5. The patient presented with acute gastroenteritis associated with adynamic ileus , with associated diarrhea and blood in stool. There was also associated abdominal pain. He is in acute renal failure with his
creatinine at 2.7 and we were consulted.
Past Medical History
1. ESRD due to diabetes. s/p LRTxp 10/2022 at [facility]
2. Diabetes mellitus, type 2 with complications
3. Orthostasis.
4. Right AV fistula.
5. Autonomic insufficiency
6. ADHD.
7. Sleep apnea.
8. Hyperlipidemia.
9. BPH.
10. Elevated PSA.
11. Secondary hyperparathyroidism.
CKD with baseline creatinine of 1.2-1.5
Past Surgical History: Other (Appendectomy Laser treatment of both eyes Right upper extremity speech slow reaction Right upper extremity fistulogram Right upper extremity fistula revision, kidney transplant, TURP)
Social History
Tobacco: Non-Smoker
Alcohol: None
Personal:
Living: With Family
Family History
Family History: Not Pertinent
Allergies / Home Medications
Allergy/AdvReac Type Severity Reaction Status Date / Time
No Known Allergies Allergy Verified 09/25/24 21:15
�Medication �Instructions �Recorded �Confirmed �Type
prednisone 5 mg tablet 5 mg PO DAILY Anti-Inflammatory 07/23/23 12/28/24 History
aspirin 81 mg tablet,delayed 81 mg PO DAILY Blood Clot 08/14/24 12/28/24 History
release Prevention/Tx
atorvastatin 40 mg tablet (Lipitor) 40 mg PO DAILY High Cholesterol 08/14/24 12/28/24 History
magnesium oxide 400 mg PO BID Supplement 08/14/24 12/28/24 History
mycophenolate sodium 180 mg 720 mg PO BID IMMUNOSUPPRESSANT 08/14/24 12/28/24 History
tablet,delayed release
omega-3 acid ethyl esters 1 gram 2 cap PO BID Supplement 08/14/24 12/28/24 History
capsule (Lovaza)
gabapentin 300 mg capsule 300 mg PO HS foot pain 10/04/24 12/28/24 History
tamsulosin 0.4 mg capsule 0.8 mg (2 x 0.4 mg) PO DAILY #60 10/07/24 12/28/24 Rx
caps
clonazepam 1 mg tablet 1 mg PO BIDPRN PRN anxiety 10/15/24 12/28/24 History
midodrine 5 mg tablet 5 mg PO TIDPRN PRN low SBP 10/15/24 12/28/24 History
tacrolimus 1 mg capsule, 2 mg PO Q12H KIDNEY TRANSPLANT 10/15/24 12/28/24 History
immediate-release
insulin glargine 100 unit/mL (3 30 unit (0.3 mL) SC HS diabetes 10/19/24 12/28/24 Rx
mL) subcutaneous pen (Lantus #0 mL
Solostar U-100 Insulin)
clopidogrel 75 mg tablet 75 mg PO DAILY Heart 12/28/24 12/28/24 History
Disease/Condition
hydralazine 10 mg tablet 10 mg PO TID Blood Pressure 12/28/24 12/28/24 History
insulin lispro 100 unit/mL 10 unit SC AC Diabetes 12/28/24 12/28/24 History
subcutaneous pen (Humalog KwikPen
(U-100) Insulin)
metoprolol succinate 25 mg 25 mg PO DAILY Blood Pressure 12/28/24 12/28/24 History
tablet,extended release 24 hr
vibegron 75 mg tablet (Gemtesa) 75 mg PO DAILY OVERACTIVE BLADDER 12/28/24 12/28/24 History
Review of Systems
-
History Source: Patient
All other systems: Negative unless noted
Abdomen/GI: Abdominal Pain, Diarrhea and Bloody Stools
Physical Exam
Vital Signs
Vital Signs
Temp Pulse Resp BP Pulse Ox
97.5 F 66 14 118/68 100
12/29/24 07:35 12/29/24 10:00 12/29/24 10:00 12/29/24 10:00 12/29/24 10:08
Lab Results
12/29/24 04:45
12/29/24 04:45
WBC 14.2 10^3/uL (4.8-10.8) H 12/29/24 04:45
RBC 5.12 10^6/uL (4.70-6.10) 12/29/24 04:45
Hgb 13.5 g/dL (13.0-18.0) 12/29/24 04:45
Hct 41.9 % (39.0-52.0) 12/29/24 04:45
Plt Count 199 10^3/uL (130-400) 12/29/24 04:45
Sodium 139 mmol/L (135-145) 12/29/24 04:45
Potassium 4.0 mmol/L (3.5-5.1) 12/29/24 04:45
Chloride 104 mmol/L (98-107) 12/29/24 04:45
Carbon Dioxide 23 mmol/L (22-30) 12/29/24 04:45
BUN 60 mg/dl (9-20) H 12/29/24 04:45
Creatinine 2.7 mg/dL (0.7-1.3) H 12/29/24 04:45
eGFR 24.28 12/29/24 04:45
Glucose 157 mg/dl (70-99) H 12/29/24 04:45
Calcium 9.2 mg/dl (8.4-10.2) 12/29/24 04:45
Albumin 4.8 g/dl (3.5-5.0) 12/28/24 13:43
Physical Exam
General: AOx3, Nontoxic , NAD
HEENT: PERRL, EOMI, Anicteric, Conjunctivae Clear, Ear/Nose Intact, Hearing Normal, Oropharynx Clear/Moist, Dentition Intact, Facial Symmetry, Neck Supple, Neck: Trachea Midline, No JVD and No Thyromegaly, no Bruits
Respiratory: Clear to auscultation bilaterally with normal lung exersion
Cardiac: S1/S2 and Regular Rate/Rhythm
Breast: Deferred by me
Abdomen: Soft, Nontender, Nondistended, Normal Bowel Sounds and No Hepatosplenomegaly, right lower quadrant kidney graft without bruit or tenderness
Rectal: Deferred by Provider
Genito-urinary: No Costovertebral Tenderness
Extremities: No Clubbing, No Cyanosis and No Edema
Skin: No Rash or open lesions
Neuro: Nonfocal/Grossly Intact, CN II-XII (Intact) and Strength (Musculoskeletal exam 5 out of 5 both upper and lower extremities)
Hematologic/Lymphatic: No Cervical Lymphadenopathy, No Submandibular Lymphadenopathy and No Supraclavicular Lymphadenopathy
Psych: Mood/afflect pleasant, Insight/judgement good and Appropriate
Vascular: plus 1 pedal and radial pulses
Right radial AV fistula with good thrill and bruit
Vascular Access: AVF
Data Reviewed
-
CT Scan: Report Reviewed by me (CAT scan of abdomen and pelvis: Mild perinephric edema small left adrenal adenoma, right lower quadrant renal transplant notable for 2 mm nonobstructing calculus no evidence of hydronephrosis)
Medical Tests (Nuc Med, Echo etc): Other (EKG reviewed normal sinus rhythm with nonspecific T wave abnormality at 68 bpm T wave inversions in inferior leads)
Labs: Labs Reviewed by me (BMP CBC)
Old Records: Reviewed (Previous nephrology consultation from 10/15/2024 reviewed when patient was admitted with Enterococcus urosepsis)
Assessment/Plan
-
Impression:
Acute enteritis with associated severe diffuse distention of small bowel (N/V on presentation)norovirus on stool culture
Acute kidney injury creatinine of 2.7
Right lower quadrant living related kidney transplant October 2022
History of enterococcal bacteremia and UTI
CKD III-baseline cr 1.3-1.5
History of diabetic nephropathy
b/l LE Wounds
ASCVD / PAD
Benign Hypertension
Anxiety
h/o syncope from severe orthostatic hypotension
DM2-with microvascular complications
Anxiety, Insomnia
BPH
1.2 cm left adrenal adenoma
Plan:
SHERRY:
- Likely secondary to strong prerenal stimulus from GI losses due to vomiting and diarrhea/patient was hypotensive on admission: hold hydralazine
- IV fluids to be provided
- Check tacrolimus trough level in setting of acute kidney injury (maintain MMF and tacrolimus at able)
- Need accurate I's and O's with bladder scan protocol placed as patient is already needed to be straight cath
- Zosyn to be renally dosed for GFR less than 30
[2024-12-29 11:44] LABS: Glucose - Point of Care 181 mg/dl (70-99)
[2024-12-29] MEDS: NSS 1000 IV ×2 (12:17→21:19)
--- NOTE | 2024-12-29 12:36 | PTCARENOTE ---
Assumed care of patient at beginning of this shift from previous RN. Jessica Ball in to see patient and ordered clear liquid diet; patient had coffee only but tolerated. Denies nausea. Bladder scan done d/t no void: 549. Dr Peñaloza made aware; ordered
to straight cath patient. Urine output 500ml via straight cath. Stool came back positive for norovirus; Dr Vidal, Dr Peñaloza and Renetta Turcios'Jamel COLLINS made aware. Patient on enhanced precautions. IVF ordered by Dr Vidal: NSS @ 100ml/hr. See worklist
for full assessment, vital signs and interventions.
[2024-12-29] MEDS: VISBIOME 2 CAP PO (16:09)
[2024-12-29 16:26] LABS: Glucose - Point of Care 176 mg/dl (70-99)
--- NOTE | 2024-12-29 17:00 | CM ---
Patient with Dx Acute renal failure. Room air. Receiving IVF, IV Abx. Per nurse; A/O, requires assist of 1 for mobility.
Spoke with patient's Amber;
the patient resides with his in a one story home with 2 steps to enter.
The patient was independent in ADLs and ambulation using his SPC and RW.
states patient had fallen 10x in the past few weeks.
DME - SPC, RW
Current with [facility] for SN & PT.
Prior [facility] - would not return there
PCP - Ben Suarez
Pharmacy - [facility] Bertin Bright
Message to Dr Peñaloza requesting PT/OT Paco.
Plan follow up after seen by PT/OT.
--- NOTE | 2024-12-29 17:49 | PTCARENOTE ---
Addendum entered by Sierra Shukla RN 12/29/24 19:15:
Frausto catheter placed without difficulty; see intervention.
Original Note:
Patient still has not voided. Assisted to commode; large amount loose/liquid stool. BP dropped to 84/64 while sitting on the commode. He was not able to void standing. Bladder scan 330. BP recovered to 117/60 as soon as patient back to bed.
Young notified via TT and instructed to place frausto.
[2024-12-29] MEDS: NEURONTIN 300 MG PO (20:37)
--- NOTE | 2024-12-29 20:40 | PTCARENOTE ---
Received patient from [place] RN. Patient aao x3, able to make needs known. Denies pain. Call feng within reach, patient using call feng appropriately. Davenport cath putting out yellow urine. Discussed enhanced precautions with patient and spouse,
instructed on hand hygiene. Both parties verbalize understanding. Will continue to monitor patient closely.
[2024-12-29 21:16] LABS: Glucose - Point of Care 254 mg/dl (70-99)
[2024-12-29] MEDS: KLONOPIN 1 MG PO (21:19)
[2024-12-29] MEDS: LANTUS 0.1 UNITS SC (21:19)
[2024-12-30] VITALS (35 sets, daily range): BP systolic 112–231; BP diastolic 59–100; PULSE 75; O2SAT 95; BMI 26.0
[2024-12-30] MEDS: ZOSYN 50 IV ×4 (04:06→20:45)
[2024-12-30 04:17] LABS: Hematocrit 37.7 % (39.0-52.0); Hemoglobin 12.2 g/dL (13.0-18.0); Mean Corp Hgb Conc. 32.4 g/dL (33.0-37.0); Mean Corpuscular Hgb 26.7 pg (27.0-31.0); Mean Corpuscular Volume 82.5 fL (80.0-94.0); Mean Platelet Volume 11.7 fL (7.4-10.4); Platelet Count 178 10^3/uL (130-400); Red Blood Cell Count 4.57 10^6/uL (4.70-6.10); White Blood Cell Count 9.8 10^3/uL (4.8-10.8)
[2024-12-30 04:41] LABS: Blood Urea Nitrogen 49 mg/dl (9-20); Calcium 8.8 mg/dl (8.4-10.2); Carbon Dioxide 25 mmol/L (22-30); Chloride 107 mmol/L (98-107); Estimated Creatinine Clearance 33 ml/min; Glucose 193 mg/dl (70-99); Potassium 4.1 mmol/L (3.5-5.1); Sodium 141 mmol/L (135-145); eGFR 31.05
[2024-12-30] MEDS: NSS (PRESERVATIVE FREE) 10 ML IV (07:42)
[2024-12-30] MEDS: PROTONIX IV 40 MG IV (07:42)
[2024-12-30] MEDS: LIPITOR 40 MG PO (07:43)
[2024-12-30] MEDS: FLOMAX 0.8 MG PO (07:43)
[2024-12-30] MEDS: MYFORTIC DELAYED REL. 720 MG PO ×2 (07:43→20:45)
[2024-12-30] MEDS: VISBIOME 2 CAP PO (07:43)
[2024-12-30] MEDS: DELTASONE 5 MG PO (07:43)
[2024-12-30] MEDS: NOVOLOG FLEXPEN-LOW RESISTANCE 1 UNITS SC ×2 (07:44→11:49)
[2024-12-30 07:52] LABS: Glucose - Point of Care 175 mg/dl (70-99)
[2024-12-30] MEDS: NSS 1000 IV ×2 (07:54→17:40)
--- NOTE | 2024-12-30 11:11 | W.PN.NEPH.PH ---
Today's Communication / Plan
-
IVF
Assessment/Plan
-
Impression:
Acute enteritis with associated severe diffuse distention of small bowel (N/V on presentation)norovirus on stool culture
Acute kidney injury creatinine of 2.7
Right lower quadrant living related kidney transplant October 2022
History of enterococcal bacteremia and UTI
CKD III-baseline cr 1.3-1.5
History of diabetic nephropathy
b/l LE Wounds
ASCVD / PAD
Benign Hypertension
Anxiety
h/o syncope from severe orthostatic hypotension
DM2-with microvascular complications
Anxiety, Insomnia
BPH
1.2 cm left adrenal adenoma
Plan:
await FK level
continue IVF
follow BMP
prn midodrine, orthostasis is not new for him
-
-
Date of Service: December 30, 2024
CC / HPI / ROS
-
Chief Complaint:
SHERRY
History of Present Illness:
SHERRY/Cr down to 2.2 (bl 1.3)
orthostasis
LRRTx 10/2022 Catherine
norovirus enteritis
Review of Systems:
no CP/SOB
diarrhea
Labs
-
Labs:
WBC 9.8 10^3/uL (4.8-10.8) 12/30/24 03:59
RBC 4.57 10^6/uL (4.70-6.10) L 12/30/24 03:59
Hgb 12.2 g/dL (13.0-18.0) L 12/30/24 03:59
Hct 37.7 % (39.0-52.0) L 12/30/24 03:59
Plt Count 178 10^3/uL (130-400) 12/30/24 03:59
Sodium 141 mmol/L (135-145) 12/30/24 03:59
Potassium 4.1 mmol/L (3.5-5.1) 12/30/24 03:59
Chloride 107 mmol/L (98-107) 12/30/24 03:59
Carbon Dioxide 25 mmol/L (22-30) 12/30/24 03:59
BUN 49 mg/dl (9-20) H 12/30/24 03:59
Creatinine 2.2 mg/dL (0.7-1.3) H 12/30/24 03:59
eGFR 31.05 12/30/24 03:59
Glucose 193 mg/dl (70-99) H 12/30/24 03:59
Calcium 8.8 mg/dl (8.4-10.2) 12/30/24 03:59
Albumin 4.8 g/dl (3.5-5.0) 12/28/24 13:43
Physical Exam
-
Vital Signs:
Vital Signs
Temp Pulse Resp BP Pulse Ox
97.5 F 63 17 157/74 96
12/30/24 07:05 12/30/24 08:00 12/30/24 08:00 12/30/24 08:00 12/30/24 08:54
Cardiovascular:: Regular rate and rhythm
Respiratory:: Bilateral: CTA
Lung Excursion:: Normal
Abdomen:: Nontender and Soft
Bowel Sounds:: Normal
Extremity Edema:: None: Bilateral:
[2024-12-30] MEDS: PROGRAF 2 MG PO ×2 (11:49→22:08)
[2024-12-30 11:54] LABS: Glucose - Point of Care 193 mg/dl (70-99)
--- NOTE | 2024-12-30 14:09 | W.PN.HOSP.TC ---
Today's Communication/Plan
-
IVF , monitor renal function.
Assessment / Plan
Assessment / Plan
Impression:
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
urinary retention, YASH sen at ER with vomiting and diarrhea that started late last night. Initially, there was significant flatulence followed by diarrhea. The patient also reported passing blood in the stool.
Positive for norovirus
Urine culture positive for Enterococcus Faecalis.
Assessment/plan:
Acute gastroenteritis secondary Norovirus,
Appreciate GI input.
Continue IV fluid.
Conservative measures.
Patient already improving.
Syncope.
Secondary to positive orthostatic hypotension
Continue IV fluid
Multiple falls
Secondary to syncope and low blood pressure.
PT/OT
Enterococcus UTI
Sensitive to ampicillin
Discontinue Zosyn
Start Augmentin
Patient immunocompromised
Acute renal failure on CKD3b history of TPK,
History of renal transplant prerenal azotemia.
immunosuppressants
Appreciate nephrology input
- Tacrolimus level pending
- cont Tacrolimus/Prednisone/Mycophenolate.
Hypotensive on arrival
Resolved
HX urinary retention
-c/w Flomax 0.8 mg due to current hypotension
- bladder Scan/straight cath
Chronic HFpEF new Dx September 2024
- daily I/O and Wts
- Hold Lasix 20 mg daily
HX ASCVD ( PAD and CVA)
- PAD, Stable.
- Moderate diffuse subcutaneous edema in both lower legs.
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
- Patient was told to be nonweightbearing right leg and left leg weightbearing for transfers only as of early August 2023
-Patient follows with podiatry Dr. Andrade Valencia
Neuropathic pain RLE from recent surgery
- on [employer] gabapentin 300 mg twice daily as needed patient takes only 300 mg at bedtime
- on Tylenol
IDDM
- Hold Aspart
- decreed Lantus to [address] of 20 units HS (home dose)
- add ISS low
Anxiety, Stable.
- c/w clonazepam 1 mg twice daily PRN.
CODE STATUS: Full code
DVT prophylaxis:SCDs
Diet:CLD
Disposition: IVF , monitor renal function.
Total time spent on today's encounter was 65 minutes which included time spent in counseling the patient/family regarding diagnosis and treatment plan as listed above, goals of care, and symptom management. Case was discussed with nursing staff,
specialists, and care coordinators/case management. All labs and imaging personally reviewed by me. Remainder the time spent in detailed review of previous records, lab data, imaging, and other medical provider documentation.
Anticipated Discharge: 24 - 48 hours
Subjective/Interval History
-
Date of Service: December 30, 2024
Patient seen and examined at bedside, still with diarrhea, denies any chest pain or shortness of breath.
Objective Data
-
Labs:
Laboratory Results
12/30/24
03:59
WBC 9.8
Hgb 12.2 L
Hct 37.7 L
Plt Count 178
Sodium 141
Potassium 4.1
Chloride 107
Carbon Dioxide 25
BUN 49 H
Creatinine 2.2 H
Glucose 193 H
Calcium 8.8
Vital Signs:
Vital Signs
Temp Pulse Resp BP Pulse Ox
97.5 F 64 15 176/72 96
12/30/24 07:05 12/30/24 12:46 12/30/24 12:46 12/30/24 12:46 12/30/24 12:46
I&O
12/29/24 12/30/24 12/31/24
06:59 06:59 06:59
Intake Total 720 / 720
Output Total 1350 / 1350 850 / 850
Balance -630 / -630 -850 / -850
Physical Exam
-
General: Well Developed, Well Nourished, No Apparent Distress and Comfortable
HEENT: Normocephalic, Atraumatic, Moist Mucous Membranes, No Ptosis, PERRLA and Nose Appears Normal
Respiratory: Clear to Auscultation and Non Labored Respirations
Cardiac: Regular Rhythm and S1/S2
Breast: Deferred by me
GI: Soft, Nontender, Nondistended and Normal Bowel Sounds
Genito-urinary: No Costovertebral Tender
Musculoskeletal: No Clubbing, No Cyanosis and No Edema
Skin: Warm
Neuro: Awake, Alert, Oriented, AO x 3 and No Motor Deficits
Psych: Calm
Data Reviewed
-
Diagnostic Radiology: Image personally visualized and interpreted and Report Reviewed by me
CT Scan: Image personally visualized and interpreted and Report Reviewed by me
Ultrasound: Image personally visualized and interpreted and Report Reviewed by me
MRI: Image personally visualized and interpreted and Report Reviewed by me
Medical Tests (Nuc Med, Echo etc): Image personally visualized and interpreted and Report Reviewed by me
Labs: Labs Reviewed by me
Old Records: Reviewed
--- NOTE | 2024-12-30 16:34 | CM ---
Patient with Dx Acute renal failure. Room air. Receiving IVF, IV Abx. Clear liquids. PT Eval; home PT v no needs. OT Eval; HH.
Spoke with patient; he agrees to resuming [facility] at d/c for nurse however does not think he will need PT, despite his Hx of falls at home.
Case discussed with [facility] Liaison.
Plan home with resumption of [facility].
[2024-12-30] MEDS: NOVOLOG FLEXPEN-LOW RESISTANCE 3 UNITS SC (17:38)
[2024-12-30 17:48] LABS: Glucose - Point of Care 296 mg/dl (70-99)
--- NOTE | 2024-12-30 20:14 | PTCARENOTE ---
Addendum entered by Margie Hendricks RN 12/31/24 02:23:
RN send tt to ANDREA Godoy to update with patients continued manual and automatic sbp >200. GRAPHICS EDIT TECHNICIAN to unit to assess patients bp. This RN and GRAPHICS EDIT TECHNICIAN reviewed patients sbp both manual and automatic on left upper arm, left le, and left calf.
Order placed for Apresoline 5mg IV stat. This rn administered as ordered. Patients bp improved overall, however, remains elevated. Will continue to monitor and update GRAPHICS EDIT TECHNICIAN.
Addendum entered by Margie Hendricks RN 12/30/24 23:10:
ANDREA Godoy to floor to assess patient and bp around 2100. Reports manual SBP decreased. No new orders. Reviewed medications patient has received and overall status.
BP cuff changed a short while ago, confirmed fitting appropriately. SBP remains elevated 190's-200's. Patient continues to deny symptoms; headache, vision changes, lightheaded, etc. GRAPHICS EDIT TECHNICIAN notified will continue to monitor patient closely.
Addendum entered by Margie Hendricks RN 12/30/24 20:35:
Spoke with Qamar MENDEZ, requesting orthostatics. laying sit: 149/86, stand: 132/67, return to layin/96. Patient remains asymptomatic however bp laying remains SBP >200. Message sent to ANDREA with updated orthostatics.
Original Note:
Patients bp cuff reading 200's/100's. Patient asleep at the time. Patient awakened to assess, denies headache, denies vision changes. Manual bp 200/94, hr sustained 70's. Message sent to ANDREA Godoy, awaiting instructions.
[2024-12-30] MEDS: NEURONTIN 300 MG PO (20:45)
--- NOTE | 2024-12-30 21:34 | W.PN.UPDATE ---
Update Note
Progress Note Update
Patient manual 130/80
will continuee holding bp meds and c/w othostatic vital signs
[2024-12-30] MEDS: KLONOPIN 1 MG PO (22:04)
[2024-12-30] MEDS: LANTUS 0.1 UNITS SC (22:04)
[2024-12-30 22:08] LABS: Glucose - Point of Care 287 mg/dl (70-99)
[2024-12-31] VITALS (45 sets, daily range): BP systolic 113–221; BP diastolic 54–123; PULSE 60–63; BMI 26.5
[2024-12-31] MEDS: APRESOLINE 5 MG IV (00:15)
[2024-12-31] MEDS: NSS 1000 IV ×2 (04:03→16:33)
[2024-12-31] MEDS: ZOSYN 50 IV (04:04)
[2024-12-31 04:41] LABS: Hematocrit 37.9 % (39.0-52.0); Hemoglobin 12.4 g/dL (13.0-18.0); Mean Corp Hgb Conc. 32.7 g/dL (33.0-37.0); Mean Corpuscular Volume 82.6 fL (80.0-94.0); Mean Platelet Volume 11.3 fL (7.4-10.4); Platelet Count 169 10^3/uL (130-400); Red Blood Cell Count 4.59 10^6/uL (4.70-6.10); Red Cell Dist. Width 14.7 % (11.5-14.5); White Blood Cell Count 9.1 10^3/uL (4.8-10.8)
[2024-12-31 05:00] LABS: Blood Urea Nitrogen 25 mg/dl (9-20); Carbon Dioxide 25 mmol/L (22-30); Chloride 112 mmol/L (98-107); Estimated Creatinine Clearance 46 ml/min; Glucose 234 mg/dl (70-99); Potassium 4.2 mmol/L (3.5-5.1); Sodium 144 mmol/L (135-145)
[2024-12-31 07:43] LABS: Glucose - Point of Care 171 mg/dl (70-99)
[2024-12-31] MEDS: NOVOLOG FLEXPEN-LOW RESISTANCE 1 UNITS SC (07:48)
[2024-12-31] MEDS: PROTONIX IV 40 MG IV (07:48)
[2024-12-31] MEDS: NSS (PRESERVATIVE FREE) 10 ML IV (07:49)
[2024-12-31] MEDS: LIPITOR 40 MG PO (07:49)
[2024-12-31] MEDS: VISBIOME 2 CAP PO (07:49)
[2024-12-31] MEDS: DELTASONE 5 MG PO (07:49)
[2024-12-31] MEDS: MYFORTIC DELAYED REL. 720 MG PO ×2 (07:50→21:52)
[2024-12-31] MEDS: FLOMAX 0.8 MG PO (07:50)
[2024-12-31] MEDS: AUGMENTIN 500 MG/125 MG 1 TABLET PO ×2 (09:23→21:53)
[2024-12-31] MEDS: PROGRAF 2 MG PO ×2 (10:03→23:14)
--- NOTE | 2024-12-31 11:13 | W.PN.NEPH.PH ---
Today's Communication / Plan
-
IVF
Assessment/Plan
-
Impression:
Acute enteritis with associated severe diffuse distention of small bowel (N/V on presentation)norovirus on stool culture
Acute kidney injury creatinine of 2.7
Right lower quadrant living related kidney transplant October 2022
History of enterococcal bacteremia and UTI
CKD III-baseline cr 1.3-1.5
History of diabetic nephropathy
b/l LE Wounds
ASCVD / PAD
Benign Hypertension
Anxiety
h/o syncope from severe orthostatic hypotension
DM2-with microvascular complications
Anxiety, Insomnia
BPH
1.2 cm left adrenal adenoma
Plan:
await 12/31 FK level (12/30 level was 6hr level)
continue IVF
follow BMP
prn midodrine, orthostasis is not new for him
PT/OT
-
-
Date of Service: December 31, 2024
CC / HPI / ROS
-
Chief Complaint:
SHERRY
History of Present Illness:
SHERRY/Cr down to 1.6 (bl 1.3)
orthostasis still
LRRTx 10/2022 Mandaeism
norovirus enteritis
Review of Systems:
no CP/SOB
diarrhea still
eating well
Labs
-
Labs:
WBC 9.1 10^3/uL (4.8-10.8) 12/31/24 04:26
RBC 4.59 10^6/uL (4.70-6.10) L 12/31/24 04:26
Hgb 12.4 g/dL (13.0-18.0) L 12/31/24 04:26
Hct 37.9 % (39.0-52.0) L 12/31/24 04:26
Plt Count 169 10^3/uL (130-400) 12/31/24 04:26
Sodium 144 mmol/L (135-145) 12/31/24 04:26
Potassium 4.2 mmol/L (3.5-5.1) 12/31/24 04:26
Chloride 112 mmol/L (98-107) H 12/31/24 04:26
Carbon Dioxide 25 mmol/L (22-30) 12/31/24 04:26
BUN 25 mg/dl (9-20) H 12/31/24 04:26
Creatinine 1.6 mg/dL (0.7-1.3) H 12/31/24 04:26
eGFR 45.50 12/31/24 04:26
Glucose 234 mg/dl (70-99) H 12/31/24 04:26
Calcium 9.0 mg/dl (8.4-10.2) 12/31/24 04:26
Albumin 4.8 g/dl (3.5-5.0) 12/28/24 13:43
Physical Exam
-
Vital Signs:
Vital Signs
Temp Pulse Resp BP Pulse Ox
97.5 F 61 19 169/91 94
12/31/24 07:08 12/31/24 10:00 12/31/24 10:00 12/31/24 09:30 12/31/24 11:00
Cardiovascular:: Regular rate and rhythm
Respiratory:: Bilateral: Coarse
Lung Excursion:: Normal
Abdomen:: Nontender and Soft
Bowel Sounds:: Normal
Extremity Edema:: None: Bilateral:
[2024-12-31 12:24] LABS: Glucose - Point of Care 208 mg/dl (70-99)
[2024-12-31] MEDS: NOVOLOG FLEXPEN-LOW RESISTANCE 2 UNITS SC ×2 (12:44→18:08)
--- NOTE | 2024-12-31 13:58 | CM ---
Patient seen at bedside in IMU, Patient stated that he is frustrated at frequent hospitalizations and just wants to get better. Patient to follow with [facility] when medically appropriate. CM will continue to follow for discharge planning needs.
Plan;home with [facility]
--- NOTE | 2024-12-31 14:55 | W.PN.HOSP.TC ---
Today's Communication/Plan
-
Continue IV fluid.
Follow BMP.
Start Augmentin
Assessment / Plan
Assessment / Plan
Impression:
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
urinary retention, YASH sen at ER with vomiting and diarrhea that started late last night. Initially, there was significant flatulence followed by diarrhea. The patient also reported passing blood in the stool.
Positive for norovirus
Urine culture positive for Enterococcus Faecalis.
Zosyn switched to Augmentin
Assessment/plan:
Acute gastroenteritis secondary Norovirus,
Appreciate GI input.
Continue IV fluid.
Conservative measures.
Patient already improving.
Syncope.
Secondary to positive orthostatic hypotension
Continue IV fluid
Multiple falls
Secondary to syncope and low blood pressure.
PT/OT recommending rehab
Enterococcus UTI
Sensitive to ampicillin
Discontinue Zosyn
Started Augmentin
Patient immunocompromised
Acute renal failure on CKD3b history of TPK,
History of renal transplant prerenal azotemia.
immunosuppressants
Appreciate nephrology input
- Tacrolimus level pending
- cont Tacrolimus/Prednisone/Mycophenolate.
Hypotensive on arrival
Resolved
HX urinary retention
-c/w Flomax 0.8 mg due to current hypotension
- bladder Scan/straight cath
Chronic HFpEF new Dx September 2024
- daily I/O and Wts
- Hold Lasix 20 mg daily
HX ASCVD ( PAD and CVA)
- PAD, Stable.
- Moderate diffuse subcutaneous edema in both lower legs.
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
- Patient was told to be nonweightbearing right leg and left leg weightbearing for transfers only as of early August 2023
-Patient follows with podiatry Dr. Andrade Valencia
Neuropathic pain RLE from recent surgery
- on CIRCUS RIDER gabapentin 300 mg twice daily as needed patient takes only 300 mg at bedtime
- on Tylenol
IDDM
- Hold Aspart
- decreed Lantus to [address] of 20 units HS (home dose)
- add ISS low
Anxiety, Stable.
- c/w clonazepam 1 mg twice daily PRN.
CODE STATUS: Full code
DVT prophylaxis:SCDs
Diet:CLD
Disposition: IVF , monitor renal function.
Total time spent on today's encounter was 65 minutes which included time spent in counseling the patient/family regarding diagnosis and treatment plan as listed above, goals of care, and symptom management. Case was discussed with nursing staff,
specialists, and care coordinators/case management. All labs and imaging personally reviewed by me. Remainder the time spent in detailed review of previous records, lab data, imaging, and other medical provider documentation.
Anticipated Discharge: 24 - 48 hours
Subjective/Interval History
-
Date of Service: December 31, 2024
Patient seen and examined at bedside, denies any chest pain or shortness of breath, no abdominal pain, no nausea, no vomiting, still with diarrhea, but overall improved.
Objective Data
-
Labs:
Laboratory Results
12/31/24
04:26
WBC 9.1
Hgb 12.4 L
Hct 37.9 L
Plt Count 169
Sodium 144
Potassium 4.2
Chloride 112 H
Carbon Dioxide 25
BUN 25 H
Creatinine 1.6 H
Glucose 234 H
Calcium 9.0
Vital Signs:
Vital Signs
Temp Pulse Resp BP Pulse Ox
97.6 F 62 18 148/92 94
12/31/24 11:33 12/31/24 12:00 12/31/24 12:00 12/31/24 11:41 12/31/24 11:00
I&O
12/30/24 12/31/24 01/01/25
06:59 06:59 06:59
Intake Total 720 / 720 1540 / 1540
Output Total 1350 / 1350 3625 / 3625 800 / 800
Balance -630 / -630 -2085 / -2085 -800 / -800
Physical Exam
-
General: Well Developed, Well Nourished, No Apparent Distress and Comfortable
HEENT: Normocephalic, Atraumatic, Moist Mucous Membranes, No Ptosis, PERRLA and Nose Appears Normal
Respiratory: Clear to Auscultation and Non Labored Respirations
Cardiac: Regular Rhythm and S1/S2
Breast: Deferred by me
GI: Soft, Nontender, Nondistended and Normal Bowel Sounds
Genito-urinary: No Costovertebral Tender
Musculoskeletal: No Clubbing, No Cyanosis and No Edema
Skin: Warm
Neuro: Awake, Alert, Oriented, AO x 3 and No Motor Deficits
Psych: Calm
Data Reviewed
-
Diagnostic Radiology: Image personally visualized and interpreted and Report Reviewed by me
CT Scan: Image personally visualized and interpreted and Report Reviewed by me
Ultrasound: Image personally visualized and interpreted and Report Reviewed by me
MRI: Image personally visualized and interpreted and Report Reviewed by me
Medical Tests (Nuc Med, Echo etc): Image personally visualized and interpreted and Report Reviewed by me
Labs: Labs Reviewed by me
Old Records: Reviewed
[2024-12-31] MEDS: APRESOLINE 10 MG PO ×2 (16:33→23:16)
--- NOTE | 2024-12-31 16:49 | PTCARENOTE ---
Pt blood pressure running high - 200/80. Pt is asymptomatic. Hospitalist made aware and giving hydralazine.
[2024-12-31 17:02] LABS: Glucose - Point of Care 214 mg/dl (70-99)
[2024-12-31] MEDS: APRESOLINE 10 MG IV (18:07)
[2024-12-31] MEDS: NOVOLOG FLEXPEN 5 UNITS SC (18:08)
[2024-12-31] MEDS: NEURONTIN 300 MG PO (21:51)
[2024-12-31 22:02] LABS: Glucose - Point of Care 232 mg/dl (70-99)
[2024-12-31] MEDS: LANTUS 0.15 UNITS SC (22:06)
[2024-12-31] MEDS: KLONOPIN 1 MG PO (23:17)
--- NOTE | 2024-12-31 23:29 | PTCARENOTE ---
Cannot verify vital signs prior to 1900. Pt BP 150/65, MARY Hydralazine given. Pt AAOx3, pleasant. Pt ambulated with standby assistance to the bathroom. Pt states he is having some dizziness but resolved when sitting down. Hygiene and oral care done.
NSR on the monitor. Remains on RA. Davenport draining clear yellow urine. Pt requesting PRN Klonopin see MAR. Call feng within reach.
[2025-01-01] VITALS (14 sets, daily range): BP systolic 108–210; BP diastolic 56–92; PULSE 61–78; O2SAT 97; BMI 27.1; BMI 27.4
[2025-01-01] MEDS: NSS 1000 IV ×2 (01:23→12:57)
--- NOTE | 2025-01-01 05:34 | PTCARENOTE ---
Davenport catheter removed per order. DTV by 1134.
[2025-01-01 05:48] LABS: Hemoglobin 12.2 g/dL (13.0-18.0); Mean Corpuscular Hgb 27.2 pg (27.0-31.0); Mean Corpuscular Volume 82.4 fL (80.0-94.0); Mean Platelet Volume 10.7 fL (7.4-10.4); Platelet Count 172 10^3/uL (130-400); Red Blood Cell Count 4.49 10^6/uL (4.70-6.10); Red Cell Dist. Width 15.1 % (11.5-14.5); White Blood Cell Count 9.4 10^3/uL (4.8-10.8)
[2025-01-01] MEDS: APRESOLINE 10 MG IV ×2 (06:08→23:54)
[2025-01-01 06:16] LABS: Blood Urea Nitrogen 22 mg/dl (9-20); Calcium 8.9 mg/dl (8.4-10.2); Carbon Dioxide 22 mmol/L (22-30); Chloride 114 mmol/L (98-107); Estimated Creatinine Clearance 49 ml/min; Glucose 233 mg/dl (70-99); Potassium 4.2 mmol/L (3.5-5.1); Sodium 146 mmol/L (135-145); eGFR 49.16
--- NOTE | 2025-01-01 06:37 | PTCARENOTE ---
Patient BP 200/80's. Pt asymptomatic. PRN Hydralazine given per order see SEP.
--- NOTE | 2025-01-01 07:45 | W.PN.NEPH.PH ---
Today's Communication / Plan
-
Encourage p.o. intake for
awaiting tacrolimus level
Assessment/Plan
-
Impression:
Acute enteritis with associated severe diffuse distention of small bowel (N/V on presentation)norovirus on stool culture
Acute kidney injury creatinine of 2.7
Right lower quadrant living related kidney transplant October 2022
History of enterococcal bacteremia and UTI
CKD III-baseline cr 1.3-1.5
History of diabetic nephropathy
b/l LE Wounds
ASCVD / PAD
Benign Hypertension
Anxiety
h/o syncope from severe orthostatic hypotension
DM2-with microvascular complications
Anxiety, Insomnia
BPH
1.2 cm left adrenal adenoma
Plan:
await 12/31 FK level (12/30 level was 6hr level)
free water deficit serum sodium level up to 146, encourage p.o. fluid intake
follow BMP
prn midodrine, orthostasis is not new for him, blood pressure remains wildly labile, remains on outpatient antihypertensive
Creatinine stable at baseline 1.5
PT/OT
-
-
Date of Service: January 01, 2025
CC / HPI / ROS
-
Chief Complaint:
SHERRY
History of Present Illness:
SHERRY/Cr down to 1.5 (bl 1.3)
orthostasis still
LRRTx 10/2022 Jain
norovirus enteritis
serum sodium up to 146
Review of Systems:
no CP/SOB
diarrhea still but less per patient
eating well
non oliguric 3liters
Labs
-
Labs:
WBC 9.4 10^3/uL (4.8-10.8) 01/01/25 05:23
RBC 4.49 10^6/uL (4.70-6.10) L 01/01/25 05:23
Hgb 12.2 g/dL (13.0-18.0) L 01/01/25 05:23
Hct 37.0 % (39.0-52.0) L 01/01/25 05:23
Plt Count 172 10^3/uL (130-400) 01/01/25 05:23
Sodium 146 mmol/L (135-145) H 01/01/25 05:23
Potassium 4.2 mmol/L (3.5-5.1) 01/01/25 05:23
Chloride 114 mmol/L (98-107) H 01/01/25 05:23
Carbon Dioxide 22 mmol/L (22-30) 01/01/25 05:23
BUN 22 mg/dl (9-20) H 01/01/25 05:23
Creatinine 1.5 mg/dL (0.7-1.3) H 01/01/25 05:23
eGFR 49.16 01/01/25 05:23
Glucose 233 mg/dl (70-99) H 01/01/25 05:23
Calcium 8.9 mg/dl (8.4-10.2) 01/01/25 05:23
Albumin 4.8 g/dl (3.5-5.0) 12/28/24 13:43
Physical Exam
-
Vital Signs:
Vital Signs
Temp Pulse Resp BP Pulse Ox
98.0 F 66 14 128/58 92
01/01/25 03:00 01/01/25 06:33 01/01/25 06:33 01/01/25 06:33 01/01/25 05:00
Cardiovascular:: Regular rate and rhythm
Respiratory:: Bilateral: Coarse
Lung Excursion:: Normal
Abdomen:: Nontender and Soft
Bowel Sounds:: Normal
Extremity Edema:: None: Bilateral:
Davenport Catheter: Yes
[2025-01-01 07:49] LABS: Glucose - Point of Care 237 mg/dl (70-99)
[2025-01-01] MEDS: NOVOLOG FLEXPEN-LOW RESISTANCE 2 UNITS SC ×2 (08:35→12:57)
[2025-01-01] MEDS: VISBIOME 2 CAP PO (08:36)
[2025-01-01] MEDS: NOVOLOG FLEXPEN 5 UNITS SC ×2 (08:36→12:56)
[2025-01-01] MEDS: MYFORTIC DELAYED REL. 720 MG PO ×2 (08:37→21:33)
[2025-01-01] MEDS: ASPIR LOW (ENTERIC COATED) 81 MG PO (08:37)
[2025-01-01] MEDS: LIPITOR 40 MG PO (08:38)
[2025-01-01] MEDS: AUGMENTIN 500 MG/125 MG 1 TABLET PO ×2 (08:38→21:34)
[2025-01-01] MEDS: FLOMAX 0.8 MG PO (08:38)
[2025-01-01] MEDS: PROTONIX 40 MG PO (08:38)
[2025-01-01] MEDS: APRESOLINE 10 MG PO ×3 (08:38→21:34)
[2025-01-01] MEDS: PLAVIX 75 MG PO (08:39)
[2025-01-01] MEDS: TOPROL XL 25 MG PO (08:39)
[2025-01-01] MEDS: DELTASONE 5 MG PO (08:39)
[2025-01-01] MEDS: PROGRAF 2 MG PO ×2 (08:54→21:36)
[2025-01-01 12:56] LABS: Glucose - Point of Care 202 mg/dl (70-99)
--- NOTE | 2025-01-01 13:01 | W.PN.HOSP.TC ---
Today's Communication/Plan
-
Dc IVF , medically cleared for DC.
Assessment / Plan
Assessment / Plan
Impression:
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
urinary retention, YASH sen at ER with vomiting and diarrhea that started late last night. Initially, there was significant flatulence followed by diarrhea. The patient also reported passing blood in the stool.
Positive for norovirus
Urine culture positive for Enterococcus Faecalis.
Zosyn switched to Augmentin
Overall improving, pending placement.
Assessment/plan:
Acute gastroenteritis secondary Norovirus,
Appreciate GI input.
Continue IV fluid.
Conservative measures.
Patient already improving.
Syncope.
Secondary to positive orthostatic hypotension
improved
DC IVF
Multiple falls
Secondary to syncope and low blood pressure.
PT/OT recommending rehab
Overall improving, pending placement
Enterococcus UTI
Sensitive to ampicillin
Discontinue Zosyn
Started Augmentin
Patient immunocompromised
Acute renal failure on CKD3b history of TPK,
History of renal transplant prerenal azotemia.
immunosuppressants
Appreciate nephrology input
- Tacrolimus level pending
- cont Tacrolimus/Prednisone/Mycophenolate.
Hypotensive on arrival
Resolved
HX urinary retention
-c/w Flomax 0.8 mg due to current hypotension
- bladder Scan/straight cath
Chronic HFpEF new Dx September 2024
- daily I/O and Wts
- Dc IVF
HX ASCVD ( PAD and CVA)
- PAD, Stable.
- Moderate diffuse subcutaneous edema in both lower legs.
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
- Patient was told to be nonweightbearing right leg and left leg weightbearing for transfers only as of early August 2023
-Patient follows with podiatry Dr. Andrade Valencia
Neuropathic pain RLE from recent surgery
- on CLOSING SPECIALIST gabapentin 300 mg twice daily as needed patient takes only 300 mg at bedtime
- on Tylenol
IDDM
- resume home insulin
Anxiety, Stable.
- c/w clonazepam 1 mg twice daily PRN.
CODE STATUS: Full code
DVT prophylaxis:SCDs
Diet:CLD
Disposition: Dc IVF , medically cleared for DC.
Total time spent on today's encounter was 65 minutes which included time spent in counseling the patient/family regarding diagnosis and treatment plan as listed above, goals of care, and symptom management. Case was discussed with nursing staff,
specialists, and care coordinators/case management. All labs and imaging personally reviewed by me. Remainder the time spent in detailed review of previous records, lab data, imaging, and other medical provider documentation.
Anticipated Discharge: Within 24 hours
Subjective/Interval History
-
Date of Service: January 01, 2025
Patient seen and examined at bedside, denies any chest pain or shortness of breath, no abdominal pain, no nausea, no vomiting, diarrhea slightly improved.
Objective Data
-
Labs:
Laboratory Results
01/01/25
05:23
WBC 9.4
Hgb 12.2 L
Hct 37.0 L
Plt Count 172
Sodium 146 H
Potassium 4.2
Chloride 114 H
Carbon Dioxide 22
BUN 22 H
Creatinine 1.5 H
Glucose 233 H
Calcium 8.9
Vital Signs:
Vital Signs
Temp Pulse Resp BP Pulse Ox
98.3 F 71 16 158/75 98
01/01/25 12:15 01/01/25 12:15 01/01/25 12:15 01/01/25 12:15 01/01/25 12:15
I&O
12/31/24 01/01/25 01/02/25
06:59 06:59 06:59
Intake Total 1540 / 1540 1580 / 1580
Output Total 3625 / 3625 3100 / 3100
Balance -2085 / -2085 -1520 / -1520
Physical Exam
-
General: Well Developed, Well Nourished, No Apparent Distress and Comfortable
HEENT: Normocephalic, Atraumatic, Moist Mucous Membranes, No Ptosis, PERRLA and Nose Appears Normal
Respiratory: Clear to Auscultation and Non Labored Respirations
Cardiac: Regular Rhythm and S1/S2
Breast: Deferred by me
GI: Soft, Nontender, Nondistended and Normal Bowel Sounds
Genito-urinary: No Costovertebral Tender
Musculoskeletal: No Clubbing, No Cyanosis and No Edema
Skin: Warm
Neuro: Awake, Alert, Oriented, AO x 3 and No Motor Deficits
Psych: Calm
Data Reviewed
-
Diagnostic Radiology: Image personally visualized and interpreted and Report Reviewed by me
CT Scan: Image personally visualized and interpreted and Report Reviewed by me
Ultrasound: Image personally visualized and interpreted and Report Reviewed by me
MRI: Image personally visualized and interpreted and Report Reviewed by me
Medical Tests (Nuc Med, Echo etc): Image personally visualized and interpreted and Report Reviewed by me
Labs: Labs Reviewed by me
Old Records: Reviewed
[2025-01-01 17:18] LABS: Glucose - Point of Care 146 mg/dl (70-99)
[2025-01-01] MEDS: NOVOLOG FLEXPEN SC (17:21)
[2025-01-01] MEDS: NOVOLOG FLEXPEN-LOW RESISTANCE SC (17:34)
[2025-01-01 21:31] LABS: Glucose - Point of Care 225 mg/dl (70-99)
[2025-01-01] MEDS: LANTUS 0.3 UNITS SC (21:34)
[2025-01-01] MEDS: NEURONTIN 300 MG PO (21:34)
[2025-01-01] MEDS: KLONOPIN 1 MG PO (21:42)
[2025-01-01] MEDS: FLUSH (NSS) 1 FLUSH IV (23:55)
[2025-01-02 03:07] VITALS: BP 173/79
[2025-01-02 06:00] VITALS: BMI 26.9
[2025-01-02] MEDS: APRESOLINE 10 MG IV (06:01)
--- NOTE | 2025-01-02 06:06 | PTCARENOTE ---
BPs elevated throughout shift - receiving scheduled PO hydralazine and PRN IV hydralazine Q6, see MAR. Despite medications, BP still elevated early this am. Notified ANDREA Devi -- give IV PRN dose now and follow. Patient states he is comfortable,
no c/o pain, states 'This is why I am here, doesn't seem like we can figure this out.' Call feng in reach, will monitor.
[2025-01-02 06:51] LABS: Blood Urea Nitrogen 20 mg/dl (9-20); Calcium 9.1 mg/dl (8.4-10.2); Carbon Dioxide 23 mmol/L (22-30); Chloride 113 mmol/L (98-107); Estimated Creatinine Clearance 52 ml/min; Glucose 192 mg/dl (70-99); Potassium 4.2 mmol/L (3.5-5.1); Sodium 143 mmol/L (135-145)
[2025-01-02 07:35] VITALS: BP 104/50
[2025-01-02 07:57] LABS: Glucose - Point of Care 192 mg/dl (70-99)
[2025-01-02] MEDS: VISBIOME 2 CAP PO (10:10)
[2025-01-02] MEDS: MYFORTIC DELAYED REL. 720 MG PO ×2 (10:10→20:42)
[2025-01-02] MEDS: APRESOLINE 10 MG PO ×3 (10:10→20:41)
[2025-01-02] MEDS: AUGMENTIN 500 MG/125 MG 1 TABLET PO ×2 (10:10→20:41)
[2025-01-02] MEDS: LIPITOR 40 MG PO (10:10)
[2025-01-02] MEDS: FLOMAX 0.8 MG PO (10:11)
[2025-01-02] MEDS: ASPIR LOW (ENTERIC COATED) 81 MG PO (10:11)
[2025-01-02] MEDS: PLAVIX 75 MG PO (10:11)
[2025-01-02] MEDS: TOPROL XL 25 MG PO (10:11)
[2025-01-02] MEDS: PROTONIX 40 MG PO (10:12)
[2025-01-02] MEDS: NOVOLOG FLEXPEN-LOW RESISTANCE SC ×2 (10:12→17:15)
[2025-01-02] MEDS: DELTASONE 5 MG PO (10:12)
[2025-01-02] MEDS: NOVOLOG FLEXPEN 10 UNITS SC ×3 (10:13→17:16)
[2025-01-02] MEDS: PROGRAF 2 MG PO (10:17)
[2025-01-02 11:28] VITALS: BP 155/63
[2025-01-02 11:46] LABS: Glucose - Point of Care 190 mg/dl (70-99)
--- NOTE | 2025-01-02 12:03 | W.PN.HOSP.TC ---
Today's Communication/Plan
-
Possible discharge Saturday home with home physical therapy
Assessment / Plan
Assessment / Plan
Impression:
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
urinary retention, YASH sen at ER with vomiting and diarrhea that started late last night. Initially, there was significant flatulence followed by diarrhea. The patient also reported passing blood in the stool.
Positive for norovirus
Urine culture positive for Enterococcus Faecalis.
Zosyn switched to Augmentin
Overall improving, pending placement.
Assessment/plan:
Acute gastroenteritis secondary Norovirus,
Appreciate GI input.
Continue IV fluid.
Conservative measures.
Patient already improving.
Diarrhea improving
Syncope.
Secondary to positive orthostatic hypotension
improved
Patient with chronic orthostasis
Multiple falls
Secondary to syncope and low blood pressure.
PT/OT recommending home physical therapy.
Overall feeling weak will ask PT to reeval.
Enterococcus UTI
Sensitive to ampicillin
Discontinue Zosyn
Started Augmentin
Patient immunocompromised
Acute renal failure on CKD3b history of TPK,
History of renal transplant prerenal azotemia.
immunosuppressants
Appreciate nephrology input
- Tacrolimus level pending
- cont Tacrolimus/Prednisone/Mycophenolate.
Hypotensive on arrival
Resolved
HX urinary retention
-c/w Flomax 0.8 mg due to current hypotension
- bladder Scan/straight cath
Chronic HFpEF new Dx September 2024
- daily I/O and Wts
- Dc IVF
HX ASCVD ( PAD and CVA)
- PAD, Stable.
- Moderate diffuse subcutaneous edema in both lower legs.
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
- Patient was told to be nonweightbearing right leg and left leg weightbearing for transfers only as of early August 2023
-Patient follows with podiatry Dr. Andrade Valencia
Neuropathic pain RLE from recent surgery
- on SENIOR ECONOMIST gabapentin 300 mg twice daily as needed patient takes only 300 mg at bedtime
- on Tylenol
IDDM
- resume home insulin
Anxiety, Stable.
- c/w clonazepam 1 mg twice daily PRN.
CODE STATUS: Full code
DVT prophylaxis:SCDs
Diet:CLD
Disposition: medically cleared for DC.
Total time spent on today's encounter was 65 minutes which included time spent in counseling the patient/family regarding diagnosis and treatment plan as listed above, goals of care, and symptom management. Case was discussed with nursing staff,
specialists, and care coordinators/case management. All labs and imaging personally reviewed by me. Remainder the time spent in detailed review of previous records, lab data, imaging, and other medical provider documentation.
Anticipated Discharge: Within 24 hours
Subjective/Interval History
-
Date of Service: January 02, 2025
Patient seen and examined at bedside, feeling tired, still with diarrhea till today morning, blood pressure was severely elevated last night at 208/92
Pressure improved in the morning. Denies any chest pain or shortness of breath.
Objective Data
-
Labs:
Laboratory Results
01/02/25
06:00
Sodium 143
Potassium 4.2
Chloride 113 H
Carbon Dioxide 23
BUN 20
Creatinine 1.4 H
Glucose 192 H
Calcium 9.1
Vital Signs:
Vital Signs
Temp Pulse Resp BP Pulse Ox
97.8 F 66 18 155/63 97
01/02/25 11:28 01/02/25 11:28 01/02/25 11:28 01/02/25 11:28 01/02/25 11:28
I&O
01/01/25 01/02/25 01/03/25
06:59 06:59 06:59
Intake Total 1580 / 1580 580 / 580
Output Total 3100 / 3100
Balance -1520 / -1520 580 / 580
Physical Exam
-
General: Well Developed, Well Nourished, No Apparent Distress and Comfortable
HEENT: Normocephalic, Atraumatic, Moist Mucous Membranes, No Ptosis, PERRLA and Nose Appears Normal
Respiratory: Clear to Auscultation and Non Labored Respirations
Cardiac: Regular Rhythm and S1/S2
Breast: Deferred by me
GI: Soft, Nontender, Nondistended and Normal Bowel Sounds
Genito-urinary: No Costovertebral Tender
Musculoskeletal: No Clubbing, No Cyanosis and No Edema
Skin: Warm
Neuro: Awake, Alert, Oriented, AO x 3 and No Motor Deficits
Psych: Calm
Data Reviewed
-
Diagnostic Radiology: Image personally visualized and interpreted and Report Reviewed by me
CT Scan: Image personally visualized and interpreted and Report Reviewed by me
Ultrasound: Image personally visualized and interpreted and Report Reviewed by me
MRI: Image personally visualized and interpreted and Report Reviewed by me
Medical Tests (Nuc Med, Echo etc): Image personally visualized and interpreted and Report Reviewed by me
Labs: Labs Reviewed by me
Old Records: Reviewed
--- NOTE | 2025-01-02 12:28 | W.PN.NEPH.PH ---
Today's Communication / Plan
-
Tacrolimus dose adjusted to 2 mg in the a.m. and 1 mg in the p.m.
Assessment/Plan
-
Impression:
Acute enteritis with associated severe diffuse distention of small bowel (N/V on presentation)norovirus on stool culture
Acute kidney injury creatinine of 2.7
Right lower quadrant living related kidney transplant October 2022
History of enterococcal bacteremia and UTI
CKD III-baseline cr 1.3-1.5
History of diabetic nephropathy
b/l LE Wounds
ASCVD / PAD
Benign Hypertension
Anxiety
h/o syncope from severe orthostatic hypotension
DM2-with microvascular complications
Anxiety, Insomnia
BPH
1.2 cm left adrenal adenoma
Plan:
12/31 FK level (12/30 level was 6hr level) was 12
Decrease tacrolimus to 2 mg in the morning and 1 mg in the evening
prn midodrine, orthostasis is not new for him, blood pressure remains wildly labile, remains on outpatient antihypertensive
Creatinine stable at baseline 1.4
Blood pressure is chronically violently labile due to autonomic dysfunction
PT/OT
-
-
Date of Service: January 02, 2025
CC / HPI / ROS
-
Chief Complaint:
SHERRY
History of Present Illness:
SHERRY/Cr down to 1.4 (bl 1.3)
Blood pressure is wildly labile with changes in position
LRRTx 10/2022 Taoist on mycophenolate tacrolimus and prednisone
norovirus enteritis
serum sodium up to 146
Review of Systems:
no CP/SOB
diarrhea still but less per patient
eating well
Labs
-
Labs:
WBC 9.4 10^3/uL (4.8-10.8) 01/01/25 05:23
RBC 4.49 10^6/uL (4.70-6.10) L 01/01/25 05:23
Hgb 12.2 g/dL (13.0-18.0) L 01/01/25 05:23
Hct 37.0 % (39.0-52.0) L 01/01/25 05:23
Plt Count 172 10^3/uL (130-400) 01/01/25 05:23
Sodium 143 mmol/L (135-145) 01/02/25 06:00
Potassium 4.2 mmol/L (3.5-5.1) 01/02/25 06:00
Chloride 113 mmol/L (98-107) H 01/02/25 06:00
Carbon Dioxide 23 mmol/L (22-30) 01/02/25 06:00
BUN 20 mg/dl (9-20) 01/02/25 06:00
Creatinine 1.4 mg/dL (0.7-1.3) H 01/02/25 06:00
eGFR 53.40 01/02/25 06:00
Glucose 192 mg/dl (70-99) H 01/02/25 06:00
Calcium 9.1 mg/dl (8.4-10.2) 01/02/25 06:00
Albumin 4.8 g/dl (3.5-5.0) 12/28/24 13:43
Physical Exam
-
Vital Signs:
Vital Signs
Temp Pulse Resp BP Pulse Ox
97.8 F 66 18 155/63 97
01/02/25 11:28 01/02/25 11:28 01/02/25 11:28 01/02/25 11:28 01/02/25 11:28
Cardiovascular:: Regular rate and rhythm
Respiratory:: Bilateral: Coarse
Lung Excursion:: Normal
Abdomen:: Nontender and Soft
Bowel Sounds:: Normal
Extremity Edema:: None: Bilateral:
[place] Catheter: Yes
[2025-01-02] MEDS: NOVOLOG FLEXPEN-LOW RESISTANCE 2 UNITS SC (14:24)
[2025-01-02 15:47] VITALS: BP 150/68
[2025-01-02 17:06] LABS: Glucose - Point of Care 90 mg/dl (70-99)
[2025-01-02] MEDS: PROGRAF 1 MG PO (17:15)
[2025-01-02 19:20] VITALS: BP 179/71
[2025-01-02] MEDS: NEURONTIN 300 MG PO (20:41)
[2025-01-02 22:08] LABS: Glucose - Point of Care 212 mg/dl (70-99)
[2025-01-02] MEDS: LANTUS 0.3 UNITS SC (22:12)
[2025-01-02] MEDS: KLONOPIN 1 MG PO (22:16)
[2025-01-02 22:17] VITALS: BP 142/80
[2025-01-03 03:05] VITALS: BP 200/79
[2025-01-03 03:45] VITALS: BP 204/84
[2025-01-03] MEDS: APRESOLINE 10 MG IV (03:56)
--- NOTE | 2025-01-03 04:03 | PTCARENOTE ---
Blood pressures labile throughout shift, most recent automatic 200/79, rechecked manually at 204/84. HR has been in the 60s. Patient is asleep, appears to be comfortable, no complaints at this time. Patient is receiving hydralazine scheduled TID,
PRN hydralazine 10mg IV Q6hour. Notified ANDREA Patel to see if any additional medications should be considered other than the PRN hydralazine. At this time, requested to give PRN hydralazine to start. See SEP. Will monitor.
[2025-01-03 05:42] LABS: Hematocrit 37.7 % (39.0-52.0); Hemoglobin 12.4 g/dL (13.0-18.0); Mean Corp Hgb Conc. 32.9 g/dL (33.0-37.0); Mean Corpuscular Hgb 27.1 pg (27.0-31.0); Mean Corpuscular Volume 82.5 fL (80.0-94.0); Mean Platelet Volume 11.2 fL (7.4-10.4); Platelet Count 158 10^3/uL (130-400); Red Blood Cell Count 4.57 10^6/uL (4.70-6.10); Red Cell Dist. Width 15.1 % (11.5-14.5); White Blood Cell Count 9.4 10^3/uL (4.8-10.8)
[2025-01-03 06:00] VITALS: BMI 26.9
[2025-01-03 06:06] LABS: Blood Urea Nitrogen 25 mg/dl (9-20); Calcium 9.4 mg/dl (8.4-10.2); Carbon Dioxide 22 mmol/L (22-30); Chloride 109 mmol/L (98-107); Estimated Creatinine Clearance 49 ml/min; Glucose 240 mg/dl (70-99); Potassium 4.6 mmol/L (3.5-5.1); Sodium 141 mmol/L (135-145); eGFR 49.16
[2025-01-03 07:49] VITALS: BP 152/75
[2025-01-03 08:23] VITALS: BP 137/58; BP 148/68; BP 152/75; PULSE 63; PULSE 69; PULSE 79
[2025-01-03 08:28] LABS: Glucose - Point of Care 175 mg/dl (70-99)
[2025-01-03] MEDS: VISBIOME 2 CAP PO (08:29)
[2025-01-03] MEDS: FLOMAX 0.8 MG PO (08:29)
[2025-01-03] MEDS: MYFORTIC DELAYED REL. 720 MG PO (08:29)
[2025-01-03] MEDS: DELTASONE 5 MG PO (08:29)
[2025-01-03] MEDS: PROGRAF 2 MG PO (08:29)
[2025-01-03] MEDS: LIPITOR 40 MG PO (08:30)
[2025-01-03] MEDS: NOVOLOG FLEXPEN 10 UNITS SC ×2 (08:30→12:09)
[2025-01-03] MEDS: AUGMENTIN 500 MG/125 MG 1 TABLET PO (08:30)
[2025-01-03] MEDS: PLAVIX 75 MG PO (08:30)
[2025-01-03] MEDS: PROTONIX 40 MG PO (08:30)
[2025-01-03] MEDS: APRESOLINE 10 MG PO (08:30)
[2025-01-03] MEDS: ASPIR LOW (ENTERIC COATED) 81 MG PO (08:30)
[2025-01-03] MEDS: NOVOLOG FLEXPEN-LOW RESISTANCE 1 UNITS SC ×2 (08:30→12:09)
[2025-01-03] MEDS: TOPROL XL 25 MG PO (08:30)
--- NOTE | 2025-01-03 10:36 | W.PN.HOSP.TC ---
Today's Communication/Plan
-
Discharge home with home PT today
Assessment / Plan
Assessment / Plan
Impression:
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
urinary retention, YASH sen at ER with vomiting and diarrhea that started late last night. Initially, there was significant flatulence followed by diarrhea. The patient also reported passing blood in the stool.
Positive for norovirus
Urine culture positive for Enterococcus Faecalis.
Zosyn switched to Augmentin
Overall improving, physical therapy recommending home physical therapy.
Blood pressure with very variant with positive orthostatic, will be discharged on both hydralazine as needed for hyper pressure and midodrine to be used for low blood pressure.
Assessment/plan:
Acute gastroenteritis secondary Norovirus,
Appreciate GI input.
Continue IV fluid.
Conservative measures.
Patient already improving.
Diarrhea improving
Syncope.
Secondary to positive orthostatic hypotension
improved
Patient with chronic orthostasis
Multiple falls
Secondary to syncope and low blood pressure.
PT/OT recommending home physical therapy.
Overall feeling weak will ask PT to reeval.
Enterococcus UTI
Sensitive to ampicillin
Discontinue Zosyn
Started Augmentin
Patient immunocompromised
Acute renal failure on CKD3b history of TPK,
History of renal transplant prerenal azotemia.
immunosuppressants
Appreciate nephrology input
- Tacrolimus level pending
- cont Tacrolimus/Prednisone/Mycophenolate.
Variable blood pressure /hypotensive on arrival
Hypotension improved.
Patient will be discharged on as needed regimen hydralazine/midodrine.
HX urinary retention
-c/w Flomax 0.8 mg due to current hypotension
- bladder Scan/straight cath
Chronic HFpEF new Dx September 2024
- daily I/O and Wts
- Dc IVF
HX ASCVD ( PAD and CVA)
- PAD, Stable.
- Moderate diffuse subcutaneous edema in both lower legs.
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
- Patient was told to be nonweightbearing right leg and left leg weightbearing for transfers only as of early August 2023
-Patient follows with podiatry Dr. Andrade Valencia
Neuropathic pain RLE from recent surgery
- on CARPENTER INSPECTOR gabapentin 300 mg twice daily as needed patient takes only 300 mg at bedtime
- on Tylenol
IDDM
- resume home insulin
Anxiety, Stable.
- c/w clonazepam 1 mg twice daily PRN.
CODE STATUS: Full code
DVT prophylaxis:SCDs
Diet:CLD
Disposition: medically cleared for DC.
Total time spent on today's encounter was 65 minutes which included time spent in counseling the patient/family regarding diagnosis and treatment plan as listed above, goals of care, and symptom management. Case was discussed with nursing staff,
specialists, and care coordinators/case management. All labs and imaging personally reviewed by me. Remainder the time spent in detailed review of previous records, lab data, imaging, and other medical provider documentation.
Anticipated Discharge: Today
Subjective/Interval History
-
Date of Service: January 03, 2025
Patient seen and examined at bedside, denies any chest pain or shortness of breath, no abdominal pain, no nausea, no vomiting, no diarrhea or constipation.
Objective Data
-
Labs:
Laboratory Results
01/03/25
05:23
WBC 9.4
Hgb 12.4 L
Hct 37.7 L
Plt Count 158
Sodium 141
Potassium 4.6
Chloride 109 H
Carbon Dioxide 22
BUN 25 H
Creatinine 1.5 H
Glucose 240 H
Calcium 9.4
Vital Signs:
Vital Signs
Temp Pulse Resp BP Pulse Ox
97.9 F 63 18 152/75 97
01/03/25 07:49 01/03/25 07:49 01/03/25 07:49 01/03/25 07:49 01/03/25 07:49
I&O
01/02/25 01/03/25 01/04/25
06:59 06:59 06:59
Intake Total 580 / 580 240 / 240
Balance 580 / 580 240 / 240
Physical Exam
-
General: Well Developed, Well Nourished, No Apparent Distress and Comfortable
HEENT: Normocephalic, Atraumatic, Moist Mucous Membranes, No Ptosis, PERRLA and Nose Appears Normal
Respiratory: Clear to Auscultation and Non Labored Respirations
Cardiac: Regular Rhythm and S1/S2
Breast: Deferred by me
GI: Soft, Nontender, Nondistended and Normal Bowel Sounds
Genito-urinary: No Costovertebral Tender
Musculoskeletal: No Clubbing, No Cyanosis and No Edema
Skin: Warm
Neuro: Awake, Alert, Oriented, AO x 3 and No Motor Deficits
Psych: Calm
Data Reviewed
-
Diagnostic Radiology: Image personally visualized and interpreted and Report Reviewed by me
CT Scan: Image personally visualized and interpreted and Report Reviewed by me
Ultrasound: Image personally visualized and interpreted and Report Reviewed by me
MRI: Image personally visualized and interpreted and Report Reviewed by me
Medical Tests (Nuc Med, Echo etc): Image personally visualized and interpreted and Report Reviewed by me
Labs: Labs Reviewed by me
Old Records: Reviewed
[2025-01-03 10:51] VITALS: BP 142/77
--- NOTE | 2025-01-03 11:17 | W.DCSUMMARY ---
Discharge Summary
Discharge Data
Date of Admission: 12/28/24
Date of Discharge: 01/03/25
-
Pending Results: No
Hospital Course
Hospital course
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
urinary retention, YASH sen at ER with vomiting and diarrhea that started late last night. Initially, there was significant flatulence followed by diarrhea. The patient also reported passing blood in the stool.
Positive for norovirus
Urine culture positive for Enterococcus Faecalis.
Zosyn switched to Augmentin
Overall improving, physical therapy recommending home physical therapy.
Blood pressure with very variant with positive orthostatic, will be discharged on both hydralazine as needed for hyper pressure and midodrine to be used for low blood pressure.
During hospitalization patient was treated from the following
Acute gastroenteritis secondary Norovirus,
Appreciate GI input.
Continue IV fluid.
Conservative measures.
Patient already improving.
Diarrhea improving
Syncope.
Secondary to positive orthostatic hypotension
improved
Patient with chronic orthostasis
Multiple falls
Secondary to syncope and low blood pressure.
PT/OT recommending home physical therapy.
Overall feeling weak will ask PT to reeval.
Enterococcus UTI
Sensitive to ampicillin
Discontinue Zosyn
Started Augmentin
Patient immunocompromised
Acute renal failure on CKD3b history of TPK,
History of renal transplant prerenal azotemia.
immunosuppressants
Appreciate nephrology input
- Tacrolimus level pending
- cont Tacrolimus/Prednisone/Mycophenolate.
Variable blood pressure /hypotensive on arrival
Hypotension improved.
Patient will be discharged on as needed regimen hydralazine/midodrine.
HX urinary retention
-c/w Flomax 0.8 mg due to current hypotension
- bladder Scan/straight cath
Chronic HFpEF new Dx September 2024
- daily I/O and Wts
- Dc IVF
HX ASCVD ( PAD and CVA)
- PAD, Stable.
- Moderate diffuse subcutaneous edema in both lower legs.
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
- Patient was told to be nonweightbearing right leg and left leg weightbearing for transfers only as of early August 2023
-Patient follows with podiatry Dr. Andrade Valencia
Neuropathic pain RLE from recent surgery
- on [employer]ESPERSON FLYING SQUAD gabapentin 300 mg twice daily as needed patient takes only 300 mg at bedtime
- on Tylenol
IDDM
- resume home insulin
Anxiety, Stable.
- c/w clonazepam 1 mg twice daily PRN.
CODE STATUS: Full code
DVT prophylaxis:SCDs
Diet:CLD
Disposition: medically cleared for DC.
Total time spent on today's encounter was 40 minutes which included time spent in counseling the patient/family regarding diagnosis and treatment plan as listed above, goals of care, and symptom management. Case was discussed with nursing staff,
specialists, and care coordinators/case management. All labs and imaging personally reviewed by me. Remainder the time spent in detailed review of previous records, lab data, imaging, and other medical provider documentation.
Anticipated Discharge: Today
Discharge Plan
-
Patient Disposition: Home with Home Care
Discharge Diagnosis/Procedures: Acute gastroenteritis secondary Norovirus,
Acute renal failure on CKD3b history of TPK,
History of renal transplant prerenal azotemia.
Enterococcus UTI.
Diet: Diabetic, Carb Controlled
Activity: With assistance and As tolerated
Other Services: PT and OT
Referrals:
Silvano Foss MD [Active, Gastroenterology]
Referral Note: return to GI office to discuss repeat EGD with hx gastric ulcer
Ben Suarez DO [Family Provider, Internal Medicine]
Humberto Vidal DO [Active, Nephrology] - in two to three weeks
Additional Discharge Medication Instructions: Tacrolimus dose adjusted to 2 mg in the a.m. and 1 mg in the p.m. added hydralazine 10 mg as needed
Prescriptions:
New
tacrolimus 1 mg Capsule
1 mg PO QPM Qty: 0 0RF
tacrolimus 1 mg Capsule
2 mg PO DAILY Qty: 0 0RF
Lactobac/Bifidobac [Visbiome]
2 cap PO DAILY Qty: 0 0RF
hydralazine 10 mg tablet
10 mg PO Q6HPRN PRN (Reason: hypertension > 180) Qty: 30 0RF
Continued
prednisone 5 mg Tablet
5 mg PO DAILY
mycophenolate sodium 180 mg tablet,delayed release (DR/EC)
720 mg PO BID
atorvastatin [Lipitor] 40 mg Tablet
40 mg PO DAILY
aspirin 81 mg Tablet,Delayed Release (Dr/Ec)
81 mg PO DAILY
omega-3 acid ethyl esters [Lovaza] 1 gram Capsule
2 cap PO BID
magnesium oxide 400 mg magnesium Tablet
400 mg PO BID
Patient Comments:
12/28 SAMPLE COLOR MAKER: PER PATIENT, HE TAKES IT BID, RX FOR DAILY
gabapentin 300 mg Capsule
300 mg PO HS
tamsulosin 0.4 mg Capsule
0.8 mg PO DAILY Qty: 60 0RF
clonazepam 1 mg tablet
1 mg PO BIDPRN PRN (Reason: anxiety)
insulin glargine [Lantus Solostar U-100 Insulin] 100 unit/mL (3 mL) Insulin Pen
30 unit SC HS Qty: 0 0RF
clopidogrel 75 mg tablet
75 mg PO DAILY
insulin lispro [Humalog KwikPen Insulin] 100 UNIT/ML insulin pen
10 unit SC AC
hydralazine 10 mg Tablet
10 mg PO TID
Patient Comments:
12/28 SAMPLE COLOR MAKER: Per patient, conflicting dose from PCP vs. specialist (25 mg TID vs. 10 mg TID) - however, patient is taking 10 mg TID
metoprolol succinate 25 mg tablet extended release 24 hr
25 mg PO DAILY
Gemtesa 75 mg tablet
75 mg PO DAILY
midodrine 5 mg Tablet
5 mg PO TIDPRN PRN (Reason: low SBP <110) Qty: 0 0RF
Patient Comments:
12/28 SAMPLE COLOR MAKER - Patient unsure if he's taking medication; per medication dispense history, patient last had it filled 12/24
Discontinued
tacrolimus 1 mg Capsule
2 mg PO Q12H
Discharge Orders:
Discharge Patient (As Directed); Ordered 01/03/25
Ordered By: Arnulfo Peñaloza
Discharge Date and Time
Print Language: SAMI
[2025-01-03 11:28] VITALS: BP 152/79
[2025-01-03 11:59] LABS: Glucose - Point of Care 152 mg/dl (70-99)
--- NOTE | 2025-01-03 12:35 | CM ---
MD entered order for discharge .
Spoke with patient he said he was ready for discharge today.
IMM reviewed with him. He agrees with dc.
He requested [facility] referral accepted for [facility]
Amber will drive him home.
PLAN Home with [facility]
== END 2025-01-03 14:34 | disposition home health service (06) | DRG 392 ==
LOC: 3 WEST ACU 22:04
PROVIDERS: Nurse Practitioner Adult Health; Physician Assistant; Specialist; ADMITTING PHYSICIAN Internal Medicine; ATTENDING PHYSICIAN General Practice; CONSULT PHYSICIAN Internal Medicine Gastroenterology; CONSULT PHYSICIAN Specialist; EMERGENCY PHYSICIAN Emergency Medicine; FAMILY PHYSICIAN Internal Medicine
DX: A08.11 Acute gastroenteropathy due to Norwalk agent (principal); N17.9 Acute kidney failure, unspecified; T86.19 Other complication of kidney transplant; I13.0 Hypertensive heart and chronic kidney disease with heart failure and stage 1 through stage 4 chronic kidney disease, or unspecified chronic kidney disease; I50.32 Chronic diastolic (congestive) heart failure; Z94.0 Kidney transplant status; N39.0 Urinary tract infection, site not specified; D84.821 Immunodeficiency due to drugs; N18.32 Chronic kidney disease, stage 3b; E11.22 Type 2 diabetes mellitus with diabetic chronic kidney disease; B95.2 Enterococcus as the cause of diseases classified elsewhere; Z79.60 Long term (current) use of unspecified immunomodulators and immunosuppressants; I25.10 Atherosclerotic heart disease of native coronary artery without angina pectoris; G47.33 Obstructive sleep apnea (adult) (pediatric); I95.1 Orthostatic hypotension; Z86.73 Personal history of transient ischemic attack (TIA), and cerebral infarction without residual deficits; Z79.4 Long term (current) use of insulin; F41.9 Anxiety disorder, unspecified; F32.A Depression, unspecified; E11.40 Type 2 diabetes mellitus with diabetic neuropathy, unspecified; G47.419 Narcolepsy without cataplexy; Z87.891 Personal history of nicotine dependence; Z79.82 Long term (current) use of aspirin; Z79.02 Long term (current) use of antithrombotics/antiplatelets; Z79.899 Other long term (current) drug therapy; Z86.0100 Personal history of colon polyps, unspecified; N40.0 Benign prostatic hyperplasia without lower urinary tract symptoms; G47.00 Insomnia, unspecified; D35.02 Benign neoplasm of left adrenal gland; E78.00 Pure hypercholesterolemia, unspecified; E86.0 Dehydration; E86.1 Hypovolemia; F90.9 Attention-deficit hyperactivity disorder, unspecified type; H35.30 Unspecified macular degeneration; N32.81 Overactive bladder; R29.6 Repeated falls; Y83.0 Surgical operation with transplant of whole organ as the cause of abnormal reaction of the patient, or of later complication, without mention of misadventure at the time of the procedure
CPT/HCPCS: 70450; 74176; 80048; 80053; 80197; 81003; 81015; 82962; 83036; 83605; 85025; 85027; 87040; 87045; 87046; 87077; 87086; 87186; 87324; 87328; 87329; 87427; 87449; 87798; 93005; 96361; 97116; 97163; 97167; 97530; 97535; 99285

== ENCOUNTER → 2025-02-09 14:32 | Outpatient (REF) | payer MEDICARE, OTHER, SELFPAY | LOC: RAD 14:32 | PROVIDERS: ATTENDING PHYSICIAN Physician Assistant; FAMILY PHYSICIAN Internal Medicine | DX: I73.9 Peripheral vascular disease, unspecified (principal) | CPT/HCPCS: 93922; 93925 ==

== ENCOUNTER → 2025-02-12 07:06 | Outpatient (REF) | payer MEDICARE, OTHER, SELFPAY ==
[2025-02-12 08:18] LABS: Hematocrit 35.7 % (39.0-52.0); Hemoglobin 10.8 g/dL (13.0-18.0); Mean Corp Hgb Conc. 30.3 g/dL (33.0-37.0); Mean Corpuscular Volume 84.8 fL (80.0-94.0); Nucleated Red Blood Cells % 0 % (-); Platelet Count 293 10^3/uL (130-400); Red Cell Dist. Width 15.6 % (11.5-14.5)
[2025-02-12 08:46] LABS: Albumin 3.9 g/dl (3.5-5.0); Blood Urea Nitrogen 52 mg/dl (9-20); Calcium 9.3 mg/dl (8.4-10.2); Carbon Dioxide 23 mmol/L (22-30); Chloride 107 mmol/L (98-107); Glucose 168 mg/dl (70-99); Magnesium 2.1 mg/dl (1.6-2.3); Potassium 5.7 mmol/L (3.5-5.1); Sodium 138 mmol/L (135-145); eGFR 42.30
[2025-02-12 08:59] LABS: Vitamin D, 25-OH*** 32.7 ng/mL (30-80)
[2025-02-14 03:10] LABS: BK Qnt NAAT IU/mL, Plasma Not Detected; BK Qnt NAAT Interp, Plasma Not Detected (Not Detected); BK Qnt NAAT log IU/mL, Plasma Not Detected log IU/mL
[2025-02-14 03:55] LABS: Tacrolimus (Prograft - FK506) 6.9 ng/mL
== END ==
LOC: REG 07:06
PROVIDERS: ATTENDING PHYSICIAN Internal Medicine; FAMILY PHYSICIAN Internal Medicine
DX: I10 Essential (primary) hypertension (principal); E87.5 Hyperkalemia; E83.39 Other disorders of phosphorus metabolism; Z94.0 Kidney transplant status; D50.0 Iron deficiency anemia secondary to blood loss (chronic); R78.81 Bacteremia; N18.4 Chronic kidney disease, stage 4 (severe)
CPT/HCPCS: 36415; 80069; 80197; 82306; 82570; 83735; 84156; 85025; 87799

== ENCOUNTER 2025-02-25 08:29 | Inpatient (IN) | payer MEDICARE, OTHER, SELFPAY ==
[2025-02-23 12:18] VITALS: BP 120/101
[2025-02-23 12:38] LABS: Hematocrit 31.9 % (39.0-52.0); Hemoglobin 10.2 g/dL (13.0-18.0); Mean Corp Hgb Conc. 32.0 g/dL (33.0-37.0); Mean Corpuscular Volume 82.6 fL (80.0-94.0); Nucleated Red Blood Cells % 0 % (-); Platelet Count 256 10^3/uL (130-400); Red Cell Dist. Width 15.1 % (11.5-14.5)
[2025-02-23 12:44] VITALS: BP 158/69
[2025-02-23 13:00] VITALS: BP 152/53
[2025-02-23 13:09] LABS: ALT (SGPT) 16 U/L (0-50); AST (SGOT) 13 U/L (17-59); Albumin 3.7 g/dl (3.5-5.0); Alkaline Phosphatase 86 U/L (38-126); Blood Urea Nitrogen 51 mg/dl (9-20); Calcium 8.9 mg/dl (8.4-10.2); Carbon Dioxide 21 mmol/L (22-30); Chloride 105 mmol/L (98-107); Glucose 116 mg/dl (70-99); Potassium 5.1 mmol/L (3.5-5.1); Sodium 134 mmol/L (135-145); Total Protein 6.5 g/dl (6.3-8.2); eGFR 37.02
--- NOTE | 2025-02-23 13:11 | ED.GENMED ---
History of Present Illness
General
Chief Complaint: Fainting/Passed Out
Source: patient, records and family
Exam Limitations: none
Time Seen by Provider: 02/23/25 13:09
History of Present Illness
History of Present Illness:
74yoM with a history of renal transplant on mycophenolate/tacrolimus/prednisone, insulin-dependent diabetes, hypertension, hyperlipidemia, orthostatic hypotension presenting with his son for evaluation after multiple syncopal episodes. Symptoms
have been present for about a week. He reports fatigue, generalized weakness, and difficulty ambulating. He states he will walk until he passes out. He is experiencing lightheadedness particularly with standing and ambulation. He does have a
history of orthostatic hypotension and takes midodrine. He reports passing out 'half a dozen times' in the last few days. Son states this happens to him every month or so and patient needs to come to the hospital for a 'tune up.' Patient denies
any vomiting, diarrhea, chest pain, shortness of breath, difficulty urinating, fevers.
Past History
Past History
ED Past Medical History: CVA, HTN, Hypercholesterolemia, IDDM, Renal failure (Dialysis and saturday, Right arm fistula), Psychiatric ( anxiety, depression) and Other (Diabetic neuropathy, meningitis,UTI, macular degeneration, diabetic
nephropathy, Narcolepsy, )
ED Past Surgical History: Appendectomy and Other (Right AV fistula. Renal transplant October 2022)
Social History
Tobacco: Former smoker
Alcohol: None
Drug: None
Personal:
Living: with family
Employment: Employed
Family History
Family History: Diabetes
Phy Exam
General Physical Exam
General Presentation: no apparent distress
General Skin: warm and dry
General Habitus: normal and elderly
General Mental: alert
ENT Exam
ENT Exam: normocephalic
Eye Exam
Eye Exam: PERRL
Cardiovascular Exam
Cardiovascular Exam: regular rate/rhythm and no edema
Pulmonary Exam
Pulmonary Exam: lungs clear, no respiratory distress, no rales, no crackles, no rhonchi and no wheezing
Gastrointestinal Exam
Gastrointestinal Exam: non tender, soft and non distended
Neurological Exam
Neurological Exam: alert
[place] Coma Scale
Eye Opening: Spontaneous
Verbal Response: Oriented
Motor Response: Obeys Commands
GCS Total Score: 15
Musculoskeletal Exam
Musculoskeletal Exam: other (+Thoracic spine tenderness. No step-offs or skin changes.)
Skin Exam
Skin Exam: normal color and warm/dry
Psychiatric Exam
Psychiatric Exam: normal mood/affect
Course
Orders/Labs/Results
Orders:
Orders
02/23/25 12:21
Electrocardiogram (*1) Urgent
Reason for Study: Syncope
EKG- Treatment ONCE
02/23/25 12:33
Complete Blood Count/With Diff Urgent
Comprehensive Metabolic Panel Urgent
02/23/25 13:22
CT Cervical Spine W/o Iv Contr Urgent
Comment:
Reason For Exam: neck pain, fall
CT Thoracic Spine W/o Iv Contr Urgent
Comment:
Reason For Exam: mid back pain, falls
Cardiac Monitoring- Treatment ONCE
Urinalysis Reflex To Culture Urgent
0.9% Sodium Chloride 500 ml [Nss] 500 ml IV BOLUS
02/23/25 13:23
CT Head W/o Iv Contrast Urgent
Comment:
Reason For Exam: frequent falls
02/23/25 13:48
Troponin I Urgent
02/23/25 15:53
Orthostatic Vital Signs As Directed
Orthostatic VS Frequency: Now
02/23/25 16:23
Admit/Transfer Patient As Directed
Co-Sign Provider:
Level of Care: Observation services
Assign to:: Telemetry
Physician / Group: Cheryl Callejas
Diagnosis: syncope, generalized weakness, SHERRY
Reason for Telemetry: Syncope
Date to Stop Telemetry: 02/25/25
Time to Stop Telemetry: 11:00
02/23/25 16:24
PRN Pain Medication Management As Directed
May give lesser potent ordered pain med per pt: Yes
preference::
Protocol:: Medication orders for pain may be administered in a
manner that supports deferring to patient preference
when the pt is:
- Requesting an ordered lesser potent pain medication.
Least to most potent pain medications are defined
as: acetaminophen < NSAID < tramadol < opioids
(morphine, oxycodone, hydromorphone).
- Requesting a lesser dose of the same medication IF
ORDERED.
- Requesting a less intrusive route of administration
if both routes are prescribed by the provider (PO <
IV).
02/23/25 16:26
Code Status As Directed
Resuscitation Status: Full Code
02/25/25 11:00
DC Protocol for Telemetry ONCE
Abnormal Lab Results
02/23/25
12:33
WBC 17.8 H 10^3/uL
(4.8-10.8)
RBC 3.86 L 10^6/uL
(4.70-6.10)
Hgb 10.2 L g/dL
(13.0-18.0)
Hct 31.9 L %
(39.0-52.0)
MCH 26.4 L pg
(27.0-31.0)
MCHC 32.0 L g/dL
(33.0-37.0)
RDW 15.1 H %
(11.5-14.5)
Abs Immat Gran (auto) 0.1 H 10^3/uL
(0-0.05)
Absolute Neuts (auto) 15.4 H 10^3/uL
(1.4-6.5)
Absolute Monos (auto) 1.0 H 10^3/uL
(0.1-0.6)
Immature Gran % 0.7 H %
(0-0.5)
Neutrophils % 86.3 H %
(42.2-75.2)
Lymphocytes % 6.6 L %
(20.5-51.1)
Sodium 134 L mmol/L
(135-145)
Carbon Dioxide 21 L mmol/L
(22-30)
BUN 51 H mg/dl
(9-20)
Creatinine 1.9 H mg/dL
(0.7-1.3)
Glucose 116 H mg/dl
(70-99)
AST 13 L U/L
(17-59)
02/23/25 12:33
02/23/25 12:33
Vital Signs
Initial and Last Documented VS:
Initial Vital Signs
Temp Pulse Resp BP Pulse Ox
98.2 F 74 18 120/101 98
02/23/25 12:18 02/23/25 12:18 02/23/25 12:18 02/23/25 12:18 02/23/25 12:18
Last Documented Vital Signs
Temp Pulse Resp BP Pulse Ox
98.2 F 65 12 157/60 95
02/23/25 12:18 02/23/25 14:30 02/23/25 14:30 02/23/25 14:00 02/23/25 14:00
MDM/Problems Addressed
Differential Diagnosis Includes:
74yoM here with multiple syncopal episodes over the past few days. Hx of renal transplant and orthostatic hypotension on midodrine. VSS. He is chronically ill appearing in no distress. Thoracic spine tenderness on exam. Differentia diagnosis
includes but is not limited to: orthostatic hypotension, dehydration, vasovagal syncope, cardiogenic syncope
Initial ED plan: No evidence of heart block or ischemic changes on triage EKG. Will check cardiac labs, and CT head/cervical spine/thoracic spine given multiple falls on Eliquis. IV NS bolus ordered.
*Pulse Oximetry
SaO2: 98
Oxygen Mode of Delivery: Room air
Patient hypoxic: no (99%)
*EKG
Interpreted by ED Provider?: Yes
EKG Intrepretation Date: 02/23/25
Heart Rate: 69
Rate: normal
Rhythm: sinus
[place]: normal axis
Interval: normal interval
QRS Pattern: left vent hypertrophy
Ischemia: no ischemia
*Critical Care Note
Total Time (30-74mins, 75-104mins- exclusive of procedures): Not Applicable
Update Note
Update Note:
Creatinine 1.9, up from 1.5 at time of discharge from [facility] admission. Troponin WNL. No injuries noted on imaging. Will admit for further management.
ED Attending Note
-
Portions of this chart may have been created with voice recognition software.� Occasional wrong word or��sound alike� substitutions may have occurred due to the inherent limitations of voice recognition software.
Discharge Plan
Departure
Patient Disposition: Admit
Date of Disposition: 02/23/25
Time of Disposition: 14:44
Presentation/result/management discussed w/ accepting MD/DO: Hospitalist
Discharge Problem:
Recurrent syncope, Generalized weakness
Interventions
Interventions:
*Risk Screen - Suicide Last Done: 02/23/25 12:18
*General Assessment Last Done: 02/23/25 12:18
*Neglect/Abuse Screening Last Done: 02/23/25 12:18
*ED- Fall Risk Assessment Last Done: 02/23/25 12:54
*ED COVID-19 Vaccine History Last Done: 02/23/25 12:54
ED- Cardiac Assessment Last Done: 02/23/25 12:56
ED- Neurological Assessment Last Done: 02/23/25 12:56
[2025-02-23] MEDS: NSS 500 IV (13:46)
[2025-02-23 14:00] VITALS: BP 157/60
[2025-02-23 14:31] LABS: Troponin I < 0.012 ng/ml
--- NOTE | 2025-02-23 15:41 | HPS.HSE ---
Addendum entered and electronically signed by Cheryl Callejas MD 02/23/25 17:10:
I saw and examined the patient.
The POLITICAL DIRECTOR or PA's note was reviewed and I agree with the note.
Comment: See changes in my documentation
74-year-old male presented with presyncopal episodes since yesterday. Happens when he is walking. He states that 'it is my blood pressure'. Denies any palpitations, headaches. States that he did not actually fall but lowered himself to the
floor. He has been having some increased generalized weakness and fatigue. No diarrhea no fever. History of orthostatic hypotension
Head CT-no acute changes. Findings compatible with diffuse atrophy
CT thoracic spine-degenerative changes. No recent cervical or thoracic spine fractures. 1.2 cm low-attenuation of the left adrenal nodule likely adenoma
EKG-sinus rhythm with sinus arrhythmia.
Patient is awake and alert
[id number] appreciated
Chest clear to auscultation
Abdomen soft and nontender
No pedal edema
Neurological exam is nonfocal possible cognitive dysfunction?
# Syncope
Patient has multiple episodes of falls from syncope
Likely secondary to orthostatic hypotension
Continue midodrine
IV fluids for acute kidney injury and dehydration
Check orthostatic vital signs
CT of the head without any acute changes
Check troponin
check ECHO in am
# Acute kidney injury on CKD stage III
History of renal transplant 2021 at [place] donors patient's daughter
Continue mycophenolate, prednisone 5 mg daily, tacrolimus 1 mg twice daily
Check tacrolimus level
IV fluids with elevated creatinine
Nephrology evaluation
Check urinalysis-pending
# Type 2 diabetes with neuropathy and nephropathy-update hemoglobin A1c
Takes Lantus 35 units at night and NovoLog 5 AC
Decrease the dose of Lantus to 25 units, Accu-Cheks and sliding scale coverage
# Coronary disease with history of [place] no stents per patient-continue aspirin, statin, beta-norman
# Chronic HFpEF-continue daily weights cautious hydration
# Hypertension by history-patient takes hydralazine, metoprolol. Hold hydralazine. Watch blood pressure.
# Autonomic insufficiency
# Sleep apnea/narcolepsy- Not on CPAP
# Enlarged prostate
# Memory impairment poss vasc dementia
# Ex-smoker
# DVT prophylaxis-Eliquis
# Full code
Discussed with nephrology
Patient is a very poor historian and son does not know a whole lot of his medical history either. Eliquis was not part of the medications listed last time when he was discharged from here in December.
Spoke to son . He fell and hit his head since admission here in December and was admitted to a hospital in [facility]. He was found to have a blood clot in upper body and placed on a blood thinner. Asked son to find out which hospital patient was so
that we can at least get records to find out why the patient is on Eliquis now. It may not be a good medicine for this patient because of his multiple falls.
Time spent more than 75 minutes.
Part of this note was created using voice recognition system. Occasional wrong word or��sound alike� substitutions may have inadvertently occurred due to the inherent limitations of voice recognition software. If noted kindly bring it to my
attention for correction.
Original Note:
Family Physician
-
Family Physician: Ben Suarez
Chief Complaint
-
multiple syncopal episodes
History of Present Illness
Patient is a 74-year-old male with past medical history significant for ESRD s/p renal transplant, DM-II with neuropathy and nephropathy, ASCVD (CAD, PAD), hypertension, orthostatic hypotension, autonomic insufficiency, narcolepsy, depression and
YASH who presented to [facility] ED for evaluation of multiple syncopal episodes. Patient reports that over the past week he has experienced about a half of a dozen episodes of syncope when standing up from bed. He states he has had some lightheadedness,
generalized weakness and increased fatigue. Today he reports having syncopal episode when walking back from using restroom. He reports a history of orthostatic hypotension with midodrine use. Patient denies any fever, chills, chest pain,
palpitations, shortness of breath, nausea, vomiting, constipation, diarrhea or urinary symptoms.
Medical History
Past Medical History
Past Medical History: Reports Other
Additional Past Medical History:
ESRD s/p Renal Transplant
DM-II with Neuropathy and Nephropathy
ASCVD (CAD, PAD)
Hypertension
Orthostatic Hypotension
Autonomic Insufficiency
Narcolepsy
Depression
YASH
HFpEF
Past Surgical History: Reports Other
Additional Past Surgical History:
R Popliteal Artery Angioplasty (08/18/24)
Right Transmetatarsal Amputation (08/21/24)
Bilateral Foot Wound Debridement (08/21/24)
Renal Transplant
RUE AVF
Appendectomy
Social History
Tobacco: Former Smoker (Quit smoking 15 years ago. Approx 40 pack years total use.)
Alcohol: None
Drug: None
Personal:
Living: With Family
Employment: Retired
Family History
Family History: Other (Father: Brain Tumor Mother: PUD Sister: Cancer (unknown type))
Allergies / Home Medications
Allergies reflects when Allergies were last updated in [employer].
Home Medications with original date entered in [employer]
Allergy/Medication List:
Allergies
Allergy/AdvReac Type Severity Reaction Status Date / Time
No Known Allergies Allergy Verified 09/25/24 21:15
Home Medications
prednisone 5 mg tablet 5 mg PO DAILY Anti-Inflammatory 07/23/23
aspirin 81 mg tablet,delayed release 81 mg PO DAILY Blood Clot Prevention/Tx 08/14/24
atorvastatin 40 mg tablet (Lipitor) 40 mg PO DAILY High Cholesterol 08/14/24
magnesium oxide 400 mg PO BID Supplement 08/14/24
mycophenolate sodium 180 mg tablet,delayed release 720 mg PO BID IMMUNOSUPPRESSANT 08/14/24
omega-3 acid ethyl esters 1 gram capsule (Lovaza) 1 cap PO BID Supplement 08/14/24
hydralazine 10 mg tablet 10 mg PO TID Blood Pressure 12/28/24
insulin lispro 100 unit/mL subcutaneous pen (Humalog KwikPen (U-100) Insulin) 5 unit SC AC Diabetes 12/28/24
metoprolol succinate 25 mg tablet,extended release 24 hr 25 mg PO DAILY Blood Pressure 12/28/24
midodrine 5 mg tablet 5 mg PO TIDPRN PRN low SBP <110 #0 tabs 01/03/25
Vitamin D3 1,250 mcg PO DAILY 02/23/25
apixaban 5 mg tablet (Eliquis) 5 mg PO BID 02/23/25
insulin glargine 100 unit/mL (3 mL) subcutaneous pen (Lantus Solostar U-100 Insulin) 35 unit SC HS diabetes 02/23/25
melatonin 3 mg tablet 3 mg PO HS PRN sleep 02/23/25
tacrolimus 1 mg capsule, immediate-release 1 mg PO BID 02/23/25
Review of Systems
-
History Source: Patient
Constitutional: Reports Fatigue; Denies Fever or Chills
Respiratory: Denies Cough or Trouble Breathing
Cardiac: Reports Syncope; Denies Chest Pain or Palpitations
Abdomen/GI: Denies Abdominal Pain, Nausea, Vomiting or Diarrhea
: Denies Dysuria, Frequency, Difficulty Voiding or Urgency
Musculoskeletal: Denies Joint Pain or Edema
Neurological: Reports Dizzy and Weakness
Endocrine: Denies Polyuria or Polydipsia
Psych: Denies Depression
Physical Exam
Vital Signs
Vital Signs
Temp Pulse Resp BP Pulse Ox
98.2 F 65 12 157/60 95
02/23/25 12:18 02/23/25 14:30 02/23/25 14:30 02/23/25 14:00 02/23/25 14:00
Physical Exam
General: Well Developed, Well Nourished, No Apparent Distress, Comfortable and Conversant
HEENT: NormoCephalic, Moist mucous membranes and Atraumatic
Respiratory: Clear and Non Labored Respirations
Cardiac: S1/S2 and Regular Rhythm
GI: Soft, Non Tender, Non Distended and Normal Bowel Sounds
Rectal: Deferred by Provider
Musculoskeletal: No Clubbing, No Cyanosis and No Edema
Skin: Warm and IV/Catheter Site
Neuro: Awake, AO x 3 and Nonfocal/grossly intact
Psych: Calm and Intact Judgment/Insight
Laboratory Results
-
02/23/25 12:33
02/23/25 12:33
Laboratory Results
Total Bilirubin 0.6 mg/dl (0.2-1.3) 02/23/25 12:33
AST 13 U/L (17-59) L 02/23/25 12:33
ALT 16 U/L (0-50) 02/23/25 12:33
Alkaline Phosphatase 86 U/L (38-126) 02/23/25 12:33
Troponin I < 0.012 ng/ml 02/23/25 13:48
Data Reviewed
-
CT Scan: Report Reviewed by me (Head: No acute intracranial abnormalities. Findings again seen compatible with diffuse cortical atrophy with nonspecific white matter changes as described above. C/T-Spine: Degenerative changes. No findings to
suggest recent cervical or thoracic spine fracture. Stable 1.2 cm low-attenuation left )
Medical Tests (Nuc Med, Echo, EKG etc): Report Reviewed by me (EKG: NORMAL SINUS RHYTHM WITH SINUS ARRHYTHMIA MINIMAL VOLTAGE CRITERIA FOR LVH, MAY BE NORMAL VARIANT ( [place] product ))
Lab Data: Labs Reviewed by me (WBC 17.8, Neut 86.3, BUN 51, Creat 1.9, eGFR 37.02)
Impression/Plan
-
IMPRESSION/PLAN:
#syncope multiple episodes over 1 week likely 2/2 orthostatic hypotension
WBC 17.8, Neut 86.[address]: No acute intracranial abnormalities.
Findings again seen compatible with diffuse cortical atrophy with nonspecific white matter changes as described above.
T-spine/C-spine CT: Degenerative changes.
No findings to suggest recent cervical or thoracic spine fracture.
Stable 1.2 cm low-attenuation left adrenal nodule most likely representing an adenoma.
EKG: NORMAL SINUS RHYTHM WITH SINUS ARRHYTHMIA
MINIMAL VOLTAGE CRITERIA FOR LVH, MAY BE NORMAL VARIANT ( [place] product )
- Admit to telemetry
- Orthostatic VS
- IVF NSS 75cc/hr
- Consult Nephrology
#Orthostatic Hypotension
- continue PRN midodrine
#acute kidney injury
#ESRD s/p Renal Transplant
BUN 51, Creat 1.9, eGFR 37.02
- INF bolus given in ED
- trend BMP
- continue mycophenolate, prednisone and tacrolimus
- Consult Nephrology
#DM-II with Neuropathy and Nephropathy
- AccuCheck AC & HS
- SSI
- continue Lantus and Lispro
#ASCVD (CAD, PAD)
- continue atorvastatin
#Hypertension
- continue hydralazine and metoprolol
#chronic HFpEF
- daily weights
- I & Os
#Autonomic Insufficiency
#Narcolepsy
#Depression
#YASH
Code status: full code
DVT prophylaxis: Eliquis
--- NOTE | 2025-02-23 16:47 | W.CON.NEPH ---
Consultation
-
Date/Time Consultation Requested: 02/23/25 1600
Date/Time Consultation Performed: 02/23/25 1600
Requesting Provider: Dr. Callejas
Performing Provider: Dr. Piña
Reason for Consultation: SHERRY
Medical History
-
Chief Complaint: SHERRY/Renal Transplant
History of Present Illness:
74-year-old male history of ESRD from diabetic nephropathy s/p renal transplant (donor daughter) in 10/2022 at [facility] on tacrolimus, Myfortic, prednisone. He has labile BPs with significant orthostatic hypotension with autonomic dysfunction related
to diabetes. He is on midodrine 3 times daily as well as hydralazine 3 times daily. He says that in the last 2 weeks time he has fallen at least 6 times most recently. This only occurs when he stands up. This never occurred in the seated
position. Because of this he ultimately came to the emergency room for evaluation. He had blood work done about 2 weeks ago which had shown rising creatinine at 1.7. Is now risen further at 1.9. He has mild hyponatremia. He says that his
appetite has been poor lately as well. He has an appointment with [facility] transplant on March 15. His diabetes is stable on insulin therapy.
Past Medical History
1. ESRD due to diabetes. s/p LRTxp 10/2022 at [facility]
2. Diabetes mellitus, type 2 with complications
3. Orthostasis.
4. Right AV fistula.
5. Autonomic insufficiency
6. ADHD.
7. Sleep apnea.
8. Hyperlipidemia.
9. BPH.
10. Elevated PSA.
11. Secondary hyperparathyroidism.
CKD with baseline creatinine of 1.2-1.5
Past Surgical History: Other (Appendectomy Laser treatment of both eyes Right upper extremity speech slow reaction Right upper extremity fistulogram Right upper extremity fistula revision, kidney transplant, TURP)
Social History
Tobacco: Non-Smoker
Alcohol: None
Personal:
Living: With Family
Family History
Family History: Not Pertinent
Allergies / Home Medications
Allergy/AdvReac Type Severity Reaction Status Date / Time
No Known Allergies Allergy Verified 09/25/24 21:15
�Medication �Instructions �Recorded �Confirmed �Type
prednisone 5 mg tablet 5 mg PO DAILY Anti-Inflammatory 07/23/23 02/23/25 History
aspirin 81 mg tablet,delayed 81 mg PO DAILY Blood Clot 08/14/24 02/23/25 History
release Prevention/Tx
atorvastatin 40 mg tablet (Lipitor) 40 mg PO DAILY High Cholesterol 08/14/24 02/23/25 History
magnesium oxide 400 mg PO BID Supplement 08/14/24 02/23/25 History
mycophenolate sodium 180 mg 720 mg PO BID IMMUNOSUPPRESSANT 08/14/24 02/23/25 History
tablet,delayed release
omega-3 acid ethyl esters 1 gram 1 cap PO BID Supplement 08/14/24 02/23/25 History
capsule (Lovaza)
hydralazine 10 mg tablet 10 mg PO TID Blood Pressure 12/28/24 02/23/25 History
insulin lispro 100 unit/mL 5 unit SC AC Diabetes 12/28/24 02/23/25 History
subcutaneous pen (Humalog KwikPen
(U-100) Insulin)
metoprolol succinate 25 mg 25 mg PO DAILY Blood Pressure 12/28/24 02/23/25 History
tablet,extended release 24 hr
midodrine 5 mg tablet 5 mg PO TIDPRN PRN low SBP <110 #0 01/03/25 02/23/25 Rx
tabs
Vitamin D3 1,250 mcg PO DAILY 02/23/25 02/23/25 History
apixaban 5 mg tablet (Eliquis) 5 mg PO BID 02/23/25 02/23/25 History
insulin glargine 100 unit/mL (3 35 unit SC HS diabetes 02/23/25 02/23/25 History
mL) subcutaneous pen (Lantus
Solostar U-100 Insulin)
melatonin 3 mg tablet 3 mg PO HS PRN sleep 02/23/25 02/23/25 History
tacrolimus 1 mg capsule, 1 mg PO BID 02/23/25 02/23/25 History
immediate-release
Review of Systems
-
Decreased appetite. No chest pain or shortness of breath. No diarrhea.
All other systems: Negative unless noted
Physical Exam
Vital Signs
Vital Signs
Temp Pulse Resp BP Pulse Ox
98.2 F 65 12 157/60 95
02/23/25 12:18 02/23/25 14:30 02/23/25 14:30 02/23/25 14:00 02/23/25 14:00
Lab Results
WBC 17.8 10^3/uL (4.8-10.8) H 02/23/25 12:33
RBC 3.86 10^6/uL (4.70-6.10) L 02/23/25 12:33
Hgb 10.2 g/dL (13.0-18.0) L 02/23/25 12:33
Hct 31.9 % (39.0-52.0) L 02/23/25 12:33
Plt Count 256 10^3/uL (130-400) 02/23/25 12:33
Sodium 134 mmol/L (135-145) L 02/23/25 12:33
Potassium 5.1 mmol/L (3.5-5.1) 02/23/25 12:33
Chloride 105 mmol/L (98-107) 02/23/25 12:33
Carbon Dioxide 21 mmol/L (22-30) L 02/23/25 12:33
BUN 51 mg/dl (9-20) H 02/23/25 12:33
Creatinine 1.9 mg/dL (0.7-1.3) H 02/23/25 12:33
eGFR 37.02 02/23/25 12:33
Glucose 116 mg/dl (70-99) H 02/23/25 12:33
Calcium 8.9 mg/dl (8.4-10.2) 02/23/25 12:33
Albumin 3.7 g/dl (3.5-5.0) 02/23/25 12:33
Laboratory Tests
01/03/25 02/12/25 02/12/25
05:23 07:23 07:26
Sodium 138
Potassium 4.6 5.7 H
Creatinine 1.5 H 1.7 H
Protein/Creatinin Ratio 1.2
Tacrolimus 6.9
Physical Exam
Patient is awake alert oriented and in no distress. Mood and affect were pleasant, insight and judgment were good. Pupils are equal round and reactive to light, extraocular movements are intact, sclera were anicteric. Hearing was normal, ears and
nose are intact. Oropharynx was clear. Neck was supple with trachea midline and no thyromegaly. Heart was regular rate and rhythm without rubs. Lower extremities without edema. Lungs were clear to auscultation bilaterally and with normal
excursion. Abdomen was soft, nontender, with normal active bowel sounds, and no hepatosplenomegaly. Skin was without rash and with normal turgor. Right AV fistula with thrill and bruit
Data Reviewed
-
CT Scan: Report Reviewed by me (CT head 02/23/2025 no acute disease)
Medical Tests (Nuc Med, Echo etc): Image Personally Visualized and interpreted (EKG 02/23/2025 by my reading normal sinus rhythm)
Labs: Labs Reviewed by me
Old Records: Reviewed
Assessment/Plan
-
Impression:
SHERRY
Right lower quadrant living related kidney transplant October 2022
History of enterococcal bacteremia and UTI
CKD IIIb-baseline cr 1.3-1.5
History of diabetic nephropathy
b/l LE Wounds
ASCVD / PAD
Benign Hypertension
Anxiety
syncope from severe orthostatic hypotension
DM2-with microvascular complications
Anxiety, Insomnia
BPH
1.2 cm left adrenal adenoma
Plan:
Follow tacrolimus level.
Continue mycophenolate and prednisone.
IV fluids saline
Follow BMP
May consider droxidopa
Would use hydralazine only at nighttime for bed
Will need to eventually increase morning midodrine when he will be out of bed. This may not necessarily be true while in the hospital.
--- NOTE | 2025-02-23 17:29 | CM ---
CM reviewed chart and met with pt bedside in ED. Pt lives with his in one story home, [address].
Independent in ADLs and personal care, ambulates with SPC, also has RW.
Current with [facility], has been to [facility] in past but does not want to go back there.
PCP: Ben Suarez
Pharmacy: [facility]
CM will continue to follow for all discharge planning needs.
--- NOTE | 2025-02-23 18:42 | W.PN.UPDATE ---
Update Note
Progress Note Update
Son called back and stated that patient was admitted to [facility] after his discharge here from December and that is when they found a blood clot in his leg and started him on Eliquis
Records requested
urine still pending
[2025-02-23 18:43] LABS: Urine Character Slightly Cloudy (Clear)
[2025-02-23 18:45] VITALS: BP 105/49; BMI 25.8
[2025-02-23 19:00] LABS: Urine Squamous Cell 0-2 /LPF (Few)
[2025-02-23 19:01] LABS: Urine Red Blood Cell 16-20 /HPF (0-2); Urine White Cell 50-60 /HPF (0-5)
[2025-02-23 19:04] LABS: Troponin I < 0.012 ng/ml
[2025-02-23 19:36] LABS: Glucose - Point of Care 290 mg/dl (70-99)
[2025-02-23] MEDS: TYLENOL 650 MG PO (20:05)
[2025-02-23] MEDS: MYFORTIC DELAYED REL. 720 MG PO (20:06)
[2025-02-23] MEDS: MAG-TAB SR 84 MG PO (20:06)
[2025-02-23] MEDS: ELIQUIS 5 MG PO (20:06)
[2025-02-23] MEDS: PROGRAF 1 MG PO (20:06)
[2025-02-23] MEDS: NOVOLOG FLEXPEN 5 UNITS SC (20:06)
[2025-02-23] MEDS: NSS 1000 IV (20:07)
[2025-02-23] MEDS: NOVOLOG FLEXPEN-LOW RESISTANCE SC (21:00)
[2025-02-23] MEDS: AMPICILLIN 108 MG IV (21:07)
[2025-02-23 21:52] LABS: Glucose - Point of Care 384 mg/dl (70-99)
[2025-02-23] MEDS: NOVOLOG FLEXPEN 10 UNITS SC (22:10)
[2025-02-23] MEDS: LANTUS 0.25 UNITS SC (22:13)
[2025-02-24] VITALS (9 sets, daily range): BP systolic 93–198; BP diastolic 42–98; PULSE 59–79; O2SAT 98; BMI 26.0
[2025-02-24 00:12] LABS: Glucose - Point of Care 286 mg/dl (70-99)
[2025-02-24] MEDS: OFIRMEV 100 IV (00:59)
[2025-02-24 01:08] LABS: Troponin I < 0.012 ng/ml
[2025-02-24] MEDS: AMPICILLIN 108 MG IV (03:47)
[2025-02-24 07:11] LABS: Glucose - Point of Care 149 mg/dl (70-99)
[2025-02-24] MEDS: NOVOLOG FLEXPEN-LOW RESISTANCE SC (07:25)
[2025-02-24 07:54] LABS: Hematocrit 29.8 % (39.0-52.0); Hemoglobin 9.3 g/dL (13.0-18.0); Mean Corp Hgb Conc. 31.2 g/dL (33.0-37.0); Mean Corpuscular Volume 83.9 fL (80.0-94.0); Platelet Count 270 10^3/uL (130-400); Red Cell Dist. Width 15.1 % (11.5-14.5)
--- NOTE | 2025-02-24 08:16 | VNURNOTE ---
Chart reviewed. Patient is current with [facility]. Will continue to follow hospital course and DC plans.
[2025-02-24 08:22] LABS: Troponin I < 0.012 ng/ml
[2025-02-24 08:30] LABS: Blood Urea Nitrogen 49 mg/dl (9-20); Calcium 8.8 mg/dl (8.4-10.2); Carbon Dioxide 17 mmol/L (22-30); Chloride 110 mmol/L (98-107); Estimated Creatinine Clearance 37 ml/min; Glucose 158 mg/dl (70-99); Potassium 4.9 mmol/L (3.5-5.1); Sodium 139 mmol/L (135-145); eGFR 37.02
[2025-02-24] MEDS: NOVOLOG FLEXPEN 5 UNITS SC ×3 (08:47→16:50)
[2025-02-24] MEDS: NSS 1000 IV (08:48)
[2025-02-24] MEDS: VITAMIN D3 (cholecalciferol) 25 MCG PO (08:51)
[2025-02-24] MEDS: ROCEPHIN 1000 MG IV (08:51)
[2025-02-24] MEDS: STERILE WATER FOR INJECTION 10 ML IV (08:51)
[2025-02-24] MEDS: LIPITOR 40 MG PO (08:52)
[2025-02-24] MEDS: MYFORTIC DELAYED REL. 720 MG PO ×2 (08:52→19:35)
[2025-02-24] MEDS: DELTASONE 10 MG PO (08:52)
[2025-02-24] MEDS: TOPROL XL 12.5 MG PO (08:52)
[2025-02-24] MEDS: PROGRAF 1 MG PO ×2 (08:52→19:35)
[2025-02-24] MEDS: ELIQUIS 5 MG PO ×2 (08:53→19:35)
[2025-02-24] MEDS: ASPIR LOW (ENTERIC COATED) 81 MG PO (08:53)
[2025-02-24] MEDS: MAG-TAB SR 84 MG PO ×2 (08:53→19:35)
[2025-02-24 09:02] LABS: Glycohemoglobin (HgbA1c) 8.6 % (4.0-5.6)
--- NOTE | 2025-02-24 10:28 | W.PN.HOSP.TC ---
Today's Communication/Plan
-
See PN
Assessment / Plan
Assessment / Plan
74yo M with PMHx of CKD 3b, kidney transplant, HFpEF, DM, Hx of GIB, orthostatic hypotension 2/2 autonomic neuropathy YASH came after syncope. He is getting frequent syncope with LOC for the past 6 months. Found orthostatic hypotension in ED. Also
c/o severe mid back pain started after the fall. Also SHERRY.
A/P:
#Syncope
#Orthostatic hypotension
Telemetry with sinus rhyhtm
positive orthostatics
Advised Abdominal binder on ambulation, since compression stockings alsone seems to be not sufficienct
No acute findings of CT head
Might need droxidopa
PT/OT
#Severe thoracic spine pain
s/p fall
CT neg for fracture
Pain is significant limiting ambulation - reasonable to eval with MRI thoracic
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
#SHERRY on CKD stage 3b
hydrate and follow BMP
Nephro consult
cont Tacrolimus, Mycophenolate and Prednisone
Tacrolimus 6.9 as of 02/12/25 - sent repeat
#Episodes of hypertension with Hx of essential HTN and orthostatic hypotension
With syncope - might need to allow permissive hypertension
Hydralazie only at nighttime when going to bed, avoid walking after that till AM
#Leukocytosis
concern for UTI, cannot exclude stress related
FOllow Ucx, cont Rocephin
Bcx pending
#Hx of DVT
cont Eliquis
#DM type 2 with nephropathy
Accuchecks, Insulin SS, cont basal/bolus
#PAD
#HLD
cont hoem meds
#subclinical hypothyroidism
with Hx of orthostatic hyopotension reasonabel to start Synthroid 25mcg and recheck TFT in 2-3 weeks
#Most likely iatrogenic adrenal insufficiency 2/2 mcc steroids
increase Prednisone with oerthostasis
PPI ppx
#Chronic anemia
follow CBC
DVT ppx Elqiuis
Full code
I have spent at least 58min reviewing chart, test results, communication with consultants and providing direct patient care
Anticipated Discharge: > 48 hours
Subjective/Interval History
-
Date of Service: February 24, 2025
Objective Data
-
Labs:
Laboratory Results
02/24/25
07:40
WBC 19.0 H
Hgb 9.3 L
Hct 29.8 L
Plt Count 270
Sodium 139
Potassium 4.9
Chloride 110 H
Carbon Dioxide 17 L
BUN 49 H
Creatinine 1.9 H
Glucose 158 H
Calcium 8.8
Vital Signs:
Vital Signs
Temp Pulse Resp BP Pulse Ox
98.1 F 76 18 131/90 99
02/24/25 07:00 02/24/25 07:00 02/24/25 07:00 02/24/25 08:52 02/24/25 07:00
I&O
02/23/25 02/24/25 02/25/25
06:59 06:59 06:59
Output Total 750 / 750
Balance -750 / -750
Review of Systems
-
History Source: Patient
All other systems: Reviewed and negative
Musculoskeletal: Reports Other (back pain)
Physical Exam
-
General: No Apparent Distress
HEENT: Normocephalic
Respiratory: Clear to Auscultation
Cardiac: Regular Rhythm
GI: Soft, Nontender and Nondistended
Musculoskeletal: No Clubbing, No Cyanosis, No Edema and Other (point tenderness in thoracic spine)
Neuro: Awake, Alert, Oriented and AO x 3
Psych: Calm
[2025-02-24] MEDS: ULTRAM 25 MG PO ×2 (11:24→19:34)
[2025-02-24 11:35] LABS: Glucose - Point of Care 187 mg/dl (70-99)
--- NOTE | 2025-02-24 12:10 | W.PN.NEPH.PH ---
Today's Communication / Plan
-
see plan
Assessment/Plan
-
Impression:
SHERRY
Right lower quadrant living related kidney transplant October 2022
History of enterococcal bacteremia and UTI
CKD IIIb-baseline cr 1.3-1.5
History of diabetic nephropathy
b/l LE Wounds
ASCVD / PAD
Benign Hypertension
Anxiety
syncope from severe orthostatic hypotension
DM2-with microvascular complications
Anxiety, Insomnia
BPH
1.2 cm left adrenal adenoma
Plan:
SHERRY-cr no change suspect prerenal
UTI sample, await U cx, also follow bladder scan with known h/o retention, no graft tenderness
Follow tacrolimus level.pending
Continue tac, mycophenolate and prednisone.
worsening met acidosis-change iVF to bicarb
cont abx per primary
Bp stable with out hydralazine and low dose BB
dd not require midodirne yet
Will need to eventually need morning midodrine when he will be out of bed. This may not necessarily be true while in the hospital.
May consider droxidopa in future
pain control, CT cervical and thorax noted no acute findings
d/w pt and nursing
-
-
Date of Service: February 24, 2025
CC / HPI / ROS
-
Chief Complaint:
SHERRY with h/o KTP
History of Present Illness:
cr no change at 1.9, Bps table but orhtostaitc still
no fever, WBC still up at 19k
pending u and bld cx
met acidosis bicarb at 17 on NS IVF
Review of Systems:
no cp ro sob
but c/o upper back pain
no dysuria
Labs
-
Labs:
WBC 19.0 10^3/uL (4.8-10.8) H 02/24/25 07:40
RBC 3.55 10^6/uL (4.70-6.10) L 02/24/25 07:40
Hgb 9.3 g/dL (13.0-18.0) L 02/24/25 07:40
Hct 29.8 % (39.0-52.0) L 02/24/25 07:40
Plt Count 270 10^3/uL (130-400) 02/24/25 07:40
Sodium 139 mmol/L (135-145) 02/24/25 07:40
Potassium 4.9 mmol/L (3.5-5.1) 02/24/25 07:40
Chloride 110 mmol/L (98-107) H 02/24/25 07:40
Carbon Dioxide 17 mmol/L (22-30) L 02/24/25 07:40
BUN 49 mg/dl (9-20) H 02/24/25 07:40
Creatinine 1.9 mg/dL (0.7-1.3) H 02/24/25 07:40
eGFR 37.02 02/24/25 07:40
Glucose 158 mg/dl (70-99) H 02/24/25 07:40
Calcium 8.8 mg/dl (8.4-10.2) 02/24/25 07:40
Albumin 3.7 g/dl (3.5-5.0) 02/23/25 12:33
Physical Exam
-
Vital Signs:
Vital Signs
Temp Pulse Resp BP Pulse Ox
98.0 F 78 20 122/65 98
02/24/25 11:00 02/24/25 11:00 02/24/25 11:00 02/24/25 11:00 02/24/25 11:00
Cardiovascular:: Regular rate and rhythm
Respiratory:: Bilateral: CTA
Lung Excursion:: Normal
Abdomen:: Nontender and Soft
Bowel Sounds:: Normal
Extremity Edema:: None: Bilateral:
Davenport Catheter: Yes
[2025-02-24] MEDS: NOVOLOG FLEXPEN-LOW RESISTANCE 1 UNITS SC (12:14)
[2025-02-24] MEDS: SODIUM BICARBONATE 1075 MEQ IV (15:16)
[2025-02-24 16:35] LABS: Glucose - Point of Care 265 mg/dl (70-99)
[2025-02-24] MEDS: NOVOLOG FLEXPEN-LOW RESISTANCE 3 UNITS SC (16:51)
[2025-02-24 21:28] LABS: Glucose - Point of Care 270 mg/dl (70-99)
[2025-02-24] MEDS: LANTUS 0.25 UNITS SC (21:33)
[2025-02-25] VITALS (7 sets, daily range): BP systolic 112–190; BP diastolic 54–90; PULSE 66–95; O2SAT 97; BMI 26.0
[2025-02-25] MEDS: APRESOLINE 5 MG IV (00:42)
[2025-02-25] MEDS: ULTRAM 25 MG PO ×2 (01:52→08:02)
[2025-02-25] MEDS: SYNTHROID 25 MCG PO (06:12)
[2025-02-25] MEDS: SODIUM BICARBONATE IV (06:19)
[2025-02-25 07:24] LABS: Hematocrit 30.1 % (39.0-52.0); Hemoglobin 9.4 g/dL (13.0-18.0); Mean Corp Hgb Conc. 31.2 g/dL (33.0-37.0); Mean Corpuscular Volume 82.2 fL (80.0-94.0); Nucleated Red Blood Cells % 0 % (-); Platelet Count 251 10^3/uL (130-400); Red Cell Dist. Width 14.9 % (11.5-14.5)
[2025-02-25 07:32] LABS: Glucose - Point of Care 203 mg/dl (70-99)
[2025-02-25] MEDS: NOVOLOG FLEXPEN-LOW RESISTANCE 2 UNITS SC ×2 (07:40→15:42)
[2025-02-25] MEDS: NOVOLOG FLEXPEN 5 UNITS SC ×3 (07:41→15:41)
[2025-02-25] MEDS: ROCEPHIN 1000 MG IV (07:42)
[2025-02-25] MEDS: MYFORTIC DELAYED REL. 720 MG PO ×2 (07:42→20:06)
[2025-02-25] MEDS: PROGRAF 1 MG PO ×2 (07:42→20:06)
[2025-02-25] MEDS: LIPITOR 40 MG PO (07:42)
[2025-02-25] MEDS: STERILE WATER FOR INJECTION 10 ML IV (07:42)
[2025-02-25] MEDS: VITAMIN D3 (cholecalciferol) 25 MCG PO (07:43)
[2025-02-25] MEDS: DELTASONE 10 MG PO (07:43)
[2025-02-25] MEDS: MAG-TAB SR 84 MG PO ×2 (07:43→20:06)
[2025-02-25] MEDS: ASPIR LOW (ENTERIC COATED) 81 MG PO (07:43)
[2025-02-25] MEDS: TOPROL XL 12.5 MG PO (07:43)
[2025-02-25] MEDS: ELIQUIS 5 MG PO ×2 (07:43→20:05)
[2025-02-25] MEDS: PROTONIX 40 MG PO (07:43)
[2025-02-25 07:55] LABS: ALT (SGPT) 14 U/L (0-50); AST (SGOT) 11 U/L (17-59); Albumin 3.5 g/dl (3.5-5.0); Alkaline Phosphatase 104 U/L (38-126); Blood Urea Nitrogen 43 mg/dl (9-20); Calcium 8.9 mg/dl (8.4-10.2); Carbon Dioxide 20 mmol/L (22-30); Chloride 107 mmol/L (98-107); Estimated Creatinine Clearance 42 ml/min; Glucose 192 mg/dl (70-99); Potassium 4.7 mmol/L (3.5-5.1); Sodium 137 mmol/L (135-145); Total Protein 6.4 g/dl (6.3-8.2); eGFR 42.30
--- NOTE | 2025-02-25 11:23 | W.PN.HOSP.TC ---
Today's Communication/Plan
-
remains asymptomatic
hydralazine PRN
cont cefrtriaxone, plan for d/c when Ucx result
Assessment / Plan
Assessment / Plan
74yo M with PMHx of CKD 3b, kidney transplant, HFpEF, DM, Hx of GIB, orthostatic hypotension 2/2 autonomic neuropathy YASH came after syncope. He is getting frequent syncope with LOC for the past 6 months. Found orthostatic hypotension in ED. Also
c/o severe mid back pain started after the fall. Also SHERRY.
A/P:
#Syncope
#Orthostatic hypotension
Telemetry with sinus rhyhtm
positive orthostatics
Advised Abdominal binder on ambulation, since compression stockings alsone seems to be not sufficienct
No acute findings of CT head
Might need droxidopa
PT/OT
Echo: EF 60%, no significant valvular dysfunction. Compared to previous echo from September 2024, findings are similar.
#Severe thoracic spine pain
s/p fall
CT neg for fracture
Pain is significant limiting ambulation - reasonable to eval with MRI thoracic
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
#SHERRY on CKD stage 3b
hydrate and follow BMP
Nephro consult
cont Tacrolimus, Mycophenolate and Prednisone
Tacrolimus 6.9 as of 02/12/25 - sent repeat - 5.0
#Episodes of hypertension with Hx of essential HTN and orthostatic hypotension
With syncope - might need to allow permissive hypertension
Hydralazine only at nighttime when going to bed, avoid walking after that till AM
#Leukocytosis
concern for UTI, cannot exclude stress related
cont Rocephin
Ucx GNB
Bcx NTD
#Hx of DVT
cont Eliquis
#DM type 2 with nephropathy
Accuchecks, Insulin SS, cont basal/bolus
#PAD
#HLD
cont home meds
#subclinical hypothyroidism
with Hx of orthostatic hypotension reasonable to start Synthroid 25mcg and recheck TFT in 2-3 weeks
#Most likely iatrogenic adrenal insufficiency 2/2 snf steroids
increase Prednisone with oerthostasis
PPI ppx
#Chronic anemia
follow CBC
DVT ppx Elqiuis
Full code
I have spent at least 38min reviewing chart, test results, communication with consultants and providing direct patient care
Anticipated Discharge: Within 24 hours
Subjective/Interval History
-
Date of Service: February 25, 2025
Objective Data
-
Labs:
Laboratory Results
02/25/25
06:53
WBC 13.7 H
Hgb 9.4 L
Hct 30.1 L
Plt Count 251
Sodium 137
Potassium 4.7
Chloride 107
Carbon Dioxide 20 L
BUN 43 H
Creatinine 1.7 H
Glucose 192 H
Calcium 8.9
Total Bilirubin 0.3
AST 11 L
ALT 14
Alkaline Phosphatase 104
Vital Signs:
Vital Signs
Temp Pulse Resp BP Pulse Ox
97.6 F 66 14 161/63 96
02/25/25 07:24 02/25/25 07:24 02/25/25 07:24 02/25/25 07:24 02/25/25 07:24
I&O
02/24/25 02/25/25 02/26/25
06:59 06:59 06:59
Intake Total 1440 / 1440
Output Total 750 / 750 1225 / 1225
Balance -750 / -750 215 / 215
[2025-02-25 11:46] LABS: Glucose - Point of Care 166 mg/dl (70-99)
[2025-02-25] MEDS: NOVOLOG FLEXPEN-LOW RESISTANCE 1 UNITS SC (11:48)
--- NOTE | 2025-02-25 12:51 | W.PN.NEPH.PH ---
Today's Communication / Plan
-
at d/c
hold hydralazine
cont current dose of BB
midodrine 5mg in during activity in the morning and BP <110
BMP in 3days upon d/c
f/u Dr Villasenor in 2-3weeks
he also has [employer] trasnplant f/u next week
Assessment/Plan
-
Impression:
SHERRY
Right lower quadrant living related kidney transplant October 2022
History of enterococcal bacteremia and UTI
CKD IIIb-baseline cr 1.3-1.5
History of diabetic nephropathy
b/l LE Wounds
ASCVD / PAD
Benign Hypertension
Anxiety
syncope from severe orthostatic hypotension
DM2-with microvascular complications
Anxiety, Insomnia
BPH
1.2 cm left adrenal adenoma
Plan:
SHERRY-cr improving to 1.7, suspect prerenal
UTI sample, await U cx, also follow bladder scan with known h/o retention, no graft tenderness
tac level at 5 with in range, cont tac, mycophenolate and prednisone.
improving met acidosis-ok to wean off IVF
cont abx per primary
Bp stable with out hydralazine and low dose BB
dd not require midodirne yet , noted orhtostatic vitals this am
Will need to eventually need morning midodrine when he will be out of bed. This may not necessarily be true while in the hospital.
May consider droxidopa in future
d/w pt
-
-
Date of Service: February 25, 2025
CC / HPI / ROS
-
Chief Complaint:
SHERRY with h/o KTP
History of Present Illness:
cr better at 1.7 Bps stable but orhtostaitc still
no fever, WBC down at 13.7k
GNB in Urine
met acidosis bicarb better at 20 on NS IVF
Review of Systems:
no cp ro sob
dizzy upon standing
Labs
-
Labs:
WBC 13.7 10^3/uL (4.8-10.8) H 02/25/25 06:53
RBC 3.66 10^6/uL (4.70-6.10) L 02/25/25 06:53
Hgb 9.4 g/dL (13.0-18.0) L 02/25/25 06:53
Hct 30.1 % (39.0-52.0) L 02/25/25 06:53
Plt Count 251 10^3/uL (130-400) 02/25/25 06:53
Sodium 137 mmol/L (135-145) 02/25/25 06:53
Potassium 4.7 mmol/L (3.5-5.1) 02/25/25 06:53
Chloride 107 mmol/L (98-107) 02/25/25 06:53
Carbon Dioxide 20 mmol/L (22-30) L 02/25/25 06:53
BUN 43 mg/dl (9-20) H 02/25/25 06:53
Creatinine 1.7 mg/dL (0.7-1.3) H 02/25/25 06:53
eGFR 42.30 02/25/25 06:53
Glucose 192 mg/dl (70-99) H 02/25/25 06:53
Calcium 8.9 mg/dl (8.4-10.2) 02/25/25 06:53
Albumin 3.5 g/dl (3.5-5.0) 02/25/25 06:53
Physical Exam
-
Vital Signs:
Vital Signs
Temp Pulse Resp BP Pulse Ox
97.7 F 67 14 150/74 97
02/25/25 11:05 02/25/25 11:05 02/25/25 11:05 02/25/25 11:05 02/25/25 11:05
Cardiovascular:: Regular rate and rhythm
Respiratory:: Bilateral: CTA
Lung Excursion:: Normal
Abdomen:: Nontender and Soft
Bowel Sounds:: Normal
Extremity Edema:: None: Bilateral:
Davenport Catheter: No
[2025-02-25 15:34] LABS: Glucose - Point of Care 206 mg/dl (70-99)
--- NOTE | 2025-02-25 15:36 | CM ---
Addendum entered by Audrey Mcghee 02/25/25 16:46:
Patient switched to inpatient IMM given.
Original Note:
Home with [facility] when stable.
Plan; Home with [facility].
[2025-02-25 21:36] LABS: Glucose - Point of Care 279 mg/dl (70-99)
[2025-02-25] MEDS: LANTUS 0.25 UNITS SC (21:50)
[2025-02-26 03:00] VITALS: BP 119/87
[2025-02-26 03:56] VITALS: BMI 25.6
[2025-02-26] MEDS: SYNTHROID 25 MCG PO (06:10)
[2025-02-26 07:29] LABS: Glucose - Point of Care 218 mg/dl (70-99)
[2025-02-26 07:30] VITALS: BP 161/73
[2025-02-26 08:40] VITALS: BP 101/54; BP 155/81; BP 162/76; PULSE 72; PULSE 73; PULSE 78
[2025-02-26] MEDS: LIPITOR 40 MG PO (08:40)
[2025-02-26] MEDS: ELIQUIS 5 MG PO (08:41)
[2025-02-26] MEDS: PROTONIX 40 MG PO (08:41)
[2025-02-26] MEDS: VITAMIN D3 (cholecalciferol) 25 MCG PO (08:41)
[2025-02-26] MEDS: MAG-TAB SR 84 MG PO (08:41)
[2025-02-26] MEDS: ASPIR LOW (ENTERIC COATED) 81 MG PO (08:41)
[2025-02-26] MEDS: TOPROL XL 12.5 MG PO (08:41)
[2025-02-26] MEDS: MYFORTIC DELAYED REL. 720 MG PO (08:42)
[2025-02-26] MEDS: PROGRAF 1 MG PO (08:47)
[2025-02-26] MEDS: DELTASONE 10 MG PO (08:47)
[2025-02-26] MEDS: NOVOLOG FLEXPEN 5 UNITS SC ×2 (08:49→12:26)
[2025-02-26] MEDS: NOVOLOG FLEXPEN-LOW RESISTANCE 2 UNITS SC (08:51)
[2025-02-26] MEDS: ULTRAM 25 MG PO (09:06)
[2025-02-26] MEDS: OMNICEF 300 MG PO (09:07)
[2025-02-26] MEDS: STERILE WATER FOR INJECTION IV (09:11)
[2025-02-26] MEDS: ROCEPHIN IV (09:11)
[2025-02-26 09:14] LABS: Hematocrit 30.2 % (39.0-52.0); Hemoglobin 9.3 g/dL (13.0-18.0); Mean Corp Hgb Conc. 30.8 g/dL (33.0-37.0); Mean Corpuscular Volume 83.2 fL (80.0-94.0); Nucleated Red Blood Cells % 0 % (-); Platelet Count 265 10^3/uL (130-400); Red Cell Dist. Width 14.8 % (11.5-14.5)
--- NOTE | 2025-02-26 09:49 | W.PN.HOSP.TC ---
Today's Communication/Plan
-
dc
Assessment / Plan
Assessment / Plan
74yo M with PMHx of CKD 3b, kidney transplant, HFpEF, DM, Hx of GIB, orthostatic hypotension 2/2 autonomic neuropathy YASH came after syncope. He is getting frequent syncope with LOC for the past 6 months. Found orthostatic hypotension in ED. Also
c/o severe mid back pain started after the fall and SHERRY
Orthostatic BP and symptoms improved with using compression stocks and abdominal binder when ambulating - cont same. for hypertension - nighttime hydralazine and avoid getting up from the bed until AM. Patient aware and agreeable. MRI back showed no
acute fracture. Symptom complex concerning for parkinsonism - referred to outpatient neurology. Ucx grew Klebsiella pneumonia, sensitive to 3rd gen cephalosporin. Reasonable for 10 days treatment. Also prednisone increased to 10mg with concern that
iatrogenic adrenal insufficiency can play role. Outpatient Endo advised. Medically stable for d/c home
A/P:
#Syncope 2/2 Orthostatic hypotension
#L hand tremor at rest
Concern for Parkinson-like disorder
With orthostasis and absence of stiffness - no direct indication for immediate medical therapy. Advised outpatient neurology - patient aware and in agreement
Telemetry with sinus rhythm
positive orthostatics
Advised Abdominal binder on ambulation, since compression stockings also seems to be not sufficient
No acute findings of CT head
Might need droxidopa
PT/OT
Echo: EF 60%, no significant valvular dysfunction. Compared to previous echo from September 2024, findings are similar.
#Severe thoracic spine pain
s/p fall
CT neg for fracture
Pain is significant limiting ambulation - reasonable to eval with MRI thoracic
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
#SHERRY on CKD stage 3b
hydrate and follow BMP
Nephro consult: during activity in the morning and BP <110
cont Tacrolimus, Mycophenolate and Prednisone
Tacrolimus 6.9 as of 02/12/25 - sent repeat - 5.0
#Episodes of hypertension with Hx of essential HTN and orthostatic hypotension
With syncope - might need to allow permissive hypertension
Hydralazine only at nighttime when going to bed, avoid walking after that till AM
#Leukocytosis
concern for UTI, cannot exclude stress related
cont Rocephin
Ucx GNB
Bcx NTD
#Hx of DVT
cont Eliquis
#DM type 2 with nephropathy
Accuchecks, Insulin SS, cont basal/bolus
#PAD
#HLD
cont home meds
#subclinical hypothyroidism
with Hx of orthostatic hypotension reasonable to start Synthroid 25mcg and recheck TFT in 2-3 weeks
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
increase Prednisone with orthostasis
PPI ppx
#Chronic anemia
follow CBC
DVT ppx Elqiuis
Full code
I have spent at least 38min reviewing chart, test results, communication with consultants and providing direct patient care
Anticipated Discharge: Today
Subjective/Interval History
-
Date of Service: February 26, 2025
Objective Data
-
Labs:
Laboratory Results
02/26/25
08:23
WBC 11.1 H
Hgb 9.3 L
Hct 30.2 L
Plt Count 265
Sodium Pending
Potassium Pending
Chloride Pending
Carbon Dioxide Pending
BUN Pending
Creatinine Pending
Glucose Pending
Calcium Pending
Total Bilirubin Pending
AST Pending
ALT Pending
Alkaline Phosphatase Pending
Vital Signs:
Vital Signs
Temp Pulse Resp BP Pulse Ox
97.7 F 68 16 161/73 97
02/26/25 07:30 02/26/25 07:30 02/26/25 07:30 02/26/25 08:41 02/26/25 07:30
I&O
02/25/25 02/26/25 02/27/25
06:59 06:59 06:59
Intake Total 1440 / 1440 720 / 720
Output Total 1225 / 1225 450 / 450
Balance 215 / 215 270 / 270
Review of Systems
-
History Source: Patient
All other systems: Reviewed and negative
Physical Exam
-
General: No Apparent Distress
HEENT: Normocephalic
Cardiac: Regular Rhythm
GI: Soft, Nontender and Nondistended
Musculoskeletal: No Clubbing, No Cyanosis and No Edema
Neuro: Awake, Alert, Oriented and AO x 3
Psych: Calm
[2025-02-26] MEDS: FLEXERIL 5 MG PO (11:07)
[2025-02-26 11:34] LABS: ALT (SGPT) 14 U/L (0-50); AST (SGOT) 10 U/L (17-59); Albumin 3.6 g/dl (3.5-5.0); Alkaline Phosphatase 97 U/L (38-126); Blood Urea Nitrogen 37 mg/dl (9-20); Calcium 8.8 mg/dl (8.4-10.2); Carbon Dioxide 25 mmol/L (22-30); Chloride 105 mmol/L (98-107); Estimated Creatinine Clearance 42 ml/min; Glucose 239 mg/dl (70-99); Potassium 5.1 mmol/L (3.5-5.1); Sodium 139 mmol/L (135-145); Total Protein 6.3 g/dl (6.3-8.2); eGFR 42.30
[2025-02-26 11:38] LABS: Glucose - Point of Care 261 mg/dl (70-99)
--- NOTE | 2025-02-26 11:48 | W.DCSUMMARY ---
Discharge Summary
Discharge Data
Date of Admission: 02/25/25
Date of Discharge: 02/26/25
-
Pending Results: No
Hospital Course
74yo M with PMHx of CKD 3b, kidney transplant, HFpEF, DM, Hx of GIB, orthostatic hypotension 2/2 autonomic neuropathy YASH came after syncope. He is getting frequent syncope with LOC for the past 6 months. Found orthostatic hypotension in ED. Also
c/o severe mid back pain started after the fall and SHERRY
Orthostatic BP and symptoms improved with using compression stocks and abdominal binder when ambulating - cont same. for hypertension - nighttime hydralazine and avoid getting up from the bed until AM. Patient aware and agreeable. MRI back showed no
acute fracture. Symptom complex concerning for parkinsonism - referred to outpatient neurology. Ucx grew Klebsiella pneumonia, sensitive to 3rd gen cephalosporin. Reasonable for 10 days treatment. Also prednisone increased to 10mg with concern that
iatrogenic adrenal insufficiency can play role. Outpatient Endo advised. Medically stable for d/c home
I have spent at least 38min reviewing chart, test results, communication with consultants and providing direct patient care
Patient was managed for:
#Syncope 2/2 Orthostatic hypotension
#L hand tremor at rest
#Severe thoracic spine pain
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
#SHERRY on CKD stage 3b
#Episodes of hypertension with Hx of essential HTN and orthostatic hypotension
#Leukocytosis
#Hx of DVT
#DM type 2 with nephropathy
#PAD
#HLD
#subclinical hypothyroidism
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
#Chronic anemia
Discharge Plan
-
Patient Disposition: Home (Routine Discharge)
Discharge Diagnosis/Procedures: UTI
Diet: Diabetic, Carb Controlled
Activity: As tolerated
Driving Restrictions: No driving
Blood Work: BMP with family doctor in 3 days
Activity Restrictions/Additional Instructions:
Abdominal binder on ambulation with compression stockings
Referrals:
Ben Suarez DO [Family Provider, Internal Medicine] - in two to three days
Referral Note: repeat BMP and schedule repeat thyroid tests in 2-3 weeks since new Synthroid
Julio Pierre MD [Active, Neurology] - in four to six weeks
Referral Note: Concern for Parkinsons
Leola Villasenor MD [Active, Nephrology] - in two to three weeks
Additional Discharge Medication Instructions: Midodrine 5mg during activity in the morning and BP <110
Prescriptions:
New
prednisone 10 mg Tablet
10 mg PO DAILY Qty: 30 0RF
midodrine 5 mg Tablet
5 mg PO TIDPRN PRN (Reason: on activity and low SBP <110) Qty: 90 0RF
hydralazine 25 mg Tablet
25 mg PO HSPRN PRN (Reason: SBP>180 DBP>105) Qty: 30 0RF
levothyroxine 25 mcg Tablet
25 mcg PO DAILY @ 0600 Qty: 30 0RF
pantoprazole 40 mg Tablet,Delayed Release (Dr/Ec)
40 mg PO DAILY Qty: 30 0RF
metoprolol succinate 25 mg Tablet Extended Release 24 Hr
12.5 mg PO DAILY Qty: 15 0RF
cefdinir 300 mg Capsule
300 mg PO Q12 Qty: 20 0RF
Continued
mycophenolate sodium 180 mg tablet,delayed release (DR/EC)
720 mg PO BID
atorvastatin [Lipitor] 40 mg Tablet
40 mg PO DAILY
aspirin 81 mg Tablet,Delayed Release (Dr/Ec)
81 mg PO DAILY
omega-3 acid ethyl esters [Lovaza] 1 gram Capsule
1 cap PO BID
magnesium oxide 400 mg magnesium Tablet
400 mg PO BID
Patient Comments:
12/28 MACHINE BOOKKEEPER: PER PATIENT, HE TAKES IT BID, RX FOR DAILY
insulin lispro [Humalog KwikPen Insulin] 100 UNIT/ML insulin pen
5 unit SC AC
Rx Instructions:
plus sliding scale
melatonin 3 mg Tablet
3 mg PO HS PRN (Reason: sleep)
Eliquis 5 mg Tablet
5 mg PO BID
Vitamin D3
1,250 mcg PO DAILY
insulin glargine [Lantus Solostar U-100 Insulin] 100 unit/mL (3 mL) insulin pen
35 unit SC HS
tacrolimus 1 mg capsule
1 mg PO BID
Discontinued
prednisone 5 mg Tablet
5 mg PO DAILY
hydralazine 10 mg Tablet
10 mg PO TID
Patient Comments:
12/28 MACHINE BOOKKEEPER: Per patient, conflicting dose from PCP vs. specialist (25 mg TID vs. 10 mg TID) - however, patient is taking 10 mg TID
Rx Instructions:
hold for SBP >110
metoprolol succinate 25 mg tablet extended release 24 hr
25 mg PO DAILY
Rx Instructions:
in AM
midodrine 5 mg Tablet
5 mg PO TIDPRN PRN (Reason: low SBP <110) Qty: 0 0RF
Patient Comments:
12/28 MACHINE BOOKKEEPER - Patient unsure if he's taking medication; per medication dispense history, patient last had it filled 12/24
Discharge Orders:
Discharge Patient (As Directed); Ordered 02/26/25
Ordered By: Randy Li
Discharge Date and Time
Print Language: NICARAGUAN
--- NOTE | 2025-02-26 12:09 | W.PN.NEPH.PH ---
Today's Communication / Plan
-
dc
Assessment/Plan
-
Impression:
SHERRY
Right lower quadrant living related kidney transplant October 2022
History of enterococcal bacteremia and UTI
CKD IIIb-baseline cr 1.3-1.5
History of diabetic nephropathy
b/l LE Wounds
ASCVD / PAD
Benign Hypertension
Anxiety
syncope from severe orthostatic hypotension
DM2-with microvascular complications
Anxiety, Insomnia
BPH
1.2 cm left adrenal adenoma
Plan:
change to po abx
FK level 5
continue tranplant meds
for dc
-
-
Date of Service: February 26, 2025
CC / HPI / ROS
-
Chief Complaint:
SHERRY with h/o KTP
History of Present Illness:
cr better at 1.7
Bps stable but orhtostaitc still
no fever, WBC down at 13.7k
GNB in Urine, on abx
met acidosis bicarb better
Review of Systems:
no cp ro sob
dizzy upon standing
Labs
-
Labs:
WBC 11.1 10^3/uL (4.8-10.8) H 02/26/25 08:23
RBC 3.63 10^6/uL (4.70-6.10) L 02/26/25 08:23
Hgb 9.3 g/dL (13.0-18.0) L 02/26/25 08:23
Hct 30.2 % (39.0-52.0) L 02/26/25 08:23
Plt Count 265 10^3/uL (130-400) 02/26/25 08:23
Sodium 139 mmol/L (135-145) 02/26/25 08:23
Potassium 5.1 mmol/L (3.5-5.1) 02/26/25 08:23
Chloride 105 mmol/L (98-107) 02/26/25 08:23
Carbon Dioxide 25 mmol/L (22-30) 02/26/25 08:23
BUN 37 mg/dl (9-20) H 02/26/25 08:23
Creatinine 1.7 mg/dL (0.7-1.3) H 02/26/25 08:23
eGFR 42.30 02/26/25 08:23
Glucose 239 mg/dl (70-99) H 02/26/25 08:23
Calcium 8.8 mg/dl (8.4-10.2) 02/26/25 08:23
Albumin 3.6 g/dl (3.5-5.0) 02/26/25 08:23
Physical Exam
-
Vital Signs:
Vital Signs
Temp Pulse Resp BP Pulse Ox
97.7 F 68 16 161/73 97
02/26/25 07:30 02/26/25 07:30 02/26/25 07:30 02/26/25 08:41 02/26/25 07:30
Cardiovascular:: Regular rate and rhythm
Respiratory:: Bilateral: CTA
Lung Excursion:: Normal
Abdomen:: Nontender and Soft
Bowel Sounds:: Normal
Extremity Edema:: None: Bilateral:
[2025-02-26] MEDS: NOVOLOG FLEXPEN-LOW RESISTANCE 3 UNITS SC (12:27)
--- NOTE | 2025-02-26 12:27 | CM ---
Addendum entered by Audrey Mcghee 02/26/25 12:54:
Home today with [facility]
Original Note:
Home no needs, IMM given.
Plan; Home no needs.
[2025-02-26 13:17] VITALS: BP 169/74
--- NOTE | 2025-02-26 13:41 | PN.CDI ---
Addendum entered and electronically signed by Randy Li MD 02/26/25 14:54:
not clear query question.
Original Note:
CDI
- -
CDI:
Physician Documentation Request
Admit Date: 02/25/25 08:29
Dear Doctor Guillermo,
Please review the following and provide your response in the progress notes.
Current documentation includes a diagnosis of hypotension.
Clinical Indicators:
H+P, 02/23
#Head CT-no acute changes. Findings compatible with diffuse atrophy
# Memory impairment poss vasc dementia
#Autonomic Insufficiency
#Narcolepsy
PN, 02/26
A/P:
#Syncope 2/2 Orthostatic hypotension
#...L hand tremor at rest
#...Concern for Parkinson-like disorder
#With orthostasis and absence of stiffness - ...
#...positive orthostatics
#...Advised Abdominal binder on ambulation, since compression stockings
#...also seems to be not sufficient
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
#SHERRY on CKD stage 3b
#...Tacrolimus 6.9 as of 02/12/25 - sent repeat - 5.0
#Episodes of hypertension with Hx of essential HTN and orthostatic hypotension
#...With syncope - might need to allow permissive hypertension
#...Hydralazine only at nighttime when going to bed, avoid walking after that till
#DM type 2 with nephropathy
#subclinical hypothyroidism
#...with Hx of orthostatic hypotension reasonable to start Synthroid 25mcg
#...and recheck TFT in 2-3 weeks
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
#...increase Prednisone with orthostasis
Please clarify which of the following is the most likely etiology of the above symptoms and treatment rendered:
Multifactorial due to Neurogenic Orthostatic Hypotension(please provide underlying etiology/ies, ie. adrenal insufficiency, hypothyroidism, diabetic neuropathy)
Hypotension - indicate type/etiology, such as idiopathic, neurogenic or orthostatic, post-procedural, postoperative, due to hemodialysis, chronic, drug induced (indicate drug), etc.
Orthostatic Hypotension, only - unknown type/etiology
Adrenal insufficiency only
Other(please specify)
Use of terms such as suspected, likely, concern for, or probable (associated with a specific diagnosis that is being evaluated, monitored, or treated as if it exists) are acceptable and can be coded in the inpatient setting, when documented at the
time of discharge.
Thank you,
Sharla Figueroa RN BSN CCDS
CDI Specialist
Please contact via tiger text
Please use your independent medical judgment in providing your response.
--- NOTE | 2025-02-27 12:32 | W.PN.UPDATE ---
Update Note
Progress Note Update
Received positive Bcx after patient d/c - GNB possibly same as klebsiella in the urine. Treatment will be the same - 2 weeks of Abx. Called patient, he is feeling well, without fever or new symptoms, informed on Cx result and will call back if final
Cx with different organism. Advised to repeat Bcx with PCP (patient has appt on 03/01/25) and come to ED if any fevers or worsening status. Patient confirmed that he has Cefdinir and takes it as prescribed.
== END 2025-02-26 15:15 | disposition home health service (06) | DRG 644 ==
LOC: 4 WEST ACU 08:29
PROVIDERS: Emergency Medicine; Nurse Practitioner Family; Physician Assistant; ADMITTING PHYSICIAN Hospitalist; ATTENDING PHYSICIAN Internal Medicine; CONSULT PHYSICIAN Specialist; EMERGENCY PHYSICIAN Emergency Medicine; FAMILY PHYSICIAN Internal Medicine
DX: E27.3 Drug-induced adrenocortical insufficiency (principal); E87.1 Hypo-osmolality and hyponatremia; N39.0 Urinary tract infection, site not specified; T86.19 Other complication of kidney transplant; N17.9 Acute kidney failure, unspecified; I13.0 Hypertensive heart and chronic kidney disease with heart failure and stage 1 through stage 4 chronic kidney disease, or unspecified chronic kidney disease; I50.32 Chronic diastolic (congestive) heart failure; Z94.0 Kidney transplant status; I95.1 Orthostatic hypotension; R25.1 Tremor, unspecified; M54.6 Pain in thoracic spine; E11.22 Type 2 diabetes mellitus with diabetic chronic kidney disease; E11.43 Type 2 diabetes mellitus with diabetic autonomic (poly)neuropathy; N18.32 Chronic kidney disease, stage 3b; Z86.718 Personal history of other venous thrombosis and embolism; E03.8 Other specified hypothyroidism; D64.9 Anemia, unspecified; Z79.52 Long term (current) use of systemic steroids; T38.0X5A Adverse effect of glucocorticoids and synthetic analogues, initial encounter; B96.1 Klebsiella pneumoniae [K. pneumoniae] as the cause of diseases classified elsewhere; Z79.4 Long term (current) use of insulin; Z79.01 Long term (current) use of anticoagulants; E27.8 Other specified disorders of adrenal gland; I25.2 Old myocardial infarction; G47.33 Obstructive sleep apnea (adult) (pediatric); G47.419 Narcolepsy without cataplexy; N40.0 Benign prostatic hyperplasia without lower urinary tract symptoms; Z87.891 Personal history of nicotine dependence; I25.10 Atherosclerotic heart disease of native coronary artery without angina pectoris; F32.A Depression, unspecified; E78.00 Pure hypercholesterolemia, unspecified; Z79.82 Long term (current) use of aspirin; D35.02 Benign neoplasm of left adrenal gland; E86.0 Dehydration; F41.9 Anxiety disorder, unspecified; F90.9 Attention-deficit hyperactivity disorder, unspecified type; G47.00 Insomnia, unspecified; H35.30 Unspecified macular degeneration; Z79.899 Other long term (current) drug therapy
CPT/HCPCS: 70450; 72125; 72128; 72146; 80048; 80053; 80197; 81003; 81015; 82962; 83036; 84439; 84443; 84484; 85025; 85027; 87040; 87077; 87086; 87154; 87186; 87205; 93005; 93306; 96360; 97162; 97166; 97530; 99285; J7030

== ENCOUNTER → 2025-03-02 17:26 | Outpatient (REF) | payer MEDICARE, OTHER, SELFPAY ==
[2025-03-02 18:03] LABS: Blood Urea Nitrogen 42 mg/dl (9-20); Calcium 8.8 mg/dl (8.4-10.2); Carbon Dioxide 18 mmol/L (22-30); Chloride 109 mmol/L (98-107); Glucose 303 mg/dl (70-99); Potassium 5.6 mmol/L (3.5-5.1); Sodium 135 mmol/L (135-145); eGFR 39.50
== END ==
LOC: OLAB 17:26
PROVIDERS: ATTENDING PHYSICIAN Internal Medicine
DX: I10 Essential (primary) hypertension (principal); E11.8 Type 2 diabetes mellitus with unspecified complications
CPT/HCPCS: 36415; 80048

== ENCOUNTER 2025-03-24 02:13 | Inpatient (IN) | payer MEDICARE, OTHER, SELFPAY ==
[2025-03-23] VITALS (7 sets, daily range): BP systolic 118–189; BP diastolic 58–71; PULSE 63–70; BMI 29.4
[2025-03-23 18:38] LABS: Hematocrit 33.0 % (39.0-52.0); Hemoglobin 10.4 g/dL (13.0-18.0); Mean Corp Hgb Conc. 31.5 g/dL (33.0-37.0); Mean Corpuscular Volume 84.6 fL (80.0-94.0); Nucleated Red Blood Cells % 0 % (-); Platelet Count 154 10^3/uL (130-400); Red Cell Dist. Width 16.8 % (11.5-14.5)
[2025-03-23 19:00] LABS: ALT (SGPT) 19 U/L (0-50); AST (SGOT) 17 U/L (17-59); Albumin 3.9 g/dl (3.5-5.0); Alkaline Phosphatase 97 U/L (38-126); Blood Urea Nitrogen 70 mg/dl (9-20); Calcium 8.9 mg/dl (8.4-10.2); Carbon Dioxide 19 mmol/L (22-30); Chloride 105 mmol/L (98-107); Glucose 105 mg/dl (70-99); Potassium 5.1 mmol/L (3.5-5.1); Sodium 134 mmol/L (135-145); Total Protein 6.8 g/dl (6.3-8.2); eGFR 26.63
--- NOTE | 2025-03-23 23:17 | ED.GENMED ---
History of Present Illness
General
Chief Complaint: Fainting/Passed Out
Source: patient
Exam Limitations: none
Time Seen by Provider: 03/23/25 23:13
Nursing documentation reviewed up to this point in time: agreed with
History of Present Illness
History of Present Illness:
74-year-old male with a past medical history of hypertension, hyperlipidemia, who presents to check hypertension, heart failure, chronic kidney disease stage III status post kidney transplant, autonomic neuropathy, presents to the ER today with
concerns of dizziness, and weakness for the past few days. Patient does admit that this has been going on for the past few months and is a chronic issue and his nurse wanted him to be evaluated. Patient reports that he felt well today and had no
syncopal episodes. He did have around 3 syncopal episodes 4 days ago. He did not fall or hit his head. He also notes intermittent blurry vision. He denies chest palpitations he denies nausea or vomiting. Patient reports that less than he felt
this week, he had a kidney infection. He denies any fevers. He denies any pelvic pain, burning with urination, hematuria. He denies any flank pain. He was admitted on February 26, 2025 for something similar in his symptoms were attributed to
orthostatic hypotension and there was concern for potential Parkinson's, they wanted him to see a neurologist but patient reports that he has not yet seen neurology. He notes intermittent headaches as well but this is all been ongoing for multiple
months. He denies any rectal bleeding, dark tarry stools.
Past History
Past History
ED Past Medical History: CVA, HTN, Hypercholesterolemia, IDDM, Renal failure (Dialysis and saturday, Right arm fistula), Psychiatric ( anxiety, depression) and Other (Diabetic neuropathy, meningitis,UTI, macular degeneration, diabetic
nephropathy, Narcolepsy, )
ED Past Surgical History: Appendectomy and Other (Right AV fistula. Renal transplant October 2022)
Social History
Tobacco: Former smoker
Alcohol: None
Drug: None
Personal:
Living: with family
Employment: Employed
Family History
Family History: Diabetes
Review of Systems
Review of Systems
All Other Systems: ROS reviewed and negative except as documented in HPI and ROS
Phy Exam
Physical Exam
Physical Exam:
General: Patient is well appearing and in no acute distress; non-toxic, positive orthostatic vital signs
Skin: Warm and dry, no rashes or lesions
Head: Normocephalic, atraumatic
Eyes: Sclera non-icteric. EOMs intact.
Cardiac: Regular rate and rhythm, no murmurs
Peripheral Vascular: No lower extremity swelling or edema
Pulm: Normal respiratory effort,, no wheezes, rales, rhonchi
Abdomen: No abdominal tenderness to palpation
Neuro: CN II-XII intact, no focal neurologic deficits. Normal finger-nose, [id number] testing. Normal gait.
Psychiatric: Appropriate mood and affect.
Course
Orders/Labs/Results
Orders:
Orders
03/23/25 18:16
Electrocardiogram (*1) Urgent
Reason for Study: Syncope
EKG- Treatment ONCE
03/23/25 18:19
CT Head W/o Iv Contrast Urgent
Comment:
Reason For Exam: woozy in head and near syncope
03/23/25 18:27
Complete Blood Count/With Diff Urgent
Comprehensive Metabolic Panel Urgent
03/23/25 23:16
Orthostatic VS- Treatment ONCE
03/23/25 23:44
0.9% Sodium Chloride 250 ml [Nss] 250 ml IV BOLUS
03/23/25 23:58
Urinalysis Reflex To Culture Urgent
Date Specimen was Collected: 03/23/25
Time Specimen was Collected: 23:56
Urine Microscopic Reflex Cult Urgent
Urine Culture Urgent
OWEN Source: U
Specimen Description:
Date Specimen was Collected: 03/23/25
Time Specimen was Collected: 23:56
03/24/25 01:26
CefTRIAXone [Rocephin] 2,000 mg IV NOW STA
03/24/25 01:40
Sterile Water [Sterile Water For Injection] 20 ml .ROUTE .STK-MED
03/24/25 02:03
Admit/Transfer Patient As Directed
Co-Sign Provider:
Level of Care: Inpatient admission
Assign to:: Telemetry
Physician / Group: Brad
Diagnosis: UTI
Reason for Telemetry: Syncope
Date to Stop Telemetry: 03/26/25
Time to Stop Telemetry: 11:00
Reason for Hospitalization: UTI, SHERRY
Expected length of stay greater than two midnights?: Yes
ELOS- Estimated Length of Stay in days: 2
I certify the patient meets the requirements for IP care: Yes
PRN Pain Medication Management As Directed
May give lesser potent ordered pain med per pt: Yes
preference::
Protocol:: Medication orders for pain may be administered in a
manner that supports deferring to patient preference
when the pt is:
- Requesting an ordered lesser potent pain medication.
Least to most potent pain medications are defined
as: acetaminophen < NSAID < tramadol < opioids
(morphine, oxycodone, hydromorphone).
- Requesting a lesser dose of the same medication IF
ORDERED.
- Requesting a less intrusive route of administration
if both routes are prescribed by the provider (PO <
IV).
03/24/25 02:05
Code Status As Directed
Resuscitation Status: Full Code
03/24/25 03:03
0.9% Sodium Chloride 1000 ml [Nss] 1,000 ml IV 100 mls/hr
Acetaminophen [Tylenol] 650 mg PO Q4HPRN PRN
Bisacodyl [Dulcolax] 10 mg RECTAL [id number] PRN
Docusate W/Senna [Senokot-S] 1 tablet PO BIDPRN PRN
HydrALAZINE [Apresoline] 25 mg PO HSPRN PRN SBP>180 DBP>105
Melatonin 3 mg PO HS PRN sleep
Midodrine [ProAmatine] 5 mg PO TIDPRN PRN on activity and low SBP <110
Ondansetron Injectable [Zofran] 4 mg IV Q6HPRN PRN
Polyethylene Glycol Powder [Miralax] 17 grams PO DAILYPRN PRN
03/24/25 03:03
Consult Notification Routine
Specialty to Notify: Nephrology
Date consulting provider notified: 03/24/25
Time consulting provider notified: 07:35
Notified:: Provider
Comment: tt
NEPHROLOGY CONSULT Routine
Consulting Provider: Leola Villasenor
Was physician already notified: No
Reason for consult: SHERRY, Cr 2.5, bl 1.3-1.8, Kidney Tx
VTE Contraindication Routine
VTE Mechanical Device Contraindication: Medical Contraindication
Pharmocologic Contraindication: Medical Contraindication
Abdominal Binder As Directed
Activity As Directed
Activity Level: With Assistance
Bedside Glucose Monitoring As Directed
Frequency: AC&HS
Intake/ Output As Directed
Frequency: Per unit guidelines
Knee High Compression Therapy [Compression Therapy] As Directed
Location/extremity:: Left LE thigh high
Right LE thigh high
Type of compression therapy:: Medigrip/Tubigrip (latex)
Orthostatic Vital Signs As Directed
Orthostatic VS Frequency: Daily
Vital Signs As Directed
Frequency: Per unit guidelines
Renal Transplant US [US Renal Transplant] Urgent
Comment:
Reason For Exam: SHERRY
03/24/25 Breakfast
1800 calorie (15 carb) Diabetic
At Your Request: Full Participation
Levothyroxine [Synthroid] 25 mcg PO DAILY @ 0600
03/24/25 06:25
Basic Metabolic Panel IN AM
Complete Blood Count/No Diff IN AM
03/24/25 07:30
Insulin Aspart Pen [Novolog Flexpen] 5 units SC AC
03/24/25 08:00
Apixaban [Eliquis] 5 mg PO BID
Aspirin Low Dose EC [Aspir Low (Enteric Coated)] 81 mg PO DAILY
Atorvastatin [Lipitor] 40 mg PO DAILY
Metoprolol Xl [Toprol Xl] 12.5 mg PO DAILY
Mycophenolic Acid Dr [Myfortic Delayed Rel.] 720 mg PO BID
Prednisone [Deltasone] 10 mg PO DAILY
Tacrolimus [Prograf] 1 mg PO BID
03/25/25 02:00
CefTRIAXone [Rocephin] 1,000 mg IV Q24H
03/26/25 11:00
DC Protocol for Telemetry ONCE
Abnormal Lab Results
03/23/25 03/23/25
18:27 23:58
WBC 11.5 H 10^3/uL
(4.8-10.8)
RBC 3.90 L 10^6/uL
(4.70-6.10)
Hgb 10.4 L g/dL
(13.0-18.0)
Hct 33.0 L %
(39.0-52.0)
MCH 26.7 L pg
(27.0-31.0)
MCHC 31.5 L g/dL
(33.0-37.0)
RDW 16.8 H %
(11.5-14.5)
MPV 11.2 H fL
(7.4-10.4)
Abs Immat Gran (auto) 0.1 H 10^3/uL
(0-0.05)
Absolute Neuts (auto) 9.1 H 10^3/uL
(1.4-6.5)
Absolute Lymphs (auto) 1.1 L 10^3/uL
(1.2-3.4)
Absolute Monos (auto) 1.0 H 10^3/uL
(0.1-0.6)
Neutrophils % 79.3 H %
(42.2-75.2)
Lymphocytes % 9.9 L %
(20.5-51.1)
Sodium 134 L mmol/L
(135-145)
Carbon Dioxide 19 L mmol/L
(22-30)
BUN 70 H mg/dl
(9-20)
Creatinine 2.5 H mg/dL
(0.7-1.3)
Glucose 105 H mg/dl
(70-99)
Ur Occult Blood Reflex 4+ A
(Negative)
Leukocyte Esterase Rfl 3+ A
(Negative)
Urine RBC 60-70 A /HPF
(0-2)
Urine WBC (Reflex) >100 A /HPF
(0-5)
Urine Bacteria (Reflex) Many A
(Negative)
Urine Albumin (Reflex) 2+ A
(Neg - Trace)
03/23/25 18:27
03/23/25 18:27
Vital Signs
Initial and Last Documented VS:
Initial Vital Signs
Temp Pulse Resp BP Pulse Ox
97.7 F 65 16 140/58 97
03/23/25 18:17 03/23/25 18:17 03/23/25 18:17 03/23/25 18:17 03/23/25 18:17
Last Documented Vital Signs
Temp Pulse Resp BP Pulse Ox
97.8 F 66 18 175/79 97
03/24/25 08:27 03/24/25 09:00 03/24/25 08:27 03/24/25 09:00 03/24/25 08:27
MDM/Problems Addressed
Differential Diagnosis Includes:
Differentials include orthostatic hypotension, benign paroxysmal positional vertigo, subdural hematoma, epidural hematoma, urinary tract infection, Parkinson's disease
MDM/Problems Addressed:
74-year-old male with a past medical history of hypertension, hyperlipidemia, who presents to check hypertension, heart failure, chronic kidney disease stage III status post kidney transplant, autonomic neuropathy, presents to the ER today with
concerns of dizziness, and weakness for the past few days. Patient does admit that this has been going on for the past few months and is a chronic issue and his nurse wanted him to be evaluated in case he has a UTI.
Physical exam he is well-appearing in no acute distress. He is a nonfocal neurologic exam. He does have positive orthostatic vitals. But he has a long history of this and takes midodrine as needed. When I had patient stand and ambulate around the
room, he felt dizzy and did not feel stable on his feet. Patient lives at home with his . He is a clear fall risk.
Labs reviewed, SHERRY noted. BUN 70 however patient denies any signs or symptoms related to GI bleeding. Suspect hypovolemia, patient given small fluid bolus in the setting of his hx of heart failure. Patient has no dysuria, urinary frequency but
patient is concerned about possible UTI as he has had increasing weakness. Urinalysis concerning for infection, will give dose of Rocephin. In light of persistent uncontrolled orthostasis, persistent syncopal episodes, fall risk, SHERRY in the setting
of possible UTI, patient will require admission for further care. Case discussed with ED attending
Chronic conditions affecting care:
Chronic and disease, hypertension, orthostatic hypotension, heart failure
*Pulse Oximetry
SaO2: 99
Oxygen Mode of Delivery: Room air
Patient hypoxic: no
*Critical Care Note
Total Time (30-74mins, 75-104mins- exclusive of procedures): Not Applicable
Data Reviewed
Review of Other/Old Records Reveals: Records (Reviewed discharge summary from 02/26/2025 patient seen for generalized weakness, reviewed discharge summary from 01/03/2025 patient seen for acute kidney injury), Testing (Reviewed previous urine culture
showing Klebsiella pneumonia) and Discharge Summary
Source: patient and records
ED Attending Note
-
Portions of this chart may have been created with voice recognition software.� Occasional wrong word or��sound alike� substitutions may have occurred due to the inherent limitations of voice recognition software.
Discharge Plan
Departure
Patient Disposition: Admit
Date of Disposition: 03/24/25
Time of Disposition: 01:26
Admit to: Med/Surg
Presentation/result/management discussed w/ accepting MD/DO: Hospitalist
Patient with high blood pressure during this ER visit?: Yes
Condition: Fair
Discharge Problem:
Dizziness, Acute kidney injury superimposed on CKD, Pre-syncope
Interventions
Interventions:
*Risk Screen - Suicide Last Done: 03/24/25 03:53
*General Assessment Last Done: 03/23/25 21:58
*Neglect/Abuse Screening Last Done: 03/23/25 18:17
*ED- Fall Risk Assessment Last Done: 03/23/25 21:58
*ED COVID-19 Vaccine History Last Done: 03/23/25 21:58
*Nursing Disposition Last Done: 03/24/25 02:59
ED- Cardiac Assessment Last Done: 03/23/25 21:59
ED- Neurological Assessment Last Done: 03/23/25 21:59
Discharge Date and Time
Discharge Date/Time: 03/24/25 03:00
[2025-03-24] VITALS (13 sets, daily range): BP systolic 105–193; BP diastolic 55–92; PULSE 62–75; BMI 26.0
[2025-03-24] MEDS: NSS 250 IV (00:07)
[2025-03-24 00:10] LABS: Urine Character Slightly Cloudy (Clear)
[2025-03-24 00:58] LABS: Urine White Cell >100 /HPF (0-5)
[2025-03-24 00:59] LABS: Urine Red Blood Cell 60-70 /HPF (0-2)
--- NOTE | 2025-03-24 01:35 | HPS.HSE ---
Family Physician
-
Family Physician: Ben Suarez
Chief Complaint
-
No weakness, presyncope
History of Present Illness
This is a 74-year-old with past medical history significant for end-stage renal disease status post kidney transplant, insulin-dependent diabetes, hypertension, atrial fibrillation on anticoagulation, history of orthostatic hypotension, recurrent
urinary tract infections, frequent presyncopal and falls likely secondary to orthostatic hypotension presents to the emergency department with weakness and falls/passing out.
Patient was last admitted in early February and was found to have a urinary tract infection at that time as well as orthostatic symptoms. He was placed on abdominal binders compression devices. Medications were adjusted and he was treated for
Klebsiella UTI with third-generation cephalosporin. He was ultimately discharged with additional 10 days of cefdinir. He was found to have Pseudomonas bacteremia in the blood culture.
Patient reported that at least 2 weeks after discharge from the hospital and until completion of his antibiotics he was feeling well. However since then he said he started to have more weakness decreased p.o. intake fatigue and somnolence. He also
reported that he has had multiple falls/syncopal events since his discharge. He recalls 2 with the last episode being about 4 days ago. He said that this was discussed with the servicing nurse and physician who recommended that he come to the
emergency department a few days later.
Patient reported having a fever a few days ago. He denies any sick contacts. He reports that he has had no flank pain but reports chronic lower quadrant abdominal pain. He denies any dysuria. He denies any incontinence of the bladder.
Patient reported that he did follow-up with the his kidney and transplant specialist since his discharge. He is unable to tell me what is tacrolimus level was after discharge. He said there were no changes in his anti-rejection medications.
In the emergency department patient was afebrile, blood pressure was 180/60 with a pulse of 62 was satting 99% on room air. ECG shows sinus bradycardia rate of [address] or T wave changes. CT of the head shows no acute intracranial
process.
White count was 11.6, hemoglobin 10.1 platelet 154 ranging from prior.
Electrolytes were stable with a sodium of 134 potassium 5.1 bicarb of 19. BUN/creatinine were elevated at 70 and 2.5 with a baseline creatinine of around 1.3-1.8. UA is again positive with many bacteria leukocyte esterase and WBCs.
Medical History
Past Medical History
Past Medical History: Reports Other
Additional Past Medical History:
ESRD s/p Renal Transplant
DM-II with Neuropathy and Nephropathy
ASCVD (CAD, PAD)
Hypertension
Orthostatic Hypotension
Autonomic Insufficiency
Narcolepsy
Depression
YASH
HFpEF
Past Surgical History: Reports Other
Additional Past Surgical History:
R Popliteal Artery Angioplasty (08/18/24)
Right Transmetatarsal Amputation (08/21/24)
Bilateral Foot Wound Debridement (08/21/24)
Renal Transplant
RUE AVF
Appendectomy
Social History
Tobacco: Former Smoker (Quit smoking 15 years ago. Approx 40 pack years total use.)
Alcohol: None
Drug: None
Personal:
Living: With Family
Employment: Retired
Family History
Family History: Other (Father: Brain Tumor Mother: PUD Sister: Cancer (unknown type))
Allergies / Home Medications
Allergies reflects when Allergies were last updated in [facility].
Home Medications with original date entered in [facility]
Allergy/Medication List:
Allergies
Allergy/AdvReac Type Severity Reaction Status Date / Time
No Known Allergies Allergy Verified 09/25/24 21:15
Home Medications
prednisone 5 mg tablet 5 mg PO DAILY Anti-Inflammatory 07/23/23
aspirin 81 mg tablet,delayed release 81 mg PO DAILY Blood Clot Prevention/Tx 08/14/24
atorvastatin 40 mg tablet (Lipitor) 40 mg PO DAILY High Cholesterol 08/14/24
magnesium oxide 400 mg PO BID Supplement 08/14/24
mycophenolate sodium 180 mg tablet,delayed release 720 mg PO BID IMMUNOSUPPRESSANT 08/14/24
omega-3 acid ethyl esters 1 gram capsule (Lovaza) 1 cap PO BID Supplement 08/14/24
hydralazine 10 mg tablet 10 mg PO TID Blood Pressure 12/28/24
insulin lispro 100 unit/mL subcutaneous pen (Humalog KwikPen (U-100) Insulin) 5 unit SC AC Diabetes 12/28/24
metoprolol succinate 25 mg tablet,extended release 24 hr 25 mg PO DAILY Blood Pressure 12/28/24
midodrine 5 mg tablet 5 mg PO TIDPRN PRN low SBP <110 #0 tabs 01/03/25
Vitamin D3 1,250 mcg PO DAILY 02/23/25
apixaban 5 mg tablet (Eliquis) 5 mg PO BID 02/23/25
insulin glargine 100 unit/mL (3 mL) subcutaneous pen (Lantus Solostar U-100 Insulin) 35 unit SC HS diabetes 02/23/25
melatonin 3 mg tablet 3 mg PO HS PRN sleep 02/23/25
tacrolimus 1 mg capsule, immediate-release 1 mg PO BID 02/23/25
Review of Systems
-
History Source: Patient
Constitutional: Reports Fever and Fatigue; Denies Chills
EENT: Reports No Symptoms
Respiratory: Denies Cough or Trouble Breathing
Cardiac: Reports Syncope; Denies Chest Pain or Palpitations
Abdomen/GI: Denies Abdominal Pain, Nausea, Vomiting or Diarrhea
: Denies Dysuria, Frequency, Difficulty Voiding or Urgency
Musculoskeletal: Denies Joint Pain or Edema
Neurological: Reports Dizzy and Weakness
Endocrine: Denies Polyuria or Polydipsia
Psych: Denies Depression
Physical Exam
Vital Signs
Vital Signs
Temp Pulse Resp BP Pulse Ox
97.7 F 62 18 189/66 99
03/23/25 18:17 03/23/25 21:58 03/23/25 22:33 03/23/25 22:01 03/23/25 23:18
Physical Exam
General: Well Developed, Well Nourished, No Apparent Distress, Comfortable and Conversant
HEENT: NormoCephalic, Moist mucous membranes and Atraumatic
Respiratory: Clear and Non Labored Respirations
Cardiac: S1/S2 and Bradycardia
GI: Soft, Non Tender, Non Distended and Normal Bowel Sounds
Rectal: Deferred by Provider
Musculoskeletal: No Clubbing, No Cyanosis and No Edema
Skin: Warm and IV/Catheter Site
Neuro: Awake, AO x 3 and Nonfocal/grossly intact
Psych: Calm and Intact Judgment/Insight
Laboratory Results
-
03/23/25 18:27
03/23/25 18:27
Laboratory Results
Total Bilirubin 0.5 mg/dl (0.2-1.3) 03/23/25 18:27
AST 17 U/L (17-59) 03/23/25 18:27
ALT 19 U/L (0-50) 03/23/25 18:27
Alkaline Phosphatase 97 U/L (38-126) 03/23/25 18:27
Data Reviewed
-
CT Scan: Report Reviewed by me
Medical Tests (Nuc Med, Echo, EKG etc): Report Reviewed by me
Lab Data: Labs Reviewed by me
Old Records: Reviewed
Impression/Plan
-
IMPRESSION:
72-year-old with history of end-stage renal disease status post kidney transplant on antirejection medications, orthostatic hypotension with recurrent episodes of orthostatic dizziness/syncope, paroxysmal atrial fibrillation on Eliquis, GERD,
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 One-time fever at home but no recurrence. He has BPH with history of
UTIs. He denies any urinary symptoms but the spouse reports that when he feels this weak and dizzy he usually has a UTI. In the emergency department was found to be orthostatic, UA was positive, he has SHERRY with a creatinine of 2.5 from baseline of
around 1.3-1.8. Unclear when he last took his tacrolimus.
PLAN:
UTI -history of Klebsiella UTI with bacteremia. Completed prolonged course of antibiotics. Currently without urinary symptoms but reports lower quadrant abdominal discomfort and decreased p.o. intake.
-Admit to MedSurg
-Urine culture, blood culture
-Start ceftriaxone IV
-IV fluids
SHERRY -creatinine 2.5 BUN 17. Given decreased p.o. intake could possibly be prerenal azotemia however cannot rule out intrinsic renal injury from rejection or medications
-Renal transplant ultrasound
-Urine cultures
-Check tacrolimus level
- IV hydration
-Continue CellCept, Tac and prednisone at prehospital doses for now
-Nephrology consultation
A-fib -sinus bradycardia currently
-Continue Eliquis
-Continue metoprolol 12.5 mg daily
Orthostatic hypotension -patient is hypertensive supine but orthostatic and dizzy when ambulating, he only has syncopal episodes with ambulation or standing
-Hydralazine p.o. at bedtime
-Continue midodrine 3 times daily if orthostatic during the day or SBP less than 110
-Unlikely adrenal insufficiency, continue with prednisone 5mg po
Diabetes
-Continue Lantus 20 units at bedtime (on 35 units at home)
� Continue aspart 5 units AC
� Continue sliding scale insulin
DVT prophylaxis�on Eliquis
CODE STATUS�full code
[2025-03-24] MEDS: ROCEPHIN 2000 MG IV (01:51)
[2025-03-24] MEDS: NSS 1000 IV (04:01)
[2025-03-24] MEDS: SYNTHROID 25 MCG PO (05:26)
[2025-03-24 07:59] LABS: Glucose - Point of Care 223 mg/dl (70-99)
[2025-03-24 08:01] LABS: Hematocrit 31.9 % (39.0-52.0); Hemoglobin 10.1 g/dL (13.0-18.0); Mean Corp Hgb Conc. 31.7 g/dL (33.0-37.0); Mean Corpuscular Volume 84.8 fL (80.0-94.0); Platelet Count 143 10^3/uL (130-400); Red Cell Dist. Width 16.9 % (11.5-14.5)
--- NOTE | 2025-03-24 08:35 | VNURNOTE ---
Chart reviewed. Patient is current with [facility]. Will continue to follow hospital course and DC plans.
[2025-03-24] MEDS: NOVOLOG FLEXPEN 5 UNITS SC ×3 (09:00→17:20)
[2025-03-24] MEDS: TOPROL XL 12.5 MG PO (09:00)
[2025-03-24] MEDS: LIPITOR 40 MG PO (09:01)
[2025-03-24] MEDS: PROGRAF 1 MG PO ×2 (09:01→20:50)
[2025-03-24] MEDS: DELTASONE 10 MG PO (09:01)
[2025-03-24] MEDS: ELIQUIS 5 MG PO ×2 (09:01→20:50)
[2025-03-24] MEDS: ASPIR LOW (ENTERIC COATED) 81 MG PO (09:01)
[2025-03-24] MEDS: MYFORTIC DELAYED REL. 720 MG PO ×2 (09:02→20:50)
[2025-03-24 09:17] LABS: Blood Urea Nitrogen 67 mg/dl (9-20); Calcium 8.6 mg/dl (8.4-10.2); Carbon Dioxide 16 mmol/L (22-30); Chloride 106 mmol/L (98-107); Estimated Creatinine Clearance 31 ml/min; Glucose 257 mg/dl (70-99); Potassium 5.3 mmol/L (3.5-5.1); Sodium 135 mmol/L (135-145); eGFR 27.97
--- NOTE | 2025-03-24 09:33 | W.CON.NEPH ---
Consultation
-
Date/Time Consultation Requested: 03/24/2025 7:15 AM
Date/Time Consultation Performed: 03/24/2025 9:30 AM
Requesting Provider: Dr. Rodriguez
Performing Provider: Dr. Vidal
Reason for Consultation: Acute kidney injury/renal transplant
Medical History
-
Chief Complaint: Acute kidney injury/renal transplant
History of Present Illness:
74-year-old male history of ESRD from diabetic nephropathy s/p renal transplant (donor daughter) in 10/2022 at [place] on tacrolimus, Myfortic, prednisone. He has a history of atrial fibrillation and and is chronically anticoag with Eliquis .he has
labile BPs with significant orthostatic hypotension with autonomic dysfunction related to diabetes. He is on midodrine 3 times daily as well as hydralazine 3 times daily prn . The patient presents to the emergency room with weakness presyncope and
falls.The Patient was last admitted in early February and was found to have a urinary tract infection at that time as well as orthostatic symptoms. He was placed on abdominal binders compression devices. Medications were adjusted and he was treated
for Klebsiella UTI with third-generation cephalosporin. He was ultimately discharged with additional 10 days of cefdinir. He was found to have Pseudomonas bacteremia in the blood culture.
Patient reported that at least 2 weeks after discharge from the hospital and until completion of his antibiotics he was feeling well. However since then he said he started to have more weakness decreased p.o. intake fatigue and somnolence. He also
reported that he has had multiple falls/syncopal events since his discharge. He recalls 2 with the last episode being about 4 days ago. He said that this was discussed with the servicing nurse and physician who recommended that he come to the
emergency department a few days later.
Patient reported having a fever a few days ago. He denies any sick contacts. He reports that he has had no flank pain but reports chronic lower quadrant abdominal pain. He denies any dysuria. He denies any incontinence of the bladder.
Patient reported that he did follow-up with the his kidney and transplant specialist since his discharge. He is unable to tell me what is tacrolimus level was after discharge. He said there were no changes in his anti-rejection medications.
In the emergency department patient was afebrile, blood pressure was 180/60 with a pulse of 62 was satting 99% on room air. ECG shows sinus bradycardia rate of [address] or T wave changes. CT of the head shows no acute intracranial
process.
Past Medical History
1. Fromer ESRD due to diabetes. s/p LRTxp 10/2022 at [place]
2. Diabetes mellitus, type 2 with complications
3. Orthostasis.
4. Right AV fistula.
5. Autonomic insufficiency
6. ADHD.
7. Sleep apnea.
8. Hyperlipidemia.
9. BPH.
10. Elevated PSA.
11. Secondary hyperparathyroidism.
CKD with baseline creatinine of 1.2-1.5
Past Surgical History: Other (Appendectomy Laser treatment of both eyes Right upper extremity speech slow reaction Right upper extremity fistulogram Right upper extremity fistula revision, kidney transplant, TURP)
Social History
Tobacco: Non-Smoker
Alcohol: None
Personal:
Living: With Family
Family History
Family History: Not Pertinent
Allergies / Home Medications
Allergy/AdvReac Type Severity Reaction Status Date / Time
No Known Allergies Allergy Verified 03/23/25 18:18
�Medication �Instructions �Recorded �Confirmed �Type
aspirin 81 mg tablet,delayed 81 mg PO DAILY Blood Clot 08/14/24 02/23/25 History
release Prevention/Tx
atorvastatin 40 mg tablet (Lipitor) 40 mg PO DAILY High Cholesterol 08/14/24 02/23/25 History
magnesium oxide 400 mg PO BID Supplement 08/14/24 02/23/25 History
mycophenolate sodium 180 mg 720 mg PO BID IMMUNOSUPPRESSANT 08/14/24 02/23/25 History
tablet,delayed release
omega-3 acid ethyl esters 1 gram 1 cap PO BID Supplement 08/14/24 02/23/25 History
capsule (Lovaza)
insulin lispro 100 unit/mL 5 unit SC AC Diabetes 12/28/24 02/23/25 History
subcutaneous pen (Humalog KwikPen
(U-100) Insulin)
Vitamin D3 1,250 mcg PO DAILY Supplement 02/23/25 02/23/25 History
apixaban 5 mg tablet (Eliquis) 5 mg PO BID Blood Clot 02/23/25 02/23/25 History
Prevention/Tx
insulin glargine 100 unit/mL (3 35 unit SC HS diabetes 02/23/25 02/23/25 History
mL) subcutaneous pen (Lantus
Solostar U-100 Insulin)
melatonin 3 mg tablet 3 mg PO HS PRN sleep 02/23/25 02/23/25 History
tacrolimus 1 mg capsule, 1 mg PO BID Autoimmune Disorder 02/23/25 02/23/25 History
immediate-release
cefdinir 300 mg capsule 300 mg PO Q12 #20 caps 02/26/25 Rx
hydralazine 25 mg tablet 25 mg PO HSPRN PRN SBP>180 DBP>105 02/26/25 Rx
#30 tabs
levothyroxine 25 mcg tablet 25 mcg PO DAILY @ 0600 #30 tabs 02/26/25 Rx
metoprolol succinate 25 mg 12.5 mg (1/2 x 25 mg) PO DAILY #15 02/26/25 Rx
tablet,extended release 24 hr tabs
midodrine 5 mg tablet 5 mg PO TIDPRN PRN on activity and 02/26/25 Rx
low SBP <110 #90 tabs
pantoprazole 40 mg tablet,delayed 40 mg PO DAILY #30 tabs 02/26/25 Rx
release
prednisone 10 mg tablet 10 mg PO DAILY #30 tabs 02/26/25 Rx
Review of Systems
-
History Source: Patient
All other systems: Negative unless noted
Constitutional: Other (Weakness)
Abdomen/GI: Anorexia and Other (Lower quadrant abdominal pain)
Musculoskeletal: Other (Falls)
Neurological: Weakness and Other (Lethargy, orthostasis, syncope)
Physical Exam
Vital Signs
Vital Signs
Temp Pulse Resp BP Pulse Ox
97.8 F 66 18 175/79 97
03/24/25 08:27 03/24/25 09:00 03/24/25 08:27 03/24/25 09:00 03/24/25 08:27
Lab Results
03/24/25 06:25
03/24/25 06:25
WBC 10.5 10^3/uL (4.8-10.8) 03/24/25 06:25
RBC 3.76 10^6/uL (4.70-6.10) L 03/24/25 06:25
Hgb 10.1 g/dL (13.0-18.0) L 03/24/25 06:25
Hct 31.9 % (39.0-52.0) L 03/24/25 06:25
Plt Count 143 10^3/uL (130-400) 03/24/25 06:25
Sodium 135 mmol/L (135-145) 03/24/25 06:25
Potassium 5.3 mmol/L (3.5-5.1) H 03/24/25 06:25
Chloride 106 mmol/L (98-107) 03/24/25 06:25
Carbon Dioxide 16 mmol/L (22-30) L 03/24/25 06:25
BUN 67 mg/dl (9-20) H 03/24/25 06:25
Creatinine 2.4 mg/dL (0.7-1.3) H 03/24/25 06:25
eGFR 27.97 03/24/25 06:25
Glucose 257 mg/dl (70-99) H 03/24/25 06:25
Calcium 8.6 mg/dl (8.4-10.2) 03/24/25 06:25
Albumin 3.9 g/dl (3.5-5.0) 03/23/25 18:27
Physical Exam
General: AOx3, Nontoxic , NAD
HEENT: PERRL, EOMI, Anicteric, Conjunctivae Clear, Ear/Nose Intact, Hearing Normal, Oropharynx Clear/Moist, Dentition Intact, Facial Symmetry, Neck Supple, Neck: Trachea Midline, No JVD and No Thyromegaly, no Bruits
Respiratory: Clear to auscultation bilaterally with normal lung exersion
Cardiac: S1/S2 and Regular Rate/Rhythm
Breast: Deferred by me
Abdomen: Soft, Nontender, Nondistended, Normal Bowel Sounds and No Hepatosplenomegaly
Rectal: Deferred by Provider
Genito-urinary: No Costovertebral Tenderness
Extremities: No Clubbing, No Cyanosis and No Edema, right TMA
Skin: No Rash or open lesions
Neuro: Nonfocal/Grossly Intact, CN II-XII (Intact) and Strength (Musculoskeletal exam 5 out of 5 both upper and lower extremities)
Hematologic/Lymphatic: No Cervical Lymphadenopathy, No Submandibular Lymphadenopathy and No Supraclavicular Lymphadenopathy
Psych: Mood/afflect pleasant, Insight/judgement good and Appropriate
Vascular: plus 1 pedal and radial pulses, right AV fistula
Data Reviewed
-
CT Scan: Report Reviewed by me (Head CT report reviewed no acute intracranial abnormality)
Medical Tests (Nuc Med, Echo etc): Other (EKG report reviewed sinus bradycardia with sinus arrhythmia 57 bpm)
Labs: Labs Reviewed by me ([facility] CBC urinalysis)
Old Records: Reviewed (Old labs reviewed from date 03/02/2025 creatinine 1.8, nephrology consultation reviewed from date 02/23/2025 in EMR during prior hospitalization (SHERRY))
Assessment/Plan
-
Impression:
Presentation with syncope falls and weakness
SHERRY
Right lower quadrant living related kidney transplant October 2022
History of enterococcal bacteremia and UTI
Recent history of Klebsiella pneumonia bacteremia from early February 2025
CKD IIIb-baseline cr 1.9 (02/24/25)
History of diabetic nephropathy
b/l LE Wounds
ASCVD / PAD
Benign Hypertension
Anxiety
syncope from severe orthostatic hypotension
DM2-with microvascular complications
Anxiety, Insomnia
BPH
1.2 cm left adrenal adenoma
Autonomic neuropathy
Metabolic acidosis
Anemia
Plan:
SHERRY:
- Check tacrolimus trough level, need a true 10-hour trough level
- Accurate I's and O's
- Patient is baseline hemodynamically labile due to underlying autonomic neuropathy (maintain midodrine support with as needed hydralazine), MELVA kahn
- Blood cultures pending, empiric ceftriaxone provided by primary service
- Maintain current immunosuppression regimen which consist of mycophenolate tacrolimus, and low-dose prednisone
- Okay to continue current IV fluids
- Will add sodium bicarbonate for acute on chronic metabolic acidosis
[2025-03-24 12:14] LABS: Glucose - Point of Care 243 mg/dl (70-99)
--- NOTE | 2025-03-24 12:16 | CM ---
front of house manager reviewed patient's chart and met with patient and patient lives with spouse in a one story home, patient is independent with adl's and ambulates with a cane. Plan is to home with [facility] when stable.
PCP: Dr Ben Suarez
Pharmacy: [facility] in [facility].
Plan; Home with spouse and [facility] when stable.
[2025-03-24] MEDS: NOVOLOG FLEXPEN-MODERATE RESISTANCE 3 UNITS SC (14:13)
--- NOTE | 2025-03-24 14:37 | W.PN.UPDATE ---
Update Note
Progress Note Update
Nonbillable note
1. Recurrent urinary tract infection -patient have history of urinary tract infection with partial drug-resistant Klebsiella and Enterococcus faecalis in the past. Renal transplant ultrasound showed minimal resistive index and renal artery
suggestive of minimal renal dysfunction. Urine culture report pending. Maintain on Rocephin based on previous antibiotic susceptibility.
2. History of renal transplant for ESRD from diabetic nephropathy. SHERRY on CKDIIIB of transplanted kidney -baseline creatinine close to 1.8-1.9. Currently creatinine elevated to 2.5 range. Tacrolimus level pending. Renal transplant kidney
showing increased resistive index and renal artery suggestive of mild kidney dysfunction. Nephrology involved in care and help appreciated.
3. Uncontrolled hypertension -on regimen of Toprol-XL and hydralazine. Will add as needed hydralazine IV for systolic blood pressure greater 160
4. Hyperkalemia/metabolic acidosis -oral bicarb therapy and low potassium diet ordered. Nephro help appreciated.
--- NOTE | 2025-03-24 15:22 | VNURNOTE ---
PM-[facility] resumption of care referral placed in [facility].
[2025-03-24 16:32] LABS: Glucose - Point of Care 482 mg/dl (70-99)
[2025-03-24 17:11] LABS: Glucose 360 mg/dl (70-99)
[2025-03-24] MEDS: NOVOLOG FLEXPEN-MODERATE RESISTANCE 9 UNITS SC (17:20)
[2025-03-24] MEDS: SODIUM BICARBONATE 650 MG PO ×2 (17:21→20:49)
[2025-03-24 21:16] LABS: Glucose - Point of Care 376 mg/dl (70-99)
[2025-03-24] MEDS: LANTUS 0.2 UNITS SC (21:40)
[2025-03-24] MEDS: NOVOLOG FLEXPEN 9 UNITS SC (21:41)
[2025-03-24 23:47] LABS: Glucose - Point of Care 405 mg/dl (70-99)
[2025-03-25] VITALS (10 sets, daily range): BP systolic 96–167; BP diastolic 50–107; PULSE 58–73; O2SAT 97; BMI 25.5
[2025-03-25 00:56] LABS: Glucose 414 mg/dl (70-99)
[2025-03-25] MEDS: NOVOLOG FLEXPEN 10 UNITS SC ×3 (01:16→18:32)
[2025-03-25] MEDS: ROCEPHIN 1000 MG IV (01:25)
[2025-03-25] MEDS: STERILE WATER FOR INJECTION 10 ML IV (01:25)
--- NOTE | 2025-03-25 02:40 | PTCARENOTE ---
HS BS was 376. Contacted SCHOOL LUNCH MONITOR front facer who ordered a STAT dose of 9 units regular insulin. Pt rechecked 2hrs later as per SCHOOL LUNCH MONITOR and was 405 on glucometer. STAT glucose drawn and resulted @ 414. Again, SCHOOL LUNCH MONITOR contacted and pt was given 10 units regular insulin
as ordered. Pt will be checked again @ 0315hrs. Pt states he has felt no s/s of hyperglycemia. He did state he has excessive thirst and is urinating more than usual. Educated pt on s/s of hyperglycemia as well as reasons for elevated BS. No s/s of
distress assessed. Will continue to monitor.
[2025-03-25 03:23] LABS: Glucose - Point of Care 325 mg/dl (70-99)
[2025-03-25] MEDS: SYNTHROID 25 MCG PO (04:41)
[2025-03-25] MEDS: APRESOLINE 10 MG IV (04:48)
--- NOTE | 2025-03-25 05:46 | PTCARENOTE ---
F/U repeat BS 375. Discussed with SUBSTATION SUPERINTENDENT. No new orders provided. No s/s of distress assessed. Will continue to monitor.
[2025-03-25 07:00] LABS: Glucose - Point of Care 256 mg/dl (70-99)
[2025-03-25 08:21] LABS: Blood Urea Nitrogen 60 mg/dl (9-20); Calcium 9.1 mg/dl (8.4-10.2); Carbon Dioxide 19 mmol/L (22-30); Chloride 108 mmol/L (98-107); Estimated Creatinine Clearance 33 ml/min; Glucose 266 mg/dl (70-99); Potassium 4.9 mmol/L (3.5-5.1); Sodium 138 mmol/L (135-145); eGFR 31.05
[2025-03-25] MEDS: NOVOLOG FLEXPEN-MODERATE RESISTANCE 5 UNITS SC (09:01)
[2025-03-25] MEDS: NOVOLOG FLEXPEN 5 UNITS SC (09:02)
[2025-03-25] MEDS: TOPROL XL 12.5 MG PO (09:03)
[2025-03-25] MEDS: MYFORTIC DELAYED REL. 720 MG PO ×2 (09:03→20:11)
[2025-03-25] MEDS: PROGRAF 1 MG PO ×2 (09:03→20:10)
[2025-03-25] MEDS: LIPITOR 40 MG PO (09:03)
[2025-03-25] MEDS: SODIUM BICARBONATE 650 MG PO ×3 (09:03→22:23)
[2025-03-25] MEDS: ELIQUIS 5 MG PO ×2 (09:03→20:11)
[2025-03-25] MEDS: DELTASONE 10 MG PO (09:04)
[2025-03-25] MEDS: ASPIR LOW (ENTERIC COATED) 81 MG PO (09:04)
[2025-03-25 11:42] LABS: Glucose - Point of Care 242 mg/dl (70-99)
--- NOTE | 2025-03-25 11:58 | W.PN.HOSP.TC ---
Today's Communication/Plan
-
f/u urine cs report
maintain on rocephin
pt/ot evaluation
Assessment / Plan
Assessment / Plan
1. Recurrent urinary tract infection -patient have history of urinary tract infection with partial drug-resistant Klebsiella and Enterococcus faecalis in the past. Renal transplant ultrasound showed minimal resistive index and renal artery
suggestive of minimal renal dysfunction. Urine culture report pending. Maintain on Rocephin based on previous antibiotic susceptibility.
2. History of renal transplant for ESRD from diabetic nephropathy. SHERRY on CKDIIIB of transplanted kidney -baseline creatinine close to 1.8-1.9. Came in with admission creatinine of 2.5 which is trending down. Tacrolimus level 5.9 within normal
limit. Renal transplant kidney showing increased resistive index and renal artery suggestive of mild kidney dysfunction. Nephrology involved in care and help appreciated.
3. Uncontrolled hypertension -on regimen of Toprol-XL and hydralazine. Will add as needed hydralazine IV for systolic blood pressure greater 160
4. Hyperkalemia/metabolic acidosis -oral bicarb therapy and low potassium diet ordered. Nephro help appreciated.
5. History of autonomic dysfunction -patient with significant blood pressure swings and symptomatic at times. Unfortunately unable to control due to lability of blood. Discussed with nephrology and will continue current blood pressure regimen.
Full code
Total time spent ; 54 mins
Anticipated Discharge: 24 - 48 hours
Subjective/Interval History
-
Date of Service: March 25, 2025
Feeling subjectively better
Large blood pressure swings of which patient has h/o of
no other reported problems
Objective Data
-
Labs:
Laboratory Results
03/25/25 03/25/25
00:20 06:31
Sodium 138
Potassium 4.9
Chloride 108 H
Carbon Dioxide 19 L
BUN 60 H
Creatinine 2.2 H
Glucose 414 H 266 H
Calcium 9.1
Vital Signs:
Vital Signs
Temp Pulse Resp BP Pulse Ox
97.5 F 67 16 161/71 98
03/25/25 07:00 03/25/25 07:00 03/25/25 07:00 03/25/25 07:00 03/25/25 07:00
I&O
03/24/25 03/25/25 03/26/25
06:59 06:59 06:59
Intake Total 2675 / 2675
Output Total 550 / 550
Balance 2125 / 2125
Review of Systems
-
Respiratory: Reports No Symptoms
Cardiac: Reports No Symptoms
Abdomen/GI: Reports No Symptoms
Physical Exam
-
General: No Apparent Distress
HEENT: Negative Oxygen
Musculoskeletal: No Edema
Neuro: Awake, Alert, Oriented and AO x 3
Psych: Calm
[2025-03-25] MEDS: NOVOLOG FLEXPEN-MODERATE RESISTANCE 3 UNITS SC ×2 (12:29→18:31)
--- NOTE | 2025-03-25 13:44 | PTCARENOTE ---
03/25/2025 DIABETES EDUCATION CONSULT
I met with patient to review diabetes management. He has had recurrent UTI's, also had kidney transplant in 2022. Discussed that his glucose has been 223-482 while inpatient and having an infection can cause elevations in blood sugar.
I educated on physiology of T2D, organ damage, managing with medications, monitoring BG, nutrition, activity, sleep and managing stress. I reinforced signs of hyperglycemia, hypoglycemia and hypoglycemia protocol; BS parameters and recommended HbA1c
goals, medic alert bracelet and outpatient DSME program. He may be interested in seeing an RD, I asked him to contact office upon d/c. Written material provided.
He wears the [employer] 3 CGM with reader. We reviewed settings and reports. His 14 day Time in range 62% above target and 38% in target, I reviewed the goal is to be 70% or greater above target. His 30 day average blood sugar is 209
mg/dL. I educated and demonstrated on insulin injection technique, timing, and storage. Discussed long and short acting insulin; onset/peak/duration. He keeps insulin pens in the refrigerator all the time, discussed leaving it at room
temperature while pen is in use. Discussed need to change needle before every injection. He reuses needles 2 times, I educated that this is not advised and using a new needle each time is sterile. He injects insulin in leg and abdomen, has noticed
lumps on his leg. Reinforced the need to rotate injection sites, he confirmed he does this and does not inject on the lump.
Discussed normal target glucose ranges. He states he takes Humalog 30 minutes before meals, I educated that this is to be administered 15 minutes before each meal or blood sugar can drop before eating and glucose will be elevated after eating.
States he injects Lantus every night at 10PM. Discussed the features of the InPen in helping with dosing and reminders. He states his home dose of Humalog is 10 units, he used to have a sliding scale, and states his Lantus dose is 30 units.
Encouraged patient to follow up with his PCP for post d/c appointment and Dr. Soria his lean manufacturing engineer to monitor his diabetes medication and blood glucose levels. Patient verbalized understanding.
--- NOTE | 2025-03-25 14:04 | W.PN.NEPH.PH ---
Today's Communication / Plan
-
Follow BMP
Antibiotics directed for gram-negative UTI
Maintain sodium HCO3 for metabolic acidosis
Creatinine down to 2.2
Tacrolimus trough level was 5.9
Assessment/Plan
-
Impression:
Presentation with syncope falls and weakness
SHERRY
Right lower quadrant living related kidney transplant October 2022
History of enterococcal bacteremia and UTI
Recent history of Klebsiella pneumonia bacteremia from early February 2025
CKD IIIb-baseline cr 1.9 (02/24/25)
History of diabetic nephropathy
b/l LE Wounds
ASCVD / PAD
Benign Hypertension
Anxiety
syncope from severe orthostatic hypotension
DM2-with microvascular complications
Anxiety, Insomnia
BPH
1.2 cm left adrenal adenoma
Autonomic neuropathy
Metabolic acidosis
Anemia
Plan:
SHERRY:
- Checked tacrolimus trough level, need a true 10-hour trough level 5.9 (good)
-Creatinine at 2.2
-Renal u/s reviewed some elevated resistive indices but this is common found in transplanted kidney
- Accurate I's and O's
- Patient is baseline hemodynamically labile due to underlying autonomic neuropathy (maintain midodrine support with as needed hydralazine), MELVA stockluz
- Blood cultures pending, empiric ceftriaxone provided by primary service
-Urine culture notes gram-negative celio bacilli
- Maintain current immunosuppression regimen which consist of mycophenolate tacrolimus, and low-dose prednisone
- maintain sodium bicarbonate for acute on chronic metabolic acidosis
-
-
Date of Service: March 25, 2025
CC / HPI / ROS
-
Chief Complaint:
Acute kidney injury
Renal transplant
History of Present Illness:
Creatinine down to 2.2
Metabolic acidosis improving on oral sodium bicarb and
Hemodynamically labile
Review of Systems:
Nonoliguric
No fevers
No chest pain or shortness of breath
Labs
-
Labs:
WBC 10.5 10^3/uL (4.8-10.8) 03/24/25 06:25
RBC 3.76 10^6/uL (4.70-6.10) L 03/24/25 06:25
Hgb 10.1 g/dL (13.0-18.0) L 03/24/25 06:25
Hct 31.9 % (39.0-52.0) L 03/24/25 06:25
Plt Count 143 10^3/uL (130-400) 03/24/25 06:25
Sodium 138 mmol/L (135-145) 03/25/25 06:31
Potassium 4.9 mmol/L (3.5-5.1) 03/25/25 06:31
Chloride 108 mmol/L (98-107) H 03/25/25 06:31
Carbon Dioxide 19 mmol/L (22-30) L 03/25/25 06:31
BUN 60 mg/dl (9-20) H 03/25/25 06:31
Creatinine 2.2 mg/dL (0.7-1.3) H 03/25/25 06:31
eGFR 31.05 03/25/25 06:31
Glucose 266 mg/dl (70-99) H 03/25/25 06:31
Calcium 9.1 mg/dl (8.4-10.2) 03/25/25 06:31
Albumin 3.9 g/dl (3.5-5.0) 03/23/25 18:27
Physical Exam
-
Vital Signs:
Vital Signs
Temp Pulse Resp BP Pulse Ox
97.3 F 65 20 148/68 98
03/25/25 11:00 03/25/25 11:00 03/25/25 11:00 03/25/25 11:00 03/25/25 11:00
Cardiovascular:: Regular rate and rhythm
Respiratory:: Bilateral: CTA
Lung Excursion:: Normal
Abdomen:: Nontender and Soft
Bowel Sounds:: Normal
Extremity Edema:: None: Bilateral:
[2025-03-25 16:16] LABS: Glucose - Point of Care 203 mg/dl (70-99)
[2025-03-25 21:12] LABS: Glucose - Point of Care 316 mg/dl (70-99)
[2025-03-25] MEDS: LANTUS 0.3 UNITS SC (22:23)
[2025-03-26] VITALS (7 sets, daily range): BP systolic 93–193; BP diastolic 50–83; PULSE 64–72; BMI 25.4
[2025-03-26] MEDS: ROCEPHIN 1000 MG IV (02:28)
[2025-03-26] MEDS: STERILE WATER FOR INJECTION 10 ML IV (02:28)
[2025-03-26] MEDS: SYNTHROID 25 MCG PO (04:17)
[2025-03-26 07:12] LABS: Glucose - Point of Care 336 mg/dl (70-99)
[2025-03-26 09:16] LABS: Blood Urea Nitrogen 61 mg/dl (9-20); Calcium 9.1 mg/dl (8.4-10.2); Carbon Dioxide 19 mmol/L (22-30); Chloride 106 mmol/L (98-107); Estimated Creatinine Clearance 33 ml/min; Glucose 354 mg/dl (70-99); Potassium 5.3 mmol/L (3.5-5.1); Sodium 135 mmol/L (135-145); eGFR 31.05
[2025-03-26] MEDS: NOVOLOG FLEXPEN 10 UNITS SC ×3 (09:37→16:34)
[2025-03-26] MEDS: NOVOLOG FLEXPEN-MODERATE RESISTANCE 7 UNITS SC (09:37)
[2025-03-26] MEDS: MYFORTIC DELAYED REL. 720 MG PO ×2 (09:38→19:53)
[2025-03-26] MEDS: LIPITOR 40 MG PO (09:39)
[2025-03-26] MEDS: ELIQUIS 5 MG PO ×2 (09:39→19:53)
[2025-03-26] MEDS: DELTASONE 10 MG PO (09:40)
[2025-03-26] MEDS: PROGRAF 1 MG PO ×2 (09:40→19:53)
[2025-03-26] MEDS: SODIUM BICARBONATE 650 MG PO ×3 (09:40→21:30)
[2025-03-26] MEDS: ASPIR LOW (ENTERIC COATED) 81 MG PO (09:40)
[2025-03-26] MEDS: TOPROL XL 12.5 MG PO (09:41)
--- NOTE | 2025-03-26 11:57 | W.PN.NEPH.PH ---
Today's Communication / Plan
-
gentle IVF
follow bladder scan
follow labs
Assessment/Plan
-
Impression:
Presentation with syncope falls and weakness
SHERRY
Right lower quadrant living related kidney transplant October 2022
History of enterococcal bacteremia and UTI
Recent history of Klebsiella pneumonia bacteremia from early February 2025
CKD IIIb-baseline cr 1.9 (02/24/25)
History of diabetic nephropathy
b/l LE Wounds
ASCVD / PAD
Benign Hypertension
Anxiety
syncope from severe orthostatic hypotension
DM2-with microvascular complications
Anxiety, Insomnia
BPH
1.2 cm left adrenal adenoma
Autonomic neuropathy
Metabolic acidosis
Anemia
Plan:
SHERRY: likely prerenal
cr slow to improve at 2.2
will try gentle IVF with bicarb today
monitor k, pert of it could be from hyperglycemia
improving met acidosis on po bicarb
Tac level is good 5.9
-Renal u/s reviewed some elevated resistive indices but this is common found in transplanted kidney
follow bladder scan with prior h/o retention
Patient is baseline hemodynamically labile due to underlying autonomic neuropathy (maintain midodrine support with as needed hydralazine), MELVA kahn
U cx shows Kleb-similar to previous UTIs-ID consulted
I think he should follow with out pt
Maintain current immunosuppression regimen which consist of mycophenolate tacrolimus, and low-dose prednisone
he will need f/u with DR Villasenor at d/c
Also we reviewed option of Droxydopa in future if he fails to respond to midodrine
d/w pt and primary
-
-
Date of Service: March 26, 2025
CC / HPI / ROS
-
Chief Complaint:
Acute kidney injury
Renal transplant
History of Present Illness:
Creatinine no change at 2.2
Metabolic acidosis stable on oral sodium bicarb and
Hemodynamically labile
Review of Systems:
Nonoliguric
No fevers
No chest pain or shortness of breath
Labs
-
Labs:
WBC 10.5 10^3/uL (4.8-10.8) 03/24/25 06:25
RBC 3.76 10^6/uL (4.70-6.10) L 03/24/25 06:25
Hgb 10.1 g/dL (13.0-18.0) L 03/24/25 06:25
Hct 31.9 % (39.0-52.0) L 03/24/25 06:25
Plt Count 143 10^3/uL (130-400) 03/24/25 06:25
Sodium 135 mmol/L (135-145) 03/26/25 07:06
Potassium 5.3 mmol/L (3.5-5.1) H 03/26/25 07:06
Chloride 106 mmol/L (98-107) 03/26/25 07:06
Carbon Dioxide 19 mmol/L (22-30) L 03/26/25 07:06
BUN 61 mg/dl (9-20) H 03/26/25 07:06
Creatinine 2.2 mg/dL (0.7-1.3) H 03/26/25 07:06
eGFR 31.05 03/26/25 07:06
Glucose 354 mg/dl (70-99) H 03/26/25 07:06
Calcium 9.1 mg/dl (8.4-10.2) 03/26/25 07:06
Albumin 3.9 g/dl (3.5-5.0) 03/23/25 18:27
Physical Exam
-
Vital Signs:
Vital Signs
Temp Pulse Resp BP Pulse Ox
97.4 F 61 16 160/75 98
03/26/25 11:00 03/26/25 11:00 03/26/25 11:00 03/26/25 11:00 03/26/25 11:00
Cardiovascular:: Regular rate and rhythm
Respiratory:: Bilateral: CTA
Lung Excursion:: Normal
Abdomen:: Nontender and Soft
Bowel Sounds:: Normal
Extremity Edema:: None: Bilateral:
[place] Catheter: No
[2025-03-26 12:00] LABS: Glucose - Point of Care 361 mg/dl (70-99)
[2025-03-26] MEDS: NOVOLOG FLEXPEN-MODERATE RESISTANCE 9 UNITS SC (12:11)
--- NOTE | 2025-03-26 13:28 | CON.ID ---
Consultation
-
Date/Time Consultation Requested: 03/26/2025 1130
Date/Time Consultation Performed: 03/26/2025 1330
Requesting Provider: Dr. Rodriguez
Performing Provider: Dr. Kumar
Reason for Consultation: Recurrent urinary tract infection
Chief Complaint / Past History
History of Present Illness
Evan Mendez is a 74-year-old man with a significant past medical history of ESRD s/p renal transplant (10/2022) being evaluated at the request of Dr. Rodriguez in regards to possible urinary tract infection. History is obtained from chart review,
along with patient interview.
The patient presented to [facility] 03/23/2025 regarding concerns over dizziness and weakness over the prior several days. He has a history of several syncopal episodes over the prior several days prior to presentation, but did not fall or
hit his head.
According to the patient's who was present, approximately 10 days ago the patient began to feel tired and had decreased oral intake (reportedly not eating or drinking) for approximately 3 days. The patient's called an ambulance 1 week
ago, but the patient refused to be transported. He reportedly had a fever of 101 at home. The next day the patient's PCP was called, and gave recommendations. Ultimately, the patient continued to grow further week and was brought to the hospital
on 03/23. The patient reports no headache. He reports no nausea, vomiting or diarrhea. He does admit to orthostatic hypotension for which he has been prescribed midodrine. He denies any dysuria, although notes that his urine has been 'dark'. He
denies significant discomfort over the transplant kidney, but notes he has had intermittent bilateral lower quadrant discomfort.
Past History
Additional Past Medical History:
Diabetes with neuropathy and nephropathy
ESRD; previously on HD; hx transplant
CKD3
HTN
Dyslipidemia
CAD
CVA
PAD s/p RLE endovascular intervention (08/18/24)
YASH on CPAP
Anxiety/depression
Macular degeneration
Narcolepsy
ADHD
Additional Past Surgical History:
Living related donor renal transplant (10/31/2022; [facility])
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
Appendectomy
Right AV fistula
TURP
Knee arthroscopic surgery
Allergy History:
No Known Allergies Allergy (Verified 03/23/25 18:18)
Medications Reviewed: Yes
Current Antibiotics:
Ceftriaxone
Social History
Tobacco: Former Smoker
Alcohol: None
Drug: None
Personal:
Living: With Family
Employment: Retired ([place])
Family History
Family History: Not Pertinent
Review of Systems
Vital Signs
Temp Pulse Resp BP Pulse Ox
97.4 F 61 16 160/75 98
03/26/25 11:00 03/26/25 11:00 03/26/25 11:00 03/26/25 11:00 03/26/25 11:00
Physical Exam
Physical Exam
Constitutional: No Acute Distress, Comfortable, Chronically Ill and Non-toxic
Eyes: No Conjunctival Hemorrhage and Sclera Anicteric
Cardiovascular: S1/S2; Negative S3/S4
Pulmonary: Clear; Negative Wheezes, Rales or Rhonchi
Gastrointestinal: Soft, Non Tender, Non Distended, Normal Bowel Sounds, No Rebound and No Guarding
Genito-Urinary: Negative Davenport, Suprapubic Tenderness or CVA Tenderness
Extremities: Negative Edema, Cyanosis or Erythema
Neurological: Awake and Alert
Lab / Diagnostic Study Results
03/24/25 06:25
03/26/25 07:06
Abs Immat Gran (auto) 0.1 10^3/uL (0-0.05) H 03/23/25 18:27
Absolute Neuts (auto) 9.1 10^3/uL (1.4-6.5) H 03/23/25 18:27
Absolute Lymphs (auto) 1.1 10^3/uL (1.2-3.4) L 03/23/25 18:27
Absolute Monos (auto) 1.0 10^3/uL (0.1-0.6) H 03/23/25 18:27
Absolute Basos (auto) 0.1 10^3/uL (0-0.2) 03/23/25 18:27
Immature Gran % 0.4 % (0-0.5) 03/23/25 18:27
Neutrophils % 79.3 % (42.2-75.2) H 03/23/25 18:27
Lymphocytes % 9.9 % (20.5-51.1) L 03/23/25 18:27
Monocytes % 8.9 % (1.7-9.3) 03/23/25 18:27
Eosinophils % 1.1 % (0-6) 03/23/25 18:27
Basophils % 0.4 % (0-2) 03/23/25 18:27
Ur Squamous Epith Cells 11-15 /LPF (Few) 03/23/25 23:58
Microbiology Results
Micro:
03/23/25 23:58 Urine Culture - Final
Urine Klebsiella pneumoniae
Urine Culture Final 03/26/25-0857
CC: Greater than 100,000 CFU/ML Klebsiella pneumoniae
Organism 1 Klebsiella pneumoniae
1. Klebsiella pneumoniae
M.I.C. RX
--------- ---
Amoxicillin/Potas. Clavulanate <=8/4 S
Ampicillin >16 R
Ampicillin/Sulbactam >16/8 R
Aztreonam <=4 S
Cefazolin 4 I
Cefazolin interpretations for E. coli, K. pneumo and
P. mirabilis for uncomplicated uti are as follows:
<=16 Susceptible
> 16 Resistant
Cefepime <=2 S
Ceftazidime <=1 S
Ceftriaxone <=1 S
Ertapenem <=0.5 S
Ciprofloxacin 0.5 I
Gentamicin >8 R
Meropenem <=1 S
Nitrofurantoin-Urine Only 64 I
Piperacillin/Tazobactam <=8 S
Tetracycline <=4 S
Tobramycin 8 I
Trimethoprim/Sulfamethoxazole >2/38 R
Imaging:
03/24/2025 Ultrasound renal transplant: Transplant kidney in the right lateral pelvis measuring 11.7 x 7.1 x 7.3 cm. No hydronephrosis. No perinephric edema or fluid collection. The main renal artery and vein are patent. Resistive indices of 0.87 in
the main renal artery, 0.69 in the superior interlobar artery, 0.76 in the mid interlobar artery, and 0.80 in the inferior interlobar artery.
Assessment / Plan
Bacteriuria without pyuria
Renal transplant patient
Renal insufficiency
Leukocytosis; resolved
Diabetes with neuropathy and nephropathy
ESRD; previously on HD; hx transplant
CKD3
HTN
Dyslipidemia
CAD
CVA
PAD s/p RLE endovascular intervention (08/18/24)
YASH on CPAP
Anxiety/depression
Macular degeneration
Narcolepsy
ADHD
Recommendations:
Patient with recent bacteriuria in early February, now presenting with a repeat urine culture with similar organism.
Not clear if presenting symptomatology is consistent with a UTI, but given the presence of a transplant, we will treat.
Continue with ceftriaxone for now, but can transition to oral cefdinir at time of discharge (dosed for renal insufficiency).
I discussed extensively with the patient and his that follow-up with the transplant team at [place] is mandatory.
Given recurrence of bacteriuria, he should be worked up for structural issues that may be contributing to recurrence of his bacteriuria.
--- NOTE | 2025-03-26 14:10 | W.PN.HOSP.TC ---
Today's Communication/Plan
-
see note
maintain on abx
Assessment / Plan
Assessment / Plan
1. 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 Renal transplant ultrasound showed minimal resistive index and
renal artery suggestive of minimal renal dysfunction. Urine culture growing again klebsiella Pneumonia with partial drug resistance. ID evaluation requested in light of recurrent UTI with same organism. Patient is immunosuppressed with renal
transplant meds and will need to f/u withe [place] urologist with recurrent infection. Check bladder scan for any asymptomatic retention, which can also cause recurrence of uti.
2. History of renal transplant for ESRD from diabetic nephropathy. SHERRY on CKDIIIB of transplanted kidney -baseline creatinine close to 1.8-1.9. Came in with admission creatinine of 2.5 which is trending down. Tacrolimus level 5.9 within normal
limit. Renal transplant kidney showing increased resistive index and renal artery suggestive of mild kidney dysfunction. Nephrology involved in care and help appreciated.
3. Uncontrolled hypertension -on regimen of Toprol-XL and hydralazine. Will add as needed hydralazine IV for systolic blood pressure greater 160
4. Hyperkalemia/metabolic acidosis -oral bicarb therapy and low potassium diet ordered. Nephro help appreciated.
5. History of autonomic dysfunction -patient with significant blood pressure swings and symptomatic at times. Unfortunately unable to control due to lability of blood. Discussed with nephrology and will continue current blood pressure regimen.
Full code
Care plan discussed with nephro/ID
Anticipated Discharge: 24 - 48 hours
Subjective/Interval History
-
Date of Service: March 26, 2025
no new complains
afebrile
Objective Data
-
Labs:
Laboratory Results
03/26/25
07:06
Sodium 135
Potassium 5.3 H
Chloride 106
Carbon Dioxide 19 L
BUN 61 H
Creatinine 2.2 H
Glucose 354 H
Calcium 9.1
Vital Signs:
Vital Signs
Temp Pulse Resp BP Pulse Ox
97.4 F 61 16 160/75 98
03/26/25 11:00 03/26/25 11:00 03/26/25 11:00 03/26/25 11:00 03/26/25 11:00
I&O
03/25/25 03/26/25 03/27/25
06:59 06:59 06:59
Intake Total 2675 / 2675 780 / 780
Output Total 550 / 550 450 / 450
Balance 2125 / 2125 330 / 330
Review of Systems
-
Respiratory: Reports No Symptoms
Cardiac: Reports No Symptoms
Abdomen/GI: Reports No Symptoms
Physical Exam
-
General: No Apparent Distress
HEENT: Negative Oxygen
Musculoskeletal: No Edema
Neuro: Awake, Alert, Oriented and AO x 3
Psych: Calm
[2025-03-26] MEDS: SODIUM BICARBONATE 1075 MEQ IV (14:24)
[2025-03-26 16:19] LABS: Glucose - Point of Care 146 mg/dl (70-99)
[2025-03-26] MEDS: NOVOLOG FLEXPEN-MODERATE RESISTANCE SC (16:33)
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
[2025-03-26 21:24] LABS: Glucose - Point of Care 245 mg/dl (70-99)
[2025-03-26] MEDS: LANTUS 0.3 UNITS SC (21:27)
[2025-03-27] VITALS (8 sets, daily range): BP systolic 97–185; BP diastolic 49–79; PULSE 68–77; BMI 25.9
[2025-03-27] MEDS: APRESOLINE 10 MG IV (00:49)
[2025-03-27] MEDS: STERILE WATER FOR INJECTION 10 ML IV (00:50)
[2025-03-27] MEDS: ROCEPHIN 1000 MG IV (00:50)
[2025-03-27] MEDS: SYNTHROID 25 MCG PO (05:03)
[2025-03-27 08:31] LABS: Glucose - Point of Care 350 mg/dl (70-99)
[2025-03-27 08:59] LABS: Blood Urea Nitrogen 61 mg/dl (9-20); Calcium 9.1 mg/dl (8.4-10.2); Carbon Dioxide 23 mmol/L (22-30); Chloride 105 mmol/L (98-107); Estimated Creatinine Clearance 32 ml/min; Glucose 346 mg/dl (70-99); Potassium 5.2 mmol/L (3.5-5.1); Sodium 138 mmol/L (135-145); eGFR 29.43
[2025-03-27] MEDS: NOVOLOG FLEXPEN-MODERATE RESISTANCE 9 UNITS SC (09:02)
[2025-03-27] MEDS: NOVOLOG FLEXPEN 10 UNITS SC ×2 (09:02→12:42)
[2025-03-27] MEDS: SODIUM BICARBONATE 650 MG PO ×3 (09:03→19:50)
[2025-03-27] MEDS: TOPROL XL 12.5 MG PO (09:03)
[2025-03-27] MEDS: LIPITOR 40 MG PO (09:05)
[2025-03-27] MEDS: ELIQUIS 5 MG PO ×2 (09:05→19:50)
[2025-03-27] MEDS: MYFORTIC DELAYED REL. 720 MG PO ×2 (09:05→19:50)
[2025-03-27] MEDS: PROGRAF 1 MG PO ×2 (09:06→19:51)
[2025-03-27] MEDS: DELTASONE 5 MG PO (09:06)
[2025-03-27] MEDS: ASPIR LOW (ENTERIC COATED) 81 MG PO (09:06)
[2025-03-27] MEDS: FLOMAX 0.4 MG PO (11:35)
[2025-03-27 12:12] LABS: Glucose - Point of Care 316 mg/dl (70-99)
[2025-03-27] MEDS: NOVOLOG FLEXPEN-MODERATE RESISTANCE 7 UNITS SC (12:41)
--- NOTE | 2025-03-27 13:59 | W.PN.NEPH.PH ---
Today's Communication / Plan
-
follow bladder scan and labs
Assessment/Plan
-
Impression:
Presentation with syncope falls and weakness
SHERRY
Right lower quadrant living related kidney transplant October 2022
History of enterococcal bacteremia and UTI
Recent history of Klebsiella pneumonia bacteremia from early February 2025
CKD IIIb-baseline cr 1.9 (02/24/25)
History of diabetic nephropathy
b/l LE Wounds
ASCVD / PAD
Benign Hypertension
Anxiety
syncope from severe orthostatic hypotension
DM2-with microvascular complications
Anxiety, Insomnia
BPH
1.2 cm left adrenal adenoma
Autonomic neuropathy
Metabolic acidosis
Anemia
Plan:
SHERRY: likely prerenal
cr no change at 2.3 despite IVF
noted mod U retention, may need frausto
reportedly need to go back his at [place] since he is transplant kidney
cont IC as need, pt reports doing Self cath before
monitor k, pert of it could be from hyperglycemia, low k diet
improving met acidosis , cont po bicarb
Tac level is good 5.9, cont Tac, MMF and pred 5mg
Renal u/s reviewed some elevated resistive indices but this is common found in transplanted kidney
Patient is baseline hemodynamically labile due to underlying autonomic neuropathy (maintain midodrine support with as needed hydralazine), MELVA kahn
he is now on flomax for retention-need careful monitoring
U cx shows Kleb-similar to previous UTIs-ID follows
he will need f/u with DR Villasenor at d/c
Also we reviewed option of Droxydopa in future if he fails to respond to midodrine
d/w pt and primary
-
-
Date of Service: March 27, 2025
CC / HPI / ROS
-
Chief Complaint:
Acute kidney injury
Renal transplant
History of Present Illness:
Creatinine no change at 2.3, k 5.2. BG high
Metabolic acidosis better at 23 on oral sodium bicarb and
Hemodynamically labile
Review of Systems:
Nonoliguric
No fevers
No chest pain or shortness of breath
Labs
-
Labs:
WBC 10.5 10^3/uL (4.8-10.8) 03/24/25 06:25
RBC 3.76 10^6/uL (4.70-6.10) L 03/24/25 06:25
Hgb 10.1 g/dL (13.0-18.0) L 03/24/25 06:25
Hct 31.9 % (39.0-52.0) L 03/24/25 06:25
Plt Count 143 10^3/uL (130-400) 03/24/25 06:25
Sodium 138 mmol/L (135-145) 03/27/25 07:48
Potassium 5.2 mmol/L (3.5-5.1) H 03/27/25 07:48
Chloride 105 mmol/L (98-107) 03/27/25 07:48
Carbon Dioxide 23 mmol/L (22-30) 03/27/25 07:48
BUN 61 mg/dl (9-20) H 03/27/25 07:48
Creatinine 2.3 mg/dL (0.7-1.3) H 03/27/25 07:48
eGFR 29.43 03/27/25 07:48
Glucose 346 mg/dl (70-99) H 03/27/25 07:48
Calcium 9.1 mg/dl (8.4-10.2) 03/27/25 07:48
Albumin 3.9 g/dl (3.5-5.0) 03/23/25 18:27
Physical Exam
-
Vital Signs:
Vital Signs
Temp Pulse Resp BP Pulse Ox
97.5 F 68 18 158/67 97
03/27/25 11:00 03/27/25 11:00 03/27/25 11:00 03/27/25 11:00 03/27/25 11:00
Cardiovascular:: Regular rate and rhythm
Respiratory:: Bilateral: CTA
Lung Excursion:: Normal
Abdomen:: Nontender and Soft
Bowel Sounds:: Normal
Extremity Edema:: None: Bilateral:
Frausto Catheter: No
--- NOTE | 2025-03-27 14:05 | W.PN.HOSP.TC ---
Today's Communication/Plan
-
see note
Assessment / Plan
Assessment / Plan
1. 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 Renal transplant ultrasound showed minimal resistive index and
renal artery suggestive of minimal renal dysfunction. Urine culture growing again klebsiella Pneumonia with partial drug resistance. ID evaluation requested in light of recurrent UTI with same organism. Patient is immunosuppressed with renal
transplant meds and will need to f/u withe [place] urologist with recurrent infection. Check bladder scan for any asymptomatic retention, which can also cause recurrence of uti.
2. History of renal transplant for ESRD from diabetic nephropathy. SHERRY on CKDIIIB of transplanted kidney -baseline creatinine close to 1.8-1.9. Tacrolimus level 5.9 within normal limit. Renal transplant kidney showing increased resistive index
and renal artery suggestive of mild kidney dysfunction. Renal dysfunction likely from urinary retention/post renal.
3. Urinary retention -patient have bladder scan of 640ml, able to void with PVR of 400ml, straight cathed and will monitor for next 24 hours. Discussed with patient to continue to require straight catheterization will need Davenport to preserve renal
function. Flomax added to regimen
3. Uncontrolled hypertension -on regimen of Toprol-XL and hydralazine. Will add as needed hydralazine IV for systolic blood pressure greater 160
4. Hyperkalemia/metabolic acidosis -oral bicarb therapy and low potassium diet ordered. Nephro help appreciated.
5. History of autonomic dysfunction -patient with significant blood pressure swings and symptomatic at times. Unfortunately unable to control due to lability of blood. Discussed with nephrology and will continue current blood pressure regimen.
6. Insulin-dependent diabetes mellitus -uncontrolled. Increasing Lantus to 35 unit at bedtime and Premeal novolog to 13 u AC
Full code
Care plan discussed with nephro
Total time spent : 54 mins
Anticipated Discharge: 24 - 48 hours
Subjective/Interval History
-
Date of Service: March 27, 2025
no issues overnight
Objective Data
-
Labs:
Laboratory Results
03/27/25
07:48
Sodium 138
Potassium 5.2 H
Chloride 105
Carbon Dioxide 23
BUN 61 H
Creatinine 2.3 H
Glucose 346 H
Calcium 9.1
Vital Signs:
Vital Signs
Temp Pulse Resp BP Pulse Ox
97.5 F 68 18 158/67 97
03/27/25 11:00 03/27/25 11:00 03/27/25 11:00 03/27/25 11:00 03/27/25 11:00
I&O
03/26/25 03/27/25 03/28/25
06:59 06:59 06:59
Intake Total 780 / 780 1920 / 1920
Output Total 450 / 450 823 / 823 400 / 400
Balance 330 / 330 1097 / 1097 -400 / -400
Review of Systems
-
Respiratory: Reports No Symptoms
Cardiac: Reports No Symptoms
Abdomen/GI: Reports No Symptoms
Physical Exam
-
General: No Apparent Distress
HEENT: Negative Oxygen
Musculoskeletal: No Edema
Neuro: Awake, Alert, Oriented and AO x 3
Psych: Calm
[2025-03-27 16:33] LABS: Glucose - Point of Care 177 mg/dl (70-99)
[2025-03-27] MEDS: NOVOLOG FLEXPEN-MODERATE RESISTANCE 1 UNITS SC (17:26)
[2025-03-27] MEDS: NOVOLOG FLEXPEN 13 UNITS SC (17:26)
[2025-03-27 21:17] LABS: Glucose - Point of Care 341 mg/dl (70-99)
[2025-03-27] MEDS: LANTUS 0.35 UNITS SC (21:18)
[2025-03-28] MEDS: ROCEPHIN 1000 MG IV (02:03)
[2025-03-28] MEDS: STERILE WATER FOR INJECTION 10 ML IV (02:03)
[2025-03-28 03:26] VITALS: BP 190/78
[2025-03-28 04:56] VITALS: BMI 26.1
[2025-03-28] MEDS: SYNTHROID 25 MCG PO (04:56)
[2025-03-28 07:00] VITALS: BP 190/104
[2025-03-28 07:56] LABS: Glucose - Point of Care 412 mg/dl (70-99)
[2025-03-28 08:00] LABS: Blood Urea Nitrogen 65 mg/dl (9-20); Calcium 8.8 mg/dl (8.4-10.2); Carbon Dioxide 25 mmol/L (22-30); Chloride 104 mmol/L (98-107); Estimated Creatinine Clearance 35 ml/min; Glucose 408 mg/dl (70-99); Potassium 5.4 mmol/L (3.5-5.1); Sodium 135 mmol/L (135-145); eGFR 32.83
[2025-03-28] MEDS: ASPIR LOW (ENTERIC COATED) 81 MG PO (08:37)
[2025-03-28] MEDS: SODIUM BICARBONATE 650 MG PO ×3 (08:37→21:38)
[2025-03-28] MEDS: FLOMAX 0.4 MG PO (08:37)
[2025-03-28] MEDS: TOPROL XL 12.5 MG PO (08:37)
[2025-03-28] MEDS: PROGRAF 1 MG PO ×2 (08:37→19:34)
[2025-03-28] MEDS: MYFORTIC DELAYED REL. 720 MG PO ×2 (08:37→19:34)
[2025-03-28] MEDS: LIPITOR 40 MG PO (08:37)
[2025-03-28] MEDS: ELIQUIS 5 MG PO ×2 (08:37→19:34)
[2025-03-28] MEDS: DELTASONE 5 MG PO (08:37)
[2025-03-28 08:41] LABS: Glucose 400 mg/dl (70-99)
[2025-03-28] MEDS: NOVOLOG FLEXPEN-MODERATE RESISTANCE 11 UNITS SC (08:47)
[2025-03-28] MEDS: NOVOLOG FLEXPEN 13 UNITS SC ×2 (08:47→12:03)
[2025-03-28] MEDS: LOKELMA 10 GRAM PO (10:30)
[2025-03-28 11:00] VITALS: BP 102/51; BP 130/63; BP 174/81; PULSE 62; PULSE 64
[2025-03-28 11:02] LABS: Glucose - Point of Care 375 mg/dl (70-99)
[2025-03-28] MEDS: NOVOLOG FLEXPEN-MODERATE RESISTANCE 9 UNITS SC (12:03)
--- NOTE | 2025-03-28 12:45 | W.PN.HOSP.TC ---
Today's Communication/Plan
-
see note
Assessment / Plan
Assessment / Plan
1. 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 Renal transplant ultrasound showed minimal resistive index and
renal artery suggestive of minimal renal dysfunction. Urine culture growing again klebsiella Pneumonia with partial drug resistance. ID evaluation requested in light of recurrent UTI with same organism. Patient is immunosuppressed with renal
transplant meds and will need to f/u withe [place] urologist with recurrent infection. Check bladder scan for any asymptomatic retention, which can also cause recurrence of uti.
2. History of renal transplant for ESRD from diabetic nephropathy. SHERRY on CKDIIIB of transplanted kidney -baseline creatinine close to 1.8-1.9. Tacrolimus level 5.9 within normal limit. Renal transplant kidney showing increased resistive index
and renal artery suggestive of mild kidney dysfunction. Renal dysfunction likely from urinary retention/post renal. Cr is improving and down to 2.1 today.
3. Urinary retention -patient required to be straight cath for 400, 500 ml yesterday and 800 mL in the morning today. Patient have done straight catheterization in the past and requesting to be restarted, although will be problematic as patient
does not have any sensation of fullness and in nighttime patient retains on a higher amount of urine. Davenport catheter was discussed and patient is agreeable at this point. Will discharge patient with Davenport catheter and can follow-up with [place]
urology to have voiding trial versus transition to straight catheterization.
3. Uncontrolled hypertension -on regimen of Toprol-XL and hydralazine. Will add as needed hydralazine IV for systolic blood pressure greater 160
4. Hyperkalemia/metabolic acidosis -oral bicarb therapy and low potassium diet ordered. Nephro help appreciated.
5. History of autonomic dysfunction -patient with significant blood pressure swings and symptomatic at times. Unfortunately unable to control due to lability of blood. Discussed with nephrology and will continue current blood pressure regimen.
6. Insulin-dependent diabetes mellitus -remains largely uncontrolled. Lantus dose increased to 40 units today and Premeal NovoLog to 16 units. Consider diabetic [employer]ICATING [employer]IST eval if patient not discharged tomorrow.
Full code
Care plan discussed with nephro
Total time spent : 54 mins
Anticipated Discharge: 24 - 48 hours
Subjective/Interval History
-
Date of Service: March 28, 2025
unable to void completely and required straight cath
no other complains overnight
Objective Data
-
Labs:
Laboratory Results
03/28/25 03/28/25
06:54 08:07
Sodium 135
Potassium 5.4 H
Chloride 104
Carbon Dioxide 25
BUN 65 H
Creatinine 2.1 H
Glucose 408 H 400 H
Calcium 8.8
Vital Signs:
Vital Signs
Temp Pulse Resp BP Pulse Ox
97.5 F 64 16 102/51 99
03/28/25 07:00 03/28/25 07:00 03/28/25 07:00 03/28/25 10:58 03/28/25 08:10
I&O
03/27/25 03/28/25 03/29/25
06:59 06:59 06:59
Intake Total 1920 / 192 720 / 720
Output Total 823 / 823 2049 / 2049
Balance 1097 / 1097 -1330 / -1330
Review of Systems
-
Respiratory: Reports No Symptoms
Cardiac: Reports No Symptoms
Abdomen/GI: Reports No Symptoms
Physical Exam
-
General: No Apparent Distress
HEENT: Negative Oxygen
Musculoskeletal: No Edema
Neuro: Awake, Alert, Oriented and AO x 3
Psych: Calm
--- NOTE | 2025-03-28 13:20 | W.PN.NEPH.PH ---
Today's Communication / Plan
-
d/c plan with frausot
Assessment/Plan
-
Impression:
Presentation with syncope falls and weakness
SHERRY
Right lower quadrant living related kidney transplant October 2022
History of enterococcal bacteremia and UTI
Recent history of Klebsiella pneumonia bacteremia from early February 2025
CKD IIIb-baseline cr 1.9 (02/24/25)
History of diabetic nephropathy
b/l LE Wounds
ASCVD / PAD
Benign Hypertension
Anxiety
syncope from severe orthostatic hypotension
DM2-with microvascular complications
Anxiety, Insomnia
BPH
1.2 cm left adrenal adenoma
Autonomic neuropathy
Metabolic acidosis
Anemia
Plan:
SHERRY: likely prerenal and U retention
cr slightly better at 2.1
noted mod U retention, may need frausto
reportedly need to go back his at [facility] since he is transplant kidney
cont IC as need, pt reports doing Self cath before
monitor k, part of it could be from hyperglycemia, low k diet, lokelma today
improved met acidosis , cont po bicarb
Tac level is good 5.9, cont Tac, MMF and pred 5mg
Renal u/s reviewed some elevated resistive indices but this is common found in transplanted kidney
Patient is baseline hemodynamically labile due to underlying autonomic neuropathy (maintain midodrine support with as needed hydralazine), MELVA kahn
he is now on flomax for retention-need careful monitoring
U cx shows Kleb-similar to previous UTIs-ID follows
he will need f/u with DR Villasenor at d/c , [facility] in 1week
Also we reviewed option of Droxydopa in future if he fails to respond to midodrine
d/w pt in detail
-
-
Date of Service: March 28, 2025
CC / HPI / ROS
-
Chief Complaint:
Acute kidney injury
Renal transplant
History of Present Illness:
Creatinine better at 2.1, k 5.2. BG high
Metabolic acidosis better at 25 on oral sodium bicarb and
Hemodynamically labile
required SC x3
Review of Systems:
Nonoliguric
No fevers
No chest pain or shortness of breath
Labs
-
Labs:
WBC 10.5 10^3/uL (4.8-10.8) 03/24/25 06:25
RBC 3.76 10^6/uL (4.70-6.10) L 03/24/25 06:25
Hgb 10.1 g/dL (13.0-18.0) L 03/24/25 06:25
Hct 31.9 % (39.0-52.0) L 03/24/25 06:25
Plt Count 143 10^3/uL (130-400) 03/24/25 06:25
Sodium 135 mmol/L (135-145) 03/28/25 06:54
Potassium 5.4 mmol/L (3.5-5.1) H 03/28/25 06:54
Chloride 104 mmol/L (98-107) 03/28/25 06:54
Carbon Dioxide 25 mmol/L (22-30) 03/28/25 06:54
BUN 65 mg/dl (9-20) H 03/28/25 06:54
Creatinine 2.1 mg/dL (0.7-1.3) H 03/28/25 06:54
eGFR 32.83 03/28/25 06:54
Glucose 400 mg/dl (70-99) H 03/28/25 08:07
Calcium 8.8 mg/dl (8.4-10.2) 03/28/25 06:54
Albumin 3.9 g/dl (3.5-5.0) 03/23/25 18:27
Physical Exam
-
Vital Signs:
Vital Signs
Temp Pulse Resp BP Pulse Ox
97.6 F 62 16 174/81 95
03/28/25 11:00 03/28/25 11:00 03/28/25 11:00 03/28/25 11:00 03/28/25 11:00
Cardiovascular:: Regular rate and rhythm
Respiratory:: Bilateral: CTA
Lung Excursion:: Normal
Abdomen:: Nontender and Soft
Bowel Sounds:: Normal
Extremity Edema:: None: Bilateral:
Frausto Catheter: No
[2025-03-28 15:00] VITALS: BP 165/71
[2025-03-28 16:45] LABS: Glucose - Point of Care 322 mg/dl (70-99)
[2025-03-28] MEDS: NOVOLOG FLEXPEN 16 UNITS SC (16:50)
[2025-03-28] MEDS: NOVOLOG FLEXPEN-MODERATE RESISTANCE 7 UNITS SC (16:50)
[2025-03-28 21:29] LABS: Glucose - Point of Care 460 mg/dl (70-99)
[2025-03-28 22:02] LABS: Glucose 473 mg/dl (70-99)
[2025-03-28] MEDS: LANTUS 0.4 UNITS SC (22:30)
[2025-03-28] MEDS: NOVOLOG FLEXPEN 20 UNITS SC (22:31)
[2025-03-28 23:04] VITALS: BP 195/85
[2025-03-29] MEDS: ROCEPHIN 1000 MG IV (00:49)
[2025-03-29] MEDS: STERILE WATER FOR INJECTION 10 ML IV (00:49)
[2025-03-29 03:12] LABS: Glucose - Point of Care 486 mg/dl (70-99)
[2025-03-29 03:52] LABS: Glucose 517 mg/dl (70-99)
[2025-03-29] MEDS: NOVOLOG FLEXPEN 20 UNITS SC (04:10)
[2025-03-29] MEDS: SYNTHROID 25 MCG PO (05:00)
[2025-03-29 05:10] VITALS: BMI 26.1
[2025-03-29 07:12] LABS: Glucose - Point of Care 311 mg/dl (70-99)
[2025-03-29] MEDS: NOVOLOG FLEXPEN 16 UNITS SC ×2 (07:17→12:24)
[2025-03-29] MEDS: NOVOLOG FLEXPEN-MODERATE RESISTANCE 7 UNITS SC (07:17)
[2025-03-29 08:29] VITALS: BP 158/70
[2025-03-29] MEDS: ASPIR LOW (ENTERIC COATED) 81 MG PO (08:46)
[2025-03-29] MEDS: TOPROL XL 12.5 MG PO (08:46)
[2025-03-29] MEDS: FLOMAX 0.4 MG PO (08:47)
[2025-03-29] MEDS: ELIQUIS 5 MG PO (08:47)
[2025-03-29] MEDS: MYFORTIC DELAYED REL. 720 MG PO (08:47)
[2025-03-29] MEDS: SODIUM BICARBONATE 650 MG PO (08:47)
[2025-03-29] MEDS: LIPITOR 40 MG PO (08:47)
[2025-03-29] MEDS: DELTASONE 5 MG PO (08:47)
[2025-03-29] MEDS: PROGRAF 1 MG PO (08:48)
[2025-03-29 08:57] VITALS: BP 131/70; BP 139/69; BP 141/70; PULSE 78; PULSE 79; PULSE 80
[2025-03-29 09:08] LABS: Blood Urea Nitrogen 58 mg/dl (9-20); Calcium 9.0 mg/dl (8.4-10.2); Carbon Dioxide 25 mmol/L (22-30); Chloride 105 mmol/L (98-107); Estimated Creatinine Clearance 37 ml/min; Glucose 324 mg/dl (70-99); Potassium 4.7 mmol/L (3.5-5.1); Sodium 139 mmol/L (135-145); eGFR 34.81
--- NOTE | 2025-03-29 11:07 | W.PN.ID1 ---
Date of Service
Date of Service: March 29, 2025
Today's Communication
Continue antibiotics. Transition to cefdinir, to continue for an additional 6 days.
Assessment / Plan
Bacteriuria without pyuria
Renal transplant patient
Renal insufficiency
Leukocytosis; resolved
Diabetes with neuropathy and nephropathy
ESRD; previously on HD; hx transplant
CKD3
HTN
Dyslipidemia
CAD
CVA
PAD s/p RLE endovascular intervention (08/18/24)
YASH on CPAP
Anxiety/depression
Macular degeneration
Narcolepsy
ADHD
Recommendations:
Ceftriaxone (d#8)
Patient with recent bacteriuria in early February, now again with urine culture Klebsiella pneumonia.
Not clear if presenting symptomatology is consistent with a UTI, but given the presence of a transplant patient on treatment.
Transition to oral cefdinir dosed for renal insufficiency.
I previously discussed extensively with the patient and his that follow-up with the transplant team at [place] following discharge is mandatory.
Given recurrence of bacteriuria, he should be worked up for structural issues that may be contributing to recurrence of his bacteriuria.
����������������������������������������������������������
Subjective / Review of Systems
Patient seen and examined. No specific complaints today.
Review of Systems: No Fever and No Chills
Vital Signs / Physical Exam
Vital Signs
Vital Signs
Temp Pulse Resp BP Pulse Ox
97.5 F 76 18 158/70 97
03/29/25 08:29 03/29/25 08:46 03/29/25 08:29 03/29/25 08:46 03/29/25 08:29
Objective Data
Lab Data
Lab Results
03/24/25 06:25
03/29/25 07:40
Estimated Creat Clear 37 ml/min 03/29/25 07:40
Total Bilirubin 0.5 mg/dl (0.2-1.3) 03/23/25 18:27
AST 17 U/L (17-59) 03/23/25 18:27
ALT 19 U/L (0-50) 03/23/25 18:27
Alkaline Phosphatase 97 U/L (38-126) 03/23/25 18:27
Most recent labs reviewed.
Micro Results:
03/23/25 23:58 Urine Culture - Final
Urine Klebsiella pneumoniae
Urine Culture Final 03/26/25-0857
CC: Greater than 100,000 CFU/ML Klebsiella pneumoniae
Organism 1 Klebsiella pneumoniae
1. Klebsiella pneumoniae
M.I.C. RX
--------- ---
Amoxicillin/Potas. Clavulanate <=8/4 S
Ampicillin >16 R
Ampicillin/Sulbactam >16/8 R
Aztreonam <=4 S
Cefazolin 4 I
Cefazolin interpretations for E. coli, K. pneumo and
P. mirabilis for uncomplicated uti are as follows:
<=16 Susceptible
> 16 Resistant
Cefepime <=2 S
Ceftazidime <=1 S
Ceftriaxone <=1 S
Ertapenem <=0.5 S
Ciprofloxacin 0.5 I
Gentamicin >8 R
Meropenem <=1 S
Nitrofurantoin-Urine Only 64 I
Piperacillin/Tazobactam <=8 S
Tetracycline <=4 S
Tobramycin 8 I
Trimethoprim/Sulfamethoxazole >2/38 R
Imaging:
03/24/2025 Ultrasound renal transplant: Transplant kidney in the right lateral pelvis measuring 11.7 x 7.1 x 7.3 cm. No hydronephrosis. No perinephric edema or fluid collection. The main renal artery and vein are patent. Resistive indices of 0.87 in
the main renal artery, 0.69 in the superior interlobar artery, 0.76 in the mid interlobar artery, and 0.80 in the inferior interlobar artery.
--- NOTE | 2025-03-29 11:33 | CM ---
Patient is for possible discharge to home today with [facility], [facility] care.
Plan; Home with [facility].
[2025-03-29 11:54] LABS: Glucose - Point of Care 225 mg/dl (70-99)
[2025-03-29] MEDS: OMNICEF 300 MG PO (12:22)
[2025-03-29] MEDS: NOVOLOG FLEXPEN-MODERATE RESISTANCE 3 UNITS SC (12:23)
--- NOTE | 2025-03-29 12:50 | W.PN.NEPH.PH ---
Today's Communication / Plan
-
dc
Assessment/Plan
-
Impression:
Presentation with syncope falls and weakness
SHERRY
Right lower quadrant living related kidney transplant October 2022
History of enterococcal bacteremia and UTI
Recent history of Klebsiella pneumonia bacteremia from early February 2025
CKD IIIb-baseline cr 1.9 (02/24/25)
History of diabetic nephropathy
b/l LE Wounds
ASCVD / PAD
Benign Hypertension
Anxiety
syncope from severe orthostatic hypotension
DM2-with microvascular complications
Anxiety, Insomnia
BPH
1.2 cm left adrenal adenoma
Autonomic neuropathy
Metabolic acidosis
Anemia
Plan:
maintain frausto
he is trying to make appt with [facility]
for dc
abx per primary team to complete course
-
-
Date of Service: March 29, 2025
CC / HPI / ROS
-
Chief Complaint:
Acute kidney injury
Renal transplant
History of Present Illness:
Creatinine better at 2.0, k 4.7
BP high but stable
Metabolic acidosis better
frausto in place
Review of Systems:
Nonoliguric
No fevers
No chest pain or shortness of breath
Labs
-
Labs:
WBC 10.5 10^3/uL (4.8-10.8) 03/24/25 06:25
RBC 3.76 10^6/uL (4.70-6.10) L 03/24/25 06:25
Hgb 10.1 g/dL (13.0-18.0) L 03/24/25 06:25
Hct 31.9 % (39.0-52.0) L 03/24/25 06:25
Plt Count 143 10^3/uL (130-400) 03/24/25 06:25
Sodium 139 mmol/L (135-145) 03/29/25 07:40
Potassium 4.7 mmol/L (3.5-5.1) 03/29/25 07:40
Chloride 105 mmol/L (98-107) 03/29/25 07:40
Carbon Dioxide 25 mmol/L (22-30) 03/29/25 07:40
BUN 58 mg/dl (9-20) H 03/29/25 07:40
Creatinine 2.0 mg/dL (0.7-1.3) H 03/29/25 07:40
eGFR 34.81 03/29/25 07:40
Glucose 324 mg/dl (70-99) H 03/29/25 07:40
Calcium 9.0 mg/dl (8.4-10.2) 03/29/25 07:40
Albumin 3.9 g/dl (3.5-5.0) 03/23/25 18:27
Physical Exam
-
Vital Signs:
Vital Signs
Temp Pulse Resp BP Pulse Ox
97.5 F 76 18 158/70 97
03/29/25 08:29 03/29/25 08:46 03/29/25 08:29 03/29/25 08:46 03/29/25 08:29
Cardiovascular:: Regular rate and rhythm
Respiratory:: Bilateral: CTA
Lung Excursion:: Normal
Abdomen:: Nontender and Soft
Bowel Sounds:: Normal
Extremity Edema:: None: Bilateral:
--- NOTE | 2025-03-29 13:03 | VNURNOTE ---
Met with patient at bedside. He is current with [facility] and wishes to continue services upon DC. Resumption referral accepted in [facility], Intake updated on status: home w/frausto.
--- NOTE | 2025-03-29 14:03 | W.PN.HOSP.TC ---
Addendum entered and electronically signed by Micah Gonzalez MD 03/31/25 17:17:
[id number]
Original Note:
Today's Communication/Plan
-
abx course
continue flomax
Cont frausto
f/u transplant team, urology, nephrology at [place]
Assessment / Plan
Assessment / Plan
1. 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 Renal transplant ultrasound showed minimal resistive index and
renal artery suggestive of minimal renal dysfunction. Urine culture growing again klebsiella Pneumonia with partial drug resistance. ID evaluation requested in light of recurrent UTI with same organism. Patient is immunosuppressed with renal
transplant meds and will need to f/u [facility] urologist with recurrent infection. Check bladder scan for any asymptomatic retention, which can also cause recurrence of uti. Cefdinir x6 more days
2. History of renal transplant for ESRD from diabetic nephropathy. SHERRY on CKDIIIB of transplanted kidney -baseline creatinine close to 1.8-1.9. Tacrolimus level 5.9 within normal limit. Renal transplant kidney showing increased resistive index
and renal artery suggestive of mild kidney dysfunction. Renal dysfunction likely from urinary retention/post renal. Cr is improving and down to 2.0 today; Follow-up with the transplant team at [place] following discharge is mandatory
3. Urinary retention -patient required to be straight cath for 400, 500 ml yesterday and 800 mL in the morning today. Patient have done straight catheterization in the past and requesting to be restarted, although will be problematic as patient
does not have any sensation of fullness and in nighttime patient retains on a higher amount of urine. Frausto catheter was discussed and patient is agreeable at this point. Will discharge patient with Frausto catheter and can follow-up with [place]
urology to have voiding trial versus transition to straight catheterization. Transplant team can also be seen
3. Uncontrolled hypertension -on regimen of Toprol-XL and hydralazine. Will add as needed hydralazine IV for systolic blood pressure greater 160
4. Hyperkalemia/metabolic acidosis -oral bicarb therapy and low potassium diet ordered. Nephro help appreciated.
5. History of autonomic dysfunction -patient with significant blood pressure swings and symptomatic at times. Unfortunately unable to control due to lability of blood. Discussed with nephrology and will continue current blood pressure regimen.
6. Insulin-dependent diabetes mellitus -remains largely uncontrolled. Lantus dose increased to 40 units today and Premeal NovoLog to 16 units.
Full code
Care plan discussed with nephro
More than 30 minutes spent in discharge including
Final examination of the patient
Summarizing hospital stay
Instructions for continuing care to all relevant caregivers
Preparation of discharge records, prescriptions, and referral forms
Total time spent (in minutes): 36
Anticipated Discharge: Today
Subjective/Interval History
-
Date of Service: March 29, 2025
No acute events overnight
Objective Data
-
Labs:
Laboratory Results
03/29/25 03/29/25
03:22 07:40
Sodium 139
Potassium 4.7
Chloride 105
Carbon Dioxide 25
BUN 58 H
Creatinine 2.0 H
Glucose 517 H* 324 H
Calcium 9.0
Vital Signs:
Vital Signs
Temp Pulse Resp BP Pulse Ox
97.5 F 76 18 158/70 97
03/29/25 08:29 03/29/25 08:46 03/29/25 08:29 03/29/25 08:46 03/29/25 08:29
I&O
03/28/25 03/29/25 03/30/25
06:59 06:59 06:59
Intake Total 720 / 720 1080 / 1080
Output Total 2049 / 2049 2850 / 2850
Balance -1330 / -1330 -1770 / -1770
Review of Systems
-
Respiratory: Reports No Symptoms
Cardiac: Reports No Symptoms
Abdomen/GI: Reports No Symptoms
Data Reviewed
-
Diagnostic Radiology: Image personally visualized and interpreted and Report Reviewed by me
CT Scan: Image personally visualized and interpreted and Report Reviewed by me
Ultrasound: Image personally visualized and interpreted and Report Reviewed by me
MRI: Image personally visualized and interpreted and Report Reviewed by me
Medical Tests (Nuc Med, Echo etc): Image personally visualized and interpreted and Report Reviewed by me
Labs: Labs Reviewed by me
Old Records: Reviewed
--- NOTE | 2025-03-29 14:05 | W.DS.TRANS ---
DC Summary - Joint Cutter
-
Discharge Instructions:
Discharge Diagnosis/Procedures Klebsiella Urinary tract infection, CKDIIB,-IV,
Mild hyperkalemia
Diet Other diet
Additional Diets Low potassium diet
Activity As tolerated
Driving Restrictions No driving
Bathing Restrictions OK to Shower
Blood Work BMP in 1 week with pcp/nephrology
Others Tests as per urologist and food assembler at [place] or
whomever can handle Transplants
Instructions:
Stand-Alone Forms:
Changes to Home Medications: Yes
Discharge Medications:
DC Medications w/original date entered in [employer]
aspirin 81 mg tablet,delayed release 81 mg PO DAILY Blood Clot Prevention/Tx 08/14/24
atorvastatin 40 mg tablet (Lipitor) 40 mg PO DAILY High Cholesterol 08/14/24
magnesium oxide 400 mg PO BID Supplement 08/14/24
mycophenolate sodium 180 mg tablet,delayed release 720 mg PO BID IMMUNOSUPPRESSANT 08/14/24
omega-3 acid ethyl esters 1 gram capsule (Lovaza) 1 cap PO BID Supplement 08/14/24
Vitamin D3 1,250 mcg PO DAILY Supplement 02/23/25
apixaban 5 mg tablet (Eliquis) 5 mg PO BID Blood Clot Prevention/Tx 02/23/25
melatonin 3 mg tablet 3 mg PO HS PRN sleep 02/23/25
tacrolimus 1 mg capsule, immediate-release 1 mg PO BID Autoimmune Disorder 02/23/25
hydralazine 25 mg tablet 25 mg PO HSPRN PRN SBP>180 DBP>105 #30 tabs 02/26/25
levothyroxine 25 mcg tablet 25 mcg PO DAILY @ 0600 #30 tabs 02/26/25
metoprolol succinate 25 mg tablet,extended release 24 hr 12.5 mg (1/2 x 25 mg) PO DAILY #15 tabs 02/26/25
midodrine 5 mg tablet 5 mg PO TIDPRN PRN on activity and low SBP <110 #90 tabs 02/26/25
pantoprazole 40 mg tablet,delayed release 40 mg PO DAILY #30 tabs 02/26/25
BMP #1 ea 03/27/25
cefdinir 300 mg capsule 300 mg PO DAILY 6 days #6 caps 03/29/25
insulin glargine 100 unit/mL (3 mL) subcutaneous pen (Lantus Solostar U-100 Insulin) 40 unit (0.4 mL) SC HS diabetes #0 mL 03/29/25
insulin lispro 100 unit/mL subcutaneous pen (Humalog KwikPen (U-100) Insulin) 16 unit (0.16 mL) SC AC Diabetes #0 mL 03/29/25
prednisone 5 mg tablet 5 mg PO DAILY #0 tabs 03/29/25
sodium bicarbonate 650 mg tablet 650 mg PO TID 30 days #90 tabs 03/29/25
tamsulosin 0.4 mg capsule 0.4 mg PO DAILY 30 days #30 caps 03/29/25
Home Medication Changes
cefdinir 300 mg capsule 300 mg PO DAILY 6 days #6 caps 03/29/25
insulin glargine 100 unit/mL (3 mL) subcutaneous pen (Lantus Solostar U-100 Insulin) 40 unit (0.4 mL) SC HS diabetes #0 mL 03/29/25
insulin lispro 100 unit/mL subcutaneous pen (Humalog KwikPen (U-100) Insulin) 16 unit (0.16 mL) SC AC Diabetes #0 mL 03/29/25
sodium bicarbonate 650 mg tablet 650 mg PO TID 30 days #90 tabs 03/29/25
tamsulosin 0.4 mg capsule 0.4 mg PO DAILY 30 days #30 caps 03/29/25
Pending Results: No
[2025-03-29 14:53] VITALS: BP 127/63
--- NOTE | 2025-03-29 15:28 | PTCARENOTE ---
Received patient this am AAOX3. Pt OOB to the bathroom with assistance x1. Tolerated diet well. Spoke with Dr. Machuca to clarify patients insulin orders at discharge. Pt being sent home on Standing Insulin with sera and Lantus at bed time. Pt not
to use sliding scale as per MD until after he follows up with PCP. [facility] an Leg bag teaching given to patient. Made patient comfortable. Cont to assess pt status.
== END 2025-03-29 15:45 | disposition home health service (06) | DRG 683 ==
LOC: 4 EAST ACU 02:13
PROVIDERS: Emergency Medicine; Hospitalist; Internal Medicine; Physician Assistant; ADMITTING PHYSICIAN Internal Medicine; ATTENDING PHYSICIAN Internal Medicine; EMERGENCY PHYSICIAN Student in an Organized Health Care Education/Training Program; FAMILY PHYSICIAN Internal Medicine; OTHER PHYSICIAN Internal Medicine Infectious Disease; OTHER PHYSICIAN Specialist
DX: N17.9 Acute kidney failure, unspecified (principal); D84.9 Immunodeficiency, unspecified; N39.0 Urinary tract infection, site not specified; E87.21 Acute metabolic acidosis; E87.22 Chronic metabolic acidosis; I13.2 Hypertensive heart and chronic kidney disease with heart failure and with stage 5 chronic kidney disease, or end stage renal disease; I50.30 Unspecified diastolic (congestive) heart failure; N25.81 Secondary hyperparathyroidism of renal origin; E87.5 Hyperkalemia; B96.1 Klebsiella pneumoniae [K. pneumoniae] as the cause of diseases classified elsewhere; N18.32 Chronic kidney disease, stage 3b; G47.419 Narcolepsy without cataplexy; I48.0 Paroxysmal atrial fibrillation; I95.1 Orthostatic hypotension; E11.22 Type 2 diabetes mellitus with diabetic chronic kidney disease; G47.00 Insomnia, unspecified; N40.0 Benign prostatic hyperplasia without lower urinary tract symptoms; F41.9 Anxiety disorder, unspecified; E11.43 Type 2 diabetes mellitus with diabetic autonomic (poly)neuropathy; I25.10 Atherosclerotic heart disease of native coronary artery without angina pectoris; D64.9 Anemia, unspecified; F32.A Depression, unspecified; R33.9 Retention of urine, unspecified; F90.9 Attention-deficit hyperactivity disorder, unspecified type; G47.33 Obstructive sleep apnea (adult) (pediatric); H35.30 Unspecified macular degeneration; Z87.440 Personal history of urinary (tract) infections; Z79.899 Other long term (current) drug therapy; Z87.891 Personal history of nicotine dependence; Z79.01 Long term (current) use of anticoagulants; Z79.4 Long term (current) use of insulin; Z79.82 Long term (current) use of aspirin; Z79.890 Hormone replacement therapy
CPT/HCPCS: 70450; 76776; 80048; 80053; 80197; 81003; 81015; 82947; 82962; 85025; 85027; 87077; 87086; 87186; 93005; 96361; 96374; 97162; 99285; J7030

== ENCOUNTER → 2025-04-09 11:18 | Outpatient (REF) | payer MEDICARE, OTHER, SELFPAY ==
[2025-04-09 12:02] LABS: Hematocrit 38.4 % (39.0-52.0); Hemoglobin 11.5 g/dL (13.0-18.0); Mean Corp Hgb Conc. 29.9 g/dL (33.0-37.0); Mean Corpuscular Volume 89.3 fL (80.0-94.0); Nucleated Red Blood Cells % 0 % (-); Platelet Count 235 10^3/uL (130-400); Red Cell Dist. Width 16.7 % (11.5-14.5)
[2025-04-09 13:30] LABS: ALT (SGPT) 23 U/L (0-50); AST (SGOT) 15 U/L (17-59); Albumin 4.1 g/dl (3.5-5.0); Alkaline Phosphatase 99 U/L (38-126); Blood Urea Nitrogen 50 mg/dl (9-20); Calcium 9.2 mg/dl (8.4-10.2); Carbon Dioxide 23 mmol/L (22-30); Chloride 109 mmol/L (98-107); Glucose 110 mg/dl (70-99); Potassium 4.8 mmol/L (3.5-5.1); Sodium 140 mmol/L (135-145); Total Protein 7.0 g/dl (6.3-8.2); eGFR 34.81
== END ==
LOC: CLAB 11:18
PROVIDERS: ATTENDING PHYSICIAN Internal Medicine
DX: I95.1 Orthostatic hypotension (principal); N17.9 Acute kidney failure, unspecified
CPT/HCPCS: 36415; 80053; 84100; 85025

== ENCOUNTER → 2025-04-19 11:17 | Outpatient (REF) | payer MEDICARE, OTHER, SELFPAY ==
[2025-04-19 11:27] LABS: Hematocrit 38.1 % (39.0-52.0); Hemoglobin 11.5 g/dL (13.0-18.0); Mean Corp Hgb Conc. 30.2 g/dL (33.0-37.0); Mean Corpuscular Volume 88.4 fL (80.0-94.0); Nucleated Red Blood Cells % 0 % (-); Platelet Count 228 10^3/uL (130-400); Red Cell Dist. Width 17.2 % (11.5-14.5)
[2025-04-19 11:35] LABS: ALT (SGPT) 14 U/L (0-50); AST (SGOT) 10 U/L (17-59); Albumin 4.2 g/dl (3.5-5.0); Alkaline Phosphatase 94 U/L (38-126); Blood Urea Nitrogen 48 mg/dl (9-20); Calcium 9.2 mg/dl (8.4-10.2); Carbon Dioxide 20 mmol/L (22-30); Chloride 110 mmol/L (98-107); Glucose 272 mg/dl (70-99); Potassium 4.9 mmol/L (3.5-5.1); Sodium 140 mmol/L (135-145); Total Protein 6.7 g/dl (6.3-8.2); eGFR 37.02
== END ==
LOC: OLAB 11:17
PROVIDERS: ATTENDING PHYSICIAN Internal Medicine
DX: I95.1 Orthostatic hypotension (principal)
CPT/HCPCS: 80053; 85025

== ENCOUNTER → 2025-05-26 07:00 | Outpatient (REF) | payer MEDICARE, OTHER, SELFPAY ==
[2025-05-26 07:54] LABS: Hematocrit 39.2 % (39.0-52.0); Hemoglobin 12.3 g/dL (13.0-18.0); Mean Corp Hgb Conc. 31.4 g/dL (33.0-37.0); Mean Corpuscular Volume 87.9 fL (80.0-94.0); Nucleated Red Blood Cells % 0 % (-); Platelet Count 186 10^3/uL (130-400); Red Cell Dist. Width 15.4 % (11.5-14.5)
[2025-05-26 08:03] LABS: Urine Character Cloudy (Clear)
[2025-05-26 08:18] LABS: Urine Squamous Cell 0-2 /LPF (Few); Urine White Cell 50-60 /HPF (0-5)
[2025-05-26 08:19] LABS: Urine Red Blood Cell 0-2 /HPF (0-2)
[2025-05-26 08:48] LABS: Albumin 4.4 g/dl (3.5-5.0); Blood Urea Nitrogen 44 mg/dl (9-20); Calcium 9.4 mg/dl (8.4-10.2); Carbon Dioxide 25 mmol/L (22-30); Chloride 104 mmol/L (98-107); Glucose 206 mg/dl (70-99); Potassium 5.0 mmol/L (3.5-5.1); Sodium 139 mmol/L (135-145); eGFR 34.59
[2025-05-28 10:18] LABS: Tacrolimus (Prograft - FK506) 2.5 ng/mL
== END ==
LOC: REG 07:00
PROVIDERS: ATTENDING PHYSICIAN Internal Medicine; FAMILY PHYSICIAN Internal Medicine
DX: N17.9 Acute kidney failure, unspecified (principal); Z94.0 Kidney transplant status
CPT/HCPCS: 36415; 80069; 80197; 81003; 81015; 82570; 84156; 85025

== ENCOUNTER → 2025-06-08 07:49 | Outpatient (REF) | payer MEDICARE, OTHER, SELFPAY ==
[2025-06-08 08:42] LABS: Hematocrit 39.4 % (39.0-52.0); Hemoglobin 12.4 g/dL (13.0-18.0); Mean Corp Hgb Conc. 31.5 g/dL (33.0-37.0); Mean Corpuscular Volume 85.5 fL (80.0-94.0); Nucleated Red Blood Cells % 0 % (-); Platelet Count 236 10^3/uL (130-400); Red Cell Dist. Width 15.0 % (11.5-14.5)
[2025-06-08 09:14] LABS: Albumin 4.4 g/dl (3.5-5.0); Blood Urea Nitrogen 42 mg/dl (9-20); Calcium 9.5 mg/dl (8.4-10.2); Carbon Dioxide 25 mmol/L (22-30); Chloride 107 mmol/L (98-107); Glucose 126 mg/dl (70-99); Magnesium 1.6 mg/dl (1.6-2.3); Potassium 4.4 mmol/L (3.5-5.1); Sodium 139 mmol/L (135-145); eGFR 36.79
[2025-06-10 07:00] LABS: Tacrolimus (Prograft - FK506) 4.1 ng/mL
== END ==
LOC: REG 07:49
PROVIDERS: ATTENDING PHYSICIAN Internal Medicine
DX: N18.6 End stage renal disease (principal); E87.5 Hyperkalemia; Z94.0 Kidney transplant status; I10 Essential (primary) hypertension
CPT/HCPCS: 36415; 80069; 80197; 83735; 85025

== ENCOUNTER 2025-06-16 12:24 | Emergency (ER) | payer MEDICARE, OTHER, SELFPAY ==
[2025-06-16 12:32] VITALS: BP 166/72
--- NOTE | 2025-06-16 14:16 | ED.GENMED ---
History of Present Illness
General
Chief Complaint: Catheter/Tube Problem
Source: patient
Exam Limitations: none
Time Seen by Provider: 06/16/25 13:42
Nursing documentation reviewed up to this point in time: agreed with
History of Present Illness
History of Present Illness:
75-year-old male with history as noted significant for prior renal transplant presents for evaluation of catheter issue. Patient says he has had a Davenport catheter in for about 5 weeks (chart review shows that it was placed during an admission in
March). He has a history of BPH and urinary retention. He says that he is supposed to have an appointment on 07/[address] Deleon for a trial of void. He says that over the past 24 hours he noticed that there is some leaking around the
catheter and so he came to the ER for assessment. He denies any abdominal or flank pain, fevers or chills or any other complaints.
Past History
Past History
ED Past Medical History: CVA, HTN, Hypercholesterolemia, IDDM, Renal failure (Dialysis and saturday, Right arm fistula), Psychiatric ( anxiety, depression) and Other (Diabetic neuropathy, meningitis,UTI, macular degeneration, diabetic
nephropathy, Narcolepsy, )
ED Past Surgical History: Appendectomy and Other (Right AV fistula. Renal transplant October 2022)
Social History
Tobacco: Former smoker
Alcohol: None
Drug: None
Personal:
Living: with family
Employment: Employed
Family History
Family History: Diabetes
Review of Systems
Review of Systems
All Other Systems: ROS reviewed and negative except as documented in HPI and ROS
: Reports other (Catheter leaking)
Phy Exam
Physical Exam
Physical Exam:
General: Well appearing and non-toxic
HEENT: protecting airway
Neck: appears supple
CV: No evidence of cyanosis
Resp: No accessory muscle use
Abd: Non-distended, nontender
: Davenport catheter in place bag filled with light yellow urine; no leakage noted during my assessment
Extremities: No deformities
Neuro: Alert
Psych: Normal affect
Skin: Intact
Scores
Heart Failure Risk
Heart Failure Risk Score: Not Applicable
Heart Score for Chest Pain Patients
STEMI patient?: Not applicable
Withdrawal Assessment of Alcohol
Withdrawal Assessment Completed?: Not applicable
Course
Vital Signs
Initial and Last Documented VS:
Initial Vital Signs
Temp Pulse Resp BP Pulse Ox
36.9 C 63 19 166/72 97
06/16/25 12:32 06/16/25 12:32 06/16/25 12:32 06/16/25 12:32 06/16/25 12:32
Last Documented Vital Signs
Temp Pulse Resp BP Pulse Ox
36.9 C 63 19 166/72 97
06/16/25 12:32 06/16/25 12:32 06/16/25 12:32 06/16/25 12:32 06/16/25 14:20
MDM/Problems Addressed
Differential Diagnosis Includes:
Balloon malfunction, catheter tear/leak
MDM/Problems Addressed:
75-year-old male presents with leaking around the Davenport catheter�catheter has been in place he says for 5 weeks and he has an appointment in few weeks for trial of void. Vitals and exam as above. Catheter appears intact and functional during my
assessment no leakage noted here in the ER. He is requesting that we remove the catheter for trial of void today. I do not think this is unreasonable�will plan to touch base with his urologist and if they are agreeable we can remove for trial of
void today.
Discussed case with urologist at [facility] catheter exchange rather than trial of void today and patient is agreeable. Will exchange catheter and discharge with outpatient urology follow-up.
Chronic conditions affecting care:
BPH
*Pulse Oximetry
SaO2: 97
Oxygen Mode of Delivery: Room air
Patient hypoxic: no (97%)
*Critical Care Note
Total Time (30-74mins, 75-104mins- exclusive of procedures): Not Applicable
Data Reviewed
Source: patient
Patient Management
Discussion with other providers: Quality Assurance Qa Lab Analyst (Discussed with urologist at [place])
ED Attending Note
-
Portions of this chart may have been created with voice recognition software.� Occasional wrong word or��sound alike� substitutions may have occurred due to the inherent limitations of voice recognition software.
Discharge Plan
Departure
Patient Disposition: Home (Routine Discharge)
Date of Disposition: 06/16/25
Time of Disposition: 14:46
Patient with high blood pressure during this ER visit?: Yes
Discharge Problem:
Complication of Davenport catheter
Instructions: How to Care for Your Davenport Catheter, Male
Prescriptions:
No Action
mycophenolate sodium 180 mg tablet,delayed release (DR/EC)
720 mg PO BID
atorvastatin [Lipitor] 40 mg Tablet
40 mg PO DAILY
aspirin 81 mg Tablet,Delayed Release (Dr/Ec)
81 mg PO DAILY
omega-3 acid ethyl esters [Lovaza] 1 gram Capsule
1 cap PO BID
magnesium oxide 400 mg magnesium Tablet
400 mg PO BID
Patient Comments:
12/28 SENIOR SALES DIRECTOR: PER PATIENT, HE TAKES IT BID, RX FOR DAILY
melatonin 3 mg Tablet
3 mg PO HS PRN (Reason: sleep)
Eliquis 5 mg Tablet
5 mg PO BID
Vitamin D3
1,250 mcg PO DAILY
tacrolimus 1 mg capsule
1 mg PO BID
midodrine 5 mg Tablet
5 mg PO TIDPRN PRN (Reason: on activity and low SBP <110) Qty: 90 0RF
hydralazine 25 mg Tablet
25 mg PO HSPRN PRN (Reason: SBP>180 DBP>105) Qty: 30 0RF
levothyroxine 25 mcg Tablet
25 mcg PO DAILY @ 0600 Qty: 30 0RF
pantoprazole 40 mg Tablet,Delayed Release (Dr/Ec)
40 mg PO DAILY Qty: 30 0RF
metoprolol succinate 25 mg Tablet Extended Release 24 Hr
12.5 mg PO DAILY Qty: 15 0RF
(DME) BMP
See Rx Instructions .Route .MEDSUPPLY Qty: 1 0RF
Rx Instructions:
BMP in 1 week
Dx ; CKD IIIB/IV of transplant kidney
Forward result to Primary care and editorial director
tamsulosin 0.4 mg Capsule
0.4 mg PO DAILY 30 Days Qty: 30 0RF
prednisone 5 mg Tablet
5 mg PO DAILY Qty: 0 0RF
sodium bicarbonate 650 mg Tablet
650 mg PO TID 30 Days Qty: 90 0RF
insulin glargine [Lantus Solostar U-100 Insulin] 100 unit/mL (3 mL) insulin pen
40 unit SC HS Qty: 0 0RF
cefdinir 300 mg Capsule
300 mg PO DAILY 6 Days Qty: 6 0RF
insulin lispro [Humalog KwikPen Insulin] 100 UNIT/ML insulin pen
16 unit SC AC Qty: 0 0RF
Referrals:
Frankie Deleon MD [Non-Admitting Privileges, Urology] - Call in 1-3 days for appt
Activity Restrictions/Additional Instructions:
Follow-up with your urologist as scheduled. Please return with any issues.
Interventions
Interventions:
*Risk Screen - Suicide Last Done: 06/16/25 12:32
*General Assessment Last Done: 06/16/25 12:32
*Neglect/Abuse Screening Last Done: 06/16/25 12:32
*ED COVID-19 Vaccine History Last Done: 06/16/25 13:46
*ED Influenza Vaccine History Last Done: 06/16/25 13:46
MY-Ydsdxo-Lemnixjfup Assessment Last Done: 06/16/25 14:26
ED-Male Genitourinary Assessment Last Done: 06/16/25 14:26
Discharge Date and Time
Print Language: MAORI
== END 2025-06-16 15:40 | disposition home or self-care (01) ==
LOC: EMR 12:24
PROVIDERS: EMERGENCY PHYSICIAN Emergency Medicine; FAMILY PHYSICIAN Internal Medicine
DX: T83.031A Leakage of indwelling urethral catheter, initial encounter (principal); Y84.6 Urinary catheterization as the cause of abnormal reaction of the patient, or of later complication, without mention of misadventure at the time of the procedure; E11.22 Type 2 diabetes mellitus with diabetic chronic kidney disease; N18.6 End stage renal disease; I12.0 Hypertensive chronic kidney disease with stage 5 chronic kidney disease or end stage renal disease; Z99.2 Dependence on renal dialysis; Z94.0 Kidney transplant status; E78.00 Pure hypercholesterolemia, unspecified; I10 Essential (primary) hypertension; Z86.73 Personal history of transient ischemic attack (TIA), and cerebral infarction without residual deficits; Z87.891 Personal history of nicotine dependence; Z90.49 Acquired absence of other specified parts of digestive tract
CPT/HCPCS: 51702; 99283

== ENCOUNTER 2025-07-01 08:17 | Outpatient (REF) | payer MEDICARE, OTHER, SELFPAY | END 2025-07-01 23:59 | disposition home or self-care (01) | LOC: WOUND 08:17 | PROVIDERS: ATTENDING PHYSICIAN Registered Nurse; FAMILY PHYSICIAN Internal Medicine | DX: L97.521 Non-pressure chronic ulcer of other part of left foot limited to breakdown of skin (principal); Z94.0 Kidney transplant status; Z79.620 Long term (current) use of immunosuppressive biologic; E11.9 Type 2 diabetes mellitus without complications | CPT/HCPCS: 99204 ==